=== PATIENT | female | born 1990 | race Caucasian/White ===

== ENCOUNTER → 2018-05-07 15:13 | Outpatient (CLI) | payer MEDICAID, SELFPAY ==
[2018-05-07 16:15] LABS: Thyroid Stimulating Hormone 0.78 uIU/ml (0.358-3.740)
[2018-05-09 07:54] LABS: Prolactin 17.6 ng/mL (4.8-23.3)
== END ==
PROVIDERS: Visit Provider Obstetrics & Gynecology
DX: N64.3 Galactorrhea not associated with childbirth (principal)
CPT/HCPCS: 36415; 84146; 84443

== ENCOUNTER → 2018-05-17 15:03 | Outpatient (CLI) | payer MEDICAID, SELFPAY ==
--- NOTE | 2018-05-17 15:05 | US_ITS ---
US breast LT complete INDICATION: Pain and discharge ORDERING PHYSICIAN: Regulo Morataya MD PATIENT AGE: 27 years COMPARISON: None TECHNIQUE: Left breast ultrasound performed with axilla FINDINGS: No solid or cystic nodules evident. Small nodes present in the axilla IMPRESSION: Negative BI-RADS Category: 1 Negative Recommendations: Correlation with physical exam required. Negative mammogram negative ultrasound does not exclude the possibility of malignancy especially there is a palpable nodule. In the palpable nodule should be managed on clinical basis (A letter has been sent to the patient regarding results of the study.)
--- NOTE | 2018-05-17 15:05 | US_ITS ---
US transvaginal HISTORY: Right lower quadrant pain ITS.REASON: breast pain and discharge ORDERING PHYSICIAN: Regulo Morataya MD PATIENT AGE: 27 years Comparison: None FINDINGS: There has been a prior hysterectomy. The right ovary is 3.8 x 1.7 cm. Blood flow is present. No mass or cyst. The left ovary is 4 x 2.6 cm with blood flow noted. No mass or cyst evident. No cul-de-sac fluid. IMPRESSION: Prior hysterectomy otherwise negative pelvic ultrasound
== END ==
PROVIDERS: PCP Obstetrics & Gynecology; Visit Provider Obstetrics & Gynecology
DX: R10.2 Pelvic and perineal pain (principal); N64.4 Mastodynia
CPT/HCPCS: 76641; 76830

== ENCOUNTER → 2018-06-28 09:01 | Outpatient (CLI) | payer MEDICAID, SELFPAY ==
[2018-06-28 09:05] LABS: Microscopic, Urine URINE MICROSCOPIC (MICROSCOPIC)
[2018-06-28 09:53] LABS: Basophils % 0.8 % (0.1-2.0); Eosinophils # 0.3 K/mm3 (0.0-0.4); Eosinophils % 6.7 % (0.1-12.0); Hemoglobin 13.6 g/dL (12.2-16.2); Lymphocytes # 1.9 K/mm3 (0.7-4.5); Lymphocytes % 37.2 % (10-50); Mean Corpuscular HGB Conc 33.1 g/dL (31.8-35.4); Mean Corpuscular Hemoglobin 28.6 pg (27.0-31.2); Mean Corpuscular Volume 86.5 fl (81-99); Mean Platelet Volume 8.1 fl (7.4-10.4); Monocytes # 0.2 K/mm3 (0.1-1.0); Monocytes % 3.7 % (1.7-9.3); Neutrophils # 2.6 K/mm3 (1.8-7.8); Neutrophils % 51.7 % (37.0-80.0); Platelet Count 292 K/mm3 (142-424); Red Blood Count 4.75 M/mm3 (4.20-5.40); Red Cell Distribution Width 12.3 % (11.5-17.5); White Blood Count 5.1 K/mm3 (4.8-10.8)
[2018-06-28 10:34] LABS: Appearance,Urine CLEAR (Clear); Bilirubin,Urine Negative (Negative); Blood, Urine Negative (Negative); Color,Urine YELLOW (Yellow); Glucose,Urine (UA) Negative (Negative); Ketones,Urine Negative (Negative); Leukocyte Esterase,Urine Negative (Negative); Nitrate,Urine Negative (Negative); Protein,Urine Negative (Negative); Specific Gravity, Urine 1.025 (1.005-1.030); Urobilinogen,Urine 0.2 EU/dl (0.2)
[2018-06-28 10:35] LABS: Urine Pregnancy, HCG Qual. Negative (Negative)
[2018-06-28 10:56] LABS: Bacteria,Urine 4+ /lpf; RBC,Urine Occasional #/hpf (0-3); Trichomonas,Urine 1+ /lpf
[2018-06-28 11:10] LABS: Alanine Aminotransferase 27 U/L (12-78); Albumin Level 3.6 gm/dL (3.4-5.0); Alkaline Phosphatase 80 U/L (46-116); Anion Gap 14.2 mEq/L (5-15); Aspartate Amino Transferase 13 U/L (15-37); Bilirubin,Total 0.3 mg/dL (0.2-1.0); Blood Urea Nitrogen 7 mg/dL (7-18); Calcium 8.6 mg/dL (8.5-10.1); Carbon Dioxide 24 mmol/L (21.0-32.0); Chloride 105 mmol/L (98-107); Creatinine,Serum 0.62 mg/dL (0.55-1.02); Estimated Glomerular Filt Rate 114 ml/min (>60); GFR (African American) 138 ML/MIN (>60); Globulin 3.6 gm/dl (1.3-3.2); Glucose 118 mg/dL (74-106); Potassium 4.2 mmoL/L (3.5-5.1); Sodium 139 mmol/L (136-145); Total Protein,Serum 7.2 gm/dL (6.4-8.2)
== END ==
PROVIDERS: Visit Provider Obstetrics & Gynecology
DX: Z01.818 Encounter for other preprocedural examination (principal); R10.2 Pelvic and perineal pain
CPT/HCPCS: 36415; 80053; 81001; 81025; 85025; 87086; 87088; 87186

== ENCOUNTER → 2018-09-14 09:15 | Outpatient (CLI) | payer MEDICAID, SELFPAY ==
[2018-09-14 09:19] LABS: Microscopic, Urine URINE MICROSCOPIC (MICROSCOPIC)
[2018-09-14 09:50] LABS: Basophils # 0.1 K/mm3 (0-0.2); Eosinophils # 0.3 K/mm3 (0.0-0.4); Eosinophils % 6.4 % (0.1-12.0); Hemoglobin 12.4 g/dL (12.2-16.2); Lymphocytes # 1.7 K/mm3 (0.7-4.5); Lymphocytes % 32.4 % (10-50); Mean Corpuscular HGB Conc 32.7 g/dL (31.8-35.4); Mean Corpuscular Hemoglobin 27.9 pg (27.0-31.2); Mean Corpuscular Volume 85.3 fl (81-99); Mean Platelet Volume 7.9 fl (7.4-10.4); Monocytes # 0.3 K/mm3 (0.1-1.0); Monocytes % 5.1 % (1.7-9.3); Neutrophils # 2.9 K/mm3 (1.8-7.8); Neutrophils % 55.1 % (37.0-80.0); Platelet Count 293 K/mm3 (142-424); Red Blood Count 4.46 M/mm3 (4.20-5.40); Red Cell Distribution Width 13.2 % (11.5-17.5); White Blood Count 5.3 K/mm3 (4.8-10.8)
[2018-09-14 10:04] LABS: Appearance,Urine TURBID (Clear); Bilirubin,Urine Negative (Negative); Blood, Urine Negative (Negative); Color,Urine YELLOW (Yellow); Glucose,Urine (UA) Negative (Negative); Ketones,Urine Negative (Negative); Leukocyte Esterase,Urine Negative (Negative); Nitrate,Urine Negative (Negative); PH,Urine 5.5 (5.0-8.5); Protein,Urine Negative (Negative); Specific Gravity, Urine >= 1.030 (1.005-1.030); Urobilinogen,Urine 0.2 EU/dl (0.2)
[2018-09-14 10:16] LABS: Bacteria,Urine 1+ /lpf; RBC,Urine Occasional #/hpf (0-3)
[2018-09-14 12:08] LABS: Alanine Aminotransferase 53 U/L (12-78); Albumin Level 3.4 gm/dL (3.4-5.0); Alkaline Phosphatase 71 U/L (46-116); Aspartate Amino Transferase 21 U/L (15-37); Bilirubin,Total 0.4 mg/dL (0.2-1.0); Blood Urea Nitrogen 6 mg/dL (7-18); Calcium 8.8 mg/dL (8.5-10.1); Carbon Dioxide 26 mmol/L (21.0-32.0); Chloride 104 mmol/L (98-107); Creatinine,Serum 0.77 mg/dL (0.55-1.02); Estimated Glomerular Filt Rate 89 ml/min (>60); GFR (African American) 107 ML/MIN (>60); Globulin 3.3 gm/dl (1.3-3.2); Glucose 165 mg/dL (74-106); HCG,Quantitative 0 mIU/mL; Sodium 138 mmol/L (136-145); Total Protein,Serum 6.7 gm/dL (6.4-8.2)
== END ==
PROVIDERS: Visit Provider Obstetrics & Gynecology
DX: Z01.818 Encounter for other preprocedural examination (principal); R10.2 Pelvic and perineal pain
CPT/HCPCS: 36415; 80053; 81001; 84702; 85025

== ENCOUNTER → 2018-09-20 10:06 | Outpatient (CLI) | payer MEDICAID, SELFPAY ==
[2018-09-20 11:52] LABS: Basophils % 0.6 % (0.1-2.0); Eosinophils # 0.2 K/mm3 (0.0-0.4); Eosinophils % 3.5 % (0.1-12.0); Hematocrit 38.2 % (37.0-47.0); Hemoglobin 12.5 g/dL (12.2-16.2); Lymphocytes # 3.1 K/mm3 (0.7-4.5); Lymphocytes % 44.7 % (10-50); Mean Corpuscular HGB Conc 32.8 g/dL (31.8-35.4); Mean Corpuscular Hemoglobin 29.3 pg (27.0-31.2); Mean Corpuscular Volume 89.3 fl (81-99); Mean Platelet Volume 8.3 fl (7.4-10.4); Monocytes # 0.3 K/mm3 (0.1-1.0); Neutrophils # 3.3 K/mm3 (1.8-7.8); Neutrophils % 47.3 % (37.0-80.0); Platelet Count 313 K/mm3 (142-424); Red Blood Count 4.28 M/mm3 (4.20-5.40); Red Cell Distribution Width 13.5 % (11.5-17.5)
[2018-09-20 11:57] LABS: Anion Gap 13.6 mEq/L (5-15); Blood Urea Nitrogen 11 mg/dL (7-18); Calcium 8.9 mg/dL (8.5-10.1); Carbon Dioxide 27 mmol/L (21.0-32.0); Chloride 106 mmol/L (98-107); Creatinine,Serum 0.86 mg/dL (0.55-1.02); Estimated Glomerular Filt Rate 78 ml/min (>60); GFR (African American) 94 ML/MIN (>60); Glucose 138 mg/dL (74-106); Potassium 3.6 mmoL/L (3.5-5.1); Sodium 143 mmol/L (136-145)
== END ==
PROVIDERS: Visit Provider Obstetrics & Gynecology
DX: G89.18 Other acute postprocedural pain (principal)
CPT/HCPCS: 36415; 80048; 85025

== ENCOUNTER 2019-07-22 15:38 | Emergency (ER) | payer MEDICAID, SELFPAY ==
[2019-07-22 16:01] VITALS: BP 133/105; PULSE 114; RESP 20; TEMP 36.6; O2SAT 97; BMI 58.6
--- NOTE | 2019-07-22 16:06 | HMH.EDUTC ---
[facility] – [place] Disposition Clinical Impression: Allergic reaction Qualifiers: Encounter type: initial encounter Qualified Code(s): T78.40XA - Allergy, unspecified, initial encounter Disposition: Home, Self-Care Condition on Discharge: Good Instructions: DI for General Allergic Reactions, Azithromycin, Prednisone Additional Instructions: Stop taking Augmentin and make sure to alert your family provider and pharmacy that you had a reaction to this medication *Start azithromycin Start Medrol dose pack tomorrow as you had steriod shot in [facility] today Return if needed Follow up with family doctor if no improvement or any worsening of symptoms Straight to ER if any life threatening symptoms Prescriptions: methylPREDNISolone [Medrol 4mg tab] 4 mg PO DIRECTED #21 tab Transmission Status: Received by [id number] Azithromycin [Z-Maximiliano 250mg Tab] 250 mg PO DIRECTED #6 tab Transmission Status: Received by [id number] Referrals: Radha Chau MD [Primary Care Provider] - As needed Time of Disposition: 16:39 Medical Decision Making - Stepan Inquiry Pt receiving controlled substance: No Stepan was queried for this patient: No Vital Signs: 07/22/19 16:01 Temperature 97.8 F Temperature Source Oral Pulse Rate [Right Brachial] 114 H Respiratory Rate 20 Blood Pressure [Right Arm] 133/105 H Blood Pressure Mean [Right Arm] 114 Blood Pressure Source [Right Arm] Automatic Cuff Blood Pressure Position [Right Arm] Sitting 02 Sat by Pulse Oximetry 97 Oxygen Delivery Method Room Air Orders (Tests/Meds): ED MEDICATIONS Discontinued Medications Generic Name Dose Route Start Last Admin Trade Name Freq PRN Reason Stop Dose Admin Famotidine 20 mg 07/22/19 16:14 07/22/19 16:25 Pepcid 20mg Tablet PO 07/22/19 16:15 20 mg ONCE ONE Administration Loratadine 10 mg 07/22/19 16:14 07/22/19 16:25 Claritin 10mg Tablet PO 07/22/19 16:15 10 mg ONCE ONE Administration Methylprednisolone Sodium Succinate 125 mg 07/22/19 16:13 07/22/19 16:25 Solu-Medrol 125mg/2ml Vial IM 07/22/19 16:14 125 mg ONCE ONE Administration - Physician Consults Physician Consulted: Isac Time: 16:10 Comment/Response: Spoke with Dr Chau patient PCP nurse which was speaking with Dr Chau, advised that patient was having a reaction to Augmentin that she was given on Monday for PN and was changing it to Zpack and given oral steroids for home and she agreed - Reevaluation(s) Time: 16:38 Reevaluation #1: Rash improved after injection Patient educated to stop taking Augmentin and start azithromycin Follow up with family doctor if rash returns [facility] – [place] HPI - General Stated complaint: possible allergic reaction Time Seen by Provider: 07/22/19 16:13 Mode of Arrival: Ambulatory Source of Information: Patient Limitations: No Limitations Description of Symptoms (Recalled from Triage Doc. by RN): PATIENT C/O ITCHY, RED, RAISED RASH TO BILATERAL LEGS, BACK, AND RIGHT BREAST SINCE YESTERDAY. PATIENT RECENTLY STARTED ON AUGMENTIN FOR PNEUMONIA ON MONDAY HEENT Symptoms (Recalled from RN notes): No Resp Symptoms (Recalled from RN notes): No Skin Symptoms (Recalled from RN notes): Yes MS Symptoms (Recalled from RN notes): No Functional Status (Recalled from RN notes): WNL - History of Present Illness Provider Complaint: Patient state that she was started on Augmentin on Monday for Pneumonia and then yesterday she started breaking out in rash and her lips was swollen and she took some benadryl and it helped but today took the medication again and started breaking out again State that she took a benadryl prior to arrival and it has helped some - Related Data Home Medications Medication Instructions Recorded Confirmed Amoxicillin/Potassium Clav 1 tab PO Q12H 07/22/19 07/22/19 [Augmentin 875-125 Tablet] Escitalopram Oxalate [Lexapro] 20 mg PO DAILY 07/22/19 07/22/19 Promethazine HCl [Phenergan 25mg 25 mg PO Q6H
[2019-07-22 16:43] VITALS: BP 150/97; PULSE 114; RESP 20; TEMP 36.6; O2SAT 97
== END 2019-07-22 16:45 | disposition home or self-care (01) ==
PROVIDERS: Emergency Provider Nurse Practitioner; PCP Family Medicine
DX: L27.0 Generalized skin eruption due to drugs and medicaments taken internally (principal); T36.0X5A Adverse effect of penicillins, initial encounter; T36.1X5A Adverse effect of cephalosporins and other beta-lactam antibiotics, initial encounter; J45.909 Unspecified asthma, uncomplicated; E11.9 Type 2 diabetes mellitus without complications; K21.9 Gastro-esophageal reflux disease without esophagitis; E66.01 Morbid (severe) obesity due to excess calories; Z68.43 Body mass index [BMI] 50.0-59.9, adult; F33.1 Major depressive disorder, recurrent, moderate
CPT/HCPCS: 96372; 99201

== ENCOUNTER 2019-12-26 10:47 | Emergency (ER) | payer MEDICAID, SELFPAY ==
[2019-12-26 11:00] VITALS: BP 128/67; PULSE 107; RESP 20; TEMP 37.1; O2SAT 98; BMI 51.2
--- NOTE | 2019-12-26 11:22 | HMH.EDUTC ---
[facility] [place] Clinical Impression: Dizziness Disposition: Home, Self-Care Condition on Discharge: Good Instructions: Vertigo, Meclizine Additional Instructions: Take medication as prescribed Get outpatient tested as was ordered by your Family Physician Follow up with your Family Doctor as scheduled Return if needed Straight to ER If any life threatening symptoms Prescriptions: Meclizine HCl [Antivert 12.5mg tablet] 12.5 mg PO BID PRN #6 tab PRN Reason: Dizziness Transmission Status: Received by [id number] Referrals: Norah Monaco APRN [Primary Care Provider] - As needed Forms: Work/School Release Time of Disposition: 11:54 Medical Decision Making - Stepan Inquiry Pt receiving controlled substance: No Stepan was queried for this patient: No Vital Signs: 12/26/19 11:00 12/26/19 12:01 Temperature 98.7 F 98.7 F Temperature Source Oral Pulse Rate 107 H Pulse Rate [Right Brachial] 107 H Respiratory Rate 20 20 Blood Pressure 128/67 Blood Pressure [Right Arm] 128/67 Blood Pressure Mean [Right Arm] 87 Blood Pressure Source [Right Arm] Automatic Cuff Blood Pressure Position [Right Arm] Sitting 02 Sat by Pulse Oximetry 98 Oxygen Delivery Method Room Air Orders (Tests/Meds): ED MEDICATIONS Discontinued Medications Generic Name Dose Route Start Last Admin Trade Name Freq PRN Reason Stop Dose Admin Meclizine HCl 12.5 mg 12/26/19 11:30 12/26/19 11:42 Meclizine 12.5mg Tablet PO 12/26/19 11:31 12.5 mg ONCE ONE Administration - Physician Consults Physician Consulted: Norah Monaco Time: 11:30 Reason -: Other Comment/Response: Spoke with patients PCP at [facility] and they advised that they had seen patient on Monday and did Strep, Influenza and COVID swab and everything was negative and did not do any lab work, and prescribed her Zofran for N/V States that patient did come back in this morning stating that she wasnt feeling any better and they ordered some xrays and she acted upset and told them she was coming here Medical Decision Narrative: Spoke with patient about ordered tests that her PCP ordered and she advised that she had the order with her and plans on completing the testing after getting something to help with her dizziness States that she is just here to see if she can get something for dizziness Discussed transfer to the ED for further evaluation and patient declined State that she wants medication for her dizziness and she will follow up with her PCP also discussed where patient reported that she had lab work on Monday that said she had Ecoli in blood and patient reports that was an error States that when she was a child they found ecoli in her stool and told her that she may have it again and where she was having diarrhea she thought that may be the cause that her PCP did not do any Blood test on Monday Patient reports dizziness much improved after medication, patient was given outpatient order for diarrhea panel to collect stool for panel testing and requested results be sent to PCP due to history [facility] [place] - General Stated complaint: diagnosed e coli 1103, dizzy Time Seen by Provider: 12/26/19 11:22 Mode of Arrival: Ambulatory Source of Information: Patient Limitations: No Limitations Description of Symptoms (Recalled from Triage Doc. by RN): PATIENT C/O NAUSEA/VOMITING/DIARRHEA, HEADACHE, DIZZINESS, BODY ACHES, AND FEVER. SHE REPORTS SHE SAW PCP ON MONDAY WHO DID BLOOD WORK WHICH SHOWED E-COLI IN BLOOD. SHE ALSO STATES SHE SAW PCP THIS MORNING FOR CONTINUING SYMPTOMS. HEENT Symptoms (Recalled from RN notes): No Resp Symptoms (Recalled from RN notes): Yes Skin Symptoms (Recalled from RN notes): No MS Symptoms (Recalled from RN notes): No Functional Status (Recalled from RN notes): WNL - History of Present Illness Provider Complaint: Patient states that she saw her PCP earlier and patient reports she wasnt satisfied so she came here State that
[2019-12-26 12:01] VITALS: BP 128/67; PULSE 107; RESP 20; TEMP 37.1; O2SAT 98
== END 2019-12-26 12:08 | disposition home or self-care (01) ==
PROVIDERS: Emergency Provider Nurse Practitioner; PCP Nurse Practitioner
DX: R42 Dizziness and giddiness (principal); J45.909 Unspecified asthma, uncomplicated; F33.1 Major depressive disorder, recurrent, moderate; E11.9 Type 2 diabetes mellitus without complications; K21.9 Gastro-esophageal reflux disease without esophagitis; E66.01 Morbid (severe) obesity due to excess calories; Z68.43 Body mass index [BMI] 50.0-59.9, adult; Z79.899 Other long term (current) drug therapy
CPT/HCPCS: 99201

== ENCOUNTER 2020-03-15 15:02 | Emergency (ER) | payer MEDICAID, SELFPAY ==
[2020-03-15 15:07] VITALS: BP 133/90; PULSE 70; RESP 18; TEMP 36.9; O2SAT 97; BMI 43.3
--- NOTE | 2020-03-15 15:37 | HMH.EDANX ---
ED Disposition Clinical Impression: Acute anxiety Disposition: Home, Self-Care Condition on Discharge: Good Instructions: Anxiety and Panic Attacks (Alternative Therapy) Prescriptions: hydrOXYzine HCL [Hydroxyzine HCl] 50 mg PO Q8H PRN #30 tab PRN Reason: Anxiety Transmission Status: Pending to [id number] Referrals: Joyce Shaw [Primary Care Provider] - - Critical Care Critical Care Time: No Attestation: On 03/15/20, the high probability of a clinically significant, sudden or life threatening deterioration of the following system(s) required my full and direct attention, intervention and personal management. The time I documented below is in addition to time spent performing reported procedures but includes the following listed in this critical care notation. Medical Decision Making - Medical Records Medical records reviewed: Yes: I reviewed the patient's medical records. - Stepan Inquiry Pt receiving controlled substance: No Vital Signs: 03/15/20 15:07 Temperature 98.5 F Temperature Source Oral Pulse Rate [Left Radial] 70 Respiratory Rate 18 Blood Pressure [Left Arm] 133/90 Blood Pressure Mean [Left Arm] 104 Blood Pressure Source [Left Arm] Automatic Cuff Blood Pressure Position [Left Arm] Sitting 02 Sat by Pulse Oximetry 97 Oxygen Delivery Method Room Air Anxiety HPI - General Chief Complaint: Anxiety Stated Complaint: panic attack Time Seen by Provider: 03/15/20 15:30 Mode of Arrival: Ambulatory Source of Information: Patient Limitations: No Limitations Description of Symptoms (Recalled from ER Triage Doc. by RN): Pt reports I'm having a panic attack . Pt reports began getting anxious at aprox 1230 pm today, states no certain stressors, states has multiple life stressors at this time. Pt reports is currently taking Lexapro and is waiting on PA for Vraylar. - History of Present Illness HPI narrative: This is a 29-year-old female who presents with anxiety attack ongoing since earlier this afternoon. Patient reported anxiety began when taken by having go to work. 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 Patient feels short of breath chest tightness and is nauseated. Symptoms not palliated or provoked by any measure. No diaphoresis or orthopnea associated with her symptoms. Patient does report being on Lexapro but has also been placed on another anxiolytic but has not been able to get this medication due to lack of prior authorization. - Related Data Home Medications: Home Medications Medication Instructions Recorded Confirmed Budesonide 0.25 mg IH DAILY 12/26/19 12/26/19 Escitalopram Oxalate [Lexapro] 20 mg PO DAILY 12/26/19 12/26/19 Mirtazapine [Remeron 15mg tablet] 15 mg PO DAILY 12/26/19 12/26/19 Valacyclovir HCl [Valtrex] 1,000 mg PO DAILY 12/26/19 12/26/19 Previous Rx's Medication Instructions Recorded Meclizine HCl [Antivert 12.5mg 12.5 mg PO BID PRN #6 tab 12/26/19 tablet] hydrOXYzine HCL [Hydroxyzine HCl] 50 mg PO Q8H PRN #30 tab 03/15/20 Allergies/Adverse Reactions: Allergies Allergy/AdvReac Type Severity Reaction Status Date / Time amoxicillin Allergy Verified 12/26/19 11:14 venom-honey bee Allergy Unknown Verified 05/09/19 16:02 allergy reaction venom-wasp protein Allergy Unknown Verified 05/09/19 16:02 allergy reaction [facility] History - Hepatitis A Screen Drug use history?: No High risk sexual behaviors?: No History of sexually transmitted infection?: No Currently employed?: No Childcare worker?: No Do you have indoor plumbing?: Yes Do you have electricity?: Yes Attestation statement:: This patient has been screened for Hepatitis A risk factors. I have reviewed the patient's past medical history: Yes Medical Histo
[2020-03-15 16:16] VITALS: BP 136/86; PULSE 82; RESP 18; TEMP 36.9; O2SAT 97
== END 2020-03-15 16:16 | disposition home or self-care (01) ==
PROVIDERS: Emergency Provider Emergency Medicine; PCP Nurse Practitioner Family
DX: F41.0 Panic disorder [episodic paroxysmal anxiety] (principal); E11.9 Type 2 diabetes mellitus without complications; K21.9 Gastro-esophageal reflux disease without esophagitis; Z79.899 Other long term (current) drug therapy
CPT/HCPCS: 96372; 99281

== ENCOUNTER 2020-03-30 19:22 | Emergency (ER) | payer MEDICAID, SELFPAY ==
[2020-03-30 19:25] VITALS: BP 148/88; PULSE 106; RESP 16; TEMP 36.4; O2SAT 98; BMI 46.5
--- NOTE | 2020-03-30 19:45 | CT_ITS ---
PROCEDURE: CT ABDOMEN PELVIS W CON CLINICAL INDICATION: Abd pain Abdominal pain with nausea and vomiting COMPARISON: CT CT ABDOMEN PELVIS W CON from 01/23/2019 TECHNIQUE: IV Contrast: 75ML Isovue 370 Oral Contrast None Axial images obtained with sagittal and coronal reformats. All CT scans at the facility use one or more dose reduction, viz: automated exposure control, ma/kV adjustment per patient size (including targeted exams where dose is matched to indication, i.e. head), or iterative reconstruction technique. FINDINGS: LOWER THORAX: No acute finding ABDOMEN & PELVIS: There is a small hiatal hernia. Prior cholecystectomy borderline splenomegaly at 14 cm. The adrenal glands and pancreas have an unremarkable appearance. No renal or ureteral calculi. No hydronephrosis. Prior appendectomy. Prior hysterectomy. There is a small umbilical hernia which contains fat. No evidence of diverticulitis. There are few scattered small nodes in the mesenteries. No acute bony findings. IMPRESSION: No acute abdominal or pelvic findings Dictated by: Braulio Sewell MD 03/31/2020 05:48 Braulio Sewell MD in [place] 03/31/2020 05:48
[2020-03-30 19:53] LABS: Microscopic, Urine URINE MICROSCOPIC (MICROSCOPIC)
--- NOTE | 2020-03-30 20:00 | CT_ITS ---
PROCEDURE: CT SOFT TISSUE NECK W CON CLINICAL HISTORY: vomiting Vomiting, aspirating COMPARISON: No exams were available for comparison TECHNIQUE: Oral Contrast: None IV Contrast: 75 mL Isovue 370 Axial images obtained with sagittal and coronal reformats. All CT scans at the facility use one or more dose reduction, viz: automated exposure control, ma/kV adjustment per patient size (including targeted exams where dose is matched to indication, i.e. head), or iterative reconstruction technique. FINDINGS: There is a 19 mm retention cyst in the floor the left maxillary sinus with mild mucosal thickening of the maxillary sinuses and ethmoid sinuses. There are scattered small lymph nodes throughout the neck. The nasopharynx, oropharynx, and hypopharynx have an unremarkable appearance. The epiglottis and glottic region appear unremarkable. The thyroid gland has an unremarkable appearance. Unremarkable appearing parotid and submandibular glands. A small lymph node is present in along the posterior aspect of the left parotid gland and also along the posterior aspect of the right parotid gland these appear fatty replaced and have a benign appearance. There is moderate distension of the esophagus with gas and fluid with a fluid level in the mid and upper aspect of the thoracic esophagus. No acute bony findings. IMPRESSION: 1. Moderate distention of the esophagus containing air-fluid level in the upper 1/2 of the esophagus. This could be related to distal obstruction or reflux . Barium swallow or upper endoscopy may provide further evaluation. 2. Chronic sinusitis Dictated by: Braulio Sewell MD 03/31/2020 06:42 Braulio Sewell MD in [place] 03/31/2020 06:42
[2020-03-30 20:03] LABS: Appearance,Urine SL CLOUDY (Clear); Bilirubin,Urine Negative (Negative); Blood, Urine Negative (Negative); Color,Urine YELLOW (Yellow); Glucose,Urine (UA) Negative (Negative); Ketones,Urine Negative (Negative); Leukocyte Esterase,Urine Negative (Negative); Nitrate,Urine Negative (Negative); PH,Urine 5.5 (5.0-8.5); Protein,Urine 1+ (Negative); Specific Gravity, Urine >= 1.030 (1.005-1.030); Urobilinogen,Urine 0.2 EU/dl (0.2)
--- NOTE | 2020-03-30 20:05 | HMH.EDNVD ---
ED Disposition Clinical Impression: Esophageal disorder Disposition: Home, Self-Care Condition on Discharge: Good Instructions: DI for Acute Abdominal Pain Additional Instructions: call gi and pcp for follow up Referrals: Joyce Shaw [Primary Care Provider] - James Liu [Referring] - Lester Cornejo MD [Staff Physician] - - Critical Care Critical Care Time: No Attestation: On 03/30/20, the high probability of a clinically significant, sudden or life threatening deterioration of the following system(s) required my full and direct attention, intervention and personal management. The time I documented below is in addition to time spent performing reported procedures but includes the following listed in this critical care notation. Medical Decision Making - Medical Records Medical records reviewed: Yes: I reviewed the patient's medical records. - Stepan Inquiry Pt receiving controlled substance: No Vital Signs: 03/30/20 19:25 Temperature 97.6 F Temperature Source Oral Pulse Rate [Right Radial] 106 H Respiratory Rate 16 Blood Pressure [Right Arm] 148/88 H Blood Pressure Mean [Right Arm] 108 Blood Pressure Source [Right Arm] Automatic Cuff Blood Pressure Position [Right Arm] Supine 02 Sat by Pulse Oximetry 98 Oxygen Delivery Method Room Air - Lab Data Lab results reviewed: Yes: I reviewed the patient's lab results. Lab Results 03/30/20 19:45: Urine Color Yellow, Urine Appearance Sl cloudy, Urine pH 5.5, Ur Specific Lillian >= 1.030, Urine Protein 1+, Urine Glucose (UA) Negative, Urine Ketones Negative, Urine Blood Negative, Urine Nitrate Negative, Urine Bilirubin Negative, Urine Urobilinogen 0.2, Ur Leukocyte Esterase Negative, Urine RBC 3-5, Urine WBC 5-10, Ur Squamous Epith Cells 10-20, Urine Bacteria 1+ 03/30/20 19:45: Urine HCG, Qual Negative 03/30/20 20:24: WBC 8.7, RBC 4.49, Hgb 13.0, Hct 38.1, MCV 84.8, MCH 28.9, MCHC 34.2, RDW 12.8, Plt Count 276, MPV 7.7, Neut % (Auto) 65.3, Lymph % (Auto) 26.2, [place] % (Auto) 4.1, Eos % (Auto) 3.6, Baso % (Auto) 0.8, Neut # (Auto) 5.7, Lymph # (Auto) 2.3, [place] # (Auto) 0.4, Eos # (Auto) 0.3, Baso # (Auto) 0.1, ESR 16 03/30/20 20:24: Sodium 139, Potassium 3.8, Chloride 105, Carbon Dioxide 28, Anion Gap 9.8, BUN 8, Creatinine 0.50 L, Estimated Creat Clear 147, Estimated GFR 144, Est GFR ( Amer) 174, Glucose 136 H, Calcium 9.5, Total Bilirubin 0.4, AST 27, ALT 31, Alkaline Phosphatase 81, C-Reactive Protein 3.7, Total Protein 7.7, Albumin 4.4, Globulin 3.3 H, Albumin/Globulin Ratio 1.3, Amylase 48, Lipase 116, Procalcitonin 0.030 Result diagrams: 03/30/20 20:24 03/30/20 20:24 Orders (Tests/Meds): ED MEDICATIONS Generic Name Dose Route Start Last Admin Trade Name Freq PRN Reason Stop Dose Admin Sodium Chloride 1,000 mls @ 999 mls/hr 03/30/20 19:45 03/30/20 19:55 Sod Chlor 0.9% 1000ml Bag IV 03/30/20 20:45 999 mls/hr .Q1H1M ELISABETH Administration Sodium Chloride 8 ml 03/30/20 20:10 03/30/20 20:14 Sodium Chloride 0.9% 10ml Vial IV 04/29/20 20:09 8 ml NEEDED PRN Administration dilute pepcid Discontinued Medications Generic Name Dose Route Start Last Admin Trade Name Freq PRN Reason Stop Dose Admin Famotidine 20 mg 03/30/20 20:10 03/30/20 20:14 Famotidine 20mg/2ml Vial IV 03/30/20 20:11 20 mg ONCE ONE Administration Iopamidol 75 ml 03/30/20 21:21 03/30/20 21:23 Iopamidol-370 (76%);100ml Bottle IV 03/30/20 21:22 75 ml ONCE ONE Administration Iopamidol 50 ml 03/30/20 21:23 03/30/20 21:24 Iopamidol-370 (76%); 50ml Vial IV 03/30/20 21:24 50 ml ONCE ONE Administration Ketorolac Tromethamine 30 mg 03/30/20 19:45 03/30/20 19:56 Ketorolac 30mg/Ml Vial IV 03/30/20 19:46 30 mg ONCE ONE Administration Metoclopramide HCl 10 mg 03/30/20 20:10 03/30/20 20:14 Metoclopramide Hcl 10mg/2ml Vial IVP 03/30/20 20:11 10 mg ONCE ONE Administration Ondansetron HCl 4 mg 03/30/20 1
[2020-03-30 20:14] LABS: Bacteria,Urine 1+ /lpf; Urine Pregnancy, HCG Qual. Negative (Negative)
[2020-03-30 20:38] LABS: Chloride 105 mmol/L (98-107); Sodium 139 mmol/L (136-145)
[2020-03-30 20:39] LABS: Potassium 3.8 mmoL/L (3.5-5.1)
[2020-03-30 20:41] LABS: Alanine Aminotransferase 31 U/L (12-78); Alkaline Phosphatase 81 U/L (38-126); Amylase 48 U/L (30-110); Anion Gap 9.8 mEq/L (5-15); Aspartate Amino Transferase 27 U/L (14-36); Bilirubin,Total 0.4 mg/dl (0.2-1.3); Blood Urea Nitrogen 8 mg/dl (7-17); Carbon Dioxide 28 mmol/L (22.0-30.0); Creatinine Clearance Estimated 147 mL/min (50-200); Estimated Glomerular Filt Rate 144 ml/min (>60); GFR (African American) 174 ML/MIN (>60); Glucose 136 mg/dl (74-100); Lipase 116 U/L (23-300)
[2020-03-30 20:42] LABS: Albumin Level 4.4 g/dl (3.5-5.0); Albumin/Globulin Ratio 1.3 (1.1-1.8); Calcium 9.5 mg/dl (8.4-10.2); Globulin 3.3 g/dL (1.3-3.2); Total Protein,Serum 7.7 g/dl (6.3-8.2)
[2020-03-30 20:47] LABS: C-Reactive Protein 3.7 mg/L (0-4)
[2020-03-30 20:51] LABS: Basophils # 0.1 K/mm3 (0-0.2); Basophils % 0.8 % (0.1-2.0); Eosinophils # 0.3 K/mm3 (0.0-0.4); Eosinophils % 3.6 % (0.1-12.0); Hematocrit 38.1 % (37.0-47.0); Lymphocytes # 2.3 K/mm3 (0.7-4.5); Lymphocytes % 26.2 % (10-50); Mean Corpuscular HGB Conc 34.2 g/dL (31.8-35.4); Mean Corpuscular Hemoglobin 28.9 pg (27.0-31.2); Mean Corpuscular Volume 84.8 fl (81-99); Mean Platelet Volume 7.7 fl (7.4-10.4); Monocytes # 0.4 K/mm3 (0.1-1.0); Monocytes % 4.1 % (1.7-9.3); Neutrophils # 5.7 K/mm3 (1.8-7.8); Neutrophils % 65.3 % (37.0-80.0); Platelet Count 276 K/mm3 (142-424); Red Blood Count 4.49 M/mm3 (4.20-5.40); Red Cell Distribution Width 12.8 % (11.5-17.5); White Blood Count 8.7 K/mm3 (4.8-10.8)
[2020-03-30 21:00] VITALS: BP 157/91; PULSE 98; RESP 16; O2SAT 99
[2020-03-30 21:18] LABS: Erythrocyte Sedimentation Rate 16 mm/hr (0-20)
[2020-03-30 23:02] VITALS: BP 137/80; PULSE 92; RESP 16; TEMP 36.7; O2SAT 97
== END 2020-03-30 23:06 | disposition home or self-care (01) ==
PROVIDERS: Emergency Medicine; Emergency Provider Emergency Medicine; PCP Nurse Practitioner Family
DX: K22.9 Disease of esophagus, unspecified (principal); E11.9 Type 2 diabetes mellitus without complications; K21.9 Gastro-esophageal reflux disease without esophagitis; F31.9 Bipolar disorder, unspecified; F43.10 Post-traumatic stress disorder, unspecified; F33.1 Major depressive disorder, recurrent, moderate; Z79.899 Other long term (current) drug therapy
CPT/HCPCS: 70491; 74177; 80053; 81001; 81025; 82150; 83690; 84145; 85025; 85651; 86140; 96365; 96375; 99283; J2405; Q9967

== ENCOUNTER 2020-04-26 15:59 | Emergency (ER) | payer MEDICAID, SELFPAY ==
[2020-04-26 16:00] VITALS: BP 127/71; BP 143/83; PULSE 82; PULSE 89; RESP 18; RESP 20; TEMP 36.7; O2SAT 98; O2SAT 99; BMI 48.1
--- NOTE | 2020-04-26 16:01 | HMH.EDGENADL ---
ED Disposition Clinical Impression: Incisional pain Disposition: Home, Self-Care Condition on Discharge: Good Additional Instructions: Use abdominal binder over the next several days. Keep incisional sites clean, dry, and intact. Return immediately if any new or worsening symptoms or change in bowel habits prior to following up with general surgery team. Please call your general surgery team tomorrow morning to schedule a follow-up as soon as possible. Referrals: PCP,No [Primary Care Provider] - - Critical Care Critical Care Time: No Attestation: On , the high probability of a clinically significant, sudden or life threatening deterioration of the following system(s) required my full and direct attention, intervention and personal management. The time I documented below is in addition to time spent performing reported procedures but includes the following listed in this critical care notation. Medical Decision Making - Medical Records Medical records reviewed: Yes: I reviewed the patient's medical records. - Stepan Inquiry Pt receiving controlled substance: Yes Stepan was queried for this patient: No Risks and benefits of using a controlled substance: were discussed with pt by me Vital Signs: 04/26/20 16:00 04/26/20 16:30 Temperature 98.1 F Temperature Source Oral Pulse Rate [Left Radial] 82 91 H Respiratory Rate 18 18 Blood Pressure [Right Arm] 127/71 131/80 Blood Pressure Mean [Right Arm] 89 97 Blood Pressure Source [Right Arm] Automatic Cuff Blood Pressure Position [Right Arm] Sitting 02 Sat by Pulse Oximetry 98 98 Oxygen Delivery Method Room Air Orders (Tests/Meds): ED MEDICATIONS Discontinued Medications Generic Name Dose Route Start Last Admin Trade Name Freq PRN Reason Stop Dose Admin Hydrocodone Bitart/Acetaminophen 1 tab 04/26/20 16:18 04/26/20 16:20 Hydrocodone/Apap 5/325 Mg Tablet PO 04/26/20 16:19 1 tab ONCE ONE Administration Medical Decision Narrative: Patient presents the emergency department after small incision open status post laparoscopic hernia repair. Patient does have some pain on arrival so given p.o. hydrocodone?acetaminophen. At this time, she has normal active bowel sounds without any GI complaints. Other incisional sites are well-appearing without overlying induration or any purulent drainage. This incision site has no protrusion of any abdominal contents or other findings. Reached out to on-call surgeon for Dr. Carvalho, Dr. Monae. After careful discussion, plan for patient to have Dermabond reapplied and call Dr. Carvalho's office tomorrow to schedule a follow-up sooner than initially scheduled made. I believe this is reasonable. Patient also agrees as her pain is subsided after p.o. [place] which she has a prescription at home. Dermabond applied. Patient given return precautions and instructed to use her abdominal binder as instructed by surgery team. She return if any change in bowel habits, nausea/vomiting, increased pain, reopening of incision, or other new concerning symptoms. Assessment: Open abdominal incision Recent hernia repair Disposition: Home after Dermabond repair with surgery follow-up General Adult HPI - General Stated complaint: open incision from hernia repair Time Seen by Provider: 04/26/20 16:25 - History of Present Illness HPI narrative: Patient is a 29-year-old female history of recent laparoscopic hernia repair at [facility] via Dr. Carvalho presenting due to open incision. Patient states she had laparoscopic hernia repair. She had some pain ever since. She was told that she can take the abdominal binder off 3 days status post surgery when she went to the bathroom and for other certain activities. While the binder was off, one of her incisional sites opened. Small amount of blood oozed out and she felt a minor pain at the site. She reached out to on-call nurse for her surgeon. Patient was redirected
[2020-04-26 16:30] VITALS: BP 131/80; PULSE 91; RESP 18; O2SAT 98
--- NOTE | 2020-04-26 16:33 | PC.NURSE ---
Calling [facility] per Dr Montenegro to speak with pt's surgeon, invertebrate paleontologist this weekend is Dr. Monae. He is speaking with Dr Montenegro at this time.
[2020-04-26 17:00] VITALS: PULSE 87; RESP 18; O2SAT 96
[2020-04-26 17:30] VITALS: BP 154/94; PULSE 84; RESP 17; O2SAT 97
[2020-04-26 17:50] VITALS: BP 141/83; PULSE 90; RESP 18; TEMP 36.7; O2SAT 98
== END 2020-04-26 17:52 | disposition home or self-care (01) ==
PROVIDERS: Emergency Provider Emergency Medicine
DX: T81.31XA Disruption of external operation (surgical) wound, not elsewhere classified, initial encounter (principal); E11.9 Type 2 diabetes mellitus without complications; K21.9 Gastro-esophageal reflux disease without esophagitis; E66.01 Morbid (severe) obesity due to excess calories; Z68.42 Body mass index [BMI] 45.0-49.9, adult; F31.9 Bipolar disorder, unspecified; F33.9 Major depressive disorder, recurrent, unspecified; Z79.899 Other long term (current) drug therapy
CPT/HCPCS: 12020; 99283

== ENCOUNTER → 2020-07-03 18:06 | Outpatient (CLI) | payer MEDICAID, SELFPAY ==
[2020-07-03 18:28] LABS: Basophils # 0.1 K/mm3 (0-0.2); Basophils % 1.3 % (0.1-2.0); Eosinophils # 0.5 K/mm3 (0.0-0.4); Eosinophils % 7.2 % (0.1-12.0); Hematocrit 38.6 % (37.0-47.0); Hemoglobin 13.1 g/dL (12.2-16.2); Lymphocytes # 2.2 K/mm3 (0.7-4.5); Lymphocytes % 35.6 % (10-50); Mean Corpuscular HGB Conc 33.9 g/dL (31.8-35.4); Mean Corpuscular Hemoglobin 29.2 pg (27.0-31.2); Mean Corpuscular Volume 86.3 fl (81-99); Mean Platelet Volume 8.6 fl (7.4-10.4); Monocytes # 0.3 K/mm3 (0.1-1.0); Monocytes % 4.9 % (1.7-9.3); Neutrophils # 3.2 K/mm3 (1.8-7.8); Platelet Count 258 K/mm3 (142-424); Red Blood Count 4.47 M/mm3 (4.20-5.40); Red Cell Distribution Width 13.5 % (11.5-17.5); White Blood Count 6.3 K/mm3 (4.8-10.8)
[2020-07-03 18:34] LABS: Alanine Aminotransferase 24 U/L (12-78); Albumin Level 4.5 g/dl (3.5-5.0); Albumin/Globulin Ratio 1.7 (1.1-1.8); Alkaline Phosphatase 71 U/L (38-126); Aspartate Amino Transferase 24 U/L (14-36); Bilirubin,Total 0.4 mg/dl (0.2-1.3); Blood Urea Nitrogen 7 mg/dl (7-17); Calcium 9.4 mg/dl (8.4-10.2); Carbon Dioxide 25 mmol/L (22.0-30.0); Chloride 104 mmol/L (98-107); Chol/HDL Ratio 3.4 (1-3.5); Cholesterol 155 mg/dl (140-200); Estimated Glomerular Filt Rate 117 ml/min (>60); GFR (African American) 141 ML/MIN (>60); Globulin 2.7 g/dL (1.3-3.2); Glucose 99 mg/dl (74-100); HDL Cholesterol 46 mg/dl (40-60); Sodium 138 mmol/L (136-145); Total Protein,Serum 7.2 g/dl (6.3-8.2); Triglycerides 131 mg/dl (30-150); VLDL Cholesterol 26 mg/dL (0-40)
[2020-07-03 19:03] LABS: Thyroid Stimulating Hormone 2.59 uIU/mL (0.465-4.68)
[2020-07-03 19:21] LABS: Vitamin B12 276 pg/mL (239-931)
[2020-07-03 19:40] LABS: 25-OH Vitamin D, Total 20.2 ng/mL (30-100)
[2020-07-03 19:45] LABS: Hemoglobin A1C 6.4 % (4.0-6.0)
== END ==
PROVIDERS: Visit Provider Nurse Practitioner Family
DX: Z00.00 Encounter for general adult medical examination without abnormal findings (principal); R73.03 Prediabetes; R53.83 Other fatigue; K92.1 Melena; E55.9 Vitamin D deficiency, unspecified
CPT/HCPCS: 80053; 80061; 82306; 82607; 83036; 84443; 85025

== ENCOUNTER 2021-12-19 13:23 | Emergency (ER) | payer MEDICAID, SELFPAY ==
[2021-12-19 14:20] VITALS: BP 115/85; PULSE 103; RESP 16; TEMP 36.8; O2SAT 98; BMI 48.6
--- NOTE | 2021-12-19 14:41 | EXP.UTC ---
Discharge Plan Disposition Patient Disposition: Home, Self-Care Condition: Good Prescriptions Prescriptions: New oseltamivir [Tamiflu] 75 mg capsule 75 mg PO BID 5 Days Qty: 10 0RF No Action escitalopram oxalate 20 MG tablet 20 mg PO DAILY metformin 500 MG tablet 500 mg PO BID cariprazine 1.5 MG capsule 1.5 mg PO DAILY Referrals Follow up/Referrals: Hermila Orlando APRN [Primary Care Provider] - See instructions Activity Restrictions/Add. Instructions Additional Instructions/Restrictions: No sign of a bacterial infection. Likely viral. Viruses can take 7-14 days to run their course. Nasal saline and bulb syringe or nose Barbara to remove nasal drainage to help with nasal congestion. Hard to eat, drink, sleep with nasal congestion so important to keep this cleaned out. Monitor temp. Tylenol or Motrin as needed for pain or fever Encourage fluids, water, Gatorade, Powerade, Pedialyte if infant/toddler/child Warm salt water gargles Warm fluids Sore throat lozenges Sleep elevated Humidifier/vaporizer Follow-up immediately for new or worsening symptoms or no noticeable improvement over the next 48-72 hours. Clinical Impressions Clinical Impression: Influenza A Stand Alone Forms Stand Alone Forms: Work/School Release Instructions Patient Instructions: DI for Influenza -- Adult Discharge ED Provider: Arianne ([facility] [place])Mirna [facility] [place] HPI General Stated complaint: hard time swallowing, Rt ear pain, cough Mode of Arrival: Ambulatory Source of Information: Parent(s) Limitations: No Limitations Time Seen by Provider: 12/19/21 14:41 HEENT Symptoms (Recalled from RN notes): Yes Resp Symptoms (Recalled from RN notes): Yes Skin Symptoms (Recalled from RN notes): No GI/ Symptoms (Recalled from RN notes): No MS Symptoms (Recalled from RN notes): No Card Symptoms (Recalled from RN notes): No Other (Recalled from RN notes): No History of Present Illness Provider Complaint: 31 yr old female presents for nasal drainage and sore throat for 1 day Related Data Home Medications Medication Instructions Recorded Confirmed escitalopram oxalate 20 mg tablet 20 mg PO DAILY Depression 12/26/19 03/30/20 cariprazine 1.5 mg capsule 1.5 mg PO DAILY Depression 03/30/20 03/30/20 metformin 500 mg tablet 500 mg PO BID Diabetes 03/30/20 03/30/20 Previous Rx's Medication Instructions Recorded oseltamivir 75 mg capsule (Tamiflu) 75 mg PO BID 5 days #10 caps 12/19/21 Allergies Allergy/AdvReac Type Severity Reaction Status Date / Time amoxicillin Allergy Verified 12/26/19 11:14 venom-honey bee Allergy Unknown Verified 05/09/19 16:02 allergy reaction venom-wasp protein Allergy Unknown Verified 05/09/19 16:02 allergy reaction PFSH PFSH 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 , 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) Smoking Status: Never smoker second hand exposure: No alcohol intake: never substance use type: denies use and crack/cocaine current occupational status: employed Travel in the last 8 weeks: None household members: children housing: house number of children: 2 current occupation: [employer] current occupational exposures/hazards: No caffeine: Yes ROS Obtained: Yes All systems reviewed & no additional complaints except as documented Constitutional Constitutional: Reports system reviewed and no additional complaints, except as documented, Reports fatigue and Denies fever(s) Eyes Eyes: Reports system reviewed and no additional complaints, except as documented and Denies dry eyes ENT Ears, Nose, Mouth, and Throat: Reports system reviewed and no additional complaints, except as documented and Reports as per HPI Cardiovascular Cardiovascular: Reports system reviewed and no additional complaints, except as documented and Reports as per HPI Respiratory Respiratory: Reports system reviewed and no additional complaints, except as documented, Reports as per HP
[2021-12-19 14:52] VITALS: BP 115/85; PULSE 103; RESP 16; TEMP 36.8; O2SAT 98
[2021-12-19 20:30] LABS: UTC Influenza A Antigen Positive (Negative); UTC Influenza B Antigen Negative (Negative)
== END 2021-12-19 15:01 | disposition home or self-care (01) ==
PROVIDERS: Emergency Provider Nurse Practitioner Family; PCP Nurse Practitioner Family
DX: J10.1 Influenza due to other identified influenza virus with other respiratory manifestations (principal)
CPT/HCPCS: 87804; 99212; G0463

== ENCOUNTER → 2022-03-21 14:05 | Outpatient (CLI) | payer MEDICAID, SELFPAY ==
--- NOTE | 2022-03-21 14:26 | MM_ITS ---
PROCEDURE INFORMATION: Exam: US Right Breast, Complete US Left Breast, Complete MG Bilateral Diagnostic Breast Tomosynthesis Exam date and time: 03/21/2022 2:22 PM Age: 31 years old Clinical indication: Concern for bilateral nipple discharge, reported as clear and bloody, for 2 years, as well as right breast pain. Her paternal grandmother had breast cancer. TECHNIQUE: Imaging protocol: Complete ultrasound of all four quadrants of the Right breast and the retroareolar regions, including ultrasound of the axilla when performed. Complete ultrasound of all four quadrants of the Left breast and the retroareolar regions, including ultrasound of the axilla when performed. Bilateral Diagnostic tomosynthesis and 2D mammography including computer-aided detection (CAD) when performed. Unilateral or bilateral exam. COMPARISON: BREASTLT US breast LT complete 05/17/2018 3:24 PM FINDINGS: MAMMOGRAPHY: Breast composition: There are scattered areas of fibroglandular density. Mass: Scattered bilateral sub cm isodense circumscribed masses. No suspicious mass. Architectural distortion: None. Calcifications: No suspicious calcifications. Asymmetric density: None. Skin thickening: None. Axillary adenopathy: None. Other: No retroareolar dilated ducts. ULTRASOUND: Bilateral sonography, all 4 quadrants, retroareolar and axilla. On the right, mild focal ductal ectasia retroareolar and upper inner quadrant with minimal low-level echoes likely reflecting debris. In the upper inner quadrant 7 cm from the nipple, superficial cyst which may be an oil cyst measuring 0.2 cm. In the upper inner quadrant 8 cm from the nipple, complicated cyst with thin septations measuring 0.6 by 0.3 x 0.4 cm. At 11 o'clock 3 cm from the nipple, simple cyst measuring 0.9 x 0.3 x 0.8 cm. Right axillary node which is more hypoechoic centrally, which may be technical related or reactive, for example. On the left, no sonographic findings demonstrated. Sonographically unremarkable left axillary lymph node. IMPRESSION: See comment Focal areas of right ductal ectasia retroareolar and in the upper inner quadrant, with low-level echoes likely reflecting debris, as well as a few sub cm complicated cysts - suggest 6 month follow-up right sonography, unless otherwise clinically indicated. The patient reports bilateral nipple clear and bloody discharge with right mild ductal ectasia with likely internal debris. If the nipple discharge is spontaneous and clear and/or hemorrhagic, this could be further evaluated with breast MRI and/or surgical consultation as clinically warranted. Right axillary node with central low level echoes, correlate clinically, may reflect reactive node for example, with follow right axillary sonography suggested in 4-6 weeks, unless otherwise clinically indicated. ASSESSMENT: BI-RADS Category 3: Probably benign
[2022-03-21 15:21] LABS: Basophils # 0.1 K/mm3 (0-0.2); Basophils % 1.2 % (0.1-2.0); Eosinophils # 0.3 K/mm3 (0.0-0.4); Eosinophils % 3.3 % (0.1-12.0); Hematocrit 41.9 % (37.0-47.0); Hemoglobin 13.7 g/dL (12.2-16.2); Lymphocytes # 2.3 K/mm3 (0.7-4.5); Lymphocytes % 28.4 % (10-50); Mean Corpuscular HGB Conc 32.6 g/dL (31.8-35.4); Mean Corpuscular Hemoglobin 28.3 pg (27.0-31.2); Mean Corpuscular Volume 86.7 fl (81-99); Mean Platelet Volume 8.7 fl (7.4-10.4); Monocytes # 0.3 K/mm3 (0.1-1.0); Monocytes % 4.1 % (1.7-9.3); Neutrophils # 5.1 K/mm3 (1.8-7.8); Platelet Count 340 K/mm3 (142-424); Red Blood Count 4.83 M/mm3 (4.20-5.40); Red Cell Distribution Width 12.8 % (11.5-17.5); White Blood Count 8.1 K/mm3 (4.8-10.8)
[2022-03-21 16:20] LABS: Alanine Aminotransferase 22 U/L (12-78); Albumin Level 4.5 g/dl (3.5-5.0); Alkaline Phosphatase 69 U/L (38-126); Aspartate Amino Transferase 20 U/L (14-36); Bilirubin,Direct 0.2 mg/dl (0.0-0.4); Bilirubin,Indirect 0.1 mg/dL (0.0-0.9); Bilirubin,Total 0.3 mg/dl (0.2-1.3); Bilirubin,Unconjugated 0.1 mg/dL (0.0-1.1); Blood Urea Nitrogen 7 mg/dl (7-17); Calcium 9.2 mg/dl (8.4-10.2); Carbon Dioxide 24 mmol/L (22.0-30.0); Chloride 106 mmol/L (98-107); Chol/HDL Ratio 3.7 (1-3.5); Cholesterol 152 mg/dl (140-200); Estimated Glomerular Filt Rate 142 ml/min (>60); GFR (African American) 172 ML/MIN (>60); Glucose 185 mg/dl (74-100); HDL Cholesterol 41 mg/dl (40-60); Potassium 4.5 mmoL/L (3.5-5.1); Total Protein,Serum 7.2 g/dl (6.3-8.2); Triglycerides 226 mg/dl (30-150); VLDL Cholesterol 45 mg/dL (0-40)
[2022-03-21 16:25] LABS: Free T4 (Free Thyroxine) 1.24 ng/dl (0.78-2.19)
[2022-03-21 16:37] LABS: Direct LDL Cholesterol 86.47 mg/dL (100-129)
[2022-03-21 16:50] LABS: Thyroid Stimulating Hormone 1.03 uIU/mL (0.465-4.68)
[2022-03-21 17:17] LABS: Anion Gap 12.5 mEq/L (5-15); Sodium 138 mmol/L (136-145)
== END ==
PROVIDERS: Nurse Practitioner; PCP Nurse Practitioner Family; Visit Provider Nurse Practitioner Family
DX: R06.00 Dyspnea, unspecified (principal); R07.9 Chest pain, unspecified; R00.0 Tachycardia, unspecified; R42 Dizziness and giddiness; R60.0 Localized edema; R94.31 Abnormal electrocardiogram [ECG] [EKG]; N64.3 Galactorrhea not associated with childbirth
CPT/HCPCS: 36415; 76641; 77062; 77066; 80048; 80061; 80076; 83735; 84439; 84443; 85025; G0279

== ENCOUNTER → 2022-03-28 13:32 | Outpatient (CLI) | payer MEDICAID, SELFPAY ==
--- NOTE | 2022-03-28 13:33 | CA_ITS ---
APPROVED REPORT Exam: Exercise Treadmill Technologist: Dee Ahuja Ht: 5 ft 6 in Wt: 301 lbs BSA: 2.38 m2 HR: 99 bpm BP: 133/93 mmHg Indications: Shortness of Air Medical History Medications: Lisinopril,,,,, Propranolol,,,,, Metformin,,,,, Quetiapine,,,,, Stress Test Details Test: Gerald HR Resting HR: 95 bpm Max Heart Rate (APMHR): 187.336201 bpm Max HR Achieved: 163 bpm Target HR (85% APMHR): 158.910853 bpm % of APMHR: 87.17 Recovery HR: 103 bpm BP Resting BP: 133.0/93.0 mmHg Max BP: 180.0/94.0 mmHg Recovery BP: 143.0/88.0 mmHg ECG Resting ECG: Sinus rhythm Clinical Exercise duration: 06:31 min Highest Stage Achieved: Exercise capacity: 7.0 METs Stress ECG Conclusion Symptoms: Shortness of Air and stabbing chest pain with exercise. Dizziness with exercise. Arrhythmias/Ectopy: PVC noted Test Summary REST . . . . . . . Standing REST 16:15 0.0 0.0 95 . 133/ 93 . . Stage 1 01:00 10.0 1.7 115 . . . . Stage 1 02:00 10.0 1.7 127 . . . . Stage 1 03:00 10.0 1.7 128 . 128/ 78 . . Stage 2 01:00 12.0 2.5 136 . . . . Stage 2 02:00 12.0 2.5 144 . . . . Stage 2 03:00 12.0 2.5 151 . 160/ 90 . . Stage 3 00:31 14.0 3.4 161 . . . Stop exercise at 06:31 RECOVERY 01:00 0.0 0.0 147 . . . . RECOVERY 02:00 0.0 0.0 124 . 180/ 94 . . RECOVERY 03:00 0.0 0.0 109 . 180/ 94 . . RECOVERY 04:00 0.0 0.0 108 . 156/ 93 . . RECOVERY 05:00 0.0 0.0 106 . 156/ 93 . . RECOVERY 06:00 0.0 0.0 103 . 160/ 84 . . RECOVERY 07:00 0.0 0.0 103 . 160/ 84 . . RECOVERY 07:30 0.0 0.0 108 . 143/ 88 . . Electronically signed by : Jim Iraheta MD 03/28/2022 15:54:10
--- NOTE | 2022-03-28 13:33 | CA_ITS ---
APPROVED REPORT EXAM: Comprehensive 2D, Doppler, and color-flow Echocardiogram Flanging Roll Operator: JAYLENE Metcalf, RVS Ht: 5 ft 6 in Wt: 301lbs BSA: 2.38 BP: 143/88 mmHg Indications: SOB, CP, Obesity, HTN, DM, Palpitations, Edema Echo Enhancing Agent Comments: Technically difficult exam due to patient factors. 2D Dimensions Aortic Root 3.16 cm LA Volume 41.10 mL Left Atrium 2.63 cm LA Volume Index 16.80 mL/m2 (M/F) 16-34 LVOT 2.09 cm (M/F) 1.5-2.5 M-Mode Dimensions RVDd 3.24 cm (0.9-2.6) LA Diam 3.75 cm (1.9-4.0) LVDd 4.35 cm (3.5-5.7) Ao Diam 3.37 cm (2.0-3.7) LVDs 2.56 cm (3.5-5.7) IVSd 1.28 cm (0.6-1.1) PWd 1.19 cm (0.6-1.1) EF (Teich) 72.20% EPSs 0.43 cm FS 41.10% EDV (Teich) 85.40 mL TAPSE 2.35 (<1.7) ESV (Teich) 23.70 mL LV Diastology E Decel Time 197.00 (160-240 msec) E/A Ratio 1.32 MED E' 9.80 (< 7 cm/sec) MED A' 11.90 cm/s E'/MED E' Ratio 11.01 (>14) LAT E' 11.60 (<10 cm/sec) LAT A' 12.00 cm/s E/LAT E' Ratio 9.30 (>14) Aortic Valve LVOT Max 115.00 (70-110 cm/s) LVOT VTI 22.22 cm AoV Peak Buck. 147.00 (50-130 cm/s) AO Peak GR. 8.60 mmHg AO Mean GR. 4.40 (<5 mmHg) AO VTI 26.24 (18-25 cm) JAZMINE (VTI) 2.91 (2.5-4.5 cm2) Mitral Valve MV A Velocity 82.00 (40-130 cm/s) E/A Ratio 1.32 MV Decel. Time 197.00 (160-240 ms) MV PHT 57.00 ms Pulmonary Valve PV Peak Velocity 79.00 (50-150 cm/s) Tricuspid Valve TR P. Velocity 110.00 cm/s RAP Estimate 10.00 mmHg RVSP 14.80 mmHg Left Ventricle Left atrium normal size left ventricle is normal size, estimated ejection fraction of 55% with no regional wall motion abnormality, diastolic parameters are within normal range. Right Ventricle Right atrium and right ventricle are mildly enlarged with normal contractility. Aortic Valve Aortic valve is grossly normal there is no aortic stenosis aortic insufficiency. Mitral Valve Mitral valve is grossly normal, there is trace mitral regurgitation. Tricuspid Valve Tricuspid valve is grossly normal, there is trace tricuspid regurgitation, tricuspid regurgitation jet plus is inadequate for calculation of the right ventricular systolic pressure. Pulmonic Valve Pulmonic valve is poorly visualized. Great Vessels Aortic root is normal size. Inferior vena cava is poorly visualized. Pericardium No significant pericardial effusion noted. Conclusion 1. Normal left ventricular size, estimate ejection fraction 55% with no regional wall motion abnormality, diastolic parameters are within normal range. 2. Mildly enlarged right ventricle with normal contractility. 3. Trace mitral and tricuspid regurgitation. 4. No significant pericardial effusion noted. 5. Inferior vena cava is poorly visualized. Electronically signed by : Jim Iraheta MD 03/28/2022 16:21:10
== END ==
PROVIDERS: PCP Nurse Practitioner Family; Visit Provider Nurse Practitioner
DX: R06.00 Dyspnea, unspecified (principal); R07.9 Chest pain, unspecified; R00.0 Tachycardia, unspecified; R42 Dizziness and giddiness; R60.0 Localized edema; R94.31 Abnormal electrocardiogram [ECG] [EKG]
CPT/HCPCS: 93017; 93306

== ENCOUNTER 2022-04-28 07:23 | Day surgery (SDC) | payer MEDICAID, SELFPAY ==
[2022-04-26 10:20] VITALS: BMI 48.6
[2022-04-28] VITALS (9 sets, daily range): BP systolic 124–143; BP diastolic 71–92; PULSE 79–90; RESP 12–18; TEMP 36.3–36.8; O2SAT 94–98
--- NOTE | 2022-04-28 10:12 | P.PN_ITS ---
[facility] Disclaimer: The information contained in this section may have been updated after the patient was seen, as this information can be updated by other users. Medical History (Updated 04/28/22 @ 08:19 by Kerri Jones RN) Abnormal electrocardiogram [ECG] [EKG] Chest pain Dizziness DM2 (diabetes mellitus, type 2) Dyspnea Edema of both lower extremities Esophageal cancer HTN (hypertension) Palpitations Sinus tachycardia Surgical History History of appendectomy History of section History of colonoscopy History of hysterectomy History of laparoscopic cholecystectomy History of tonsillectomy Hx of dilation and curettage Hx of umbilical hernia repair Family History Other Family history of cancer 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 (Updated 04/28/22 @ 08:19 by Kerri Jones RN) Smoking Status: Never smoker second hand exposure: No alcohol intake: never substance use type: denies use, former substance user and crack/cocaine current occupational status: employed Travel in the last 8 weeks: None household members: children housing: house lives independently: Yes marital status: number of children: 2 education level: high school service: No current occupation: [employer] current occupational exposures/hazards: No caffeine: Yes special sofia needs: No agree to transfusion: No do you feel safe at home: Yes victim of physical abuse: No victim of emotional abuse: No victim of sexual abuse: No would you like helpful sources: No [facility] Anesthesia Checklist Patient Identification Patient Identification: Verbal (Name & ) Structural Data Admitted From: Home Planned Operative Procedure/s: excision neoplasm r breast Consent for Planned Operative Procedure(s) Verified: Yes NPO Status Verified Time NPO: 00:00 Additional verifications Anesthesia Reactions: No Hx Blood Transfusions: No Blood Transfusion Reaction: No Airway Assessment C-Spine Mobility Assessed: Yes TMJ Mobility Assessed: Yes Dentition: Good Dentition Neurological Assessment Level of Consciousness: Awake, Alert and Appropriate Anesthesia Plan Anesthesia Risk discussed: Yes Anesthesia Plan: Verified ASA Class: II Anesthesia Type: General
--- NOTE | 2022-04-28 11:10 | EXP.OP.NOTE ---
Date of procedure: 04/28/22 Pre-op Diagnosis:: Right bloody nipple discharge Post-op Diagnosis:: Same Procedure performed:: Right subareolar ductal excision Surgeon:: David Chacko MD AUTOMOBILE CONTRACT CLERK:: Anibal Nam Anesthesia: LMA Estimated blood loss (mL): 15 Operative findings:: Subareolar excision completed proximal to fascial margin Operative note:: After informed consent was obtained the patient was taken to the operating room and placed in the supine position. General anesthesia with laryngeal mask airway was achieved. Her right breast was prepped and draped in a sterile fashion. After infiltration local anesthetic a curvilinear incision was made along the inferior areolar margin. The areola was carefully elevated as a tissue flap was created with electrocautery. Electrocautery was then utilized to transect the entire subareolar tissue to a level just proximal to the fascial margin. The lesion was excised in toto and passed off for pathologic evaluation after being marked for margin. Non-dyed suture was utilized to jasvir the superficial and deep margins (short superficial/long deep). Dyed suture was utilized to jasvir the superior and lateral margins (short superior/long lateral). Electrocautery was utilized to achieve hemostasis. Metallic clips were placed along the wound base and margin. Thinning of tissue along the inferior skin edge created lack of space for deep subcutaneous sutures. Therefore, skin was closed with interrupted 4-0 Monocryl. Dressings were applied and the patient was transferred to recovery in stable condition. Condition: stable Disposition: PACU Specimens:: Right subareolar ductal excision Complications:: No immediate
--- NOTE | 2022-04-28 11:17 | P.PNANES_ITS ---
[facility] Anesthesia Record Part I Anesthesia Record I Intake, IV Amount: 1,500 Estimated blood loss (mL): 25 Urine output (mL): 0 Blood Pressure: 132/92 SaO2: 94 Pulse Rate: 84 Respiratory Rate: 12 Temperature: 98 F Patient is:: Awake and Stable Stable to PACU at:: 11:15
[2022-04-28 18:23] LABS: POC Glucose,Bedside 190 (70-110)
--- NOTE | 2022-04-29 16:05 | P.PNANES_ITS ---
[facility] Anesthesia Record Part II Anesthesia Record Part II Discharge Time: 11:45 Destination: Surgical Day Care (OP Surgery) PACU nurse assessment reviewed?: Yes Patient Condition:: Good Anesthesia Complications:: None Swallowing reflex intact?: Yes Cyanosis?: No Blood Pressure: 133/71 Pulse Rate: 84 Temperature: 98.2 F Mental Status: Alert & Oriented Pain level:: 0 Nausea and/or vomitting:: None Intake, IV Amount: 0
[2022-04-29 16:06] VITALS: BP 133/71; PULSE 84; TEMP 36.8
== END 2022-04-28 12:16 | disposition home or self-care (01) ==
PROVIDERS: PCP Nurse Practitioner Family; Visit Provider Surgery
PROC: (CPT 19120; principal; 2022-04-28 09:30)
DX: N64.52 Nipple discharge (principal); N60.81 Other benign mammary dysplasias of right breast; N60.41 Mammary duct ectasia of right breast; E11.9 Type 2 diabetes mellitus without complications; Z79.899 Other long term (current) drug therapy
CPT/HCPCS: 19120; 82962; 96374; J2405

== ENCOUNTER 2022-05-01 20:29 | Emergency (ER) | payer MEDICAID, SELFPAY ==
[2022-05-01 20:38] VITALS: BP 165/100; PULSE 101; O2SAT 98
[2022-05-01 20:43] VITALS: BP 165/100; PULSE 95; RESP 18; TEMP 36.6; O2SAT 98; BMI 46.6
[2022-05-01 20:45] VITALS: BP 140/84; PULSE 103; O2SAT 96
[2022-05-01 20:49] VITALS: BP 140/84; PULSE 74; RESP 18; O2SAT 100
--- NOTE | 2022-05-01 20:50 | PC.NURSE ---
Rounded on patient, No needs voiced at this time.
[2022-05-01 21:11] LABS: Basophils # 0.1 K/mm3 (0-0.2); Basophils % 1.4 % (0.1-2.0); Eosinophils # 0.5 K/mm3 (0.0-0.4); Eosinophils % 6.1 % (0.1-12.0); Hematocrit 39.4 % (37.0-47.0); Hemoglobin 13.5 g/dL (12.2-16.2); Lymphocytes # 2.7 K/mm3 (0.7-4.5); Lymphocytes % 37.6 % (10-50); Mean Corpuscular HGB Conc 34.3 g/dL (31.8-35.4); Mean Corpuscular Hemoglobin 28.9 pg (27.0-31.2); Mean Corpuscular Volume 84.1 fl (81-99); Mean Platelet Volume 7.8 fl (7.4-10.4); Monocytes # 0.4 K/mm3 (0.1-1.0); Neutrophils # 3.6 K/mm3 (1.8-7.8); Neutrophils % 48.9 % (37.0-80.0); Platelet Count 315 K/mm3 (142-424); Red Blood Count 4.69 M/mm3 (4.20-5.40); Red Cell Distribution Width 12.9 % (11.5-17.5); White Blood Count 7.3 K/mm3 (4.8-10.8)
[2022-05-01 21:14] LABS: Chloride 106 mmol/L (98-107); Potassium 3.8 mmoL/L (3.5-5.1); Sodium 137 mmol/L (136-145)
[2022-05-01 21:16] LABS: Alanine Aminotransferase 32 U/L (12-78); Aspartate Amino Transferase 24 U/L (14-36); Blood Urea Nitrogen 11 mg/dl (7-17); Creatinine Clearance Estimated 125 mL/min (50-200); Estimated Glomerular Filt Rate 115 ml/min (>60); GFR (African American) 139 ML/MIN (>60)
[2022-05-01 21:17] LABS: Albumin Level 4.2 g/dl (3.5-5.0); Albumin/Globulin Ratio 1.6 (1.1-1.8); Alkaline Phosphatase 64 U/L (38-126); Anion Gap 10.8 mEq/L (5-15); Bilirubin,Total 0.2 mg/dl (0.2-1.3); Calcium 8.8 mg/dl (8.4-10.2); Carbon Dioxide 24 mmol/L (22.0-30.0); Globulin 2.7 g/dL (1.3-3.2); Glucose 179 mg/dl (74-100); Total Protein,Serum 6.9 g/dl (6.3-8.2)
--- NOTE | 2022-05-01 22:08 | PC.NURSE ---
and RN in room talking with patient at this time.
[2022-05-01 22:11] VITALS: BP 158/75; PULSE 82; RESP 17; TEMP 36.8; O2SAT 97
--- NOTE | 2022-05-01 22:11 | HMH.EDWNDL ---
Discharge Plan Disposition Patient Disposition: Home, Self-Care Chief Complaint: Wound/Laceration Prescriptions Prescriptions: No Action lamotrigine 25 mg tablet 50 mg PO DAILY metformin 1,000 mg tablet 1,000 mg PO DAILY hydrocodone-acetaminophen 5-325 mg tablet 1 tab PO Q6H PRN (Reason: post-op pain) Qty: 17 0RF Referrals Follow up/Referrals: Joyce Shaw [Primary Care Provider] - See instructions Clinical Impressions Clinical Impression: Encounter for wound re-check, Post surgical complication Instructions Patient Instructions: DI for Post-Surgical Bleeding Discharge ED Provider: Katie (ED)Thang Wound/Laceration HPI General Chief Complaint: Wound/Laceration Stated Complaint: Surg 0309 breast incissio bleeding,pain nausa diz Time Seen by Provider: 05/01/22 22:12 Mode of Arrival: Ambulatory Source of Information: Patient and Medical Record Limitations: No Limitations Description of Symptoms (Recalled from ER Triage Doc. by RN): Patient arrives via private vehicle. States that on she had a Right sided subareolar ductal excision done by . Has a surgical incision around the lower half of her right nipple held together with steristrips. Pt states she was told to shower yesterday, however ,she waited to shower until today. States that when she got in the shower she noticed that her steri strips were loose on part of the incision and the steristrips fell off during her shower. Denies pulling them off. States that whenever she got out of the shower she noticed that the incision had opened and she noticed bleeding. C/O nausea today and dizziness since the Surgery. History of Present Illness HPI narrative: pt with recent rt breat surg and had some bleeding and open incision at home - no fever or other c/o Onset (ago): day(s) Location: other (rt breast ) Place: home Context: other (recent breast surg ) Related Data Home Medications Medication Instructions Recorded Confirmed lamotrigine 25 mg tablet 50 mg PO DAILY mood 04/26/22 04/28/22 metformin 1,000 mg tablet 1,000 mg PO DAILY Diabetes 04/26/22 04/28/22 Previous Rx's Medication Instructions Recorded hydrocodone 5 mg-acetaminophen 325 1 tab PO Q6H PRN post-op pain #17 04/28/22 mg tablet tabs Allergies Allergy/AdvReac Type Severity Reaction Status Date / Time amoxicillin Allergy Verified 04/28/22 08:07 silver Allergy Rash Verified 04/28/22 08:07 [From Tegaderm AG Mesh] venom-honey bee Allergy Unknown Verified 04/28/22 08:07 allergy reaction venom-wasp protein Allergy Unknown Verified 04/28/22 08:07 allergy reaction PFSH PFSH Disclaimer: The information contained in this section may have been updated after the patient was seen, as this information can be updated by other users. Medical History (Updated 05/01/22 @ 22:21 by Thang Wilson (MIGUEL)MD) Abnormal electrocardiogram [ECG] [EKG] Chest pain Dizziness DM2 (diabetes mellitus, type 2) Dyspnea Edema of both lower extremities Esophageal cancer HTN (hypertension) Palpitations Sinus tachycardia Surgical History History of appendectomy History of section History of colonoscopy History of hysterectomy History of laparoscopic cholecystectomy History of tonsillectomy Hx of dilation and curettage Hx of umbilical hernia repair Family History Other Family history of cancer 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 (Updated 04/28/22 @ 08:19 by Kerri Jones, RADHA) Smoking Status: Never smoker second hand exposure: No alcohol intake: never substance use type: denies use, former substance user and crack/cocaine current occupational status: employed Travel in the last 8 weeks: None household members: children housing: house lives independently: Yes marital status: number of children: 2 educa
== END 2022-05-01 22:26 | disposition home or self-care (01) ==
PROVIDERS: Emergency Provider Emergency Medicine; PCP Nurse Practitioner Family
DX: S01.81XA Laceration without foreign body of other part of head, initial encounter (principal); Z48.00 Encounter for change or removal of nonsurgical wound dressing; L76.22 Postprocedural hemorrhage of skin and subcutaneous tissue following other procedure
CPT/HCPCS: 80053; 85025; 96361; 96374; 96375; 99284; 99285; J0131; J2405

== ENCOUNTER 2022-09-01 06:55 | Day surgery (SDC) | payer MEDICAID, SELFPAY ==
[2022-09-01] VITALS (8 sets, daily range): BP systolic 112–149; BP diastolic 71–89; PULSE 92–104; RESP 15–18; TEMP 36.2–43; O2SAT 97–100; BMI 47.7
[2022-09-01 07:46] LABS: POC Glucose,Bedside 190 (70-110)
[2022-09-01 07:51] LABS: Basophils % 0.5 % (0.1-2.0); Eosinophils # 0.5 K/mm3 (0.0-0.4); Eosinophils % 7.5 % (0.1-12.0); Hemoglobin 12.6 g/dL (12.2-16.2); Lymphocytes # 2.3 K/mm3 (0.7-4.5); Lymphocytes % 35.8 % (10-50); Mean Corpuscular HGB Conc 33.1 g/dL (31.8-35.4); Mean Corpuscular Hemoglobin 28.8 pg (27.0-31.2); Mean Platelet Volume 7.6 fl (7.4-10.4); Monocytes # 0.3 K/mm3 (0.1-1.0); Monocytes % 5.1 % (1.7-9.3); Neutrophils # 3.3 K/mm3 (1.8-7.8); Neutrophils % 51.1 % (37.0-80.0); Platelet Count 297 K/mm3 (142-424); Red Blood Count 4.37 M/mm3 (4.20-5.40); Red Cell Distribution Width 13.1 % (11.5-17.5); White Blood Count 6.4 K/mm3 (4.8-10.8)
[2022-09-01 08:03] LABS: Alanine Aminotransferase 33 U/L (12-78); Albumin Level 4.2 g/dl (3.5-5.0); Albumin/Globulin Ratio 1.4 (1.1-1.8); Alkaline Phosphatase 51 U/L (38-126); Anion Gap 12.2 mEq/L (5-15); Aspartate Amino Transferase 31 U/L (14-36); Bilirubin,Total 0.3 mg/dl (0.2-1.3); Blood Urea Nitrogen 10 mg/dl (7-17); Calcium 8.8 mg/dl (8.4-10.2); Carbon Dioxide 19 mmol/L (22.0-30.0); Chloride 111 mmol/L (98-107); Creatinine Clearance Estimated 150 mL/min (50-200); Estimated Glomerular Filt Rate 142 ml/min (>60); GFR (African American) 172 ML/MIN (>60); Globulin 2.9 g/dL (1.3-3.2); Glucose 180 mg/dl (74-100); Potassium 4.2 mmoL/L (3.5-5.1); Sodium 138 mmol/L (136-145); Total Protein,Serum 7.1 g/dl (6.3-8.2)
--- NOTE | 2022-09-01 08:11 | P.PN_ITS ---
[facility] Disclaimer: The information contained in this section may have been updated after the patient was seen, as this information can be updated by other users. Medical History Abnormal electrocardiogram [ECG] [EKG] Chest pain Dizziness DM2 (diabetes mellitus, type 2) Dyspnea Edema of both lower extremities Esophageal cancer HTN (hypertension) Palpitations Sinus tachycardia Surgical History History of appendectomy History of section x 2 History of colonoscopy History of hysterectomy History of laparoscopic cholecystectomy History of tonsillectomy Hx of dilation and curettage x2 Hx of umbilical hernia repair Family History Other Family history of cancer 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 Smoking Status: Never smoker second hand exposure: No alcohol intake: never substance use type: denies use, former substance user and crack/cocaine current occupational status: employed Travel in the last 8 weeks: None household members: children housing: house lives independently: Yes marital status: number of children: 2 education level: high school service: No current occupation: [employer] current occupational exposures/hazards: No caffeine: Yes special sofia needs: No agree to transfusion: No do you feel safe at home: Yes victim of physical abuse: No victim of emotional abuse: No victim of sexual abuse: No would you like helpful sources: No [facility] Anesthesia Checklist Patient Identification Patient Identification: Arm Band Structural Data Admitted From: Home Planned Operative Procedure/s: Left Subareolar Ductal Excision Consent for Planned Operative Procedure(s) Verified: Yes Verified Documents: Surgical Consent and History and Physical NPO Status Verified Time NPO: 00:00 Additional verifications Anesthesia Reactions: No Hx Blood Transfusions: No Blood Transfusion Reaction: No Airway Assessment C-Spine Mobility Assessed: Yes TMJ Mobility Assessed: Yes Dentition: Good Dentition Neurological Assessment Level of Consciousness: Awake and Alert Anesthesia Plan Anesthesia Risk discussed: Yes Anesthesia Plan: Verified ASA Class: III Anesthesia Type: General
--- NOTE | 2022-09-01 10:28 | P.OP_ITS ---
Date of procedure: 09/01/22 Pre-op Diagnosis:: Left bloody nipple discharge Post-op Diagnosis:: Same Procedure performed:: Left subareolar ductal excision Surgeon:: David Chacko MD BUTTERMILK DRIER OPERATOR:: Adrianne Barnes Anesthesia: LMA Estimated blood loss (mL): 25 Operative findings:: Subareolar tissue excised to a level approximately 2 cm proximal to fascial margin Operative note:: After informed consent was obtained the patient was taken to the operating room and placed in the supine position. General anesthesia with laryngeal mask airway was achieved. Her left breast was prepped and draped in a sterile fashion. After infiltration local anesthetic a curvilinear incision was made along the inferior areolar margin. The areola was carefully elevated as a tissue flap was created with electrocautery. Electrocautery was then utilized to transect the entire subareolar tissue to a level approximately 2 cm proximal to the fascial margin The lesion was excised in toto and passed off for pathologic evaluation after being marked for margin. Dyed suture was utilized to jasvir the superficial and deep margins (short superficial/long deep). Non- dyed suture was utilized to jasvir the superior and lateral margins (short super ior/long lateral). An extended superior margin was then excised secondary to tissue thickening. This was completed with electrocautery in a manner as done for the primary lesion. Electrocautery was utilized to achieve hemostasis. Metallic clips were placed along the wound base and margin. Thinning of tissue along the inferior skin edge created lack of space for deep subcutaneous sutures. Therefore, skin was closed with interrupted 4-0 Monocryl. Dressings were applied and the patient was transferred to recovery in stable condition. Condition: stable Disposition: PACU Specimens:: Left subareolar ductal excision Extended superior margin Complications:: No immediate
--- NOTE | 2022-09-01 10:36 | EXP.ANES.I ---
[facility] Anesthesia Record Part I Anesthesia Record I Intake, IV Amount: 600 Estimated blood loss (mL): 25 Urine output (mL): 0 Blood Pressure: 130/74 SaO2: 98 Pulse Rate: 104 Respiratory Rate: 15 Temperature: 97.3 F Patient is:: Awake Stable to PACU at:: 10:37
--- NOTE | 2022-09-02 14:29 | P.PNANES_ITS ---
[facility] Anesthesia Record Part II Anesthesia Record Part II Discharge Time: 10:57 Destination: Surgical Day Care (OP Surgery) PACU nurse assessment reviewed?: Yes Patient Condition:: Good Anesthesia Complications:: None Swallowing reflex intact?: Yes Cyanosis?: No Blood Pressure: 148/72 Pulse Rate: 98 Temperature: 98.2 F Mental Status: Alert & Oriented Pain level:: 3 Nausea and/or vomitting:: None Intake, IV Amount: 0
[2022-09-02 14:30] VITALS: BP 148/72; PULSE 98; TEMP 36.8
== END 2022-09-01 11:25 | disposition home or self-care (01) ==
PROVIDERS: PCP Nurse Practitioner Family; Visit Provider Surgery
PROC: (CPT 19120; principal; 2022-09-01 08:45)
DX: N61.0 Mastitis without abscess (principal); N64.59 Other signs and symptoms in breast; N60.12 Diffuse cystic mastopathy of left breast; N62 Hypertrophy of breast; N60.82 Other benign mammary dysplasias of left breast
CPT/HCPCS: 19120; 80053; 82962; 85025; 96374

== ENCOUNTER 2022-09-03 08:19 | Day surgery (SDC) | payer MEDICAID, SELFPAY ==
[2022-09-03] VITALS (11 sets, daily range): BP systolic 123–149; BP diastolic 68–96; PULSE 82–97; RESP 16–20; TEMP 36.4–36.5; O2SAT 96–99; BMI 46.6
--- NOTE | 2022-09-03 08:32 | PC.NURSE ---
ER MD Blood at
--- NOTE | 2022-09-03 08:41 | HMH.EDGENADL ---
Discharge Plan Disposition Patient Disposition: Home, Self-Care Condition: Fair Prescriptions Prescriptions: New ondansetron 4 mg tablet,disintegrating 4 mg PO Q8H PRN (Reason: nausea and vomiting) 4 Days Qty: 16 0RF Rx Instructions: Do not combine with promethazine or other nausea medications sulfamethoxazole-trimethoprim [Bactrim DS] 800-160 mg tablet 1 tab PO BID 10 Days Qty: 20 0RF No Action lamotrigine 25 mg tablet 200 mg PO DAILY metformin 1,000 mg tablet 1,000 mg PO BID lisinopril 20 mg tablet 20 mg PO DAILY Patient Comments: TAKE 1 TABLET BY MOUTH ONCE DAILY promethazine 25 mg Tablet 25 mg PO Q6H PRN (Reason: Nausea) propranolol 20 mg tablet 20 mg PO BID Patient Comments: TAKE 1 TABLET BY MOUTH TWICE DAILY prazosin 2 mg Capsule 2 mg PO HS Vraylar 1.5 mg Capsule 1.5 mg PO DAILY propranolol 10 mg Tablet 10 mg PO BID topiramate [Topamax] 50 mg Tablet 50 mg PO HS hydrochlorothiazide 12.5 mg Tablet 12.5 mg PO DAILY hydrocodone-acetaminophen 5-325 mg tablet 1 tab PO Q6H PRN (Reason: pain) Qty: 17 0RF Referrals Follow up/Referrals: Joyce Shaw [Primary Care Provider] - See instructions Activity Restrictions/Add. Instructions Additional Instructions/Restrictions: At this time is felt you are safe to be discharged home. If new or worsening symptoms please do not hesitate to return to the emergency department. Please take your medication as prescribed. Please follow-up with your surgeon within 1 week. Clinical Impressions Clinical Impression: Post-op pain, Food impaction of esophagus Discharge ED Provider: Samuel Blood General Adult HPI General Chief complaint: Skin/Abscess/Foreign Body Stated complaint: post op bleeding breast Time Seen by Provider: 09/03/22 08:41 History of Present Illness HPI narrative: Patient is a 31-year-old female with past medical history of kqs-kqyqlwv-iowtyxsvt diabetes, hypertension, recent left bloody nipple discharge status post left breast excision on morning who presents emergency department for evaluation of pain and swelling. History is obtained by patient at bedside and per chart review. Patient has had decreased p.o. intake since procedure, has been unable to tolerate her pain regimen with associated nonbloody vomiting. She has moderate pain on her lateral left breast. She has had worsening pain, discharge from her incision line over the last 24 hours which is clearish pink. Denies other acute complaints at this time. Related Data Home Medications Medication Instructions Recorded Confirmed lamotrigine 25 mg tablet 200 mg PO DAILY mood 04/26/22 09/01/22 metformin 1,000 mg tablet 1,000 mg PO BID Diabetes 04/26/22 09/01/22 cariprazine 1.5 mg capsule 1.5 mg PO DAILY mood 07/19/22 09/01/22 (Vraylar) lisinopril 20 mg tablet 20 mg PO DAILY bp 07/19/22 09/01/22 prazosin 2 mg capsule 2 mg PO HS . 07/19/22 09/01/22 promethazine 25 mg tablet 25 mg PO Q6H PRN Nausea 07/19/22 09/01/22 propranolol 20 mg tablet 20 mg PO BID HR 07/19/22 09/01/22 hydrochlorothiazide 12.5 mg tablet 12.5 mg PO DAILY htn 09/01/22 09/01/22 propranolol 10 mg tablet 10 mg PO BID htn 09/01/22 09/01/22 topiramate 50 mg tablet (Topamax) 50 mg PO HS nightmares 09/01/22 09/01/22 Previous Rx's Medication Instructions Recorded hydrocodone 5 mg-acetaminophen 325 1 tab PO Q6H PRN pain #17 tabs 09/01/22 mg tablet ondansetron 4 mg disintegrating 4 mg PO Q8H PRN nausea and 09/03/22 tablet vomiting 4 days #16 tabs sulfamethoxazole 800 1 tab PO BID 10 days #20 tabs 09/03/22 mg-trimethoprim 160 mg tablet (Bactrim DS) Allergies Allergy/AdvReac Type Severity Reaction Status Date / Time amoxicillin Allergy Verified 09/01/22 07:29 silver Allergy Rash Verified 09/01/22 07:29 [From Tegaderm AG Mesh] venom-honey bee Allergy Unknown Verified 09/01/22 07:29 allergy react
--- NOTE | 2022-09-03 08:42 | PC.NURSE ---
ER MD on phone with general SX
--- NOTE | 2022-09-03 08:45 | CT_ITS ---
PROCEDURE INFORMATION: Exam: CT Chest With Contrast; Diagnostic Exam date and time: 09/03/2022 8:57 AM Age: 31 years old Clinical indication: Pain; Prior surgery; Surgery date: Post-operative (0-2 days); Surgery type: Lt breast surgery; Additional info: Recent L breast surgery/concern for infection TECHNIQUE: Imaging protocol: Diagnostic computed tomography of the chest with contrast. Radiation optimization: All CT scans at this facility use at least one of these dose optimization techniques: automated exposure control; mA and/or kV adjustment per patient size (includes targeted exams where dose is matched to clinical indication); or iterative reconstruction. Contrast material: ISOVUE; Contrast volume: 75 ml; Contrast route: IV; REPORTING DATA: Count of CT and Cardiac NM exams in prior 12 months: This patient has received 0 known CTs and 0 known cardiac nuclear medicine studies in the 12 months prior to the current study. COMPARISON: CT SOFT TISSUE NECK W CON 03/30/2020 9:04 PM FINDINGS: Lungs: Unremarkable. No consolidation. No masses. Pleural spaces: Unremarkable. No pneumothorax. No pleural effusion. Heart: Unremarkable. No cardiomegaly. No pericardial effusion. Mediastinal space: There is retained or impacted food bolus within the midthoracic esophagus which is mildly dilated with an air-fluid level above. Lymph nodes: There is left axillary lymphadenopathy measuring up to 17 mm. Vasculature: Unremarkable. No aortic aneurysm. Bones/joints: Unremarkable. No acute fracture. Soft tissues: Postsurgical change is noted in the left breast with air and surgical clips present. IMPRESSION: Postsurgical change in the left breast. Retained or impacted food bolus within the midthoracic esophagus. Please correlate clinically endoscopically. Left axillary lymphadenopathy.
[2022-09-03 09:07] LABS: Basophils # 0.1 K/mm3 (0-0.2); Basophils % 0.9 % (0.1-2.0); Eosinophils # 0.6 K/mm3 (0.0-0.4); Eosinophils % 7.5 % (0.1-12.0); Hematocrit 38.9 % (37.0-47.0); Hemoglobin 12.8 g/dL (12.2-16.2); Lymphocytes # 2.8 K/mm3 (0.7-4.5); Lymphocytes % 37.8 % (10-50); Mean Corpuscular HGB Conc 32.9 g/dL (31.8-35.4); Mean Corpuscular Hemoglobin 28.4 pg (27.0-31.2); Mean Corpuscular Volume 86.3 fl (81-99); Mean Platelet Volume 7.6 fl (7.4-10.4); Monocytes # 0.4 K/mm3 (0.1-1.0); Monocytes % 5.5 % (1.7-9.3); Neutrophils # 3.6 K/mm3 (1.8-7.8); Neutrophils % 48.3 % (37.0-80.0); Platelet Count 306 K/mm3 (142-424); Red Blood Count 4.51 M/mm3 (4.20-5.40); Red Cell Distribution Width 13.3 % (11.5-17.5); White Blood Count 7.5 K/mm3 (4.8-10.8)
[2022-09-03 09:10] LABS: Chloride 108 mmol/L (98-107); Sodium 141 mmol/L (136-145)
[2022-09-03 09:11] LABS: Potassium 3.6 mmoL/L (3.5-5.1)
[2022-09-03 09:13] LABS: Alanine Aminotransferase 32 U/L (12-78); Alkaline Phosphatase 57 U/L (38-126); Aspartate Amino Transferase 26 U/L (14-36); Bilirubin,Total 0.4 mg/dl (0.2-1.3); Blood Urea Nitrogen 9 mg/dl (7-17); Creatinine Clearance Estimated 125 mL/min (50-200); Estimated Glomerular Filt Rate 115 ml/min (>60); GFR (African American) 139 ML/MIN (>60)
[2022-09-03 09:14] LABS: Albumin Level 4.2 g/dl (3.5-5.0); Albumin/Globulin Ratio 1.4 (1.1-1.8); Anion Gap 13.6 mEq/L (5-15); Calcium 8.7 mg/dl (8.4-10.2); Carbon Dioxide 23 mmol/L (22.0-30.0); Globulin 2.9 g/dL (1.3-3.2); Glucose 162 mg/dl (74-100); Total Protein,Serum 7.1 g/dl (6.3-8.2)
--- NOTE | 2022-09-03 09:17 | PC.NURSE ---
lab called for draw of second set of cultures
[2022-09-03 09:20] LABS: C-Reactive Protein 1.2 mg/L (0-4)
--- NOTE | 2022-09-03 09:54 | PC.NURSE ---
HARJIT UNDERWOOD speaking with Adrienne at this time
--- NOTE | 2022-09-03 09:57 | PC.NURSE ---
at the bedside to speak with pt
--- NOTE | 2022-09-03 10:43 | PC.NURSE ---
lab at the bedside for blood draw
--- NOTE | 2022-09-03 11:34 | PC.NURSE ---
pt failed PO challenge. speaking to surgeon
--- NOTE | 2022-09-03 11:44 | PC.NURSE ---
patient assisted to bathroom, personal belongings placed in a bag. patient aware that she is going for a scope
--- NOTE | 2022-09-03 12:18 | PC.NURSE ---
1136 - notified by Dr Flores that she would be taking the patient for an EGD for foreign body removal at 1pm and to call in the OR team 1141 - charger operator notified to page the surgical team 1145 - Yojana and Nova returned call and notified of Dr Flores's plan 1154 - spoke with Anibal from anesthesia and updated him on Dr Flores's plan
--- NOTE | 2022-09-03 12:27 | PC.NURSE ---
pt moved to a bed that has heart monitor
--- NOTE | 2022-09-03 12:47 | ECG_ITS ---
APPROVED REPORT Exam: Resting ECG HR:89 bpm ECG Measurements Heart Rate 89 AXES WV 151 P 55 QRSd 100 QRS 65 QT 361 T 4 QTc 408 Conclusion SINUS RHYTHM NONSPECIFIC T-WAVE ABNORMALITY BORDERLINE ECG UNCONFIRMED REPORT Electronically signed by : Charli Moe MD 09/05/2022 07:17:48
--- NOTE | 2022-09-03 13:18 | EXP.SURG.CON ---
History of Present Illness *Admission Date: 09/03/22 *Reason for visit:: Food Impaction *History of present illness: Ms. Ivon Dowd is a 31-year-old female with a history of hypertension and diabetes who presents with 4 days of nausea and vomiting and oral intolerance. Initially was called this morning by the ER regarding complaint of drainage and pain from breast incision after 09/01/2022 left subareolar mass resection by Dr. Chacko. Labs in the ER were normal, and because she was very tender and it was the weekend so ultrasound was not readily available, I chose CT as the diagnostic modality to rule out underlying fluid collection or abscess. She had also complained of 72 hours of vomiting and intolerance of oral intake. The CT showed expected post-operative changes of L subareolar resection with some inflammation vs. cellulitis. it also showed an incidental food bolus in the mid-esophagus with proximal esophageal fluid. She reports she had a pork chop 4 days ago, and has been able to tolerate very little oral intake since. The ER attempted IV glucagon to relax smooth muscle but bolus did not pass, and she continued to retch. She reports her gastroenterology, Dr. Mark Mai in [place], has had to do several EGDs for food impaction with eosphgeal dilation in the past. [facility] Disclaimer: The information contained in this section may have been updated after the patient was seen, as this information can be updated by other users. Medical History Abnormal electrocardiogram [ECG] [EKG] Chest pain Dizziness DM2 (diabetes mellitus, type 2) Dyspnea Edema of both lower extremities Esophageal cancer HTN (hypertension) Palpitations Sinus tachycardia Surgical History History of appendectomy History of section History of colonoscopy History of hysterectomy History of laparoscopic cholecystectomy History of tonsillectomy Hx of dilation and curettage Hx of umbilical hernia repair Family History Other Family history of cancer 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 Smoking Status: Never smoker second hand exposure: No alcohol intake: never substance use type: denies use, former substance user and crack/cocaine current occupational status: employed Travel in the last 8 weeks: None household members: children housing: house lives independently: Yes marital status: number of children: 2 education level: high school service: No current occupation: [employer] current occupational exposures/hazards: No caffeine: Yes special sofia needs: No agree to transfusion: No do you feel safe at home: Yes victim of physical abuse: No victim of emotional abuse: No victim of sexual abuse: No would you like helpful sources: No Review of Systems Review of Systems Review of systems:: pertinent systems reviewed and negative unless documented below ENT Ears, Nose, Mouth, and Throat: Reports dysphagia *Gastrointestinal Gastrointestinal: Reports dysphagia and Reports vomiting Integumentary/Breasts Skin/Breast: Reports breast pain Comments: serous drainage from wound Meds Home Medications and Allergies Home Medications Medication Instructions Recorded Confirmed Type lamotrigine 25 mg tablet 200 mg PO DAILY mood 04/26/22 09/01/22 History metformin 1,000 mg tablet 1,000 mg PO BID Diabetes 04/26/22 09/01/22 History cariprazine 1.5 mg capsule 1.5 mg PO DAILY mood 07/19/22 09/01/22 History (Vraylar) lisinopril 20 mg tablet 20 mg PO DAILY bp 07/19/22 09/01/22 History prazosin 2 mg capsule 2 mg PO HS . 07/19/22 09/01/22 History promethazine 25 mg tablet 25 mg PO Q6H PRN Nausea 07/19/22 09/01/22 History propranolol 20 mg tablet 20 mg PO BID HR 07/19/22 09/01/22 History hydrochlorothiazide 12.5 mg
--- NOTE | 2022-09-03 14:00 | EXP.ANES.CKL ---
[facility] Disclaimer: The information contained in this section may have been updated after the patient was seen, as this information can be updated by other users. Medical History Abnormal electrocardiogram [ECG] [EKG] Chest pain Dizziness DM2 (diabetes mellitus, type 2) Dyspnea Edema of both lower extremities Esophageal cancer HTN (hypertension) Palpitations Sinus tachycardia Surgical History History of appendectomy History of section x 2 History of colonoscopy History of hysterectomy History of laparoscopic cholecystectomy History of tonsillectomy Hx of dilation and curettage x2 Hx of umbilical hernia repair Family History Other Family history of cancer 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 Smoking Status: Never smoker second hand exposure: No alcohol intake: never substance use type: denies use, former substance user and crack/cocaine current occupational status: employed Travel in the last 8 weeks: None household members: children housing: house lives independently: Yes marital status: number of children: 2 education level: high school service: No current occupation: [employer] current occupational exposures/hazards: No caffeine: Yes special sofia needs: No agree to transfusion: No do you feel safe at home: Yes victim of physical abuse: No victim of emotional abuse: No victim of sexual abuse: No would you like helpful sources: No [facility] Anesthesia Checklist Patient Identification Patient Identification: Verbal (Name & ) Structural Data Admitted From: Emergency Dept Planned Operative Procedure/s: egd Consent for Planned Operative Procedure(s) Verified: Yes Additional verifications Anesthesia Reactions: No Hx Blood Transfusions: No Blood Transfusion Reaction: No Airway Assessment C-Spine Mobility Assessed: Yes TMJ Mobility Assessed: Yes Dentition: Good Dentition Neurological Assessment Level of Consciousness: Awake, Alert and Appropriate Anesthesia Plan Anesthesia Risk discussed: Yes Anesthesia Plan: Verified ASA Class: III Anesthesia Type: MAC
--- NOTE | 2022-09-03 14:11 | SUR.OPER ---
Pt eating a chicken salad sandwich at this time.
--- NOTE | 2022-09-03 14:12 | P.OP_ITS ---
Date of procedure: 09/03/22 Pre-op Diagnosis:: Impacted esophageal food bolus Post-op Diagnosis:: Impacted esophageal food bolus Procedure performed:: EGD with removal of impacted esophageal food bolus Surgeon:: Gracia Flores MD MATERIALS SPECIALIST:: Anibal Nam Anesthesia: MAC Estimated blood loss (mL): 10 Clinical Note:: Ivon Dowd is a 31-year-old female who presented with 72 hours of oral intolerance and vomiting. She notes that 4 days ago she had a pork chop and after was not able to eat anything. CT scan that was actually done to rule out postoperative breast abscess, showed impacted mid esophageal food bolus. After risk, benefits, and alternatives of the procedure were explained to the patient, she was brought to the endoscopy suite for endoscopic retrieval of food bolus. Operative findings:: 3 to 4 cm piece of unmasticated pork chop impacted at 32 cm with proximal bloody fluid and mucosal friability. Sliding hiatal hernia with GE junction at 39 cm from incisors. No apparent esophageal stricture, ring, or sling. Operative note:: After informed consent was taken, patient was brought to the endoscopy suite and laid in the spine addition. Monitored anesthesia care was given. A timeout was performed, and then the flexible endoscope was passed transorally to about 32 cm past the incisors. I encountered bloody fluid in the esophagus and it was suctioned. There was a large, likely 3 to 4 cm bolus of meat that appeared to be almost completely unmasticated. I could not pass the scope past this bolus, and attempt to move it distally with the scope were not successful. I attempted to retrieve it with both a basket and a 4 pronged grasper and both were unsuccessful. I attempted to remove it within a suction device, I was able to remove a small piece. I passed the scope again with the device, and this time it was actually pushed distally and through the GE junction into the stomach. I passed the scope down to the pylorus which was easily patent. I retroflexed the scope, and could see the large food bolus seen in the cardia of the stomach. The scope was brought back in the distal esophagus. GE junction was at 39 cm, and there was a sliding hiatal hernia. I could not appreciate any esophageal stricture, ring, or sling. The area of esophagus where the food was impacted was friable, but there is no active bleeding and no serious erosions from removal attempt. It seemed that the proximal bloody fluid had been from her many episodes of retching, but there were no obvious Maribell-Johns tears. The scope was withdrawn completely. The patient tolerated the procedure well and was awakened. After the procedure, she was drinking liquids without any issues in the recovery room. Condition: stable Disposition: PACU Complications:: None immediate.
== END 2022-09-03 13:13 | disposition home or self-care (01) ==
LOC: ER 09:47 → SDC 09-05 14:08
PROVIDERS: Surgery; PCP Nurse Practitioner Family; Visit Provider Emergency Medicine
DX: T18.128A Food in esophagus causing other injury, initial encounter (principal); G89.18 Other acute postprocedural pain; R11.10 Vomiting, unspecified; E11.9 Type 2 diabetes mellitus without complications; I10 Essential (primary) hypertension
CPT/HCPCS: 71260; 80053; 85025; 86140; 87040; 93005; 96361; 96374; 96375; 99285; J0131; J1610; J1790; J2704; Q9967

== ENCOUNTER 2022-09-19 22:39 | Inpatient (IN) | payer MEDICAID, SELFPAY ==
[2022-09-19 22:42] VITALS: BP 131/73; PULSE 134; RESP 20; TEMP 37; O2SAT 99; BMI 46.6
--- NOTE | 2022-09-19 22:55 | PC.NURSE ---
Rounded on patient , no concerns voiced at this time.
[2022-09-19 23:00] VITALS: BP 125/68; PULSE 115; RESP 20; O2SAT 98
--- NOTE | 2022-09-19 23:19 | CT_ITS ---
PROCEDURE INFORMATION: Exam: CT Abdomen And Pelvis With Contrast Exam date and time: 09/19/2022 11:44 PM Age: 31 years old Clinical indication: Abdominal pain; Additional info: Abd pain, vomiting, sepsis TECHNIQUE: Imaging protocol: Computed tomography of the abdomen and pelvis with contrast. Radiation optimization: All CT scans at this facility use at least one of these dose optimization techniques: automated exposure control; mA and/or kV adjustment per patient size (includes targeted exams where dose is matched to clinical indication); or iterative reconstruction. Contrast material: ISOVUE; Contrast volume: 75 ml; Contrast route: IV; REPORTING DATA: Count of CT and Cardiac NM exams in prior 12 months: This patient has received [address] and 0 known cardiac nuclear medicine studies in the 12 months prior to the current study. COMPARISON: CT ABDOMEN PELVIS W CON 03/30/2020 8:58 PM FINDINGS: Diaphragm: Sliding hiatal hernia. Liver: Homogeneous low attenuation throughout the liver is compatible with fatty infiltration. Liver measures 20.0 cm in length. Gallbladder and bile ducts: Prior cholecystectomy. No biliary tree dilation or high-density retained stones appreciated. Pancreas: Normal. No ductal dilation. Spleen: Spleen measures 11.4 cm in length. Accessory spleen noted at the hilus. Adrenal glands: Normal configuration. Kidneys and ureters: Kidneys enhance symmetrically and demonstrate no evidence of mass, calculus, obstruction, or inflammation. Stomach and bowel: Unremarkable. No obstruction. No mural thickening. Appendix: Prior appendectomy. Intraperitoneal space: No free air. No significant fluid collection. Vasculature: Normal caliber arterial structures. Lymph nodes: No enlarged lymph nodes. Urinary bladder: Unremarkable as visualized. Reproductive: Prior hysterectomy. No evidence of vaginal cuff or adnexal mass. Physiologic appearance of the ovaries. Bones/joints: Mild degenerative change in the thoracolumbar spine with patent spinal canal. Mild bilateral sacroiliac osteoarthritis. Soft tissues: Small fat containing umbilical hernia. IMPRESSION: 1. No acute abnormality to explain patient's abdomen pain. In particular, there is no evidence of bowel obstruction or urolithiasis, and there has been prior appendectomy. 2. Enlarged fatty liver.
--- NOTE | 2022-09-19 23:19 | CT_ITS ---
PROCEDURE INFORMATION: Exam: CTA Chest With Contrast Exam date and time: 09/19/2022 11:44 PM Age: 31 years old Clinical indication: Shortness of breath; Prior surgery; Surgery date: <1 month; Surgery type: Left breast lumpectomy & cauterized milk glands. September 01; Additional info: JUANCHO, sai, cp, left breast post op infection TECHNIQUE: Imaging protocol: Computed tomographic angiography of the chest with contrast. Exam focused on the arteries. 3D rendering (Not supervised by radiologist): MIP and/or 3D reconstructed images were created by the technologist. Radiation optimization: All CT scans at this facility use at least one of these dose optimization techniques: automated exposure control; mA and/or kV adjustment per patient size (includes targeted exams where dose is matched to clinical indication); or iterative reconstruction. Contrast material: ISOVUE; Contrast volume: 75 ml; Contrast route: INTRAVENOUS (IV); REPORTING DATA: Count of CT and Cardiac NM exams in prior 12 months: This patient has received [address] and 0 known cardiac nuclear medicine studies in the 12 months prior to the current study. COMPARISON: CT CHEST W CON 09/03/2022 8:57 AM FINDINGS: Pulmonary arteries: Large main pulmonary artery trunk measures up to 3.7 cm. Aorta: Unremarkable. No aortic aneurysm. No aortic dissection. Thyroid: Homogeneous thyroid. Lungs: Calcified granulomata, otherwise clear lung parenchyma. Pleural spaces: Unremarkable. No pneumothorax. No pleural effusion. Heart: There is fatty change of the left ventricular apex suggesting prior infarction. Lymph nodes: Non pathologically enlarged left axillary lymph nodes may be reactive. Diaphragm: Small sliding hiatal hernia. Gallbladder and bile ducts: Prior cholecystectomy. No biliary tree dilation or high-density retained stones appreciated. Bones/joints: Mild thoracic spinal degenerative change. Soft tissues: Extensive skin and soft tissue thickening noted in the visualized left breast measuring 10.7 x 6.1 x 7.8 cm. IMPRESSION: 1. No findings of acute pulmonary embolism. Main pulmonary artery trunk is mildly enlarged, unchanged from prior. Chronic PA hypertension is not excluded. 2. Interval development of extensive increased attenuation throughout the left breast with cutaneous thickening, concerning for infection or inflammation. 3. Small sliding hiatal hernia. 4. Fatty change of the left ventricular apex is concerning for prior infarction.
[2022-09-19 23:36] LABS: Basophils # 0.1 K/mm3 (0-0.2); Basophils % 0.3 % (0.1-2.0); Eosinophils # 0.3 K/mm3 (0.0-0.4); Eosinophils % 1.7 % (0.1-12.0); Hematocrit 37.5 % (37.0-47.0); Hemoglobin 12.4 g/dL (12.2-16.2); Lymphocytes # 1.3 K/mm3 (0.7-4.5); Lymphocytes % 8.9 % (10-50); Mean Corpuscular HGB Conc 33.1 g/dL (31.8-35.4); Mean Corpuscular Hemoglobin 28.9 pg (27.0-31.2); Mean Corpuscular Volume 87.2 fl (81-99); Mean Platelet Volume 7.6 fl (7.4-10.4); Monocytes # 0.6 K/mm3 (0.1-1.0); Neutrophils # 12.7 K/mm3 (1.8-7.8); Neutrophils % 85.2 % (37.0-80.0); Platelet Count 269 K/mm3 (142-424); Red Cell Distribution Width 13.1 % (11.5-17.5); White Blood Count 14.9 K/mm3 (4.8-10.8)
[2022-09-19 23:38] LABS: MANUAL DIFFERENTIAL MANUAL DIFFERENTIAL (MANUAL DIFF)
[2022-09-19 23:43] LABS: Alanine Aminotransferase 34 U/L (12-78); Albumin Level 4.2 g/dl (3.5-5.0); Albumin/Globulin Ratio 1.6 (1.1-1.8); Alkaline Phosphatase 61 U/L (38-126); Anion Gap 14.6 mEq/L (5-15); Aspartate Amino Transferase 27 U/L (14-36); Bilirubin,Total 0.5 mg/dl (0.2-1.3); Blood Urea Nitrogen 9 mg/dl (7-17); Calcium 8.9 mg/dl (8.4-10.2); Carbon Dioxide 21 mmol/L (22.0-30.0); Chloride 108 mmol/L (98-107); Creatinine Clearance Estimated 94 mL/min (50-200); Estimated Glomerular Filt Rate 83 ml/min (>60); GFR (African American) 100 ML/MIN (>60); Globulin 2.7 g/dL (1.3-3.2); Glucose 195 mg/dl (74-100); Lipase 59 U/L (23-300); Potassium 3.6 mmoL/L (3.5-5.1); Sodium 140 mmol/L (136-145); Total Protein,Serum 6.9 g/dl (6.3-8.2)
[2022-09-19 23:44] LABS: Lactic Acid 2.8 mmol/L (0.7-2.1)
--- NOTE | 2022-09-19 23:50 | HMH.EDGENADL ---
Discharge Plan Disposition Patient Disposition: Admitted Condition: Fair Clinical Impressions Clinical Impression: Left breast abscess Sepsis Qualifiers: Sepsis type: sepsis due to unspecified organism Sepsis acute organ dysfunction status: with acute organ dysfunction Severe sepsis acute organ dysfunction type: unspecified Severe sepsis shock status: without septic shock Qualified Code(s): A41.9 - Sepsis, unspecified organism; R65.20 - Severe sepsis without septic shock Discharge ED Provider: Prashant Coyle General Adult HPI General Chief complaint: Skin/Abscess/Foreign Body Stated complaint: surg 09/01 breast , fever,vomiting dizzy Time Seen by Provider: 09/19/22 23:00 Mode of Arrival: Wheelchair Source of Information: Patient Limitations: No Limitations Description of Symptoms (Recalled from ER Triage Doc. by RN): Pt here for post op complication of her left breast performed by Dr Brannon on September 01 . She states he removed some lumps and cauterized her milk glands d/t bleeding. States her breast is too painful to touch and pain is radiating into her armpit. Pt states she was running a fever and took tylenol, began vomiting, and became dizzy. States she called the swine extension field specialist office and Dr Gama advised her to come to ER. History of Present Illness HPI narrative: 31-year-old female history of dsp-takmuol-vwknjwwhc diabetes, recent left breast lumpectomy and cauterization who presents with fever, chills, nausea vomiting, chest pain. She reports that her surgery was done with Dr. Brannon on September 01. About a week after she presented to the ER with pain and was prescribed an antibiotic, she does not recall which. She took it as prescribed. Over the last couple weeks she has had worsening left breast pain. Reports no purulent discharge. Reports that over the last day the pain has become severe. She has had associated nausea vomiting chills and fever up to 102.2. This is abnormal for her. Patient also reports chest pain and shortness of breath. No blood thinners. Patient reports abdominal pain, reports that she had an episode of feculent emesis prior to arrival. Reports that she has been having large-volume diarrhea at home. Related Data Home Medications Medication Instructions Recorded Confirmed lamotrigine 25 mg tablet 200 mg PO DAILY mood 04/26/22 09/20/22 metformin 1,000 mg tablet 1,000 mg PO BID Diabetes 04/26/22 09/20/22 cariprazine 1.5 mg capsule 3 mg PO HS mood 07/19/22 09/20/22 (Vraylar) lisinopril 20 mg tablet 20 mg PO DAILY bp 07/19/22 09/20/22 prazosin 2 mg capsule 2 mg PO HS . 07/19/22 09/20/22 propranolol 20 mg tablet 20 mg PO BID HR 07/19/22 09/20/22 hydrochlorothiazide 12.5 mg tablet 12.5 mg PO DAILY htn 09/01/22 09/20/22 topiramate 50 mg tablet (Topamax) 50 mg PO HS nightmares 09/01/22 09/20/22 pantoprazole 40 mg tablet,delayed 40 mg PO DAILY . 09/20/22 09/20/22 release (Protonix) Previous Rx's Medication Instructions Recorded ondansetron 4 mg disintegrating 4 mg PO Q8H PRN nausea and 09/03/22 tablet vomiting 4 days #16 tabs Allergies Allergy/AdvReac Type Severity Reaction Status Date / Time amoxicillin Allergy Verified 09/09/22 09:20 silver Allergy Rash Verified 09/09/22 09:20 [From Tegaderm AG Mesh] venom-honey bee Allergy Unknown Verified 09/09/22 09:20 allergy reaction venom-wasp protein Allergy Unknown Verified 09/09/22 09:20 allergy reaction PFSH PFSH Disclaimer: The information contained in this section may have been updated after the patient was seen, as this information can be updated by other users. Medical History Abnormal electrocardiogram [ECG] [EKG] Chest pain Dizziness DM2 (diabetes mellitus, type 2) Dyspnea Edema of both lower extremities Esophageal cancer HTN (hypertension) Palpitations Sinus tachycardia Surgical History (Reviewed 09/09/22 @ 09:21 by Martha Mccall,
[2022-09-19 23:59] LABS: Eosinophils % 1 % (0-3); Lymphocytes % 8 % (10-50); Monocytes % 1 % (2-9); Neutrophils % 90 % (42-76); Platelet Estimate Normal; RBC Morphology Normal; Total Cells Counted 100
[2022-09-20] VITALS (8 sets, daily range): BP systolic 91–127; BP diastolic 48–82; PULSE 83–135; RESP 16–18; TEMP 36.6–37.4; O2SAT 95–99; BMI 46.0
[2022-09-20 00:04] LABS: Microscopic, Urine URINE MICROSCOPIC (MICROSCOPIC)
--- NOTE | 2022-09-20 00:05 | ECG_ITS ---
APPROVED REPORT Resort Desk Clerk: Conclusion 1. SINUS TACHYCARDIA 2. ST DEVIATION AND MODERATE T-WAVE ABNORMALITY, CONSIDER LATERAL ISCHEMIA 3. ST DEVIATION AND MODERATE T-WAVE ABNORMALITY, CONSIDER INFERIOR ISCHEMIA 4. ABNORMAL ELECTROCARDIOGRAM 5. UNCONFIRMED REPORT Electronically signed by : Cristin Abdi, 09/23/2022 12:21:34
[2022-09-20 00:13] LABS: Appearance,Urine SL CLOUDY (Clear); Bilirubin,Urine Negative (Negative); Blood, Urine Negative (Negative); Color,Urine YELLOW (Yellow); Glucose,Urine (UA) Negative (Negative); Ketones,Urine Negative (Negative); Leukocyte Esterase,Urine Negative (Negative); Nitrate,Urine Negative (Negative); Protein,Urine TRACE (Negative); Specific Gravity, Urine 1.025 (1.005-1.030); Urobilinogen,Urine 0.2 EU/dl (0.2)
[2022-09-20 00:22] LABS: Bacteria,Urine Trace /lpf; WBC,Urine Occasional #/hpf (0-3)
--- NOTE | 2022-09-20 01:01 | EXP.HP ---
History of Present Illness *Admission Date: 09/20/22 *Reason for visit:: left side mastitis *History of present illness: This is a 31-year-old female morbidly obese with past medical history of diabetes cet-bnighcw-[id number], hypertension, bilateral fibrocystic breast changes, with cyst along inferior lateral right breast margin/ridge s/p surgical resection back on 05/12. then recently same procedure on the left side this month. pt here for post op complication of her left breast performed by Dr Brannon on September 01 . She states he removed some lumps and cauterized her milk glands d/t bleeding. States her breast is too painful to touch and pain is radiating into her armpit. Pt states she was running a fever and took tylenol, began vomiting, and became dizzy. States she called the campus receptionist office and Dr Gama advised her to come to ER. Admitted for further treatment and management. [facility] Disclaimer: The information contained in this section may have been updated after the patient was seen, as this information can be updated by other users. Medical History Abnormal electrocardiogram [ECG] [EKG] Chest pain Dizziness DM2 (diabetes mellitus, type 2) Dyspnea Edema of both lower extremities Esophageal cancer HTN (hypertension) Palpitations Sinus tachycardia Surgical History History of appendectomy History of section x 2 History of colonoscopy History of hysterectomy History of laparoscopic cholecystectomy History of tonsillectomy Hx of dilation and curettage x2 Hx of umbilical hernia repair Family History Other Family history of cancer 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 (Updated 09/20/22 @ 01:04 by Tierney Rose RN) Smoking Status: Former smoker second hand exposure: No alcohol intake: never substance use type: denies use, former substance user and crack/cocaine current occupational status: employed Travel in the last 8 weeks: None household members: children housing: house lives independently: Yes marital status: number of children: 2 education level: high school service: No current occupation: [employer] current occupational exposures/hazards: No caffeine: Yes special sofia needs: No agree to transfusion: No do you feel safe at home: Yes victim of physical abuse: No victim of emotional abuse: No victim of sexual abuse: No would you like helpful sources: No Review of Systems Review of Systems Review of systems:: pertinent systems reviewed and negative unless documented below Meds Home Medications and Allergies Home Medications Medication Instructions Recorded Confirmed Type metformin 1,000 mg tablet 1,000 mg PO BID Diabetes 04/26/22 09/20/22 History lisinopril 20 mg tablet 20 mg PO DAILY Blood pressure 07/19/22 09/20/22 History prazosin 2 mg capsule 2 mg PO HS Nightmares 07/19/22 09/20/22 History propranolol 20 mg tablet 20 mg PO BID Blood pressure 07/19/22 09/20/22 History hydrochlorothiazide 12.5 mg tablet 12.5 mg PO DAILY Diuretic 09/01/22 09/20/22 History topiramate 50 mg tablet (Topamax) 50 mg PO HS nightmares 09/01/22 09/20/22 History ondansetron 4 mg disintegrating 4 mg PO Q8H PRN nausea and 09/03/22 09/20/22 Rx tablet vomiting 4 days #16 tabs cariprazine 3 mg capsule (Vraylar) 3 mg PO DAILY mood 09/20/22 09/20/22 History lamotrigine 200 mg tablet 200 mg PO DAILY mood 09/20/22 09/20/22 History pantoprazole 40 mg tablet,delayed 40 mg PO DAILY Acid Reflux 09/20/22 09/20/22 History release (Protonix) quetiapine 25 mg tablet 25 mg PO HS Sleep 09/20/22 09/20/22 History sulfamethoxazole 800 1 tab PO BID Infection 09/20/22 09/20/22 History mg-trimethoprim 160 mg tablet New Prescriptions to Start Prescriptions: Allergies Allergy/AdvReac Type Severity Reaction
[2022-09-20 02:45] LABS: Reflex Lactic Add Lactic Reflex
--- NOTE | 2022-09-20 02:51 | PC.NURSE ---
pt arrived to floor via wheelchair @[id number]
[2022-09-20 03:33] LABS: Lactic Acid Follow Up (RFLX 1) 2.3 mmol/L (0.7-2.1)
--- NOTE | 2022-09-20 03:55 | PC.NURSE ---
spoke with TERESA Maddox regarding pt. nausea, ordered to give a dose of zofran now.
[2022-09-20 05:01] LABS: Reflex Lactic (2 hrs) Add Lactic Reflex
[2022-09-20 05:58] LABS: Basophils % 0.2 % (0.1-2.0); Eosinophils # 0.2 K/mm3 (0.0-0.4); Hemoglobin 11.7 g/dL (12.2-16.2); Lymphocytes # 1.6 K/mm3 (0.7-4.5); Lymphocytes % 9.9 % (10-50); Mean Corpuscular HGB Conc 33.5 g/dL (31.8-35.4); Mean Corpuscular Hemoglobin 28.9 pg (27.0-31.2); Mean Corpuscular Volume 86.4 fl (81-99); Mean Platelet Volume 7.9 fl (7.4-10.4); Monocytes # 0.9 K/mm3 (0.1-1.0); Monocytes % 5.8 % (1.7-9.3); Neutrophils # 13.5 K/mm3 (1.8-7.8); Neutrophils % 83.1 % (37.0-80.0); Platelet Count 261 K/mm3 (142-424); Red Blood Count 4.05 M/mm3 (4.20-5.40); Red Cell Distribution Width 13.2 % (11.5-17.5); White Blood Count 16.2 K/mm3 (4.8-10.8)
[2022-09-20 06:02] LABS: Chloride 109 mmol/L (98-107); Sodium 137 mmol/L (136-145)
[2022-09-20 06:03] LABS: Potassium 3.3 mmoL/L (3.5-5.1)
[2022-09-20 06:04] LABS: Lactic Acid Follow up (RFLX 2) 1.9 mmol/L (0.7-2.1)
[2022-09-20 06:05] LABS: Alanine Aminotransferase 32 U/L (12-78); Albumin Level 3.5 g/dl (3.5-5.0); Albumin/Globulin Ratio 1.3 (1.1-1.8); Alkaline Phosphatase 57 U/L (38-126); Anion Gap 12.3 mEq/L (5-15); Aspartate Amino Transferase 34 U/L (14-36); Blood Urea Nitrogen 12 mg/dl (7-17); Calcium 8.4 mg/dl (8.4-10.2); Carbon Dioxide 19 mmol/L (22.0-30.0); Creatinine Clearance Estimated 83 mL/min (50-200); Estimated Glomerular Filt Rate 72 ml/min (>60); GFR (African American) 87 ML/MIN (>60); Globulin 2.7 g/dL (1.3-3.2); Glucose 193 mg/dl (74-100); INR 1.17 (0.9-1.1); Prothrombin Time 12.5 seconds (10.1-12.5); Total Protein,Serum 6.2 g/dl (6.3-8.2)
[2022-09-20 06:15] LABS: POC Glucose,Bedside 203 (70-110)
--- NOTE | 2022-09-20 07:19 | EXP.SURG.CON ---
History of Present Illness *Admission Date: 09/20/22 *Reason for visit:: Postoperative infection status post subareolar ductal excision *History of present illness: This is a 31-year-old female seen in consultation from the primary service after presenting the emergency department with left breast swelling/pain. Evaluation revealed changes consistent with possible soft tissue infection of the left breast. She is status post subareolar ductal excision on September 01 of this year. Please see HPI forwarded from admission H&P below. Forwarded from admission H&P: This is a 31-year-old female morbidly obese with past medical history of diabetes [id number], hypertension, bilateral fibrocystic breast changes, with cyst along inferior lateral right breast margin/ridge s/p surgical resection back on 05/12. then recently same procedure on the left side this month. pt here for post op complication of her left breast performed by Dr Brannon on September 01 . She states he removed some lumps and cauterized her milk glands d/t bleeding. States her breast is too painful to touch and pain is radiating into her armpit. Pt states she was running a fever and took tylenol, began vomiting, and became dizzy. States she called the accounting manager assistant controller office and Dr Gama advised her to come to ER. Admitted for further treatment and management. [facility] Disclaimer: The information contained in this section may have been updated after the patient was seen, as this information can be updated by other users. Medical History Abnormal electrocardiogram [ECG] [EKG] Chest pain Dizziness DM2 (diabetes mellitus, type 2) Dyspnea Edema of both lower extremities Esophageal cancer HTN (hypertension) Palpitations Sinus tachycardia Surgical History History of appendectomy History of section x 2 History of colonoscopy History of hysterectomy History of laparoscopic cholecystectomy History of tonsillectomy Hx of dilation and curettage x2 Hx of umbilical hernia repair Family History Other Family history of cancer 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 (Updated 09/20/22 @ 01:04 by Tiernye Rose RN) Smoking Status: Former smoker second hand exposure: No alcohol intake: never substance use type: denies use, former substance user and crack/cocaine current occupational status: employed Travel in the last 8 weeks: None household members: children housing: house lives independently: Yes marital status: number of children: 2 education level: high school service: No current occupation: [employer] current occupational exposures/hazards: No caffeine: Yes special sofia needs: No agree to transfusion: No do you feel safe at home: Yes victim of physical abuse: No victim of emotional abuse: No victim of sexual abuse: No would you like helpful sources: No Meds Home Medications and Allergies Home Medications Medication Instructions Recorded Confirmed Type metformin 1,000 mg tablet 1,000 mg PO BID Diabetes 04/26/22 09/20/22 History lisinopril 20 mg tablet 20 mg PO DAILY bp 07/19/22 09/20/22 History prazosin 2 mg capsule 2 mg PO HS . 07/19/22 09/20/22 History propranolol 20 mg tablet 20 mg PO BID HR 07/19/22 09/20/22 History hydrochlorothiazide 12.5 mg tablet 12.5 mg PO DAILY htn 09/01/22 09/20/22 History topiramate 50 mg tablet (Topamax) 50 mg PO HS nightmares 09/01/22 09/20/22 History ondansetron 4 mg disintegrating 4 mg PO Q8H PRN nausea and 09/03/22 09/20/22 Rx tablet vomiting 4 days #16 tabs cariprazine 3 mg capsule (Vraylar) 3 mg PO DAILY mood 09/20/22 09/20/22 History lamotrigine 200 mg tablet 200 mg PO DAILY mood 09/20/22 09/20/22 History pantoprazole 40 mg tablet,delayed 40 mg PO DAILY . 09/20/22 09/20/22 History release (Protonix)
--- NOTE | 2022-09-20 07:43 | HMH.PHAINT1 ---
Pharmacy Intervention Comments: patient's home medications were verified by the patient. -Wilfred Ahuja, PharmD student
--- NOTE | 2022-09-20 07:45 | EXP.PHA.CONS ---
Pharmacy Consult Date: 09/20/22 Time: 07:47 Referring provider: DR GARCIA Reason for Consult:: VANCOMYCIN DOSING CONSULT Allergies Allergy/AdvReac Type Severity Reaction Status Date / Time amoxicillin Allergy Verified 09/09/22 09:20 silver Allergy Rash Verified 09/09/22 09:20 [From Tegaderm AG Mesh] venom-honey bee Allergy Unknown Verified 09/09/22 09:20 allergy reaction venom-wasp protein Allergy Unknown Verified 09/09/22 09:20 allergy reaction Home Medications Medication Instructions Recorded Confirmed Type metformin 1,000 mg tablet 1,000 mg PO BID Diabetes 04/26/22 09/20/22 History lisinopril 20 mg tablet 20 mg PO DAILY bp 07/19/22 09/20/22 History prazosin 2 mg capsule 2 mg PO HS . 07/19/22 09/20/22 History propranolol 20 mg tablet 20 mg PO BID HR 07/19/22 09/20/22 History hydrochlorothiazide 12.5 mg tablet 12.5 mg PO DAILY htn 09/01/22 09/20/22 History topiramate 50 mg tablet (Topamax) 50 mg PO HS nightmares 09/01/22 09/20/22 History ondansetron 4 mg disintegrating 4 mg PO Q8H PRN nausea and 09/03/22 09/20/22 Rx tablet vomiting 4 days #16 tabs cariprazine 3 mg capsule (Vraylar) 3 mg PO DAILY mood 09/20/22 09/20/22 History lamotrigine 200 mg tablet 200 mg PO DAILY mood 09/20/22 09/20/22 History pantoprazole 40 mg tablet,delayed 40 mg PO DAILY . 09/20/22 09/20/22 History release (Protonix) quetiapine 25 mg tablet 25 mg PO HS Sleep 09/20/22 09/20/22 History sulfamethoxazole 800 1 tab PO BID Infection 09/20/22 09/20/22 History mg-trimethoprim 160 mg tablet New Prescriptions to Start Prescriptions: Height: 1.68 m Weight: 129.863 kg Laboratory Results:: Laboratory Results - last 24 hr 09/19/22 23:20: WBC 14.9 H, RBC 4.30, Hgb 12.4, Hct 37.5, MCV 87.2, MCH 28.9, MCHC 33.1, RDW 13.1, Plt Count 269, MPV 7.6, Neut % (Auto) 85.2 H, Lymph % (Auto) 8.9 L, [place] % (Auto) 4.0, Eos % (Auto) 1.7, Baso % (Auto) 0.3, Neut # (Auto) 12.7 H, Lymph # (Auto) 1.3, [place] # (Auto) 0.6, Eos # (Auto) 0.3, Baso # (Auto) 0.1, Total Counted 100, Neutrophils % (Manual) 90 H, Lymphocytes % (Manual) 8 L, Monocytes % (Manual) 1 L, Eosinophils % (Manual) 1, Platelet Estimate Normal, RBC Morphology Normal, Sodium 140, Potassium 3.6, Chloride 108 H, Carbon Dioxide 21 L, Anion Gap 14.6, BUN 9, Creatinine 0.80, Estimated Creat Clear 94, Estimated GFR 83, Est GFR ( Amer) 100, Glucose 195 H, Lactate 2.8 H, Calcium 8.9, Total Bilirubin 0.5, AST 27, ALT 34, Alkaline Phosphatase 61, Total Protein 6.9, Albumin 4.2, Globulin 2.7, Albumin/Globulin Ratio 1.6, Lipase 59 09/19/22 23:59: Urine Color Yellow, Urine Appearance Sl cloudy, Urine pH 6.0, Ur Specific [place] 1.025, Urine Protein Trace, Urine Glucose (UA) Negative, Urine Ketones Negative, Urine Blood Negative, Urine Nitrate Negative, Urine Bilirubin Negative, Urine Urobilinogen 0.2, Ur Leukocyte Esterase Negative, Urine RBC None, Urine WBC Occasional, Ur Squamous Epith Cells 5-10, Urine Bacteria Trace 09/20/22 00:00: Blood Type A Positive, Antibody Screen Negative 09/20/22 03:00: Lactate 2.3 H 09/20/22 05:24: WBC 16.2 H, RBC 4.05 L, Hgb 11.7 L, Hct 35.0 L, MCV 86.4, MCH 28.9, MCHC 33.5, RDW 13.2, Plt Count 261, MPV 7.9, Neut % (Auto) 83.1 H, Lymph % (Auto) 9.9 L, [place] % (Auto) 5.8, Eos % (Auto) 1.0, Baso % (Auto) 0.2, Neut # (Auto) 13.5 H, Lymph # (Auto) 1.6, [place] # (Auto) 0.9, Eos # (Auto) 0.2, Baso # (Auto) 0.0, PT 12.5, INR 1.17 H, Sodium 137, Potassium 3.3 L, Chloride 109 H, Carbon Dioxide 19 L, Anion Gap 12.3, BUN 12 D, Creatinine 0.90, Estimated Creat Clear 83, Estimated GFR 72, Est GFR ( Amer) 87, Glucose 193 H, Lactate 1.9, Calcium 8.4, Total Bilirubin 1.0, AST 34 D, ALT 32, Alkaline Phosphatase 57, Total Protein 6.2 L, Albumin 3.5 D, Globulin 2.7, Albumin/Globulin Ratio 1.3 09/20/22 05:43: POC Glucose 203 H Medical History: Medical History (Updated 09/20/22 @ 02:12 by Tan Flores APRN) Abnormal electrocardiogram [ECG] [EKG] Chest pain Dizziness DM2 (di
[2022-09-20 12:31] LABS: POC Glucose,Bedside 218 (70-110)
[2022-09-20 16:43] LABS: POC Glucose,Bedside 188 (70-110)
--- NOTE | 2022-09-20 17:28 | PC.NURSE ---
pt called out stating she is having increase pain at lt breast. stating her breast feels tighter than this morning, feel like its about to bust . redness, warmth and swelling slightly more than am assessment. notified hospitalist and dr jerez. per mrei, apply ice pack and treat pain per mar. outlined border of redness on lt breast.
[2022-09-20 20:44] LABS: POC Glucose,Bedside 170 (70-110)
[2022-09-21] VITALS (19 sets, daily range): BP systolic 115–152; BP diastolic 49–94; PULSE 78–124; RESP 12–22; TEMP 36.5–37.3; O2SAT 91–100; BMI 50.1
--- NOTE | 2022-09-21 05:09 | PC.NURSE ---
Pt medicated for nausea, fever, and pain PRN per MAR this shift. Pt has had no other complaints. Redness, edema, and warmth noted to left breast.
--- NOTE | 2022-09-21 06:28 | PC.NURSE ---
Redness to left breast spread since previous assessment. OIL DELIVERER notified, and breast remarked @[id number]
[2022-09-21 06:40] LABS: Chloride 108 mmol/L (98-107); Potassium 3.1 mmoL/L (3.5-5.1); Sodium 136 mmol/L (136-145)
[2022-09-21 06:42] LABS: Basophils % 0.3 % (0.1-2.0); Eosinophils # 0.3 K/mm3 (0.0-0.4); Eosinophils % 3.2 % (0.1-12.0); Hematocrit 31.2 % (37.0-47.0); Hemoglobin 10.3 g/dL (12.2-16.2); Lymphocytes # 1.5 K/mm3 (0.7-4.5); Lymphocytes % 15.7 % (10-50); Mean Corpuscular HGB Conc 32.9 g/dL (31.8-35.4); Mean Corpuscular Hemoglobin 28.9 pg (27.0-31.2); Mean Corpuscular Volume 87.8 fl (81-99); Mean Platelet Volume 8.9 fl (7.4-10.4); Monocytes # 0.6 K/mm3 (0.1-1.0); Neutrophils % 74.8 % (37.0-80.0); Platelet Count 208 K/mm3 (142-424); Red Blood Count 3.55 M/mm3 (4.20-5.40); Red Cell Distribution Width 13.3 % (11.5-17.5); White Blood Count 9.4 K/mm3 (4.8-10.8)
[2022-09-21 06:43] LABS: Anion Gap 12.1 mEq/L (5-15); Blood Urea Nitrogen 12 mg/dl (7-17); Calcium 8.2 mg/dl (8.4-10.2); Carbon Dioxide 19 mmol/L (22.0-30.0); Creatinine Clearance Estimated 94 mL/min (50-200); Estimated Glomerular Filt Rate 83 ml/min (>60); GFR (African American) 100 ML/MIN (>60); Glucose 208 mg/dl (74-100); Magnesium 1.7 mg/dl (1.6-2.3)
[2022-09-21 06:48] LABS: POC Glucose,Bedside 218 (70-110)
--- NOTE | 2022-09-21 07:21 | EXP.SURG.PN ---
Subjective Patient reports: no new complaints and still having pain Exam Data for Last 24 hours Vital signs and Labs for Last 24 Hours: Temp Pulse Resp BP Pulse Ox O2 Del Method 99.2 F 124 H 20 118/79 95 Room Air 09/21/22 04:00 09/21/22 04:00 09/21/22 04:00 09/21/22 04:00 09/21/22 04:00 09/21/22 05:00 Laboratory Results - last 24 hr 09/20/22 12:22: POC Glucose 218 H 09/20/22 16:34: POC Glucose 188 H 09/20/22 20:06: POC Glucose 170 H 09/21/22 05:45: WBC 9.4 D, RBC 3.55 L, Hgb 10.3 L, Hct 31.2 L, MCV 87.8, MCH 28.9, MCHC 32.9, RDW 13.3, Plt Count 208, MPV 8.9, Neut % (Auto) 74.8, Lymph % (Auto) 15.7, [place] % (Auto) 6.0, Eos % (Auto) 3.2, Baso % (Auto) 0.3, Neut # (Auto) 7.0, Lymph # (Auto) 1.5, [place] # (Auto) 0.6, Eos # (Auto) 0.3, Baso # (Auto) 0.0, Sodium 136, Potassium 3.1 L, Chloride 108 H, Carbon Dioxide 19 L, Anion Gap 12.1, BUN 12, Creatinine 0.80, Estimated Creat Clear 94, Estimated GFR 83, Est GFR ( Amer) 100, Glucose 208 H, Calcium 8.2 L, Magnesium 1.7 09/21/22 06:23: POC Glucose 218 H I & O for Last 24 hours: Intake & Output 09/18/22 09/19/22 09/20/22 09/21/22 11:59 11:59 11:59 11:59 Intake Total 180 / 180 2079 Output Total 0 / 0 0 / 0 Balance 180 / 180 2079 Weight 286 lb 4.8 oz 312 lb Constitutional Constitutional: no acute distress Routine Chest/Breast/Axilla Exam Breast: Present tenderness, swelling and erythema Comments: Blush persists with some extension superiorly. Slight decrease induration immediately. *Routine Respiratory Exam Respiratory: Absent respiratory distress *Routine Cardiovascular Exam Cardiovascular: Present tachycardia Progress Note: A&P Assessment and plan (1) Left breast abscess: Status: Acute Assessment and plan: Whether this represents a true abscess versus mastitis overlying postoperative hematoma/seroma remains difficult to truly differentiate. She has not shown improvement with regard to inflammatory blush. I have discussed the risks and benefits of at least focused incision and drainage of possible underlying abscess. The patient agrees to proceed. This will be scheduled for later today. (2) Sepsis: Status: Acute (3) DM2 (diabetes mellitus, type 2): Status: Acute (4) HTN (hypertension): Status: Acute (5) Bipolar disorder: Status: Acute (6) Morbid obesity with BMI of 40.0-44.9, adult: Status: Acute
--- NOTE | 2022-09-21 09:35 | EXP.PN ---
Subjective *Date: 09/21/22 *Time: 14:00 Interval history: The patient had incision and drainage of left breast abscess. total of 400mL thin purulent fluid was expressed, and a sample was sent for gram stain/culture. Her pain is in control she has had some nausea post-operatively Exam Data for Last 24 hours Vital signs and Labs for Last 24 Hours: Temp Pulse Resp BP Pulse Ox O2 Del Method 97.9 F 113 H 18 120/67 98 Room Air 09/21/22 07:39 09/21/22 07:39 09/21/22 07:39 09/21/22 07:39 09/21/22 07:39 09/21/22 07:39 Laboratory Results - last 24 hr 09/20/22 12:22: POC Glucose 218 H 09/20/22 16:34: POC Glucose 188 H 09/20/22 20:06: POC Glucose 170 H 09/21/22 05:45: WBC 9.4 D, RBC 3.55 L, Hgb 10.3 L, Hct 31.2 L, MCV 87.8, MCH 28.9, MCHC 32.9, RDW 13.3, Plt Count 208, MPV 8.9, Neut % (Auto) 74.8, Lymph % (Auto) 15.7, [place] % (Auto) 6.0, Eos % (Auto) 3.2, Baso % (Auto) 0.3, Neut # (Auto) 7.0, Lymph # (Auto) 1.5, [place] # (Auto) 0.6, Eos # (Auto) 0.3, Baso # (Auto) 0.0, Sodium 136, Potassium 3.1 L, Chloride 108 H, Carbon Dioxide 19 L, Anion Gap 12.1, BUN 12, Creatinine 0.80, Estimated Creat Clear 94, Estimated GFR 83, Est GFR ( Amer) 100, Glucose 208 H, Calcium 8.2 L, Magnesium 1.7 09/21/22 06:23: POC Glucose 218 H I & O for Last 24 hours: Intake & Output 09/18/22 09/19/22 09/20/22 09/21/22 23:59 23:59 23:59 23:59 Intake Total 780 / 780 1840 / 1840 Output Total 0 / 0 0 / 0 Balance 780 / 780 184 / 1840 Weight 131.088 kg 129.863 kg 141.521 kg Constitutional Constitutional: no acute distress *Routine HEENT Exam Head: Present normocephalic Eye: Present EOMI and PERRL ENT: Present mucous membranes moist *Routine Neck Exam Neck: Present supple; Absent lymphadenopathy Routine Chest/Breast/Axilla Exam Comments: left breast with dressing c/d/i *Routine Respiratory Exam Respiratory: Present CTA bilaterally *Routine Cardiovascular Exam Cardiovascular: Present RRR *Routine Abdominal Exam Abdominal: Present soft and normoactive bowel sounds; Absent tenderness *Routine Extremities Exam Extremities: Absent cyanosis, clubbing or edema *Routine Skin Exam Skin: Present warm; Absent rash *Routine Neurological Exam Neurological: Present alert and oriented X3 Assessment and Plan *Assessment and plan (1) Left breast abscess: Status: Acute Category: Medical Code(s): N61.1 - Abscess of the breast and nipple (2) Sepsis: Status: Acute Qualifiers: Sepsis acute organ dysfunction status: with acute organ dysfunction Sepsis type: sepsis due to unspecified organism Severe sepsis acute organ dysfunction type: unspecified Severe sepsis shock status: without septic shock Qualified Code(s): A41.9 - Sepsis, unspecified organism; R65.20 - Severe sepsis without septic shock Category: Medical Code(s): A41.9 - Sepsis, unspecified organism (3) DM2 (diabetes mellitus, type 2): Status: Acute Qualifiers: Diabetes mellitus wink cutter operator insulin use: without wink cutter operator use Diabetes mellitus complication status: with hyperglycemia Qualified Code(s): E11.65 - Type 2 diabetes mellitus with hyperglycemia Category: Medical Code(s): E11.9 - Type 2 diabetes mellitus without complications (4) HTN (hypertension): Status: Acute Qualifiers: Hypertension type: unspecified Qualified Code(s): I10 - Essential (primary) hypertension Category: Medical Code(s): I10 - Essential (primary) hypertension (5) Bipolar disorder: Status: Acute Qualifiers: Active/Remission status: remission status unspecified Qualified Code(s): F31.9 - Bipolar disorder, unspecified Category: Medical Code(s): F31.9 - Bipolar disorder, unspecified (6) Morbid obesity with BMI of 40.0-44.9, adult: Status: Acute Category: Medical Code(s): E66.01 - Morbid (severe) obesity due to excess calories; Z68.41 - [place]ass[place]
--- NOTE | 2022-09-21 11:45 | EXP.OP.NOTE ---
Date of procedure: 09/21/22 Pre-op Diagnosis:: Left breast abscess Post-op Diagnosis:: Same Procedure performed:: Incision and drainage of left breast abscess Surgeon:: David Chacko MD Anesthesia: LMA Estimated blood loss (mL): 10 Operative findings:: 400 mL of cloudy/thin purulent fluid evacuated Operative note:: After informed consent was obtained the patient was taken to the operating room and placed in the supine position. General anesthesia with laryngeal mask airway was achieved. Her left breast was prepped and draped in a sterile fashion. A 2 cm region along the mid/lateral aspect of her prior incision (status post left subareolar ductal excision) was noted. 4-0 nylon suture was utilized to stabilize the medial and lateral margins. The incision was then opened between these stay sutures to allow evacuation of contents. Thin purulent/cloudy fluid was expressed. The fluid was obtained for Gram stain/culture. A total of 400 mL of fluid was evacuated. The cavity was then packed with Kerlix. The entire region was infiltrated with 1% lidocaine. Dressings were applied and the patient was transferred to recovery in stable condition Condition: stable Disposition: PACU Specimens:: Fluid for Gram stain/culture Complications:: No immediate
--- NOTE | 2022-09-21 11:52 | P.PNANES_ITS ---
[facility] Disclaimer: The information contained in this section may have been updated after the patient was seen, as this information can be updated by other users. Medical History Abnormal electrocardiogram [ECG] [EKG] Chest pain Dizziness DM2 (diabetes mellitus, type 2) Dyspnea Edema of both lower extremities Esophageal cancer HTN (hypertension) Palpitations Sinus tachycardia Surgical History History of appendectomy History of section x 2 History of colonoscopy History of hysterectomy History of laparoscopic cholecystectomy History of tonsillectomy Hx of dilation and curettage x2 Hx of umbilical hernia repair Family History Other Family history of cancer 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 (Updated 09/20/22 @ 01:04 by Tierney Rose RN) Smoking Status: Former smoker second hand exposure: No alcohol intake: never substance use type: denies use, former substance user and crack/cocaine current occupational status: employed Travel in the last 8 weeks: None household members: children housing: house lives independently: Yes marital status: number of children: 2 education level: high school service: No current occupation: [employer] current occupational exposures/hazards: No caffeine: Yes special sofia needs: No agree to transfusion: No do you feel safe at home: Yes victim of physical abuse: No victim of emotional abuse: No victim of sexual abuse: No would you like helpful sources: No [facility] Anesthesia Checklist Patient Identification Patient Identification: Arm Band Structural Data Admitted From: Inpatient Planned Operative Procedure/s: I and D Left infected breast. Consent for Planned Operative Procedure(s) Verified: Yes Verified Documents: Surgical Consent and History and Physical NPO Status Verified Time NPO: 00:00 Additional verifications Patient : No Anesthesia Reactions: No Hx Blood Transfusions: No Blood Transfusion Reaction: No Cephalosporin Allergy: No Previous Colonoscopy: No Airway Assessment Mallampati Score:: Class II C-Spine Mobility Assessed: Yes TMJ Mobility Assessed: Yes Dentition: Good Dentition Neurological Assessment Level of Consciousness: Awake, Alert, Appropriate and Follows Commands Hx Seizures: No Numbness or tingling in extremities: No Anesthesia Plan Anesthesia Risk discussed: Yes ASA Class: III Anesthesia Type: General Preoperative Comments Pre-Operative Comments: NIDDM (161 GLUSOSE), HTN. Obesity 310 pounds,
--- NOTE | 2022-09-21 11:56 | EXP.ANES.I ---
[facility] Anesthesia Record Part I Anesthesia Record I Intake, IV Amount: 400 Estimated blood loss (mL): 10 Urine output (mL): 0 Blood Products used (#): none Blood Pressure: 142/93 SaO2: 93 Pulse Rate: 118 Respiratory Rate: 22 Temperature: 98.3 F Patient is:: Drowsy and Stable Stable to PACU at:: 11:48
[2022-09-21 12:25] LABS: POC Glucose,Bedside 182 (70-110)
--- NOTE | 2022-09-21 12:32 | SUR.PHASEI ---
1217: Detailed report called to Carol Chavarria RN on Med/Surg floor. 1220: Patient left in stable condition in Room 214. Vital signs stable. Dressing clean, dry, & intact. Family at bedside. 1215: 182 Finger stick.
[2022-09-21 14:44] LABS: Vancomycin,Trough 5.4 ug/mL (5.0-10.0)
--- NOTE | 2022-09-21 15:16 | EXP.PHA.CONS ---
Pharmacy Consult Date: 09/21/22 Time: 15:21 Referring provider: DR ALBARRAN Reason for Consult:: VANCOMYCIN TROUGH LEVEL OBTAINED. Allergies Allergy/AdvReac Type Severity Reaction Status Date / Time amoxicillin Allergy Verified 09/09/22 09:20 silver Allergy Rash Verified 09/09/22 09:20 [From Tegaderm AG Mesh] venom-honey bee Allergy Unknown Verified 09/09/22 09:20 allergy reaction venom-wasp protein Allergy Unknown Verified 09/09/22 09:20 allergy reaction Home Medications Medication Instructions Recorded Confirmed Type metformin 1,000 mg tablet 1,000 mg PO BID Diabetes 04/26/22 09/20/22 History lisinopril 20 mg tablet 20 mg PO DAILY Blood pressure 07/19/22 09/20/22 History prazosin 2 mg capsule 2 mg PO HS Nightmares 07/19/22 09/20/22 History propranolol 20 mg tablet 20 mg PO BID Blood pressure 07/19/22 09/20/22 History hydrochlorothiazide 12.5 mg tablet 12.5 mg PO DAILY Diuretic 09/01/22 09/20/22 History topiramate 50 mg tablet (Topamax) 50 mg PO HS nightmares 09/01/22 09/20/22 History ondansetron 4 mg disintegrating 4 mg PO Q8H PRN nausea and 09/03/22 09/20/22 Rx tablet vomiting 4 days #16 tabs cariprazine 3 mg capsule (Vraylar) 3 mg PO DAILY mood 09/20/22 09/20/22 History lamotrigine 200 mg tablet 200 mg PO DAILY mood 09/20/22 09/20/22 History pantoprazole 40 mg tablet,delayed 40 mg PO DAILY Acid Reflux 09/20/22 09/20/22 History release (Protonix) quetiapine 25 mg tablet 25 mg PO HS Sleep 09/20/22 09/20/22 History sulfamethoxazole 800 1 tab PO BID Infection 09/20/22 09/20/22 History mg-trimethoprim 160 mg tablet New Prescriptions to Start Prescriptions: Height: 1.68 m Weight: 141.521 kg Laboratory Results:: Laboratory Results - last 24 hr 09/20/22 16:34: POC Glucose 188 H 09/20/22 20:06: POC Glucose 170 H 09/21/22 05:45: WBC 9.4 D, RBC 3.55 L, Hgb 10.3 L, Hct 31.2 L, MCV 87.8, MCH 28.9, MCHC 32.9, RDW 13.3, Plt Count 208, MPV 8.9, Neut % (Auto) 74.8, Lymph % (Auto) 15.7, [place] % (Auto) 6.0, Eos % (Auto) 3.2, Baso % (Auto) 0.3, Neut # (Auto) 7.0, Lymph # (Auto) 1.5, [place] # (Auto) 0.6, Eos # (Auto) 0.3, Baso # (Auto) 0.0, Sodium 136, Potassium 3.1 L, Chloride 108 H, Carbon Dioxide 19 L, Anion Gap 12.1, BUN 12, Creatinine 0.80, Estimated Creat Clear 94, Estimated GFR 83, Est GFR ( Amer) 100, Glucose 208 H, Calcium 8.2 L, Magnesium 1.7 09/21/22 06:23: POC Glucose 218 H 09/21/22 12:17: POC Glucose 182 H 09/21/22 13:30: Vancomycin Trough 5.4 Medical History: Medical History (Updated 09/20/22 @ 02:12 by Tan Flores APRN) Abnormal electrocardiogram [ECG] [EKG] Chest pain Dizziness DM2 (diabetes mellitus, type 2) Dyspnea Edema of both lower extremities Esophageal cancer HTN (hypertension) Palpitations Sinus tachycardia Assessment and Plan Assessment and plan all Dx Assessment and Plan for all problems:: VANCOMYCIN TROUGH LEVEL OBTAINED: 5.4 MCG/ML (09/21/22 13:30) RECOMMENDED DOSE AND PREDICTED LEVELS Based on a selected AUC 0-24 of 500 mg?h/liter Recommended dose: 2392 mg Recommended Interval: 12 hrs Predicted peak: 35.0 mcg/ml. Predicted trough: 12.50 mcg/ml. AUC 0-24 /VAL (based on an VAL of 1 mg/L): 533.7 ~Target: 400 - 600. RECOMMENDATION: GIVE VANCOMYCIN 2500 MG IV Q12H FOR A PREDICTED PEAK OF 34.4 MCG/ML AND A PREDICTED TROUGH OF 12.16 MCG/ML New dose: 2500 mg New interval: 12 hrs FINAL VALUES - NEW REGIMEN Predicted values: PEAK: 34.4 mcg/ml TROUGH: 12.16 mcg/ml AUC 0-24 /VAL Data: VAL 0.5 mcg/mL: AUC/VAL: 1045.3 VAL 1.0 mcg/mL: AUC/VAL: 522.6 VAL 1.5 mcg/mL: AUC/VAL: 348.4
[2022-09-21 17:26] LABS: POC Glucose,Bedside 272 (70-110)
[2022-09-21 19:39] LABS: Vancomycin,Peak 17.4 ug/ml (11-39)
[2022-09-21 21:18] LABS: POC Glucose,Bedside 312 (70-110)
[2022-09-22] VITALS (7 sets, daily range): BP systolic 98–152; BP diastolic 58–97; PULSE 79–105; RESP 16–20; TEMP 36.3–37; O2SAT 96–100; BMI 51.7
[2022-09-22 06:05] LABS: Basophils % 0.3 % (0.1-2.0); Eosinophils # 0.1 K/mm3 (0.0-0.4); Eosinophils % 1.5 % (0.1-12.0); Hematocrit 30.3 % (37.0-47.0); Hemoglobin 9.9 g/dL (12.2-16.2); Lymphocytes # 1.3 K/mm3 (0.7-4.5); Lymphocytes % 20.3 % (10-50); Mean Corpuscular HGB Conc 32.6 g/dL (31.8-35.4); Mean Corpuscular Hemoglobin 28.8 pg (27.0-31.2); Mean Corpuscular Volume 88.4 fl (81-99); Mean Platelet Volume 8.3 fl (7.4-10.4); Monocytes # 0.3 K/mm3 (0.1-1.0); Monocytes % 4.4 % (1.7-9.3); Neutrophils # 4.9 K/mm3 (1.8-7.8); Neutrophils % 73.5 % (37.0-80.0); Platelet Count 183 K/mm3 (142-424); Red Blood Count 3.43 M/mm3 (4.20-5.40); Red Cell Distribution Width 13.1 % (11.5-17.5); White Blood Count 6.6 K/mm3 (4.8-10.8)
[2022-09-22 06:14] LABS: Chloride 111 mmol/L (98-107); Potassium 4.4 mmoL/L (3.5-5.1); Sodium 138 mmol/L (136-145)
[2022-09-22 06:17] LABS: Anion Gap 9.4 mEq/L (5-15); Blood Urea Nitrogen 10 mg/dl (7-17); Carbon Dioxide 22 mmol/L (22.0-30.0); Creatinine Clearance Estimated 125 mL/min (50-200); Estimated Glomerular Filt Rate 115 ml/min (>60); GFR (African American) 139 ML/MIN (>60)
[2022-09-22 06:18] LABS: Calcium 8.3 mg/dl (8.4-10.2); Glucose 248 mg/dl (74-100); Magnesium 2.1 mg/dl (1.6-2.3)
--- NOTE | 2022-09-22 07:01 | EXP.SURG.PN ---
Subjective Patient reports: no new complaints Exam Data for Last 24 hours Vital signs and Labs for Last 24 Hours: Temp Pulse Resp BP Pulse Ox O2 Del Method O2 Flow Rate 97.5 F L 79 18 101/64 L 96 Room Air 1 09/22/22 04:00 09/22/22 04:00 09/22/22 04:00 09/22/22 04:00 09/22/22 04:00 09/22/22 04:00 09/21/22 11:58 Laboratory Results - last 24 hr 09/21/22 12:17: POC Glucose 182 H 09/21/22 13:30: Vancomycin Trough 5.4 09/21/22 17:14: POC Glucose 272 H 09/21/22 18:40: Vancomycin Peak 17.4 09/21/22 20:26: POC Glucose 312 H* 09/22/22 05:30: WBC 6.6 D, RBC 3.43 L, Hgb 9.9 L, Hct 30.3 L, MCV 88.4, MCH 28.8, MCHC 32.6, RDW 13.1, Plt Count 183, MPV 8.3, Neut % (Auto) 73.5, Lymph % (Auto) 20.3, [place] % (Auto) 4.4, Eos % (Auto) 1.5, Baso % (Auto) 0.3, Neut # (Auto) 4.9, Lymph # (Auto) 1.3, [place] # (Auto) 0.3, Eos # (Auto) 0.1, Baso # (Auto) 0.0, Sodium 138, Potassium 4.4 D, Chloride 111 H, Carbon Dioxide 22, Anion Gap 9.4, BUN 10, Creatinine 0.60 D, Estimated Creat Clear 125, Estimated GFR 115, Est GFR ( Amer) 139 D, Glucose 248 H, Calcium 8.3 L, Magnesium 2.1 D I & O for Last 24 hours: Intake & Output 09/19/22 09/20/22 09/21/22 09/22/22 11:59 11:59 11:59 11:59 Intake Total 180 / 180 2840 / 2840 240 / 240 Output Total 0 / 0 0 / 0 300 / 300 Balance 180 / 180 2840 / 2840 -60 / -60 Weight 286 lb 4.8 oz 312 lb 322 lb 2 oz Microbiology Reports for the Last 24 Hours: Microbiology 09/19/22 23:15 Blood Blood Culture - Preliminary NO GROWTH AFTER 48 HOURS 09/19/22 23:20 Blood Blood Culture - Preliminary NO GROWTH AFTER 48 HOURS 09/21/22 11:33 Breast,Left - Abscess Gram Stain - Final Constitutional Constitutional: no acute distress Routine Chest/Breast/Axilla Exam Comments: Packing in place. Less erythematous blush. *Routine Respiratory Exam Respiratory: Absent respiratory distress *Routine Cardiovascular Exam Cardiovascular: Absent tachycardia Progress Note: A&P Assessment and plan (1) Left breast abscess: Status: Acute Assessment and plan: Overall, doing well status post incision and drainage of postoperative left breast abscess. Continue antibiotics Dressing changes (2) Morbid obesity with BMI of 40.0-44.9, adult: Status: Acute
--- NOTE | 2022-09-22 08:29 | P.PNANES_ITS ---
[facility] Anesthesia Record Part II Anesthesia Record Part II Discharge Time: 12:18 Destination: Medical Surgical Department PACU nurse assessment reviewed?: Yes Patient Condition:: Good Anesthesia Complications:: None Swallowing reflex intact?: Yes Cyanosis?: No Blood Pressure: 149/68 Pulse Rate: 105 Temperature: 98.2 F Mental Status: Alert & Oriented Pain level:: 0 Nausea and/or vomitting:: None Intake, IV Amount: 0
--- NOTE | 2022-09-22 08:48 | EXP.PHA.PN ---
Subjective *Date: 09/22/22 *Time: 08:48 Medical Exam Vital signs and Labs for Last 24 Hours: Vital Signs Temp Pulse Pulse Resp BP BP Pulse Ox 09/22/22 08:40 09/22/22 08:00 97.6 F 90 20 122/59 L 99 09/22/22 08:00 09/22/22 07:00 09/22/22 05:00 09/22/22 03:00 09/22/22 01:00 09/22/22 04:00 97.5 F L 79 18 101/64 L 96 09/22/22 00:00 97.4 F L 80 18 98/58 L 97 09/21/22 23:00 09/21/22 20:00 97.7 F 100 H 20 146/94 H 99 09/21/22 21:00 09/21/22 21:44 09/21/22 18:52 09/21/22 18:50 98.2 F 78 17 120/79 99 09/21/22 17:50 98.2 F 89 18 123/81 99 09/21/22 16:50 98.1 F 100 H 19 128/76 98 09/21/22 15:50 98.3 F 95 H 20 132/81 96 09/21/22 14:50 98.0 F 101 H 19 126/73 99 09/21/22 14:20 97.9 F 93 H 18 142/76 H 98 09/21/22 13:50 98.1 F 100 H 20 138/73 97 09/21/22 13:20 98.0 F 108 H 20 122/74 96 09/21/22 13:05 98.2 F 115 H 19 118/68 100 09/21/22 12:50 98.1 F 102 H 20 118/73 100 09/21/22 12:35 98.3 F 102 H 20 115/76 99 09/21/22 12:20 98.3 F 109 H 20 152/86 H 100 09/21/22 12:18 105 H 12 149/68 H 98 09/21/22 12:08 103 H 14 132/49 L 99 09/21/22 11:58 107 H 18 122/73 96 09/21/22 11:48 98.2 F 112 H 14 142/93 H 91 L 09/21/22 11:58 98.3 F 118 H 22 142/93 H O2 Del Method O2 Flow Rate 09/22/22 08:40 Room Air 09/22/22 08:00 Room Air 09/22/22 08:00 Room Air 09/22/22 07:00 Room Air 09/22/22 05:00 Room Air 09/22/22 03:00 Room Air 09/22/22 01:00 Room Air 09/22/22 04:00 Room Air 09/22/22 00:00 Room Air 09/21/22 23:00 Room Air 09/21/22 20:00 Room Air 09/21/22 21:00 Room Air 09/21/22 21:44 Room Air 09/21/22 18:52 Room Air 09/21/22 18:50 Room Air 09/21/22 17:50 Room Air 09/21/22 16:50 Room Air 09/21/22 15:50 Room Air 09/21/22 14:50 Room Air 09/21/22 14:20 Room Air 09/21/22 13:50 Room Air 09/21/22 13:20 Room Air 09/21/22 13:05 Room Air 09/21/22 12:50 Room Air 09/21/22 12:35 Room Air 09/21/22 12:20 Room Air 09/21/22 12:18 Room Air 09/21/22 12:08 Room Air 09/21/22 11:58 Nasal Cannula 1 09/21/22 11:48 Nasal Cannula 2 09/21/22 11:58 Intake and Output 09/21/22 09/22/22 09/22/22 23:59 07:59 15:59 Intake Total 480 / 480 Output Total 300 / 300 Balance -300 / 2180 480 / 480 Intake: Intake, Oral Amount 480 / 480 Intake, Total IV Amount 0 / 0 Output: Output, Urine Amount 300 / 300 Other: Number of Unmeasured Voids 1 Weight 146.113 kg Patient Weight 09/22/22 23:59 Weight 146.113 kg Laboratory Results - last 24 hr 09/21/22 12:17: POC Glucose 182 H 09/21/22 13:30: Vancomycin Trough 5.4 09/21/22 17:14: POC Glucose 272 H 09/21/22 18:40: Vancomycin Peak 17.4 09/21/22 20:26: POC Glucose 312 H* 09/22/22 05:30: WBC 6.6 D, RBC 3.43 L, Hgb 9.9 L, Hct 30.3 L, MCV 88.4, MCH 28.8, MCHC 32.6, RDW 13.1, Plt Count 183, MPV 8.3, Neut % (Auto) 73.5, Lymph % (Auto) 20.3, [place] % (Auto) 4.4, Eos % (Auto) 1.5, Baso % (Auto) 0.3, Neut # (Auto) 4.9, Lymph # (Auto) 1.3, [place] # (Auto) 0.3, Eos # (Auto) 0.1, Baso # (Auto) 0.0, Sodium 138, Potassium 4.4 D, Chloride 111 H, Carbon Dioxide 22, Anion Gap 9.4, BUN 10, Creatinine 0.60 D, Estimated Creat Clear 125, Estimated GFR 115, Est GFR ( Amer) 139 D, Glucose 248 H, Calcium 8.3 L, Magnesium 2.1 D I & O for Labs for Last 24 Hours: Intake & Output 09/19/22 09/20/22 09/21/22 09/22/22 23:59 23:59 23:59 23:59 Intake Total 780 / 780 2480 / 2480 480 / 480 Output Total 0 / 0 300 / 300 Balance 780 / 780 2180 / 2180 480 / 480 Weight 131.088 kg 129.863 kg 141.521 kg 146.113 kg Microbiology Reports for the Last 24 Hours: Microbiology 09/19/22 23:15 Blood Blood Culture - Preliminary NO GROWTH AFTER 48 HOURS 09/19/22 23:20 Blood Blood C
[2022-09-22 11:11] LABS: POC Glucose,Bedside 277 (70-110)
[2022-09-22 11:15] LABS: Hemoglobin A1C 6.8 % (4.0-6.0)
--- NOTE | 2022-09-22 12:45 | EXP.PN ---
Subjective *Date: 09/22/22 *Time: 12:45 Interval history: She has had intermittent nausea and has had pain at the left breast Exam Data for Last 24 hours Vital signs and Labs for Last 24 Hours: Temp Pulse Resp BP Pulse Ox O2 Del Method O2 Flow Rate 97.6 F 81 16 152/82 H 99 Room Air 1 09/22/22 11:53 09/22/22 11:53 09/22/22 11:53 09/22/22 11:53 09/22/22 11:53 09/22/22 11:53 09/21/22 11:58 Laboratory Results - last 24 hr 09/21/22 13:30: Vancomycin Trough 5.4 09/21/22 17:14: POC Glucose 272 H 09/21/22 18:40: Vancomycin Peak 17.4 09/21/22 20:26: POC Glucose 312 H* 09/22/22 05:30: WBC 6.6 D, RBC 3.43 L, Hgb 9.9 L, Hct 30.3 L, MCV 88.4, MCH 28.8, MCHC 32.6, RDW 13.1, Plt Count 183, MPV 8.3, Neut % (Auto) 73.5, Lymph % (Auto) 20.3, [place] % (Auto) 4.4, Eos % (Auto) 1.5, Baso % (Auto) 0.3, Neut # (Auto) 4.9, Lymph # (Auto) 1.3, [place] # (Auto) 0.3, Eos # (Auto) 0.1, Baso # (Auto) 0.0, Sodium 138, Potassium 4.4 D, Chloride 111 H, Carbon Dioxide 22, Anion Gap 9.4, BUN 10, Creatinine 0.60 D, Estimated Creat Clear 125, Estimated GFR 115, Est GFR ( Amer) 139 D, Glucose 248 H, Hemoglobin A1c 6.8 H, Calcium 8.3 L, Magnesium 2.1 D 09/22/22 10:57: POC Glucose 277 H I & O for Last 24 hours: Intake & Output 09/19/22 09/20/22 09/21/22 09/22/22 23:59 23:59 23:59 23:59 Intake Total 780 / 780 2480 / 2480 960 / 960 Output Total 0 / 0 300 / 300 Balance 780 / 780 2180 / 2180 960 / 960 Weight 131.088 kg 129.863 kg 141.521 kg 146.113 kg Microbiology Reports for the Last 24 Hours: Microbiology 09/19/22 23:15 Blood Blood Culture - Preliminary NO GROWTH AFTER 48 HOURS 09/19/22 23:20 Blood Blood Culture - Preliminary NO GROWTH AFTER 48 HOURS 09/21/22 11:33 Breast,Left - Abscess Gram Stain - Final Constitutional Constitutional: no acute distress *Routine HEENT Exam Head: Present normocephalic Eye: Present EOMI and PERRL ENT: Present mucous membranes moist *Routine Neck Exam Neck: Present supple; Absent lymphadenopathy Routine Chest/Breast/Axilla Exam Comments: left breast with dressing c/d/i *Routine Respiratory Exam Respiratory: Present CTA bilaterally *Routine Cardiovascular Exam Cardiovascular: Present RRR *Routine Abdominal Exam Abdominal: Present soft and normoactive bowel sounds; Absent tenderness *Routine Extremities Exam Extremities: Absent cyanosis, clubbing or edema *Routine Skin Exam Skin: Present warm; Absent rash *Routine Neurological Exam Neurological: Present alert and oriented X3 Assessment and Plan *Assessment and plan (1) Left breast abscess: Status: Acute Category: Medical Code(s): N61.1 - Abscess of the breast and nipple (2) Sepsis: Status: Acute Qualifiers: Sepsis acute organ dysfunction status: with acute organ dysfunction Sepsis type: sepsis due to unspecified organism Severe sepsis acute organ dysfunction type: unspecified Severe sepsis shock status: without septic shock Qualified Code(s): A41.9 - Sepsis, unspecified organism; R65.20 - Severe sepsis without septic shock Category: Medical Code(s): A41.9 - Sepsis, unspecified organism (3) DM2 (diabetes mellitus, type 2): Status: Acute Qualifiers: Diabetes mellitus alf insulin use: without terminal operations supervisor use Diabetes mellitus complication status: with hyperglycemia Qualified Code(s): E11.65 - Type 2 diabetes mellitus with hyperglycemia Category: Medical Code(s): E11.9 - Type 2 diabetes mellitus without complications (4) HTN (hypertension): Status: Acute Qualifiers: Hypertension type: unspecified Qualified Code(s): I10 - Essential (primary) hypertension Category: Medical Code(s): I10 - Essential (primary) hypertension (5) Bipolar disorder: Status: Acute Qualifiers: Active/Remission status: remission status un
[2022-09-22 16:04] LABS: POC Glucose,Bedside 306 (70-110)
[2022-09-22 16:11] LABS: Vancomycin,Trough 9.4 ug/mL (5.0-10.0)
--- NOTE | 2022-09-22 17:34 | PC.NURSE ---
A&OX4. TOLERATING RA WELL. PT HAS C/O INTERMITTENT L BREAST PAIN AND GENERALIZED PAIN. TX PER APR. EFFECTIVENESS NOTED. PT HAS HAD FAMILY VISITING THIS SHIFT. HAS BEEN UP TO BATHROOM, GAVE HERSELF A BATH. TOLERATED DRESSING CHANGE WELL. REMOVED DRESSING DID HAVE SEROSANG AND SLIGHT PURULENT DRAINAGE ON THE END. BREAST STILL HAS REDNESS NOTED. NO OTHER NEEDS OR C/O THIS SHIFT. RECEIVING FLUIDS AND IV ABX PER APR. VSS.
[2022-09-23] VITALS: BP 118/65; PULSE 86; RESP 18; TEMP 36.4; O2SAT 99
[2022-09-23 01:18] LABS: POC Glucose,Bedside 229 (70-110)
[2022-09-23 04:00] VITALS: BP 116/59; PULSE 80; RESP 18; TEMP 36.7; O2SAT 97; BMI 53.7
[2022-09-23 06:25] LABS: Chloride 110 mmol/L (98-107); Potassium 3.9 mmoL/L (3.5-5.1); Sodium 139 mmol/L (136-145)
[2022-09-23 06:28] LABS: Anion Gap 9.9 mEq/L (5-15); Blood Urea Nitrogen 10 mg/dl (7-17); Carbon Dioxide 23 mmol/L (22.0-30.0); Creatinine Clearance Estimated 125 mL/min (50-200); Estimated Glomerular Filt Rate 115 ml/min (>60); GFR (African American) 139 ML/MIN (>60)
[2022-09-23 06:29] LABS: Calcium 8.2 mg/dl (8.4-10.2); Glucose 168 mg/dl (74-100)
[2022-09-23 06:30] LABS: Basophils % 0.6 % (0.1-2.0); Eosinophils # 0.2 K/mm3 (0.0-0.4); Eosinophils % 3.8 % (0.1-12.0); Hematocrit 32.9 % (37.0-47.0); Hemoglobin 10.3 g/dL (12.2-16.2); Lymphocytes # 2.2 K/mm3 (0.7-4.5); Lymphocytes % 41.5 % (10-50); Mean Corpuscular HGB Conc 31.2 g/dL (31.8-35.4); Mean Corpuscular Hemoglobin 28.1 pg (27.0-31.2); Mean Corpuscular Volume 90.2 fl (81-99); Mean Platelet Volume 8.5 fl (7.4-10.4); Monocytes # 0.2 K/mm3 (0.1-1.0); Monocytes % 4.4 % (1.7-9.3); Neutrophils # 2.6 K/mm3 (1.8-7.8); Neutrophils % 49.8 % (37.0-80.0); Platelet Count 278 K/mm3 (142-424); Red Blood Count 3.65 M/mm3 (4.20-5.40); Red Cell Distribution Width 13.2 % (11.5-17.5); White Blood Count 5.2 K/mm3 (4.8-10.8)
[2022-09-23 07:06] LABS: POC Glucose,Bedside 160 (70-110)
[2022-09-23 08:00] VITALS: BP 158/83; PULSE 99; RESP 20; TEMP 36.7; O2SAT 99
--- NOTE | 2022-09-23 08:08 | EXP.SURG.PN ---
Subjective Patient reports: no new complaints Exam Data for Last 24 hours Vital signs and Labs for Last 24 Hours: Temp Pulse Resp BP Pulse Ox O2 Del Method O2 Flow Rate 98.0 F 80 18 116/59 L 97 Room Air 1 09/23/22 04:00 09/23/22 04:00 09/23/22 04:00 09/23/22 04:00 09/23/22 04:00 09/23/22 05:00 09/21/22 11:58 Laboratory Results - last 24 hr 09/22/22 05:30: Hemoglobin A1c 6.8 H 09/22/22 10:57: POC Glucose 277 H 09/22/22 14:50: Vancomycin Trough 9.4 09/22/22 15:50: POC Glucose 306 H* 09/22/22 19:50: POC Glucose 229 H 09/23/22 05:36: WBC 5.2, RBC 3.65 L, Hgb 10.3 L, Hct 32.9 L, MCV 90.2, MCH 28.1, MCHC 31.2 L, RDW 13.2, Plt Count 278 D, MPV 8.5, Neut % (Auto) 49.8, Lymph % (Auto) 41.5, [place] % (Auto) 4.4, Eos % (Auto) 3.8, Baso % (Auto) 0.6, Neut # (Auto) 2.6, Lymph # (Auto) 2.2, [place] # (Auto) 0.2, Eos # (Auto) 0.2, Baso # (Auto) 0.0, Sodium 139, Potassium 3.9, Chloride 110 H, Carbon Dioxide 23, Anion Gap 9.9, BUN 10, Creatinine 0.60, Estimated Creat Clear 125, Estimated GFR 115, Est GFR ( Amer) 139, Glucose 168 H, Calcium 8.2 L 09/23/22 06:09: POC Glucose 160 H I & O for Last 24 hours: Intake & Output 09/20/22 09/21/22 09/22/22 09/23/22 11:59 11:59 11:59 11:59 Intake Total 180 / 180 2840 / 2840 720 / 720 960 / 960 Output Total 0 / 0 0 / 0 300 / 300 0 / 0 Balance 180 / 180 2840 / 2840 420 / 420 960 / 960 Weight 286 lb 4.8 oz 312 lb 322 lb 2 oz 334 lb 7 oz Microbiology Reports for the Last 24 Hours: Microbiology 09/21/22 11:33 Breast,Left - Abscess Gram Stain - Final 09/21/22 11:33 Breast,Left - Abscess Abscess Culture - Preliminary Gram Positive Cocci Constitutional Constitutional: no acute distress Routine Chest/Breast/Axilla Exam Comments: Left breast packing in place. No spreading cellulitis. *Routine Respiratory Exam Respiratory: Absent respiratory distress *Routine Cardiovascular Exam Cardiovascular: Absent tachycardia Progress Note: A&P Assessment and plan (1) Left breast abscess: Status: Acute Assessment and plan: Overall, doing well status post incision and drainage. Continue dry dressing changes Likely discharge home soon once dressing change arrangements completed Okay from surgical standpoint to convert to PO antibiotics with completion of short course at home (2) Morbid obesity with BMI of 40.0-44.9, adult: Status: Acute
--- NOTE | 2022-09-23 08:40 | P.PN_ITS ---
Subjective *Date: 09/23/22 *Time: 08:40 Medical Exam Vital signs and Labs for Last 24 Hours: Vital Signs Temp Pulse Resp BP Pulse Ox O2 Del Method 09/23/22 04:00 98.0 F 80 18 116/59 L 97 Room Air 09/23/22 03:00 Room Air 09/23/22 01:00 Room Air 09/23/22 05:00 Room Air 09/22/22 23:00 Room Air 09/23/22 00:00 97.6 F 86 18 118/65 99 Room Air 09/22/22 20:00 Room Air 09/22/22 21:00 Room Air 09/22/22 20:00 98.6 F 86 18 142/97 H 100 Room Air 09/22/22 18:32 Room Air 09/22/22 16:47 Room Air 09/22/22 16:00 97.5 F L 91 H 18 144/88 H 99 Room Air 09/22/22 14:37 Room Air 09/22/22 13:00 Room Air 09/22/22 11:53 97.6 F 81 16 152/82 H 99 Room Air 09/22/22 10:33 Room Air Intake and Output 09/22/22 09/23/22 09/23/22 23:59 07:59 15:59 Intake Total 480 / 1440 Output Total 0 / 0 0 / 0 Balance 480 / 1440 0 / 0 Intake: Intake, Oral Amount 480 / 1440 Output: Output, Urine Amount 0 / 0 0 / 0 Other: Number of Unmeasured Voids 1 1 Number of Bowel Movements 1 Weight 151.698 kg Patient Weight 09/23/22 23:59 Weight 151.698 kg Laboratory Results - last 24 hr 09/22/22 05:30: Hemoglobin A1c 6.8 H 09/22/22 10:57: POC Glucose 277 H 09/22/22 14:50: Vancomycin Trough 9.4 09/22/22 15:50: POC Glucose 306 H* 09/22/22 19:50: POC Glucose 229 H 09/23/22 05:36: WBC 5.2, RBC 3.65 L, Hgb 10.3 L, Hct 32.9 L, MCV 90.2, MCH 28.1, MCHC 31.2 L, RDW 13.2, Plt Count 278 D, MPV 8.5, Neut % (Auto) 49.8, Lymph % (Auto) 41.5, [place] % (Auto) 4.4, Eos % (Auto) 3.8, Baso % (Auto) 0.6, Neut # (Auto) 2.6, Lymph # (Auto) 2.2, [place] # (Auto) 0.2, Eos # (Auto) 0.2, Baso # (Auto) 0.0, Sodium 139, Potassium 3.9, Chloride 110 H, Carbon Dioxide 23, Anion Gap 9.9, BUN 10, Creatinine 0.60, Estimated Creat Clear 125, Estimated GFR 115, Est GFR ( Amer) 139, Glucose 168 H, Calcium 8.2 L 09/23/22 06:09: POC Glucose 160 H I & O for Labs for Last 24 Hours: Intake & Output 09/20/22 09/21/22 09/22/22 09/23/22 23:59 23:59 23:59 23:59 Intake Total 780 / 780 2480 / 2480 1440 / 1440 Output Total 0 / 0 300 / 300 0 / 0 0 / 0 Balance 780 / 780 2180 / 2180 1440 / 1440 0 / 0 Weight 129.863 kg 141.521 kg 146.113 kg 151.698 kg Microbiology Reports for the Last 24 Hours: Microbiology 09/21/22 11:33 Breast,Left - Abscess Gram Stain - Final 09/21/22 11:33 Breast,Left - Abscess Abscess Culture - Preliminary Gram Positive Cocci The patient's infection will respond to the chosen ABx?: Yes Is the patient receiving the right drug, dose, and route?: Yes Could a more targeted ABx be ordered?: No (GRAM + COCCI, WBC WNL, AFEBRILE NOW.)
--- NOTE | 2022-09-23 08:52 | PC.NURSE ---
TECH NOTE; NOTIFIED NURSE OF HEART RATE AND BLOOD PRESSURE FOR 0800 VITAL SIGNS Foreign VARMA, SRNA
[2022-09-23 11:20] VITALS: BMI 53.7
[2022-09-23 12:00] VITALS: BP 135/81; PULSE 87; RESP 18; TEMP 36.8; O2SAT 96
[2022-09-23 12:15] LABS: POC Glucose,Bedside 157 (70-110)
--- NOTE | 2022-09-23 12:55 | CARE MANAGER ---
Addendum entered by Latanya Zhang 09/26/22 11:45: I called and updated patient that her insurance will not cover home health for dressing changes. Patient stated that she has a family member at home to assist her with dressing changes. Original Note: Per Dr. Rogers, patient is medically ready for discharge. Patient stated to Dr. Rogers that she does not feel comfortable going home, as she does not have any help changing her drsg until Monday. Patient has medicaid and therefore we are unable to set her up with services. Dr. Rogers has told the patient that she can stay today and he will reassess tomorrow. CM will continue to follow.
[2022-09-23 16:00] VITALS: BP 146/85; PULSE 74; RESP 16; TEMP 36.8; O2SAT 98
[2022-09-23 16:59] LABS: POC Glucose,Bedside 157 (70-110)
--- NOTE | 2022-09-23 17:22 | EXP.PN ---
Subjective *Date: 09/23/22 *Time: 17:22 Interval history: She continues to have nausea and dizziness pain in her left breast has decreased Exam Data for Last 24 hours Vital signs and Labs for Last 24 Hours: Temp Pulse Resp BP Pulse Ox O2 Del Method O2 Flow Rate 98.3 F 74 16 146/85 H 98 Room Air 1 09/23/22 16:00 09/23/22 16:00 09/23/22 16:00 09/23/22 16:00 09/23/22 16:00 09/23/22 16:00 09/21/22 11:58 Laboratory Results - last 24 hr 09/22/22 19:50: POC Glucose 229 H 09/23/22 05:36: WBC 5.2, RBC 3.65 L, Hgb 10.3 L, Hct 32.9 L, MCV 90.2, MCH 28.1, MCHC 31.2 L, RDW 13.2, Plt Count 278 D, MPV 8.5, Neut % (Auto) 49.8, Lymph % (Auto) 41.5, [place] % (Auto) 4.4, Eos % (Auto) 3.8, Baso % (Auto) 0.6, Neut # (Auto) 2.6, Lymph # (Auto) 2.2, [place] # (Auto) 0.2, Eos # (Auto) 0.2, Baso # (Auto) 0.0, Sodium 139, Potassium 3.9, Chloride 110 H, Carbon Dioxide 23, Anion Gap 9.9, BUN 10, Creatinine 0.60, Estimated Creat Clear 125, Estimated GFR 115, Est GFR ( Amer) 139, Glucose 168 H, Calcium 8.2 L 09/23/22 06:09: POC Glucose 160 H 09/23/22 11:31: POC Glucose 157 H 09/23/22 16:32: POC Glucose 157 H I & O for Last 24 hours: Intake & Output 09/20/22 09/21/22 09/22/22 09/23/22 23:59 23:59 23:59 23:59 Intake Total 780 / 780 2480 / 2480 1440 / 1440 3068 / 3068 Output Total 0 / 0 300 / 300 0 / 0 0 / 0 Balance 780 / 780 2180 / 2180 1440 / 1440 3068 / 3068 Weight 129.863 kg 141.521 kg 146.113 kg 151.698 kg Microbiology Reports for the Last 24 Hours: Microbiology 09/21/22 11:33 Breast,Left - Abscess Gram Stain - Final 09/21/22 11:33 Breast,Left - Abscess Abscess Culture - Preliminary Gram Positive Cocci Constitutional Constitutional: no acute distress *Routine HEENT Exam Head: Present normocephalic Eye: Present EOMI and PERRL ENT: Present mucous membranes moist *Routine Neck Exam Neck: Present supple; Absent lymphadenopathy Routine Chest/Breast/Axilla Exam Comments: left breast with dressing c/d/i *Routine Respiratory Exam Respiratory: Present CTA bilaterally *Routine Cardiovascular Exam Cardiovascular: Present RRR *Routine Abdominal Exam Abdominal: Present soft and normoactive bowel sounds; Absent tenderness *Routine Extremities Exam Extremities: Absent cyanosis, clubbing or edema *Routine Skin Exam Skin: Present warm; Absent rash *Routine Neurological Exam Neurological: Present alert and oriented X3 Assessment and Plan *Assessment and plan (1) Left breast abscess: Status: Acute Category: Medical Code(s): N61.1 - Abscess of the breast and nipple (2) Sepsis: Status: Acute Qualifiers: Sepsis acute organ dysfunction status: with acute organ dysfunction Sepsis type: sepsis due to unspecified organism Severe sepsis acute organ dysfunction type: unspecified Severe sepsis shock status: without septic shock Qualified Code(s): A41.9 - Sepsis, unspecified organism; R65.20 - Severe sepsis without septic shock Category: Medical Code(s): A41.9 - Sepsis, unspecified organism (3) DM2 (diabetes mellitus, type 2): Status: Acute Qualifiers: Diabetes mellitus intermediate manager insulin use: without intermediate manager use Diabetes mellitus complication status: with hyperglycemia Qualified Code(s): E11.65 - Type 2 diabetes mellitus with hyperglycemia Category: Medical Code(s): E11.9 - Type 2 diabetes mellitus without complications (4) HTN (hypertension): Status: Acute Qualifiers: Hypertension type: unspecified Qualified Code(s): I10 - Essential (primary) hypertension Category: Medical Code(s): I10 - Essential (primary) hypertension (5) Bipolar disorder: Status: Acute Qualifiers: Active/Remission status: remission status unspecified Qualified Code(s): F31.9 - Bipolar disorder, unspecified Category: Medical Code(s): F31.9 - Bipolar disorder,
[2022-09-23 19:57] VITALS: BP 134/79; PULSE 108; RESP 20; TEMP 37.1; O2SAT 97
[2022-09-23 20:41] LABS: POC Glucose,Bedside 179 (70-110)
[2022-09-24] VITALS (7 sets, daily range): BP systolic 100–155; BP diastolic 54–90; PULSE 65–92; RESP 18–22; TEMP 36.7–37.1; O2SAT 97–98; BMI 50.5
[2022-09-24 05:58] LABS: POC Glucose,Bedside 140 (70-110)
--- NOTE | 2022-09-24 06:01 | PC.NURSE ---
Pt medicated PRN per APR for N/V and pain this shift. Pt had 3 episodes of vomiting this shift. Dressing change to left breast changed and packed 09/23 @2200. Serosanguineous drainage and purulent drainage noted. Pt tolerated dressing change fair. Pt ambulated to independently and tolerated well.
--- NOTE | 2022-09-24 08:29 | EXP.SURG.PN ---
Subjective Patient reports: no new complaints Exam Data for Last 24 hours Vital signs and Labs for Last 24 Hours: Temp Pulse Resp BP Pulse Ox O2 Del Method O2 Flow Rate 98.7 F 90 20 155/88 H 98 Room Air 1 09/24/22 07:33 09/24/22 07:33 09/24/22 07:33 09/24/22 07:33 09/24/22 07:33 09/24/22 07:33 09/21/22 11:58 Laboratory Results - last 24 hr 09/23/22 11:31: POC Glucose 157 H 09/23/22 16:32: POC Glucose 157 H 09/23/22 20:03: POC Glucose 179 H 09/24/22 05:38: POC Glucose 140 H I & O for Last 24 hours: Intake & Output 09/21/22 09/22/22 09/23/22 09/24/22 11:59 11:59 11:59 11:59 Intake Total 2840 / 2840 720 / 720 1080 / 1080 3538 / 3538 Output Total 0 / 0 300 / 300 0 / 0 0 / 0 Balance 2840 / 2840 420 / 420 1080 / 1080 3538 / 3538 Weight 312 lb 322 lb 2 oz 334 lb 6.989 oz 314 lb 6.4 oz Microbiology Reports for the Last 24 Hours: Microbiology 09/21/22 11:33 Breast,Left - Abscess Gram Stain - Final 09/21/22 11:33 Breast,Left - Abscess Abscess Culture - Final Staphylococcus aureus Note: Oxacillin sensitive Constitutional Constitutional: no acute distress Routine Chest/Breast/Axilla Exam Comments: Left breast wound margin clean. No spreading cellulitis *Routine Respiratory Exam Respiratory: Absent respiratory distress *Routine Cardiovascular Exam Cardiovascular: Absent tachycardia Progress Note: A&P Assessment and plan (1) Left breast abscess: Status: Acute Assessment and plan: MSSA per culture Continue dressing changes Antibiotics to be tailored by primary service Okay from surgical standpoint for discharge home with close outpatient follow-up once dressing change arrangements completed (2) Morbid obesity with BMI of 40.0-44.9, adult: Status: Acute
--- NOTE | 2022-09-24 11:43 | EXP.PHA.CONS ---
Pharmacy Consult Date: 09/24/22 Time: 11:43 Referring provider: DR ALBARRAN Reason for Consult:: VANCOMYCIN TROUGH LEVEL OBTAINED Allergies Allergy/AdvReac Type Severity Reaction Status Date / Time amoxicillin Allergy Verified 09/09/22 09:20 silver Allergy Rash Verified 09/09/22 09:20 [From Tegaderm AG Mesh] venom-honey bee Allergy Unknown Verified 09/09/22 09:20 allergy reaction venom-wasp protein Allergy Unknown Verified 09/09/22 09:20 allergy reaction Home Medications Medication Instructions Recorded Confirmed Type metformin 1,000 mg tablet 1,000 mg PO BID Diabetes 04/26/22 09/20/22 History lisinopril 20 mg tablet 20 mg PO DAILY Blood pressure 07/19/22 09/20/22 History prazosin 2 mg capsule 2 mg PO HS Nightmares 07/19/22 09/20/22 History propranolol 20 mg tablet 20 mg PO BID Blood pressure 07/19/22 09/20/22 History hydrochlorothiazide 12.5 mg tablet 12.5 mg PO DAILY Diuretic 09/01/22 09/20/22 History topiramate 50 mg tablet (Topamax) 50 mg PO HS nightmares 09/01/22 09/20/22 History ondansetron 4 mg disintegrating 4 mg PO Q8H PRN nausea and 09/03/22 09/20/22 Rx tablet vomiting 4 days #16 tabs cariprazine 3 mg capsule (Vraylar) 3 mg PO DAILY mood 09/20/22 09/20/22 History lamotrigine 200 mg tablet 200 mg PO DAILY mood 09/20/22 09/20/22 History pantoprazole 40 mg tablet,delayed 40 mg PO DAILY Acid Reflux 09/20/22 09/20/22 History release (Protonix) quetiapine 25 mg tablet 25 mg PO HS Sleep 09/20/22 09/20/22 History sulfamethoxazole 800 1 tab PO BID Infection 09/20/22 09/20/22 History mg-trimethoprim 160 mg tablet New Prescriptions to Start Prescriptions: Height: 1.68 m Weight: 142.609 kg Laboratory Results:: Laboratory Results - last 24 hr 09/23/22 11:31: POC Glucose 157 H 09/23/22 16:32: POC Glucose 157 H 09/23/22 20:03: POC Glucose 179 H 09/24/22 05:38: POC Glucose 140 H 09/24/22 10:40: Vancomycin Trough 10.0 Medical History: Medical History (Updated 09/20/22 @ 02:12 by Tan Flores APRN) Abnormal electrocardiogram [ECG] [EKG] Chest pain Dizziness DM2 (diabetes mellitus, type 2) Dyspnea Edema of both lower extremities Esophageal cancer HTN (hypertension) Palpitations Sinus tachycardia Assessment and Plan Assessment and plan all Dx Assessment and Plan for all problems:: VANCOMYCIN TROUGH LEVEL OBTAINED OF 10.0 MCG/ML (09/24/22 10:40). RECOMMEND CONTINUING CURRENT REGIMEN OF VANCOMYCIN 2500 MG Q12H.
[2022-09-24 12:13] LABS: POC Glucose,Bedside 170 (70-110)
--- NOTE | 2022-09-24 12:58 | EXP.PN ---
Subjective *Date: 09/24/22 *Time: 12:58 Interval history: No acute events overnight continues to have pain and nausea but overall feels better Exam Data for Last 24 hours Vital signs and Labs for Last 24 Hours: Temp Pulse Resp BP Pulse Ox O2 Del Method O2 Flow Rate 98.2 F 89 19 133/80 97 Room Air 1 09/24/22 11:23 09/24/22 11:23 09/24/22 11:23 09/24/22 11:23 09/24/22 11:23 09/24/22 11:23 09/21/22 11:58 Laboratory Results - last 24 hr 09/23/22 16:32: POC Glucose 157 H 09/23/22 20:03: POC Glucose 179 H 09/24/22 05:38: POC Glucose 140 H 09/24/22 10:40: Vancomycin Trough 10.0 09/24/22 11:02: POC Glucose 170 H I & O for Last 24 hours: Intake & Output 09/21/22 09/22/22 09/23/22 09/24/22 23:59 23:59 23:59 23:59 Intake Total 2480 / 2480 1440 / 1440 3308 / 3308 950 / 950 Output Total 300 / 300 0 / 0 0 / 0 0 / 0 Balance 2180 / 2180 1440 / 1440 3308 / 3308 950 / 950 Weight 141.521 kg 146.113 kg 151.698 kg 142.609 kg Microbiology Reports for the Last 24 Hours: Microbiology 09/21/22 11:33 Breast,Left - Abscess Gram Stain - Final 09/21/22 11:33 Breast,Left - Abscess Abscess Culture - Final Staphylococcus aureus Constitutional Constitutional: no acute distress *Routine HEENT Exam Head: Present normocephalic Eye: Present EOMI and PERRL ENT: Present mucous membranes moist *Routine Neck Exam Neck: Present supple; Absent lymphadenopathy Routine Chest/Breast/Axilla Exam Comments: left breast with dressing c/d/i *Routine Respiratory Exam Respiratory: Present CTA bilaterally *Routine Cardiovascular Exam Cardiovascular: Present RRR *Routine Abdominal Exam Abdominal: Present soft and normoactive bowel sounds; Absent tenderness *Routine Extremities Exam Extremities: Absent cyanosis, clubbing or edema *Routine Skin Exam Skin: Present warm; Absent rash *Routine Neurological Exam Neurological: Present alert and oriented X3 Assessment and Plan *Assessment and plan (1) Left breast abscess: Status: Acute Category: Medical Code(s): N61.1 - Abscess of the breast and nipple (2) Sepsis: Status: Acute Qualifiers: Sepsis acute organ dysfunction status: with acute organ dysfunction Sepsis type: sepsis due to unspecified organism Severe sepsis acute organ dysfunction type: unspecified Severe sepsis shock status: without septic shock Qualified Code(s): A41.9 - Sepsis, unspecified organism; R65.20 - Severe sepsis without septic shock Category: Medical Code(s): A41.9 - Sepsis, unspecified organism (3) DM2 (diabetes mellitus, type 2): Status: Acute Qualifiers: Diabetes mellitus snf insulin use: without technician terminal and repeater use Diabetes mellitus complication status: with hyperglycemia Qualified Code(s): E11.65 - Type 2 diabetes mellitus with hyperglycemia Category: Medical Code(s): E11.9 - Type 2 diabetes mellitus without complications (4) HTN (hypertension): Status: Acute Qualifiers: Hypertension type: unspecified Qualified Code(s): I10 - Essential (primary) hypertension Category: Medical Code(s): I10 - Essential (primary) hypertension (5) Bipolar disorder: Status: Acute Qualifiers: Active/Remission status: remission status unspecified Qualified Code(s): F31.9 - Bipolar disorder, unspecified Category: Medical Code(s): F31.9 - Bipolar disorder, unspecified (6) Morbid obesity with BMI of 40.0-44.9, adult: Status: Acute Category: Medical Code(s): E66.01 - Morbid (severe) obesity due to excess calories; Z68.41 - Body mass index [BMI] 40.0-44.9, adult Plan #sepsis #left breast abscess #morbid obesity #diabetes mellitus #hypertension abscess culture is growing mssa. start cephalexain. stop iv vanc, cefepime and flagyl continue treating nausea and pain as needed plan to d/c home tomorrow when parent
[2022-09-24 16:34] LABS: POC Glucose,Bedside 171 (70-110)
[2022-09-24 21:11] LABS: POC Glucose,Bedside 198 (70-110)
[2022-09-25 04:00] VITALS: BP 122/69; PULSE 76; RESP 20; TEMP 36.6; O2SAT 98; BMI 50.8
--- NOTE | 2022-09-25 06:34 | PC.NURSE ---
Pt medicated PRN per APR for pain this shift. Pt has had no other complaints. States overall feeling better. Left breast wound noted to have large amount of drainage @ 0600 this morning. Wound re-packed, and dressing changed.
[2022-09-25 07:06] LABS: POC Glucose,Bedside 216 (70-110)
[2022-09-25 08:00] VITALS: BP 143/93; PULSE 96; RESP 19; TEMP 36.4; O2SAT 97
[2022-09-25 08:01] LABS: Basophils % 0.4 % (0.1-2.0); Eosinophils # 0.3 K/mm3 (0.0-0.4); Eosinophils % 5.1 % (0.1-12.0); Hematocrit 32.9 % (37.0-47.0); Hemoglobin 10.6 g/dL (12.2-16.2); Lymphocytes # 1.5 K/mm3 (0.7-4.5); Lymphocytes % 26.8 % (10-50); Mean Corpuscular HGB Conc 32.1 g/dL (31.8-35.4); Mean Corpuscular Hemoglobin 28.9 pg (27.0-31.2); Mean Platelet Volume 8.7 fl (7.4-10.4); Monocytes # 0.3 K/mm3 (0.1-1.0); Monocytes % 5.5 % (1.7-9.3); Neutrophils # 3.5 K/mm3 (1.8-7.8); Neutrophils % 62.2 % (37.0-80.0); Platelet Count 315 K/mm3 (142-424); Red Blood Count 3.66 M/mm3 (4.20-5.40); Red Cell Distribution Width 13.1 % (11.5-17.5); White Blood Count 5.7 K/mm3 (4.8-10.8)
[2022-09-25 08:09] LABS: Anion Gap 12.6 mEq/L (5-15); Blood Urea Nitrogen 6 mg/dl (7-17); Calcium 8.2 mg/dl (8.4-10.2); Carbon Dioxide 20 mmol/L (22.0-30.0); Chloride 109 mmol/L (98-107); Creatinine Clearance Estimated 125 mL/min (50-200); Estimated Glomerular Filt Rate 115 ml/min (>60); GFR (African American) 139 ML/MIN (>60); Glucose 209 mg/dl (74-100); Potassium 3.6 mmoL/L (3.5-5.1); Sodium 138 mmol/L (136-145)
--- NOTE | 2022-09-25 09:04 | EXP.DC.SUM ---
General Admission date:: 09/20/22 Discharge date: 09/25/22 HPI HPI HPI: Forwarded from admission H&P: This is a 31-year-old female morbidly obese with past medical history of diabetes [id number], hypertension, bilateral fibrocystic breast changes, with cyst along inferior lateral right breast margin/ridge s/p surgical resection back on 05/12. then recently same procedure on the left side this month. pt here for post op complication of her left breast performed by Dr Brannon on September 01 . She states he removed some lumps and cauterized her milk glands d/t bleeding. States her breast is too painful to touch and pain is radiating into her armpit. Pt states she was running a fever and took tylenol, began vomiting, and became dizzy. States she called the telephone answerer office and Dr Gama advised her to come to ER. Admitted for further treatment and management. Hospital Course Hospital Course Hospital Course: #sepsis #left breast abscess #morbid obesity #diabetes mellitus #hypertension Chest CTA 09/20/22: IMPRESSION: 1. No findings of acute pulmonary embolism. Main pulmonary artery trunk is mildly enlarged, unchanged from prior. Chronic PA hypertension is not excluded. 2. Interval development of extensive increased attenuation throughout the left breast with cutaneous thickening, concerning for infection or inflammation. 3. Small sliding hiatal hernia. 4. Fatty change of the left ventricular apex is concerning for prior infarction. The patient had an inicision and drainage of her left breast abscess. 400mL of cloudy/thin purulent fluid was evacuated. The patient received vancomycin/cefepime/flagyl throughout most of the hospital course until abscess cultures grew MSSA; at which point antibiotics were changed to cephalexin. She is to take 7 more days of cephalexin to complete 13 days of antibiotics. Blood cultures had no growth after 5 days. She will need to pack her wound daily with kerlix moistened with sterile saline, and covered daily with an abd pad and perforated tape. One week of supplies were provided. She will discharge home and will need home health services for wound care, pt and ot. Her blood pressure medications were held throughout the hospital course and yet she intermittently had borderline low blood pressures so her propranolol, lisinopril and hctz was held when she was discharged; to be re-addressed when she sees her PCP in 1 week. She will need to f/u with General Surgery in 1 week. She was provided a work release form and is to return to work on 10/03/22. Exam Data for Last 24 hours Vital signs and Labs for Last 24 Hours: Temp Pulse Resp BP Pulse Ox O2 Del Method O2 Flow Rate 97.6 F 96 H 19 143/93 H 97 Room Air 1 09/25/22 08:00 09/25/22 08:00 09/25/22 08:00 09/25/22 08:00 09/25/22 08:00 09/25/22 08:00 09/21/22 11:58 Laboratory Results - last 24 hr 09/24/22 10:40: Vancomycin Trough 10.0 09/24/22 11:02: POC Glucose 170 H 09/24/22 16:09: POC Glucose 171 H 09/24/22 20:58: POC Glucose 198 H 09/25/22 05:23: POC Glucose 216 H 09/25/22 07:31: WBC 5.7, RBC 3.66 L, Hgb 10.6 L, Hct 32.9 L, MCV 90.0, MCH 28.9, MCHC 32.1, RDW 13.1, Plt Count 315, MPV 8.7, Neut % (Auto) 62.2, Lymph % (Auto) 26.8, [place] % (Auto) 5.5, Eos % (Auto) 5.1, Baso % (Auto) 0.4, Neut # (Auto) 3.5, Lymph # (Auto) 1.5, [place] # (Auto) 0.3, Eos # (Auto) 0.3, Baso # (Auto) 0.0, Sodium 138, Potassium 3.6, Chloride 109 H, Carbon Dioxide 20 L, Anion Gap 12.6, BUN 6 L D, Creatinine 0.60, Estimated Creat Clear 125, Estimated GFR 115, Est GFR ( Amer) 139, Glucose 209 H, Calcium 8.2 L I & O for Last 24 hours: Intake & Output 09/22/22 09/23/22 09/24/22 09/25/22 23:59 23:59 23:59 23:59 Intake Total 1440 / 1440 3308 / 3308 1680 / 1680 240 / 240 Output Total 0 / 0 0 / 0 0 / 0 0 / 0 Balance 1440 / 1440 3308 / 3308 1680 / 1680 240 / 240 Weight 146.113 kg 151.698 kg 142.609 kg 143.335 kg Microbiology Reports for the L
--- NOTE | 2022-09-25 09:51 | EXP.SURG.PN ---
Subjective Patient reports: no new complaints Exam Data for Last 24 hours Vital signs and Labs for Last 24 Hours: Temp Pulse Resp BP Pulse Ox O2 Del Method O2 Flow Rate 97.6 F 96 H 19 143/93 H 97 Room Air 1 09/25/22 08:00 09/25/22 08:00 09/25/22 08:00 09/25/22 08:00 09/25/22 08:00 09/25/22 09:00 09/21/22 11:58 Laboratory Results - last 24 hr 09/24/22 10:40: Vancomycin Trough 10.0 09/24/22 11:02: POC Glucose 170 H 09/24/22 16:09: POC Glucose 171 H 09/24/22 20:58: POC Glucose 198 H 09/25/22 05:23: POC Glucose 216 H 09/25/22 07:31: WBC 5.7, RBC 3.66 L, Hgb 10.6 L, Hct 32.9 L, MCV 90.0, MCH 28.9, MCHC 32.1, RDW 13.1, Plt Count 315, MPV 8.7, Neut % (Auto) 62.2, Lymph % (Auto) 26.8, [place] % (Auto) 5.5, Eos % (Auto) 5.1, Baso % (Auto) 0.4, Neut # (Auto) 3.5, Lymph # (Auto) 1.5, [place] # (Auto) 0.3, Eos # (Auto) 0.3, Baso # (Auto) 0.0, Sodium 138, Potassium 3.6, Chloride 109 H, Carbon Dioxide 20 L, Anion Gap 12.6, BUN 6 L D, Creatinine 0.60, Estimated Creat Clear 125, Estimated GFR 115, Est GFR ( Amer) 139, Glucose 209 H, Calcium 8.2 L I & O for Last 24 hours: Intake & Output 09/22/22 09/23/22 09/24/22 09/25/22 11:59 11:59 11:59 11:59 Intake Total 720 / 720 2272 / 9863 3538 / 3538 1570 / 1570 Output Total 300 / 300 0 / 0 0 / 0 0 / 0 Balance 420 / 420 1080 / 1079 3538 / 3538 1570 / 1570 Weight 322 lb 2 oz 334 lb 6.989 oz 314 lb 6.4 oz 316 lb Microbiology Reports for the Last 24 Hours: Microbiology 09/19/22 23:20 Blood Blood Culture - Final NO GROWTH AFTER 5 DAYS 09/19/22 23:15 Blood Blood Culture - Final NO GROWTH AFTER 5 DAYS 09/21/22 11:33 Breast,Left - Abscess Gram Stain - Final 09/21/22 11:33 Breast,Left - Abscess Abscess Culture - Final Staphylococcus aureus Constitutional Constitutional: no acute distress *Routine HEENT Exam Head: Present normocephalic Eye: Present EOMI and PERRL ENT: Present mucous membranes moist *Routine Neck Exam Neck: Present supple; Absent lymphadenopathy Routine Chest/Breast/Axilla Exam Comments: left breast with dressing c/d/i *Routine Respiratory Exam Respiratory: Present CTA bilaterally *Routine Cardiovascular Exam Cardiovascular: Present RRR *Routine Abdominal Exam Abdominal: Present soft and normoactive bowel sounds; Absent tenderness *Routine Extremities Exam Extremities: Absent cyanosis, clubbing or edema *Routine Skin Exam Skin: Present warm; Absent rash *Routine Neurological Exam Neurological: Present alert and oriented X3 Progress Note: A&P Assessment and plan (1) Left breast abscess: Status: Acute Assessment and plan: MSSA per culture Continue dressing changes Antibiotics to be tailored by primary service D/C home today as per primary service Outpatient follow-up (2) Morbid obesity with BMI of 40.0-44.9, adult: Status: Acute
[2022-09-25 11:43] VITALS: BP 150/84; PULSE 65; RESP 20; TEMP 36.4; O2SAT 98
[2022-09-25 12:14] LABS: POC Glucose,Bedside 168 (70-110)
== END 2022-09-25 14:19 | disposition home or self-care (01) | DRG 856 ==
LOC: ER 23:08 → 2ND 09-20 00:25
PROVIDERS: Emergency Medicine; Internal Medicine; Nurse Practitioner Family; Surgery; Admitting Provider Internal Medicine Adolescent Medicine; Emergency Provider Student in an Organized Health Care Education/Training Program; PCP Nurse Practitioner Family; Visit Provider Internal Medicine Adolescent Medicine
PROC: 0H9U0ZZ Drainage of Left Breast, Open Approach (ICD-10-PCS; principal; 2022-09-21 11:05)
DX: T81.40XA Infection following a procedure, unspecified, initial encounter (principal); R65.20 Severe sepsis without septic shock; C15.9 Malignant neoplasm of esophagus, unspecified; Z68.43 Body mass index [BMI] 50.0-59.9, adult; T81.44XA Sepsis following a procedure, initial encounter; N61.1 Abscess of the breast and nipple; Z79.84 Long term (current) use of oral hypoglycemic drugs; I10 Essential (primary) hypertension; E66.01 Morbid (severe) obesity due to excess calories; Z87.891 Personal history of nicotine dependence; F31.9 Bipolar disorder, unspecified; E11.65 Type 2 diabetes mellitus with hyperglycemia; B95.61 Methicillin susceptible Staphylococcus aureus infection as the cause of diseases classified elsewhere
CPT/HCPCS: 10060; 36415; 71275; 74177; 80048; 80053; 80202; 81001; 82962; 83036; 83605; 83690; 83735; 85007; 85025; 85610; 86850; 87040; 87070; 87077; 87186; 87205; 93005; 99291; J2405; J3370; Q9967

== ENCOUNTER 2022-11-07 11:22 | Emergency (ER) | payer MEDICAID, SELFPAY ==
[2022-11-07 12:00] VITALS: BP 131/83; PULSE 107; RESP 18; TEMP 36.8; O2SAT 97; BMI 48.6
--- NOTE | 2022-11-07 12:02 | EXP.UTC ---
Discharge Plan Disposition Patient Disposition: Home, Self-Care Condition: Good Prescriptions Prescriptions: New sulfamethoxazole-trimethoprim [Bactrim DS] 800-160 mg Tablet 1 tab PO BID Qty: 20 0RF cephalexin 500 mg capsule 500 mg PO QID Qty: 40 0RF mupirocin 2 % ointment 1 applic topical TID 7 Days Qty: 15 0RF No Action metformin 1,000 mg tablet 1,000 mg PO BID lisinopril 20 mg tablet 20 mg PO DAILY Hold Instructions: Resume on 10/03/22. Patient Comments: TAKE 1 TABLET BY MOUTH ONCE DAILY propranolol 20 mg tablet 20 mg PO BID Hold Instructions: Resume on 10/03/22. Patient Comments: TAKE 1 TABLET BY MOUTH TWICE DAILY prazosin 2 mg Capsule 2 mg PO HS topiramate [Topamax] 50 mg Tablet 50 mg PO HS hydrochlorothiazide 12.5 mg Tablet 12.5 mg PO DAILY Hold Instructions: Resume on 10/03/22. pantoprazole [Protonix] 40 mg tablet,delayed release (DR/EC) 40 mg PO DAILY quetiapine 25 mg tablet 25 mg PO HS Patient Comments: take 1 tablet by mouth twice a day lamotrigine 200 mg tablet 200 mg PO DAILY Patient Comments: TAKE ONE TABLET BY MOUTH EVERY DAY Vraylar 3 mg capsule 3 mg PO DAILY Patient Comments: TAKE ONE CAPSULE BY MOUTH EVERY DAY Referrals Follow up/Referrals: Joyce Shaw [Primary Care Provider] - See instructions David Chacko MD [Staff Physician] - See instructions Activity Restrictions/Add. Instructions Additional Instructions/Restrictions: Drink plenty of fluids. Take tylenol or ibuprofen for pain or fever. Take the medications as directed. Follow up with your regular doctor. GO TO THE ER FOR ANY WORSENING SYMPTOMS Follow up with Dr. Chacko and let them recheck you within the next 48 hours. Please call his office and let them know that you've been to urgent care for your symptoms. Clinical Impressions Clinical Impression: Sinusitis, Acute viral syndrome Stand Alone Forms Stand Alone Forms: Work/School Release Instructions Patient Instructions: DI for Skin Abscess Discharge ED Provider: rAistides Hutton [facility] HPI General Stated complaint: nausea, vomiting, diarrhea, Lt breast redness Time Seen by Provider: 11/07/22 12:02 History of Present Illness Provider Complaint: She states that for the past 2 days she has had sore throat, chills, body aches and low grade fever. Related Data Home Medications Medication Instructions Recorded Confirmed metformin 1,000 mg tablet 1,000 mg PO BID Diabetes 04/26/22 10/12/22 lisinopril 20 mg tablet 20 mg PO DAILY Blood pressure 07/19/22 10/12/22 prazosin 2 mg capsule 2 mg PO HS Nightmares 07/19/22 10/12/22 propranolol 20 mg tablet 20 mg PO BID Blood pressure 07/19/22 10/12/22 hydrochlorothiazide 12.5 mg tablet 12.5 mg PO DAILY Diuretic 09/01/22 10/12/22 topiramate 50 mg tablet (Topamax) 50 mg PO HS nightmares 09/01/22 10/12/22 cariprazine 3 mg capsule (Vraylar) 3 mg PO DAILY mood 09/20/22 10/12/22 lamotrigine 200 mg tablet 200 mg PO DAILY mood 09/20/22 10/12/22 pantoprazole 40 mg tablet,delayed 40 mg PO DAILY Acid Reflux 09/20/22 10/12/22 release (Protonix) quetiapine 25 mg tablet 25 mg PO HS Sleep 09/20/22 10/12/22 Previous Rx's Medication Instructions Recorded cephalexin 500 mg capsule 500 mg PO QID #40 caps 11/07/22 mupirocin 2 % topical ointment 1 applic topical TID 7 days #15 11/07/22 grams sulfamethoxazole 800 1 tab PO BID #20 tabs 11/07/22 mg-trimethoprim 160 mg tablet (Bactrim DS) Allergies Allergy/AdvReac Type Severity Reaction Status Date / Time amoxicillin Allergy Verified 11/07/22 12:20 silver Allergy Rash Verified 11/07/22 12:20 [From Tegaderm AG Mesh] venom-honey bee Allergy Unknown Verified 11/07/22 12:20 allergy reaction venom-wasp protein Allergy Unknown Verified 11/07/22 12:20 allergy reaction PFSH PFS Disclaimer: The information contained
[2022-11-07 12:47] VITALS: BP 131/83; PULSE 107; RESP 18; TEMP 36.8; O2SAT 97
== END 2022-11-07 12:47 | disposition home or self-care (01) ==
PROVIDERS: Emergency Provider Nurse Practitioner Family; PCP Nurse Practitioner Family
DX: J01.90 Acute sinusitis, unspecified (principal); E11.9 Type 2 diabetes mellitus without complications; I10 Essential (primary) hypertension; Z87.891 Personal history of nicotine dependence; Z79.84 Long term (current) use of oral hypoglycemic drugs; N61.0 Mastitis without abscess
CPT/HCPCS: 99212; 99214; G0463

== ENCOUNTER 2022-11-11 07:55 | Outpatient (CLI) | payer MEDICAID, SELFPAY ==
--- NOTE | 2022-11-11 07:55 | FL_ITS ---
FINAL REPORT CLINICAL HISTORY: dysphagia DAP 1373.17 1.34 fluoro time FINDINGS: ESOPHAGRAM HISTORY: Dysphagia. PROCEDURE: The patient ingested barium. Effervescent crystals were also administered. Fluoro time: 1 minute 34 seconds. 13 radiographs were obtained DAP: 1373.17 uGym2. FINDINGS: The esophagus is normal. There is a small sliding-type hiatal hernia. There is no gastroesophageal reflux. Peristalsis is normal. IMPRESSION: Small sliding-type hiatal hernia. Films reviewed , interpreted and dictated by Dr. Fletcher. Transcribed by Angelo Hollingsworth PA-C. Reviewed, Interpreted and Dictated by Jair Fletcher MD Transcribed by NAM Stacy Authenticated and [facility]
[2022-11-11 11:44] VITALS: BP 134/75; PULSE 85; RESP 18; TEMP 36.9; O2SAT 99
== END 2022-11-11 12:15 | disposition home or self-care (01) ==
LOC: RAD 07:55 → INF 11:27
PROVIDERS: PCP Nurse Practitioner Family; Visit Provider Surgery
DX: N61.1 Abscess of the breast and nipple (principal); R13.10 Dysphagia, unspecified
CPT/HCPCS: 74220; 96372

== ENCOUNTER → 2022-11-18 08:12 | Outpatient (CLI) | payer MEDICAID, SELFPAY ==
--- NOTE | 2022-11-18 08:12 | US_ITS ---
PROCEDURE INFORMATION: Exam: US Left Breast, Complete Exam date and time: 11/18/2022 8:29 AM Age: 32 years old Clinical indication: Breast pain; Ductal surg due to bleeding discharge --- got infected 1 month after and had a clean out procedure done 09/2022 TECHNIQUE: Imaging protocol: Complete ultrasound of all four quadrants of the left breast and the retroareolar regions, including ultrasound of the axilla when performed. COMPARISON: US BREAST LT COMPLETE 03/21/2022 3:34 PM FINDINGS: Breast: Sonographic images of the left breast including the retroareolar region, all 4 quadrants and the axilla do not demonstrate any solid masses. Incidental 0.6 cm cyst in the 2 o'clock axis 6 cm from the nipple. No architectural distortion or acoustical shadowing. Subcutaneous breast edema is noted in the retroareolar region with overlying skin thickening. No abscess is seen. No axillary adenopathy. IMPRESSION: Periareolar breast edema possibly reflecting cellulitis/mastitis. No focal abscess is seen. If antibiotic therapy is instituted, a 2 week follow-up left breast ultrasound is recommended to assess for potential resolution of the findings in the periareolar region. ASSESSMENT: BI-RADS Category 3: Probably benign
== END ==
PROVIDERS: PCP Nurse Practitioner Family; Visit Provider Surgery
DX: N61.1 Abscess of the breast and nipple (principal)
CPT/HCPCS: 76641

== ENCOUNTER → 2022-11-29 09:19 | Outpatient (CLI) | payer MEDICAID, SELFPAY ==
--- NOTE | 2022-11-29 09:19 | US_ITS ---
PROCEDURE INFORMATION: Exam: US Left Breast, Complete Exam date and time: 11/29/2022 9:25 AM Age: 32 years old Clinical indication: Ductal surg due to bloody discharge-- abcess surg also 09/11-- 10/12; Additional info: Abscess follow up TECHNIQUE: Imaging protocol: Complete ultrasound of all four quadrants of the left breast and the retroareolar regions, including ultrasound of the axilla when performed. COMPARISON: US BREAST LT COMPLETE 11/18/2022 8:29 AM FINDINGS: Breast: Sonographic images of the left breast including the retroareolar region, all 4 quadrants and the axilla do not demonstrate any solid masses. 0.5 cm 2 o'clock axis cyst 6 cm from the nipple. Other findings: Retroareolar edema and overlying focal skin thickening appears grossly unchanged compared to prior sonogram dated 11/18/2022. No focal abscess is seen. No suspicious architectural distortion or acoustical shadowing. No skin thickening or axillary adenopathy. IMPRESSION: No significant interval change in periareolar breast edema. Further evaluation with follow-up sonograms as clinically warranted. ASSESSMENT: BI-RADS Category 2: Benign
== END ==
PROVIDERS: PCP Nurse Practitioner Family; Visit Provider Surgery
DX: N61.1 Abscess of the breast and nipple (principal)
CPT/HCPCS: 76641

== ENCOUNTER → 2022-11-30 14:24 | Outpatient (CLI) | payer MEDICAID, SELFPAY ==
[2022-11-30 14:51] LABS: Basophils # 0.1 K/mm3 (0-0.2); Basophils % 0.9 % (0.1-2.0); Eosinophils # 0.3 K/mm3 (0.0-0.4); Eosinophils % 4.9 % (0.1-12.0); Hematocrit 38.4 % (37.0-47.0); Hemoglobin 13.6 g/dL (12.2-16.2); Lymphocytes # 1.7 K/mm3 (0.7-4.5); Lymphocytes % 31.7 % (10-50); Mean Corpuscular HGB Conc 35.5 g/dL (31.8-35.4); Mean Corpuscular Hemoglobin 30.7 pg (27.0-31.2); Mean Corpuscular Volume 86.5 fl (81-99); Mean Platelet Volume 8.1 fl (7.4-10.4); Monocytes # 0.3 K/mm3 (0.1-1.0); Monocytes % 4.7 % (1.7-9.3); Neutrophils # 3.1 K/mm3 (1.8-7.8); Neutrophils % 57.8 % (37.0-80.0); Platelet Count 280 K/mm3 (142-424); Red Blood Count 4.44 M/mm3 (4.20-5.40); White Blood Count 5.4 K/mm3 (4.8-10.8)
[2022-11-30 15:58] LABS: Blood Urea Nitrogen 12 mg/dl (7-17); Calcium 9.3 mg/dl (8.4-10.2); Carbon Dioxide 21 mmol/L (22.0-30.0); Chloride 105 mmol/L (98-107); Estimated Glomerular Filt Rate 114 ml/min (>60); GFR (African American) 138 ML/MIN (>60); Glucose 221 mg/dl (74-100); Sodium 139 mmol/L (136-145)
== END ==
PROVIDERS: PCP Nurse Practitioner Family; Visit Provider Surgery
DX: N61.1 Abscess of the breast and nipple (principal)
CPT/HCPCS: 36415; 80048; 85025

== ENCOUNTER 2022-12-15 06:56 | Day surgery (SDC) | payer MEDICAID, SELFPAY ==
[2022-12-15] VITALS (9 sets, daily range): BP systolic 123–149; BP diastolic 75–90; PULSE 92–98; RESP 14–19; TEMP 36.3–36.6; O2SAT 95–97; BMI 46.7
--- NOTE | 2022-12-15 07:25 | P.PNANES_ITS ---
[facility] Disclaimer: The information contained in this section may have been updated after the patient was seen, as this information can be updated by other users. Medical History Abnormal electrocardiogram [ECG] [EKG] Chest pain Dizziness DM2 (diabetes mellitus, type 2) Dyspnea Edema of both lower extremities Esophageal cancer Food impaction of esophagus HTN (hypertension) Palpitations Sepsis Sinus tachycardia Suicide attempt by drug ingestion Surgical History History of appendectomy History of breast surgery History of section History of colonoscopy History of hysterectomy History of laparoscopic cholecystectomy History of tonsillectomy Hx of dilation and curettage Hx of umbilical hernia repair Family History Other Family history of cancer Family history of hypertension 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 Smoking Status: Former smoker tobacco type: cigarettes second hand exposure: No alcohol intake: former substance use type: denies use, former substance user and crack/cocaine current occupational status: employed Travel in the last 8 weeks: None household members: children housing: house lives independently: Yes marital status: number of children: 2 education level: high school service: No current occupation: [employer] current occupational exposures/hazards: No caffeine: Yes special sofia needs: No agree to transfusion: No do you feel safe at home: Yes victim of physical abuse: No victim of emotional abuse: No victim of sexual abuse: No would you like helpful sources: No [facility] Anesthesia Checklist Patient Identification Patient Identification: Arm Band and Verbal (Name & ) Structural Data Admitted From: Home Planned Operative Procedure/s: excision left breast nodule Consent for Planned Operative Procedure(s) Verified: Yes NPO Status Verified Time NPO: 00:00 Additional verifications Anesthesia Reactions: No Hx Blood Transfusions: No Blood Transfusion Reaction: No Airway Assessment Mallampati Score:: Class II C-Spine Mobility Assessed: Yes TMJ Mobility Assessed: Yes Dentition: Good Dentition Neurological Assessment Level of Consciousness: Awake Hx Seizures: No Numbness or tingling in extremities: No Anesthesia Plan Anesthesia Risk discussed: Yes Anesthesia Plan: Verified ASA Class: III Anesthesia Type: General
[2022-12-15 07:29] LABS: POC Glucose,Bedside 221 (70-110)
--- NOTE | 2022-12-15 09:07 | EXP.OP.NOTE ---
Date of procedure: 12/15/22 Pre-op Diagnosis:: Left breast nodule status post history of complex abscess Post-op Diagnosis:: Same Procedure performed:: Excision of left breast nodule Surgeon:: David Chacko MD Anesthesia: RENATO Estimated blood loss (mL): 10 Operative findings:: Nodularity along inferior areolar margin (prior incision and drainage site) excised sharply Wound left open secondary to history of recent complex abscess Operative note:: After informed consent was obtained the patient was taken to the operating room and placed in the supine position. General anesthesia was induced and her left breast was prepped and draped in a sterile fashion. After infiltration with local anesthetic an elliptical incision was made around the nodularity along the lateral/inferior margin of the areola. The underlying firm tissue was excised and passed off for pathologic evaluation. An extended deep margin was excised with electrocautery and also passed off for pathologic evaluation. Electrocautery was then used to achieve hemostasis. The wound was packed open and dressings were applied. She was then transferred to recovery in stable condition. Condition: stable Disposition: PACU Specimens:: Left breast nodule (prior incision and drainage site status post complex abscess) Extended deep margin Complications:: No immediate
--- NOTE | 2022-12-15 09:23 | EXP.ANES.I ---
[facility] Anesthesia Record Part I Anesthesia Record I Intake, IV Amount: 800 Hydration: Adequate Estimated blood loss (mL): 25 Urine output (mL): 1 Blood Products used (#): none Blood Pressure: 136/90 SaO2: 95 Pulse Rate: 94 Airway Patency: Patent Respiratory Rate: 18 Temperature: 97.3 F Patient is:: Awake, Nasal O2 and Stable Stable to PACU at:: 09:20
--- NOTE | 2022-12-15 13:00 | EXP.ANES.II ---
[facility] Anesthesia Record Part II Anesthesia Record Part II Discharge Time: 09:45 Destination: Surgical Day Care (OP Surgery) PACU nurse assessment reviewed?: Yes Patient Condition:: Good Anesthesia Complications:: None Swallowing reflex intact?: Yes Airway Patency: Patent Cyanosis?: No Blood Pressure: 127/86 SaO2: 96 Respiratory Rate: 17 Pulse Rate: 93 Temperature: 97.8 F Mental Status: Alert & Oriented Pain level:: 0 Nausea and/or vomitting:: None Intake, IV Amount: 0 Hydration: Adequate
== END 2022-12-15 10:20 | disposition home or self-care (01) ==
PROVIDERS: PCP Nurse Practitioner Family; Visit Provider Surgery
PROC: (CPT 19120; principal; 2022-12-15 08:30)
DX: N63.20 Unspecified lump in the left breast, unspecified quadrant (principal); E11.9 Type 2 diabetes mellitus without complications
CPT/HCPCS: 19120; 82962; 96374; J2405

== ENCOUNTER 2023-07-17 22:18 | Emergency (ER) | payer MEDICAID, SELFPAY ==
--- NOTE | 2023-07-17 22:16 | ECG_ITS ---
APPROVED REPORT Exam: Resting ECG HR:95 bpm ECG Measurements Heart Rate 95 AXES RI 148 P 53 QRSd 101 QRS 56 QT 338 T -1 QTc 391 Conclusion SINUS RHYTHM POSSIBLE LEFT ATRIAL ENLARGEMENT [-0.1mV P-WAVE IN V1/V2] NONSPECIFIC T-WAVE ABNORMALITY BORDERLINE ECG UNCONFIRMED REPORT Electronically signed by : JESUS BELCHER, 07/18/2023 02:52:10
[2023-07-17 22:19] VITALS: BP 178/103; PULSE 108; RESP 20; TEMP 36.9; O2SAT 98; BMI 46.6
--- NOTE | 2023-07-17 22:20 | ED_ITS ---
<Statement entered by Prashant Coyle MD - 07/17/23 23:01> I was consulted by the JAIDA, and we discussed the complexity of the problems being addressed. I approved the treatment and management plan for this patient's care in the emergency department, thus performing a substantive portion of the medical decision making. Prashant Coyle MD, MELISSA, FACEP Discharge Plan Disposition Patient Disposition: Home, Self-Care Prescriptions Prescriptions: New ondansetron HCl 4 mg tablet 4 mg PO Q8H PRN (Reason: nausea and vomiting) 5 Days Qty: 30 0RF No Action cephalexin 500 mg capsule 500 mg PO ketorolac 10 mg tablet 10 mg PO Q6H PRN (Reason: pain) Qty: 14 0RF metformin 1,000 mg tablet 1,000 mg PO BID lisinopril 20 mg tablet 20 mg PO DAILY Hold Instructions: Resume on 10/03/22. Patient Comments: TAKE 1 TABLET BY MOUTH ONCE DAILY propranolol 20 mg tablet 20 mg PO BID Hold Instructions: Resume on 10/03/22. Patient Comments: TAKE 1 TABLET BY MOUTH TWICE DAILY prazosin 2 mg Capsule 2 mg PO HS hydrochlorothiazide 12.5 mg Tablet 12.5 mg PO DAILY Hold Instructions: Resume on 10/03/22. topiramate [Topamax] 50 mg tablet 100 mg PO HS pantoprazole [Protonix] 40 mg tablet,delayed release (DR/EC) 40 mg PO DAILY quetiapine 25 mg tablet 25 mg PO HS Patient Comments: take 1 tablet by mouth twice a day lamotrigine 200 mg tablet 200 mg PO DAILY Patient Comments: TAKE ONE TABLET BY MOUTH EVERY DAY Vraylar 3 mg capsule 3 mg PO DAILY Patient Comments: TAKE ONE CAPSULE BY MOUTH EVERY DAY mupirocin 2 % ointment 1 applic topical TID 7 Days Qty: 15 0RF Referrals Follow up/Referrals: Joyce Shaw [Primary Care Provider] - See instructions Activity Restrictions/Add. Instructions Additional Instructions/Restrictions: Please follow-up with your primary care provider. Please return to the emergency department if you develop any new or worsening symptoms or become concerned for your health. Please take Zofran as needed for nausea and vomiting. Clinical Impressions Clinical Impression: Chest pain, Nausea Discharge ED Provider: Joseph Alcazar General Adult HPI <NAM Lozano - Last Filed: 07/17/23 22:33> General Chief complaint: Chest Pain Stated complaint: CP Time Seen by Provider: 07/17/23 22:20 History of Present Illness HPI narrative: Patient presents for evaluation of chest pain. Patient states that she was in the shower approximately 8:00 and felt left-sided chest pain. Patient states it hurts to take a deep breath. Patient does have a history of panic attacks however this is different than what she normally experiences. She does not feel anxious at all. Patient also states that she is normally on metformin and lisinopril however she has not taken them in a month for unknown reasons. Patient denies fever chills hemoptysis hematochezia melena nausea vomiting diarrhea diaphoresis dysuria. Related Data Home Medications Medication Instructions Recorded Confirmed metformin 1,000 mg tablet 1,000 mg PO BID Diabetes 04/26/22 07/12/23 lisinopril 20 mg tablet 20 mg PO DAILY Blood pressure 07/19/22 07/12/23 prazosin 2 mg capsule 2 mg PO HS Nightmares 07/19/22 07/12/23 propranolol 20 mg tablet 20 mg PO BID Blood pressure 07/19/22 07/12/23 hydrochlorothiazide 12.5 mg tablet 12.5 mg PO DAILY Diuretic 09/01/22 07/12/23 cariprazine 3 mg capsule (Vraylar) 3 mg PO DAILY mood 09/20/22 07/12/23 lamotrigine 200 mg tablet 200 mg PO DAILY mood 09/20/22 07/12/23 pantoprazole 40 mg tablet,delayed 40 mg PO DAILY Acid Reflux 09/20/22 07/12/23 release (Protonix) quetiapine 25 mg tablet 25 mg PO HS Sleep 09/20/22 07/12/23 topiramate 50 mg tablet (Topamax) 100 mg PO HS nightmares 11/23/22 07/12/23 cephalexin 500 mg capsule 500 mg PO 12/21/22 07/12/23 Previous Rx's Medication Instructions Recorded mupirocin 2 % topical ointment 1 applic topical TID 7 days #15 11/07/22 grams ketorolac 10 mg tablet 10 mg PO Q6H PRN pain #14 tabs 11/16/22 ondansetron HCl 4 mg tablet 4 mg PO Q8H PRN nausea and 07/18/23 vomiting 5 days #30 tabs Allergies Allergy/AdvReac Type Severity Reaction Status Date / Time hydrocodone Allergy Mild Rash Verified 07/12/23 14:47 amoxicillin Allergy Verified 07/12/23 14:47 silver Allergy Rash Verified 07/12/23 14:47 [From Tegaderm AG Mesh] venom-honey bee Allergy Unknown Verified 07/12/23 14:47 allergy reaction venom-wasp protein Allergy Unknown Verified 07/12/23 14:47 allergy reaction PFSH <NAM Lozano - Last Filed: 07/17/23 22:33> [facility] Disclaimer: The information contained in this section may have been updated after the patient was seen, as this information can be updated by other users. Medical History Sepsis Food impaction of esophagus Esophageal cancer Bilateral nipple discharge Palpitations DM2 (diabetes mellitus, type 2) HTN (hypertension) Sinus tachycardia Abnormal electrocardiogram [ECG] [EKG] Dizziness Edema of both lower extremities Dyspnea Chest pain Suicide attempt by drug ingestion Surgical History History of breast surgery Hx of dilation and curettage x2 Hx of umbilical hernia repair History of hysterectomy History of tonsillectomy History of appendectomy History of laparoscopic cholecystectomy History of colonoscopy History of section x 2 Family History Other Family history of cancer Family history of hypertension 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 Smoking Status: Never smoker second hand exposure: No alcohol intake: former substance use type: denies use, former substance user and crack/cocaine current occupational status: employed Travel in the last 8 weeks: None household members: children housing: house lives independently: Yes marital status: number of children: 2 education level: high school service: No current occupation: [employer] current occupational exposures/hazards: No caffeine: Yes special sofia needs: No agree to transfusion: No do you feel safe at home: Yes victim of physical abuse: No victim of emotional abuse: No victim of sexual abuse: No would you like helpful sources: No <NAM Lozano - Last Filed: 07/17/23 22:33> ROS Obtained: Yes Systems reviewed as appropriate & no additional complaints except as documented Physical Exam <NAM Lozano - Last Filed: 07/17/23 22:33> General General appearance: alert and in no apparent distress Head Head exam: atraumatic and normal inspection Eye Eye exam: Present normal appearance, PERRL and EOMI ENT ENT exam: Present normal exam, normal oropharynx and mucous membranes moist Neck Neck exam: Present normal inspection and full ROM Chest Chest inspection: Present normal inspection and symmetric chest wall rise; Absent tenderness Respiratory Respiratory exam: Present normal lung sounds bilaterally; Absent respiratory distress or accessory muscle use Cardiovascular Cardiovascular exam: Present regular rate, normal rhythm, normal heart sounds, +S1 and +S2 Abdominal Exam Abdominal exam: Present soft (Obese) and normal bowel sounds; Absent tenderness, guarding or rebound Extremities Exam Extremities exam: Present normal inspection and full ROM Back Exam Back exam: Present normal inspection and full ROM; Absent tenderness Neurological Exam Neurological exam: Present alert, oriented X3 and CN II-XII intact Psychiatric Psychiatric exam: Present normal affect and normal mood Skin Skin exam: Present warm, dry and normal color Medical Decision Making <NAM Lozano - Last Filed: 07/17/23 22:33> Medical Records Medical records reviewed: Yes I reviewed the patient's medical records. Stepan Godfrey Pt receiving controlled substance: No Vital Signs: 07/17/23 22:19 07/17/23 22:24 Temperature 98.5 F Temperature Source Oral Pulse Rate 108 H Pulse Rate [Right Radial] 108 H Respiratory Rate 20 Blood Pressure [Right Arm] 178/103 H Blood Pressure Mean [Right Arm] 128 02 Sat by Pulse Oximetry 98 Oxygen Delivery Method Room Air Lab Data Lab results reviewed: Yes I reviewed the patient's lab results. Lab Results 07/17/23 22:40: WBC 7.4, RBC 4.49, Hgb 13.6, Hct 39.5, MCV 87.9, MCH 30.2, MCHC 34.3, RDW 13.0, Plt Count 301, MPV 8.1, Neut % (Auto) 53.4, Lymph % (Auto) 35.7, [place] % (Auto) 4.3, Eos % (Auto) 5.1, Baso % (Auto) 1.5, Neut # (Auto) 4.0, Lymph # (Auto) 2.7, [place] # (Auto) 0.3, Eos # (Auto) 0.4, Baso # (Auto) 0.1, PT 10.7, INR 0.99, D-Dimer < 0.25, Sodium 136, Potassium 3.9, Chloride 105, Carbon Dioxide 24, Anion Gap 10.9, BUN 9, Creatinine 0.50 L, Estimated Creat Clear 148, Estimated GFR 141, Est GFR ( Amer) 171, Glucose 178 H, Hemoglobin A1c 6.5 H, Calcium 9.1, Magnesium 1.6, Total Bilirubin 0.2, AST 25, ALT 29, Alkaline Phosphatase 65, Troponin I < 0.01, Total Protein 7.1, Albumin 4.1, Globulin 3.0, Albumin/Globulin Ratio 1.4, TSH 2.83 07/17/23 23:20: Urine Color Yellow, Urine Appearance Sl cloudy, Urine pH 5.5, Ur Specific [place] >= 1.030, Urine Protein Negative, Urine Glucose (UA) Negative, Urine Ketones Negative, Urine Blood Negative, Urine Nitrate Negative, Urine Bilirubin Negative, Urine Urobilinogen 0.2, Ur Leukocyte Esterase Negative, Urine WBC 3-5, Ur Squamous Epith Cells Occasional, Urine Bacteria 1+ 07/18/23 00:21: Troponin I < 0.01 07/17/23 22:40 07/17/23 22:40 Orders (Tests/Meds): ED MEDICATIONS Discontinued Medications Generic Name Dose Route Start Last Admin Trade Name Andradeq PRN Reason Stop Dose Admin Acetaminophen 1,000 mg 07/17/23 22:27 07/17/23 22:38 Acetaminophen 1,000mg/100ml Vial IV 07/17/23 22:28 1,000 mg ONCE ONE Administration Belladonna Alkaloids 60 ml 07/17/23 22:27 07/17/23 22:39 Belladonna Alkaloids 60 Ml Ml PO 07/17/23 22:28 60 ml ONCE ONE Administration Hydroxyzine Pamoate 50 mg 07/17/23 22:27 07/17/23 22:39 Hydroxyzine Pamoate 25mg Capsule PO 07/17/23 22:28 50 mg ONCE ONE Administration Lactated Ringer's 1,000 mls @ 999 mls/hr 07/17/23 22:27 07/17/23 22:38 Lactated Ringer's 1000 Ml Bag IV 07/17/23 23:27 999 mls/hr .Q1H1M ONE Administration Ketorolac Tromethamine 15 mg 07/17/23 22:27 07/17/23 22:41 Ketorolac 30mg/Ml Vial IV 07/17/23 22:28 15 mg ONCE ONE Administration Ketorolac Tromethamine 15 mg 07/18/23 00:10 07/18/23 00:28 Ketorolac 30mg/Ml Vial IV 07/18/23 00:11 15 mg ONCE ONE Administration Methocarbamol 750 mg 07/18/23 00:10 07/18/23 00:26 Methocarbamol 500mg Tablet PO 07/18/23 00:11 750 mg ONCE ONE Administration Ondansetron HCl 4 mg 07/17/23 22:48 07/17/23 22:50 Ondansetron 4mg/2ml Vial IV 07/17/23 22:49 4 mg ONCE ONE Administration Promethazine HCl 25 mg 07/18/23 00:22 07/18/23 00:27 Promethazine Hcl 25mg/Ml 1ml Vial IV 07/18/23 00:23 25 mg ONCE ONE Administration Sodium Chloride 25 ml 07/18/23 00:22 07/18/23 00:27 Sodium Chloride 0.9% 25ml Bag IV 07/18/23 00:23 25 ml ONCE ONE Administration ORDERS Category Date Time Status Chest XR -- portable [XR chest portable] Stat Exams 07/17/23 22:27 Completed CBC w/Auto Diff [Complete Blood Count Auto Diff] Stat Lab 07/17/23 22:40 Completed CMP [Comprehensive Metabolic Panel] Stat Lab 07/17/23 22:40 Completed D-Dimer Stat Lab 07/17/23 22:40 Completed Hemoglobin A1C Stat Lab 07/17/23 22:40 Completed INR [Prothrombin Time INR] Stat Lab 07/17/23 22:40 Completed Magnesium Stat Lab 07/17/23 22:40 Completed TSH [Thyroid Stimulating Hormone] Stat Lab 07/17/23 22:40 Completed Trop I [Troponin I] Stat Lab 07/17/23 22:40 Completed Troponin I Q3H Lab 07/18/23 00:21 Completed Troponin I Q3H Lab 07/18/23 04:30 Ordered UA [Urinalysis and Microscopic] Stat Lab 07/17/23 23:20 Completed Medical Decision Narrative: In summary patient is a 32-year-old female who presents to the emergency department for evaluation of chest pain. Patient is hypertensive with a blood pressure of 178/103 tachycardic with a rate of 108 but satting at 98% on room air breathing 20 times a minute upon arrival, and afebrile. Physical exam is remarkable for pain with deep breath but no pain on palpation with normal breath sounds heard to bases. Patient has normal heart sounds no murmurs gallops rubs or thrills.. Differential diagnosis includes ACS versus pneumonia versus anxiety etc. Initial workup will be conducted with hematologic labs EKG plain film chest x-ray. Initial interventions include LR bolus, Toradol Tylenol Vistaril. Initial workup started and pending at the time of my handoff at 2300 hrs. to the overnight provider <Prashant Coyle MD - Last Filed: 07/17/23 22:52> Vital Signs: 07/17/23 22:19 07/17/23 22:24 Temperature 98.5 F Temperature Source Oral Pulse Rate 108 H Pulse Rate [Right Radial] 108 H Respiratory Rate 20 Blood Pressure [Right Arm] 178/103 H Blood Pressure Mean [Right Arm] 128 02 Sat by Pulse Oximetry 98 Oxygen Delivery Method Room Air Lab Data Lab Results 07/17/23 22:40: WBC 7.4, RBC 4.49, Hgb 13.6, Hct 39.5, MCV 87.9, MCH 30.2, MCHC 34.3, RDW 13.0, Plt Count 301, MPV 8.1, Neut % (Auto) 53.4, Lymph % (Auto) 35.7, [place] % (Auto) 4.3, Eos % (Auto) 5.1, Baso % (Auto) 1.5, Neut # (Auto) 4.0, Lymph # (Auto) 2.7, [place] # (Auto) 0.3, Eos # (Auto) 0.4, Baso # (Auto) 0.1, PT 10.7, INR 0.99, D-Dimer < 0.25, Sodium 136, Potassium 3.9, Chloride 105, Carbon Dioxide 24, Anion Gap 10.9, BUN 9, Creatinine 0.50 L, Estimated Creat Clear 148, Estimated GFR 141, Est GFR ( Amer) 171, Glucose 178 H, Hemoglobin A1c 6.5 H, Calcium 9.1, Magnesium 1.6, Total Bilirubin 0.2, AST 25, ALT 29, Alkaline Phosphatase 65, Troponin I < 0.01, Total Protein 7.1, Albumin 4.1, Globulin 3.0, Albumin/Globulin Ratio 1.4, TSH 2.83 07/17/23 23:20: Urine Color Yellow, Urine Appearance Sl cloudy, Urine pH 5.5, Ur Specific [place] >= 1.030, Urine Protein Negative, Urine Glucose (UA) Negative, Urine Ketones Negative, Urine Blood Negative, Urine Nitrate Negative, Urine Bilirubin Negative, Urine Urobilinogen 0.2, Ur Leukocyte Esterase Negative, Urine WBC 3-5, Ur Squamous Epith Cells Occasional, Urine Bacteria 1+ 07/18/23 00:21: Troponin I < 0.01 Orders (Tests/Meds): ED MEDICATIONS Discontinued Medications Generic Name Dose Route Start Last Admin Trade Name Freq PRN Reason Stop Dose Admin Acetaminophen 1,000 mg 07/17/23 22:27 07/17/23 22:38 Acetaminophen 1,000mg/100ml Vial IV 07/17/23 22:28 1,000 mg ONCE ONE Administration Belladonna Alkaloids 60 ml 07/17/23 22:27 07/17/23 22:39 Belladonna Alkaloids 60 Ml Ml PO 07/17/23 22:28 60 ml ONCE ONE Administration Hydroxyzine Pamoate 50 mg 07/17/23 22:27 07/17/23 22:39 Hydroxyzine Pamoate 25mg Capsule PO 07/17/23 22:28 50 mg ONCE ONE Administration Lactated Ringer's 1,000 mls @ 999 mls/hr 07/17/23 22:27 07/17/23 22:38 Lactated Ringer's 1000 Ml Bag IV 07/17/23 23:27 999 mls/hr .Q1H1M ONE Administration Ketorolac Tromethamine 15 mg 07/17/23 22:27 07/17/23 22:41 Ketorolac 30mg/Ml Vial IV 07/17/23 22:28 15 mg ONCE ONE Administration Ketorolac Tromethamine 15 mg 07/18/23 00:10 07/18/23 00:28 Ketorolac 30mg/Ml Vial IV 07/18/23 00:11 15 mg ONCE ONE Administration Methocarbamol 750 mg 07/18/23 00:10 07/18/23 00:26 Methocarbamol 500mg Tablet PO 07/18/23 00:11 750 mg ONCE ONE Administration Ondansetron HCl 4 mg 07/17/23 22:48 07/17/23 22:50 Ondansetron 4mg/2ml Vial IV 07/17/23 22:49 4 mg ONCE ONE Administration Promethazine HCl 25 mg 07/18/23 00:22 07/18/23 00:27 Promethazine Hcl 25mg/Ml 1ml Vial IV 07/18/23 00:23 25 mg ONCE ONE Administration Sodium Chloride 25 ml 07/18/23 00:22 07/18/23 00:27 Sodium Chloride 0.9% 25ml Bag IV 07/18/23 00:23 25 ml ONCE ONE Administration ORDERS Category Date Time Status Chest XR -- portable [XR chest portable] Stat Exams 07/17/23 22:27 Completed CBC w/Auto Diff [Complete Blood Count Auto Diff] Stat Lab 07/17/23 22:40 Completed CMP [Comprehensive Metabolic Panel] Stat Lab 07/17/23 22:40 Completed D-Dimer Stat Lab 07/17/23 22:40 Completed Hemoglobin A1C Stat Lab 07/17/23 22:40 Completed INR [Prothrombin Time INR] Stat Lab 07/17/23 22:40 Completed Magnesium Stat Lab 07/17/23 22:40 Completed TSH [Thyroid Stimulating Hormone] Stat Lab 07/17/23 22:40 Completed Trop I [Troponin I] Stat Lab 07/17/23 22:40 Completed Troponin I Q3H Lab 07/18/23 00:21 Completed Troponin I Q3H Lab 07/18/23 04:30 Ordered UA [Urinalysis and Microscopic] Stat Lab 07/17/23 23:20 Completed ECG Data Tracing #1: I reviewed this ECG and interpreted as documented below: Ventricular rate of 95 normal sinus rhythm there there is some T wave inversions in inferior leads and some Q waves but these are nonspecific no significant conduction abnormality questionable left atrial enlargement <Joseph Alcazar MD - Last Filed: 07/18/23 01:02> Vital Signs: 07/17/23 22:19 07/17/23 22:24 Temperature 98.5 F Temperature Source Oral Pulse Rate 108 H Pulse Rate [Right Radial] 108 H Respiratory Rate 20 Blood Pressure [Right Arm] 178/103 H Blood Pressure Mean [Right Arm] 128 02 Sat by Pulse Oximetry 98 Oxygen Delivery Method Room Air Lab Data Lab Results 07/17/23 22:40: WBC 7.4, RBC 4.49, Hgb 13.6, Hct 39.5, MCV 87.9, MCH 30.2, MCHC 34.3, RDW 13.0, Plt Count 301, MPV 8.1, Neut % (Auto) 53.4, Lymph % (Auto) 35.7, [place] % (Auto) 4.3, Eos % (Auto) 5.1, Baso % (Auto) 1.5, Neut # (Auto) 4.0, Lymph # (Auto) 2.7, [place] # (Auto) 0.3, Eos # (Auto) 0.4, Baso # (Auto) 0.1, PT 10.7, INR 0.99, D-Dimer < 0.25, Sodium 136, Potassium 3.9, Chloride 105, Carbon Dioxide 24, Anion Gap 10.9, BUN 9, Creatinine 0.50 L, Estimated Creat Clear 148, Estimated GFR 141, Est GFR ( Amer) 171, Glucose 178 H, Hemoglobin A1c 6.5 H, Calcium 9.1, Magnesium 1.6, Total Bilirubin 0.2, AST 25, ALT 29, Alkaline Phosphatase 65, Troponin I < 0.01, Total Protein 7.1, Albumin 4.1, Globulin 3.0, Albumin/Globulin Ratio 1.4, TSH 2.83 07/17/23 23:20: Urine Color Yellow, Urine Appearance Sl cloudy, Urine pH 5.5, Ur Specific [place] >= 1.030, Urine Protein Negative, Urine Glucose (UA) Negative, Urine Ketones Negative, Urine Blood Negative, Urine Nitrate Negative, Urine Bilirubin Negative, Urine Urobilinogen 0.2, Ur Leukocyte Esterase Negative, Urine WBC 3-5, Ur Squamous Epith Cells Occasional, Urine Bacteria 1+ 07/18/23 00:21: Troponin I < 0.01 Orders (Tests/Meds): ED MEDICATIONS Discontinued Medications Generic Name Dose Route Start Last Admin Trade Name Freq PRN Reason Stop Dose Admin Acetaminophen 1,000 mg 07/17/23 22:27 07/17/23 22:38 Acetaminophen 1,000mg/100ml Vial IV 07/17/23 22:28 1,000 mg ONCE ONE Administration Belladonna Alkaloids 60 ml 07/17/23 22:27 07/17/23 22:39 Belladonna Alkaloids 60 Ml Ml PO 07/17/23 22:28 60 ml ONCE ONE Administration Hydroxyzine Pamoate 50 mg 07/17/23 22:27 07/17/23 22:39 Hydroxyzine Pamoate 25mg Capsule PO 07/17/23 22:28 50 mg ONCE ONE Administration Lactated Ringer's 1,000 mls @ 999 mls/hr 07/17/23 22:27 07/17/23 22:38 Lactated Ringer's 1000 Ml Bag IV 07/17/23 23:27 999 mls/hr .Q1H1M ONE Administration Ketorolac Tromethamine 15 mg 07/17/23 22:27 07/17/23 22:41 Ketorolac 30mg/Ml Vial IV 07/17/23 22:28 15 mg ONCE ONE Administration Ketorolac Tromethamine 15 mg 07/18/23 00:10 07/18/23 00:28 Ketorolac 30mg/Ml Vial IV 07/18/23 00:11 15 mg ONCE ONE Administration Methocarbamol 750 mg 07/18/23 00:10 07/18/23 00:26 Methocarbamol 500mg Tablet PO 07/18/23 00:11 750 mg ONCE ONE Administration Ondansetron HCl 4 mg 07/17/23 22:48 07/17/23 22:50 Ondansetron 4mg/2ml Vial IV 07/17/23 22:49 4 mg ONCE ONE Administration Promethazine HCl 25 mg 07/18/23 00:22 07/18/23 00:27 Promethazine Hcl 25mg/Ml 1ml Vial IV 07/18/23 00:23 25 mg ONCE ONE Administration Sodium Chloride 25 ml 07/18/23 00:22 07/18/23 00:27 Sodium Chloride 0.9% 25ml Bag IV 07/18/23 00:23 25 ml ONCE ONE Administration ORDERS Category Date Time Status Chest XR -- portable [XR chest portable] Stat Exams 07/17/23 22:27 Completed CBC w/Auto Diff [Complete Blood Count Auto Diff] Stat Lab 07/17/23 22:40 Completed CMP [Comprehensive Metabolic Panel] Stat Lab 07/17/23 22:40 Completed D-Dimer Stat Lab 07/17/23 22:40 Completed Hemoglobin A1C Stat Lab 05/27/24 22:40 Completed INR [Prothrombin Time INR] Stat Lab 07/17/23 22:40 Completed Magnesium Stat Lab 07/17/23 22:40 Completed TSH [Thyroid Stimulating Hormone] Stat Lab 07/17/23 22:40 Completed Trop I [Troponin I] Stat Lab 07/17/23 22:40 Completed Troponin I Q3H Lab 07/18/23 00:21 Completed Troponin I Q3H Lab 07/18/23 04:30 Ordered UA [Urinalysis and Microscopic] Stat Lab 07/17/23 23:20 Completed HEART Score History (anamnesis): Slightly suspicious ECG: Normal Age: <45 years Risk factors: 1-2 risk factors Troponin: </= normal limit HEART Score: 1 Medical Decision Narrative: In summary patient is a 32-year-old female who presents to the emergency department for evaluation of chest pain. Patient is hypertensive with a blood pressure of 178/103 tachycardic with a rate of 108 but satting at 98% on room air breathing 20 times a minute upon arrival, and afebrile. Physical exam is remarkable for pain with deep breath but no pain on palpation with normal breath sounds heard to bases. Patient has normal heart sounds no murmurs gallops rubs or thrills.. Differential diagnosis includes ACS versus pneumonia versus anxiety etc. Initial workup will be conducted with hematologic labs EKG plain film chest x-ray. Initial interventions include LR bolus, Toradol Tylenol Vistaril. Initial workup started and pending at the time of my handoff at 2300 hrs. to the overnight provider Ottoniel UNDERWOOD: I assumed care of the patient at the time of handoff from the prior provider. On reassessment patient continues to have mild intermittent chest pain though reports it is improved, also had some nausea. She was given additional medication including Toradol Robaxin and Phenergan. On my independent interpretation of labs, patient has negative D-dimer, negative troponin x 2, no significant electrolyte derangement, no evidence of acute urinary tract infection. Chest x-ray shows no evidence of pneumonia or opacity. The underlying etiology of patient's symptoms is not completely clear, though we have ruled out emergent pathology at this time. I had an interactive discussion with patient regarding her presentation. She was discharged in stable condition with prescription for Zofran. Critical Care <NAM Lozano - Last Filed: 05/27/24 22:33> Critical Care Time Critical Care Time: No
[2023-07-17 22:24] VITALS: PULSE 108
--- NOTE | 2023-07-17 22:27 | XR_ITS ---
PROCEDURE INFORMATION: Exam: XR Chest Exam date and time: 07/17/2023 10:35 PM Age: 32 years old Clinical indication: Pain; Chest pressure; Additional info: Chest pain TECHNIQUE: Imaging protocol: Radiologic exam of the chest. Views: 1 view. Total images: 1 COMPARISON: CT ANGIO CHEST PE PROTOCOL 09/19/2022 11:44 PM FINDINGS: Tubes, catheters and devices: EKG leads are present. Lungs: Unremarkable. No consolidation. No pulmonary vascular congestion or edema. Pleural spaces: Unremarkable. No pleural effusion. No pneumothorax. Heart/Mediastinum: Unremarkable. No cardiomegaly. No mediastinal widening or hilar enlargement. Bones/joints: Unremarkable. Soft tissues: Breast attenuation artifact. IMPRESSION: No radiographically acute cardiopulmonary process.
[2023-07-17] MEDS: ACETAMINOPHEN 1,000MG/100ML VIAL 1000 MG IV (22:38)
[2023-07-17] MEDS: LACTATED RINGERS 1000ML 1,000 ML 999 ML IV (22:38)
[2023-07-17] MEDS: hydrOXYzine pamoate 25MG CAPSULE 50 MG PO (22:39)
[2023-07-17] MEDS: BELLADONNA ALKALOIDS 60 ML ML PO (22:39)
[2023-07-17] MEDS: KETOROLAC 30MG/ML VIAL 15 MG IV (22:41)
[2023-07-17] MEDS: ONDANSETRON 4MG/2ML VIAL 4 MG IV (22:50)
[2023-07-17 22:54] LABS: Basophils # 0.1 K/mm3 (0-0.2); Basophils % 1.5 % (0.1-2.0); Eosinophils # 0.4 K/mm3 (0.0-0.4); Eosinophils % 5.1 % (0.1-12.0); Hematocrit 39.5 % (37.0-47.0); Hemoglobin 13.6 g/dL (12.2-16.2); Lymphocytes # 2.7 K/mm3 (0.7-4.5); Lymphocytes % 35.7 % (10-50); Mean Corpuscular HGB Conc 34.3 g/dL (31.8-35.4); Mean Corpuscular Hemoglobin 30.2 pg (27.0-31.2); Mean Corpuscular Volume 87.9 fl (81-99); Mean Platelet Volume 8.1 fl (7.4-10.4); Monocytes # 0.3 K/mm3 (0.1-1.0); Monocytes % 4.3 % (1.7-9.3); Neutrophils % 53.4 % (37.0-80.0); Platelet Count 301 K/mm3 (142-424); Red Blood Count 4.49 M/mm3 (4.20-5.40); White Blood Count 7.4 K/mm3 (4.8-10.8)
[2023-07-17 23:00] LABS: Chloride 105 mmol/L (98-107); Potassium 3.9 mmoL/L (3.5-5.1); Sodium 136 mmol/L (136-145)
[2023-07-17 23:03] LABS: Alanine Aminotransferase 29 U/L (12-78); Albumin Level 4.1 g/dl (3.5-5.0); Albumin/Globulin Ratio 1.4 (1.1-1.8); Alkaline Phosphatase 65 U/L (38-126); Anion Gap 10.9 mEq/L (5-15); Aspartate Amino Transferase 25 U/L (14-36); Bilirubin,Total 0.2 mg/dl (0.2-1.3); Blood Urea Nitrogen 9 mg/dl (7-17); Carbon Dioxide 24 mmol/L (22.0-30.0); Creatinine Clearance Estimated 148 mL/min (50-200); Estimated Glomerular Filt Rate 141 ml/min (>60); GFR (African American) 171 ML/MIN (>60); Magnesium 1.6 mg/dl (1.6-2.3); Total Protein,Serum 7.1 g/dl (6.3-8.2)
[2023-07-17 23:04] LABS: Calcium 9.1 mg/dl (8.4-10.2); Glucose 178 mg/dl (74-100); INR 0.99 (0.9-1.1); Prothrombin Time 10.7 seconds (10.1-12.5)
[2023-07-17 23:08] LABS: Hemoglobin A1C 6.5 % (4.0-6.0)
[2023-07-17 23:27] LABS: Microscopic, Urine URINE MICROSCOPIC (MICROSCOPIC)
[2023-07-17 23:29] LABS: D-Dimer < 0.25 ug/mL (0.0-0.5)
[2023-07-17 23:30] LABS: Troponin I < 0.01 ng/ml (0.00-0.034)
[2023-07-17 23:34] LABS: Appearance,Urine SL CLOUDY (Clear); Bilirubin,Urine Negative (Negative); Blood, Urine Negative (Negative); Color,Urine YELLOW (Yellow); Glucose,Urine (UA) Negative (Negative); Ketones,Urine Negative (Negative); Leukocyte Esterase,Urine Negative (Negative); Nitrate,Urine Negative (Negative); PH,Urine 5.5 (5.0-8.5); Protein,Urine Negative (Negative); Specific Gravity, Urine >= 1.030 (1.005-1.030); Urobilinogen,Urine 0.2 EU/dl (0.2)
[2023-07-17 23:34] LABS: Thyroid Stimulating Hormone 2.83 uIU/mL (0.465-4.68)
[2023-07-17 23:54] LABS: Bacteria,Urine 1+ /lpf; Squamous Epithelial Cell,Urine Occasional #/hpf (0-5)
[2023-07-18] MEDS: METHOCARBAMOL 500MG TABLET 750 MG PO (00:26)
[2023-07-18] MEDS: PROMETHAZINE HCL 25MG/ML 1ML VIAL 25 MG IV (00:27)
[2023-07-18] MEDS: SODIUM CHLORIDE 0.9% 25ML BAG 25 ML IV (00:27)
[2023-07-18] MEDS: KETOROLAC 30MG/ML VIAL 15 MG IV (00:28)
[2023-07-18 00:53] LABS: Troponin I < 0.01 ng/ml (0.00-0.034)
[2023-07-18 01:02] VITALS: BP 130/70; PULSE 95; RESP 16; TEMP 36.8; O2SAT 95
== END 2023-07-18 01:03 | disposition home or self-care (01) ==
PROVIDERS: Physician Assistant; Emergency Provider Emergency Medicine; PCP Nurse Practitioner Family
DX: R07.1 Chest pain on breathing (principal); R11.0 Nausea; E11.65 Type 2 diabetes mellitus with hyperglycemia; I10 Essential (primary) hypertension; Z79.84 Long term (current) use of oral hypoglycemic drugs
CPT/HCPCS: 71045; 80053; 81001; 83036; 83735; 84443; 84484; 85025; 85378; 85610; 93005; 96361; 96374; 96375; 96376; 99285; J0131; J2405; J7120

== ENCOUNTER 2023-07-21 14:32 | Outpatient (CLI) | payer MEDICAID, SELFPAY ==
--- NOTE | 2023-07-21 14:32 | MM_ITS ---
PROCEDURE INFORMATION: Exam: US Right Breast, Complete MG Bilateral Diagnostic Breast Tomosynthesis Exam date and time: 07/21/2023 3:06 PM Age: 32 years old Clinical indication: Right breast discharge; Nipple discharge; Prior surgery; Subaereolar ductal excision TECHNIQUE: Imaging protocol: Complete ultrasound of all four quadrants of the right breast and the retroareolar regions, including ultrasound of the axilla when performed. Bilateral Diagnostic tomosynthesis and 2D mammography including computer-aided detection (CAD) when performed. Unilateral or bilateral exam. COMPARISON: US BREAST RT COMPLETE 03/21/2022 3:22 PM FINDINGS: MAMMOGRAPHY: Breast composition: There are scattered areas of fibroglandular density. Breast mammogram findings: There is no stellate mass, suspicious architectural distortion or suspicious microcalcifications in either breast to suggest malignancy. No skin thickening or axillary adenopathy. ULTRASOUND: Breast ultrasound findings: Sonographic images of the right breast including the retroareolar region, all 4 quadrants and the axilla do not demonstrate any solid masses. She is scattered subcentimeter cysts are present. No architectural distortion or acoustical shadowing. No skin thickening or axillary adenopathy. IMPRESSION: No mammographic or sonographic evidence of malignancy. Further evaluation of nipple discharge if spontaneous and clear and/or hemorrhagic may be obtained with breast MRI if clinically desired.Annual bilateral mammographic screening is recommended to commence at the age of 40 unless otherwise clinically indicated. ASSESSMENT: BI-RADS Category 2: Benign.
== END 2023-07-21 23:59 | disposition home or self-care (01) ==
LOC: RAD 14:32
PROVIDERS: PCP Nurse Practitioner Family; Visit Provider Surgery
DX: N63.15 Unspecified lump in the right breast, overlapping quadrants (principal); N64.52 Nipple discharge
CPT/HCPCS: 76641; 77062; 77066; G0279

== ENCOUNTER 2023-08-10 09:22 | Day surgery (SDC) | payer MEDICAID, SELFPAY ==
[2023-08-08 11:14] VITALS: BMI 46.1
[2023-08-10] VITALS (11 sets, daily range): BP systolic 101–157; BP diastolic 63–97; PULSE 86–100; RESP 16–18; TEMP 36.2–37.2; O2SAT 92–98
[2023-08-10] MEDS: LACTATED RINGERS 1000ML 1,000 ML 25 ML IV (10:16)
--- NOTE | 2023-08-10 11:52 | P.PNANES_ITS ---
[facility] Disclaimer: The information contained in this section may have been updated after the patient was seen, as this information can be updated by other users. Medical History Sepsis Food impaction of esophagus Esophageal cancer Bilateral nipple discharge Palpitations DM2 (diabetes mellitus, type 2) HTN (hypertension) Sinus tachycardia Abnormal electrocardiogram [ECG] [EKG] Dizziness Edema of both lower extremities Dyspnea Chest pain Suicide attempt by drug ingestion Surgical History History of breast surgery Hx of dilation and curettage x2 Hx of umbilical hernia repair History of hysterectomy History of tonsillectomy History of appendectomy History of laparoscopic cholecystectomy History of colonoscopy History of section x 2 Family History Other Family history of cancer Family history of hypertension 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 Smoking Status: Never smoker second hand exposure: No alcohol intake: never substance use type: denies use, former substance user and crack/cocaine current occupational status: employed Travel in the last 8 weeks: None household members: children housing: house lives independently: Yes marital status: number of children: 2 education level: high school service: No current occupation: [employer] current occupational exposures/hazards: No caffeine: Yes special sofia needs: No agree to transfusion: No do you feel safe at home: Yes victim of physical abuse: No victim of emotional abuse: No victim of sexual abuse: No would you like helpful sources: No [facility] Anesthesia Checklist Patient Identification Patient Identification: Arm Band, Family and Verbal (Name & ) Structural Data Admitted From: Home Planned Operative Procedure/s: RIGHT areolar ductal excision Consent for Planned Operative Procedure(s) Verified: Yes Verified Documents: Surgical Consent and History and Physical NPO Status Verified Time NPO: 22:30 Chart Verification Results Verified: CBC, BMP, PT, PTT, INR, ECG and Chest Xray Additional verifications Fingerstick Blood Glucose: 126 Patient : No (s/p Hysterectomy) Anesthesia Reactions: No Hx Blood Transfusions: No Blood Transfusion Reaction: No Cardiovascular Assessment Heart Sounds: S1 & S2 Pulse Rhythm: Irregular Peripheral Edema: No Airway Assessment Mallampati Score:: Class II C-Spine Mobility Assessed: Yes TMJ Mobility Assessed: Yes Dentition: Good Dentition (Nothing loose per pt.) Neurological Assessment Level of Consciousness: Awake, Alert, Appropriate and Follows Commands Hx Seizures: No Numbness or tingling in extremities: No Anesthesia Plan Anesthesia Risk discussed: Yes Anesthesia Plan: Verified ASA Class: III Anesthesia Type: General
[2023-08-10] MEDS: CLINDAMYCIN PHOSPHATE/D5W 900 MG/50 ML PIGGYBACK 106 MG IV (12:15)
[2023-08-10] MEDS: LIDOCAINE 1% 20ML MDV 20 ML (12:53)
--- NOTE | 2023-08-10 13:24 | EXP.OP.NOTE ---
Date of procedure: 08/10/23 Pre-op Diagnosis:: Bloody right nipple discharge Post-op Diagnosis:: Same Procedure performed:: Excision of right subareolar breast tissue (note prior history of right subareolar ductal excision) Surgeon:: David Chacko MD VIRTUAL OFFICE ASSISTANT:: Deepti Valenzuelanatacha Anesthesia: LMA Estimated blood loss (mL): 15 Operative findings:: Underlying scar tissue secondary to prior surgical intervention Operative note:: After informed consent was obtained the patient was taken to the operating room and placed in the supine position. General anesthesia with laryngeal mask airway was achieved. Her right breast was prepped and draped in a sterile fashion. After infiltration with local anesthetic an incision was made along her prior subareolar margin incision. A combination of sharp dissection and electrocautery was utilized to transect through the deeper subcutaneous tissue. Significant scar tissue encountered. The dissection was initially taken as a elevated tissue flap under the areolar margin . The underlying subcutaneous/breast tissue and scar was excised with electrocautery and passed off for pathologic evaluation after being marked for margin. The superficial and deep margins were marked with dyed suture (short superficial/long deep). The superior and lateral margins were marked with non-dyed suture (short superior/long lateral). Electrocautery was utilized to achieve hemostasis. Skin was reapproximated with interrupted 6-0 nylon in a mattress fashion. Dressings were applied and the patient was transferred to recovery in stable condition. Condition: stable Disposition: PACU Specimens:: Right breast subareolar tissue Complications:: No immediate
--- NOTE | 2023-08-10 13:29 | EXP.ANES.I ---
[facility] Anesthesia Record Part I Anesthesia Record I Intake, IV Amount: 800 Hydration: Adequate Estimated blood loss (mL): 10 Urine output (mL): 0 Blood Products used (#): none Blood Pressure: 112/63 SaO2: 92 Pulse Rate: 95 Airway Patency: Patent Respiratory Rate: 16 Temperature: 99.0 F Patient is:: Awake (Talking) and Stable Stable to PACU at:: 13:25
[2023-08-10 13:32] LABS: POC Glucose,Bedside 125 (70-110)
[2023-08-10] MEDS: MORPHINE 2MG/ML SYRINGE 2 MG IV ×4 (13:46→14:10)
[2023-08-10] MEDS: ONDANSETRON 4MG/2ML VIAL 4 MG IV (13:58)
[2023-08-10 18:48] LABS: POC Glucose,Bedside 126 (70-110)
--- NOTE | 2023-08-11 11:20 | EXP.ANES.II ---
[facility] Anesthesia Record Part II Anesthesia Record Part II Discharge Time: 14:10 Destination: Surgical Day Care (OP Surgery) PACU nurse assessment reviewed?: Yes Patient Condition:: Good Anesthesia Complications:: None Swallowing reflex intact?: Yes Airway Patency: Patent Cyanosis?: No Blood Pressure: 119/64 SaO2: 98 Respiratory Rate: 16 Pulse Rate: 95 Temperature: 97.8 F Mental Status: Alert & Oriented Pain level:: 5 Nausea and/or vomitting:: None Intake, IV Amount: 800 Hydration: Adequate
[2023-08-11 11:22] VITALS: BP 119/64; PULSE 95; RESP 16; TEMP 36.6; O2SAT 98
== END 2023-08-10 14:47 | disposition home or self-care (01) ==
PROVIDERS: PCP Nurse Practitioner Family; Visit Provider Surgery
PROC: (CPT 19120; principal; 2023-08-10 11:15)
DX: N64.52 Nipple discharge (principal); L90.5 Scar conditions and fibrosis of skin; D24.1 Benign neoplasm of right breast; N60.11 Diffuse cystic mastopathy of right breast; N61.1 Abscess of the breast and nipple; E11.9 Type 2 diabetes mellitus without complications
CPT/HCPCS: 19120; 82962; 96374; J1100; J1885; J2250; J2270; J2405; J3010; J7120

== ENCOUNTER 2023-09-05 17:00 | Emergency (ER) | payer MEDICAID, SELFPAY ==
--- NOTE | 2023-09-05 17:03 | HMH.EDGENADL ---
Discharge Plan Disposition Patient Disposition: Home, Self-Care Condition: Good Prescriptions Prescriptions: No Action ketorolac 10 mg tablet 10 mg PO Q6H PRN (Reason: pain) Qty: 14 0RF metformin 1,000 mg tablet 1,000 mg PO BID lisinopril 20 mg tablet 20 mg PO DAILY Hold Instructions: Resume on 10/03/22. Patient Comments: TAKE 1 TABLET BY MOUTH ONCE DAILY propranolol 20 mg tablet 20 mg PO BID Hold Instructions: Resume on 10/03/22. Patient Comments: TAKE 1 TABLET BY MOUTH TWICE DAILY prazosin 2 mg Capsule 2 mg PO HS hydrochlorothiazide 12.5 mg Tablet 12.5 mg PO DAILY Hold Instructions: Resume on 10/03/22. ondansetron HCl 4 mg tablet 4 mg PO Q8H PRN (Reason: nausea and vomiting) 5 Days Qty: 30 0RF pantoprazole [Protonix] 40 mg tablet,delayed release (DR/EC) 40 mg PO DAILY lamotrigine [Lamictal] 200 mg tablet 200 mg PO DAILY Patient Comments: TAKE ONE TABLET BY MOUTH EVERY DAY Vraylar 3 mg capsule 3 mg PO DAILY Patient Comments: TAKE ONE CAPSULE BY MOUTH EVERY DAY mupirocin [Centany] 2 % ointment 1 applic topical TID oxycodone-acetaminophen [Percocet] 5-325 mg tablet 1 tab PO Q6H PRN (Reason: post-op pain) Qty: 17 0RF Rx Instructions: Noted allergy of hydrocodone; however, patient has taken hydrocodone on multiple occasions without adverse event. Altered to Percocet for current prescription. Patient/family aware and understands she will require close monitoring. Referrals Follow up/Referrals: Joyce Shaw [Primary Care Provider] - See instructions Activity Restrictions/Add. Instructions Additional Instructions/Restrictions: Please call first thing in the morning and make an appointment with general surgery office as discussed. Return to ER for any worsening signs or symptoms as needed. Clinical Impressions Clinical Impression: Infected postoperative breast seroma Discharge ED Provider: Edu Chavarria General Adult HPI <NAM Lozano - Last Filed: 09/05/23 19:42> General Chief complaint: PAIN Stated complaint: RT breast, red, painful, MILLS vomiting Time Seen by Provider: 09/05/23 17:03 History of Present Illness HPI narrative: She presents for evaluation of a painful right breast and headache with vomiting. Patient has a past medical history of bilateral cystic breast disease and bloody discharge from the nipple with multiple abscesses, most recently operated on 08/11/[address] Chacko on her right breast. Patient reports that this has been ongoing approximately 3 to 4 days however she is started having headache and vomiting associated with the pain. She denies subjective fever chills hemoptysis hematochezia melena diarrhea. Previous operation was in the right lateral lower quadrant of the breast and today's area of concern is the medial upper quadrant of the right breast Related Data Home Medications Medication Instructions Recorded Confirmed metformin 1,000 mg tablet 1,000 mg PO BID Diabetes 04/26/22 08/16/23 lisinopril 20 mg tablet 20 mg PO DAILY Blood pressure 07/19/22 08/16/23 prazosin 2 mg capsule 2 mg PO HS Nightmares 07/19/22 08/16/23 propranolol 20 mg tablet 20 mg PO BID Blood pressure 07/19/22 08/16/23 hydrochlorothiazide 12.5 mg tablet 12.5 mg PO DAILY Diuretic 09/01/22 08/16/23 cariprazine 3 mg capsule (Vraylar) 3 mg PO DAILY mood 09/20/22 08/16/23 lamotrigine 200 mg tablet 200 mg PO DAILY mood 09/20/22 08/16/23 (Lamictal) pantoprazole 40 mg tablet,delayed 40 mg PO DAILY Acid Reflux 09/20/22 08/16/23 release (Protonix) mupirocin 2 % topical ointment 1 applic topical TID 08/08/23 08/16/23 (Centany) Previous Rx's Medication Instructions Recorded ketorolac 10 mg tablet 10 mg PO Q6H PRN pain #14 tabs 11/16/22 ondansetron HCl 4 mg tablet 4 mg PO Q8H PRN nausea and 07/18/23 vomiting 5 days #30 tabs oxycodone-acetaminophen 5 mg-325 1 tab PO Q6H PRN post-op pain #17 08/10/23 mg tablet (Percocet) tabs Allergies Allergy/AdvReac Type Severity Reaction Status Date / Time hydrocodone Allergy Mild Rash Verified 08/16/23 14:18 amoxicillin Allergy Verified 08/16/23 14:18 silver Allergy Rash Verified 08/16/23 14:18 [From [employer] [employer]] venom-honey bee Allergy Unknown Verified 08/16/23 14:18 allergy reaction venom-wasp protein Allergy Unknown Verified 08/16/23 14:18 allergy reaction PFSH <NAM Lozano - Last Filed: 09/05/23 19:42> [facility] Disclaimer: The information contained in this section may have been updated after the patient was seen, as this information can be updated by other users. Medical History Sepsis Food impaction of esophagus Esophageal cancer Bilateral nipple discharge Palpitations DM2 (diabetes mellitus, type 2) HTN (hypertension) Sinus tachycardia Abnormal electrocardiogram [ECG] [EKG] Dizziness Edema of both lower extremities Dyspnea Chest pain Suicide attempt by drug ingestion Surgical History History of breast surgery Hx of dilation and curettage x2 Hx of umbilical hernia repair History of hysterectomy History of tonsillectomy History of appendectomy History of laparoscopic cholecystectomy History of colonoscopy History of section x 2 Family History Other Family history of cancer Family history of hypertension 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 Smoking Status: Current some day smoker tobacco type: cigarettes second hand exposure: No alcohol intake: never substance use type: denies use, former substance user and crack/cocaine current occupational status: employed Travel in the last 8 weeks: None household members: children housing: house lives independently: Yes marital status: number of children: 2 education level: high school service: No current occupation: [employer] current occupational exposures/hazards: No caffeine: Yes special sofia needs: No agree to transfusion: No do you feel safe at home: Yes victim of physical abuse: No victim of emotional abuse: No victim of sexual abuse: No would you like helpful sources: No <NAM Lozano - Last Filed: 09/05/23 19:42> ROS Obtained: Yes Systems reviewed as appropriate & no additional complaints except as documented Physical Exam <NAM Lozano - Last Filed: 09/05/23 19:42> General General appearance: alert and in no apparent distress Eye Eye exam: Present normal appearance, PERRL and EOMI Expanded Chest Exam Female Torso: 1. Area of erythema and induration with focal area of fluctuance closest to the areola without pointing Respiratory Respiratory exam: Present normal lung sounds bilaterally Cardiovascular Cardiovascular exam: Present regular rate and normal rhythm Neurological Exam Neurological exam: Present alert and oriented X3 Medical Decision Making <NAM Lozano - Last Filed: 09/05/23 19:42> Medical Records Medical records reviewed: Yes I reviewed the patient's medical records. Stepan Inquiry Pt receiving controlled substance: No Vital Signs: 09/05/23 17:19 09/05/23 17:40 09/05/23 19:55 Temperature 98.0 F 98.0 F Temperature Source Oral Pulse Rate 106 H 69 Pulse Rate [Right Radial] 109 H Respiratory Rate 16 18 Blood Pressure 151/85 H 135/78 Blood Pressure [Right Arm] 131/85 Blood Pressure Mean [Right Arm] 100 Blood Pressure Source [Right Arm] Automatic Cuff Blood Pressure Position [Right Arm] Sitting 02 Sat by Pulse Oximetry 97 96 Oxygen Delivery Method Room Air Room Air Room Air Lab Data Lab results reviewed: Yes I reviewed the patient's lab results. Lab Results 09/05/23 17:20: WBC 8.0, RBC 4.39, Hgb 13.1, Hct 38.5, MCV 87.7, MCH 30.0, MCHC 34.2, RDW 13.3, Plt Count 281, MPV 8.3, Neut % (Auto) 56.2, Lymph % (Auto) 32.8, [place] % (Auto) 4.8, Eos % (Auto) 4.8, Baso % (Auto) 1.3, Neut # (Auto) 4.5, Lymph # (Auto) 2.6, [place] # (Auto) 0.4, Eos # (Auto) 0.4, Baso # (Auto) 0.1, Sodium 139, Potassium 3.5, Chloride 110 H, Carbon Dioxide 21 L, Anion Gap 11.5, BUN 9, Creatinine 0.50 L, Estimated Creat Clear 148, Estimated GFR 141, Est GFR ( Amer) 171, Glucose 161 H, Lactate 2.0, Calcium 8.9, Total Bilirubin 0.5, AST 29, ALT 31, Alkaline Phosphatase 66, Total Protein 7.6, Albumin 4.2, Globulin 3.4 H, Albumin/Globulin Ratio 1.2, Procalcitonin < 0.030, Serum HCG, Qual Negative 09/05/23 17:20 09/05/23 17:20 Orders (Tests/Meds): ED MEDICATIONS Discontinued Medications Generic Name Dose Route Start Last Admin Trade Name Miriam PRN Reason Stop Dose Admin Acetaminophen 1,000 mg 09/05/23 17:22 09/05/23 17:35 Acetaminophen 1,000mg/100ml Vial IV 09/05/23 17:23 1,000 mg ONCE ONE Administration Diphenhydramine HCl 50 mg 09/05/23 18:47 09/05/23 19:28 Diphenhydramine 50mg/Ml Vial IV 09/05/23 18:48 50 mg ONCE ONE Administration Lactated Ringer's 1,000 mls @ 999 mls/hr 09/05/23 17:22 09/05/23 17:35 Lactated Ringer's 1000 Ml Bag IV 09/05/23 18:22 999 mls/hr .Q1H1M ONE Administration Dalbavancin 1,500 mg/ Dextrose 250 mls @ 500 mls/hr 09/05/23 18:45 09/05/23 18:59 IV 09/05/23 18:46 500 mls/hr ONCE ONE Administration Ketorolac Tromethamine 15 mg 09/05/23 17:22 09/05/23 17:35 Ketorolac 30mg/Ml Vial IV 09/05/23 17:23 15 mg ONCE ONE Administration Lidocaine/Epinephrine 20 ml 09/05/23 18:47 09/05/23 19:27 Lidocaine 1% W/Epi 1:100,000 20ml Vial SQ 09/05/23 18:48 20 ml ONCE ONE Administration Ondansetron HCl 4 mg 09/05/23 17:22 09/05/23 17:35 Ondansetron 4mg/2ml Vial IV 09/05/23 17:23 4 mg ONCE ONE Administration Oxycodone HCl 5 mg 09/05/23 18:47 09/05/23 19:28 Oxycodone 5mg Immediate Release Tablet PO 09/05/23 18:48 5 mg ONCE ONE Administration ORDERS Category Date Time Status POCUS Point of Care (ER Only) Stat Exams 09/05/23 17:23 Taken Body Fluid: Cell Count w/ Diff Stat Lab 09/05/23 19:30 Received CBC w/Auto Diff [Complete Blood Count Auto Diff] Stat Lab 09/05/23 17:20 Completed CMP [Comprehensive Metabolic Panel] Stat Lab 09/05/23 17:20 Completed HCG Qualitative, Serum Stat Lab 09/05/23 17:20 Completed Lactic Acid Stat Lab 09/05/23 17:20 Completed Procalcitonin Stat Lab 09/05/23 17:20 Completed Blood Culture Stat Micro 09/05/23 17:20 Received Body Fluid Cult & Gram Stain Stat Micro 09/05/23 19:30 Results Medical Decision Narrative: In summary patient is a 32-year-old female who presents to the emergency department for evaluation of right breast pain headache and vomiting. Patient is normotensive tachycardic upon arrival, but afebrile. Physical exam is remarkable for exquisite tenderness of the right breast in the medial upper quadrant. There is an area of erythema induration adjacent to the areola in that quadrant that is exquisitely tender to touch. Patient has some fluctuance in the aspect closest to the areola. Differential diagnosis includes abscess versus cellulitis. Initial workup will be conducted with hematologic labs blood cultures POCUS. Initial interventions include crystalloid bolus Toradol Tylenol. Initial workup reviewed by me that her hematologic labs are nonactionable however her POCUS shows a complex fluid collection in the breast. Given that I had an interactive discussion with Dr. Chacko of general surgery about patient management he felt this likely represented an infected seroma possibly hematoma. He asked if I would consider doing an incision and drainage or reopening her surgical incision. Upon reevaluation I feel like her medial portion of her surgical incision is well-healed and there was a more attractive option in the medial upper quadrant above the areola which I incised and immediately got a dunn of 30 to 40 cc of serosanguineous fluid. Patient felt immediate relief upon release of the seroma. Patient had Dalvance infused prior to incision and drainage and Dr. Brannon will see the patient in his office tomorrow morning and patient has been instructed to call at 830 to make arrangements. <Edu Chavarria MD - Last Filed: 09/05/23 23:03> Vital Signs: 09/05/23 17:19 09/05/23 17:40 09/05/23 19:55 Temperature 98.0 F 98.0 F Temperature Source Oral Pulse Rate 106 H 69 Pulse Rate [Right Radial] 109 H Respiratory Rate 16 18 Blood Pressure 151/85 H 135/78 Blood Pressure [Right Arm] 131/85 Blood Pressure Mean [Right Arm] 100 Blood Pressure Source [Right Arm] Automatic Cuff Blood Pressure Position [Right Arm] Sitting 02 Sat by Pulse Oximetry 97 96 Oxygen Delivery Method Room Air Room Air Room Air Lab Data Lab Results 09/05/23 17:20: WBC 8.0, RBC 4.39, Hgb 13.1, Hct 38.5, MCV 87.7, MCH 30.0, MCHC 34.2, RDW 13.3, Plt Count 281, MPV 8.3, Neut % (Auto) 56.2, Lymph % (Auto) 32.8, [place] % (Auto) 4.8, Eos % (Auto) 4.8, Baso % (Auto) 1.3, Neut # (Auto) 4.5, Lymph # (Auto) 2.6, [place] # (Auto) 0.4, Eos # (Auto) 0.4, Baso # (Auto) 0.1, Sodium 139, Potassium 3.5, Chloride 110 H, Carbon Dioxide 21 L, Anion Gap 11.5, BUN 9, Creatinine 0.50 L, Estimated Creat Clear 148, Estimated GFR 141, Est GFR ( Amer) 171, Glucose 161 H, Lactate 2.0, Calcium 8.9, Total Bilirubin 0.5, AST 29, ALT 31, Alkaline Phosphatase 66, Total Protein 7.6, Albumin 4.2, Globulin 3.4 H, Albumin/Globulin Ratio 1.2, Procalcitonin < 0.030, Serum HCG, Qual Negative Orders (Tests/Meds): ED MEDICATIONS Discontinued Medications Generic Name Dose Route Start Last Admin Trade Name Freq PRN Reason Stop Dose Admin Acetaminophen 1,000 mg 09/05/23 17:22 09/05/23 17:35 Acetaminophen 1,000mg/100ml Vial IV 09/05/23 17:23 1,000 mg ONCE ONE Administration Diphenhydramine HCl 50 mg 09/05/23 18:47 09/05/23 19:28 Diphenhydramine 50mg/Ml Vial IV 09/05/23 18:48 50 mg ONCE ONE Administration Lactated Ringer's 1,000 mls @ 999 mls/hr 09/05/23 17:22 09/05/23 17:35 Lactated Ringer's 1000 Ml Bag IV 09/05/23 18:22 999 mls/hr .Q1H1M ONE Administration Dalbavancin 1,500 mg/ Dextrose 250 mls @ 500 mls/hr 09/05/23 18:45 09/05/23 18:59 IV 09/05/23 18:46 500 mls/hr ONCE ONE Administration Ketorolac Tromethamine 15 mg 09/05/23 17:22 09/05/23 17:35 Ketorolac 30mg/Ml Vial IV 09/05/23 17:23 15 mg ONCE ONE Administration Lidocaine/Epinephrine 20 ml 09/05/23 18:47 09/05/23 19:27 Lidocaine 1% W/Epi 1:100,000 20ml Vial SQ 09/05/23 18:48 20 ml ONCE ONE Administration Ondansetron HCl 4 mg 09/05/23 17:22 09/05/23 17:35 Ondansetron 4mg/2ml Vial IV 09/05/23 17:23 4 mg ONCE ONE Administration Oxycodone HCl 5 mg 09/05/23 18:47 09/05/23 19:28 Oxycodone 5mg Immediate Release Tablet PO 09/05/23 18:48 5 mg ONCE ONE Administration ORDERS Category Date Time Status POCUS Point of Care (ER Only) Stat Exams 09/05/23 17:23 Taken Body Fluid: Cell Count w/ Diff Stat Lab 09/05/23 19:30 Received CBC w/Auto Diff [Complete Blood Count Auto Diff] Stat Lab 09/05/23 17:20 Completed CMP [Comprehensive Metabolic Panel] Stat Lab 09/05/23 17:20 Completed HCG Qualitative, Serum Stat Lab 09/05/23 17:20 Completed Lactic Acid Stat Lab 09/05/23 17:20 Completed Procalcitonin Stat Lab 09/05/23 17:20 Completed Blood Culture Stat Micro 09/05/23 17:20 Received Body Fluid Cult & Gram Stain Stat Micro 09/05/23 19:30 Results Medical Decision Narrative: In summary patient is a 32-year-old female who presents to the emergency department for evaluation of right breast pain headache and vomiting. Patient is normotensive tachycardic upon arrival, but afebrile. Physical exam is remarkable for exquisite tenderness of the right breast in the medial upper quadrant. There is an area of erythema induration adjacent to the areola in that quadrant that is exquisitely tender to touch. Patient has some fluctuance in the aspect closest to the areola. Differential diagnosis includes abscess versus cellulitis. Initial workup will be conducted with hematologic labs blood cultures POCUS. Initial interventions include crystalloid bolus Toradol Tylenol. Initial workup reviewed by me that her hematologic labs are nonactionable however her POCUS shows a complex fluid collection in the breast. Given that I had an interactive discussion with Dr. Chacko of general surgery about patient management he felt this likely represented an infected seroma possibly hematoma. He asked if I would consider doing an incision and drainage or reopening her surgical incision. Upon reevaluation I feel like her medial portion of her surgical incision is well-healed and there was a more attractive option in the medial upper quadrant above the areola which I incised and immediately got a dunn of 30 to 40 cc of serosanguineous fluid. Patient felt immediate relief upon release of the seroma. Patient had Dalvance infused prior to incision and drainage and Dr. Brannon will see the patient in his office tomorrow morning and patient has been instructed to call at 830 to make arrangements. I was consulted by the JAIDA, and we discussed the complexity of the problems being addressed. I approved the treatment and management plan for this patient?s care in the Emergency Department, thus performing a substantive portion of the medical decision making. Edu Chavarria MD Procedures <NAM Lozano - Last Filed: 09/05/23 19:42> Abscess I/D Site: other (Breast) Side (if applicable): right Local Anesthetic: lidocaine 1% and with epi Amount of anesthesia used (mL): 10 Technique: incised with #11 blade Amount of fluid expressed (mL): 40 Irrigation: No Packing used?: plain Critical Care <NAM Lozano - Last Filed: 09/05/23 19:42> Critical Care Time Critical Care Time: No
[2023-09-05 17:19] VITALS: BP 131/85; PULSE 109; RESP 16; TEMP 36.7; O2SAT 97; BMI 47.0
[2023-09-05 17:34] LABS: Basophils # 0.1 K/mm3 (0-0.2); Basophils % 1.3 % (0.1-2.0); Eosinophils # 0.4 K/mm3 (0.0-0.4); Eosinophils % 4.8 % (0.1-12.0); Hematocrit 38.5 % (37.0-47.0); Hemoglobin 13.1 g/dL (12.2-16.2); Lymphocytes # 2.6 K/mm3 (0.7-4.5); Lymphocytes % 32.8 % (10-50); Mean Corpuscular HGB Conc 34.2 g/dL (31.8-35.4); Mean Corpuscular Volume 87.7 fl (81-99); Mean Platelet Volume 8.3 fl (7.4-10.4); Monocytes # 0.4 K/mm3 (0.1-1.0); Monocytes % 4.8 % (1.7-9.3); Neutrophils # 4.5 K/mm3 (1.8-7.8); Neutrophils % 56.2 % (37.0-80.0); Platelet Count 281 K/mm3 (142-424); Red Blood Count 4.39 M/mm3 (4.20-5.40); Red Cell Distribution Width 13.3 % (11.5-17.5)
[2023-09-05] MEDS: ACETAMINOPHEN 1,000MG/100ML VIAL 1000 MG IV (17:35)
[2023-09-05] MEDS: LACTATED RINGERS 1000ML 1,000 ML 999 ML IV (17:35)
[2023-09-05] MEDS: KETOROLAC 30MG/ML VIAL 15 MG IV (17:35)
[2023-09-05] MEDS: ONDANSETRON 4MG/2ML VIAL 4 MG IV (17:35)
[2023-09-05 17:40] VITALS: BP 151/85; PULSE 106; O2SAT 96
[2023-09-05 17:43] LABS: Chloride 110 mmol/L (98-107); Potassium 3.5 mmoL/L (3.5-5.1); Sodium 139 mmol/L (136-145)
[2023-09-05 17:46] LABS: Alanine Aminotransferase 31 U/L (12-78); Albumin Level 4.2 g/dl (3.5-5.0); Albumin/Globulin Ratio 1.2 (1.1-1.8); Alkaline Phosphatase 66 U/L (38-126); Anion Gap 11.5 mEq/L (5-15); Aspartate Amino Transferase 29 U/L (14-36); Bilirubin,Total 0.5 mg/dl (0.2-1.3); Blood Urea Nitrogen 9 mg/dl (7-17); Calcium 8.9 mg/dl (8.4-10.2); Carbon Dioxide 21 mmol/L (22.0-30.0); Creatinine Clearance Estimated 148 mL/min (50-200); Estimated Glomerular Filt Rate 141 ml/min (>60); GFR (African American) 171 ML/MIN (>60); Globulin 3.4 g/dL (1.3-3.2); Glucose 161 mg/dl (74-100); Total Protein,Serum 7.6 g/dl (6.3-8.2)
[2023-09-05 17:53] LABS: HCG Qualitative, Serum Negative (Negative)
[2023-09-05 18:15] LABS: Procalcitonin < 0.030 ng/mL (0.0-2.0)
--- NOTE | 2023-09-05 18:49 | PC.NURSE ---
pt ambulated to restroom and back to room was given a warm blanket, mom at bs no other needs at this time
[2023-09-05] MEDS: DALBAVANCIN HCL 1,500 MG in DEXTROSE 5 % IN WATER 250 ML 500 MG IV (18:59)
[2023-09-05] MEDS: LIDOCAINE 1% W/EPI 1:100,000 20ML VIAL 20 ML SQ (19:27)
[2023-09-05] MEDS: diphenhydrAMINE 50MG/ML VIAL 50 MG IV (19:28)
[2023-09-05] MEDS: OXYCODONE 5MG IMMEDIATE RELEASE TABLET 5 MG PO (19:28)
[2023-09-05 19:55] VITALS: BP 135/78; PULSE 69; RESP 18; TEMP 36.7; O2SAT 99
[2023-09-07 14:47] LABS: Source, Body Fld. BREAST SEROMA FLUID
[2023-09-07 14:48] LABS: Appearance,Body Fld. TURBID; TNC,Body Fluid 9150 cells/uL (< 1000)
== END 2023-09-05 19:56 | disposition home or self-care (01) ==
PROVIDERS: Physician Assistant; Emergency Provider Emergency Medicine; PCP Nurse Practitioner Family
DX: L76.34 Postprocedural seroma of skin and subcutaneous tissue following other procedure (principal); T81.49XA Infection following a procedure, other surgical site, initial encounter; R51.9 Headache, unspecified; R11.2 Nausea with vomiting, unspecified; Z98.890 Other specified postprocedural states
CPT/HCPCS: 80053; 83605; 84145; 84703; 85025; 87040; 87070; 87205; 89051; 96361; 96374; 96375; 99285; J0131; J0875; J1200; J1885; J2405; J7060; J7120

== ENCOUNTER 2024-01-11 18:50 | Emergency (ER) | payer MEDICAID, SELFPAY ==
[2024-01-11 18:52] VITALS: BP 132/69; PULSE 125; RESP 18; TEMP 36.6; O2SAT 93; BMI 47.7
--- OUTSIDE RECORDS SUMMARY | 2024-01-11 19:00 | XMS_ITS | Encounter Summary ---
Author Organization [facility] Address [address] [place] [address] Care Team Providers Care Business Education Teacher Name Role Phone Hermila Orlando ABSTRACTOR Primary Care Provider [phone] Reason for Visit * Reason Onset Date Comments WRONG FACILITY FOR PROCEDURE 08/18/2021 Encounter Details Date Type Department Care Team (Late st Contact Info) Description 08/18/2021 Telephone [facility] GASTROENTEROLOGY [address] [facility] [address] [place] [address] Aristides Morrison MD [address] [facility] [address] [place] [address] WRONG FACILITY FOR PROCEDURE 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 Tobacco Use Types Packs/Day Years Used Date Smoking Tobacco: Never Smokeless Tobacco: Never Alcohol Use Standard Drinks/Week Comments No 0 (1 standard drink = 0.6 oz pur e alcohol) Comments No Sex and Gender Information Value Date Recorded Sex Assigned at Not on file Legal Sex Female 1:22 PM EDT Gender Identity Not on file Sexual Orientation Not on file documented as of this encounter Miscellaneous Notes * Telephone Encounter - Tammy Pastor RegSched Rep - 08/18/2021 9:07 AM EDT CALLED PATIENT AND LEFT HER A VOICEMAIL TO CONFIRM THAT SHE IS SUPPOSED TO ARRIVE TOMORROW FOR HER PROCEDURE WITH DR. MORRISON AT [facility], NOT [facility]. HER LETTER WAS SENT SAYING [facility]. I HAVE CHANGED THE LETTER TO SHOW ACCURATE INFORMATION NOW IN HER MYCHART. I WILL TRY TO CALL HER AGAIN LATER ON IF I HAVE NOT HEARD BACK FROM HER. documented in this encounter Plan of Treatment Not on file documented as of this encounter Visit Diagnoses Not on filedocumented in this encounter Care Teams Business Education Teacher Relationship Specialty Start Date End Date Hermila Orlando APRN [address] [place] [address] PCP - General Nurse Practitioner 12/07/20 documented as of this encounter
--- OUTSIDE RECORDS SUMMARY | 2024-01-11 19:00 | XMS_ITS | Encounter Summary ---
Author Organization [facility] Address [address] [place] [address] Care Team Providers Care Operational Risk Manager Name Role Phone OrlandoHermila kessler TERESA Primary Care Provider [phone] Encounter Details Date Type Department Care Team (Late st Contact Info) Description 05/04/2021 Telephone [facility] GASTROENTEROLOGY [address] [facility] [address] [place] [address] Jacky Damon, PROTECTIVE CLOTHING ISSUER [address] [place] [address] 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 Tobacco Use Types Packs/Day Years [...] encounter Miscellaneous Notes * Telephone Encounter - Chata Judge LPN - 05/04/2021 1:58 PM EDT I tried returning patients call today on the number listed with us as her contact number and it is out of service. documented in this encounter Plan of Treatment Not on file documented as of this encounter Visit Diagnoses Not on filedocumented in this encounter Additional Health Concerns Infection Onset Date Last Indicated Resolved Time COVID Screen (preop/placement) 04/29/2021 08/16/2021 08/16/2021 10:45 PM EDT documented as of this encounter Care Teams Operational Risk Manager Relationship Specialty Start Date End Date Hermila Orlando APRN [address] [place] [address] PCP - General Nurse Practitioner 12/07/20 documented as of this encounter
--- OUTSIDE RECORDS SUMMARY | 2024-01-11 19:00 | XMS_ITS | Encounter Summary ---
[facility] Organization [facility] Address [address] [place] [address] Care Team Providers Care Records Tech Name Role Phone Hermila Orlando APRN Primary Care Provider [phone] Encounter Details Date Type Department Care Team (Latest Contact Info) Description 08/16/2021 3:30 PM EDT Clinical Support No Requirements [facility] COVID19 [facility] PREADMISSION TESTING [address] [address] Encounter for preprocedure screening laboratory testing for COVID-19 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 Tobacco Use Types Packs/Day Years [...] on file documented as of this encounter Plan of Treatment Not on file documented as of this encounter Procedures Procedure Name Priority Date/Time Associated Diagnosis Comments COVID-19, APTIMA PANTHER ASHLEY IN-HOUSE ROUTE SALESMAN/OP SWAB IN UTM/VTM/SALINE TRANSPORT MEDIA 24-48 HR TAT Routine 08/16/2021 3:37 PM EDT Encounter for preprocedure screening laboratory testing for COVID-19 COVID PRE-OP / PRE-PROCEDURE SCREENING ORDER (NO ISOLATION) Routine 08/16/2021 3:37 PM EDT Encounter for preprocedure screening laboratory testing for COVID-19 documented in this encounter Results * COVID-19, APTIMA PANTHER ASHLEY IN-HOUSE ROUTE SALESMAN/OP SWAB IN UTM/VTM/SALINE TRANSPORT MEDIA 24HR TAT - Swab,Nasopharynx (08/16/2021 3:37 PM EDT) COVID19 Not Detected Not Detected - Ref. Range HOLOGIC PANTHER 08/16/2021 10:45 PM EDT [facility] Swab Nasopharyngeal structure / Unknown Collection / Unknown 08/16/2021 3:37 PM EDT 08/16/2021 3:37 PM EDT Narrative [facility] - 08/16/2021 10:45 PM EDT Fact sheet for providers: https://www.fda.gov/media/054320/download Fact sheet for patients: https://www.fda.gov/media/505075/download Test performed by RT PCR. Aristides Mai MD MICROBIOLOGY - GENERAL OR DERABLES Final Result [facility]
[address] [place] [address], documented in this encounter Visit Diagnoses Diagnosis Encounter for preprocedure screening laboratory testing for COVID-19 documented in this encounter Additional Health Concerns Infection Onset Date Last Indicated Resolved Time COVID Screen (preop/placement) 04/29/2021 08/16/2021 08/16/2021 10:45 PM EDT documented as of this encounter Care Teams Records Tech Relationship Specialty Start Date End Date Hermila Orlando APRN [address] [place] [address] PCP - General Nurse Practitioner 12/07/20 documented as of this encounter
--- OUTSIDE RECORDS SUMMARY | 2024-01-11 19:00 | XMS_ITS | Encounter Summary ---
Author Organization [facility] Address [address] [place] [address] Care Team Providers Care Child And Family Services Worker Name Role Phone Hermila Orlando SLASHER Primary Care Provider [phone] Reason for Visit * Reason Comments Wound Check Encounter Details Date Type Department Care Team (Late st Contact Info) Description 12/16/2022 2:47 PM EDT - 12/16/2022 5:19 PM EDT Emergency [facility] [address] [place] [address] Ismael Lainez MD [address] [place] [address] History of breast lump/mass excision (Primary Dx); Change or removal of surgical wound dressing Discharge Disposition: Home or Self Care 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 Tobacco Use Types Packs/Day Years Used Date Smoking Tobacco: Never Smokeless Tobacco: Never Alcohol Use Standard Drinks/Week Comments No 0 (1 standard drink = 0.6 oz pur e alcohol) Abuse Screen Answer Date Recorded Feels Unsafe at Home or Work/School no 12/16/2022 Feels Threatened by Someone no 11/21 Does Anyone Try to Keep You From Having Contact with Others or Doing Things Outside Your Home? no 12/16/2022 Physical Signs of Abuse Present no 12/16/2022 Housing Stability Answer Date Recorded Current Living Arrangements Not on file 10/2022 Potentially Unsafe Housing Conditions Not on lauryn e 11/28/2022 Family and Community Support Answer Jaya e Recorded Help with Day-to-Day Activities Not on file 11/28/2022 Lonely or Isolated Not on file 11/28/2022 Employment Answer Date Recorded Do you want help finding or keeping work or a mattie b? Not on file 11/28/2022 Disabilities Answer Date Recorded Concentrating, Remembering, or Making Decisions Difficulty Not on file 11/28/2022 Doing Errands Independently Difficulty Not on fi le 11/28/2022 Education Answer Date Recorded Help with school or training? Not on file Preferred Language Not on file 11/28/2022 Comments No Sex and Gender Information Value Date Recorded Sex Assigned at Not on file Legal Sex Female 1:22 PM EDT Gender Identity Not on file Sexual Orientation Not on file documented as of this encounter Last Filed Vital Signs Vital Sign Reading Time Taken Comments Blood Pressure 142/94 12/16/2022 2:44 PM EDT Pulse 90 12/16/2022 2:44 PM EDT Temperature 36.9 ??C (98.4 ??F) 12/16/2022 2:44 PM ED T Respiratory Rate 18 12/16/2022 2:44 PM EDT Oxygen Saturation 96% 12/16/2022 2:44 PM EDT Inhaled Oxygen Concentration - - Weight 143 kg (315 lb) 12/16/2022 2:44 PM EDT Height 167.6 cm (5' 6 ) 12/16/2022 2:44 PM EDT Body Mass Index 50.84 12/16/2022 2:44 PM EDT documented in this encounter Discharge Instructions * Discharge Instructions* Catracho White APRN - 12/16/2022 4:59 PM EDT Follow-up with a comprehensive breast center for wound check on your left breast, or the general surgery service here at [facility] [place] * Attachments The following attachments cannot be sent through Care Everywhere. * Incision Care Adult [id number] (Sudanese) * How to Change Your Wound Dressing Uban-al-Vaiv (Sudanese) documented in this encounter Medications at Time of Discharge Cariprazine HCl (Vraylar) 3 MG capsule capsule Take by mouth Daily. cephalexin (KEFLEX) 500 MG capsule Take 1 capsule by mouth 4 (Four) Times a Day. 20 capsule 12/16/2022 hydroCHLOROthiazide (HYDRODIURIL) 12.5 MG tablet Take 1 tablet by mouth Daily. lamoTRIgine (LaMICtal) 100 MG tablet Take 2 tablets by mouth Daily. metFORMIN (GLUCOPHAGE) 1000 MG tablet Take 1 tablet by mouth 2 (Two) Times a Day With Meals. ondansetron ODT (ZOFRAN-ODT) 4 MG disintegrating tabletIndications:Ex posure to COVID-[address] 1 tablet on the tongue Every 6 (Six) Hours As Needed for Nausea or Vomiting. 10 tablet 03/22/2021 pantoprazole (PROTONIX) 40 MG EC tablet Take 1 tablet by mouth two times daily 180 tablet 3 04/14/2021 propranolol (INDERAL) 40 MG tablet Take 1 tablet by mouth 3 (Three) Times a Day. topiramate (TOPAMAX) 100 MG tablet Take 1 tablet by mouth 2 (Two) Times a Day. documented as of this encounter ED Notes * Cindy Catracho Salinas, SLASHER - 12/16/2022 5:00 PM EDT Subjective History of Present Illness is a 2-year-old female accompanied by her boyfriend, who reports she hada left breast excision of an abscess yesterday at [facility] by general surgeon Dr. Brannon. Patient reports she was not given any wound care instructions, and she wants to know what to do for her dressing change. Review of Systems Constitutional: Negative. HENT: Negative. Respiratory: Negative. Cardiovascular: Negative. Gastrointestinal: Negative. Genitourinary: Negative. Musculoskeletal: Negative. Skin: Positive for wound. Neurological: Negative. Hematological: Negative. Psychiatric/Behavioral: Negative. Past Medical History: Diagnosis Date Anxiety Depression Diabetes mellitus diagnosed , checks fsbg daily Endometriosis Eosinophilic esophagitis Fibroid tumor GERD (gastroesophageal reflux disease) Hiatal hernia History of appendectomy 07/12/2019 [facility] Hypertension borderline, no meds prescribed Migraine Ovarian cyst Pneumonia PONV (postoperative nausea and vomiting) Wears glasses Allergies Allergen Reactions Augmentin [Amoxicillin-Pot Clavulanate] Anaphylaxis Hives, swollen lips. Bee Venom Anaphylaxis Lortab [Hydrocodone-Acetaminophen] Swelling Past Surgical History: Procedure Laterality Date SECTION CHOLECYSTECTOMY COLONOSCOPY N/A 06/13/2019 Procedure: COLONOSCOPY; Surgeon: Virgil Wallace MD; Location: [facility]; Service: Gastroenterology; Laterality: N/A; COLONOSCOPY N/A 02/05/2020 Procedure: COLONOSCOPY; Surgeon: Aristides Mai MD; Location: [facility]; Service: Gastroenterology; Laterality: N/A; DILATATION AND CURETTAGE ENDOSCOPY N/A 06/13/2019 Procedure: ESOPHAGOGASTRODUODENOSCOPY; Surgeon: Virgil Wallace MD; Location: [facility]; Service: Gastroenterology; Laterality: N/A; ENDOSCOPY several most recent ENDOSCOPY 02/05/2020 Procedure: ESOPHAGOGASTRODUODENOSCOPY; Surgeon: Aristides Mai MD; Location: [facility]; Service: Gastroenterology;; ENDOSCOPY N/A 09/04/2020 Procedure: ESOPHAGOGASTRODUODENOSCOPY; Surgeon: Aristides Mai MD; Location: [facility]; Service: Gastroenterology; Laterality: N/A; ENDOSCOPY N/A 12/09/2020 Procedure: ESOPHAGOGASTRODUODENOSCOPY; Surgeon: Aristides Mai MD; Location: [facility]; Service: Gastroenterology; Laterality: N/A; HYSTERECTOMY Partial TONSILLECTOMY TUBAL ABDOMINAL LIGATION Family History Problem Relation Age of Onset Colon cancer Father Colon polyps Father Esophageal cancer Father Colon cancer Paternal Grandmother Colon polyps Paternal Grandmother Esophageal cancer Paternal Grandmother Colon cancer Paternal Grandfather Colon polyps Paternal Grandfather 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 Socioeconomic History Marital status: Single Tobacco Use Smoking status: Never Smokeless tobacco: Never Vaping Use Vaping Use: Never used Substance and Sexual Activity Alcohol use: No Drug use: No Sexual activity: Defer Objective Physical Exam Constitutional: General: She is not in acute distress. Appearance: Normal appearance. She is not ill-appearing. HENT: Head: Normocephalic and atraumatic. Eyes: Extraocular Movements: Extraocular movements intact. Pupils: Pupils are equal, round, and reactive to light. Cardiovascular: Rate and Rhythm: Normal rate. Pulmonary: Effort: Pulmonary effort is normal. Abdominal: General: Abdomen is flat. Palpations: Abdomen is soft. Musculoskeletal: General: Normal range of motion. Skin: Capillary Refill: Capillary refill takes less than 2 seconds. Findings: Lesion and wound present. Comments: Patient has gaping wound on the lateral aspect of the left areola and breast, containing a large amount of gauze packing, which was removed. Patient has what appears to be cauterization scarring in the breast tissue, no gross hemorrhage, however oozing sanguinous drainage is present. Neurological: General: No focal deficit present. Mental Status: She is alert. Psychiatric: Mood and Affect: Mood normal. Behavior: Behavior normal. Procedures ED Course Patient previously evaluated both arms 24, and at 5 PM, wound dressing completed with wet-to-dry gauze packing 1 inch, followed by Vaseline gauze, Mepilex, and stretching tape overlying. Instructed patient to change dressing once daily. Instructed patient to return for any concerns over increasing infection, drainage, symptomatic malaise. Medical Decision Making The patient's presenting symptoms and report of recent procedure, differential diagnosis includes cellulitis, post surgical wound, need for follow-up with breast specialty. Patient will have wound repacked, with instructions on home care, and follow-up with a breast center and general surgery recommendations. Problems Addressed: Change or removal of surgical wound dressing: complicated acute illness or injury History of breast lump/mass excision: complicated acute illness or injury Risk Prescription drug management. Final diagnoses: History of breast lump/mass excision Change or removal of surgical wound dressing ED Disposition ED Disposition ED Disposition Discharge Condition Stable Comment -- Tree Ramirez MD [address] [facility] [address] [place] [address] [facility] [address] [facility] [address] [place] [address] Medication List New Prescriptions cephalexin 500 MG capsule Commonly known as: KEFLEX Take 1 capsule by mouth 4 (Four) Times a Day. Where to Get Your Medications These medications were sent to [facility] [address] [place] [address] [facility] - [phone] - [phone] FX [address] [facility] [address] cephalexin 500 MG capsule Catracho White, TERESA 12/16/22 0260 Cosigned by Ismael Lainez MD at 12/19/2022 5:59 AM EDT Associated attestation - Ismael Lainez MD - 12/19/2022 5:59 AM EDT SUPERVISE: For this patient encounter, I reviewed the APC's documentation, treatment plan, and medical decision making. Ismael Lainez MD 12/19/2022 05:59 EDT documented in this encounter Plan of Treatment Not on file documented as of this encounter Visit Diagnoses Diagnosis History of breast lump/mass excision- Primary Other postprocedural status Change or removal of surgical wound dressing Encounter for change or removal of surgical wound dressing documented in this encounter Administered Medications Inactive Administered Medications - up to 3 most recent administrations Medication Order MAR Action Action Date Dose Rate Site ketorolac (TORADOL) injection 15 mg 15 mg, Intramuscular, Once, On Mon12/16/22 at 1531, For 1 dose, {BKC} If given for pain, use the following pain scale: Mild Pain = Pain Score of 1-3, CPOT 1-2 Moderate Pain = Pain Score of 4-6, CPOT 3-4 Severe Pain = Pain Score of 7-10, CPOT 5-8 Given 12/16/2022 3:24 PM EDT 15 mg Right Deltoid prochlorperazine (COMPAZINE) injection 10 mg 10 mg, Intramuscular, Once, On Mon12/16/22 at 1550, For 1 dose, If multiple N/V medications ordered, use in the following order: Ondansetron, Prochlorperazine, Promethazine. Use PO unless patient refuses or patient unable to swallow. Given 12/16/2022 3:45 PM EDT 10 mg Left Deltoid documented in this encounter Active and Recently Administered Medications Times are shown in EDT. Scheduled Medication Order 12/14/2022 12/15/2022 12/16/2022 ketorolac (TORADOL) injection 15 mg (COMPLETED) 15 mg, Intramuscular, Once, On Mon12/16/22 at 1531, For 1 dose, {BKC} If given for pain, use the following pain scale: Mild Pain = Pain Score of 1-3, CPOT 1-2 Moderate Pain = Pain Score of 4-6, CPOT 3-4 Severe Pain = Pain Score of 7-10, CPOT 5-8 1524 (Given - Provid er: Ivon Mejia RN) prochlorperazine (COMPAZINE) injection 10 mg (COMPLETED) 10 mg, Intramuscular, Once, On Mon12/16/22 at 1550, For 1 dose, If multiple N/V medications ordered, use in the following order: Ondansetron, Prochlorperazine, Promethazine. Use PO unless patient refuses or patient unable to swallow. 1545 (Given - Provid er: Ivon Mejia RN) documented in this encounter Care Teams Child And Family Services Worker Relationship Specialty Start Date End Date Hermila Orlando APRN [address] [place] [address] PCP - General Nurse Practitioner 12/07/20 documented as of this encounter
--- OUTSIDE RECORDS SUMMARY | 2024-01-11 19:00 | XMS_ITS | Encounter Summary ---
Author Organization [facility] Address [address] [place] [address] Care Team Providers Care Loss Control Manager Name Role Phone Hermila Orlando APRN Primary Care Provider [phone] Reason for Visit * Reason Onset Date Comments Med Refill 03/14/2022 Encounter Details Date Type Department Care Team (Late st Contact Info) Description 03/14/[address] [facility] GASTRO[facility]OLOGY [address] [facility] [address] [place] [address] Sofia Sullivan MA 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 Tobacco Use Types Packs/Day Years [...] on filedocumented in this encounter Care Teams Loss Control Manager Relationship Specialty Start Date End Date Hermila Orlando APRN [address] [place] [address] [address] [place] [address] PCP - General Nurse Practitioner 12/07/20 documented as of this encounter
--- OUTSIDE RECORDS SUMMARY | 2024-01-11 19:00 | XMS_ITS | Encounter Summary ---
Author Organization [facility] Address [address] [place] [id number] Care Team Providers Care Computer Forwarding System Markup Clerk Name Role Phone Hermila Orlando APRN Primary Care Provider [phone] Encounter Details Date Type Department Care Team (Late st Contact Info) Description 08/19/2021 9:30 AM EDT Outside Facility Service [facility] GASTROENTEROLOGY [address] [facility] [address] [place] [address] Aristides Mai MD [address] [facility] [address] [place] [address] 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 Tobacco Use Types Packs/Day Years [...] Procedure Name Priority Date/Time Associated Diagnosis Comments ENDOSCOPY, INT 08/19/2021 SCANNED PATHOLOGY 08/19/2021 documented in this encounter Results * ENDOSCOPY, INT (08/19/2021) us Aristides Mai MD INTERFACE NEEDS Final Res ult * SCANNED PATHOLOGY (08/19/2021) us Aristides Mai MD PATHOLOGY/CYTOLOGY ORDERA BLES Final Result documented in this encounter Visit Diagnoses Not on filedocumented in this encounter Care Teams Computer Forwarding System Markup Clerk Relationship Specialty Start Date End Date Hermila Orlando APRN [address] [place] [address] PCP - General Nurse Practitioner 12/07/20 documented as of this encounter
--- OUTSIDE RECORDS SUMMARY | 2024-01-11 19:00 | XMS_ITS | Clinical Summary ---
Author Organization [facility] Address [address] [place] [address] Care Team Providers Care Sales Merchandising Specialist Name Role Phone Hermila Orlando TERESA Primary Care Provider [phone] Allergies Active Allergy Reactions Criticality Noted Date Comments Amoxicillin-Pot Clavulanate Anaphylaxis High 020 Hives, swollen lips. Bee Venom Anaphylaxis High 02/03/2020 Hydrocodone-Acetaminophen Swelling 12/16/2022 Medications ondansetron ODT (ZOFRAN-ODT) 4 MG disintegrating tabletIndications:E xposure to COVID-[address] 1 tablet on the tongue Every 6 (Six) Hours As Needed for Nausea or Vomiting. 10 tablet 2 Active pantoprazole (PROTONIX) 40 MG EC tablet Take 1 tablet by mouth two times daily 180 tablet 3 2 Active lamoTRIgine (LaMICtal) 100 MG tablet Take 2 tablets by mouth Daily. Active topiramate (TOPAMAX) 100 MG tablet Take 1 tablet by mouth 2 (Two) Times a Day. Active Cariprazine HCl (Vraylar) 3 MG capsule capsule Take by mouth Daily. Active metFORMIN (GLUCOPHAGE) 1000 MG tablet Take 1 tablet by mouth 2 (Two) Times a Day With Meals. Active hydroCHLOROthiazide (HYDRODIURIL) 12.5 MG tablet Take 1 tablet by mouth Daily. Active propranolol (INDERAL) 40 MG tablet Take 1 tablet by mouth 3 (Three) Times a Day. Active cephalexin (KEFLEX) 500 MG capsule Take 1 capsule by mouth 4 (Four) Times a Day. 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 019 Endometriosis 07/30/2018 History of gestational diabetes 07/30/2018 History of ovarian cyst 07/30/2018 Borderline personality disorder 07/30/2018 Bipolar 1 disorder 07/30/2018 Elevated hemoglobin A1c 07/30/2018 Anxiety and depression 07/30/2018 Immunizations Name Administration Dates Next Due COVID-19 (PFIZER) Purple Cap Monovalent 03/04/19 21,02/17/2020 Family History Medical History Relation Name Comments Colon cancer Father Colon polyps Father Esophageal cancer Father Colon cancer Paternal Grandfather Colon polyps Paternal Grandfather Colon cancer Paternal Grandmother Colon polyps Paternal Grandmother Esophageal cancer Paternal Grandmother Relation Name Status Comments Father Paternal Grandfather Paternal Grandmother 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 Tobacco Use Types Packs/Day Years Used Date Smoking Tobacco: Never Smokeless Tobacco: Never Alcohol Use Standard Drinks/Week Comments No 0 (1 standard drink = 0.6 oz pur e alcohol) Abuse Screen Answer Date Recorded Unsafe at Home or Work/School Not on file Feels Threatened by Someone? Not on file Does Anyone Keep You from Co ntacting Others or Doint Things Outside the Home? Not on file 12/21/2023 Physical Sign of Abuse Present Not on file 1 Housing Stability Answer Date Recorded Current Living [...] on file Sexual Orientation Not on file Last Filed Vital Signs Vital Sign Reading [...] Mass Index 50.84 12/16/2022 2:44 PM EDT Plan of Treatment Health Maintenance Due Date Last Done Comments Annual Gynecologic Pelvic an d Breast Exam 1988 URINE MICROALBUMIN 1988 Pneumococcal Vaccine 0-64 (1 of 2 - PCV) 1994 DIABETIC EYE EXAM 1998 Hepatitis B (1 of 3 - 19+ 3- dose series) 10/23/2007 TDAP/TD VACCINES (1 - Tdap) 10/23/2007 ANNUAL PHYSICAL 07/18/2016 DIABETIC FOOT EXAM 07/18/2016 PAP SMEAR 05/21/2021 05/21/2018 (Misa ent-Reported (Performed Externally)) INFLUENZA VACCINE 09/21/2023 01/31/2018 COVID-19 Vaccine (5 - 2023-2 5 season) 2023 11/13/2021, 07/08/2020, 03/04/2020, Additional history exists HEMOGLOBIN A1C 03/19/2024 09/17/2023, 08/20, 09/03/2020, Additional history exists HEPATITIS C SCREENING Completed 09/15/2023 , 09/03/2020, 08/30/2018 Procedures Procedure Name Priority Date/Time Associated Diagnosis Comments HEMOGLOBIN A1C Routine 07/19/2019 10:20 AM EDT Hyperglycemia HEPATITIS PANEL, ACUTE Routine 08/30/2018 3:31 PM EDT Screen for sexually transmitted diseases from Last 3 Months or Most Recently Relevant to Health Maintenance Results * (ABNORMAL) Hemoglobin A1c (07/19/2019 10:20 AM EDT) Hemoglobin A1C 6.50(H) 4.80 - 5.60 % [facility] Comment: Hemoglobin A1C Ranges: Increased Risk for Diabetes ??5.7% to 6.4% Diabetes ? >= 6.5% Diabetic Goal ?< 7.0% Blood 07/19/2019 10:2 0 AM EDT 07/19/2019 Narrative [facility] ([facility]) - 07/20/2019 3:06 AM EDT Performed at: ??01 - [address] ??[id number] Slip Cover Maker: Calixto Renner MD, Phone: ??[phone] Patient Fasting: ??Y Radha Chau DO LAB BLOOD ORDERABLES Final Result [facility] ([facility]BULATORY) [address] [place] [address], [facility] [address] [place] [address], * Hepatitis Panel, Acute (08/30/2018 3:31 PM EDT) Hep A IgM Negative Negative [facility] Hepatitis B Surface Ag Negative Negative [facility] Hep B Core IgM Negative Negative [facility] Hep C Virus Ab <0.1 0.0 - 0.9 s/co ratio [facility] Comment: ?Negative: ? < 0.8 ? Indeterminate: 0.8 - 0.9 ?Positive: ? > 0.9 The CDC recommends that a positive HCV antibody result be followed up with a HCV Nucleic Acid Amplification test (022281). Blood 08/30/2018 3:31 PM EDT 08/30/2018 Narrative [facility] (AMBULATORY) - 08/31/2018 4:08 PM EDT Performed at: ??01 - [facility] [address] [place] [address] ??[id number] Slip Cover Maker: Navjot Sanhces PhD, Phone: ??[phone] Radha Chau DO LAB BLOOD ORDERABLES Final Result Performing Organization Address City/State/[facility] Co de Phone Number [facility] (AMBULATORY) [address] [place] [id number], [place] [phone] [facility] [address] [place] [address], from Last 3 Months or Most Recently Relevant to Health Maintenance Insurance [facility] MEDICAID Advance Directives * CPR (Attempt to Resuscitate) (Latest Code Status on File) Date Activated Date Inactivated Comments 06/12/2019 2:27 PM 06/14/2019 2:40 PM Question Answer Comments Code Status (Patient has no pulse and is not breathing): CPR (Attempt to Resuscitate) Medical Interventions (Patie nt has pulse or is breathing): Full Care Teams Sales Merchandising Specialist Relationship Specialty Start Date End Date Hermila Orlando APRN [address] [place] [address] PCP - General Nurse Practitioner 12/07/20
--- OUTSIDE RECORDS SUMMARY | 2024-01-11 19:00 | XMS_ITS | Encounter Summary ---
Author Organization [facility] Address [address] [place] [address] Care Team Providers Care Mortgage Assistant Name Role Phone Hermila Orlando TERESA Primary Care Provider [phone] Encounter Details Date Type Department Care Team (Late st Contact Info) Description 05/17/2022 Telephone [facility] GASTROENTEROLOGY [address] [facility] [address] [place] [address] Jacky Damon, TRANSIT PLANNING MANAGER [address] [place] [address] 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 Tobacco Use Types Packs/Day Years [...] encounter Miscellaneous Notes * Telephone Encounter - Aziza Blood RegSched Rep - 05/17/2022 8:40 AM EDT X1-LVM FOR PT TO CALL OFFICE TO SCHEDULE APPOINTMENT. documented in this encounter Plan of Treatment Not on file documented as of this encounter Visit Diagnoses Not on filedocumented in this encounter Care Teams Mortgage Assistant Relationship Specialty Start Date End Date Hermila Orlando APRN [address] [place] [address] PCP - General Nurse Practitioner 12/07/20 documented as of this encounter
--- OUTSIDE RECORDS SUMMARY | 2024-01-11 19:00 | XMS_ITS | Encounter Summary ---
Author Organization [facility] Address [address] [place] [address] Care Team Providers Care Rate Clerk Passenger Name Role Phone Hermila Orlando APRN Primary Care Provider [phone] Encounter Details Date Type Department Care Team (Late st Contact Info) Description 02/03/2022 8:30 AM EST Outside Facility Service [facility] GASTROENTEROLOGY [address] [facility] [address] [place] [address] Aristides Mai MD [address] [facility] [address] [place] [address] 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 Tobacco Use Types Packs/Day Years [...] Priority Date/Time Associated Diagnosis Comments ENDOSCOPY, INT 02/03/2022 SCANNED PATHOLOGY 02/03/2022 documented in this encounter Results * ENDOSCOPY, INT (02/03/2022) us Aristides Mai MD INTERFACE NEEDS Final Res ult * SCANNED PATHOLOGY (02/03/2022) us Aristides Mai MD PATHOLOGY/CYTOLOGY ORDERA BLES Final Result documented in this encounter Visit Diagnoses Not on filedocumented in this encounter Care Teams Rate Clerk Passenger Relationship Specialty Start Date End Date OrlandoHermila APRN [address] [place] [address] PCP - General Nurse Practitioner 12/07/20 documented as of this encounter
--- OUTSIDE RECORDS SUMMARY | 2024-01-11 19:00 | XMS_ITS | Encounter Summary ---
Author Organization [facility] Address [address] [place] [id number] Care Team Providers Care Senior Talent Management Consultant Name Role Phone Hermila Orlando TERESA Primary Care Provider [phone] Reason for Visit * Reason Onset Date Comments CANCELLING PROCEDURE 06/21/2021 Encounter Details Date Type Department Care Team (Late st Contact Info) Description 06/21/2021 Telephone [facility] [address] [facility] [address] [place] [address] Aristides Mai MD [address] [facility] [address] [place], [place] [id number] CANCELLING PROCEDURE 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 Tobacco Use Types Packs/Day [...] Miscellaneous Notes * Telephone Encounter - Tammy PastorAlexandra Rep - 06/21/2021 9:48 AM EDT CALLED PATIENT'S NUMBER AND I CAN'T REACH HER. PHONE MUST BE DISCONNECTED- CALLED EMERGENCY CONTACT, HER MOTHER TO TRY TO TELL HER WE'RE TRYING TO REACH HER DAUGHTER REGARDING HER PROCEDURE. TAWNY SAID SHE WOULD LET IVON KNOW, SHE WILL MESSAGE HER ON [employer], BECAUSE HER PHONE DOESN'T HAVE ANY MINUTES AND SHE WILL TELL HER TO CALL US BACK ON HER BOYFRIEND'S NUMBER TO RE-SCHEDULE BECAUSE SHE DID NOT KEEP (TWO) COVID TEST THAT WE HAVE SET UP FOR HER SO SHE CANNOT HAVE HER PROCEDURE TOMORROW. documented in this encounter Plan of Treatment Not on file documented as of this encounter Visit Diagnoses Not on filedocumented in this encounter Additional Health Concerns Infection Onset Date Last Indicated Resolved Time COVID Screen (preop/placement) 04/29/2021 08/16/2021 08/16/2021 10:45 PM EDT documented as of this encounter Care Teams Senior Talent Management Consultant Relationship Specialty Start Date End Date Hermila Orlando APRN [address] [place] [address] PCP - General Nurse Practitioner 12/07/20 documented as of this encounter
--- OUTSIDE RECORDS SUMMARY | 2024-01-11 19:00 | XMS_ITS | Encounter Summary ---
Author Organization [facility] Address [address] [place] [id number] Care Team Providers Care Cytopathology Technologist Name Role Phone Hermila Orlando APRN Primary Care Provider [phone] Encounter Details Date Type Department Care Team (Late st Contact Info) Description 03/29/2022 7:30 AM EST Outside Facility Service [facility] GASTROENTEROLOGY [address] [facility] [address] [place] [address] Aristides Mai MD [address] [facility] [address] [place] [address] 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 Tobacco Use Types Packs/Day Years [...] Procedure Name Priority Date/Time Associated Diagnosis Comments SCANNED - COLONOSCOPY 03/29/2022 documented in this encounter Results * SCANNED - COLONOSCOPY (03/29/2022) Aristides Mai MD CHART REVIEW TABS Magdalena l Result documented in this encounter Visit Diagnoses Not on filedocumented in this encounter Care Teams Cytopathology Technologist Relationship Specialty Start Date End Date Hermila Orlando APRN [address] [place] [address] PCP - General Nurse Practitioner 12/07/20 documented as of this encounter
--- OUTSIDE RECORDS SUMMARY | 2024-01-11 19:00 | XMS_ITS | Encounter Summary ---
Author Organization [facility] Address [address] [place] [address] Care Team Providers Care Finish Repair Worker Name Role Phone Hermila Orlando APRN Primary Care Provider [phone] Reason for Visit * Reason Onset Date Comments Med Refill 08/31/2021 Encounter Details Date Type Department Care Team (Late st Contact Info) Description 08/31/[address] [facility] GASTROENTEROLOGY [address] [facility] [address] [place] [address] Sofia Sullivan MA 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 [...] encounter Miscellaneous Notes * Telephone Encounter - Sofia Sullivan MA - 08/31/2021 2:55 PM EDT Patient needs a refill on her budesonide documented in this encounter Plan of Treatment Not on file documented as of this encounter Visit Diagnoses Not on filedocumented in this encounter Care Teams Finish Repair Worker Relationship Specialty Start Date End Date Hermila Orlando APRN [address] [place] [address] PCP - General Nurse Practitioner 12/07/20 documented as of this encounter
--- OUTSIDE RECORDS SUMMARY | 2024-01-11 19:00 | XMS_ITS | Encounter Summary ---
Author Organization [facility] Address [address] [place] [address] Care Team Providers Care Store Receiving Clerk Name Role Phone Hermila Orlando TERESA Primary Care Provider [phone] Reason for Visit * Reason Onset Date Comments Med Refill 08/30/2021 Encounter Details Date Type Department Care Team (Late st Contact Info) Description 08/30/2021 Refill [facility] GASTROENTEROLOGY [address] [facility] [address] [place] [address] Jacky Damon APRN [address] [place] [address] 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 Tobacco Use Types Packs/Day Years [...] encounter Miscellaneous Notes * Telephone Encounter - Jacky Damon APRN - 08/31/2021 7:19 AM EDT . * Telephone Encounter - Chata Judge LPN - 08/30/2021 2:35 PM EDT Rx Refill Note Requested Prescriptions Pending Prescriptions Disp Refills ??? budesonide (PULMICORT) 1 MG/2ML nebulizer solution 60 each 2 Sig: Mix one vial in 5 packets of Splenda and swallow twice daily. Do not eat or drink for 30 minutes then rinse mouth with water in 30 minutes. Last office visit with prescribing clinician: 04/29/2021 Next office visit with prescribing clinician: 09/20/2021 Chata Judge LPN 08/30/21, 14:35 EDT documented in this encounter Plan of Treatment Not on file documented as of this encounter Visit Diagnoses Not on filedocumented in this encounter Care Teams Store Receiving Clerk Relationship Specialty Start Date End Date Hermila Orlando APRN [address] [place] [address] PCP - General Nurse Practitioner 12/07/20 documented as of this encounter
--- NOTE | 2024-01-11 19:01 | ED_ITS ---
<Statement entered by Yojana Morales DO - 01/11/24 21:28> I was consulted by the JADIA, and we discussed the complexity of the problems being addressed. I approved the treatment and management plan for this patient's care in the emergency department, thus performing a substantive portion of the medical decision making. I did give the patient 3 doses of pain medication to take at home as needed for severe breakthrough pain, as she does have a flareup of postoperative pain in the setting of cough related to viral upper respiratory infection. Stepan was reviewed by myself. Risk was explained to the patient. Yojana Morales DO Discharge Plan Prescriptions Prescriptions: New hydrocodone-acetaminophen 5-325 mg tablet 1 tab PO Q8H PRN (Reason: pain) Qty: 3 0RF ondansetron 4 mg tablet,disintegrating 4 mg PO Q8H PRN (Reason: nausea and vomiting) 4 Days Qty: 12 0RF jksicntzwhnupad-[id number] [Bromfed DM] 2-30-10 mg/5 mL syrup 5 ml PO Q4H PRN (Reason: sinus symptoms) Qty: 118 0RF No Action ketorolac 10 mg tablet 10 mg PO Q8H Qty: 90 0RF Rx Instructions: maximum total duration of 5 days from all oral, intranasal, or parenteral formulations ketorolac 10 mg tablet 10 mg PO Q6H PRN (Reason: pain) Qty: 14 0RF metformin 1,000 mg tablet 1,000 mg PO BID lisinopril 20 mg tablet 20 mg PO DAILY Patient Comments: TAKE 1 TABLET BY MOUTH ONCE DAILY propranolol 20 mg tablet 20 mg PO BID Patient Comments: TAKE 1 TABLET BY MOUTH TWICE DAILY prazosin 2 mg Capsule 2 mg PO HS hydrochlorothiazide 12.5 mg Tablet 12.5 mg PO DAILY ondansetron HCl 4 mg tablet 4 mg PO Q8H PRN (Reason: nausea and vomiting) 5 Days Qty: 30 0RF pantoprazole [Protonix] 40 mg tablet,delayed release (DR/EC) 40 mg PO DAILY lamotrigine [Lamictal] 200 mg tablet 200 mg PO DAILY Patient Comments: TAKE ONE TABLET BY MOUTH EVERY DAY Vraylar 3 mg capsule 3 mg PO DAILY Patient Comments: TAKE ONE CAPSULE BY MOUTH EVERY DAY mupirocin [Centany] 2 % ointment 1 applic topical TID oxycodone-acetaminophen [Percocet] 5-325 mg tablet 1 tab PO Q6H PRN (Reason: post-op pain) Qty: 17 0RF Rx Instructions: Noted allergy of hydrocodone; however, patient has taken hydrocodone on multiple occasions without adverse event. Altered to Percocet for current prescription. Patient/family aware and understands she will require close monitoring. Referrals Follow up/Referrals: Joyce Shaw [Primary Care Provider] - See instructions Activity Restrictions/Add. Instructions Additional Instructions/Restrictions: As we discussed please use the incentive spirometry to help mobilize her lungs. I have sent Bromfed into your pharmacy which you can take every 4 hours. Follow-up with your PCP for any worsening signs or symptoms or return to the ER as needed. Clinical Impressions Clinical Impression: Viral URI, Acute chest wall pain Print Language Print Language: Pashto Discharge ED Provider: Yojana Morales General Adult HPI <NAM Lozano - Last Filed: 01/11/24 21:13> General Chief complaint: Upper Respiratory Infection Stated complaint: cough, tala, MILLS Time Seen by Provider: 01/11/24 18:57 Related Data Home Medications ?Medication ?Instructions ?Recorded ?Confirmed metformin 1,000 mg tablet 1,000 mg PO BID Diabetes 04/26/22 09/06/23 lisinopril 20 mg tablet 20 mg PO DAILY Blood pressure 07/19/22 09/06/23 prazosin 2 mg capsule 2 mg PO HS Nightmares 07/19/22 09/06/23 propranolol 20 mg tablet 20 mg PO BID Blood pressure 07/19/22 09/06/23 hydrochlorothiazide 12.5 mg tablet 12.5 mg PO DAILY Diuretic 09/01/22 09/06/23 cariprazine 3 mg capsule (Vraylar) 3 mg PO DAILY mood 09/20/22 09/06/23 lamotrigine 200 mg tablet 200 mg PO DAILY mood 09/20/22 09/06/23 (Lamictal) pantoprazole 40 mg tablet,delayed 40 mg PO DAILY Acid Reflux 09/20/22 09/06/23 release (Protonix) mupirocin 2 % topical ointment 1 applic topical TID 08/08/23 09/06/23 (Centany) Previous Rx's ?Medication ?Instructions ?Recorded ketorolac 10 mg tablet 10 mg PO Q6H PRN pain #14 tabs 11/16/22 ondansetron HCl 4 mg tablet 4 mg PO Q8H PRN nausea and 07/18/23 vomiting 5 days #30 tabs oxycodone-acetaminophen 5 mg-325 1 tab PO Q6H PRN post-op pain #17 08/10/23 mg tablet (Percocet) tabs ketorolac 10 mg tablet 10 mg PO Q8H #90 tabs 09/06/23 gkfiivqtyteyusl-hvhlnujcffaqfcc-TB 5 ml PO Q4H PRN sinus symptoms 01/11/24 2 mg-30 mg-10 mg/5 mL oral syrup #118 mL (Bromfed DM) hydrocodone 5 mg-acetaminophen 325 1 tab PO Q8H PRN pain #3 tabs 01/11/24 mg tablet ondansetron 4 mg disintegrating 4 mg PO Q8H PRN nausea and 01/11/24 tablet vomiting 4 days #12 tabs Allergies Allergy/AdvReac Type Severity Reaction Status Date / Time hydrocodone Allergy Mild Rash Verified 09/06/23 10:19 amoxicillin Allergy Verified 09/06/23 10:19 silver (From Tegaderm AG Allergy Rash Verified 09/06/23 10:19 Mesh) venom-honey bee Allergy Unknown Verified 09/06/23 10:19 allergy reaction venom-wasp protein Allergy Unknown Verified 09/06/23 10:19 allergy reaction <Yojana Morales DO - Last Filed: 01/11/24 19:07> History of Present Illness HPI narrative: This patient is a 33-year-old female with a history of cystic breast with recurrent breast infections presenting to the emergency department for evaluation with concern for cough, congestion, nausea, vomiting, and diarrhea for several days. Initially started out as frequent sneezing. She notes that she is having significant chest wall pain with the episodes of coughing. She had a right unilateral mastectomy 12/25/23. She still has good drainage from her PARK drains from her surgery. Drainage is serosanguineous no purulence. She denies any changes to her incision such as redness, warmth, or pus draining from the wounds. She became concerned that she could have a postoperative infection given all of her symptoms. [facility] <NAM Lozano - Last Filed: 01/11/24 21:13> [facility] Disclaimer: The information contained in this section may have been updated after the patient was seen, as this information can be updated by other users. Medical History Sepsis Food impaction of esophagus Esophageal cancer Bilateral nipple discharge Palpitations DM2 (diabetes mellitus, type 2) HTN (hypertension) Sinus tachycardia Abnormal electrocardiogram [ECG] [EKG] Dizziness Edema of both lower extremities Dyspnea Chest pain Suicide attempt by drug ingestion Surgical History History of breast surgery Hx of dilation and curettage x2 Hx of umbilical hernia repair History of hysterectomy History of tonsillectomy History of appendectomy History of laparoscopic cholecystectomy History of colonoscopy History of section x 2 Family History Other Family history of cancer Family history of hypertension 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 (Updated 01/11/24 @ 21:13 by NAM Lozano) Smoking Status: Never smoker second hand exposure: No alcohol intake: never substance use type: denies use, former substance user and crack/cocaine current occupational status: employed household members: children housing: house lives independently: Yes marital status: number of children: 2 education level: high school service: No current occupation: [employer] current occupational exposures/hazards: No caffeine: Yes special sofia needs: No agree to transfusion: No do you feel safe at home: Yes victim of physical abuse: No victim of emotional abuse: No victim of sexual abuse: No would you like helpful sources: No Other Medical History Have you received the Flu Vaccine for this season: No Have you received the Pneumonia Vaccine: No <NAM Lozano - Last Filed: 01/11/24 21:13> ROS Obtained: Yes Systems reviewed as appropriate & no additional complaints except as documented Physical Exam <NAM Lozano - Last Filed: 01/11/24 21:13> General General appearance: alert and in no apparent distress Respiratory Respiratory exam: Present wheezes (Late bibasilar end expiratory wheezes); Absent normal lung sounds bilaterally Cardiovascular Cardiovascular exam: Present tachycardia Neurological Exam Neurological exam: Present alert and oriented X3 Medical Decision Making <NAM Lozano - Last Filed: 01/11/24 21:13> Medical Records Medical records reviewed: Yes I reviewed the patient's medical records. Screening: Per USPSTF and CDC recommendations, given the prevalence of disease in our region, it is our hospital?s policy to screen for HIV and viral Hepatitis for all patients aged 18 and over and those with ongoing risk factors. Stepan Inquiry Pt receiving controlled substance: No Vital Signs: 01/11/24 18:52 01/11/24 19:30 01/11/24 20:30 Temperature 97.8 F Temperature Source Oral Pulse Rate 131 H 120 H Pulse Rate [Right] 125 H Respiratory Rate 18 Blood Pressure 151/98 H Blood Pressure [Right Arm] 132/69 Blood Pressure Mean [Right Arm] 90 02 Sat by Pulse Oximetry 93 L 93 L 93 L Lab Data Lab results reviewed: Yes I reviewed the patient's lab results. Lab Results 01/11/24 20:10: WBC 12.4 H, RBC 4.69, Hgb 14.3, Hct 39.7, MCV 84.7, MCH 30.4, M CHC 35.9 H, RDW 13.7, Plt Count 303, MPV 7.9, Neut % (Auto) 62.1, Lymph % (Auto) 22.1, [place] % (Auto) 5.4, Eos % (Auto) 9.1, Baso % (Auto) 1.3, Neut # (Auto) 7.7, Lymph # (Auto) 2.8, [place] # (Auto) 0.7, Eos # (Auto) 1.1 H, Baso # (Auto) 0.2, Sodium 136, Potassium 3.7, Chloride 102, Carbon Dioxide 23, Anion Gap 14.7, BUN 9, Creatinine 0.50 L, Estimated Creat Clear 141, Estimated GFR 140, Est GFR ( Amer) 170, Glucose 176 H, Calcium 9.5, Total Bilirubin 0.5, AST 28, ALT 36, Alkaline Phosphatase 61, Total Protein 8.1, Albumin 4.7, Globulin 3.4 H, Albumin/Globulin Ratio 1.4 01/11/24 20:10 01/11/24 20:10 Orders (Tests/Meds): ED MEDICATIONS Discontinued Medications Generic Name Dose Route Start Last Admin Trade Name Freq PRN Reason Stop Dose Admin Albuterol/Ipratropium 3 ml 01/11/24 19:46 01/11/24 19:55 Ipratropium/Albuterol 3 Ml Neb IH 01/11/24 19:47 3 ml ONCE ONE Administration Ondansetron HCl 4 mg 01/11/24 19:58 01/11/24 20:03 Ondansetron 4mg Odt SL 01/11/24 19:59 4 mg ONCE ONE Administration ORDERS Category Date Time Status CXR 2 view (NOT portable) [XR chest 2V] Stat Exams 01/11/24 19:03 Completed CBC w/Auto Diff [Complete Blood Count Auto Diff] Stat Lab 01/11/24 20:10 Completed CMP [Comprehensive Metabolic Panel] Stat Lab 01/11/24 20:10 Completed Full Resp Panel w/COVID ([facility]) Routine Lab 01/11/24 19:27 Received HIV (1&2) Antibody Rapid Stat Lab 01/11/24 20:10 Received Hep C Ab with Reflex to RNA Stat Lab 01/11/24 20:10 Received Medical Decision Narrative: In summary patient is a 33-year-old female who presents to the emergency department for evaluation of cough congestion and increasing right-sided chest pain. Patient is initially normotensive at 132/69 however tachycardic at 125 upon arrival, but afebrile. Physical exam is remarkable for a clean surgical incision that appears to be healing well without evidence of infection edema or fluctuance or dehiscence and clear serous fluid out of her PARK drains. Auscultation of breath sounds reveals late end expiratory bibasilar wheezes but no increased work of breathing. Patient has boggy nasal mucosa however she does not have purulent drainage.. Differential diagnosis includes viral upper respiratory tract infection versus bacterial upper respiratory tract infection versus mobilization pain etc. Initial workup will be conducted with hematologic labs plain film chest x-ray.. Initial interventions include Tylenol Motrin oxycodone. Initial workup reviewed by me shows a white count of 12,000 however she has no neutrophilic shift, my informal interpretation of her plain film chest x-ray shows no acute processes and appears to have no evidence of fluid collection in the chest wall. Upon repeat evaluation patient reported feeling some better after initial intervention. Given this via shared decision making patient is appropriate for discharge home with checking the portal for her respiratory panel and strict return precautions. I will send a prescription for Bromfed into her pharmacy. <Yojana Morales, DO - Last Filed: 01/11/24 19:07> Vital Signs: 01/11/24 18:52 01/11/24 19:30 01/11/24 20:30 Temperature 97.8 F Temperature Source Oral Pulse Rate 131 H 120 H Pulse Rate [Right] 125 H Respiratory Rate 18 Blood Pressure 151/98 H Blood Pressure [Right Arm] 132/69 Blood Pressure Mean [Right Arm] 90 02 Sat by Pulse Oximetry 93 L 93 L 93 L Lab Data Lab Results 01/11/24 20:10: WBC 12.4 H, RBC 4.69, Hgb 14.3, Hct 39.7, MCV 84.7, MCH 30.4, M CHC 35.9 H, RDW 13.7, Plt Count 303, MPV 7.9, Neut % (Auto) 62.1, Lymph % (Auto) 22.1, [place] % (Auto) 5.4, Eos % (Auto) 9.1, Baso % (Auto) 1.3, Neut # (Auto) 7.7, Lymph # (Auto) 2.8, [place] # (Auto) 0.7, Eos # (Auto) 1.1 H, Baso # (Auto) 0.2, Sodium 136, Potassium 3.7, Chloride 102, Carbon Dioxide 23, Anion Gap 14.7, BUN 9, Creatinine 0.50 L, Estimated Creat Clear 141, Estimated GFR 140, Est GFR ( Amer) 170, Glucose 176 H, Calcium 9.5, Total Bilirubin 0.5, AST 28, ALT 36, Alkaline Phosphatase 61, Total Protein 8.1, Albumin 4.7, Globulin 3.4 H, Albumin/Globulin Ratio 1.4 Orders (Tests/Meds): ED MEDICATIONS Discontinued Medications Generic Name Dose Route Start Last Admin Trade Name Freq PRN Reason Stop Dose Admin Albuterol/Ipratropium 3 ml 01/11/24 19:46 01/11/24 19:55 Ipratropium/Albuterol 3 Ml Neb IH 01/11/24 19:47 3 ml ONCE ONE Administration Ondansetron HCl 4 mg 01/11/24 19:58 01/11/24 20:03 Ondansetron 4mg Odt SL 01/11/24 19:59 4 mg ONCE ONE Administration ORDERS Category Date Time Status CXR 2 view (NOT portable) [XR chest 2V] Stat Exams 01/11/24 19:03 Completed CBC w/Auto Diff [Complete Blood Count Auto Diff] Stat Lab 01/11/24 20:10 Completed CMP [Comprehensive Metabolic Panel] Stat Lab 01/11/24 20:10 Completed Full Resp Panel w/COVID ([facility]) Routine Lab 01/11/24 19:27 Received HIV (1&2) Antibody Rapid Stat Lab 01/11/24 20:10 Received Hep C Ab with Reflex to RNA Stat Lab 01/11/24 20:10 Received Critical Care <NAM Lozano - Last Filed: 01/11/24 21:13> Critical Care Time Critical Care Time: No
--- OUTSIDE RECORDS SUMMARY | 2024-01-11 19:01 | XMS_ITS | Encounter Summary ---
Author Organization [facility] Address [address] [place] [address] Care Team Providers Care Watch Parts Inspector Name Role Phone Hermila Orlando APRN Primary Care Provider [phone] Reason for Visit * Auth/Cert Specialty Diagnoses / Procedures Referred By Mikayla t Referred To Contact Diagnoses Dysphagia, unspecified type Dysphagia, unspecified type [R13.10] Procedures SD ESOPHAGOGASTRODUODENOSCOPY TRANSORAL DIAGNOSTIC ESOPHAGOGASTRODUODENOSCOPY Referral ID Status Reason Start Date Expiration Date Visits Re quested Visits Authorized [id number] 1 1 Encounter Details Date Type Department Care Team (Late st Contact Info) Description 12/09/2020 1:20 PM EDT Anesthesia Event [facility] [address] [place] [phone] Jair Johnson MD [address] [place] [id number] Anesthesia Record Procedure Summary Procedure Name Responsible Anesthesiologist Anesthesia Start Time Anesthesia Stop Time ESOPHAGOGASTRODUODENOSCOPY Jair Johnson MD 1320 12/09/20 1344 Events Date Time Event Comment 12/09/2020 1014 1319 AN Equip Check 1320 An Start The patient was reevaluated immediately before moderate or deep sedation use and before anesthesia induction. 1320 An Start Data 1325 An Induction 1340 an stop data 1342 Handoff to RN The following has been completed: 1. Identification of Patient, bell family member(s) or patient surrogate 2. Identification of the responsible Practitioner (primary service) 3. Discussion of the pertinent/attainable medical history 4. Discussion of the surgical/procedure course (procedure, reason for surgery, procedure performed) 5. Intraoperative anesthetic management and issue/concerns to include things such as airway, hemodynamics, narcotic, sedation level and paralytic management and intravenous fluids/blood products and urine output during the procedure 6. Expectations/Plans for the early post-procedure period to include things such as anticipated course (anticipatory guidance), complications, need for laboratory or ECG and medication administration 7. Opportunity for questions and acknowledgment of understanding of report from the receiving PACU/ICU team 1344 An Stop Meds Name Total lidocaine 1% 100 mg propofol (DIPRIVAN) injection 400 mg lactated ringers solution Cannot be calc ulated * Agents Name Sevoflurane * Blood No blood administrations on file. Lines, Drains, and Airways Type Details Placement Removal Peripheral IV Placement Date: 11/21 ; Placement Time: 1036; Catheter Size: 20 G; Orientation: Anterior, Right; Location: Forearm; Site Prep: Chlorhexidine; Inserted by: Mabel Slaughter RN; Insertion Attempts: 4; Patient Tolerance: Tolerated well; Removal Date: 12/09/20; Removal Time: 1420 12/09/20 1036 by Norah Gallardo, RADHA 12/09/20 1420 by Vidya Bedoya, RADHA documented in this encounter 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 Tobacco Use Types Packs/Day Years [...] on file documented as of this encounter OR Notes * Anesthesia Postprocedure Evaluation - Kerri Mcnair CRNA - 12/09/2020 1:50 PM EDT Patient: Ivon Erwin Procedure Summary Date: 12/09/20 Room / Location: [facility] Anesthesia Start: 1320 Anesthesia Stop: 134 Procedure: ESOPHAGOGASTRODUODENOSCOPY (N/A ) Diagnosis: Dysphagia, unspecified type (Dysphagia, unspecified type [R13.10]) Surgeons: Aristides Mai MD Provider: Jair Johnson MD Anesthesia Type: general ASA Status: 3 Anesthesia Type: general Vitals Vitals Value Taken Time BP 154/96 12/09/20 1345 Temp 98.3 ??F (36.8 ??C) 12/09/20 1342 Pulse 99 12/09/20 1347 Resp 20 12/09/20 1342 SpO2 95 % 12/09/20 1347 Vitals shown include unvalidated device data. Post Anesthesia Care and Evaluation Patient location during evaluation: PACU Patient participation: complete - patient participated Level of consciousness: awake and alert Pain score: 1 Pain management: adequate Airway patency: patent Anesthetic complications: No anesthetic complications PONV Status: none Cardiovascular status: hemodynamically stable and acceptable Respiratory status: nonlabored ventilation, acceptable, spontaneous ventilation and room air Hydration status: acceptable * Anesthesia Preprocedure Evaluation - Jair Johnson MD - 12/09/2020 10:01 AM EDT Anesthesia Evaluation Patient summary reviewed and Nursing notes reviewed history of anesthetic complications: PONV NPO Solid Status: > 8 hours NPO Liquid Status: > 2 hours Airway Mallampati: III TM distance: >3 FB Neck ROM: full Possible difficult intubation Dental - normal exam Pulmonary (+) pneumonia resolved , decreased breath sounds, Cardiovascular Exercise tolerance: good (4-7 METS) Rhythm: regular Rate: normal (+) hypertension well controlled less than 2 medications, Neuro/Psych (+) headaches, psychiatric history Bipolar, GI/Hepatic/Renal/Endo (+) morbid obesity, hiatal hernia, GERD well controlled, diabetes mellitus type 2 poorly controlled, Musculoskeletal Abdominal (+) obese, Abdomen: soft. Substance History SR. DIRECTOR PRODUCT MANAGEMENT Other arthritis, Anesthesia Plan ASA 3 general intravenous induction Anesthetic plan, all risks, benefits, and alternatives have been provided, discussed and informed consent has been obtained with: patient. Plan discussed with WASTEWATER T[employer]ATMENT PLANT SUPERVISOR. documented in this encounter Plan of Treatment Not on file documented as of this encounter Visit Diagnoses Not on filedocumented in this encounter Administered Medications Inactive Administered Medications - up to 3 most recent administrations Medication Order MAR Action Action Date Dose Rate Site lidocaine (XYLOCAINE) 1 % injection Epidural, As Needed, Starting on Mon12/09/20 at 1326 Given 12/09/2020 1:26 PM EDT 100 mg Propofol (DIPRIVAN) injection Intravenous, As Needed, Starting on Mon12/09/20 at 1325 Given 12/09/2020 1:30 PM EDT 50 mg Given 12/09/2020 1:29 PM EDT 100 mg Given 12/09/2020 1:27 PM EDT 100 mg documented in this encounter Care Teams Watch Parts Inspector Relationship Specialty Start Date End Date Hermila Orlando APRN [address] [place] [address] PCP - General Nurse Practitioner 12/07/20 documented as of this encounter
--- OUTSIDE RECORDS SUMMARY | 2024-01-11 19:01 | XMS_ITS | Encounter Summary ---
Author Organization [facility] Address [address] [place] [address] Care Team Providers Care Social Media Job Titles Name Role Phone Shaw, Joyce TERESA Primary Care Provider [phone] Reason for Visit * Auth/Cert Specialty Diagnoses / Procedures Referred By Mikayla t Referred To Contact Diagnoses Screen for colon cancer Screen for colon cancer [Z12.11] Procedures ND ESOPHAGOGASTRODUODENOSCOPY TRANSORAL DIAGNOSTIC ND COLONOSCOPY FLX DX W/COLLJ SPEC WHEN PFRMD ESOPHAGOGASTRODUODENOSCOPY FOR EOE, COLONOSCOPY FOR FAMILY HX POLYPS Referral ID Status Reason Start Date Expiration Date Visits Re quested Visits Authorized [id number] 1 1 Encounter Details Date Type Department Care Team (Late st Contact Info) Description 02/05/2020 1:56 PM EST Anesthesia Event [facility] [address] [place] [phone] Ivon Foley DO [address] [place] [address] Anesthesia Record Procedure Summary Procedure Name Responsible Anesthesiologist Anesthesia Start Time Anesthesia Stop Time ESOPHAGOGASTRODUODENOSCOPY Ivon Foley DO 0 1356 02/05/20 1439 Events Date Time Event Comment 02/05/2020 1351 1356 AN Equip Check 1356 An Start Data 1356 An Start The patient was reevaluated immediately before moderate or deep sedation use and before anesthesia induction. 1404 An Induction POM Mask 8L O2 1433 an stop data 1438 Handoff to RN The following has been [...] of report from the receiving PACU/ICU team 1439 An Stop Meds Name Total lidocaine PF (XYLOCAINE) local injection 1% 100 mg propofol (DIPRIVAN) 10 mg/ml 150 mg propofol (DIPRIVAN) infusion 10 mg/mL 10 0 mL 595.73 mg ondansetron 2 mg/mL 4 mg lactated ringers infusion 700 mL * Agents Name O2 * Blood No blood administrations on file. Lines, Drains, and Airways Type Details Placement Removal Peripheral IV Placement Date: 01/20 08/09; Placement Time: 1348; Catheter Size: 22 G; Orientation: Right; Location: Antecubital; Site Prep: Alcohol; Inserted by: Jameson GARCIA; Insertion Attempts: 5+; Patient Tolerance: Tolerated well; Removal Date: 02/05/20; Removal Time: 1530 02/05/20 1348 by Juan Thurston RN 02/05/20 1530 by Randal Jarrett RN documented in this encounter 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 Tobacco [...] OR Notes * Anesthesia Postprocedure Evaluation - Kaela Lundy CRNA - 02/05/2020 2:39 PM EST Patient: Ivon Erwin Procedure Summary Date: 02/05/20 [facility] Anesthesia Start: 1356 Anesthesia Stop: 1439 Procedures: ESOPHAGOGASTRODUODENOSCOPY COLONOSCOPY (N/A ) Diagnosis: Screen for colon cancer (Screen for colon cancer [Z12.11]) Surgeon: Aristides Mai MD Provider: Ivon Foley DO Anesthesia Type: general, MAC ASA Status: 3 Anesthesia Type: general, MAC Vitals Vitals Value Taken Time BP 125/76 02/05/20 1438 Temp 98 ??F (36.7 ??C) 02/05/20 1438 Pulse 86 02/05/20 1438 Resp 18 02/05/20 1438 SpO2 99 % 02/05/20 1438 Post Anesthesia Care and Evaluation Patient location during evaluation: PACU Patient participation: complete - patient participated Level of consciousness: awake and alert Pain management: adequate Airway patency: patent Anesthetic complications: No anesthetic complications PONV Status: none Cardiovascular status: hemodynamically stable and acceptable Respiratory status: nonlabored ventilation and acceptable (pom mask) Hydration status: acceptable * Anesthesia Preprocedure Evaluation - Ivon Foley DO - 02/05/2020 1:14 PM EST Anesthesia Evaluation Patient summary reviewed history of anesthetic complications: PONV NPO Solid Status: > 8 hours NPO Liquid Status: > 2 hours Airway Mallampati: II TM distance: >3 FB Neck ROM: full No difficulty expected Dental - normal exam Pulmonary - normal exam breath sounds clear to auscultation (+) pneumonia , (-) no home oxygen Cardiovascular - normal exam ECG reviewed Rhythm: regular Rate: normal (+) hypertension, (-) dysrhythmias, angina, CHF, DVT ROS comment: 02/03/20- nsr Neuro/Psych (+) headaches, psychiatric history Bipolar, (-) seizures, TIA, CVA GI/Hepatic/Renal/Endo (+) morbid obesity, GERD poorly controlled, diabetes mellitus, (-) hepatitis, liver disease, no renal disease Musculoskeletal (-) negative ROS Abdominal 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 Plan discussed with [employer] RO[employer] MAN. documented in this encounter Plan of Treatment Not on file documented as of this encounter Visit Diagnoses Not on filedocumented in this encounter Administered Medications Inactive Administered Medications - up to 3 most recent administrations Medication Order MAR Action Action Date Dose Rate Site lactated ringers infusion 20 mL/hr, Intravenous, Continuous, Starting on Mon02/05/20 at 1335 Currently Infusing 02/05/2020 1:56 PM EST New Bag 02/05/2020 1:52 PM EST 20 mL/hr 20 mL/hr lidocaine PF 1% (XYLOCAINE) injection As Needed, Starting on Mon02/05/20 at 1404 Given 02/05/2020 2:04 PM EST 100 mg ondansetron (ZOFRAN) injection Intravenous, As Needed, Starting on Mon02/05/20 at 1359 Given 02/05/2020 1:59 PM EST 4 mg propofol (DIPRIVAN) infusion 10 mg/mL 100 mL Intravenous, Continuous PRN, Starting on Mon02/05/20 at 1404 New Bag 02/05/2020 2:04 PM EST 180 mcg/kg/min 148.9 mL/hr Propofol (DIPRIVAN) injection Intravenous, As Needed, Starting on Mon02/05/20 at 1404 Given 02/05/2020 2:04 PM EST 150 mg documented in this encounter Care Teams Social Media Job Titles Relationship Specialty Start Date End Date Joyce Shaw APRN [address] [place] [address] PCP - General Nurse Practitioner 02/03/20 09/03/20 documented as of this encounter
--- OUTSIDE RECORDS SUMMARY | 2024-01-11 19:01 | XMS_ITS | Encounter Summary ---
Author Organization [facility] Address [address] [place] [address] Care Team Providers Care Agency Manager Name Role Phone Hermila Orlando APRN Primary Care Provider [phone] Encounter Details Date Type Department Care Team (Late st Contact Info) Description 12/07/2020 3:00 PM EDT Pre-Admission Testing [facility] T [address] [place] [address] 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 Tobacco Use Types Packs/Day Years [...] Sign Reading Time Taken Comments Blood Pressure - - Pulse - - Temperature - - Respiratory Rate - - Oxygen Saturation - - Inhaled Oxygen Concentration - - Weight 149 kg (329 lb 2.4 oz) 12/07/2020 3:13 PM EDT Height 165.1 cm (5' 5 ) 12/07/2020 3:13 PM EDT Body Mass Index 54.77 12/07/2020 3:13 PM EDT documented in this encounter OR Notes * Chio De RN - 12/07/2020 3:00 PM EDT EKG CLEARED PER DR VICTORIA documented in this encounter Plan of Treatment Not on file documented as of this encounter Procedures Procedure Name Priority Date/Time Associated Diagnosis Comments POCT GLUCOSE FINGERSTICK Routine 12/09/2020 10:32 AM EDT COVID-19,CEPHEID/CLARICE T,[facility] IN-HOUSE,SUPERVISOR INVENTORY MERCHANDISING SWAB IN TRANSPORT MEDIA 1 HR TAT Routine 12/07/2020 3:19 PM EDT COVID PRE-OP / PRE-PROCEDURE SCREENING ORDER (NO ISOLATION) Routine 12/07/2020 3:19 PM EDT CBC (NO DIFF) Routine 12/07/2020 3:19 PM EDT POTASSIUM Routine 12/07/2020 3:19 PM EDT documented in this encounter Results * (ABNORMAL) POC Glucose (12/09/2020 10:32 AM EDT) Pathologist [facility] Glucose 164(H) 70 - 130 mg/dL 12/09/2020 10:40 AM EDT [facility] Comment:Meter: [id number] Op erator: [id number] Rony Llamas Blood 12/09/2020 10:3 2 AM EDT 12/09/2020 10:40 AM EDT us Hermila Darion HEAD 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
[address] [place] [address], * COVID-19,CEPHEID/LOLA,[facility] IN-HOUSE(OR EMERGENT/ADD-ON),SUPERVISOR INVENTORY MERCHANDISING SWAB IN TRANSPORT MEDIA 3-4 HR TAT - Swab, Nasopharynx (12/07/2020 3:19 PM EDT) COVID19 Not Detected Not Detected - Ref. Range CEPHEID GENEXPERT 12/07/2020 4:31 PM EDT [facility] Swab Nasopharyngeal structure / Unknown Collection / Unknown 12/07/2020 3:19 PM EDT 12/07/2020 3:37 PM EDT Narrative [facility] - 12/07/2020 4:31 PM EDT Fact sheet for providers: https://www.fda.gov/media/679351/download Fact sheet for patients: https://www.fda.gov/media/475427/download Fact sheet for providers: https://www.fda.gov/media/450385/download Fact sheet for patients: https://www.fda.gov/media/414353/download Aristides Mai MD MICROBIOLOGY - GENERAL OR DERABLES Final Result Performing Organization Address City/[facility]/ZIP Co de Phone Number [facility]
[address] [place] [address], * Potassium (12/07/2020 3:19 PM EDT) Potassium 4.4 3.5 - 5.2 mmol/L 12/07/2020 4:11 PM EDT [facility] Comment:Slight hemolysis det ected by analyzer. Results may be affected. Blood Venipuncture / Unknown 12/07/2020 3:19 PM EDT 12/07/2020 3:44 PM EDT Aristides Mai MD LAB BLOOD ORDERABLES Magdalena l Result [facility]
[address] [place] [address], * (ABNORMAL) CBC (No Diff) (12/07/2020 3:19 PM EDT) WBC 7.73 3.40 - 10.80 10*3/mm3 12/07/2020 3:55 PM EDT [facility] RBC 4.46 3.77 - 5.28 10*6/mm3 12/07/2020 3:55 PM EDT [facility] Hemoglobin 13.2 12.0 - 15.9 g/dL 12/07/2020 3:55 PM EDT [facility] Hematocrit 37.7 34.0 - 46.6 % 12/07/2020 3:55 PM EDT [facility] MCV 84.5 79.0 - 97.0 fL 12/07/2020 3:55 PM EDT [facility] MCH 29.6 26.6 - 33.0 pg 12/07/2020 3:55 PM EDT [facility] MCHC 35.0 31.5 - 35.7 g/dL 12/07/2020 3:55 PM EDT [facility] RDW 11.8(L) 12.3 - 15.4 % 12/07/2020 3:55 PM EDT [facility] RDW-SD 35.7(L) 37.0 - 54.0 fl 12/07/2020 3:55 PM EDT [facility] MPV 10.3 6.0 - 12.0 fL 12/07/2020 3:55 PM EDT [facility] Platelets 266 140 - 450 10*3/mm3 12/07/2020 3:55 PM EDT [facility] Blood Venipuncture / Unknown 12/07/2020 3:19 PM EDT 12/07/2020 3:44 PM EDT Aristides Mai MD LAB BLOOD ORDERABLES Magdalena l Result [facility]
[address] [place] [address], documented in this encounter Visit Diagnoses Not on filedocumented in this encounter Care Teams Agency Manager Relationship Specialty Start Date End Date Hermila Orlando APRN [address] [place] [address] PCP - General Nurse Practitioner 12/07/20 documented as of this encounter
--- OUTSIDE RECORDS SUMMARY | 2024-01-11 19:01 | XMS_ITS | Encounter Summary ---
Author Organization [facility] Address [address] [place] [address] Care Team Providers Care Report Manager Name Role Phone Hermila Orlando APRN Primary Care Provider [phone] Reason for Visit * Auth/Cert Specialty Diagnoses / Procedures Referred By Mikayla t Referred To Contact Diagnoses Dysphagia, unspecified type Dysphagia, unspecified type [R13.10] Procedures SC ESOPHAGOGASTRODUODENOSCOPY TRANSORAL DIAGNOSTIC ESOPHAGOGASTRODUODENOSCOPY Referral ID Status Reason Start Date Expiration Date Visits Re quested Visits Authorized [id number] 1 1 Encounter Details Date Type Department Care Team (Late st Contact Info) Description 12/09/2020 9:50 AM EDT - 12/09/2020 2:30 PM EDT Hospital Encounter [facility] ENDO SUITES [address] [place] [id number] Aristides Mai MD [address] [facility] [address] [place] [address] Dysphagia, unspecified type (Primary Dx); Esophageal stenosis; Nausea and vomiting, intractability of vomiting not specified, unspecified vomiting type Discharge Disposition: Home or Self Care Social [...] Sign Reading Time Taken Comments Blood Pressure 169/104 12/09/2020 2:15 PM EDT Pulse 95 12/09/2020 2:15 PM EDT Temperature 36.8 ??C (98.3 ??F) 12/09/2020 1:42 PM ED T Respiratory Rate 20 12/09/2020 1:42 PM EDT Oxygen Saturation 95% 12/09/2020 2:15 PM EDT Inhaled Oxygen Concentration - - Weight - - Height - - Body Mass Index - - documented in this encounter Discharge Instructions * Attachments The following attachments cannot be sent through Care Everywhere. * Monitored Anesthesia Care Care After (Barbadian) * Upper Endoscopy Adult Care After (Barbadian) documented in this encounter Medications at Time of Discharge amLODIPine (NORVASC) 5 MG tablet Take 5 mg by mouth Daily. 03/22/2021 budesonide (Pulmicort) 0.25 MG/2ML nebulizer solution Mix 2 vials in 5 pkts Splenda and swallow twice daily 60 each 1 01/08/2020 04/29/2021 Cariprazine HCl (Vraylar) 4.5 MG capsule Take 4.5 mg by mouth Daily. 03/19/2020 03/22/2021 metFORMIN (GLUCOPHAGE) 500 MG tabletIndications :Type 2 diabetes mellitus without complication, without long-term current use of insulin TAKE 1 TABLET BY MOUTH TWICE DAILY WITH MEALS 60 tablet 03/28/2020 03/22/2021 PROPRANOLOL HCL PO Take 1 capsule by mouth 2 (Two) Times a Day As Needed (ANXIETY). 03/22/2021 sucralfate (CARAFATE) 1 g tablet Take 1 g by mouth 4 (Four) Times a Day. 12/16/2022 valACYclovir (VALTREX) 1000 MG tabletIndications :HSV (herpes simplex virus) infection Take 1 tablet by mouth once daily 90 tablet 03/23/2020 12/16/2022 documented as of this encounter H&P Notes * Aristides Mai MD - 12/09/2020 1:19 PM EDT Gastroenterology Consult Note Reason for Consultation: Dysphagia Patient Care Team: Hermila Orlando APRN as PCP - General (Nurse Practitioner) Chief complaint: Swallowing troubles History of present illness: The patient is a 30-year-old female with a history of reflux and known eosinophilic esophagitis. She has been dilated in the past. It seems to help for a few weeks and then she has troubles again. She is taking budesonide twice daily. She is taking omeprazole. She is again having troubles. It almost sounds like she has spasm. She then begins to get nausea and vomiting. The episodes can last a few hours. She does not smoke marijuana. She is here for reevaluation. She has heme in the emesis at times. This is not a large amount. Allergies Allergen Reactions ??? Augmentin [Amoxicillin-Pot Clavulanate] Anaphylaxis Hives, swollen lips. ??? Bee Venom Anaphylaxis Prior to Admission medications Medication Sig Start Date End Date Taking? Authorizing Provider amLODIPine (NORVASC) 5 MG tablet Take 5 mg by mouth Daily. Yes Preston Hinds MD budesonide (Pulmicort) 0.25 MG/2ML nebulizer solution Mix 2 vials in 5 pkts Splenda and swallow twice daily Patient taking differently: 0.25 mg Daily. Mix 2 vials in 5 pkts Splenda and swallow twice daily 01/08/20 Yes Jacky Damon APRN Cariprazine HCl (Vraylar) 4.5 MG capsule Take 4.5 mg by mouth Daily. 03/19/20 Yes Preston Hinds MD metFORMIN (GLUCOPHAGE) 500 MG tablet TAKE 1 TABLET BY MOUTH TWICE DAILY WITH MEALS Patient taking differently: Take 500 mg by mouth 2 (Two) Times a Day With Meals. 03/28/20 Yes Tamy Hughes APRN PROPRANOLOL HCL PO Take 1 capsule by mouth 2 (Two) Times a Day As Needed (ANXIETY). Yes Preston Hinds MD sucralfate (CARAFATE) 1 g tablet Take 1 g by mouth 4 (Four) Times a Day. Yes Preston Hinds MD valACYclovir (VALTREX) 1000 MG tablet Take 1 tablet by mouth once daily Patient taking differently: Take 1,000 mg by mouth Daily. 03/23/20 Yes Radha Chau, DO Current Facility-Administered Medications Medication Dose Route Frequency Provider Last Rate Last Admin ??? famotidine (PEPCID) injection 20 mg 20 mg Intravenous Q12H Jair Johnson MD 20 mg at 12/09/20 1037 ??? lactated ringers solution 9 mL/hr Intravenous Continuous SterlingJair yang MD 9 mL/hr at 12/09/20 1037 9 mL/hr at 12/09/20 1037 Past Medical History: Diagnosis Date ??? Anxiety ??? Depression ??? Diabetes mellitus (HCC) diagnosed , checks fsbg daily ??? Endometriosis ??? Eosinophilic esophagitis ??? Fibroid tumor ??? GERD (gastroesophageal reflux disease) ??? Hiatal hernia ??? History of appendectomy 07/12/2019 [facility] ??? Hypertension borderline, no meds prescribed ??? Migraine ??? Ovarian cyst ??? Pneumonia ??? PONV (postoperative nausea and vomiting) ??? Wears glasses Past Surgical History: Procedure Laterality Date ??? SECTION ??? CHOLECYSTECTOMY ??? COLONOSCOPY N/A 06/13/2019 Procedure: COLONOSCOPY; Surgeon: Virgil Wallace MD; Location: [facility] ENDOSCOPY; Service: Gastroenterology; Laterality: N/A; ??? COLONOSCOPY N/A 02/05/2020 Procedure: COLONOSCOPY; Surgeon: Aristides Mai MD; Location: [facility] ENDOSCOPY; Service: Gastroenterology; Laterality: N/A; ??? DILATATION AND CURETTAGE ??? ENDOSCOPY N/A 06/13/2019 Procedure: ESOPHAGOGASTRODUODENOSCOPY; Surgeon: Virgil Wallace MD; Location: [facility] ENDOSCOPY; Service: Gastroenterology; Laterality: N/A; ??? ENDOSCOPY several most recent ??? ENDOSCOPY 02/05/2020 Procedure: ESOPHAGOGASTRODUODENOSCOPY; Surgeon: Aristides Mai MD; Location: [facility] END[facility]COPY; Service: Gastroenterology;; ??? ENDOSCOPY N/A 09/04/2020 Procedure: ESOPHAGOGASTRODUODENOSCOPY; Surgeon: Aristides Mai MD; Location: [facility] ENDOSCOPY; Service: Gastroenterology; Laterality: N/A; ??? HYSTERECTOMY Partial ??? TONSILLECTOMY ??? TUBAL ABDOMINAL LIGATION Family History Problem Relation Age of Onset ??? Colon cancer Father ??? Colon polyps Father ??? Esophageal cancer Father ??? Colon cancer Paternal Grandmother ??? Colon polyps Paternal Grandmother ??? Esophageal cancer Paternal Grandmother ??? Colon cancer Paternal Grandfather ??? Colon polyps Paternal Grandfather GI Family History Colon Cancer 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 Tobacco Use Smoking Status Never Smoker Smokeless Tobacco Never Used 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 Substance and Sexual Activity Alcohol Use No 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 Substance and Sexual Activity Drug Use No ------ Review of Systems Vital Signs Temp: [97.9 ??F (36.6 ??C)] 97.9 ??F (36.6 ??C) Heart Rate: [112] 112 Resp: [22] 22 BP: (166)/(98) 166/98 Physical Exam: General Appearance: Alert, in no acute distress Head: Normocephalic, without obvious abnormality, atraumatic Eyes: Lids and lashes normal, conjunctivae and sclerae normal, no icterus, no pallor, corneas clear, PERRLA Ears: Ears appear intact with no abnormalities noted Throat: No oral lesions, no thrush, oral mucosa moist Neck: No adenopathy, supple, trachea midline, no thyromegaly, no JVD Lungs: Clear to auscultation,respirations regular, even and unlabored Heart: Regular rhythm and normal rate, normal S1 and S2, no murmur, no gallop, no rub, no click Chest Wall: Symmetrical respiratory expansion Abdomen: Normal bowel sounds, no masses, no organomegaly, soft nontender, nondistended, no guarding, no rebound tenderness Extremities: Moves all extremities well, no edema, no cyanosis, no redness Skin: No bleeding, bruising or rash Neurologic: Cranial nerves 2 - 12 grossly intact, no focal deficits LABS: Lab Results (last 48 hours) No results found for the last 48 hours. RADIOLOGY: Imaging Results (Last 24 Hours) No results found for the last 24 hours. Assessment/Plan Dysphagia Impressions and plan #1 eosinophilic esophagitis and dysphagia: We are going to plan an upper endoscopy. Will rebiopsy. We will dilate as needed. She is already seen a dietitian. She is already on budesonide as well as omeprazole. I will likely check an upper GI series with a barium tablet to be sure there isn't any strictures that are not perceiving. Her dysphagia is to both solids and liquids. I discussed the patient's findings and my recommendations with patient Aristides Mai MD 12/09/20 13:19 EDT documented in this encounter OR Notes * Op Note - Aristides Mai MD - 12/09/2020 1:00 PM EDT EGD with biopsy Instrument: Olympus video gastroscope Preop diagnosis: Dysphagia Postop diagnosis: Ulcerative esophagitis Indications: The patient is a 30-year-old with a history of eosinophilic esophagitis and reflux. She has dysphagia. She is here for an upper endoscopy. Procedure: After the patient was informed of the risks, benefits, and alternatives to the procedure, informed consent was obtained. The endoscope was inserted into the oropharynx, down the esophagus,into the stomach and duodenum. The esophageal mucosa was markedly abnormal with ulcerations. There was some furrows consistent with a EOE. Biopsies were taken. The distal esophagus had some circumferential ulceration near the GE junction. The stomach is remarkable for gastritis. There was no ulcer seen. Retroflexion was performed. Photos were taken. The duodenal bulb and descending duodenum were unremarkable. The patient tolerated the procedure well and there were no immediate complications. Impressions and plan #1 ulcerative esophagitis: Not sure why she has ulcerative esophagitis. She tells me she is on omeprazole but I do not see it on her medication list. I will confirm that she is taking the prescription dose of a proton pump inhibitor twice daily. I will check a gastrin level. Wewill follow- up biopsies. Certainly here dysphagia could be related to her ulcerations. CC Hermila Orlando documented in this encounter Plan of Treatment Not on file documented as of this encounter Procedures Procedure Name Priority Date/Time Associated Diagnosis Comments GASTRIN Routine 12/09/2020 1:50 PM EDT Esophageal stenosis Nausea and vomiting, intractability of vomiting not specified, unspecified vomiting type TISSUE PATHOLOGY EXAM Routine 12/09/2020 1:34 PM EDT Dysphagia, unspecified type SC ESOPHAGOGASTRODUODENOSCOP Y TRANSORAL DIAGNOSTIC 12/09/2020 1:20 PM EDT Dysphagia, unspecified type ENDOSCOPY, INT 12/09/2020 documented in this encounter Results * Gastrin (12/09/2020 1:50 PM EDT) Gastrin 68 0 - 115 pg/mL 12/11/2020 4:11 PM EDT [facility] Comment: Siemens Immulite 2000 Immunochemiluminometric assay (ICMA) Values obtained with different assay methods or kits cannot be used interchangeably. Results cannot be interpreted as absolute evidence of the presence or absence of malignant disease. Blood Venipuncture / Unknown 12/09/2020 1:50 PM EDT 12/09/2020 2:15 PM EDT Narrative [facility] - 12/11/2020 4:11 PM EDT Performed at: ??[address] - [address] ??[id number] Evening Sitter: Yaritza Garcia MD, Phone: ??[phone] us Aristides Mai MD LAB BLOOD ORDERABLES Magdalena l Result [facility] [address] [place] [address], * Tissue Pathology Exam (12/09/2020 1:34 PM EDT) Pathologist [facility] Case Report Surgical Pathology Report ? Case: [id number] ? Authorizing Provider: ??Aristides Mai MD ?? Collected: ? 12/09/2020 01:34 PM ? Ordering Location: ? [facility] ?? Received: ?12/09/2020 02:32 PM ? ENDO SUITES ? Pathologist: ? Cade Prajapati DO ? Specimen: ?Esophagus, esophageal bx for pathology ? 12/11/2020 3:55 PM [facility] Clinical Information Dysphagia, esophageal stenosis, nausea and vomiting 12/11/2020 3:55 PM [facility] Final Diagnosis ESOPHAGUS, BIOPSY: Squamous mucosa with acute esophagitis, focal erosion, and reactive mucosal changes Increased intraepithelial eosinophils (23 eosinophils per single high-power field) See comment 12/11/2020 3:55 PM [facility] Comment Sections from the esophageal biopsy show squamous mucosa with numerous intraepithelial eosinophils (23 per single high-power field) and scattered neutrophils. The squamous mucosa also shows marked reactive changes suggestive of previous erosion. A GMS stain with appropriate controls was negative for fungal elements and an HSV 1/2 immunohistochemical stain with appropriate controls was also negative. The differential diagnosis also includes eosinophilic esophagitis or reflux esophagitis. Clinical and endoscopic correlation is required. 12/11/2020 3:55 PM [facility] Gross Description The specimen is received in formalin labeled esophageal biopsy and consists of 2 amaya soft tissue fragments aggregating 0.4 x 0.4 x 0.2 cm submitted entirely in a single cassette. HM 12/11/2020 3:55 PM EDT [facility] Microscopic Description The slides are reviewed and demonstrate histopathologic features supporting the above rendered diagnosis. 12/11/2020 3:55 PM EDT [facility] Tissue Specimen from esophagus / Unknown 12/09/2020 1:34 PM EDT 12/09/2020 2:32 PM EDT Aristides Mai MD PATHOLOGY/CYTOLOGY ORDERA BLES Final Result [facility]
[address] [place] [address], * ENDOSCOPY, INT (12/09/2020) Aristides Mai MD INTERFACE NEEDS Final Res ult documented in this encounter Visit Diagnoses Diagnosis Dysphagia- Primary Dysphagia, unspecified type Esophageal stenosis Stricture and stenosis of esophagus Nausea and vomiting, intractability of vomiting not specified, unspecified vomiting type documented in this encounter Admitting Diagnoses Diagnosis Dysphagia documented in this encounter Administered Medications Inactive Administered Medications - up to 3 most recent administrations Medication Order MAR Action Action Date Dose Rate Site famotidine (PEPCID) injection 20 mg 20 mg, Intravenous, Every 12 Hours Scheduled, First dose on Mon12/09/20 at 1020, Dilute to 10 mL total volume and give IV push over 2 minutes. Given 12/09/2020 10:37 AM EDT 20 mg ipratropium-albuterol (DUO-NEB) nebulizer solution 3 mL 3 mL, Nebulization, Once As Needed, Wheezing, Shortness of Air, bronchospasm, Starting on Mon12/09/20 at 1335, For 1 dose lactated ringers solution 9 mL/hr, Intravenous, Continuous, Starting on Mon12/09/20 at 1020 New Bag 12/09/2020 10:37 AM EDT 9 mL/hr 9 mL/hr ondansetron (ZOFRAN) injection 4 mg 4 mg, Intravenous, Once As Needed, Nausea, Vomiting, Starting on Mon12/09/20 at 1335, For 1 dose, If BOTH ondansetron (ZOFRAN) and promethazine (PHENERGAN) are ordered use ondansetron first and THEN promethazine IF ondansetron is ineffective. documented in this encounter Active and Recently Administered Medications Times are shown in EDT. Scheduled Medication Order 12/07/2020 12/08/2020 12/09/2020 famotidine (PEPCID) injection 20 mg 20 mg, Intravenous, Every 12 Hours Scheduled, First dose on Mon12/09/20 at 1020, Dilute to 10 mL total volume and give IV push over 2 minutes. 1037 (Given - Provid er: Norah Gallardo RN) Continuous Medication Order 12/07/2020 12/08/2020 12/09/2020 lactated ringers solution 9 mL/hr, Intravenous, Continuous, Starting on Mon12/09/20 at 1020 1037 (New Bag - Prov ider: Norah Gallardo RN)1320 (Stopped - Provider: Kerri Mcnair CRNA) PRN Medication Order 12/07/2020 12/08/2020 12/09/2020 ipratropium-albuterol (DUO-NEB) nebulizer solution 3 mL 3 mL, Nebulization, Once As Needed, Wheezing, Shortness of Air, bronchospasm, Starting on Mon12/09/20 at 1335, For 1 dose ondansetron (ZOFRAN) injection 4 mg 4 mg, Intravenous, Once As Needed, Nausea, Vomiting, Starting on Mon12/09/20 at 1335, For 1 dose, If BOTH ondansetron (ZOFRAN) and promethazine (PHENERGAN) are ordered use ondansetron first and THEN promethazine IF ondansetron is ineffective. documented in this encounter Care Teams Report Manager Relationship Specialty Start Date End Date Hermila Orlando APRN [address] [place] [address] PCP - General Nurse Practitioner 12/07/20 documented as of this encounter
--- OUTSIDE RECORDS SUMMARY | 2024-01-11 19:01 | XMS_ITS | Encounter Summary ---
Author Organization [facility] Address [address] [place] [address] Care Team Providers Care Plant Engineering Manager Name Role Phone Hermila Orlando APRN Primary Care Provider Reason for Visit * Reason Onset Date Comments Med Refill 04/14/2021 Encounter Details Date Type Department Care Team (Late st Contact Info) Description 04/14/2021 Refill [facility] GASTROENTEROLOGY [address] [facility] [address] [place] [address] Sofia Sullivan MA 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 [...] Telephone Encounter - Sofia Sullivan MA - 04/14/2021 3:17 PM EST Patient had EGD today and has not been on a ppi. Dr Mai would like to send this medication in. Itjayoks like her previous ppi was protonix 40mg BID. documented in this encounter Plan of Treatment Not on file documented as of this encounter Visit Diagnoses Not on filedocumented in this encounter Care Teams Plant Engineering Manager Relationship Specialty Start Date End Date Hermila Orlando APRN [address] [place] [address], [place] [address] PCP - General Nurse Practitioner 12/07/20 documented as of this encounter
--- OUTSIDE RECORDS SUMMARY | 2024-01-11 19:01 | XMS_ITS | Encounter Summary ---
Author Organization [facility] Address [address] [place] [id number] Care Team Providers Care Lamp Shade Maker Name Role Phone Hermila Orlando APRN Primary Care Provider [phone] Reason for Referral * Surgical (Routine) - Closed Specialty Diagnoses / Procedures Referred By Contac t Referred To Contact Gastroenterology Diagnoses Dysphagia, unspecified type Procedures Case Request Aristides Mai MD [address] [place] [address] Phone: tel: fax: Aristides Mai MD [address] [facility] [address] [place] [address] Phone: tel: fax: Referral ID Status Reason Start Date Expiration Date Visits Re quested Visits Authorized [id number] Closed 10/19/2020 10/19/2021 1 1 Encounter Details Date Type Department Care Team (Late st Contact Info) Description 10/16/2020 Prep for Surgery [facility]DERS ONLY [address] [place] [address] Aristides Mai MD [address] [facility] [address] [place] [address] Dysphagia, unspecified type (Primary Dx) 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 Tobacco Use Types Packs/Day Years [...] as of this encounter Visit Diagnoses Diagnosis Dysphagia, unspecified type- Primary documented in this encounter Care Teams Lamp Shade Maker Relationship Specialty Start Date End Date Hermila Orlando APRN [address] [place] [address] PCP - General Nurse Practitioner 09/04/20 12/06/20 documented as of this encounter
--- OUTSIDE RECORDS SUMMARY | 2024-01-11 19:01 | XMS_ITS | Encounter Summary ---
[facility] Address [address] [place] [address] Care Team Providers Care Good Humor Vendor Name Role Phone Joyce Shaw APRN Primary Care Provider [phone] Reason for Referral * Diagnostic Medical (Routine) - Closed Specialty Diagnoses / Procedures Referred By Contac t Referred To Contact Gastroenterology Diagnoses Esophagitis, eosinophilic Esophageal dysphagia Jacky Damon APRN Phone: tel: fax: Aristides Mai MD [address] [place] [address] Phone: tel: fax: Referral ID Status Reason Start Date Expiration Date V isits Requested Visits Authorized [id number] Closed Specialty Services Required 04/02/2020 04/02/2021 1 1 Reason for Visit * Reason Comments Abdominal Pain Difficulty Swallowing * Diagnostic Medical (Routine) - Closed Specialty Diagnoses / Procedures Referred By Contac t Referred To Contact Gastroenterology Diagnoses Eosinophilic esophagitis Joyce Shaw APRN [address] [place] [address] Phone: tel: fax: Aristides Mai MD [address] [facility] [address] Phone: tel: fax: Referral ID Status Reason Start Date Expiration Date Visits Re quested Visits Authorized [id number] Closed 04/01/2020 04/01/2021 1 1 Encounter Details Date Type Department Care Team (Late st Contact Info) Description 04/02/2020 12:30 PM EST Telemedicine [facility] GASTROENTEROLOGY [address] [place] [address] Jacky Damon APRN [address] [place] [address] Esophagitis, eosinophilic (Primary Dx); Esophageal dysphagia; Periumbilical abdominal pain; Gastroparesis 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 Tobacco Use Types Packs/Day Years [...] on file documented as of this encounter Progress Notes * Jacky Damon APRN - 04/02/2020 12:30 PM EST GASTROENTEROLOGY OFFICE NOTE Ivon Erwin [id number] 1990 CARE TEAM Patient Care Team: Joyce Shaw APRN as PCP - General (Nurse Practitioner) Referring Provider: Joyce Shaw APRN You have chosen to receive care through a telehealth visit. Do you consent to use a video/audio connection for your medical care today? Yes Chief Complaint Patient presents with ??? Abdominal Pain ??? Difficulty Swallowing HISTORY OF PRESENT ILLNESS: Patient returns in follow-up with a history of eosinophilic esophagitis with associated difficulty swallowing. She has been taking budesonide rest feels for the past 8 weeks and has had little to no improvement in her swallowing. She reports that she was in the emergency department last week at [facility] with a food bolus. No intervention was required, the food apparently passed on its own. She reports that she is having problems with nausea all the time and frequently vomiting. She is feels bloated and full all the time. She has a known history of gastroparesis. She has new complaints today of abdominal pain just above her umbilicus and off to the left. She says she has had this pain constantly for the past 3 months but has not reported it previously. The pain is described as a constant sore/ache feeling that gets worse at times and is more severe. The intensity of pain does not seem to be associated with meals or bowel habits. PAST MEDICAL HISTORY Past Medical History: Diagnosis Date ??? Anxiety ??? Depression ??? Diabetes mellitus (CMS/HCC) diagnosed , checks fsbg daily ??? Endometriosis ??? Eosinophilic esophagitis ??? Fibroid tumor ??? History of appendectomy 07/12/2019 [facility] ??? Hypertension borderline, no meds prescribed ??? Migraine ??? Ovarian cyst ??? Pneumonia ??? PONV (postoperative nausea and vomiting) ??? Wears glasses PAST SURGICAL HISTORY Past Surgical History: Procedure Laterality Date ??? SECTION ??? CHOLECYSTECTOMY ??? COLONOSCOPY N/A 06/13/2019 Procedure: COLONOSCOPY; Surgeon: Virgil Wallace MD; Location: [facility] ENDOSCOPY; Service: Gastroenterology; Laterality: N/A; ??? COLONOSCOPY N/A 02/05/2020 Procedure: COLONOSCOPY; Surgeon: Aristides Mai MD; Location: [facility] ENDOSCOPY; Service: Gastroenterology; Laterality: N/A; ??? DILATATION AND CURETTAGE ??? ENDOSCOPY N/A 06/13/2019 Procedure: ESOPHAGOGASTRODUODENOSCOPY; Surgeon: Virgil Wallace MD; Location: [facility] ENDOSCOPY; Service: Gastroenterology; Laterality: N/A; ??? ENDOSCOPY several most recent ??? ENDOSCOPY 02/05/2020 Procedure: ESOPHAGOGASTRODUODENOSCOPY; Surgeon: Aristides Mai MD; Location: [facility] ENDOSCOPY; Service: Gastroenterology;; ??? HYSTERECTOMY Partial ??? TONSILLECTOMY ??? TUBAL ABDOMINAL LIGATION MEDICATIONS: Current Outpatient Medications: ??? albuterol sulfate HFA 108 (90 Base) MCG/ACT inhaler, Inhale 2 puffs Every 4 (Four) Hours As Needed for Shortness of Air. (Patient taking differently: Inhale 2 puffs Every 4 (Four) Hours As Neededfor Wheezing or Shortness of Air.), Disp: 8 g, Rfl: 0 ??? amitriptyline (ELAVIL) 25 MG tablet, Take one tab at night for one week then increase to 2 tabsat night thereafter if tolerated, Disp: 60 tablet, Rfl: 2 ??? budesonide (Pulmicort) 0.25 MG/2ML nebulizer solution, Mix 2 vials in 5 pkts Splenda and swallow twice daily (Patient taking differently: 0.25 mg 2 (two) times a day. Mix 2 vials in 5 pkts Splenda and swallow twice daily), Disp: 60 each, Rfl: 1 ??? escitalopram (LEXAPRO) 20 MG tablet, Take 20 mg by mouth Daily., Disp: , Rfl: ??? metFORMIN (GLUCOPHAGE) 500 MG tablet, TAKE 1 TABLET BY MOUTH TWICE DAILY WITH MEALS, Disp: 60 tablet, Rfl: 0 ??? metoclopramide (REGLAN) 10 MG tablet, Take 1 tablet by mouth 4 (Four) Times a Day., Disp: 336 tablet, Rfl: 0 ??? mirtazapine (REMERON) 30 MG tablet, Take 30 mg by mouth Every Night., Disp: , Rfl: ??? ondansetron (ZOFRAN) 4 MG tablet, Take 4 mg by mouth Every 8 (Eight) Hours As Needed for Nauseaor Vomiting., Disp: , Rfl: ??? polyethylene glycol (GoLYTELY) 236 g solution, Use as directed by provider for colonoscopy prep., Disp: 4000 mL, Rfl: 0 ??? valACYclovir (VALTREX) 1000 MG tablet, Take 1 tablet by mouth once daily, Disp: 90 tablet, Rfl:0 ALLERGIES Allergies Allergen Reactions ??? Augmentin [Amoxicillin-Pot Clavulanate] Anaphylaxis Hives, swollen lips. ??? Bee Venom Anaphylaxis FAMILY HISTORY: Family History Problem Relation Age of Onset ??? Colon cancer Father ??? Colon polyps Father ??? Esophageal cancer Father ??? Colon cancer Paternal Grandmother ??? Colon polyps Paternal Grandmother ??? Esophageal cancer Paternal Grandmother ??? Colon cancer Paternal Grandfather ??? Colon polyps Paternal Grandfather SOCIAL HISTORY 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 Socioeconomic History ??? Marital status: Single Spouse name: Not on file ??? Number of children: Not on file ??? Years of education: Not on file ??? Highest education level: Not on file Tobacco Use ??? Smoking status: Never Smoker ??? Smokeless tobacco: Never Used Substance and Sexual Activity ??? Alcohol use: No ??? Drug use: No ??? Sexual activity: Defer REVIEW OF SYSTEMS Review of Systems Constitutional: Negative for activity change, appetite change, chills, diaphoresis, fatigue, fever,unexpected weight gain and unexpected weight loss. HENT: Negative for trouble swallowing and voice change. Gastrointestinal: Positive for abdominal distention, abdominal pain, diarrhea, nausea, vomiting andindigestion. Negative for anal bleeding, blood in stool, constipation, rectal pain and GERD. PHYSICAL EXAM There were no vitals taken for this visit. Physical Exam Constitutional: General: She is not in acute distress. Appearance: She is well-developed. She is obese. HENT: Head: Normocephalic and atraumatic. Nose: Nose normal. Eyes: Conjunctiva/sclera: Conjunctivae normal. Pupils: Pupils are equal, round, and reactive to light. Pulmonary: Effort: Pulmonary effort is normal. Neurological: Mental Status: She is alert and oriented to person, place, and time. Psychiatric: Behavior: Behavior normal. Judgment: Judgment normal. Results Review: Availabe records reviewed and discussed with patient. ASSESSMENT / PLAN 1. Eosinophilic esophagitis 2. Esophageal dysphagia -EGD 3. Periumbilical abdominal pain Likely myofascial pain given its constant nature -Amitriptyline 25 to 50 mg at bedtime 4. Gastroparesis -Dietary modifications for gastroparesis Return in about 8 weeks (around 05/28/2020). I discussed the patients findings and my recommendations with patient Jacky Hagen. TERESA Damon documented in this encounter Plan of Treatment Scheduled Referrals Name Type Priority Associated Diagnoses Order Schedule Ambulatory referral for Screening EGD Outpatient Referral Routine Esophagitis, eosinophilic Esophageal dysphagia Ordered: 04/02/2020 documented as of this encounter Visit Diagnoses Diagnosis Esophagitis, eosinophilic- Primary Eosinophilic esophagitis Esophageal dysphagia Dysphagia, pharyngoesophageal phase Periumbilical abdominal pain Abdominal pain, periumbilic Gastroparesis documented in this encounter Care Teams Good Humor Vendor Relationship Specialty Start Date End Date Joyce Shaw APRN [address] [place] [address] PCP - General Nurse Practitioner 02/03/20 09/03/20 documented as of this encounter
--- OUTSIDE RECORDS SUMMARY | 2024-01-11 19:01 | XMS_ITS | Encounter Summary ---
[facility] [address] [place] [address] Care Team Providers Care Bed Spring Maker Name Role Phone Hermila Orlando TERESA Primary Care Provider [phone] Encounter Details Date Type Department Care Team (Late st Contact Info) Description 03/31/2020 Telephone [facility] GASTROENTEROLOGY [address] [facility] [address] [place] [phone] Aristides Mai MD [address] [address] [place] [address] 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 Tobacco Use Types Packs/Day Years [...] encounter Miscellaneous Notes * Telephone Encounter - Marya Subramanian MA - 04/01/2020 7:49 AM EST Left voicemail in regards to trying to fill the 12:30-1:00 slot for for patient due to cancellation. * Telephone Encounter - Alysa Corbin RegSched Rep - 03/31/2020 9:33 AM EST Pt Called stating she is choking on both solids and liquids. Went to [facility] ED on 03/30, was advised to follow up with GI MICHAEL. Pt says she had a CT with contrast while there. Pt scheduled with Jacky on 04/22 (first available) please contact patient to advise, pt wishes to be seen sooner andis concerned about choking and lack of hydration. Pt thinks she may need an EGD with dilation, please advise. documented in this encounter Plan of Treatment Not on file documented as of this encounter Visit Diagnoses Not on filedocumented in this encounter Additional Health Concerns Infection Onset Date Last Indicated Resolved Time COVID Screen (preop/placement) 04/05/2020 04/05/2020 04/06/2020 5:25 PM EST COVID Screen (preop/placement) 09/02/2020 09/02/2020 09/02/2020 7:52 PM EDT COVID Screen (preop/placement) 12/07/2020 12/07/2020 12/07/2020 4:31 PM EDT COVID (rule out) 03/22/2021 03/22/2021 03/29/2021 9:08 PM EST COVID Screen (preop/placement) 04/05/2021 04/11/2021 04/11/2021 9:03 PM EST COVID Screen (preop/placement) 04/29/2021 08/16/2021 08/16/2021 10:45 PM EDT documented as of this encounter Care Teams Bed Spring Maker Relationship Specialty Start Date End Date Hermila Orlando APRN [address] [place] [address] PCP - General Nurse Practitioner 12/07/20 documented as of this encounter
--- OUTSIDE RECORDS SUMMARY | 2024-01-11 19:01 | XMS_ITS | Encounter Summary ---
[facility] Address [address] [place] [address] Care Team Providers Care Location Director Name Role Phone ShawJoyce barry TERESA Primary Care Provider [phone] Reason for Visit * Auth/Cert Specialty Diagnoses / Procedures Referred By Mikayla t Referred To Contact Diagnoses Screen for colon cancer Screen for colon cancer [Z12.11] Procedures SC ESOPHAGOGASTRODUODENOSCOPY TRANSORAL DIAGNOSTIC SC COLONOSCOPY FLX DX W/COLLJ SPEC WHEN PFRMD ESOPHAGOGASTRODUODENOSCOPY FOR EOE, COLONOSCOPY FOR FAMILY HX POLYPS Referral ID Status Reason Start Date Expiration Date Visits Re quested Visits Authorized [id number] 1 1 Encounter Details Date Type Department Care Team (Late st Contact Info) Description 02/05/2020 2:32 PM EST - 02/05/2020 3:38 PM EST Surgery [facility] [address] [place] [id number] Aristides Mai MD [address] [facility] [address] [place] [address] ESOPHAGOGASTRODUODENOSCOPY [95748 (CPT??)] 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 Tobacco Use Types Packs/Day Years [...] Sign Reading Time Taken Comments Blood Pressure 128/82 02/05/2020 3:20 PM EST Pulse 79 02/05/2020 3:20 PM EST Temperature 36.7 ??C (98 ??F) 02/05/2020 2:38 PM EST Respiratory Rate 16 02/05/2020 2:45 PM EST Oxygen Saturation 98% 02/05/2020 3:20 PM EST Inhaled Oxygen Concentration - - Weight 138 kg (304 lb) 02/05/2020 1:12 PM EST Height 166.4 cm (5' 5.51 ) 02/05/2020 1:12 PM ES T Body Mass Index 49.8 02/05/2020 1:12 PM EST documented in this encounter Discharge Instructions * Attachments The following attachments cannot be sent through Care Everywhere. * General Anesthesia Adult Care After (Japanese) * Duodenal Biopsy (Japanese) * Upper Endoscopy Adult Care After (Japanese) * Colonoscopy Adult Care After [id number] (Japanese) * Form - Excuse from Work School or Physical Activity (Japanese) documented in this encounter Medications at Time of Discharge albuterol sulfate HFA 108 (90 Base) MCG/ACT inhalerIndication s:Pneumonia due to infectious organism, unspecified laterality, unspecified part of lung Inhale 2 puffs Every 4 (Four) Hours As Needed for Shortness of Air. 8 g 07/19/2019 1 budesonide (Pulmicort) 0.25 MG/2ML nebulizer solution Mix 2 vials in 5 pkts Splenda and swallow twice daily 60 each 1 01/08/2020 2 escitalopram (LEXAPRO) 20 MG tablet Take 20 mg by mouth Daily. 05/29/2019 1 metFORMIN (Glucophage) 500 MG tabletIndications :Type 2 diabetes mellitus without complication, without long-term current use of insulin Take 1 tablet by mouth 2 (Two) Times a Day With Meals. 60 tablet 1 08/16/2019 1 metoclopramide (REGLAN) 10 MG tablet Take 1 tablet by mouth 4 (Four) Times a Day. 336 tablet 01/08/2020 1 mirtazapine (REMERON) 30 MG tablet Take 30 mg by mouth Every Night. 12/30/2019 1 ondansetron (ZOFRAN) 4 MG tablet Take 4 mg by mouth Every 8 (Eight) Hours As Needed for Nausea or Vomiting. 12/24/2019 1 polyethylene glycol (GoLYTELY) 236 g solution Use as directed by provider for colonoscopy prep. 4000 mL 02/03/2020 1 valACYclovir (VALTREX) 1000 MG tabletIndications :HSV (herpes simplex virus) infection Take 1 tablet by mouth Daily. 90 tablet 1 03/08/2019 1 documented as of this encounter H&P Notes * Aristides Mai MD - 02/05/2020 1:49 PM EST Gastroenterology Consult Note Reason for Consultation: Dysphagia, eosinophilic esophagitis, gastroparesis, rectal bleeding Patient Care Team: Joyce Shaw APRN as PCP - General (Nurse Practitioner) Chief complaint: Swallowing troubles, rectal bleeding History of present illness: Patient is a 29-year-old female with known eosinophilic esophagitis callum distal esophageal ring. She has been dilated in the past. She also has had evidence of gastroparesis. Biopsies in the past did confirm eosinophilic esophagitis. She is on budesonide as well as Protonix. She has increasing difficulties with swallowing. The dilation she had previously helped with her swallowing for a few weeks. She is nauseated continuously. She also has had some diarrhea and some blood in mucus in the stools. She has some pain intermittently in the lower abdomen. There is a family history of colon cancer in her father and more recently her mother was diagnosed with colon canc er. She had a colonoscopy not too long ago with no etiology was found. She is referred to evaluate for any colitis that may have developed. Allergies Allergen Reactions ??? Augmentin [Amoxicillin-Pot Clavulanate] Anaphylaxis Hives, swollen lips. ??? Bee Venom Anaphylaxis Prior to Admission medications Medication Sig Start Date End Date Taking? Authorizing Provider budesonide (Pulmicort) 0.25 MG/2ML nebulizer solution Mix 2 vials in 5 pkts Splenda and swallow twice daily Patient taking differently: 0.25 mg 2 (two) times a day. Mix 2 vials in 5 pkts Splenda and swallow twice daily 01/08/20 Yes Jacky Damon APRN escitalopram (LEXAPRO) 20 MG tablet Take 20 mg by mouth Daily. 05/29/19 Yes Preston Hinds MD metFORMIN (Glucophage) 500 MG tablet Take 1 tablet by mouth 2 (Two) Times a Day With Meals. 08/16/19Yes Tamy Hughes APRN mirtazapine (REMERON) 30 MG tablet Take 30 mg by mouth Every Night. 12/30/19 Yes Preston Hinds MD ondansetron (ZOFRAN) 4 MG tablet Take 4 mg by mouth Every 8 (Eight) Hours As Needed for Nausea or Vomiting. 12/24/19 Yes Preston Hinds MD polyethylene glycol (GoLYTELY) 236 g solution Use as directed by provider for colonoscopy prep. 02/03/20 Yes Aristides Mai MD valACYclovir (VALTREX) 1000 MG tablet Take 1 tablet by mouth Daily. 03/08/19 Yes Radha Chau,DO albuterol sulfate HFA 108 (90 Base) MCG/ACT inhaler Inhale 2 puffs Every 4 (Four) Hours As Needed for Shortness of Air. Patient taking differently: Inhale 2 puffs Every 4 (Four) Hours As Needed for Wheezing or Shortnessof Air. 07/19/19 Radha Chau, DO metoclopramide (REGLAN) 10 MG tablet Take 1 tablet by mouth 4 (Four) Times a Day. 01/08/20 Jacky Damon APRN Current Facility-Administered Medications Medication Dose Route Frequency Provider Last Rate Last Admin ??? famotidine (PEPCID) injection 20 mg 20 mg Intravenous Q12H Bernabe Segal MD ??? lactated ringers infusion 20 mL/hr Intravenous Continuous Bernabe Segal MD Past Medical History: Diagnosis Date ??? Anxiety ??? Depression ??? Diabetes mellitus (CMS/HCC) diagnosed , checks fsbg daily ??? Endometriosis ??? Eosinophilic esophagitis ??? Fibroid tumor ??? History of appendectomy 07/12/2019 [facility] ??? Hypertension borderline, no meds prescribed ??? Migraine ??? Ovarian cyst ??? Pneumonia ??? PONV (postoperative nausea and vomiting) ??? Wears glasses Past Surgical History: Procedure Laterality Date ??? SECTION ??? CHOLECYSTECTOMY ??? COLONOSCOPY N/A 06/13/2019 Procedure: COLONOSCOPY; Surgeon: Virgil Wallace MD; Location: [facility]; Service: Gastroenterology; Laterality: N/A; ??? DILATATION AND CURETTAGE ??? ENDOSCOPY N/A 06/13/2019 Procedure: ESOPHAGOGASTRODUODENOSCOPY; Surgeon: Virgil Wallace MD; Location: [facility]; Service: Gastroenterology; Laterality: N/A; ??? ENDOSCOPY several most recent ??? HYSTERECTOMY Partial ??? TONSILLECTOMY ??? TUBAL [...] ------ Review of Systems Vital Signs Temp: [98.2 ??F (36.8 ??C)] 98.2 ??F (36.8 ??C) Heart Rate: [98] 98 Resp: [16] 16 BP: (150)/(89) 150/89 Physical Exam: General Appearance: Alert, in no acute distress Head: Normocephalic, without obvious abnormality, atraumatic Eyes: Lids and lashes normal, conjunctivae and sclerae normal, no icterus, no pallor, corneas clear, PERRLA Ears: Ears appear intact with no abnormalities noted Neck: No adenopathy, supple, trachea midline, no thyromegaly, no JVD Lungs: respirations regular, even and unlabored Heart: Regular rhythm Chest Wall: Symmetrical respiratory expansion Abdomen: No masses, no organomegaly, soft nontender, nondistended, no guarding, no rebound tenderness Extremities: Moves all extremities well, no edema, no cyanosis, no redness Skin: No bleeding, bruising or rash Neurologic: Cranial nerves 2 - 12 grossly intact, no focal deficits LABS: Lab Results (last 48 hours) Procedure Component Value Units Date/Time POC Glucose Once [[id number]] (Normal) Collected: 02/05/20 1336 Specimen: Blood Updated: 02/05/20 1337 Glucose 125 mg/dL RADIOLOGY: Imaging Results (Last 24 Hours) No results found for the last 24 hours. Assessment/Plan Screen for colon cancer Impressions and plan #1 eosinophilic esophagitis and dysphagia: Hopefully she will continue her budesonide Protonix. We will dilate as needed. If she has not seen a dietitian I will get her into see 1 see if they can help us. #2 gastroparesis: Certainly this worsens her reflux symptoms. She should eat more frequent smaller meals, more liquids, and less roughage. #3 diarrhea and blood in the stool with a family history of colon cancer: We will plan colonoscopy to evaluate. We will look for any signs of ulcerative colitis or Crohn's disease. I discussed the patient's findings and my recommendations with patient Aristides Mai MD 02/05/20 13:49 EST documented in this encounter OR Notes * Op Note - Aristides Mai MD - 02/05/2020 2:05 PM EST EGD with biopsy and dilation Instrument: Olympus videogastroscope Medications: As per anesthesia Preop diagnosis: Dysphagia, EOE, epigastric pain Postop diagnosis: Eosinophilic esophagitis, distal esophageal ring, mild gastritis Indications: The patient is a 29-year-old female with known eosinophilic esophagitis. She is havingmore troubles with dysphagia. She has had dilation in the past which helped for several weeks but her dysphagia has returned. She is on budesonide and Protonix. She also has some epigastric pain and diarrhea. Procedure: After the patient was informed of the risks, benefits and alternatives to the procedure,informed consent was obtained. The endoscope was inserted in the oropharynx down the esophagus intothe stomach and duodenum. Esophageal mucosa was normal although there were some furrows and some subtle rings suggestive of EOE. There was a distal esophageal ring and biopsies were taken of that ring. There was also dilated to 15-16.5 to 18 mm with a balloon. The stomach had some mild gastritis but otherwise was unremarkable. The duodenal bulb and descending duodenum were unremarkable. Biopsies were taken to rule out celiac disease. Retroflexion was performed. The patient tolerated the procedure well and there were no immediate complications. Impressions and plan #1 eosinophilic esophagitis #2 poorly formed distal esophageal ring biopsied and dilated to 54 Italian. #3 biopsies taken to rule out celiac disease given her history of diarrhea and pain #4 mild gastritis Plan: Continue PPI and budesonide. I am going to refer her to a dietitian to help us from the standpoint of her gastroparesis and eosinophilic esophagitis. We will follow-up biopsies. * Op Note - Aristides Mai MD - 02/05/2020 2:05 PM EST Colonoscopy with polypectomy and biopsy Instrument: Adult video colonoscope (We Cluster). Medications: As per anesthesia Preop diagnosis: Family history of colon cancer and diarrhea with lower abdominal pain and rectal bleeding. Postop diagnosis: Colon polyps Indications: The patient is a 29-year-old female who has had some previous colonoscopies which werefairly unrevealing. She now has diarrhea 5-6 times a day, rectal bleeding, and she has a known family history of colon cancer. She is here for evaluation to rule out inflammatory bowel disease or other etiology for her symptoms. Procedure: After the patient was informed of the risks, benefits, and alternatives to the procedure, informed consent was obtained. The endoscope was inserted into the rectum and advanced to the terminal ileum. The terminal ileum looked grossly normal. There was no ulceration or significant inflammation. Biopsies were taken to rule out microscopic inflammation. The cecum and right colon were unremarkable. In the transverse colon at 70 cm was a sessile 7 mm polyp that was snared and removed witha cold snare. Post polypectomy site looked good. Random biopsies were taken from the sigmoid colon and left colon. At 50 cm was another polyp that was about 6 mm in size and cold snared and removed. P ost polypectomy site looked good. Retroflexion was performed. There was no rectal inflammation worksignificant colitis. The patient tolerated the procedure well and there were no immediate complications. She does have hemorrhoidal tags. Impressions and plan #1 transverse colon polyp #2 descending colon polyp #3 random biopsies taken to rule out microscopic colitis Plan: Follow-up biopsies, I suspect the bleeding is hemorrhoidal in origin. documented in this encounter Plan of Treatment Not on file documented as of this encounter Procedures Procedure Name Priority Date/Time Associated Diagnosis Comments POCT GLUCOSE FINGERSTICK Routine 020 2:39 PM EST TISSUE PATHOLOGY EXAM Routine 02/05/2020 2:09 PM EST Screen for colon cancer SC COLONOSCOPY FLX DX W/KADEEM J SPEC WHEN PFRMD 02/05/2020 1:42 PM EST Screen for colon cancer SC ESOPHAGOGASTRODUODENOSCOP Y TRANSORAL DIAGNOSTIC 02/05/2020 1:42 PM EST Screen for colon cancer POCT GLUCOSE FINGERSTICK Routine 020 1:36 PM EST ENDOSCOPY, INT 02/05/2020 SCANNED - COLONOSCOPY 02/05/2020 documented in this encounter Results * POC Glucose Once (02/05/2020 2:39 PM EST) Glucose 114 70 - 130 mg/dL 02/05/2020 2:41 PM EST [facility] Blood 02/05/2020 2:39 PM EST 02/05/2020 2:41 PM EST Aristides Mai MD POINT OF CARE TEST ORDERA BLES Final Result [facility]
[address] [place] [address], * Tissue Pathology Exam (02/05/2020 2:09 PM EST) Case Report Surgical Pathology Report ? Case: [id number] ? Authorizing Provider: ??Aristides Mai MD ?? Collected: ? 02/05/2020 02:09 PM ? Ordering Location: ? [facility] ?? Received: ?02/05/2020 03:04 PM ? ENDO SUITES ? Pathologist: ? Kishor Colvin, ? Specimens: ?? 1) - Small Intestine, Duodenum bx for pathology ? 2) - Esophagus, Esophagus bx for pathology ? 3) - Small Intestine, Small intestine bx for pathology ? 4) - Large Intestine, Transverse Colon, Transverse colon polyp at 70 for pathology ? 5) - Large Intestine, Transverse Colon, Random colon bx for pathology ? 6) - Large Intestine, Left / Descending Colon, Descending colon polyp at 50 for ? pathology ? 02/06/2020 5:29 PM [facility] Clinical Information The working history is screening for colon cancer. 02/06/2020 5:29 PM [facility] Final Diagnosis 1. DUODENAL BIOPSY: Focal nonspecific duodenitis. 2. ESOPHAGUS BIOPSY: Changes compatible with eosinophilic esophagitis. 3. SMALL INTESTINAL BIOPSY: No histopathologic abnormality, small bowel mucosa. 4. TRANSVERSE COLON POLYP AT 70 CM: Sessile serrated adenoma, no dysplasia identified. 5. RANDOM COLON BIOPSIES: No histopathologic abnormality, colonic mucosa. 6. DESCENDING COLON POLYP AT 60 CM: Fragments of tubular adenoma, no high grade dysplasia identified. DGD/dlb 02/06/2020 5:29 PM [facility] Gross Description Specimen 1 received in formalin labeled as duodenal biopsy consists of a few rollins/pink soft tissue fragments aggregating 0.6 x 0.6 x 0.2 cm submitted in toto in cassette 1. Specimen 2 received in formalin labeled as esophagus biopsy consists of a few amaya soft tissue fragments aggregating 0.6 x 0.6 x x 0.2 cm submitted in toto in cassette 2. Specimen 3 received in formalin labeled as small intestine biopsy consists of two amaya soft tissue fragments aggregating 0.4 x 0.4 x 0.2 cm submitted in toto in cassette 3. Specimen 4 received in formalin labeled as transverse colon polyp at 70 cm consists of a 0.6 x 0.4 x 0.4 cm amaya polyp submitted in toto in cassette 4. Specimen 5 received in formalin labeled as random colon biopsy transverse colon consists of two amaya soft tissue fragments aggregating 0.4 x 0.4 x 0.2 cm submitted in toto in cassette 5. Specimen 6 received in formalin labeled as descending colon polyp at 50 consists of a 0.6 x 0.4 x 0.4 cm amaya polyp submitted in toto in cassette 6. HBM/dlb 02/06/2020 5:29 PM EST [facility] Microscopic Description Sections of the duodenal biopsy for the most part show the villi of normal length and breadth with no inflammation and the superficial epithelium covering the villi. However, focally there is a small area where there is infiltration of lymphocytes between the enterocytes. No neutrophilic infiltrates are seen. Charlie's glands appear unremarkable. No adenomatous changes are noted in the epithelium. Sections of the esophageal tissue display acanthotic squamous epithelium show a rich infiltrate of eosinophils in the intraepithelial spaces. Reactive atypia is noted in the squamous epithelium; however dysplastic features are absent. Sections of the small bowel mucosal biopsies show normal villous architecture without blunting, broadening or expansions of the lamina propria by lymphoplasmacytic infiltrates. No inflammation is seen between the enterocytes. Adenomatous changes in the epithelium are absent. No neoplastic infiltrates are identified. Sections of the sessile serrated adenoma show a villiform appearance of the superficial epithelium on the mucosa with the crypts dilated and the epithelium lining the crypts showing a serrated epithelial architecture from the surface to the bottom of the dilated crypt. No adenomatous changes, dysplasia or neoplasia are identified. Sections of the random biopsy fragments of tissue from the colon with no inflammation, erosion or ulceration of the surface epithelium. No hyperplasia of the collagen layer is seen in the superficial propria and no increased inflammation is noted in the propria. Cryptitis, crypt abscesses and granulomas are absent. No adenomatous or serrated epithelial changes are seen. Sections of the descending colonic fragments display tightly packed tubular crypt profiles in which the epithelium shows adenomatous change consisting of nuclear basophilic hyperchromasia and pseudostratificatio n with mild dysplasia; high-grade epithelial dysplasia is absent. 02/06/2020 5:29 PM EST [facility] Tissue Structure of small intestine / Unknown 02/05/2020 2:09 PM EST 02/05/2020 3:04 PM EST Tissue specimen (specimen) Esophageal structure / Unknown 02/05/2020 2:10 PM EST 02/05/2020 3:04 PM EST Tissue specimen (specimen) Structure of small intestine / Unknown 02/05/2020 2:21 PM EST 02/05/2020 3:04 PM EST Tissue specimen (specimen) Transverse colon structure / Unknown 02/05/2020 2:23 PM EST 02/05/2020 3:04 PM EST Comment:History of diarrhea and family history of colon cancer Tissue specimen (specimen) Transverse colon structure / Unknown 02/05/2020 2:28 PM EST 02/05/2020 3:04 PM EST Tissue specimen (specimen) Descending colon structure / Unknown 02/05/2020 2:29 PM EST 02/05/2020 3:04 PM EST us Aristides Mai MD PATHOLOGY/CYTOLOGY ORDERA BLES Final Result [facility]
[address] [place] [address], * POC Glucose Once (02/05/2020 1:36 PM EST) Glucose 125 70 - 130 mg/dL 02/05/2020 1:37 PM EST [facility] Blood 02/05/2020 1:36 PM EST 02/05/2020 1:37 PM EST us Aristides Mai MD POINT OF CARE TEST ORDERA BLES Final Result Performing Organization Address City/[facility] Co de Phone Number [facility]
[address] [place] [address], * SCANNED - COLONOSCOPY (02/05/2020) us Aristides Mai MD CHART REVIEW TABS Magdalena l Result * ENDOSCOPY, INT (02/05/2020) us Aristides Mai MD INTERFACE NEEDS Final Res ult documented in this encounter Visit Diagnoses Diagnosis Screen for colon cancer- Primary Special screening for malignant neoplasms, colon Screen for colon cancer Special screening for malignant neoplasms, colon documented in this encounter Admitting Diagnoses Diagnosis Screen for colon cancer Special screening for malignant neoplasms, colon documented in this encounter Administered Medications Inactive Administered Medications - up to 3 most recent administrations Medication Order MAR Action Action Date Dose Rate Site famotidine (PEPCID) injection 20 mg 20 mg, Intravenous, Every 12 Hours Scheduled, First dose on Mon02/05/20 at 1335, Dilute to 10 mL total volume and give IV push over 2 minutes. Given 02/05/2020 1:51 PM EST 20 mg lactated ringers bolus 500 mL 500 mL, Intravenous, at 2,000 mL/hr, Administer over 0.25 Hours, Once As Needed, for hypovolemia, call anesthesiologist before initiating, Starting on Mon02/05/20 at 1418, For 1 dose, Indications: HypovolemiaIndications:Hypovol emia lactated ringers infusion 20 mL/hr, Intravenous, Continuous, Starting on Mon02/05/20 at 1335 Currently Infusing 02/05/2020 1:56 PM EST New Bag 02/05/2020 1:52 PM EST 20 mL/hr 20 mL/hr ondansetron (ZOFRAN) injection 4 mg 4 mg, Intravenous, Once As Needed, Nausea, Vomiting, Starting on Mon02/05/20 at 1418, For 1 dose, If BOTH ondansetron (ZOFRAN) and promethazine (PHENERGAN) are ordered use ondansetron first and THEN promethazine IF ondansetron is ineffective. promethazine (PHENERGAN) suppository 25 mg 25 mg, Rectal, Once As Needed, Nausea, Vomiting, Starting on Mon02/05/20 at 1418, For 1 dose, If BOTH ondansetron (ZOFRAN) and promethazine (PHENERGAN) are ordered use ondansetron first and THEN promethazine IF ondansetron is ineffective. promethazine (PHENERGAN) tablet 25 mg 25 mg, Oral, Once As Needed, Nausea, Vomiting, Starting on Mon02/05/20 at 1418, For 1 dose, If BOTH ondansetron (ZOFRAN) and promethazine (PHENERGAN) are ordered use ondansetron first and THEN promethazine IF ondansetron is ineffective. {BKC} documented in this encounter Active and Recently Administered Medications Times are shown in EST. Scheduled Medication Order 02/03/2020 02/04/2020 02/05/2020 famotidine (PEPCID) injection 20 mg 20 mg, Intravenous, Every 12 Hours Scheduled, First dose on Mon02/05/20 at 1335, Dilute to 10 mL total volume and give IV push over 2 minutes. 1351 (Given - Provid er: Juan Thurston RN) Continuous Medication Order 02/03/2020 02/04/2020 02/05/2020 lactated ringers infusion 20 mL/hr, Intravenous, Continuous, Starting on Mon02/05/20 at 1335 1352 (New Bag - Prov ider: Juan Thurston RN)1356 (Currently Infusing - Provider: Kaela Lundy CRNA)1438 (Anesthesia Volume Adjustment - Provider: Kaela Lundy CRNA) PRN Medication Order 02/03/2020 02/04/2020 02/05/2020 lactated ringers bolus 500 mL 500 mL, Intravenous, at 2,000 mL/hr, Administer over 0.25 Hours, Once As Needed, for hypovolemia, call anesthesiologist before initiating, Starting on Mon02/05/20 at 1418, For 1 dose, Indications: Hypovolemia ondansetron (ZOFRAN) injection 4 mg 4 mg, Intravenous, Once As Needed, Nausea, Vomiting, Starting on Mon02/05/20 at 1418, For 1 dose, If BOTH ondansetron (ZOFRAN) and promethazine (PHENERGAN) are ordered use ondansetron first and THEN promethazine IF ondansetron is ineffective. promethazine (PHENERGAN) suppository 25 mg(Linked Group 1) 25 mg, Rectal, Once As Needed, Nausea, Vomiting, Starting on Mon02/05/20 at 1418, For 1 dose, If BOTH ondansetron (ZOFRAN) and promethazine (PHENERGAN) are ordered use ondansetron first and THEN promethazine IF ondansetron is ineffective. promethazine (PHENERGAN) tablet 25 mg(Linked Group 1) 25 mg, Oral, Once As Needed, Nausea, Vomiting, Starting on Mon02/05/20 at 1418, For 1 dose, If BOTH ondansetron (ZOFRAN) and promethazine (PHENERGAN) are ordered use ondansetron first and THEN promethazine IF ondansetron is ineffective. {BKC} Linked Groups Order Group 1: promethazine (PHENERGAN) suppository 25 mgJump to med 25 mg, Rectal, Once As Needed, Nausea, Vomiting, Starting on Mon02/05/20 at 1418, For 1 dose, If BOTH ondansetron (ZOFRAN) and promethazine (PHENERGAN) are ordered use ondansetron first and THEN promethazine IF ondansetron is ineffective. Or promethazine (PHENERGAN) tablet 25 mgJump to med 25 mg, Oral, Once As Needed, Nausea, Vomiting, Starting on Mon02/05/20 at 1418, For 1 dose, If BOTH ondansetron (ZOFRAN) and promethazine (PHENERGAN) are ordered use ondansetron first and THEN promethazine IF ondansetron is ineffective. {BKC} documented in this encounter Care Teams Location Director Relationship Specialty Start Date End Date Joyce Shaw APRN [address] [place] [address] PCP - General Nurse Practitioner 02/03/20 09/03/20 documented as of this encounter
--- OUTSIDE RECORDS SUMMARY | 2024-01-11 19:01 | XMS_ITS | Encounter Summary ---
Author Organization [facility] Address [address] [place] [address] Care Team Providers Care Emergency Department Aide Name Role Phone Joyce Shaw APRN Primary Care Provider [phone] Reason for Visit * Diagnostic Medical (Routine) - Closed Specialty Diagnoses / Procedures Referred By Contac t Referred To Contact Gastroenterology Diagnoses Esophagitis, eosinophilic Esophageal dysphagia Jacky Damon APRN Phone: tel: fax: Aristides Mai MD [address] [facility] [place] [address] Phone: tel: fax: Referral ID Status Reason Start Date Expiration Date V isits Requested Visits Authorized [id number] Closed Specialty Services Required 04/02/2020 04/02/2021 1 1 Encounter Details Date Type Department Care Team (Late st Contact Info) Description 04/07/2020 9:30 AM EST Outside Facility Service [facility] GASTROENTEROLOGY [address] [facility] [place] [address] Aristides Mai MD [address] [facility] [address] [place] [address] 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 Tobacco Use Types Packs/Day Years [...] Priority Date/Time Associated Diagnosis Comments ENDOSCOPY, INT 04/07/2020 documented in this encounter Results * ENDOSCOPY, INT (04/07/2020) Aristides Mai MD INTERFACE NEEDS Final Res ult documented in this encounter Visit Diagnoses Not on filedocumented in this encounter Care Teams Emergency Department Aide Relationship Specialty Start Date End Date Joyce Shaw APRN [address] [place] [address] PCP - General Nurse Practitioner 02/03/20 09/03/20 documented as of this encounter
--- OUTSIDE RECORDS SUMMARY | 2024-01-11 19:01 | XMS_ITS | Encounter Summary ---
Author Organization [facility] Address [address] [place] [address] Care Team Providers Care Family Law Legal Assistant Name Role Phone Hermila Orlando APRN Primary Care Provider [phone] Reason for Visit * Auth/Cert Specialty Diagnoses / Procedures Referred By Mikayla t Referred To Contact Diagnoses Dysphagia, unspecified Procedures [place] ESOPHAGOGASTRODUODENOSCOPY TRANSORAL DIAGNOSTIC ESOPHAGOGASTRODUODENOSCOPY Referral ID Status Reason Start Date Expiration Date Visits Re quested Visits Authorized [id number] 1 1 Encounter Details Date Type Department Care Team (Late st Contact Info) Description 09/04/2020 2:38 PM EDT Anesthesia Event [facility] ENDO [facility]ES [address] [place] [address] Raul Silva Jr., MD [address] [place] [id number] Anesthesia Record Procedure Summary Procedure Name Responsible Anesthesiologist Anesthesia Start Time Anesthesia Stop Time ESOPHAGOGASTRODUODENOSCOPY Idalia Silva Jr., MD 09/04/20 1438 09/04/20 1458 Events Date Time Event Comment 09/04/2020 1410 1434 AN Equip Check 1438 An Start Data 1438 An Start The patient was reevaluated immediately before moderate or deep sedation use and before anesthesia induction. 1442 An Induction RSI with cricoi d pressure until tube confirmation 1443 An Intubation 1452 An Extubation 1454 an stop data 1458 Handoff to RN The following has been [...] of report from the receiving PACU/ICU team 1458 An Stop Meds Name Total lidocaine PF (XYLOCAINE) local injection 1% 50 mg propofol (DIPRIVAN) injection 300 mg Rocuronium 50 mg/5mL 5 mg dexamethasone (DECADRON) 4 mg/mL 8 mg ondansetron 2 mg/mL 4 mg succinylcholine (ANECTINE) 20 mg/mL inje ction 200 mg esmolol (BREVIBLOC) injection 100 mg/mL 50 mg lactated ringers infusion 400 mL * Agents Name O2 Desflurane * Blood No blood administrations on file. Lines, Drains, and Airways Type Details Placement Removal Peripheral IV Placement Date: 08/20 08/10; Placement Time: 1404; Catheter Size: 20 G; Orientation: Anterior, Right; Location: Forearm; Site Prep: Chlorhexidine; Local Anes: None; Technique: Anatomical landmarks; Inserted by: Norah GARCIA; Insertion Attempts: 1; Patient Tolerance: Tolerated well; Removal Date: 09/04/20; Removal Time: 1534 09/04/20 1404 by Yue Wilder RN 09/04/20 1534 by Norah Gallardo RN ETT Placement Date: 08/20 08/10; Placement Time: 1443 (created via procedure documentation); Tube Size: 7 mm; Blade Size: 3; Location: Oral; Removal Date: 09/04/20; Removal Time: 1452 09/04/20 1443 by William Price CRNA 09/04/20 1452 by William Price CRNA documented in this encounter 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 Tobacco [...] OR Notes * Anesthesia Postprocedure Evaluation - William Price CRNA - 09/04/2020 2:58 PM EDT Patient: Ivon Erwin Procedure Summary Date: 09/04/20 Room / Location: [facility] END[facility] 2 / [facility] END[facility] Anesthesia Start: 1438 Anesthesia Stop: Procedure: ESOPHAGOGASTRODUODENOSCOPY (N/A ) Diagnosis: Surgeons: Aristides Mai MD Provider: Raul Silva Jr., MD Anesthesia Type: general ASA Status: 3 Anesthesia Type: general Vitals No vitals data found for the desired time range. Post Anesthesia Care and Evaluation Patient location during evaluation: PACU Patient participation: complete - patient participated Level of consciousness: awake and alert Pain management: adequate Airway patency: patent Anesthetic complications: No anesthetic complications PONV Status: none Cardiovascular status: hemodynamically stable and acceptable Respiratory status: nonlabored ventilation, acceptable and nasal cannula Hydration status: acceptable * Anesthesia Procedure Notes - William Price CRNA - 09/04/2020 2:47 PM EDT Associated Order(s): Airway Airway Urgency: elective Date/Time: 09/04/2020 2:43 PM Airway not difficult General Information and Staff Patient location during procedure: OR AEROTRIANGULATION SPECIALIST: William Price CRNA Indications and Patient Condition Indications for airway management: airway protection Preoxygenated: yes MILS not maintained throughout Mask difficulty assessment: 0 - not attempted Final Airway Details Final airway type: endotracheal airway Successful airway: ETT Cuffed: yes Successful intubation technique: RSI and video laryngoscopy Facilitating devices/methods: intubating stylet and cricoid pressure Endotracheal tube insertion site: oral Blade: Sosa Blade size: 3 ETT size (mm): 7.0 Cormack-Lehane Classification: grade I - full view of glottis Placement verified by: chest auscultation and capnometry Cuff volume (mL): 6 Measured from: lips ETT/EBT to lips (cm): 20 Number of attempts at approach: 1 Assessment: lips, teeth, and gum same as pre-op and atraumatic intubation Additional Comments Negative epigastric sounds, Breath sound equal bilaterally with symmetric chest rise and fall. RSI with cricoid pressure until tube confirmation * Anesthesia Preprocedure Evaluation - Raul Silva Jr., MD - 09/04/2020 2:08 PM EDT Anesthesia Evaluation Patient summary reviewed and Nursing notes reviewed history of anesthetic complications: PONV NPO Solid Status: > 8 hours NPO Liquid Status: > 2 hours Airway Mallampati: I TM distance: >3 FB Neck ROM: full No difficulty expected Dental - normal exam Pulmonary - normal exam Cardiovascular - normal exam (+) hypertension, Neuro/Psych (-) seizures, CVA GI/Hepatic/Renal/Endo (+) morbid obesity, diabetes mellitus, (-) liver disease, no renal disease Musculoskeletal Abdominal Substance History [employer] Other Anesthesia Plan ASA 3 general Rapid sequence(ETT) intravenous induction Anesthetic plan, all risks, benefits, and alternatives have been provided, discussed and informed consent has been obtained with: patient. Plan discussed with AEROTRIANGULATION SPECIALIST. documented in this encounter Plan of Treatment Not on file documented as of this encounter Procedures Procedure Name Priority Date/Time Associated Diagnosis Comments ANESTHESIA INTUBATION Routine 09/04/2020 2:43 PM EDT documented in this encounter Results * BH AN ETT AIRWAY (09/04/2020 2:43 PM EDT) Narrative William Price CRNA - 09/04/2020 2:43 PM EDT William Price CRNA ? 09/04/2020 ??2:48 PM Airway Urgency: elective Date/Time: 09/04/2020 2:43 PM Airway not difficult General Information and Staff Patient location during procedure: OR AEROTRIANGULATION SPECIALIST: William Price CRNA Indications and Patient Condition Indications for airway management: airway protection Preoxygenated: yes MILS not maintained throughout Mask difficulty assessment: 0 - not attempted Final Airway Details Final airway type: endotracheal airway Successful airway: ETT Cuffed: yes Successful intubation technique: RSI and video laryngoscopy Facilitating devices/methods: intubating stylet and cricoid pressure Endotracheal tube insertion site: oral Blade: Sosa Blade size: 3 ETT size (mm): 7.0 Cormack-Lehane Classification: grade I - full view of glottis Placement verified by: chest auscultation and capnometry Cuff volume (mL): 6 Measured from: lips ETT/EBT ??to lips (cm): 20 Number of attempts at approach: 1 Assessment: lips, teeth, and gum same as pre-op and atraumatic intubation Additional Comments Negative epigastric sounds, Breath sound equal bilaterally with symmetric chest rise and fall. RSI with cricoid pressure until tube confirmation us Raul Silva Jr., MD ANESTHESIA ORDERABLES F inal Result documented in this encounter Visit Diagnoses Not on filedocumented in this encounter Administered Medications Inactive Administered Medications - up to 3 most recent administrations Medication Order MAR Action Action Date Dose Rate Site dexamethasone (DECADRON) injection Intravenous, As Needed, Starting on Mon09/04/20 at 1445 Given 09/04/2020 2:45 PM EDT 8 mg esmolol (BREVIBLOC) injection Intravenous, As Needed, Starting on Mon09/04/20 at 1447 Given 09/04/2020 2:47 PM EDT 50 mg lactated ringers infusion 9 mL/hr, Intravenous, Continuous, Starting on Mon09/04/20 at 1408 New Bag 09/04/2020 2:38 PM EDT New Bag 09/04/2020 2:08 PM EDT 9 mL/hr 9 mL/hr lidocaine PF 1% (XYLOCAINE) injection Intravenous, As Needed, Starting on Mon09/04/20 at 1442 Given 09/04/2020 2:42 PM EDT 50 mg ondansetron (ZOFRAN) injection Intravenous, As Needed, Starting on Mon09/04/20 at 1445 Given 09/04/2020 2:45 PM EDT 4 mg Propofol (DIPRIVAN) injection Intravenous, As Needed, Starting on Mon09/04/20 at 1442 Given 09/04/2020 2:42 PM EDT 300 mg rocuronium (ZEMURON) injection Intravenous, As Needed, Starting on Mon09/04/20 at 1442 Given 09/04/2020 2:42 PM EDT 5 mg succinylcholine (ANECTINE) injection Intravenous, As Needed, Starting on Mon09/04/20 at 1442 Given 09/04/2020 2:42 PM EDT 200 mg documented in this encounter Care Teams Family Law Legal Assistant Relationship Specialty Start Date End Date Hermila Orlando APRN [address] [place] [address] PCP - General Nurse Practitioner 09/04/20 12/06/20 documented as of this encounter
--- OUTSIDE RECORDS SUMMARY | 2024-01-11 19:01 | XMS_ITS | Encounter Summary ---
Author Organization [facility] Address [address] [place] [address] Care Team Providers Care [employer] Lead Name Role Phone OrlandoHermila kessler TERESA Primary Care Provider [phone] Encounter Details Date Type Department Care Team (Late st Contact Info) Description 04/01/2021 Telephone [facility] GASTRO[facility]OLOG[facility] [address] [facility] [address] [place] [address] Jacky Damon APRN [address] [place] [address] 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 Tobacco Use Types Packs/Day Years [...] Telephone Encounter - Chata Judge LPN - 04/02/2021 3:47 PM EST I called and talked to patient. Jacky Damon APRN is out of office. I sent Remy message to schedule an EGD with Dr Mai for dysphagia. * Telephone Encounter - Chata Judge LPN - 04/02/2021 8:17 AM EST I called patient and left voice message for her to return my call. * Telephone Encounter - Alysa Corbin RegSched Rep - 04/01/2021 4:00 PM EST Pt called to reschedule her appointment with Jacky, pt wants to see if she could go ahead and schedule an egd even though it has not been an entire year yet since her last one. Advised patient she will likely need an office visit first but told her I would send a message back to double check. documented in this encounter Plan of Treatment Not on file documented as of this encounter Visit Diagnoses Not on filedocumented in this encounter Care Teams Cit[employer] Lead Relationship Specialty Start Date End Date Hermila Orlando APRN [address] [place] [address] PCP - General Nurse Practitioner 12/07/20 documented as of this encounter
--- OUTSIDE RECORDS SUMMARY | 2024-01-11 19:01 | XMS_ITS | Encounter Summary ---
Author Organization [facility] Address [address] [place] [address] Care Team Providers Care Contracting Analyst Name Role Phone Hermila Orlando APRN Primary Care Provider [phone] Reason for Visit * Reason Onset Date Comments Med Refill 09/04/2020 Encounter Details Date Type Department Care Team (Late st Contact Info) Description 09/04/2020 Refill [facility] GASTROENTEROLOGY [address] [facility] [address] [place] [address] Aristides Mai MD [address] [facility] [address] [place] [address] 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 Tobacco Use Types Packs/Day Years [...] on filedocumented in this encounter Care Teams Contracting Analyst Relationship Specialty Start Date End Date Hermila Orlando APRN [address] [place] [address] PCP - General Nurse Practitioner 09/04/20 12/06/20 documented as of this encounter
--- OUTSIDE RECORDS SUMMARY | 2024-01-11 19:01 | XMS_ITS | Encounter Summary ---
Author Organization [facility] Address [address] [place] [address] Care Team Providers Care Chips Screen Tender Name Role Phone Hermila Orlando APRN Primary Care Provider [phone] Reason for Visit * Auth/Cert Specialty Diagnoses / Procedures Referred By Mikayla t Referred To Contact Diagnoses Dysphagia, unspecified type Dysphagia, unspecified type [R13.10] Procedures [place] ESOPHAGOGASTRODUODENOSCOPY TRANSORAL DIAGNOSTIC ESOPHAGOGASTRODUODENOSCOPY Referral ID Status Reason Start Date Expiration Date Visits Re quested Visits Authorized [id number] 1 1 Encounter Details Date Type Department Care Team (Late st Contact Info) Description 12/09/2020 1:00 PM EDT - 12/09/2020 1:29 PM EDT Surgery [facility] ENDO SU[facility]ES [address] [place] [address] Aristides Mai MD [address] [facility] [address] [place] [address] ESOPHAGOGASTRODUODENOSCOPY [33940 (CPT??)] 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 Tobacco Use Types Packs/Day [...] Sign Reading Time Taken Comments Blood Pressure 166/98 12/09/2020 10:10 AM EDT Pulse 112 12/09/2020 10:10 AM EDT Temperature 36.6 ??C (97.9 ??F) 12/09/2020 10:10 AM E DT Respiratory Rate 22 12/09/2020 10:10 AM EDT Oxygen Saturation 96% 12/09/2020 10:10 AM EDT Inhaled Oxygen Concentration - - Weight - - Height - - Body Mass Index - - documented in this encounter Discharge Instructions * Attachments The following attachments cannot be sent through Care Everywhere. * Monitored Anesthesia Care Care After (German) * Upper Endoscopy Adult Care After (German) documented in this encounter Medications at Time [...] lactated ringers solution 9 mL/hr Intravenous Continuous Jair Johnson MD 9 mL/hr at 12/09/20 1037 9 [...] Procedure: COLONOSCOPY; Surgeon: Virgil Wallace MD; Location: [facility]; Service: Gastroenterology; Laterality: N/A; ??? COLONOSCOPY N/A 02/05/2020 Procedure: COLONOSCOPY; Surgeon: Aristides Mai MD; Location: [facility]; Service: Gastroenterology; Laterality: N/A; ??? DILATATION AND CURETTAGE ??? ENDOSCOPY N/A 06/13/2019 Procedure: ESOPHAGOGASTRODUODENOSCOPY; Surgeon: Virgil Wallace MD; Location: [facility]; Service: Gastroenterology; Laterality: N/A; ??? ENDOSCOPY several most recent ??? ENDOSCOPY 02/05/2020 Procedure: ESOPHAGOGASTRODUODENOSCOPY; Surgeon: Aristides Mai MD; Location: [facility]; Service: Gastroenterology;; ??? ENDOSCOPY N/A 09/04/2020 Procedure: ESOPHAGOGASTRODUODENOSCOPY; Surgeon: Aristides Mai MD; Location: [facility]; Service: Gastroenterology; Laterality: N/A; ??? HYSTERECTOMY [...] dysphagia could be related to her ulcerations. NATY Orlando documented in this encounter Plan of Treatment Not on file documented as of this encounter Procedures Procedure Name Priority Date/Time Associated Diagnosis Comments GASTRIN Routine 12/09/2020 1:50 PM EDT Esophageal stenosis Nausea and vomiting, intractability of vomiting not specified, unspecified vomiting type TISSUE PATHOLOGY EXAM Routine 12/09/2020 1:34 PM EDT Dysphagia, unspecified type MO ESOPHAGOGASTRODUODENOSCOP Y TRANSORAL DIAGNOSTIC 12/09/2020 1:20 PM [...] 4:11 PM EDT Performed at: ??01 - [address] ??[id number] Editor Magazine: Yaritza Garcia MD, Phone: ??[phone] us Aristides Mai MD LAB BLOOD ORDERABLES Magdalena breaux Result Performing Organization Address City/State/[facility] Co de Phone Number [facility] [address] [place] [address], * Tissue Pathology Exam (12/09/2020 1:34 PM EDT) Case Report Surgical Pathology Report ? Case: [id number] ? Authorizing Provider: ??Aristides Mai MD ?? Collected: ? 12/09/2020 01:34 PM ? Ordering Location: ? [facility] ?? Received: ?12/09/2020 02:32 PM ? ENDO SUITES ? Pathologist: ? Cade Prajapati DO ? Specimen: ?Esophagus, esophageal bx for pathology ? 12/11/2020 3:55 PM [facility] Clinical Information Dysphagia, esophageal stenosis, nausea and vomiting 12/11/2020 3:55 PM [facility] Final Diagnosis ESOPHAGUS, BIOPSY: Squamous mucosa with acute esophagitis, focal erosion, and reactive mucosal changes Increased intraepithelial eosinophils (23 eosinophils per single high-power field) See comment 12/11/2020 3:55 PM [facility] Comment Sections from the esophageal biopsy show [...] endoscopic correlation is required. 12/11/2020 3:55 PM [facility] Gross Description The specimen is received in formalin labeled esophageal biopsy and consists of 2 amaya soft tissue fragments aggregating 0.4 x 0.4 x 0.2 cm submitted entirely in a single cassette. HM 12/11/2020 3:55 PM [facility] Microscopic Description The slides are reviewed and demonstrate histopathologic features supporting the above rendered diagnosis. 12/11/2020 3:55 PM EDT [facility] Tissue Specimen from esophagus / Unknown 12/09/2020 1:34 PM EDT 12/09/2020 2:32 PM EDT Aristides Mai MD PATHOLOGY/CYTOLOGY ORDERA BLES Final Result [facility]
[address] [place] [address], * ENDOSCOPY, INT (12/09/2020) Aristides Mai MD INTERFACE NEEDS Final Res ult documented in this encounter Visit Diagnoses Diagnosis Dysphagia- Primary Dysphagia, unspecified type Esophageal stenosis Stricture and stenosis of esophagus Nausea and vomiting, intractability of vomiting not specified, unspecified vomiting type Dysphagia, unspecified type documented in this encounter Admitting Diagnoses [...] ineffective. documented in this encounter Care Teams Chips Screen Tender Relationship Specialty Start Date End Date Hermila Orlando APRN [address] [place] [address] PCP - General Nurse Practitioner 12/07/20 documented as of this encounter
--- OUTSIDE RECORDS SUMMARY | 2024-01-11 19:01 | XMS_ITS | Encounter Summary ---
[facility] Organization [facility] Address [address] [place] [address] Care Team Providers Care Bale Breaker Operator Name Role Phone Hermila Orlando TERESA Primary Care Provider [phone] Reason for Visit * Auth/Cert Specialty Diagnoses / Procedures Referred By Mikayla t Referred To Contact Diagnoses Dysphagia, unspecified Procedures MI ESOPHAGOGASTRODUODENOSCOPY TRANSORAL DIAGNOSTIC ESOPHAGOGASTRODUODENOSCOPY Referral ID Status Reason Start Date Expiration Date Visits Re quested Visits Authorized [id number] 1 1 Encounter Details Date Type Department Care Team (Late st Contact Info) Description 09/04/2020 1:36 PM EDT - 09/04/2020 3:50 PM EDT Hospital Encounter [facility] [address] [place] [address] Aristides Mai MD [address] [facility] [address] [place] [address] Eosinophilic esophagitis Discharge Disposition: Home or Self Care Social [...] Sign Reading Time Taken Comments Blood Pressure 99/79 09/04/2020 3:20 PM EDT Pulse 90 09/04/2020 3:20 PM EDT Temperature 36.7 ??C (98 ??F) 09/04/2020 2:57 PM EDT Respiratory Rate 16 09/04/2020 2:57 PM EDT Oxygen Saturation 94% 09/04/2020 3:20 PM EDT Inhaled Oxygen Concentration - - Weight 147 kg (324 lb 3.2 oz) 09/04/2020 1:58 PM EDT Height 167.6 cm (5' 6 ) 09/04/2020 1:58 PM EDT Body Mass Index 52.33 09/04/2020 1:58 PM EDT documented in this encounter Discharge Instructions * Attachments The following attachments cannot be sent through Care Everywhere. * Upper Endoscopy Adult Care After (Swiss) * General Anesthesia Adult Care After (Swiss) * Sucralfate oral suspension (Swiss) documented in this encounter Medications at Time of Discharge amitriptyline (ELAVIL) 25 MG tablet Take one tab at night for one week then increase to 2 tabs at night thereafter if tolerated 60 tablet 2 04/02/2020 1 amLODIPine (NORVASC) 5 MG tablet Take 5 mg by mouth Daily. 2 budesonide (Pulmicort) 0.25 MG/2ML nebulizer solution Mix 2 vials in 5 pkts Splenda and swallow twice daily 60 each 1 01/08/2020 2 budesonide (PULMICORT) 0.5 MG/2ML nebulizer solution Take 1 ampule by nebulization 2 (two) times a day. 03/31/2020 1 Cariprazine HCl (Vraylar) 4.5 MG capsule Take 4.5 mg by mouth Daily. 03/19/2020 2 escitalopram (LEXAPRO) 20 MG tablet Take 20 mg by mouth Daily. 05/29/2019 1 losartan (COZAAR) 50 MG tablet Take 50 mg by mouth Daily. 1 metFORMIN (GLUCOPHAGE) 500 MG tabletIndication s:Type 2 diabetes mellitus without complication, without long-term current use of insulin TAKE 1 TABLET BY MOUTH TWICE DAILY WITH MEALS 60 tablet 03/28/2020 2 valACYclovir (VALTREX) 1000 MG tabletIndication s:HSV (herpes simplex virus) infection Take 1 tablet by mouth once daily 90 tablet 03/23/2020 3 documented as of this encounter H&P Notes * Aristides Mai MD - 09/04/2020 2:16 PM EDT Images from the original note were not included. Gastroenterology Consult Note Reason for Consultation: Dysphagia Patient Care Team: Hermila Orlando APRN as PCP - General (Nurse Practitioner) Chief complaint: Dysphagia History of present illness: The patient is a 29-year-old female with a history of eosinophilic esophagitis. She had an upper endoscopy on 04/07/2020. She was dilated to 54 Chinese. She says she does better for about 10 weeks and then she begins having troubles again. She continues on her Protonix twice daily as well as her budesonide. She has seen a dietitian to help her with dietary measures. She was seen on 05/12/2020 and at that time her swallowing was much better. She is here for reevaluation.She exceeded the BMI limit and she was transferred to the hospital unit for endoscopy. Allergies Allergen Reactions ??? Augmentin [Amoxicillin-Pot Clavulanate] Anaphylaxis Hives, swollen lips. ??? Bee Venom Anaphylaxis Prior to Admission medications Medication Sig Start Date End Date Taking? Authorizing Provider amitriptyline (ELAVIL) 25 MG tablet Take one tab at night for one week then increase to 2 tabs at night thereafter if tolerated 04/02/20 Yes Jacky Damon APRN amLODIPine (NORVASC) 5 MG tablet Take 5 mg by mouth Daily. Yes Preston Hinds MD budesonide (Pulmicort) 0.25 MG/2ML nebulizer solution Mix 2 vials in 5 pkts Splenda and swallow twice daily Patient taking differently: 0.25 mg 2 (two) times a day. Mix 2 vials in 5 pkts Splenda and swallow twice daily 01/08/20 Yes Jacky Damon APRN budesonide (PULMICORT) 0.5 MG/2ML nebulizer solution Take 1 ampule by nebulization 2 (two) times a day. 03/31/20 Yes Preston Hinds MD Cariprazine HCl (Vraylar) 3 MG capsule capsule Take 1 capsule by mouth Daily. 1/28/21 Yes Provider,MD Preston escitalopram (LEXAPRO) 20 MG tablet Take 20 mg by mouth Daily. 05/29/19 Yes ProviderPreston MD metFORMIN (GLUCOPHAGE) 500 MG tablet TAKE 1 TABLET BY MOUTH TWICE DAILY WITH MEALS 03/28/20 Yes Tamy Hughes APRN valACYclovir (VALTREX) 1000 MG tablet Take 1 tablet by mouth once daily 03/23/20 Yes Radha Chau, DO Current Facility-Administered Medications Medication Dose Route Frequency Provider Last Rate Last Admin ??? lactated ringers bolus 500 mL 500 mL Intravenous Once PRN Raul Silva Jr., MD ??? lactated ringers infusion 9 mL/hr Intravenous Continuous Raul Silva Jr., MD 9 mL/hr at 09/04/20 1408 9 mL/hr at 09/04/20 1408 ??? ondansetron (ZOFRAN) injection 4 mg 4 mg Intravenous Q6H PRN Raul Silva Jr., MD 4 mg at 09/04/20 1410 Past Medical History: Diagnosis Date ??? Anxiety ??? Depression ??? Diabetes mellitus (CMS/HCC) diagnosed , checks fsbg daily ??? Endometriosis ??? Eosinophilic esophagitis ??? Fibroid tumor ??? History of appendectomy 07/12/2019 [place] ??? Hypertension borderline, no meds prescribed [...] Laterality: N/A; ??? ENDOSCOPY several most recent -2019 ??? ENDOSCOPY 02/05/2020 Procedure: ESOPHAGOGASTRODUODENOSCOPY; Surgeon: Aristides Mai MD; Location: [facility] END[facility]; Service: Gastroenterology;; ??? HYSTERECTOMY Partial ??? TONSILLECTOMY ??? TUBAL ABDOMINAL LIGATION Umbilical hernia repair June 2020 Family History Problem Relation Age of Onset [...] ------ Review of Systems Vital Signs Temp: [97.3 ??F (36.3 ??C)] 97.3 ??F (36.3 ??C) Heart Rate: [103] 103 Resp: [22] 22 BP: (151)/(102) 151/102 Physical Exam: General Appearance: Alert, in no acute distress Head: Normocephalic, without obvious abnormality, atraumatic Eyes: Lids and lashes normal, conjunctivae and sclerae normal, no icterus, no pallor, corneas clear, PERRLA Neck: No adenopathy, supple, trachea midline, no thyromegaly, no JVD Lungs: respirations regular, even and unlabored Heart: Regular rhythm and normal rate Chest Wall: Symmetrical respiratory expansion Abdomen: No masses, no organomegaly, soft nontender Extremities: Moves all extremities well, no edema, no cyanosis, no redness Skin: No bleeding, bruising or rash Neurologic: Cranial nerves 2 - 12 grossly intact, no focal deficits LABS: Lab Results (last 48 hours) Procedure Component Value Units Date/Time POC Glucose Once [[id number]] (Abnormal) Collected: 09/04/20 1403 Specimen: Blood Updated: 09/04/20 1404 Glucose 131 mg/dL Comment: Meter: [id number] Master Naval Parachutist: [id number] Paulina Almazan RADIOLOGY: Imaging Results (Last 24 Hours) No results found for the last 24 hours. Assessment/Plan * No active hospital problems. * Impressions and plan #1 history of dysphagia and eosinophilic esophagitis: We talked about the options. We will plan a repeat upper endoscopy and dilate. She may have to wait a few hours as they haveto make room for us on the schedule there. She is okay with that. Her last biopsies she had only 5 eosinophils per high-power field and seem to be responding to therapy. I discussed the patient's findings and my recommendations with patient Aristides Mai MD 09/04/20 14:16 EDT documented in this encounter OR Notes * Op Note - Aristides Mai MD - 09/04/2020 2:54 PM EDT EGD with biopsy and dilated Instrument: Olympus video gastroscope Medications: As per anesthesia Indications: The patient is an 29-year-old with a history of eosinophilic esophagitis and dysphagia. She has been dilated in March to 54 Chinese. Procedure: After the patient was informed of the risks, benefits, alternatives to the procedure, informed consent was obtained. The endoscope was inserted into the oropharynx, down the esophagus, into the stomach and duodenum. The distal esophagus had some ulceration. This was biopsied. This was area was dilated to 15, 16.5 mm with a balloon. There was some mild gastritis. There were longitudinalfurrows and some rings in the esophagus. There was no tight stricture. There was a copious amount of bile in the stomach. Retroflexion was performed. It was difficult to see the cardia. There was debris in that area. The duodenal bulb and descending duodenum were unremarkable. The patient toleratedprocedure well and there were no immediate complications. Impressions and plan #1 eosinophilic esophagitis with longitudinal furrows and rings. #2 ulceration at the GE junction: I am going to put her on some Carafate liquid for the next few weeks to heal that up and be sure she is taking her Protonix twice daily. #3 gastritis Plan: Follow-up in the office documented in this encounter Plan of Treatment Not on file documented as of this encounter Procedures Procedure Name Priority Date/Time Associated Diagnosis Comments POCT GLUCOSE FINGERSTICK Routine 021 3:49 PM EDT TISSUE PATHOLOGY EXAM Routine 09/04/2020 2:51 PM EDT Eosinophilic esophagitis MI ESOPHAGOGASTRODUODENOSCOP Y TRANSORAL DIAGNOSTIC 09/04/2020 2:38 PM EDT ECG 12-LEAD Routine 09/04/2020 2:09 PM EDT POCT GLUCOSE FINGERSTICK Routine 021 2:03 PM EDT ENDOSCOPY, INT 09/04/2020 documented in this encounter Results * (ABNORMAL) POC Glucose Once (09/04/2020 3:49 PM EDT) Glucose 143(H) 70 - 130 mg/dL 09/04/2020 3:59 PM EDT [facility] Comment:Meter: [id number] Op erator: [id number] Paulina Almazan Blood 09/04/2020 3:49 PM EDT 09/04/2020 3:59 PM EDT Aristides Mai MD POINT OF CARE TEST ORDERA BLES Final Result [facility]
[address] [place] [address], * Tissue Pathology Exam (09/04/2020 2:51 PM EDT) Case Report Surgical Pathology Report ? Case: [id number] ? Authorizing Provider: ??Aristides Mai MD ?? Collected: ? 09/04/2020 02:51 PM ? Ordering Location: ? [facility] ?? Received: ?09/07/2020 07:37 AM ? ENDO SUITES ? Pathologist: ? Jey Bowman MD ? Specimen: ?Esophagus, Esophagus bx for path ? 09/08/2020 1:53 PM T [facility] Clinical Information Eosinophilic esophagitis. 09/08/2020 1:53 PM T [facility] Final Diagnosis ESOPHAGUS, BIOPSY: Squamocolumnar mucosa with active esophagitis and increased intraepithelial eosinophils (up to 7 per high-power field), see Comment Negative for intestinal metaplasia, dysplasia, or carcinoma COMMENT: The specimen displays a portion squamocolumnar with mild active esophagitis and scattered intraepithelial eosinophils. It should be noted, though, that the specimen consists almost entirely of glandular mucosa, and the amount of squamous epithelium is extremely minute, and may not be product support representative of the esophagus as a whole. 09/08/2020 1:53 PM [facility] Gross Description Specimen 1 is received in formalin labeled esophagus biopsy and consists of a 0.3 x 0.2 x 0.1 cm fragment of amaya soft tissue submitted entirely in 1A. CLB 09/08/2020 1:53 PM EDT [facility] Microscopic Description The slides are reviewed and demonstrate histopathologic features supporting the above rendered diagnosis. 09/08/2020 1:53 PM EDT [facility] Tissue Specimen from esophagus / Unknown 09/04/2020 2:51 PM EDT 09/07/2020 7:37 AM EDT Aristides Mai MD PATHOLOGY/CYTOLOGY ORDERA BLES Final Result [facility]
[address] [place] [address], * ECG 12 Lead (09/04/2020 2:09 PM EDT) QT Interval 362 ms ECG QTC Interval 447 ms ECG 09/04/2020 2:09 PM EDT 09/04/2020 4:14 PM EDT Narrative ECG - 09/04/2020 4:14 PM EDT Test Reason : pre procedure Blood Pressure : ?? */* ?? mmHG Vent. Rate : ??92 BPM ? Atrial Rate : ??92 BPM ?? P-R Int : 142 ms ?QRS Dur : ??86 ms ?QT Int : 362 ms ? P-R-T Axes : ??32 ??29 ??-3 degrees ?? QTc Int : 447 ms Poor data quality, interpretation may be adversely affected Normal sinus rhythm Inferior infarct , age undetermined Abnormal ECG When compared with ECG of 03-FEB-2020 17:07, No significant change was found Confirmed by MD Connelly Robert ([id number]) on 09/04/2020 4:14:22 PM Referred By: CLAUDIO ? Confirmed By: Calixto Connelly MD Procedure Note Calixto Connelly MD - 07/16/2021 Test Reason : pre procedure Blood Pressure : */* mmHG Vent. Rate : 92 BPM Atrial Rate : 92 BPM P-R Int : 142 ms QRS Dur : 86 ms QT Int : 362 ms P-R-T Axes : 32 29 -3 degrees QTc Int : 447 ms Poor data quality, interpretation may be adversely affected Normal sinus rhythm Inferior infarct , age undetermined Abnormal ECG When compared with ECG of 03-FEB-2020 17:07, No significant change was found Confirmed by MD Godwin, Calixto ([id number]) on 09/04/2020 4:14:22 PM Referred By: CLAUDIO Confirmed By: Calixto Connelly MD Raul Silva Jr., MD ECG ORDERABLES Final R esult ECG * (ABNORMAL) POC Glucose Once (09/04/2020 2:03 PM EDT) Glucose 131(H) 70 - 130 mg/dL 09/04/2020 2:04 PM EDT [facility] Comment:Meter: [id number] Op erator: [id number] Paulina Almazan Blood 09/04/2020 2:03 PM EDT 09/04/2020 2:04 PM EDT Aristides Mai MD POINT OF CARE TEST ORDERA BLES Final Result Performing Organization Address City/[facility]/ZIP Co de Phone Number [facility]
[address] [place] [address], * ENDOSCOPY, INT (09/04/2020) Aristides Mai MD INTERFACE NEEDS Final Res ult documented in this encounter Visit Diagnoses Diagnosis Eosinophilic esophagitis documented in this encounter Administered Medications Inactive Administered Medications - up to 3 most recent administrations Medication Order MAR Action Action Date Dose Rate Site lactated ringers bolus 500 mL 500 mL, Intravenous, at 2,000 mL/hr, Administer over 0.25 Hours, Once As Needed, for hypovolemia, call anesthesiologist before initiating, Starting on Mon09/04/20 at 1410, For 1 dose, Indications: HypovolemiaIndications:Hypovolemia lactated ringers bolus 500 mL 500 mL, Intravenous, at 2,000 mL/hr, Administer over 0.25 Hours, Once As Needed, for hypovolemia, call anesthesiologist before initiating, Starting on Mon09/04/20 at 1448, For 1 dose, Indications: HypovolemiaIndications:Hypovolemia lactated ringers infusion 9 mL/hr, Intravenous, Continuous, Starting on Mon09/04/20 at 1408 New Bag 09/04/2020 2:38 PM EDT New Bag 09/04/2020 2:08 PM EDT 9 mL/hr 9 mL/hr ondansetron (ZOFRAN) injection 4 mg 4 mg, Intravenous, Every 6 Hours PRN, Nausea, Vomiting, Starting on Mon09/04/20 at 1410 Given 09/04/2020 2:10 PM EDT 4 mg ondansetron (ZOFRAN) injection 4 mg 4 mg, Intravenous, Once As Needed, Nausea, Vomiting, Starting on Mon09/04/20 at 1449, For 1 dose, If BOTH ondansetron (ZOFRAN) and promethazine (PHENERGAN) are ordered use ondansetron first and THEN promethazine IF ondansetron is ineffective. sodium chloride 0.9 % injection 10 mL 10 mL, Intravenous, Once, On Mon09/04/20 at 1408, For 1 dose Given 09/04/2020 2:09 PM EDT 10 mL documented in this encounter Active and Recently Administered Medications Times are shown in EDT. Scheduled Medication Order 09/02/2020 09/03/2020 09/04/2020 sodium chloride 0.9 % injection 10 mL (COMPLETED) 10 mL, Intravenous, Once, On Mon09/04/20 at 1408, For 1 dose 1409 (Given - Provid er: Yue Wilder RN) Continuous Medication Order 09/02/2020 09/03/2020 09/04/2020 lactated ringers infusion 9 mL/hr, Intravenous, Continuous, Starting on Mon09/04/20 at 1408 1408 (New Bag - Prov ider: Yue Wilder RN)1437 (Paused - Provider: William Price CRNA - Comment: Switch to gravity)1438 (New Bag - Provider: William Price CRNA)1451 (Stopped - Provider: William Price CRNA) PRN Medication Order 09/02/2020 09/03/2020 09/04/2020 lactated ringers bolus 500 mL 500 mL, Intravenous, at 2,000 mL/hr, Administer over 0.25 Hours, Once As Needed, for hypovolemia, call anesthesiologist before initiating, Starting on Mon09/04/20 at 1410, For 1 dose, Indications: Hypovolemia lactated ringers bolus 500 mL 500 mL, Intravenous, at 2,000 mL/hr, Administer over 0.25 Hours, Once As Needed, for hypovolemia, call anesthesiologist before initiating, Starting on Mon09/04/20 at 1448, For 1 dose, Indications: Hypovolemia ondansetron (ZOFRAN) injection 4 mg 4 mg, Intravenous, Every 6 Hours PRN, Nausea, Vomiting, Starting on Mon09/04/20 at 1410 1410 (Given - Provid er: Yue Wilder RN) ondansetron (ZOFRAN) injection 4 mg 4 mg, Intravenous, Once As Needed, Nausea, Vomiting, Starting on Mon09/04/20 at 1449, For 1 dose, If BOTH ondansetron (ZOFRAN) and promethazine (PHENERGAN) are ordered use ondansetron first and THEN promethazine IF ondansetron is ineffective. documented in this encounter Care Teams Bale Breaker Operator Relationship Specialty Start Date End Date Hermila Orlando APRN [address] [place] [address] PCP - General Nurse Practitioner 09/04/20 12/06/20 documented as of this encounter
--- OUTSIDE RECORDS SUMMARY | 2024-01-11 19:01 | XMS_ITS | Encounter Summary ---
Author Organization [facility] Address [address] [place] [id number] Care Team Providers Care Car Checker Name Role Phone Joyce Shaw APRN Primary Care Provider [phone] Reason for Visit * Reason Comments Med Refill Encounter Details Date Type Department Care Team (Late st Contact Info) Description 03/27/2020 Refill [facility] [address] [place] [address] Tamy Hughes, FINANCIAL REPORTING MANAGER [address] [place] [address] Type 2 diabetes mellitus without complication, without long-term current use of insulin 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 Tobacco Use Types Packs/Day Years [...] as of this encounter Visit Diagnoses Diagnosis Type 2 diabetes mellitus without complication, without long-term current use of insulin documented in this encounter Care Teams Car Checker Relationship Specialty Start Date End Date Joyce Shaw APRN [address] [place] [id number] PCP - General Nurse Practitioner 02/03/20 09/03/20 documented as of this encounter
--- OUTSIDE RECORDS SUMMARY | 2024-01-11 19:01 | XMS_ITS | Encounter Summary ---
Author Organization [facility] Address [address] [place] [address] Care Team Providers Care Ecommerce Merchandising Manager Name Role Phone Hermila Orlando APRN Primary Care Provider [phone] Encounter Details Date Type Department Care Team (Late st Contact Info) Description 05/03/2021 Telephone [facility] GASTROENTEROLOGY [address] [facility] [address] [place] [phone] Brunilda Mcghee PA-C [address] [facility] [address] [place] [address] 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 Tobacco Use Types Packs/Day Years [...] Telephone Encounter - Chata Judge LPN - 05/03/2021 3:55 PM EDT I tried calling patient to let her know her know I am working with the insurance to get her budesonide approved and will call and let her know the status once the insurance contacts me but her phone was out of order. I will try again tomorrow. * Telephone Encounter - Mi Mayo - 05/03/2021 11:48 AM EDT Patient states that her insurance company is needing a PA on her budesonide 0.25 mg/2ml and she states that her pharmacy had sent a message in regards to the prior auth and she states that she reallyneeds to get this medication filled as soon as possible. Please advise and call the pt back at [phone]. documented in this encounter Plan of Treatment Not on file documented as of this encounter Visit Diagnoses Not on filedocumented in this encounter Additional Health Concerns Infection Onset Date Last Indicated Resolved Time COVID Screen (preop/placement) 04/29/2021 08/16/2021 08/16/2021 10:45 PM EDT documented as of this encounter Care Teams Ecommerce Merchandising Manager Relationship Specialty Start Date End Date Hermila Orlando APRN [address] [place] [address] PCP - General Nurse Practitioner 12/07/20 documented as of this encounter
--- OUTSIDE RECORDS SUMMARY | 2024-01-11 19:01 | XMS_ITS | Encounter Summary ---
Author Organization [facility] Address [address] [place] [address] Care Team Providers Care Administrative Services Director Name Role Phone Hermila Orlando TERESA Primary Care Provider [phone] Reason for Visit * Reason Comments Nausea Abdominal Pain GI Bleeding Encounter Details Date Type Department Care Team (Late st Contact Info) Description 04/29/2021 7:30 AM EST Office Visit [facility] GASTROENTEROLOGY [address] [facility] [address] [place] [address] Jacky Damon, [employer] [address] [place] [address] Esophagitis, eosinophilic (Primary Dx); Gastroesophageal reflux disease with esophagitis without hemorrhage; Gastroparesis 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 Tobacco Use Types Packs/Day [...] Sign Reading Time Taken Comments Blood Pressure 172/97 04/29/2021 7:28 AM EST Pulse 94 04/29/2021 7:28 AM EST Temperature 36.5 ??C (97.7 ??F) 04/29/2021 7:28 AM ES T Respiratory Rate - - Oxygen Saturation - - Inhaled Oxygen Concentration - - Weight 138 kg (303 lb 12.8 oz) 04/29/2021 7:28 A M EST Height 167.6 cm (5' 6 ) 04/29/2021 7:28 AM EST Body Mass Index 49.03 04/29/2021 7:28 AM EST documented in this encounter Progress Notes * Jacky Damon APRN - 04/29/2021 7:30 AM EST GASTROENTEROLOGY OFFICE NOTE Ivon Erwin [id number] 1990 CARE TEAM Patient Care Team: Hermila Orlando APRN as PCP - General (Nurse Practitioner) Referring Provider: Hermila Orlando APRN Chief Complaint Patient presents with ??? Nausea ??? Abdominal Pain ??? GI Bleeding HISTORY OF PRESENT ILLNESS: Ivon presents in follow-up status post EGD for complaints of severe acid reflux and difficulty swallowing. She has a history of eosinophilic esophagitis. She had been off of her PPI for about a month prior to EGD. EGD showed esophagitis in the lower third of the esophagus, mucosal changes including longitudinal furrows in the esophagus, mild inflammation in the gastric antrum and a small hiatal hernia was present. The esophagus was dilated. Esophageal biopsies were significant for 6-30 eosinophils per high-powered field. Pantoprazole 40 mg twice daily was represcribed to patient on 04/14. She reports that she has yet tostart this as the pharmacy tells her prior authorization needs to be done. We will check on the prior authorization. She has further complaints today of frequent nausea and having dark stool, maroon type color and sometimes tarry for the past 3 months. She has known gastroparesis. PAST MEDICAL HISTORY Past Medical History: Diagnosis [...] Mai MD; Location: [facility]; Service: Gastroenterology;; ??? ENDOSCOPY N/A 09/04/2020 Procedure: ESOPHAGOGASTRODUODENOSCOPY; Surgeon: Aristides Mai MD; Location: [facility]; Service: Gastroenterology; Laterality: N/A; ??? ENDOSCOPY N/A 12/09/2020 Procedure: ESOPHAGOGASTRODUODENOSCOPY; Surgeon: Aristides Mai MD; Location: [facility]; Service: Gastroenterology; Laterality: N/A; ??? HYSTERECTOMY Partial ??? TONSILLECTOMY ??? TUBAL ABDOMINAL LIGATION MEDICATIONS: Current Outpatient Medications: ??? budesonide (Pulmicort) 0.25 MG/2ML nebulizer solution, Mix 2 vials in 5 pkts Splenda and swallow twice daily, Disp: 60 each, Rfl: 1 ??? metoclopramide (REGLAN) 10 MG tablet, 30 minutes before meals as needed, Disp: 90 tablet, Rfl: 1 ??? ondansetron ODT (ZOFRAN-ODT) 4 MG disintegrating tablet, Place 1 tablet on the tongue Every 6 (Six) Hours As Needed for Nausea or Vomiting., Disp: 10 tablet, Rfl: 0 ??? pantoprazole (PROTONIX) 40 MG EC tablet, Take 1 tablet by mouth two times daily, Disp: 180 tablet, Rfl: 3 ??? sucralfate (CARAFATE) 1 g tablet, Take 1 g by mouth 4 (Four) Times a Day., Disp: , Rfl: ??? valACYclovir (VALTREX) 1000 MG tablet, Take 1 tablet by mouth once daily (Patient taking differently: Take 1,000 mg by mouth Daily.), Disp: 90 tablet, Rfl: 0 ALLERGIES Allergies Allergen Reactions ??? Augmentin [Amoxicillin-Pot [...] History Socioeconomic History ??? Marital status: Single Tobacco Use ??? Smoking status: Never Smoker ??? Smokeless tobacco: Never Used Vaping Use ??? Vaping Use: Never used Substance and Sexual Activity ??? Alcohol use: No ??? Drug use: No ??? Sexual activity: Defer PHYSICAL EXAM BP 172/97 (BP Location: Left arm, Patient Position: Sitting, Cuff Size: Adult) Pulse 94 Temp 97.7 ??F (36.5 ??C) (Temporal) Ht 167.6 cm (66 ) Wt (!) 138 kg (303 lb 12.8 oz) BMI 49.03 kg/m?? Physical Exam Vitals and nursing note reviewed. Constitutional: Appearance: Normal appearance. She is well-developed. HENT: Head: Normocephalic and atraumatic. Nose: Nose normal. Mouth/Throat: Mouth: Mucous membranes are moist. Pharynx: Oropharynx is clear. Eyes: Pupils: Pupils are equal, round, and reactive to light. Cardiovascular: Rate and Rhythm: Normal rate and regular rhythm. Pulmonary: Effort: Pulmonary effort is normal. Breath sounds: Normal breath sounds. No wheezing or rales. Abdominal: General: Bowel sounds are normal. Palpations: Abdomen is soft. There is no mass. Tenderness: There is abdominal tenderness in the right lower quadrant and epigastric area. There isno guarding or rebound. Hernia: No hernia is present. Musculoskeletal: General: Normal range of motion. Cervical back: Normal range of motion and neck supple. Skin: General: Skin is warm and dry. Neurological: Mental Status: She is alert and oriented to person, place, and time. Cranial Nerves: No cranial nerve deficit. Psychiatric: Behavior: Behavior normal. Judgment: Judgment normal. Results Review: Clinical Information Dysphagia, gastritis, diaphragmatic hernia, GERD with esophagitis Final Diagnosis ESOPHAGUS, BIOPSIES: Fragments of squamous mucosa with increased eosinophils (6-30 eosinophils/hpf) Negative for intestinal metaplasia, dysplasia, and neoplasia. See comment at 1132 Comment Esophagus biopsies show reactive epithelial changes with an increase in eosinophils. While such numbers could be seen in severe reflux, one must also consider the possibility of eosinophilic esophagitis. Correlation with clinical history and endoscopic findings is recommended. ASSESSMENT / PLAN 1. GERD 2. Eosinophilic esophagitis -Pantoprazole 40 mg twice daily -Budesonide 0.25 mg respules, mixed two respules in 5 packets of Splenda and swallow twice daily. Do not eat or drink for 30 minutes then rinse mouth. -EGD in 8 weeks to assess for eradication of EOE 3. Gastroparesis -Dietary modifications for gastroparesis -Reglan 10 mg 30 minutes for meals as needed. Patient advised of potential side effects of tardive dyskinesia and this medication is to be used short-term. Return in about 8 weeks (around 06/24/2021) for EGD. I discussed the patients findings and my recommendations with patient Jacky Damon APRN documented in this encounter Plan of Treatment Not on file documented as of this encounter Visit Diagnoses Diagnosis Esophagitis, eosinophilic- Primary Eosinophilic esophagitis Gastroesophageal reflux disease with esophagitis without hemorrhage Gastroparesis documented in this encounter Additional Health Concerns Infection Onset Date Last Indicated Resolved Time COVID Screen (preop/placement) 04/29/2021 08/16/2021 08/16/2021 10:45 PM EDT documented as of this encounter Care Teams Administrative Services Director Relationship Specialty Start Date End Date Hermila Orlando APRN [address] [address] PCP - General Nurse Practitioner 12/07/20 documented as of this encounter
--- OUTSIDE RECORDS SUMMARY | 2024-01-11 19:01 | XMS_ITS | Encounter Summary ---
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 Range HOLOGIC PANTHER 04/11/2021 9:03 PM EST [facility] Swab Nasopharyngeal structure / Unknown Collection / Unknown 04/11/2021 12:35 PM EST 04/11/2021 12:35 PM EST Narrative [facility] - 04/11/2021 9:03 PM EST Fact sheet for providers: https://www.fda.gov/media/049139/download Fact sheet for patients: https://www.fda.gov/media/314483/download Test performed by RT PCR. Aristides Mai MD MICROBIOLOGY - GENERAL OR DERABLES Final Result [facility]
[address] [phone] documented in this encounter Visit Diagnoses Diagnosis Pre-procedure lab exam Pre-procedural laboratory examination documented in this encounter Additional Health Concerns Infection Onset Date Last Indicated Resolved Time COVID Screen (preop/placement) 04/05/2021 04/11/2021 04/11/2021 9:03 PM EST documented as of this encounter Care Teams Bicycle Rental Clerk Relationship Specialty Start Date End Date Hermila Orlando APRN [address] [place] [address] PCP - General Nurse Practitioner 12/07/20 documented as of this encounter
--- OUTSIDE RECORDS SUMMARY | 2024-01-11 19:01 | XMS_ITS | Encounter Summary ---
[facility] [address] [place] [address] Care Team Providers Care Applications Manager Name Role Phone Declan Shawy TERESA Primary Care Provider [phone] Encounter Details Date Type Department Care Team (Late st Contact Info) Description 04/09/2020 10:00 AM EST - 04/09/2020 11:59 PM EST Hospital Encounter [facility] [address] [facility] [address] [place] [id number] Lin Agarwal, RD [address] [place] [address] Discharge Disposition: Home or Self Care Social [...] Concentration - - Weight 138 kg (304 lb 3.8 oz) 04/09/2020 10:21 A M EST Height 166.4 cm (5' 5.51 ) 04/09/2020 10:[address] Body Mass Index 49.84 04/09/2020 10:21 AM EST documented in this encounter Medications at Time of Discharge albuterol sulfate HFA 108 (90 Base) MCG/ACT inhalerIndication s:Pneumonia due to infectious organism, unspecified laterality, unspecified part of lung Inhale 2 puffs Every 4 (Four) Hours As Needed for Shortness of Air. 8 g 07/19/2019 1 amitriptyline (ELAVIL) 25 MG tablet Take one tab at night for one week then increase to 2 tabs at night thereafter if tolerated 60 tablet 2 04/02/2020 1 budesonide (Pulmicort) 0.25 MG/2ML nebulizer solution [...] mg by mouth Daily. 05/29/2019 1 metFORMIN (GLUCOPHAGE) 500 MG tabletIndications :Type 2 diabetes mellitus without complication, without long-term current use of insulin TAKE 1 TABLET BY MOUTH TWICE DAILY WITH MEALS 60 tablet 03/28/2020 2 metoclopramide (REGLAN) 10 MG tablet Take 1 [...] 03/23/2020 3 documented as of this encounter Consult Notes * StefanoSalinasin, BRISA - 04/09/2020 10:00 AM EST Adult Outpatient Nutrition Assessment/PES Patient Name: Ivon Erwin Date of : 1990 Assessment Date: 04/09/2020 Comments: Telephone nutrition consult, 60 minutes. This medical referred consult was provided as a telephone call,as patient is unable to attend an in-office appointment due to the COVID-19 crisis. Consent for treatment was given verbally. Patient describes problems with n/v, dysphagia and heartburn. Per GI note she has several esophageal strictures which require stretching. She has also been diagnosed with EOE. She was on Protonix forabout 6 mo and was advised to discontinue therapy. She was restarted yesterday but has not yet picked up prescription. She states that over the last several years she has had worsening dysphagia, with food feeling as though it gets stuck in her esophagus. She frequently will then vomit. Several times she has been unable to resolve on her own and has had to go to the emergency room. During the session we discussed the etiology of EOE and the 6 food elimination diet as treatment. Advised patient to avoid 6 most common food allergens: wheat, nuts/treenuts, milk, soy, eggs and fish/shellfish for 2 weeks. If symptoms resolve in 2 weeks we will begin challenge of reintroduction of each food group. Patient is agreeable. Provided patient with a copy of EOE elimination diet handout. Goals: - EOE elimination - Weight loss vs maintenance Total of 60 minutes spent with patient on nutrition counseling. Education based on Academy of Dietetics and Nutrition guidelines. Patient was provided with RD's contact information. Follow up visit is scheduled for 04/20/20 at 2:30 pm. Thank you for this referral. General Info Row Name 04/09/20 1021 Today's Session Person(s) attending today's session Patient Medical Surgery Nurse Services Used Today? No General Information How Well Do You Speak [place]? very well Do You Speak a Language Other Than [place] at Home? no Are you able to read and write [place]? No Lives With child(sergio), dependent Anthropometrics Row Name 04/09/20 1021 Anthropometrics Height 166.4 cm (65.51 ) Weight (!) 138 kg (304 lb 3.8 oz) [place] Body Weight (IBW) [place] Body Weight (IBW) (kg) 58.46 % [place] Body Weight 236.06 Body Mass Index (BMI) BMI (kg/m2) 49.94 Nutritional Info/Activity Row Name 04/09/20 1022 Nutritional Information Have you had weight changes? No What is your desired body weight? 90.9 kg (200 lb 6.4 oz) What is your motivation to lose weight? feel better, improve health History of eating disorder? No What cultural diet influences are important for you to follow? none Do you have difficulty chewing food? No Functional Status able to prepare meals;able to purchase food;ambulatory List any food aversions none How often during the day do you find yourself snacking? 0-1 times What is the biggest challenge you have with your diet? Food causing negative symptoms;Weight maintenance What type of support do you currently use to help you with your health issues? none Enter everything you can remember eating in the last 24 hours (1 day) Breakfast: Honey grahams and whole milk, Lunch: salad with italian dressing, Dinner: sloppy eron and mac and cheese Snack: ice cream Eating Environment Eating environment Family;Work Physical Activity Are you currently involved in an activity/exercise program? No Estimated/Assessed Needs Row Name 04/09/20 1021 Calculation Measurements Weight Used For Calculations 138 kg (304 lb 3.8 oz) Height 166.4 cm (65.51 ) Estimated/Assessed Needs Additional Documentation [place]-St. Jeor Equation (Group) [place]-St. Jeor Equation RMR ([place]-St. Jeor Equation) 5074.003 [place]. Jeor Activity Factors 1.2 Activity Factors ([place]-St. Jeor) 1474.8088 Problem/Interventions: Problem 1 Row Name 04/09/20 1032 Nutrition Diagnoses Problem 1 Problem 1 Altered GI Function Etiology (related to) Medical Diagnosis Gastrointestinal Esophagitis;Other (comment) Signs/Symptoms (evidenced by) Report/Observation Reported/Observed By Problem 2 Row Name 04/09/20 1047 Nutrition Diagnoses Problem 2 Problem 2 Overweight/Obesity Etiology (related to) Other (comment) lifestyle Signs/Symptoms (evidenced by) BMI BMI Greater than 40 Intervention Goal Row Name 04/09/20 1051 Intervention Goal General Provide information regarding MNT for treatment/condition;Reduce/improve symptoms PO Meet estimated needs Weight Appropriate weight loss Nutrition Prescription Row Name 04/09/20 1054 Nutrition Prescription PO PO Prescription Begin/change diet Begin/Change Diet to Regular Fluid Consistency Thin Common Modifiers Other (comment) 6 food elimination New PO Prescription Ordered? No, recommended 04/20/20 Education/Evaluation Row Name 04/09/20 1102 Education Education Provided education regarding;Education topics;Advised regarding habits/behavior Provided education regarding Avoidance/improvement of symptoms;Diet rationale;Medical diagnosis;Keyfood habit change Education Topics GI disease Monitor/Evaluation Monitor Per protocol Education Follow-up Other (comment) 04/20/20 Electronically signed by: Lin Agarwal RD 04/09/20 11:03 EST documented in this encounter Plan of Treatment Not on file documented as of this encounter Visit Diagnoses Not on filedocumented in this encounter Care Teams Applications Manager Relationship Specialty Start Date End Date Joyce Shaw APRN [address] [place] [address] PCP - General Nurse Practitioner 02/03/20 09/03/20 documented as of this encounter
--- OUTSIDE RECORDS SUMMARY | 2024-01-11 19:01 | XMS_ITS | Encounter Summary ---
[facility] Address [address] [place] [address] Care Team Providers Care Pharmacy Benefits Coordinator Name Role Phone Joyce Shaw COLLEGE FOOTBALL COACH Primary Care Provider [phone] Reason for Visit * Reason Comments Eoe f/u Encounter Details Date Type Department Care Team (Late st Contact Info) Description 05/12/2020 12:30 PM EDT Office Visit [facility] [address] [facility] [address] [place] [address] Jacky Damon, COLLEGE FOOTBALL COACH [address] [place] [address] Esophagitis, eosinophilic (Primary Dx); Gastroparesis; Class 3 severe obesity due to excess calories without serious comorbidity with body mass index (BMI) of 50.0 to 59.9 in adult 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 Tobacco Use Types Packs/Day Years [...] Sign Reading Time Taken Comments Blood Pressure 163/93 05/12/2020 12:24 PM EDT Pulse 93 05/12/2020 12:24 PM EDT Temperature 36.7 ??C (98.1 ??F) 05/12/2020 12:24 PM E DT Respiratory Rate - - Oxygen Saturation - - Inhaled Oxygen Concentration - - Weight 145 kg (320 lb 6.4 oz) 05/12/2020 12:24 P M EDT Height 166.4 cm (5' 5.51 ) 05/12/2020 12:24 PM E DT Body Mass Index 52.49 05/12/2020 12:24 PM EDT documented in this encounter Progress Notes * Jacky Damon APRN - 05/12/2020 12:30 PM EDT GASTROENTEROLOGY OFFICE NOTE Ivon Erwin [id number] 1990 CARE TEAM Patient Care Team: Joyce Shaw APRN as PCP - General (Nurse Practitioner) Referring Provider: Joyce Shaw APRN Chief Complaint Patient presents with ??? Eoe f/u HISTORY OF PRESENT ILLNESS: Patient returns in follow-up status post EGD to assess for resolution of eosinophilic esophagitis. Longitudinal furrows and circumferential rings were noted in the esophagus however, less than 5 eosinophils were noted per high- powered field on biopsy. She has been taking budesonide for several months now but has not maintained twice daily PPI therapy. She had a complaint of dysphagia and the esophagus was dilated with a [id number] balloon to 54 Filipino at the time of EGD. She reports thatshe is swallowing much better, having no current problems. Bile and a small amount of retained foodwas noted in the body of her stomach suggestive of poor emptying. She reports that she has been feeling very bad lately. Her stomach hurts all of the time. She admits that she has been eating anything and everything that I want she was down to 297 pounds that shesays she has not seen that number in a very long time but she today is back up to 320. PAST MEDICAL HISTORY Past Medical History: Diagnosis Date ??? Anxiety ??? Depression ??? Diabetes mellitus (CMS/HCC) diagnosed -2019, checks fsbg daily ??? Endometriosis ??? Eosinophilic [...] MD; Location: [facility]; Service: Gastroenterology;; ??? HYSTERECTOMY Partial ??? TONSILLECTOMY ??? TUBAL ABDOMINAL LIGATION MEDICATIONS: Current Outpatient Medications: ??? Cariprazine HCl (Vraylar) 3 MG capsule capsule, Take 1 capsule by mouth Daily., Disp: , Rfl: ??? amitriptyline (ELAVIL) 25 MG tablet, Take [...] daily), Disp: 60 each, Rfl: 1 ??? budesonide (PULMICORT) 0.5 MG/2ML nebulizer solution, Take 1 ampule by nebulization 2 (two) times a day., Disp: , Rfl: ??? escitalopram (LEXAPRO) 20 MG tablet, Take 20 mg by mouth Daily., Disp: , Rfl: ??? metFORMIN (GLUCOPHAGE) 500 MG tablet, TAKE 1 TABLET BY MOUTH TWICE DAILY WITH MEALS, Disp: 60 tablet, Rfl: 0 ??? valACYclovir (VALTREX) 1000 MG [...] and voice change. Gastrointestinal: Positive for abdominal pain. Negative for abdominal distention, anal bleeding, blood in stool, constipation, diarrhea, nausea, rectal pain, vomiting, GERD and indigestion. PHYSICAL EXAM BP 163/93 (BP Location: Right arm, Patient Position: Sitting, Cuff Size: Adult) Pulse 93 Temp 98.1 ??F (36.7 ??C) (Temporal) Ht 166.4 cm (65.51 ) Wt (!) 145 kg (320 lb 6.4 oz) BMI 52.49 kg/m?? Physical Exam Vitals and nursing note [...] There is no mass. Tenderness: There is generalized abdominal tenderness. There is no guarding or rebound. Hernia: No hernia is present. Musculoskeletal: General: Normal range of motion. Cervical back: Normal range of motion and neck supple. Skin: General: Skin is warm and dry. Neurological: Mental Status: She is alert and oriented to person, place, and time. Cranial Nerves: No cranial nerve deficit. Psychiatric: Behavior: Behavior normal. Judgment: Judgment normal. Results Review: I have reviewed the patient's new clinical results. EGD findings (04/07/2020): -Longitudinal referrals and circumferential rings in the esophagus. -EG junction dilated with a TTS balloon of size 45-54 Filipino. 15 mm -Small sliding hiatal hernia -Bile and small amount of food retained in body of stomach -Mild gastritis Tissue Pathology Exam: [id number] Order: [id number] Status: Final result Visible to patient: Yes (Bebet) Next appt: 11/10/2020 at 01:00 PM in Gastroenterology (Jacky Damon, TERESA) Dx: Dysphagia, unspecified Specimen Information: Esophagus; Tissue ?? Component Case Report Surgical Pathology Report ? Case: [id number] ? Authorizing Provider: ??Aristides Mai MD ?? Collected: ? 04/07/2020 10:14 AM ? Ordering Location: ? [facility] ?? Received: ?04/08/2020 08:37 AM? LABORATORY ? Pathologist: ? Trae Blackmon MD ? Specimen: ?Esophagus ? Clinical Information Esophageal dysphagia, nausea with vomiting, eosinophilic esophagitis, gastritis, hiatal hernia, some retained debris suggesting poor emptying. Final Diagnosis ESOPHAGUS BIOPSY: Squamous mucosa with basal layer hyperplasia, hyperkeratosis, and occasional intraepithelial eosinophils (<5/HPF) (see Comment). Negative for intestinal metaplasia, dysplasia, and glandular mucosa. [facility] at 1004 ASSESSMENT / PLAN 1. Eosinophilic esophagitis Pathology indicates resolved, grossly though longitudinal furrows and circumferential rings are still noted in the esophagus -Discontinue budesonide -Continue omeprazole 40 mg twice daily 2. Gastroparesis -Gastroparesis nutrition therapy discussed with patient: -Eat small, frequent meals. -Avoid foods that are high in fat. -Do not eat foods high in fiber or take fiber supplements or fiber bulking agents. -Do not eat foods that increase acid reflux such as acidic, spicy, fried or greasy foods. -Do not drink alcohol or smoke. -Do not drink carbonated beverages, as they increase bloating. -If symptoms are severe, semisolid foods or liquids may need to be your main food sources. Choose liquid nutritional supplements that have less than or equal to 2 g of fiber per serving. -Sit upright while eating and sit upright or walk after meals. -Do not lie down for 3 to 4 hours after eating to avoid reflux or regurgitation. -Food list of foods recommended and not recommended provided to patient 3. Obesity Patient's (Body mass index is 52.49 kg/m??.) indicates that they are morbidly obese (BMI > 40 or> 35 with obesity - related health condition) with obesity- related health conditions that include diabetes mellitus, GERD and Gastroparesis . Obesity is worsening. BMI is is above average; BMI management plan is completed. We discussed low calorie, low carb based diet program, portion control and increasing exercise. Return in about 6 months (around 11/12/2020). I discussed the patients findings and my recommendations with patient Jacky Damon APRN documented in this encounter Plan of Treatment Not on file documented as of this encounter Visit Diagnoses Diagnosis Esophagitis, eosinophilic- Primary Eosinophilic esophagitis Gastroparesis Class 3 severe obesity due to excess calories without serious comorbidity with body mass index (BMI) of 50.0 to 59.9 in adult documented in this encounter Care Teams Pharmacy Benefits Coordinator Relationship Specialty Start Date End Date Joyce Shaw APRN [address] [place] [address] PCP - General Nurse Practitioner 02/03/20 09/03/20 documented as of this encounter
--- OUTSIDE RECORDS SUMMARY | 2024-01-11 19:01 | XMS_ITS | Encounter Summary ---
Author Organization [facility] Address [address] [place] [id number] Care Team Providers Care Marine Firer Name Role Phone Joyce Shaw APRN Primary Care Provider [phone] Reason for Visit * Reason Comments Med Refill Encounter Details Date Type Department Care Team (Late st Contact Info) Description 03/23/2020 Refill [facility] [address] [place] [id number] Radha Chau DO [address] [place] [address] HSV (herpes simplex virus) infection 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 Tobacco Use Types Packs/Day Years [...] as of this encounter Visit Diagnoses Diagnosis HSV (herpes simplex virus) infection Herpes simplex without mention of complication documented in this encounter Care Teams Marine Firer Relationship Specialty Start Date End Date Joyce Shaw APRN [address] [place] [address] PCP - General Nurse Practitioner 02/03/20 09/03/20 documented as of this encounter
--- OUTSIDE RECORDS SUMMARY | 2024-01-11 19:01 | XMS_ITS | Encounter Summary ---
Author Organization [facility] Address [address] [place] [address] Care Team Providers Care Sr. Manager Marketing Name Role Phone Hermila Orlando APRN Primary Care Provider [phone] Reason for Visit * Reason Comments Cough MILLS, has had exposure to Covid-19 Encounter Details Date Type Department Care Team (Latest Contact Info) Description 03/22/2021 5:40 PM EST - 03/22/2021 5:58 PM EST Hospital Encounter [facility] [address] [facility] [address] [place] [address] Kerri Sage PA-C Exposure to COVID-19 virus (Primary Dx) Discharge Disposition: Home or Self Care Social [...] Sign Reading Time Taken Comments Blood Pressure 145/84 03/22/2021 5:43 PM EST Pulse 98 03/22/2021 5:43 PM EST Temperature 36.7 ??C (98.1 ??F) 03/22/2021 5:43 PM ES T Respiratory Rate 16 03/22/2021 5:43 PM EST Oxygen Saturation 94% 03/22/2021 5:43 PM EST Inhaled Oxygen Concentration - - Weight - - Height - - Body Mass Index - - documented in this encounter Discharge Instructions * Discharge Instructions* Kerri Sage PA-C - 03/22/2021 5:52 PM EST Images from the original note were not included. 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 Test results typically take 1-2 days to return.The easiest way to get your test results isto sign up for My Chart . (Instructions for signing up are included on your after visit summary.) Patient will also need to follow CDC guidelines and work in conjunction with their human resources department, employee health department or school system. * Attachments The following attachments cannot be sent through Care Everywhere. * Airborne Precautions Wujx-tm-Iutr (Namibian) documented in this encounter Medications at Time of Discharge ondansetron ODT (ZOFRAN-ODT) 4 MG disintegrating tabletIndications:Ex posure to COVID-[address] 1 tablet on the tongue Every 6 (Six) Hours As Needed for Nausea or Vomiting. 10 tablet 03/22/2021 budesonide (Pulmicort) 0.25 MG/2ML nebulizer solution Mix 2 vials in 5 pkts Splenda and swallow twice daily 60 each 1 01/08/2020 2 sucralfate (CARAFATE) 1 g tablet Take 1 g by mouth 4 (Four) Times a Day. 3 valACYclovir (VALTREX) 1000 MG tabletIndications:HS V (herpes simplex virus) infection Take 1 tablet by mouth once daily 90 tablet 03/23/2020 3 documented as of this encounter ED Notes * Kerri Sage PA-C - 03/22/2021 5:44 PM EST Ivon Erwin is a 30 y.o. female with Chief Complaint Patient presents with ??? Cough MILLS, has had exposure to Covid-19 BP 145/84 (BP Location: Left arm, Patient Position: Sitting) Pulse 98 Temp 98.1 ??F (36.7 ??C) (Temporal) Resp 16 SpO2 94% History provided by: Patient Illness Severity: Mild Onset quality: Sudden Duration: 2 days Timing: Constant Progression: Worsening Chronicity: New Context: Covid exposure - headache, cough - and will cough so hard she vomits Relieved by: Nothing Worsened by: Nothing Ineffective treatments: None tried Associated symptoms: congestion, cough and headaches Allergies Allergen Reactions ??? Augmentin [Amoxicillin-Pot Clavulanate] Anaphylaxis Hives, swollen lips. ??? Bee Venom Anaphylaxis Past Medical History: Diagnosis Date ??? Anxiety ??? Depression ??? Diabetes mellitus (HCC) diagnosed , checks fsbg daily ??? Endometriosis ??? Eosinophilic esophagitis ??? Fibroid tumor ??? GERD (gastroesophageal reflux disease) ??? Hiatal hernia ??? History of appendectomy 07/12/2019 [facility] ??? Hypertension borderline, no meds prescribed ??? Migraine ??? Ovarian cyst ??? Pneumonia ??? PONV (postoperative nausea and vomiting) ??? Wears glasses No LMP recorded. Patient has had a hysterectomy. Past Surgical History: Procedure Laterality Date ??? SECTION ??? CHOLECYSTECTOMY ??? COLONOSCOPY N/A 06/13/2019 Procedure: COLONOSCOPY; Surgeon: Virgil Wallace MD; Location: [facility]; Service: Gastroenterology; Laterality: N/A; ??? COLONOSCOPY [...] Partial ??? TONSILLECTOMY ??? TUBAL ABDOMINAL LIGATION 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 Socioeconomic History ??? Marital status: Single Tobacco Use ??? Smoking status: Never Smoker ??? Smokeless tobacco: Never Used Vaping Use ??? Vaping Use: Never used Substance and Sexual Activity ??? Alcohol use: No ??? Drug use: No ??? Sexual activity: Defer Ivon Erwin reports that she has never smoked. She has never used smokeless tobacco. Current tobacco users are offered counseling on tobacco cessation and encouraged to discuss optionswith their primary care provider Review of Systems HENT: Positive for congestion. Respiratory: Positive for cough. Skin: Negative. Neurological: Positive for headaches. Physical Exam Vitals and nursing note reviewed. Constitutional: Appearance: Normal appearance. HENT: Head: Normocephalic and atraumatic. Eyes: Extraocular Movements: Extraocular movements intact. Pupils: Pupils are equal, round, and reactive to light. Pulmonary: Effort: Pulmonary effort is normal. Musculoskeletal: General: Normal range of motion. Skin: General: Skin is warm and dry. Neurological: General: No focal deficit present. Mental Status: She is alert and oriented to person, place, and time. Psychiatric: Mood and Affect: Mood normal. Behavior: Behavior normal. Thought Content: Thought content normal. Judgment: Judgment normal. No orders to display Labs Reviewed COVID-19 PCR, [facility], IMPROVEMENT COORDINATOR SWAB IN [facility] VIRAL TRANSPORT MEDIA/ORAL SWISH 24- 30 HR TAT Problems Addressed this Visit None Visit Diagnoses Exposure to COVID-19 virus - Primary Relevant Medications ondansetron ODT (ZOFRAN-ODT) 4 MG disintegrating tablet Other Relevant Orders COVID-19 PCR, [facility], IMPROVEMENT COORDINATOR SWAB IN [facility] VIRAL TRANSPORT MEDIA/ORAL SWISH 24- 30 HR TAT - Swab, Nasopharynx Diagnoses Codes Comments Exposure to COVID-19 virus - Primary ICD-10-CM: Z20.822 ICD-9-CM: V01.79 Procedures Medications - No data to display Medication List START taking these medications ondansetron ODT 4 MG disintegrating tablet Commonly known as: ZOFRAN-ODT Place 1 tablet on the tongue Every 6 (Six) Hours As Needed for Nausea or Vomiting. CHANGE how you take these medications budesonide 0.25 MG/2ML nebulizer solution Commonly known as: Pulmicort Mix 2 vials in 5 pkts Splenda and swallow twice daily What changed: ?? how much to take ?? when to take this CONTINUE taking these medications sucralfate 1 g tablet Commonly known as: CARAFATE valACYclovir 1000 MG tablet Commonly known as: VALTREX Take 1 tablet by mouth once daily STOP taking these medications amLODIPine 5 MG tablet Commonly known as: NORVASC metFORMIN 500 MG tablet Commonly known as: GLUCOPHAGE PROPRANOLOL HCL PO Vraylar 4.5 MG capsule Generic drug: Cariprazine HCl Where to Get Your Medications These medications were sent to [facility] [address] [place] [address] - [address] [place] [address] - [phone] - [phone] [place] [address] ?? ondansetron ODT 4 MG disintegrating tablet Please follow up with your PMD in 2-3 days as needed or return to urgent care if needed sooner. If you feel you need immediate care - go to your closest emergency room. It will take 24-72 hours to get results. We ask that you go home and stay home until you get your results. You will be contacted with results. You can access results through iContact. Patient was informed that they needed to quarantine until covid testing results were back and they are notified. If test is negative and you are asymptomatic, you can go back to normal activities with no known exposure. If positive you need to quarantine for 10 days and the health department shouldcontact you. If you are having symptoms, you need to quarantine for 10 days from first day of symptoms.. If you have direct positive exposure - you should quaranting 14 days if you have not been vaccinated. If you are not fully vaccinated/had booster and have been in close contact with someone diagnosed with Covid - you should quarantine 10 days from last exposure. Quarantine may be shortened to 5 days if you have no symptoms and tst negative on day 5; wear a well fitting face mask for the 10 days from your last exposure. If you have tested positive for Covid and have never had symptoms - you can quarantine for 5 days. You should wear a will fitting mask for an additional 5 days; isolation should be extended to 10 days if a mask cannot be worn properly and consistently. If you have had your Covid immunizations and you have a positive exposure and are asymptomatic you do not have to quarantine. Wear a well fitting mask for 10 days from your last exposure. Get tested for Covid on day 5. Stay home and get a test if symptoms develop. Also, abide by what your health department and you place of employment terms for quarantine may be as it may be different. Please note that portions of this note were dictated utilizing [employer] dictation. Kerri Sage PA-C 03/22/21 1754 documented in this encounter Plan of Treatment Not on file documented as of this encounter Procedures Procedure Name Priority Date/Time Associated Diagnosis Comments ZZZCOVID-19 PCR, [facility], IMPROVEMENT COORDINATOR SWAB IN [facility] VIRAL TRANSPORT MEDIA/ORAL SWISH 24-30 HR TAT STAT 03/22/2021 5:53 PM EST Exposure to COVID-19 virus documented in this encounter Results * COVID-19 PCR, [facility], IMPROVEMENT COORDINATOR SWAB IN [facility] VIRAL TRANSPORT MEDIA/ORAL SWISH 24-30 HR TAT - Swab, Nasopharynx (03/22/2021 5:53 PM EST) SARS-CoV-2 SALOMÓN Not Detected Not Detected 03/23/2021 11:45 AM EST [facility] Swab Nasopharyngeal structure / Unknown Collection / Unknown 03/22/2021 5:53 PM EST 03/22/2021 5:53 PM EST us Kerri Sage PA-C MICROBIOLOGY - GENERA L ORDERABLES Final Result [facility] [address] [place] [address], documented in this encounter Visit Diagnoses Diagnosis Exposure to COVID-19 virus- Primary documented in this encounter Additional Health Concerns Infection Onset Date Last Indicated Resolved Time COVID (rule out) 03/22/2021 03/22/2021 03/29/2021 9:08 PM EST documented as of this encounter Care Teams Sr. Manager Marketing Relationship Specialty Start Date End Date Hermila Orlando APRN [address] [place] [address] PCP - General Nurse Practitioner 12/07/20 documented as of this encounter
--- OUTSIDE RECORDS SUMMARY | 2024-01-11 19:01 | XMS_ITS | Encounter Summary ---
Author Organization [facility] Address [address] [place] [id number] Care Team Providers Care Hostel Manager Name Role Phone Hermila Orlando APRN Primary Care Provider [phone] Encounter Details Date Type Department Care Team (Late st Contact Info) Description 04/14/2021 1:00 PM EST Outside Facility Service [facility] [address] [facility] [address] [place] [address] Aristides Mai MD [address] [facility] [address] [place] [address] 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 Tobacco Use Types Packs/Day Years [...] Priority Date/Time Associated Diagnosis Comments ENDOSCOPY, INT 04/14/2021 documented in this encounter Results * ENDOSCOPY, INT (04/14/2021) us Aristides Mai MD INTERFACE NEEDS Final Res ult documented in this encounter Visit Diagnoses Not on filedocumented in this encounter Care Teams Hostel Manager Relationship Specialty Start Date End Date Hermila Orlando APRN [address] [address] PCP - General Nurse Practitioner 12/07/20 documented as of this encounter
--- OUTSIDE RECORDS SUMMARY | 2024-01-11 19:01 | XMS_ITS | Encounter Summary ---
Author Organization [facility] Address [address] [place] [address] Care Team Providers Care Winch Truck Operator Name Role Phone Shaw, Joyce TERESA Primary Care Provider [phone] Reason for Visit * Reason Onset Date Comments PA INFO FOR EGD, DOS 1216.02/17/2020 Encounter Details Date Type Department Care Team (Late st Contact Info) Description 02/17/2020 Prior Authorization [facility] [address] [facility] [address] [place] [id number] Aristides Mai MD [address] [facility] [address] [place], [place] [id number] PA INFO FOR EGD, DOS 02.05.20 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 Tobacco Use Types Packs/Day Years [...] encounter Miscellaneous Notes * Telephone Encounter - Opal Hernandez - 02/17/2020 4:19 PM EST PER [facility] FAX AUTH # [id number] [place] FROM 02/05/20-04/05/20 [place] [id number] [place] [id number]. documented in this encounter Plan of Treatment Not on file documented as of this encounter Visit Diagnoses Not on filedocumented in this encounter Care Teams Winch Truck Operator Relationship Specialty Start Date End Date Joyce Shaw APRN [address] [place] [address] PCP - General Nurse Practitioner 02/03/20 09/03/20 documented as of this encounter
--- OUTSIDE RECORDS SUMMARY | 2024-01-11 19:01 | XMS_ITS | Encounter Summary ---
Author Organization [facility] Address [address] [place] [address] Care Team Providers Care Ultrasound Applications Specialist Name Role Phone Hermila Orlando TERESA Primary Care Provider Reason for Visit * Auth/Cert Specialty Diagnoses / Procedures Referred By Mikayla t Referred To Contact Diagnoses Dysphagia, unspecified Procedures AR ESOPHAGOGASTRODUODENOSCOPY TRANSORAL DIAGNOSTIC ESOPHAGOGASTRODUODENOSCOPY Referral ID Status Reason Start Date Expiration Date Visits Re quested Visits Authorized [id number] 1 1 Encounter Details Date Type Department Care Team (Late st Contact Info) Description 09/04/2020 2:23 PM EDT - 09/04/2020 2:53 PM EDT Surgery [facility] [address] [place] [address] Aristides Mai MD [address] [address] ESOPHAGOGASTRODUODENOSCOPY [67270 (CPT??)] 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 Tobacco Use Types Packs/Day [...] Sign Reading Time Taken Comments Blood Pressure 146/99 09/04/2020 2:24 PM EDT Pulse 88 09/04/2020 2:24 PM EDT Temperature 36.3 ??C (97.3 ??F) 09/04/2020 1:58 PM ED T Respiratory Rate 18 09/04/2020 2:24 PM EDT Oxygen Saturation 98% 09/04/2020 1:58 PM EDT Inhaled Oxygen Concentration - - Weight 147 kg (324 lb 3.2 oz) 09/04/2020 1:58 PM EDT Height 167.6 cm (5' 6 ) 09/04/2020 1:58 PM EDT Body Mass Index 52.33 09/04/2020 1:58 PM EDT documented in this encounter Discharge Instructions * Attachments The following attachments cannot be sent through Care Everywhere. * Upper Endoscopy Adult Care After (Citizen Of [place]) * General Anesthesia Adult Care After (Citizen Of [place]) * Sucralfate oral suspension ([place]izen [place]) documented in this encounter Medications at Time [...] on 04/07/2020. She was dilated to 54 Urdu. She says she does better for about [...] Take 5 mg by mouth Daily. Yes ProviderPreston MD budesonide (Pulmicort) 0.25 MG/2ML nebulizer solution Mix 2 vials in 5 pkts Splenda and swallow twice daily Patient taking differently: 0.25 mg 2 (two) times a day. Mix 2 vials in 5 pkts Splenda and swallow twice daily 01/08/20 Yes Jacky Damon APRN budesonide (PULMICORT) 0.5 MG/2ML nebulizer solution Take 1 ampule by nebulization 2 (two) times a day. 03/31/20 Yes ProviderPreston MD Cariprazine HCl (Vraylar) 3 MG capsule capsule Take 1 capsule by mouth Daily. 03/19/20 Yes Provider,MD Preston escitalopram (LEXAPRO) 20 MG [...] Fibroid tumor ??? [facility] ??? Hypertension borderline, no meds prescribed ??? [...] Procedure: ESOPHAGOGASTRODUODENOSCOPY; Surgeon: Aristides Mai MD; Location: [facility]; Service: Gastroenterology;; ??? HYSTERECTOMY Partial ??? [...] Component Value Units Date/Time POC Glucose Once [[id number]] (Abnormal) Collected: 09/04/20 1403 Specimen: Blood Updated: 09/04/20 1404 Glucose 131 mg/dL Comment: Meter: [id number] Housing Management Officer: [id number] Paulina Almazan RADIOLOGY: Imaging Results (Last 24 [...] has been dilated in March to 54 Urdu. Procedure: After the patient was informed of [...] Routine 09/04/2020 2:51 PM EDT Eosinophilic esophagitis AR ESOPHAGOGASTRODUODENOSCOP Y TRANSORAL DIAGNOSTIC 09/04/2020 2:38 PM EDT ECG 12-LEAD Routine 09/04/2020 2:09 PM EDT POCT GLUCOSE FINGERSTICK Routine 021 2:03 PM EDT ENDOSCOPY, INT 09/04/2020 documented in this encounter Results * (ABNORMAL) POC Glucose Once (09/04/2020 3:49 PM EDT) Glucose 143(H) 70 - 130 mg/dL 09/04/2020 3:59 PM EDT [facility] Comment:Meter: [id number] Op erator: [id number] Rafatstefano Almazan Blood 09/04/2020 3:49 PM EDT 09/04/2020 3:59 PM EDT Aristides Mai MD POINT OF CARE TEST ORDERA BLES Final Result [facility]
[address] [place] [address], * Tissue Pathology Exam (09/04/2020 2:51 PM EDT) Case Report Surgical Pathology Report ? Case: [id number] ? Authorizing Provider: ??Aristides Mai MD ?? Collected: ? 09/04/2020 02:51 PM ? Ordering Location: ? [facility] ?? Received: ?09/07/2020 07:37 AM ? ENDO SUITES ? Pathologist: ? Jey Bowman MD ? Specimen: ?Esophagus, Esophagus bx for path ? 09/08/2020 1:53 PM T [facility] Clinical Information Eosinophilic esophagitis. 09/08/2020 1:53 PM [facility] Final Diagnosis ESOPHAGUS, BIOPSY: Squamocolumnar mucosa [...] is extremely minute, and may not be insurance claim representative of the esophagus as a whole. 09/08/2020 1:53 PM [facility] Gross Description Specimen 1 is received in formalin labeled esophagus biopsy and consists of a 0.3 x 0.2 x 0.1 cm fragment of amaya soft tissue submitted entirely in 1A. CLB 09/08/2020 1:53 PM EDT [facility] Microscopic Description The slides are reviewed and demonstrate histopathologic features supporting the above rendered diagnosis. 09/08/2020 1:53 PM EDT [facility] Tissue Specimen from esophagus / Unknown 09/04/2020 2:51 PM EDT 09/07/2020 7:37 AM EDT us Aristides Mai MD PATHOLOGY/CYTOLOGY ORDERA BLES Final Result [facility]
[address] [place] [address], * ECG 12 Lead (09/04/2020 2:09 PM [...] MD Procedure Note Calixto Connelly MD - 09/04/2020 Test Reason : pre procedure Blood Pressure [...] Jr., MD ECG ORDERABLES Final R esult Performing Organization Address City/[facility] Co de Phone Number ECG * (ABNORMAL) POC Glucose Once (09/04/2020 2:03 PM EDT) Glucose 131(H) 70 - 130 mg/dL 09/04/2020 2:04 PM EDT [facility] Comment:Meter: [id number] Op erator: [id number] Paulina Almazan Blood 09/04/2020 2:03 PM EDT 09/04/2020 2:04 PM EDT Aristides Mai MD POINT OF CARE TEST ORDERA BLES Final Result Performing Organization Address [facility] Co de Phone Number [facility]
[address] [place] [address], * ENDOSCOPY, INT (09/04/2020) us Aristides Mai MD INTERFACE NEEDS Final [...] ineffective. documented in this encounter Care Teams Ultrasound Applications Specialist Relationship Specialty Start Date End Date Hermila Orlando APRN [address] [place] [address] PCP - General Nurse Practitioner 09/04/20 12/06/20 documented as of this encounter
--- OUTSIDE RECORDS SUMMARY | 2024-01-11 19:01 | XMS_ITS | Encounter Summary ---
Author Organization [facility] Address [address] [place] [address] Care Team Providers Care Putty Tinter Maker Name Role Phone Hermila Orlando TERESA Primary Care Provider [phone] Reason for Visit * Reason Comments Exposure To Known Illness vomiting, fati marla, headache, dizziness, cough, low grade fever, pain with breathing started a week ago. Exposed to Covid Encounter Details Date Type Department Care Team (Latest Contact Info) Description 03/24/2021 4:06 PM EST - 03/24/2021 4:56 PM EST Hospital Encounter [facility] [address] [facility] [address] [place] [address] Payal Valladares APRN [address] [place] [address] Viral URI with cough (Primary Dx); Non-intractable vomiting with nausea, unspecified vomiting type; Acute diarrhea Discharge Disposition: Home or Self Care Social [...] Sign Reading Time Taken Comments Blood Pressure 130/86 03/24/2021 4:15 PM EST Pulse 94 03/24/2021 4:15 PM EST Temperature 36.2 ??C (97.1 ??F) 03/24/2021 4:15 PM ES T Respiratory Rate 18 03/24/2021 4:15 PM EST Oxygen Saturation 97% 03/24/2021 4:15 PM EST Inhaled Oxygen Concentration - - Weight 132 kg (290 lb) 03/24/2021 4:15 PM EST Height 165.1 cm (5' 5 ) 03/24/2021 4:15 PM EST Body Mass Index 48.26 03/24/2021 4:15 PM EST documented in this encounter Discharge Instructions * Discharge Instructions* Payal Valladares APRN - 03/24/2021 4:51 PM EST Take all medications as directed. Increase fluid intake. Practice hand hygiene. F/U with PCP if symptoms fail to improve * Attachments The following attachments cannot be sent through Care Everywhere. * Upper Respiratory Infection Adult Vwiu-tq-Bqhq ([place] Citizen) documented in this encounter Medications at Time of Discharge ondansetron ODT (ZOFRAN-ODT) 4 MG disintegrating tabletIndications:Ex posure to COVID-[address] 1 tablet on the tongue Every 6 (Six) Hours As Needed for Nausea or Vomiting. 10 tablet 03/22/2021 promethazine-dextrom ethorphan (PROMETHAZINE-DM) 6.25-15 MG/5ML syrupIndications:Vir al URI with cough Take 5 mL by mouth 4 (Four) Times a Day As Needed for Cough for up to 7 days. 118 mL 03/24/2021 2 budesonide (Pulmicort) 0.25 MG/2ML nebulizer solution [...] as of this encounter ED Notes * Payal Valladares CIRCULAR GANG SAW OPERATOR - 03/24/2021 4:32 PM EST Subjective History provided by: Patient URI Presenting symptoms: congestion, cough, fatigue, rhinorrhea and sore throat Presenting symptoms: no fever Congestion: Location: Nasal Interferes with sleep: no Interferes with eating/drinking: no Cough: Cough characteristics: Dry and non-productive Severity: Mild Onset quality: Sudden Timing: Constant Progression: Worsening Chronicity: New Severity: Mild Onset quality: Sudden Associated symptoms: headaches Associated symptoms: no wheezing Review of Systems Constitutional: Positive for appetite change and fatigue. Negative for chills, diaphoresis and fever. HENT: Positive for congestion, postnasal drip, rhinorrhea and sore throat. Respiratory: Positive for cough. Negative for chest tightness, shortness of breath and wheezing. Gastrointestinal: Positive for diarrhea, nausea and vomiting. Negative for abdominal pain. Neurological: Positive for headaches. Hematological: Positive for adenopathy. All other systems reviewed and are negative. Past Medical History: Diagnosis Date ??? Anxiety ??? Depression ??? Diabetes mellitus (HCC) diagnosed , checks fsbg daily ??? Endometriosis ??? Eosinophilic esophagitis ??? Fibroid tumor ??? GERD (gastroesophageal reflux disease) ??? Hiatal hernia ??? [facility] of [facility] ??? Hypertension borderline, no meds prescribed ??? Migraine ??? Ovarian cyst ??? Pneumonia ??? PONV (postoperative nausea and vomiting) ??? Wears glasses Allergies Allergen Reactions ??? Augmentin [Amoxicillin-Pot Clavulanate] Anaphylaxis Hives, swollen lips. ??? Bee Venom Anaphylaxis Past Surgical History: Procedure Laterality Date ??? [...] Paternal Grandfather ??? Colon polyps Paternal Grandfather 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 Socioeconomic History ??? Marital status: Single Tobacco Use ??? Smoking status: Never Smoker ??? Smokeless tobacco: Never Used Vaping Use ??? Vaping Use: Never used Substance and Sexual Activity ??? Alcohol use: No ??? Drug use: No ??? Sexual activity: Defer Objective BP 130/86 (BP Location: Right arm, Patient Position: Sitting) Pulse 94 Temp 97.1 ??F (36.2 ??C)(Tympanic) Resp 18 Ht 165.1 cm (65 ) Wt 132 kg (290 lb) SpO2 97% BMI 48.26 kg/m?? Physical Exam Vitals and nursing note reviewed. Constitutional: Appearance: She is well-developed. HENT: Head: Normocephalic. Right Ear: Tympanic membrane and ear canal normal. Left Ear: Tympanic membrane and ear canal normal. Nose: Mucosal edema and rhinorrhea present. Right Sinus: Maxillary sinus tenderness and frontal sinus tenderness present. Left Sinus: Maxillary sinus tenderness and frontal sinus tenderness present. Mouth/Throat: Pharynx: Uvula midline. Posterior oropharyngeal erythema present. Tonsils: No tonsillar exudate. Cardiovascular: Rate and Rhythm: Normal rate and regular rhythm. Pulmonary: Effort: Pulmonary effort is normal. Breath sounds: Normal breath sounds. Lymphadenopathy: Cervical: Cervical adenopathy present. Skin: Findings: No rash. Procedures ED Course Results for orders placed or performed during the hospital encounter of 03/24/21 POCT Influenza A/B Specimen: Swab Result Value Ref Range Rapid Influenza A Ag Negative Negative Rapid Influenza B Ag Negative Negative Internal Control Passed Passed Lot Number [id number] Expiration Date 07/01/2022 MDM Final diagnoses: Viral URI with cough Non-intractable vomiting with nausea, unspecified vomiting type Acute diarrhea Payal Valladares APRN 03/24/21 1715 documented in this encounter Plan of Treatment Not on file documented as of this encounter Procedures Procedure Name Priority Date/Time Associated Diagnosis Comments POCT INFLUENZA A/B STAT 03/24/2021 4: 52 PM EST documented in this encounter Results * POCT Influenza A/B (03/24/2021 4:52 PM EST) Rapid Influenza A Ag Negative Negative [facility] Rapid Influenza B Ag Negative Negative [facility] Internal Control Passed Passed [facility] Lot Number [id number] [facility] Expiration Date 07/01/2022 [facility] Swab 03/24/2021 4:52 PM EST Payal Valladares APRN POINT OF CARE TEST ORDERA BLES Final Result [facility]
[address] [place] [address], documented in this encounter Visit Diagnoses Diagnosis Viral URI with cough- Primary Non-intractable vomiting with nausea, unspecified vomiting type Acute diarrhea Diarrhea documented in this encounter Additional Health Concerns Infection Onset Date Last Indicated Resolved Time COVID (rule out) 03/22/2021 03/22/202103/2903/29/2021 9:08 PM EST documented as of this encounter Care Teams Putty Tinter Maker Relationship Specialty Start Date End Date Hermila Orlando APRN [address] [place] [address] PCP - General Nurse Practitioner 12/07/20 documented as of this encounter
--- OUTSIDE RECORDS SUMMARY | 2024-01-11 19:02 | XMS_ITS | Encounter Summary ---
Author Organization [facility] Address [address] [place] [address] Care Team Providers Care Superintendent Storage Area Name Role Phone Radha Chau Primary Care Provider [phone] Reason for Visit * Reason Onset Date Comments Abdominal Pain 06/25/2019 Encounter Details Date Type Department Care Team (Late st Contact Info) Description 06/25/2019 Telephone [facility] [address] [facility] [address] [place] [address] Sofia Sullivan MA Abdominal Pain 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 Tobacco Use Types Packs/Day Years [...] Telephone Encounter - Sofia Sullivan MA - 06/26/2019 2:55 PM EDT Referral faxed to Dr. Sahil Carvalho. They will call the patient and get her scheduled. * Telephone Encounter - Sofia Sullivan MA - 06/25/2019 11:52 AM EDT Patient is still having abdominal pain, and has seen gynecology with no answers. Per Jacky, will send for a surgical evaluation. Patient would prefer to see someone besides Dr. Rosa. documented in this encounter Plan of Treatment Not on file documented as of this encounter Visit Diagnoses Not on filedocumented in this encounter Care Teams Superintendent Storage Area Relationship Specialty Start Date End Date Radha Chau DO [address] [place] [address] PCP - General Family Medicine 07/30/18 02/02/20 documented as of this encounter
--- OUTSIDE RECORDS SUMMARY | 2024-01-11 19:02 | XMS_ITS | Encounter Summary ---
Author Organization [facility] Address [address] [place] [address] Care Team Providers Care Drafter Landscape Name Role Phone ShawJoyce barry TERESA Primary Care Provider [phone] Reason for Visit * Auth/Cert Specialty Diagnoses / Procedures Referred By Mikayla t Referred To Contact Diagnoses Screen for colon cancer Screen for colon cancer [Z12.11] Procedures [place] ESOPHAGOGASTRODUODENOSCOPY TRANSORAL DIAGNOSTIC [place] COLONOSCOPY FLX DX W/COLLJ SPEC WHEN PFRMD ESOPHAGOGASTRODUODENOSCOPY FOR EOE, COLONOSCOPY FOR FAMILY HX POLYPS Referral ID Status Reason Start Date Expiration Date Visits Re quested Visits Authorized [id number] 1 1 Encounter Details Date Type Department Care Team (Late st Contact Info) Description 02/05/2020 12:41 PM EST - 02/05/2020 3:35 PM [facility] Hospital Encounter [facility] [address] [place] [address] Aristides Mai MD [address] [facility] [address] [place] [address] Screen for colon cancer Discharge Disposition: Home or Self Care Social [...] Everywhere. * General Anesthesia Adult Care After (Bhutanese) * Duodenal Biopsy (Bhutanese) * Upper Endoscopy Adult Care After (Bhutanese) * Colonoscopy Adult Care After Vslk-wn-[id number] (Bhutanese) * Form - Excuse from Work School or Physical Activity (Bhutanese) documented in this encounter Medications at Time [...] Component Value Units Date/Time POC Glucose Once [[id number]] (Normal) Collected: 02/05/20 1336 Specimen: Blood Updated: [...] esophageal ring biopsied and dilated to 54 Yemeni. #3 biopsies taken to rule out celiac [...] polypectomy and biopsy Instrument: Adult video colonoscope (Cognuse). Medications: As per anesthesia Preop diagnosis: Family [...] 2:09 PM EST Screen for colon cancer AZ COLONOSCOPY FLX DX W/KADEEM J SPEC WHEN PFRMD 02/05/2020 1:42 PM EST Screen for colon cancer AZ ESOPHAGOGASTRODUODENOSCOP Y TRANSORAL DIAGNOSTIC 02/05/2020 1:42 PM EST Screen for colon cancer POCT GLUCOSE FINGERSTICK Routine 020 1:36 PM EST ENDOSCOPY, INT 02/05/2020 SCANNED - COLONOSCOPY 02/05/2020 documented in this encounter Results * POC Glucose Once (02/05/2020 2:39 PM EST) Glucose 114 70 - 130 mg/dL 02/05/2020 2:41 PM EST [facility] Blood 02/05/2020 2:39 PM EST 02/05/2020 2:41 PM EST Aristides Mai MD POINT OF CARE TEST ORDERA BLES Final Result [facility]
[address] [place] [address], * Tissue Pathology Exam (02/05/2020 2:09 PM EST) Case Report Surgical Pathology Report ? Case: [id number] ? Authorizing Provider: ??Aristides Mai MD ?? Collected: ? 02/05/2020 02:09 PM ? [facility] ? [facility] ?? Received: ?02/05/2020 03:04 PM ? ENDO [...] for ? pathology ? 02/06/2020 5:29 PM [facility] Clinical Information The working history is screening for colon cancer. 02/06/2020 5:29 PM [facility] Final Diagnosis 1. DUODENAL BIOPSY: [...] grade dysplasia identified. DGD/dlb 02/06/2020 5:29 PM [facility] Gross Description Specimen 1 received [...] cassette 6. HBM/dlb 02/06/2020 5:29 PM EST [facility] Microscopic Description Sections of the [...] dysplasia is absent. 02/06/2020 5:29 PM EST [facility] Tissue Structure of small intestine [...] Mai MD PATHOLOGY/CYTOLOGY ORDERA BLES Final Result [facility]
[address] [place] [address], * POC Glucose Once (02/05/2020 1:36 PM EST) Glucose 125 70 - 130 mg/dL 02/05/2020 1:37 PM EST [facility] Blood 02/05/2020 1:36 PM EST 02/05/2020 1:37 PM EST us Aristides Mai MD POINT OF CARE TEST ORDERA BLES Final Result Performing Organization Address City/[facility] Co de Phone Number [facility] [place] [address], * SCANNED - COLONOSCOPY (02/05/2020) us Aristides Mai MD CHART REVIEW TABS Magdalena l Result * ENDOSCOPY, INT (02/05/2020) us Aristides Mai MD INTERFACE NEEDS Final Res ult documented in this encounter Visit Diagnoses Diagnosis Screen for colon cancer- Primary Special screening for malignant neoplasms, colon documented [...] {BKC} documented in this encounter Care Teams Drafter Landscape Relationship Specialty Start Date End Date Joyce Shaw APRN [address] [place] [address] PCP - General Nurse Practitioner 02/03/20 09/03/20 documented as of this encounter
--- OUTSIDE RECORDS SUMMARY | 2024-01-11 19:02 | XMS_ITS | Encounter Summary ---
Author Organization [facility] Address [address] [place] [address] Care Team Providers Care Senior Web Applications Developer Name Role Phone Radha Chau Primary Care Provider [phone] Reason for Visit * Reason Comments Difficulty Swallowing Abdominal Pain Black or Bloody Stool Encounter Details Date Type Department Care Team (Late st Contact Info) Description 01/08/2020 10:00 AM EST Office Visit [facility] [address] [facility] [address] [place] [address] Jacky Damno, [employer] [address] [place] [address] Esophagitis, eosinophilic (Primary Dx); Gastroparesis; Diarrhea, unspecified type; Blood in stool 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 Tobacco Use Types Packs/Day Years [...] Sign Reading Time Taken Comments Blood Pressure 157/87 01/08/2020 10:15 AM EST Pulse 96 01/08/2020 10:15 AM EST Temperature 36.2 ??C (97.1 ??F) 01/08/2020 10:[address] Respiratory Rate - - Oxygen Saturation - - Inhaled Oxygen Concentration - - Weight 142 kg (313 lb 6.4 oz) 01/08/2020 10:15 A M EST Height 167.6 cm (5' 5.98 ) 01/08/2020 10:[address] Body Mass Index 50.61 01/08/2020 10:15 AM EST documented in this encounter Progress Notes * Jacky Damon, TERESA - 01/08/2020 10:00 AM EST GASTROENTEROLOGY OFFICE NOTE Ivon Erwin [id number] 1990 CARE TEAM Patient Care Team: Radha Chau, DO as PCP - General (Family Medicine) Referring Provider: Radha Chau, DO Chief Complaint Patient presents with ??? Difficulty Swallowing ??? Abdominal Pain ??? Black or Bloody Stool HISTORY OF PRESENT ILLNESS: Patient returns in follow-up with a history of eosinophilic esophagitis and gastroparesis. She was first noted to have EOE in May 2019 and treated with high-dose PPI. Follow-up EGD in July continued to show longitudinal furrows suggestive of EOE. Schatzki's ring was noted and dilated to 54 French[place] a TTS balloon. She had a large amount of retained food in the body of the stomach suggesting poor emptying. Esophageal biopsies confirmed EOE with moderate to severe eosinophilia numbering as many as 40 eosinophils in a single HPF. In follow-up, she was treated with budesonide orally twice daily but discontinued her PPI and follow-up EGD in October post treatment again showed longitudinal furrows and circumferential rings consistent with EOE. Schatzki's ring again noted and biopsied as well as dilated and again a large amount of retained food suggesting poor emptying was noted in her stomach. Esophageal biopsies were consistent with EOE with 82 eosinophils PHF. Today she reports having increased troubles with swallowing. After dilation she did very well for about 3 weeks. She complains of being sick, nauseated all the time. She feels a heaviness in her stomach and fullness. Additionally, she complains of diarrhea that began about a month and a half ago and is having bloody and mucus stools. She has pain intermittently across her lower abdomen. She has had a colonoscopy in May 2019 that was unremarkable and also in July 2018. She is very concerned about the blood and mucus in her stool as she has a significant family history of colon cancer in her father and more recently her mother was diagnosed with colon cancer. PAST MEDICAL HISTORY Past Medical History: Diagnosis Date ??? Anxiety ??? Depression ??? Endometriosis ??? Eosinophilic esophagitis ??? Fibroid tumor ??? History of appendectomy 07/12/2019 [facility] ??? Ovarian cyst PAST SURGICAL HISTORY Past Surgical History: Procedure [...] (Four) Hours As Needed for Shortness of Air., Disp: 8 g, Rfl: 0 ??? budesonide (Pulmicort) 0.25 MG/2ML nebulizer solution, Mix 2 vials in 5 pkts Splenda and swallow twice daily, Disp: 60 each, Rfl: 1 ??? escitalopram (LEXAPRO) 20 MG tablet, , Disp: , Rfl: ??? glucose blood test strip, Check glucose daily and prn, Disp: 100 each, Rfl: 5 ??? glucose monitor monitoring kit, Check glucose daily and prn, Disp: 1 each, Rfl: 0 ??? ibuprofen (ADVIL,MOTRIN) 800 MG tablet, Take 1 tablet by mouth Daily., Disp: , Rfl: ??? Lancets misc, Check glucose daily and prn, Disp: 100 each, Rfl: 5 ??? meclizine (ANTIVERT) 12.5 MG tablet, Take 12.5 mg by mouth Every 8 (Eight) Hours As Needed., Disp: , Rfl: ??? metFORMIN (Glucophage) 500 MG tablet, Take 1 tablet by mouth 2 (Two) Times a Day With Meals., Disp: 60 tablet, Rfl: 1 ??? metoclopramide (REGLAN) 10 MG tablet, Take 1 tablet by mouth 4 (Four) Times a Day., Disp: 336 tablet, Rfl: 0 ??? mirtazapine (REMERON) 30 MG tablet, Take 1 tablet by mouth Daily., Disp: , Rfl: ??? ondansetron (ZOFRAN) 4 MG tablet, Take 1 tablet by mouth As Needed., Disp: , Rfl: ??? pantoprazole (Protonix) 40 MG EC tablet, Take 1 tablet by mouth 2 (Two) Times a Day., Disp: 60 tablet, Rfl: 5 ??? valACYclovir (VALTREX) 1000 MG tablet, Take 1 tablet by mouth Daily., Disp: 90 tablet, Rfl: 1 ALLERGIES Allergies Allergen Reactions ??? Augmentin [Amoxicillin-Pot Clavulanate] Anaphylaxis Hives, swollen lips. FAMILY HISTORY: Family History Problem Relation Age [...] weight gain and unexpected weight loss. HENT: Positive for trouble swallowing. Negative for voice change. Gastrointestinal: Positive for abdominal pain, blood in stool, diarrhea, nausea and indigestion. Negative for abdominal distention, anal bleeding, constipation, rectal pain, vomiting and GERD. PHYSICAL EXAM BP 157/87 (BP Location: Right arm, Patient Position: Sitting, Cuff Size: Adult) Pulse 96 Temp 97.1 ??F (36.2 ??C) (Temporal) Ht 167.6 cm (65.98 ) Wt (!) 142 kg (313 lb 6.4 oz) BMI 50.61 kg/m?? Physical Exam Vitals signs and nursing note reviewed. Constitutional: Appearance: Normal appearance. She is well-developed. HENT: Head: Normocephalic and atraumatic. Nose: Nose normal. Mouth/Throat: Mouth: Mucous membranes are moist. Pharynx: Oropharynx is clear. Eyes: Pupils: Pupils are equal, round, and reactive to light. Neck: Musculoskeletal: Normal range of motion and neck supple. Cardiovascular: Rate and Rhythm: Normal rate and regular rhythm. Pulmonary: Effort: Pulmonary effort is normal. Breath sounds: Normal breath sounds. No wheezing or rales. Abdominal: General: Bowel sounds are normal. Palpations: Abdomen is soft. There is no mass. Tenderness: There is generalized abdominal tenderness. There is no guarding or rebound. Hernia: No hernia is present. Musculoskeletal: Normal range of motion. Skin: General: Skin is warm and dry. Neurological: Mental Status: She is alert and oriented to person, place, and time. Cranial Nerves: No cranial nerve deficit. Psychiatric: Behavior: Behavior normal. Judgment: Judgment normal. Results Review: I have reviewed the patient's new clinical results. Discussion: She has had therapeutic failure for treatment of EOE with both high-dose PPI as well as budesonide.She has not been quite compliant with treatment previously and on this occasion discontinued her PPI while on budesonide. This could attribute to failure to resolve EOE. However, given her significant gastroparesis one would wonder if this may be contributing to failure to resolve EOE. ASSESSMENT / PLAN 1. Eosinophilic esophagitis -Budesonide 0.25 rest feels-mix 2 vials with 5 packets of Splenda and swallow, use twice daily. No eating or drinking for 30 minutes after taking and rinse mouth with water 30 minutes after taking X 8 weeks -Pantoprazole 40 mg twice daily -EGD in 8 weeks 2. Gastroparesis -Reglan 10 mg 3 times daily, patient was advised of potential side effects of this medication and that this is another medication to be used long-term -Strict adherence to dietary modifications for gastroparesis Gastroparesis nutrition therapy discussed with patient: -Eat small, frequent meals. (List of foods recommended and not recommended for gastroparesis provided to patient) -Avoid foods that are high in fat. [...] after eating to avoid reflux or regurgitation. 3. Diarrhea 4. Blood in stool -Colonoscopy Return for Follow up after procedures. I discussed the patients findings and my recommendations with patient Jacky Hagen. TERESA Damon documented in this encounter Plan of Treatment Not on file documented as of this encounter Visit Diagnoses Diagnosis Esophagitis, eosinophilic- Primary Eosinophilic esophagitis Gastroparesis Diarrhea, unspecified type Blood in stool documented in this encounter Care Teams Senior Web Applications Developer Relationship Specialty Start Date End Date Radha Chau DO [address] [place] [address] PCP - General Family Medicine 07/30/18 02/02/20 documented as of this encounter
--- OUTSIDE RECORDS SUMMARY | 2024-01-11 19:02 | XMS_ITS | Encounter Summary ---
Author Organization [facility] Address [address] [place] [address] Care Team Providers Care Case Management Manager Name Role Phone Radha Chau Primary Care Provider [phone] Reason for Visit * Reason Comments Abdominal Pain Encounter Details Date Type Department Care Team (Late st Contact Info) Description 07/08/2019 5:08 PM EDT - 07/08/2019 9:32 PM EDT Emergency [facility] EMERGENCY DEPARTMENT [address] [place] [address] Mark Barnes MD [address] [facility] [place] [address] Recurrent right lower quadrant abdominal pain (Primary Dx); Appendicolith; Mesenteric lymphadenopathy; Nausea vomiting and diarrhea; History of endometriosis; History of ovarian cyst Discharge Disposition: Left Against Medical Advice 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 Tobacco Use Types Packs/Day Years [...] Sign Reading Time Taken Comments Blood Pressure 157/94 07/08/2019 5:16 PM EDT Pulse 108 07/08/2019 5:16 PM EDT Temperature 36.9 ??C (98.4 ??F) 07/08/2019 5:05 PM ED T Respiratory Rate 16 07/08/2019 5:16 PM EDT Oxygen Saturation 97% 07/08/2019 5:16 PM EDT Inhaled Oxygen Concentration - - Weight 141 kg (310 lb 13.6 oz) 07/08/2019 5:11 P M EDT Height 167.6 cm (5' 5.98 ) 07/08/2019 5:11 PM ED T Body Mass Index 50.2 07/08/2019 5:11 PM EDT documented in this encounter Discharge Instructions * Discharge Instructions* Marilia Cruz PA-C - 07/08/2019 9:40 PM EDT ER work-up revealed normal CBC, chemistries, and normal urinalysis. CT scan time was prolonged, so patient left prior to CT scan being performed. She needs to follow-up closely with Dr. Carvalho, general surgeon, as scheduled. Increase fluid intake. Return to the ER if worsening symptoms. * Attachments The following attachments cannot be sent through Care Everywhere. * Abdominal Pain Adult [id number] ([place]) documented in this encounter Medications at Time of Discharge escitalopram (LEXAPRO) 20 MG tablet Take 20 mg by mouth Daily. 05/29/2019 1 HYDROcodone-aceta minophen (NORCO) 5-325 MG per tabletIndications :Epigastric pain Take 1 tablet by mouth Every 6 (Six) Hours As Needed for Moderate Pain or Severe Pain . 15 tablet 06/14/2019 0 pantoprazole (Protonix) 40 MG EC tabletIndications :Odynophagia,Esop hageal dysphagia,Gastroe sophageal reflux disease, esophagitis presence not specified Take 1 tablet by mouth 2 (Two) Times a Day. 60 tablet 5 06/21/2019 0 promethazine (PHENERGAN) 25 MG tabletIndications :Non-intractable vomiting with nausea, unspecified vomiting type Take 1 tablet by mouth Every 6 (Six) Hours As Needed for Nausea or Vomiting. 20 tablet 1 06/11/2019 0 valACYclovir (VALTREX) 1000 MG tabletIndications :HSV (herpes simplex virus) infection Take 1 tablet by mouth Daily. 90 tablet 1 03/08/2019 1 documented as of this encounter ED Notes * Sahil Glover PA - 07/08/2019 8:02 PM EDT Subjective Ms. Dowd is a 28-year-old female that comes to the emergency room today having chronic right lower abdominal pain. She is actually admitted to the hospital June 11 here at [facility] and wasseen by the surgeon on-call. They kept her overnight he reevaluated the patient and the CT scan didnot find any evidence of appendicitis although she did have an appendicolith. She had a colonoscopyand an EGD which showed some gastritis but otherwise unremarkable. She is continued to have abdominal pain. She was actually seen by general surgeon Dr. Deven espinal at [facility]. He feels that she may need an exploratory surgery. She did a visit today with [facility] she states that they did not scan her but did repeat labs because she is continued to have pain. She is already had a partial hysterectomy and right oophorectomy. She denies any dysuria frequency urgency or hematuria. She is had no fevers no chills no Reiger's. Movement seems to exacerbate her pain nothing seems to alleviate the pain. It was noted that she had mesenteric adenitis on the first 2 scans that were done here during her admission. She denies any bloody stools black tarry stools. She has no other complaints. History provided by: Patient director of business services used: No Abdominal Pain Pain location: RLQ Pain quality: cramping, shooting and stabbing Pain radiates to: Does not radiate Pain severity: Severe Onset quality: Gradual Timing: Intermittent Progression: Worsening Chronicity: Chronic Context: not alcohol use, not diet changes, not eating, not previous surgeries, not recent illness,not recent sexual activity, not recent travel, not sick contacts, not suspicious food intake and not trauma Relieved by: Nothing Worsened by: Movement Ineffective treatments: None tried Associated symptoms: no anorexia, no chest pain, no chills, no constipation, no diarrhea, no fever,no hematemesis, no hematochezia, no hematuria, no shortness of breath, no vaginal bleeding and no vaginal discharge Risk factors: no aspirin use, has not had multiple surgeries, no NSAID use and not Review of Systems Constitutional: Negative for chills and fever. Respiratory: Negative for chest tightness, shortness of breath and wheezing. Cardiovascular: Negative for chest pain and palpitations. Gastrointestinal: Positive for abdominal pain. Negative for anorexia, constipation, diarrhea, hematemesis and hematochezia. Genitourinary: Negative for hematuria, vaginal bleeding and vaginal discharge. Musculoskeletal: Negative for back pain and neck pain. Skin: Negative for pallor and rash. Psychiatric/Behavioral: Negative. All other systems reviewed and are negative. Past Medical History: Diagnosis Date ??? Anxiety ??? Depression ??? Endometriosis ??? Fibroid tumor ??? Ovarian cyst No Known Allergies Past Surgical History: Procedure Laterality Date ??? SECTION ??? CHOLECYSTECTOMY ??? COLONOSCOPY N/A 06/13/2019 Procedure: COLONOSCOPY; Surgeon: Virgil Wallace MD; Location: [facility]; Service: Gastroenterology; Laterality: N/A; ??? DILATATION AND CURETTAGE ??? ENDOSCOPY N/A 06/13/2019 Procedure: ESOPHAGOGASTRODUODENOSCOPY; Surgeon: Virgil Wallace MD; Location: [facility]; Service: Gastroenterology; Laterality: N/A; ??? HYSTERECTOMY Partial ??? TONSILLECTOMY ??? TUBAL ABDOMINAL LIGATION No family history on file. 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 Socioeconomic History ??? Marital status: Single Spouse name: Not on file ??? Number of children: Not on file ??? Years of education: Not on file ??? Highest education level: Not on file Tobacco Use ??? Smoking status: Never Smoker ??? Smokeless tobacco: Never Used Substance and Sexual Activity ??? Alcohol use: No ??? Drug use: No Objective Physical Exam Constitutional: She is oriented to person, place, and time. She appears well- developed and well-nourished. No distress. HENT: Head: Normocephalic and atraumatic. Nose: Nose normal. Eyes: Conjunctivae are normal. No scleral icterus. Neck: Normal range of motion. Neck supple. Cardiovascular: Normal rate, regular rhythm, normal heart sounds and intact distal pulses. No murmur heard. Pulmonary/Chest: Effort normal and breath sounds normal. No respiratory distress. Abdominal: Soft. Bowel sounds are normal. There is no hepatosplenomegaly, splenomegaly or hepatomegaly. There is tenderness in the right lower quadrant. There is no rigidity, no rebound, no guarding,no CVA tenderness, no tenderness at McBurney's point and negative Corcoran's sign. No hernia. Hernia confirmed negative in the ventral area, confirmed negative in the right inguinal area and confirmed negative in the left inguinal area. Musculoskeletal: Normal range of motion. Neurological: She is alert and oriented to person, place, and time. Skin: Skin is warm and dry. She is not diaphoretic. Psychiatric: She has a normal mood and affect. Her behavior is normal. Nursing note and vitals reviewed. Procedures ED Course ED Course as of Jul 08 1840MonJuly 08, [id number] CT has been notified that patient has been ready for quite some time for CAT scan. They said that they will come and get her now. This has been 3-1/2 hours after order was put in. CBC and chemistries were completely normal. Urinalysis shows no acute infectious process and urine hCG is negative. [FC] 2135 Due to the prolonged wait time for CT scan, patient said that she was going to leave. She saidthat her kids have been out of the car and she has to get home. She said that she will follow-up with her general surgeon, Dr. Carvalho, as scheduled at [facility]. [FC] ED Course User Index [FC] Marilia Cruz PA-C Recent Results (from the past 24 hour(s)) Urinalysis With Microscopic If Indicated (No Culture) - Urine, Clean Catch Collection Time: 07/08/19 6:56 PM Result Value Ref Range Color, UA Yellow Yellow, Straw Appearance, UA Clear Clear pH, UA <=5.0 5.0 - 8.0 Specific [place], UA 1.067 (H) 1.001 - 1.030 Glucose, UA Negative Negative Ketones, UA Negative Negative Bilirubin, UA Negative Negative Blood, UA Negative Negative Protein, UA Negative Negative Leuk Esterase, UA Negative Negative Nitrite, UA Negative Negative Urobilinogen, UA 0.2 E.U./dL 0.2 - 1.0 E.U./dL POC , Urine Collection Time: 07/08/19 7:06 PM Result Value Ref Range HCG, Urine, QL Negative (NEGATIVE) Negative Lot Number [id number] Internal Positive Control Positive Internal Negative Control Negative Note: In addition to lab results from this visit, the labs listed above may include labs taken at another facility or during a different encounter within the last 24 hours. Please correlate lab timeswith ED admission and discharge times for further clarification of the services performed during this visit. No orders to display Vitals: 07/08/19 1705 07/08/19 1711 07/08/19 1716 BP: 157/94 Pulse: 108 Resp: 16 Temp: 98.4 ??F (36.9 ??C) TempSrc: Oral SpO2: 97% Weight: (!) 141 kg (310 lb 13.6 oz) Height: 167.6 cm (65.98 ) Medications ketorolac (TORADOL) injection 30 mg (30 mg Intravenous Given 07/08/191837) ECG/EMG Results (last 24 hours) No results found for the last 24 hours. No orders to display MDM Number of Diagnoses or Management Options Appendicolith: new and requires workup History of endometriosis: new and requires workup History of ovarian cyst: new and requires workup Mesenteric lymphadenopathy: new and requires workup Nausea vomiting and diarrhea: new and requires workup Recurrent right lower quadrant abdominal pain: new and requires workup Amount and/or Complexity of Data Reviewed Clinical lab tests: reviewed and ordered Tests in the radiology section of CPT??: reviewed and ordered Tests in the medicine section of CPT??: ordered and reviewed Final diagnoses: Recurrent right lower quadrant abdominal pain Appendicolith Mesenteric lymphadenopathy Nausea vomiting and diarrhea History of endometriosis History of ovarian cyst Sahil Glover PA 07/09/19 1841 Cosigned by Mark Barnes MD at 07/09/2019 7:51 PM EDT Associated attestation - Mark Barnes MD - 07/09/2019 7:51 PM EDT For this patient encounter, I reviewed the VICE PRESIDENT PROCESS or PA documentation, treatment plan, and medical decision making. Mark Branes MD 07/09/2019 19:51 documented in this encounter Plan of Treatment Not on file documented as of this encounter Procedures Procedure Name Priority Date/Time Associated Diagnosis Comments POCT PEFORM URINE STAT 07/08/2019 7:06 PM EDT URINALYSIS W/ MICROSCOPIC IF INDICATED (NO CULTURE) STAT 07/08/2019 6:56 PM EDT CBC WITH AUTO DIFFERENTIAL STAT 07/08/2019 6:39 PM EDT CBC AND DIFFERENTIAL STAT 07/08/2019 6:39 PM EDT COMPREHENSIVE METABOLIC PANEL STAT 07/08/2019 6:39 PM EDT documented in this encounter Results * (ABNORMAL) POC , Urine (07/08/2019 7:06 PM EDT) HCG, Urine, QL Negative(NEG ATIVE) Negative [facility] Lot Number [id number] [facility] Internal Positive Control Positive [facility] Internal Negative Control Negative [facility] Urine 07/08/2019 7:06 PM EDT Sahil BROWNING POINT OF CARE TEST ORDERA BLES Final Result [facility]
[address] [place] [address], [place] [phone] * (ABNORMAL) Urinalysis With Microscopic If Indicated (No Culture) - Urine, Clean Catch (07/08/2019 6:56 PM EDT) Color, UA Yellow Yellow, Straw 07/08/2019 7:09 PM EDT [facility] Appearance, UA Clear Clear 07/08/2019 7:09 PM EDT [facility] pH, UA <=5.0 5.0 - 8.0 07/08/2019 7:09 PM EDT [facility] Specific [place], UA 1.067(H) 1.001 - 1.030 07/08/2019 7:09 PM EDT [facility] Glucose, UA Negative Negative 07/08/2019 7:09 PM EDT [facility] Ketones, UA Negative Negative 07/08/2019 7:09 PM EDT [facility] Bilirubin, UA Negative Negative 07/08/2019 7:09 PM EDT [facility] Blood, UA Negative Negative 07/08/2019 7:09 PM EDT [facility] Protein, UA Negative Negative 07/08/2019 7:09 PM EDT [facility] Leuk Esterase, UA Negative Negative 07/08/2019 7:09 PM EDT [facility] Nitrite, UA Negative Negative 07/08/2019 7:09 PM EDT [facility] Urobilinogen, UA 0.2 E.U./dL 0.2 - 1.0 E.U./dL 07/08/2019 7:09 PM EDT [facility] Urine Urine specimen collection, clean catch / Unknown Collection / Unknown 07/08/2019 6:56 PM EDT 07/08/2019 7:04 PM EDT Narrative [facility] - 07/08/2019 7:09 PM EDT Urine microscopic not indicated. us Sahil BROWNING URINE ORDERABLES Final Re sult [facility]
[address] [place] [address], * (ABNORMAL) CBC Auto Differential (07/08/2019 6:39 PM EDT) WBC 8.65 3.40 - 10.80 10*3/mm3 07/08/2019 6:50 PM EDT [facility] RBC 3.99 3.77 - 5.28 10*6/mm3 07/08/2019 6:50 PM EDT [facility] Hemoglobin 12.0 12.0 - 15.9 g/dL 07/08/2019 6:50 PM EDT [facility] Hematocrit 35.0 34.0 - 46.6 % 07/08/2019 6:50 PM EDT [facility] MCV 87.7 79.0 - 97.0 fL 07/08/2019 6:50 PM EDT [facility] MCH 30.1 26.6 - 33.0 pg 07/08/2019 6:50 PM EDT [facility] MCHC 34.3 31.5 - 35.7 g/dL 07/08/2019 6:50 PM EDT [facility] RDW 11.9(L) 12.3 - 15.4 % 07/08/2019 6:50 PM EDT [facility] RDW-SD 38.2 37.0 - 54.0 fl 07/08/2019 6:50 PM EDT [facility] MPV 10.0 6.0 - 12.0 fL 07/08/2019 6:50 PM EDT [facility] Platelets 244 140 - 450 10*3/mm3 07/08/2019 6:50 PM EDT [facility] Neutrophil % 61.0 42.7 - 76.0 % 07/08/2019 6:50 PM EDT [facility] Lymphocyte % 27.2 19.6 - 45.3 % 07/08/2019 6:50 PM EDT [facility] Monocyte % 7.1 5.0 - 12.0 % 07/08/2019 6:50 PM EDT [facility] Eosinophil % 3.8 0.3 - 6.2 % 07/08/2019 6:50 PM EDT [facility] Basophil % 0.6 0.0 - 1.5 % 07/08/2019 6:50 PM EDT [facility] Immature Grans % 0.3 0.0 - 0.5 % 07/08/2019 6:50 PM EDT [facility] Neutrophils, Absolute 5.28 1.70 - 7.00 10*3/mm3 07/08/2019 6:50 PM EDT [facility] Lymphocytes, Absolute 2.35 0.70 - 3.10 10*3/mm3 07/08/2019 6:50 PM EDT [facility] Monocytes, Absolute 0.61 0.10 - 0.90 10*3/mm3 07/08/2019 6:50 PM EDT [facility] Eosinophils, Absolute 0.33 0.00 - 0.40 10*3/mm3 07/08/2019 6:50 PM EDT [facility] Basophils, Absolute 0.05 0.00 - 0.20 10*3/mm3 07/08/2019 6:50 PM EDT [facility] Immature Grans, Absolute 0.03 0.00 - 0.05 10*3/mm3 07/08/2019 6:50 PM EDT [facility] nRBC 0.0 0.0 - 0.2 /100 WBC 07/08/2019 6:50 PM EDT [facility] Blood Venipuncture / Unknown 07/08/2019 6:39 PM EDT 07/08/2019 6:47 PM EDT us Sahil BROWNING LAB BLOOD ORDERABLES Magdalena l Result [facility]
[address] [place] [address], * (ABNORMAL) Comprehensive Metabolic Panel (07/08/2019 6:39 PM EDT) Glucose 109(H) 65 - 99 mg/dL 07/08/2019 7:10 PM EDT [facility] BUN 6 6 - 20 mg/dL 07/08/2019 7:10 PM EDT [facility] Creatinine 0.59 0.57 - 1.00 mg/dL 07/08/2019 7:10 PM EDT [facility] Sodium 138 136 - 145 mmol/L 07/08/2019 7:10 PM EDT [facility] Potassium 3.8 3.5 - 5.2 mmol/L 07/08/2019 7:10 PM EDT [facility] Chloride 102 98 - 107 mmol/L 07/08/2019 7:10 PM EDT [facility] CO2 24.0 22.0 - 29.0 mmol/L 07/08/2019 7:10 PM EDT [facility] Calcium 8.8 8.6 - 10.5 mg/dL 07/08/2019 7:10 PM EDT [facility] Total Protein 6.7 6.0 - 8.5 g/dL 07/08/2019 7:10 PM EDT [facility] Albumin 4.10 3.50 - 5.20 g/dL 07/08/2019 7:10 PM EDT [facility] ALT (SGPT) 24 1 - 33 U/L 07/08/2019 7:10 PM EDT [facility] AST (SGOT) 21 1 - 32 U/L 07/08/2019 7:10 PM EDT [facility] Alkaline Phosphatase 65 39 - 117 U/L 07/08/2019 7:10 PM EDT [facility] Total Bilirubin 0.2 0.2 - 1.2 mg/dL 07/08/2019 7:10 PM EDT [facility] eGFR Non Amer 120 >60 mL/min/1.7 3 07/08/2019 7:10 PM EDT [facility] Globulin 2.6 gm/dL 07/08/2019 7:10 PM EDT [facility] A/G Ratio 1.6 g/dL 07/08/2019 7:10 PM EDT [facility] BUN/Creatinine Ratio 10.2 7.0 - 25.0 07/08/2019 7:10 PM EDT [facility] Anion Gap 12.0 5.0 - 15.0 mmol/L 07/08/2019 7:10 PM EDT [facility] Blood Venipuncture / Unknown 07/08/2019 6:39 PM EDT 07/08/2019 6:47 PM EDT [facility] - 07/08/2019 7:10 PM EDT GFR Normal >60 Chronic Kidney Disease <60 Kidney Failure <15 us Sahil BROWNING LAB BLOOD ORDERABLES Magdalena l Result [facility]
[address] [place] [id number], [place] [phone] documented in this encounter Visit Diagnoses Diagnosis Recurrent right lower quadrant abdominal pain- Primary Appendicolith Mesenteric lymphadenopathy Nausea vomiting and diarrhea History of endometriosis Personal history of other genital system and obstetric disorders History of ovarian cyst Personal history of other genital system and obstetric disorders documented in this encounter Administered Medications Inactive Administered Medications - up to 3 most recent administrations Medication Order MAR Action Action Date Dose Rate Site ketorolac (TORADOL) injection 30 mg 30 mg, Intravenous, Once, On Mon07/08/19 at 1811, For 1 dose, {BKC} If given for pain, use the following pain scale: Mild Pain = Pain Score of 1-3, CPOT 1-2 Moderate Pain = Pain Score of 4-6, CPOT 3-4 Severe Pain = Pain Score of 7-10, CPOT 5-8 Given 07/08/2019 6:38 PM EDT 30 mg documented in this encounter Active and Recently Administered Medications Times are shown in EDT. Scheduled Medication Order 07/06/2019 07/07/2019 07/08/2019 ketorolac (TORADOL) injection 30 mg (COMPLETED) 30 mg, Intravenous, Once, On 07/08/19 at 1811, For 1 dose, {BKC} If given for pain, use the following pain scale: Mild Pain = Pain Score of 1-3, CPOT 1-2 Moderate Pain = Pain Score of 4-6, CPOT 3-4 Severe Pain = Pain Score of 7-10, CPOT 5-8 1838 (Given - Provid er: Timmy Rodriguez RN) documented in this encounter Care Teams Case Management Manager Relationship Specialty Start Date End Date [place] [address] PCP - General Family Medicine 07/30/18 02/02/20 documented as of this encounter
--- OUTSIDE RECORDS SUMMARY | 2024-01-11 19:02 | XMS_ITS | Encounter Summary ---
[facility] Organization [facility] Address [address] [place] [address] Care Team Providers Care [place] Attorney Name Role Phone Radha Chau Primary Care Provider [phone] Encounter Details Date Type Department Care Team (Late st Contact Info) Description 07/08/2019 Telephone [facility] [address] [place] [address] Sofia Sullivan MA 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 [...] Telephone Encounter - Jacky Damon APRN - 07/08/2019 1:58 PM EDT No, EGD does not need to be repeated until EOE has been treated. She only started treatment with BID PPI two weeks ago. Since her dysphagia is worsening will add Flovent inhaler 220 mcg sprayed on back of tongue twice daily for additional treatment of EOE. * Telephone Encounter - Sofia Sullivan MA - 07/08/2019 1:30 PM EDT Patient is having increased dysphagia and vomiting and is wondering if she can have her repeat EGD done sooner? documented in this encounter Plan of Treatment Not on file documented as of this encounter Visit Diagnoses Not on filedocumented in this encounter Care Teams [place] Attorney Relationship Specialty Start Date End Date Radha Chau DO [address] [place] [address] PCP - General Family Medicine 07/30/18 02/02/20 documented as of this encounter
--- OUTSIDE RECORDS SUMMARY | 2024-01-11 19:02 | XMS_ITS | Encounter Summary ---
[facility] Address [address] [place] [id number] Care Team Providers Care Personnel Administrator Name Role Phone Radha Chau DO Primary Care Provider [phone] Encounter Details Date Type Department Care Team (Late st Contact Info) Description 10/25/2019 8:30 AM EDT Outside Facility Service [facility] [address] [facility] [address] [place] [id number] Aristides Mai MD [address] [address] [place] [address] 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 Tobacco Use Types Packs/Day Years [...] Priority Date/Time Associated Diagnosis Comments ENDOSCOPY, INT 10/25/2019 documented in this encounter Results * ENDOSCOPY, INT (10/25/2019) us Aristides Mai MD INTERFACE NEEDS Final Res ult documented in this encounter Visit Diagnoses Not on filedocumented in this encounter Care Teams Personnel Administrator Relationship Specialty Start Date End Date Radha Chau DO [address] [place] [address] [place] [address] PCP - General Family Medicine 07/30/18 02/02/20 documented as of this encounter
--- OUTSIDE RECORDS SUMMARY | 2024-01-11 19:02 | XMS_ITS | Encounter Summary ---
Author Organization [facility] Address [address] [place] [address] Care Team Providers Care Carding Utility Tender Name Role Phone Radha Chau Primary Care Provider [phone] [phone] Reason for Visit * Reason Comments Follow-up Post EGD Difficulty Swallowing Abdominal Pain Encounter Details Date Type Department Care Team (Late st Contact Info) Description 09/09/2019 10:30 AM EDT Office Visit [facility] GASTR[facility]OLOGY [address] [facility] [address] [place] [address] Jacky Damon, OIL FIELD LABORER [address] [place] [address] Esophagitis, eosinophilic (Primary Dx); Gastroparesis 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 Tobacco Use Types Packs/Day [...] Sign Reading Time Taken Comments Blood Pressure 143/75 09/09/2019 10:18 AM EDT Pulse 87 09/09/2019 10:18 AM EDT Temperature 36.9 ??C (98.4 ??F) 09/09/2019 10:18 AM E DT Respiratory Rate - - Oxygen Saturation - - Inhaled Oxygen Concentration - - Weight 143 kg (315 lb 6.4 oz) 09/09/2019 10:18 A M EDT Height - - Body Mass Index 50.94 08/30/2019 3:33 PM EDT documented in this encounter Progress Notes * Jacky Damon, OIL FIELD LABORER - 09/09/2019 10:30 AM EDT GASTROENTEROLOGY OFFICE NOTE Ivon Erwin [id number] 1990 CARE TEAM Patient Care Team: Radha Chau, as PCP - General (Family Medicine) Referring Provider: Radha Chau, DO Chief Complaint Patient presents with ??? Follow-up Post EGD ??? Difficulty Swallowing ??? Abdominal Pain HISTORY OF PRESENT ILLNESS: Ivon returns in follow-up status post EGD for complaints of dysphasia and history of eosinophilicesophagitis. She was noted first to have EOE in May 2019. She has been taking high-dose PPI. Follow-up EGD in July continued to show longitudinal furrows suggestive of EOE. A Schatzki's ring was noted and dilated to size 54F with a TTS balloon. She had a large amount of retained food in the body of the stomach suggesting poor emptying. Esophageal biopsies confirmed EOE with moderate to severe eosinophilia numbering as many as 40 eosinophils in a single HPF. She continues to have significant problems swallowing. She is having daily nausea and frequent vomiting with early satiety. PAST MEDICAL HISTORY Past Medical History: Diagnosis [...] Procedure: ESOPHAGOGASTRODUODENOSCOPY; Surgeon: Virgil Wallace MD; Location: [facility]; Service: Gastroenterology; Laterality: N/A; ??? HYSTERECTOMY [...] prn, Disp: 1 each, Rfl: 0 ??? Lancets misc, Check glucose daily and prn, Disp: 100 each, Rfl: 5 ??? metFORMIN (Glucophage) 500 MG tablet, Take 1 tablet by mouth 2 (Two) Times a Day With Meals., Disp: 60 tablet, Rfl: 1 ??? pantoprazole (Protonix) 40 MG EC tablet, Take 1 tablet by mouth 2 (Two) Times a Day., Disp: 60 tablet, Rfl: 5 ??? promethazine (PHENERGAN) 25 MG tablet, Take 0.5-1 tablets by mouth Every 6 (Six) Hours As Needed for Nausea or Vomiting., Disp: 20 tablet, Rfl: 1 ??? valACYclovir (VALTREX) 1000 MG tablet, Take [...] Negative for voice change. Gastrointestinal: Positive for nausea, vomiting and indigestion. Negative for abdominal distention,abdominal pain, anal bleeding, blood in stool, constipation, diarrhea, rectal pain and GERD. PHYSICAL EXAM BP 143/75 (BP Location: Left arm, Patient Position: Sitting, Cuff Size: Adult) Pulse 87 Temp 98.4 ??F (36.9 ??C) (Temporal) Wt (!) 143 kg (315 lb 6.4 oz) BMI 50.94 kg/m?? Physical Exam Constitutional: She is oriented to person, place, and time. She appears well- developed and well-nourished. HENT: Head: Normocephalic. Mouth/Throat: Oropharynx is clear and moist. Eyes: Pupils are equal, round, and reactive to light. EOM are normal. Neck: Normal range of motion. Neck supple. Cardiovascular: Normal rate and regular rhythm. Pulmonary/Chest: Effort normal and breath sounds normal. She has no wheezes. She has no rales. Abdominal: Soft. Bowel sounds are normal. She exhibits no mass. There is no tenderness. There is norebound and no guarding. No hernia. Musculoskeletal: Normal range of motion. Neurological: She is alert and oriented to person, place, and time. No cranial nerve deficit. Skin: Skin is warm and dry. Psychiatric: She has a normal mood and affect. Her behavior is normal. Judgment normal. Nursing note and vitals reviewed. Results Review: I have reviewed the patient's new clinical results. ASSESSMENT / PLAN 1. Eosinophilic esophagitis - Continue pantoprazole 40 mg twice daily - Began Flovent respules 0.25%, mix 2 respules in 5 packets of Splenda making a slurry and swallow twice daily. 2. Gastroparesis Gastroparesis nutrition therapy discussed with patient: Eat small, frequent meals. Avoid foods thatare high in fat. Do not eat foods high in fiber or take fiber supplements or fiber bulking agents. Do not eat foods that increase acid reflux such as acidic, spicy, fried or greasy foods. Do not drink alcohol or smoke. Do not drink carbonated beverages, as they increase bloating. If symptoms are severe, semisolid foods or liquids may need to be your main food sources. Choose liquid nutritional supplements that have less than or equal to 2 g of fiber per serving. Sit upright while eating and situpright or walk after meals. Do not lie down for 3 to 4 hours after eating to avoid reflux or regurgitation. Return in about 8 weeks (around 11/04/2019). I discussed the patients findings and my recommendations with patient Jacky Damon APRN documented in this encounter Plan of Treatment Not on file documented as of this encounter Visit Diagnoses Diagnosis Esophagitis, eosinophilic- Primary Eosinophilic esophagitis Gastroparesis documented in this encounter Care Teams Carding Utility Tender Relationship Specialty Start Date End Date Radha Chau DO [address] [place] [address] PCP - General Family Medicine 07/30/18 02/02/20 documented as of this encounter
--- OUTSIDE RECORDS SUMMARY | 2024-01-11 19:02 | XMS_ITS | Encounter Summary ---
Author Organization [facility] Address [address] [place] [address] Care Team Providers Care Supervisor Asbestos Removal Name Role Phone Radha Chau DO Primary Care Provider [phone] Reason for Visit * Reason Onset Date Comments Letter for School/Work 09/09/2019 Encounter Details Date Type Department Care Team (Late st Contact Info) Description 09/09/2019 Telephone [facility] FAMILY MEDICINE [address] [facility] [place] [address] Radha Chau DO [address] [facility] [place] [address] Letter for School/Work 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 Tobacco Use Types Packs/Day Years [...] encounter Miscellaneous Notes * Telephone Encounter - Odalis Newell MA - 09/09/2019 5:01 PM EDT Pt did not remember the name of the medication but we did not prescribe it, psychiatry did Rx it. Iinformed her what Dr. Chau stated and she voiced understanding. * Telephone Encounter - Radha Chau DO - 09/09/2019 4:31 PM EDT Who wrote the medication that she is having side effects to? If it's related to psychiatry, her psychiatrist needs to manage her time off from work. I already extended her time off until 09/16/19, letter in chart and provided to patient during her last office visit. * Telephone Encounter - Margot Zelaya RegSched Rep - 09/09/2019 2:32 PM EDT PT IS REQUESTING A LETTER FOR WORK STATING THAT SHE CAN'T RETURN TO WORK UNTIL 09/17. PT STATES SHE [place] PRESCRIBED A NEW MEDICATION THAT MAKES HER NAUSEOUS. FAX ATTN:ALEXANDRO LANG [phone] PLEASE ADVISE [phone] documented in this encounter Plan of Treatment Not on file documented as of this encounter Visit Diagnoses Not on filedocumented in this encounter Care Teams Supervisor Asbestos Removal Relationship Specialty Start Date End Date Radha Chau DO [place] [address] PCP - General Family Medicine 07/30/18 02/02/20 documented as of this encounter
--- OUTSIDE RECORDS SUMMARY | 2024-01-11 19:02 | XMS_ITS | Encounter Summary ---
Author Organization [facility] Address [address] [place] [address] Care Team Providers Care Inspecting Supervisor Name Role Phone Radha Chau Primary Care Provider [phone] Encounter Details Date Type Department Care Team (Late st Contact Info) Description 08/16/2019 10:00 AM EDT Telemedicine [facility] FAMILY MEDICINE [address] [place] [address] Tamy Hughes, MANAGER REVIEW [address] [place], [place] [id number] Type 2 diabetes mellitus without complication, without long-term current use of insulin (Primary Dx); Shortness of breath; Dizziness 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 Tobacco Use Types Packs/Day Years [...] as of this encounter Progress Notes * Tamy Hughes, MANAGER REVIEW - 08/16/2019 10:00 AM EDT Subjective Ivon Erwin is a 28 y.o. female. History of Present Illness You have chosen to receive care through a telehealth visit. Do you consent to use a video/audio connection for your medical care today? Yes Lightheaded, SOB breaks out in sweats at night and diarrhea going on for the past 3 weeks. Had surgery laproscopic appendectomy July 11 . Went to ER 07/15 was supposed to CTA but did not wait for the test was treated with abx. Was seen by Dr Chau 07/18 treated for pneumonia and had labs, dx with type 2 DM but did not start medication. She was feeling dizzy or lightheaded spell yesterday lasted 20 minutes (at times last up to 2 hours), checked sugar and it was elevated. Says the spell ended in a bad headache yesterday Feeling super tired. Diagnosed with pneumonia after having surgery. Treated with abx. COVID tested negative Works in [employer] in [place] going in to homes The following portions of the patient's history were reviewed and updated as appropriate: allergies, current medications, past family history, past medical history, past social history, past surgicalhistory and problem list. Review of Systems Constitutional: Positive for activity change, diaphoresis (night sweats ) and fatigue. HENT: Negative. Eyes: Negative. Respiratory: Positive for shortness of breath. Cardiovascular: Negative. Negative for chest pain and palpitations. Gastrointestinal: Negative for abdominal distention, constipation, diarrhea, nausea and vomiting. Endocrine: Negative. Genitourinary: Negative. Musculoskeletal: Negative. Skin: Negative. Neurological: Positive for dizziness, weakness, light-headedness and headache. Hematological: Negative. Psychiatric/Behavioral: Negative. Objective Physical Exam Constitutional: She is oriented to person, place, and time. She appears well- nourished. No distress. HENT: Head: Normocephalic. Pulmonary/Chest: Effort normal. Neurological: She is alert and oriented to person, place, and time. Skin: Skin is dry. She is not diaphoretic. Psychiatric: She has a normal mood and affect. Her behavior is normal. Judgment and thought contentnormal. Video visit, ambulating without difficulty, no SOA or audible wheezing noted. Assessment/Plan Diagnoses and all orders for this visit: Type 2 diabetes mellitus without complication, without long-term current use of insulin ([facility]) - metFORMIN (Glucophage) 500 MG tablet; Take 1 tablet by mouth 2 (Two) Times a Day With Meals. - Blood Glucose Monitoring Suppl (ONE TOUCH ULTRA 2) w/Device kit; 1 Device Daily. - glucose blood test strip; Use as instructed Shortness of breath Dizziness Will start pt on Metformin and send in glucometer to pharmacy. Pt was advised that she needs to go to ER for evaluation of possible PE due to SOA and dizziness and recent surgery 3 weeks ago. It may be that she is still recovering from pneumonia which can take several weeks but needs to be checked to make sure. Pt agrees. Needs to have follow up for recheck labs in September with PCP. documented in this encounter Plan of Treatment Not on file documented as of this encounter Visit Diagnoses Diagnosis Type 2 diabetes mellitus without complication, without long-term current use of insulin- Primary Shortness of breath Dizziness Dizziness and giddiness documented in this encounter Care Teams Inspecting Supervisor Relationship Specialty Start Date End Date Radha Chau DO [address] [place] [address] PCP - General Family Medicine 07/30/18 02/02/20 documented as of this encounter
--- OUTSIDE RECORDS SUMMARY | 2024-01-11 19:02 | XMS_ITS | Encounter Summary ---
Author Organization [facility] Address [address] [place] [address] Care Team Providers Care Vice President Global Digital Marketing Name Role Phone Radha Chau Primary Care Provider [phone] Encounter Details Date Type Department Care Team (Late st Contact Info) Description 06/17/2019 Transitional Care Management Telephone Encounter [facility] [address] [place] [address] Oziel Pizano LPN 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 Tobacco Use Types Packs/Day Years [...] as of this encounter Miscellaneous Notes * Outreach Note - Oziel Pizano LPN - 06/17/2019 12:48 PM EDT Call Center TCM Note Responses [facility] patient discharged from? [facility] COVID-19 Test Status Not tested Does the patient have one of the following disease processes/diagnoses(primary or secondary)? Other TCM attempt successful? Yes Call start time 1250 Call end time 1306 Discharge diagnosis RLQ abdominal pain, esophageal stenosis, dysphagia Meds reviewed with patient/caregiver? Yes Is the patient having any side effects they believe may be caused by any medication additions or changes? No Does the patient have all medications ordered at discharge? Yes Is the patient taking all medications as directed (includes completed medication regime)? Yes Does the patient have a primary care provider? Yes Does the patient have an appointment with their PCP within 7 days of discharge? Greater than 7 days What is preventing the patient from scheduling follow up appointments within 7 days of discharge? Earlier appointment not available Nursing Interventions Verified appointment date/time/provider Has the patient kept scheduled appointments due by today? N/A Has home health visited the patient within 72 hours of discharge? N/A Psychosocial issues? No Did the patient receive a copy of their discharge instructions? Yes Nursing interventions Reviewed instructions with patient What is the patient's perception of their health status since discharge? Improving Is the patient/caregiver able to teach back signs and symptoms related to disease process for when to call PCP? Yes Is the patient/caregiver able to teach back signs and symptoms related to disease process for when to call 911? Yes Is the patient/caregiver able to teach back the hierarchy of who to call/visit for symptoms/problems? PCP, Specialist, Home health nurse, Urgent Care, ED, 911 Yes Additional teach back comments Patient reports that she has had pink blood on toilet tissue when wiping after urination. She states that she no longer has periods. She denies pain with urination. Sherates abdominal pain as 7/10 norco helps but her pain is always around a 7. She states that ct scanshowed that she has a small right ovary but she reports that her right ovary was removed could thisbe causing her pain? She would like to know what is showing up on the CT. Patient is still having liquid bm x4 daily. TCM call completed? Yes Wrap up additional comments I will notify PCP of multiple patient issues via [employer] epic message. Patient reports that she has had pink blood on toilet tissue when wiping after urination. She states that she no longer has periods. She denies pain with urination and fever. She rates right sided abdominal pain as 7/10. norco helps but her pain is always around a 7. She states that ct scan showed that she has a small right ovary but she reports that her right ovary was removed could this be causing her pain? She would like to know what is showing up on the CT. Patient is still having liquid bmx4 daily. One episode of bowel incontinence since d/c from hospital. She states that she needs a doctors note for missing work. She has tried to contact the hospital for this without success. She would like to pick this up from the office instead. Please advise. Thank you. Oziel Pizano LPN 06/17/2019, 13:06 * Outreach Note - Radha Chau DO - 06/17/2019 12:48 PM EDT Please recommend that she follow up with reheater regarding pelvic pain and ovary seen on CT scan. If urinary symptoms persist, will need to be seen to have urine checked. Does she have a follow up with gastroenterology? Ok for work excuse. * Outreach Note - Aziza Robins - 06/17/2019 12:48 PM EDT LVM for patient to call back. * Outreach Note - Aziza Robins - 06/17/2019 12:48 PM EDT Patient returned call but was unable to take call. Called back and left VM informing patient of message and asked her to call back and let us know if she has a f/u with GI. * Outreach Note - Aziza Robins - 06/17/2019 12:48 PM EDT See chart notes. Patient has appt with Dr. Sergei GOMES. documented in this encounter Plan of Treatment Not on file documented as of this encounter Visit Diagnoses Not on filedocumented in this encounter Care Teams Vice President Global Digital Marketing Relationship Specialty Start Date End Date Radha Chau DO [address] [place] [place] [address] PCP - General Family Medicine 07/30/18 02/02/20 documented as of this encounter
--- OUTSIDE RECORDS SUMMARY | 2024-01-11 19:02 | XMS_ITS | Encounter Summary ---
Author Organization [facility] Address [address] [place] [id number] Care Team Providers Care Nut Blanker Operator Name Role Phone Radha Chau DO Primary Care Provider [phone] Reason for Visit * Reason Onset Date Comments Letter for School/Work 06/24/2019 Encounter Details Date Type Department Care Team (Late st Contact Info) Description 06/24/[address] [facility] FAMILY MEDICINE [address] [facility] [place] [address] Radha Chau DO [address] [facility] [place] [address] Letter for School/Work 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 [...] Telephone Encounter - Odalis Newell MA - 06/24/2019 11:29 AM EDT Informed Umm Long, she will complete message. * Telephone Encounter - Radha Chau DO - 06/24/2019 11:08 AM EDT Ok to provide letter for requested dates. * Telephone Encounter - Margot Zelaya RegSched Rep - 06/24/2019 10:50 AM EDT PT IS REQUESTING A EXCUSE FOR LAST WEEK TO COVER THE DAY S SHE WAS OFF 06/16-06/20 FAXED. FAX# [phone] PLEASE ADVISE PT @ [phone] documented in this encounter Plan of Treatment Not on file documented as of this encounter Visit Diagnoses Not on filedocumented in this encounter Care Teams Nut Blanker Operator Relationship Specialty Start Date End Date Radha Chau DO [address] [place] [address] PCP - General Family Medicine 07/30/18 02/02/20 documented as of this encounter
--- OUTSIDE RECORDS SUMMARY | 2024-01-11 19:02 | XMS_ITS | Encounter Summary ---
Author Organization [facility] Address [address] [place] [address] Care Team Providers Care Line Repairer Tower Name Role Phone Radha Chau DO Primary Care Provider [phone] Reason for Visit * Reason Comments Vomiting, diarrhea x yesterday (fever l ast night 102.4) Covid test neg 3wks ago Depression, more stress-aski ng to stay off work (Psych-Joyce Stephens had her out of work fo r 3d bc of panic attacks, today is last day Next f/u is in 2wks) Encounter Details Date Type Department Care Team (Latest Contact Info) Description 08/30/2019 3:30 PM EDT Office Visit [facility] [address] [place] [address] Radha Chau DO [address] [place] [place] [address] Viral gastroenteritis (Primary Dx); Anxiety; Moderate episode of recurrent major depressive disorder 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 Tobacco Use Types Packs/Day Years [...] Sign Reading Time Taken Comments Blood Pressure 106/84 08/30/2019 3:33 PM EDT Pulse 102 08/30/2019 3:33 PM EDT Temperature 36.4 ??C (97.5 ??F) 08/30/2019 3:33 PM ED T Respiratory Rate 18 08/30/2019 3:33 PM EDT Oxygen Saturation 98% 08/30/2019 3:33 PM EDT Inhaled Oxygen Concentration - - Weight 143 kg (315 lb) 08/30/2019 3:33 PM EDT Height 167.6 cm (5' 5.98 ) 08/30/2019 3:33 PM ED T Body Mass Index 50.87 08/30/2019 3:33 PM EDT documented in this encounter Patient Instructions * Patient Instructions* Radha Chau DO - 08/30/2019 3:30 PM EDT Images from the original note were not included. Go to the nearest ER or return to clinic if symptoms worsen, fever/chill develop Viral Gastroenteritis, Adult Viral gastroenteritis is also known as the stomach flu. This condition may affect your stomach, small intestine, and large intestine. It can cause sudden watery diarrhea, fever, and vomiting. This condition is caused by many different viruses. These viruses can be passed from person to person very easily (are contagious). Diarrhea and vomiting can make you feel weak and cause you to become dehydrated. You may not be able to keep fluids down. Dehydration can make you tired and thirsty, cause you to have a dry mouth, and decrease how often you urinate. It is important to replace the fluids that you lose from diarrhea and vomiting. What are the causes? Gastroenteritis is caused by many viruses, including rotavirus and norovirus. Norovirus is the mostcommon cause in adults. You can get sick after being exposed to the viruses from other people. You can also get sick by: ?? Eating food, drinking water, or touching a surface contaminated with one of these viruses. ?? Sharing utensils or other personal items with an infected person. What increases the risk? You are more likely to develop this condition if you: ?? Have a weak body defense system (immune system). ?? Live with one or more children who are younger than 2 years old. ?? Live in a long term. ?? Travel on cruise ships. What are the signs or symptoms? Symptoms of this condition start suddenly 1-3 days after exposure to a virus. Symptoms may last fora few days or for as long as a week. Common symptoms include watery diarrhea and vomiting. Other symptoms include: ?? Fever. ?? Headache. ?? Fatigue. ?? Pain in the abdomen. ?? Chills. ?? Weakness. ?? Nausea. ?? Muscle aches. ?? Loss of appetite. How is this diagnosed? This condition is diagnosed with a medical history and physical exam. You may also have a stool test to check for viruses or other infections. How is this treated? This condition typically goes away on its own. The focus of treatment is to prevent dehydration andrestore lost fluids (rehydration). This condition may be treated with: ?? An oral rehydration solution (ORS) to replace important salts and minerals (electrolytes) in your body. Take this if told by your health care provider. This is a drink that is sold at pharmacies and retail stores. ?? Medicines to help with your symptoms. ?? Probiotic supplements to reduce symptoms of diarrhea. ?? Fluids given through an IV, if dehydration is severe. Older adults and people with other diseases or a weak immune system are at higher risk for dehydration. Follow these instructions at home: Eating and drinking ?? Take an ORS as told by your health care provider. ?? Drink clear fluids in small amounts as you are able. Clear fluids include: ? Water. ? Ice chips. ? Diluted fruit juice. ? Low-calorie sports drinks. ?? Drink enough fluid to keep your urine pale yellow. ?? Eat small amounts of healthy foods every 3-4 hours as you are able. This may include whole grains, fruits, vegetables, lean meats, and yogurt. ?? Avoid fluids that contain a lot of sugar or caffeine, such as energy drinks, sports drinks, and soda. ?? Avoid spicy or fatty foods. ?? Avoid alcohol. General instructions ?? Wash your hands often, especially after having diarrhea or vomiting. If soap and water are not available, use hand record clerk salesperson. ?? Make sure that all people in your household wash their hands well and often. ?? Take jbke-spw-mltwuvm and prescription medicines only as told by your health care provider. ?? Rest at home while you recover. ?? Watch your condition for any changes. ?? Take a warm bath to relieve any burning or pain from frequent diarrhea episodes. ?? Keep all follow-up visits as told by your health care provider. This is important. Contact a health care provider if you: ?? Cannot keep fluids down. ?? Have symptoms that get worse. ?? Have new symptoms. ?? Feel light-headed or dizzy. ?? Have muscle cramps. Get help right away if you: ?? Have chest pain. ?? Feel extremely weak or you faint. ?? See blood in your vomit. ?? Have vomit that looks like coffee grounds. ?? Have bloody or black stools or stools that look like tar. ?? Have a severe headache, a stiff neck, or both. ?? Have a rash. ?? Have severe pain, cramping, or bloating in your abdomen. ?? Have trouble breathing or you are breathing very quickly. ?? Have a fast heartbeat. ?? Have skin that feels cold and clammy. ?? Feel confused. ?? Have pain when you urinate. ?? Have signs of dehydration, such as: ? Dark urine, very little urine, or no urine. ? Cracked lips. ? Dry mouth. ? Sunken eyes. ? Sleepiness. ? Weakness. Summary ?? Viral gastroenteritis is also known as the stomach flu. It can cause sudden watery diarrhea, fever, and vomiting. ?? This condition can be passed from person to person very easily (is contagious). ?? Take an ORS if told by your health care provider. This is a drink that is sold at [employer]. ?? Wash your hands often, especially after having diarrhea or vomiting. If soap and water are not available, use hand record clerk salesperson. This information is not intended to replace advice given to you by your health care provider. Make sure you discuss any questions you have with your health care provider. Document Released: 02/06/2006 Document Revised: 12/12/2018 Document Reviewed: 12/12/2018 [employer] Patient Education ?? 2020 [employer]. documented in this encounter Progress Notes * Radha Chau DO - 08/30/2019 3:30 PM EDT Lola Erwin is a 28 y.o. female. Chief Complaint Patient presents with ??? Vomiting, diarrhea x yesterday (fever last night 102.4) Covid test neg 3wks ago ??? Depression, more stress-asking to stay off work (Psych-Joyce Stephens had her out of work for 3d bc of panic attacks, today is last day Next f/u is in 2wks) History of Present Illness She developed nausea, vomiting, and diarrhea yesterday, with a fever of 102.4 last night. Fever hasresolved as of today. Still experiencing nausea, vomiting, and diarrhea today. Has been treating with phenergan, which works but makes her sleepy. She has had 5-10 episodes of watery diarrhea today. No blood present in stool. Her son has similar symptoms. No cough, loss of taste or smell. Recently diagnosed with eosinophilic esophagitis. Scheduled to follow-up with gastroenterology in the near future. She is seeing psychiatry, Joyce Stephens. Recently put her on Rexulti, although Ms. Pastor states thatmaria del carmen hasn't tolerated this well in the past. Since being on this treatment, anxiety and stress have been worse. She has been having panic attacks and feeling overwhelmed. Not sleeping well, however has no drive to get up. Her boss recommended that she take a couple of weeks off from work. Her psychiatrist did give her some time off from work, only 3 days. She is asking that I extend this time for her. The following portions of the patient's history were reviewed and updated as appropriate: allergies, current medications, past family history, past medical history, past social history, past surgicalhistory and problem list. Review of Systems Constitutional: Positive for fever. Negative for chills and fatigue. HENT: Negative. Eyes: Negative. Respiratory: Negative for cough, chest tightness and shortness of breath. Cardiovascular: Negative for chest pain and palpitations. Gastrointestinal: Positive for nausea and vomiting. Skin: Negative for rash. Neurological: Negative for light-headedness, headache and confusion. Hematological: Negative for adenopathy. Does not bruise/bleed easily. Psychiatric/Behavioral: Positive for stress. The patient is nervous/anxious. Objective Physical Exam Constitutional: She is oriented to person, place, and time. She appears well- developed and well-nourished. No distress. HENT: Head: Normocephalic and atraumatic. Right Ear: External ear normal. Left Ear: External ear normal. Nose: Nose normal. Eyes: Conjunctivae are normal. Neck: Neck supple. Cardiovascular: Normal rate, regular rhythm and normal heart sounds. Pulmonary/Chest: Effort normal and breath sounds normal. No respiratory distress. She has no wheezes. She has no rhonchi. Abdominal: Soft. Bowel sounds are normal. There is no tenderness. There is no guarding. Musculoskeletal: She exhibits no deformity. Neurological: She is alert and oriented to person, place, and time. Skin: Skin is warm and dry. She is not diaphoretic. Psychiatric: Her behavior is normal. She exhibits a depressed mood. Nursing note and vitals reviewed. Assessment/Plan Ivon was seen today for vomiting, diarrhea and depression, more stress-asking to stay off work. Diagnoses and all orders for this visit: Viral gastroenteritis Anxiety Moderate episode of recurrent major depressive disorder (CMS/HCC) Continue phenergan, has rx at home. Increase oral fluid intake as tolerated to prevent dehydration. Will provide temporary leave from work x 2 weeks. She must follow up with psychiatry regarding depression, anxiety, and sleep disturbance. Go to ER if symptoms worsen. documented in this encounter Plan of Treatment Not on file documented as of this encounter Visit Diagnoses Diagnosis Viral gastroenteritis- Primary Intestinal infection due to other organism, NEC Anxiety Anxiety state, unspecified Moderate episode of recurrent major depressive disorder documented in this encounter Care Teams Line Repairer Tower Relationship Specialty Start Date End Date Radha Chau DO [address] [place] [address] PCP - General Family Medicine 07/30/18 02/02/20 documented as of this encounter
--- OUTSIDE RECORDS SUMMARY | 2024-01-11 19:02 | XMS_ITS | Encounter Summary ---
Author Organization [facility] Address [address] [place] [address] Care Team Providers Care Real Estate Coordinator Name Role Phone Radha Chau DO Primary Care Provider [phone] Reason for Visit * Reason Onset Date Comments Appointment 07/17/2019 Encounter Details Date Type Department Care Team (Late st Contact Info) Description 07/17/2019 Telephone [facility] [address] [address] Radha Chau DO [address] [address] Appointment 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 Tobacco Use Types Packs/Day Years [...] Telephone Encounter - Odalis Newell MA - 07/17/2019 11:22 AM EDT Informed Sofia and she will call pt and sched the fu as well as request records. * Telephone Encounter - Alysa Mays - 07/17/2019 11:15 AM EDT PT CALLED AND IS NEEDING TO SCHEDULE AN ER FOLLOW UP PLEASE ADVISE AT: [phone] documented in this encounter Plan of Treatment Not on file documented as of this encounter Visit Diagnoses Not on filedocumented in this encounter Care Teams Real Estate Coordinator Relationship Specialty Start Date End Date Radha Chau DO [address] [place] [address] PCP - General Family Medicine 07/30/18 02/02/20 documented as of this encounter
--- OUTSIDE RECORDS SUMMARY | 2024-01-11 19:02 | XMS_ITS | Encounter Summary ---
Author Organization [facility] Address [address] [place] [address] Care Team Providers Care International Manager Name Role Phone Hermila Orlando APRN Primary Care Provider [phone] Reason for Visit * Reason Onset Date Comments COVID/SAME DAY APPT REQUEST 08/16/2019 Encounter Details Date Type Department Care Team (Late st Contact Info) Description 08/16/2019 Telephone [facility] [address] [place] [address] Radha Chau, [address] [place] [address] COVID/SAME DAY APPT REQUEST 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 Tobacco Use Types Packs/Day Years [...] encounter Miscellaneous Notes * Telephone Encounter - Kirsten Pink RegSched Rep - 08/16/2019 8:31 AM EDT ERROR documented in this encounter Plan of Treatment Not on file documented as of this encounter Visit Diagnoses Not on filedocumented in this encounter Additional Health Concerns Infection Onset Date Last Indicated Resolved Time COVID Screen (preop/placement) 08/16/2019 08/16/2019 08/17/2019 8:35 PM EDT COVID Screen (preop/placement) 2019 2019 10/23/2019 7:55 PM EDT COVID Screen (preop/placement) 02/03/2020 02/03/2020 02/04/2020 11:36 AM EST COVID Screen (preop/placement) 04/05/2020 04/05/2020 04/06/2020 5:25 PM EST COVID Screen (preop/placement) 09/02/2020 09/02/2020 09/02/2020 7:52 PM EDT COVID Screen (preop/placement) 12/07/2020 12/07/2020 12/07/2020 4:31 PM EDT COVID (rule out) 03/22/2021 03/22/2021 03/29/2021 9:08 PM EST COVID Screen (preop/placement) 04/05/2021 04/11/2021 04/11/2021 9:03 PM EST COVID Screen (preop/placement) 04/29/2021 08/16/2021 08/16/2021 10:45 PM EDT documented as of this encounter Care Teams International Manager Relationship Specialty Start Date End Date Hermila Orlando APRN [address] [place] [address] PCP - General Nurse Practitioner 12/07/20 documented as of this encounter
--- OUTSIDE RECORDS SUMMARY | 2024-01-11 19:02 | XMS_ITS | Encounter Summary ---
Author Organization [facility] Address [address] [place] [id number] Care Team Providers Care Box Toe Flanger Stitchdowns Name Role Phone Radha Chau DO Primary Care Provider [phone] Reason for Visit * Reason Onset Date Comments NEW PRESCRIPTION 08/21/2019 Encounter Details Date Type Department Care Team (Late st Contact Info) Description 08/21/2019 Telephone [facility] [address] [place] [address] Radha Chau DO [address] [place] [address] NEW PRESCRIPTION 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 Tobacco Use Types Packs/Day Years [...] encounter Miscellaneous Notes * Telephone Encounter - Zulma Peter MA - 08/22/2019 9:10 AM EDT Patient aware * Telephone Encounter - Radha Chau DO - 08/21/2019 5:51 PM EDT Resent to pharmacy. * Telephone Encounter - Odalis Newell MA - 08/21/2019 10:04 AM EDT Just send in generic order for glucometer and in comments put, choose glucometer of insurance choice. * Telephone Encounter - Sandro Ahuja RegSched Rep - 08/21/2019 8:34 AM EDT Provider: RADHA CHAU Caller:ARIADNE MARTINEZ Relationship to Patient:PT/SELF Pharmacy: [facility] Reason for Call: PT GLUCOMETER IS NOT COVERED UNDER HER INSURANCE([employer]) AND SHE NEEDS A DIFFERENT RX FOR A GLUCOMETER THAT IS COVERED PLEASE ADVISE When was the patient last seen: When did it start: Where is it located: Characteristics of symptom/severity: Timing- Is it constant or intermittent: What makes it worse: What makes it better: What therapies/medications have you tried: documented in this encounter Plan of Treatment Not on file documented as of this encounter Visit Diagnoses Diagnosis Elevated hemoglobin A1c- Primary Other abnormal blood chemistry Type 2 diabetes mellitus without complication, without long-term current use of insulin documented in this encounter Care Teams Box Toe Flanger Stitchdowns Relationship Specialty Start Date End Date Radha Chau DO [place] [address] PCP - General Family Medicine 07/30/18 02/02/20 documented as of this encounter
--- OUTSIDE RECORDS SUMMARY | 2024-01-11 19:02 | XMS_ITS | Encounter Summary ---
Author Organization [facility] Address [address] [place] [id number] Care Team Providers Care Dry Transfer Man Name Role Phone sIac Radhaimani Baptiste DO Primary Care Provider [phone] Reason for Referral * Consultation (Routine) - Closed Specialty Diagnoses / Procedures Referred By Mikayla t Referred To Contact Gastroenterology Diagnoses RLQ abdominal pain Mary Metcalf PA [address] [place] [address] Phone: tel: fax: Jacky Damon, FACE HARDENER Phone: tel: fax:[phone] Referral ID Status Reason Start Date Expiration Date V isits Requested Visits Authorized [id number] Closed Specialty Services Required 06/14/2019 06/13/2020 1 1 Scheduling Instructions 4 weeks * Surgical (Routine) - Closed Specialty Diagnoses / Procedures Referred By Contac t Referred To Contact Diagnoses RLQ abdominal pain Esophageal dysphagia Procedures Case Request Virgil Wallace MD [address] [address] Phone: tel: fax: Referral ID Status Reason Start Date Expiration Date Visits Re quested Visits Authorized [id number] Closed 06/12/2019 06/11/2020 1 1 Reason for Visit * Reason Comments Abdominal Pain * Auth/Cert Specialty Diagnoses / Procedures Referred By Mikayla t Referred To Contact Diagnoses RLQ abdominal pain Procedures na Referral ID Status Reason Start Date Expiration Date Visits Re quested Visits Authorized [id number] 1 1 Encounter Details Date Type Department Care Team (Late st Contact Info) Description 06/12/2019 10:59 AM EDT - 06/14/2019 12:35 PM EDT Emergency [address] [place] [id number] Magnus Wilburn MD [address] [facility] [place] [address] Zoe Kelly, DO [address] [place], [place] [id number] Kathia Augustin MD [address] [facility] [address] [place], [place] [id number] Virgil Wallace MD [address] [facility] [address] [place] [address] RLQ abdominal pain (Primary Dx); Nausea vomiting and diarrhea; Esophageal dysphagia; Epigastric pain Discharge Disposition: Home or Self Care Social [...] Sign Reading Time Taken Comments Blood Pressure 141/85 06/14/2019 11:00 AM EDT Pulse 85 06/14/2019 11:00 AM EDT Temperature 37 ??C (98.6 ??F) 06/14/2019 11:00 AM EDT Respiratory Rate 17 06/14/2019 11:00 AM EDT Oxygen Saturation 93% 06/14/2019 3:00 AM EDT Inhaled Oxygen Concentration - - Weight 140 kg (308 lb) 06/13/2019 2:29 PM EDT Height 167.6 cm (5' 6 ) 06/13/2019 2:29 PM EDT Body Mass Index 49.71 06/13/2019 2:29 PM EDT documented in this encounter Discharge Summaries * Kathia Augustin MD - 06/14/2019 12:35 PM EDT Images from the original note were not included. [facility] Medicine Services Clinical Decision Unit DISCHARGE SUMMARY Patient Name: Ivon Erwin : 1990 Admission Date and Time: 06/12/2019 10:59 AM Discharge Date and Time: 06/14/19 Primary Care Physician: Radha Chau, DO Hospital Course Active Hospital Problems Diagnosis POA ??? RLQ abdominal pain [R10.31] Yes ??? Esophageal stenosis [K22.2] Yes ??? Appendicolith [K38.9] Yes ??? Dysphagia [R13.10] Unknown ??? Diarrhea [R19.7] Unknown ??? Vomiting [R11.10] Unknown ??? Esophageal dysphagia [R13.10] Unknown ??? HSV-1 (herpes simplex virus 1) infection [B00.9] Yes ??? Bipolar 1 disorder (CMS/HCC) [F31.9] Yes ??? Borderline personality disorder (CMS/HCC) [F60.3] Yes Resolved Hospital Problems No resolved problems to display. Brief CDU Course: Ivon Erwin is a 28 y.o. female who presented to the emergency department with recurrent persistent symptoms of abdominal pain with nausea and vomiting. She has a known appendicolith without evidence of surrounding stranding or inflammation. She was seen by general surgery Dr. Frias as well as GI. She underwent colonoscopy and EGD on 06/13/2019. 06/12 - I asked the patient what she thought was causing her symptoms and she stated she thought it was the appendicolith. I inquired about last menstrual cycle and ovulation. The patient states she does not have her rightovary as it was surgically removed previously. She does not believe the pain is related to her menstrual cycle in any way. 06/13 -patient had esophageal dilation secondary to mild stenosis during her EGD on 06/13/2019. She also had a colonoscopy with biopsy. There were no gross abnormalities to explain her symptoms. She istolerating regular diet has not had any emesis. She continues to complain of mild nausea that is relieved with antiemetics. She continues to complain of pain although the Toradol has significantly improved her pain. She requested prescription for [place] for home use. I discussed her care with GI andgeneral surgery. Dr. Dougherty has cleared her for discharge home. She is agreeable to the plan. ?? [place] Discharge Recommendations: Follow-up with PCP for recurrent abdominal pain and biopsy results from colonoscopy Follow-up with general surgery as needed if pain persists Discharge Evaluation Vital Signs: Temp: [97.1 ??F (36.2 ??C)-98.7 ??F (37.1 ??C)] 98.6 ??F (37 ??C) Heart Rate: [76-85] 85 Resp: [14-20] 17 BP: (108-142)/(65-100) 141/85 Physical Exam: Constitutional: No acute distress, awake, alert, nontoxic, obese body habitus Eyes: Pupils equal, sclerae anicteric, no conjunctival injection HENT: NCAT, mucous membranes moist Neck: Supple, no thyromegaly, no lymphadenopathy Respiratory: Clear to auscultation bilaterally, good effort, nonlabored respirations Cardiovascular: RRR Gastrointestinal: Positive bowel sounds, soft, mildly tender especially in the right lower quadrant, mildly distended, however obese Musculoskeletal: No peripheral edema, normal muscle tone for age Psychiatric: Appropriate affect, good insight and judgement, cooperative Neurologic: Oriented x 3, movements symmetric BUE and BLE, Cranial Nerves grossly intact, speech clear and fluent Skin: No rashes, no jaundice, no petechiae, no mottling Pertinent and/or Most Recent Results Results from last 7 days Lab Units 06/13/19 0842 06/13/19 0454 06/12/19 1802 06/12/19 1149 06/12/19 1123 06/10/19 1401 WBC 10*3/mm3 5.13 -- -- -- 6.28 6.04 HEMOGLOBIN g/dL 12.7 -- -- -- 13.3 13.6 HEMATOCRIT % 37.1 -- -- -- 39.2 39.7 PLATELETS 10*3/mm3 233 -- -- -- 273 274 SODIUM mmol/L -- 138 -- 138 -- 137 POTASSIUM mmol/L -- 4.1 3.8 4.2 -- 4.2 CHLORIDE mmol/L -- 106 -- 105 -- 103 CO2 mmol/L -- 19.0* -- 22.0 -- 22.0 BUN mg/dL -- 3* -- 6 -- 7 CREATININE mg/dL -- 0.60 -- 0.57 -- 0.68 GLUCOSE mg/dL -- 105* -- 129* -- 179* CALCIUM mg/dL -- 8.8 -- 9.2 -- 9.2 Results from last 7 days Lab Units 06/12/19 1149 06/10/19 1401 BILIRUBIN mg/dL 0.3 0.3 ALK PHOS U/L 65 72 ALT (SGPT) U/L 23 28 AST (SGOT) U/L 17 29 Invalid input(s): TG, LDLCALC, LDLREALC Results from last 7 days Lab Units 06/10/19 1401 TROPONIN T ng/mL <0.010 Brief Urine Lab Results (Last result in the past 365 days) Color Clarity Blood Leuk Est Nitrite Protein CREAT Urine HCG 06/12/19 2211 Negative Microbiology Results Abnormal None Imaging Results (All) Procedure Component Value Units Date/Time CT Abdomen Pelvis With Contrast [[id number]] Collected: 06/12/19 1334 Updated: 06/13/19 0959 Narrative: EXAMINATION: CT ABDOMEN AND PELVIS WITH CONTRAST-06/12/2019: INDICATION: Worsening RLQ pain. TECHNIQUE: 5 mm post-IV contrast portal venous phase and delayed venous phase images through the abdomen and pelvis. The radiation dose reduction device was turned on for each scan per the ALARA (As Low as Reasonably Achievable) protocol. COMPARISON: 06/10/[address] scan. FINDINGS: The included lower lungs appear grossly clear. There is expected degree of fatty liver change for body habitus. The gallbladder is surgically absent. The spleen is not enlarged. No significant abnormalities are noted of the pancreas, adrenal glands, or kidneys. No upper abdominal ascites, adenopathy, or acute inflammatory focus is seen. Large and small bowel loops are normal in caliber. Regarding the lower abdomen and pelvis, there are a few scattered right lower quadrant lymph nodes a little more numerous than typically seen, the largest of which is approximately 13 mm, the remaining nodes well under 1 cm in diameter, which may reflect mild reactive lymphadenopathy. The appendix is clearly visible and appears normal except for a small calcification proximally. There is no evidence of any associated inflammation. The terminal ileum and cecum appear normal. The uterus appears to be surgically absent. The right ovary appears small. The left ovary contains a water-density 3.2 cm cyst. No intrapelvic free fluid or acute inflammatory change is identified. Impression: 1. Shotty right lower quadrant lymph nodes, somewhat more numerous than typically seen, but only one of which is enlarged. No evidence of associated inflammatory focus. 2. Small appendicolith, but appendix is normal in size and otherwise normal in appearance. No visible inflammation. 3. Approximately 3 cm left ovarian cyst noted. E: 06/12/2019 This report was finalized on 06/13/2019 9:[address] Jadon Hinton MD. Plan for Follow-up of Pending Labs/Results: Biopsy results are pending at the time of discharge from colonoscopy. Order Current Status Tissue Pathology Exam In process Discharge Medications and Follow-Up Discharge Medications Changes to Medications Instructions Start Date HYDROcodone-acetaminophen 5-325 MG per tablet Commonly known as: NORCO What changed: ?? when to take this ?? reasons to take this 1 tablet, Oral, Every 6 Hours PRN Continue These Medications Instructions Start Date escitalopram 20 MG tablet Commonly known as: LEXAPRO No dose, route, or frequency recorded. famotidine 20 MG tablet Commonly known as: PEPCID 20 mg, Oral, 2 Times Daily pantoprazole 40 MG EC tablet Commonly known as: Protonix 40 mg, Oral, Daily promethazine 25 MG tablet Commonly known as: PHENERGAN 25 mg, Oral, Every 6 Hours PRN sucralfate 1 g tablet Commonly known as: CARAFATE 1 g, Oral, 4 Times Daily valACYclovir 1000 MG tablet Commonly known as: Valtrex 1,000 mg, Oral, Daily Future Appointments Date Time Provider Department Center 06/28/2019 8:00 AM Radha Chau DO [facility] None Additional Instructions for the Follow-ups that You Need to Schedule Discharge Follow-up with PCP As directed Currently Documented PCP: Radha Chau DO PCP Follow Up Details: abd pain 2 weeks Time Spent on Discharge: 35 minutes Electronically signed by Kathia Augustin MD, 06/14/19, 12:35 PM. documented in this encounter Discharge Instructions * Attachments The following attachments cannot be sent through Care Everywhere. * Acetaminophen; Hydrocodone tablets or capsules ([place]oz[place]) documented in this encounter Medications at Time of Discharge sucralfate (CARAFATE) 1 g tabletIndications :Non-intractable vomiting with nausea, unspecified vomiting type Take 1 tablet by mouth 4 (Four) Times a Day for 5 days. 60 tablet 06/11/2019 0 escitalopram (LEXAPRO) 20 MG tablet Take 20 mg by mouth Daily. 05/29/2019 1 famotidine (PEPCID) 20 MG tablet Take 20 mg by mouth 2 (Two) Times a Day. 0 HYDROcodone-aceta minophen (NORCO) 5-325 MG per tabletIndications :Epigastric pain Take 1 tablet by mouth Every 6 (Six) Hours As Needed for Moderate Pain or Severe Pain . 15 tablet 06/14/2019 0 pantoprazole (Protonix) 40 MG EC tabletIndications :Odynophagia,Esop hageal dysphagia,Gastroe sophageal reflux disease, esophagitis presence not specified Take 1 tablet by mouth Daily. 30 tablet 1 06/05/2019 0 promethazine (PHENERGAN) 25 MG tabletIndications :Non-intractable vomiting with nausea, unspecified vomiting type Take 1 tablet by mouth Every 6 (Six) Hours As Needed for Nausea or Vomiting. 20 tablet 1 06/11/2019 0 valACYclovir (VALTREX) 1000 MG tabletIndications :HSV (herpes simplex virus) infection Take 1 tablet by mouth Daily. 90 tablet 1 03/08/2019 1 documented as of this encounter Progress Notes * Mary Metcalf PA - 06/14/2019 12:35 PM EDT GI Daily Progress Note Subjective: Chief Complaint: Follow up right lower quadrant pain Feels improved today. Ate majority of lunch tray. Dysphagia is improved. Objective: BP 141/85 (BP Location: Right arm, Patient Position: Lying) Pulse 85 Temp 98.6 ??F (37 ??C) (Oral) Resp 17 Ht 167.6 cm (66 ) Wt (!) 140 kg (308 lb) SpO2 93% BMI 49.71 kg/m?? Physical Exam Constitutional: She is oriented to person, place, and time. Cardiovascular: Normal rate and regular rhythm. Pulmonary/Chest: Effort normal and breath sounds normal. No respiratory distress. Abdominal: Soft. Bowel sounds are normal. She exhibits no distension. There is no tenderness. Neurological: She is alert and oriented to person, place, and time. Skin: Skin is warm and dry. Psychiatric: Her behavior is normal. Nursing note and vitals reviewed. Lab Lab Results Component Value Date WBC 5.13 06/13/2019 HGB 12.7 06/13/2019 HGB 13.3 06/12/2019 HGB 13.6 06/10/2019 MCV 88.3 06/13/2019 PLT 233 06/13/2019 Lab Results Component Value Date GLUCOSE 105 (H) 06/13/2019 BUN 3 (L) 06/13/2019 CREATININE 0.60 06/13/2019 EGFRIFNONA 117 06/13/2019 EGFRIFAFRI 137 03/12/2019 BCR 5.0 (L) 06/13/2019 NA 138 06/13/2019 K 4.1 06/13/2019 CO2 19.0 (L) 06/13/2019 CALCIUM 8.8 06/13/2019 PROTENTOTREF 7.0 03/12/2019 ALBUMIN 3.90 06/12/2019 ALKPHOS 65 06/12/2019 BILITOT 0.3 06/12/2019 ALT 23 06/12/2019 AST 17 06/12/2019 Assessment: Esophageal dysphagia s/p empiric dilation Esophagitis, biopsied. GERD Right lower quadrant pain, improved. Plan: >>> Discontinue Carafate >>> Continue daily PPI >>> Follow up esophageal biopsies >>> [place] with Jacky Damon APRN [place] [facility] [place]. Patient was previously prescribed Amitriptyline for right lower quadrant myofascial pain. Patient is unsure if she took this. Can reassess and consider resuming at follow up . NAM Coppola 06/14/19 12:36 Cosigned by Virgil Guerra MD at 06/14/2019 5:35 PM EDT Associated attestation - Virgil Guerra MD - 06/14/2019 5:35 PM EDT I have reviewed this documentation and agree. * Frantz Rosa MD - 06/14/2019 11:20 AM EDT General Surgery Daily Progress Note Subjective: Tolerating PO. Objective: BP 141/85 (BP Location: Right arm, Patient Position: Lying) Pulse 85 Temp 98.6 ??F (37 ??C) (Oral) Resp 17 Ht 167.6 cm (66 ) Wt (!) 140 kg (308 lb) SpO2 93% BMI 49.71 kg/m?? General Appearance: NAD Eyes: Anicteric Neck: Trachea midline Cardiovascular: RRR without murmur nor rub Lungs: Bilateral respirations unlabored Abdomen: Soft, minimal tenderness, no HSM Extremities: No cyanosis or edema Skin: No obvious rashes Neurologic: awake and conversant Imaging Results (Last 24 Hours) No results found for the last 24 hours. CBC: Results from last 7 days Lab Units 06/13/19 0842 WBC 10*3/mm3 5.13 HEMOGLOBIN g/dL 12.7 HEMATOCRIT % 37.1 PLATELETS 10*3/mm3 233 CMP: Results from last 7 days Lab Units 06/13/19 0454 06/12/19 1149 SODIUM mmol/L 138 -- 138 POTASSIUM mmol/L 4.1 < > 4.2 CHLORIDE mmol/L 106 -- 105 CO2 mmol/L 19.0* -- 22.0 BUN mg/dL 3* -- 6 CREATININE mg/dL 0.60 -- 0.57 CALCIUM mg/dL 8.8 -- 9.2 BILIRUBIN mg/dL -- -- 0.3 ALK PHOS U/L -- -- 65 ALT (SGPT) U/L -- -- 23 AST (SGOT) U/L -- -- 17 GLUCOSE mg/dL 105* -- 129* < > = values in this interval not displayed. Assessment: Abdominal pain Appendicolith Plan: Her symptoms are improved but still with a bit of pain and nausea though tolerating PO. Normal ESR and WBC remains normal. I do not think that she has acute appendicitis. Okay with discharge home. Frantz Rosa MD - 06/14/2019, 11:20 * Kathia Augustin MD - 06/13/2019 2:01 PM EDT Images from the original note were not included. [facility] Medicine Services Clinical Decision Unit PROGRESS NOTE Patient Name: Ivon Erwin : 1990 Admission Date and Time: 06/12/2019 10:59 AM Primary Care Physician: Radha Chau, DO Subjective Subjective CC: Abdominal pain with nausea and vomiting HPI: Patient is a 28-year-old who presented to the emergency department with recurrent persistent symptoms of abdominal pain with nausea and vomiting. She has a known appendicolith without evidence of surrounding stranding or inflammation. She was seen by general surgery Dr. Frias as well as GI. She un derwent colonoscopy and EGD on 06/13/2019. I asked the patient what she thought was causing her symptoms and she stated she thought it was theappendicolith. I inquired about last menstrual cycle and ovulation. The patient states she does not have her rightovary as it was surgically removed previously. She does not believe the pain is related to her menstrual cycle in any way. Review of Systems General: No fever, chills, positive fatigue ENT: No sore throat, trouble swallowing or changes in vision Respiratory: No shortness of breath, cough, wheezing or fast breathing Cardiovascular: No chest pain, palpitations, dyspnea with exertion Gastrointestinal: Positive chronic nausea vomiting abdominal pain with acute exacerbation Musculoskeletal: No difficulty walking, no weakness Vascular: No cyanosis or clubbing Lymphatic: No peripheral edema, no lymphadenopathy Neurologic: No headache, confusion, dizziness Psychiatric: No changes in mood. No depression or anxiety. Objective Objective Vital Signs: Temp: [97.9 ??F (36.6 ??C)-98.5 ??F (36.9 ??C)] 98.5 ??F (36.9 ??C) Heart Rate: [78-96] 88 Resp: [14-20] 20 BP: (139-155)/(64-96) 148/96 Physical Exam: Constitutional: No acute distress, awake, alert, nontoxic, obese body habitus Eyes: Pupils equal, sclerae anicteric, no conjunctival injection HENT: NCAT, mucous membranes moist Neck: Supple, no thyromegaly, no lymphadenopathy Respiratory: Clear to auscultation bilaterally, good effort, nonlabored respirations Cardiovascular: RRR Gastrointestinal: Positive bowel sounds, soft, mildly tender especially in the right lower quadrant, mildly distended, however obese Musculoskeletal: No peripheral edema, normal muscle tone for age Psychiatric: Appropriate affect, good insight and judgement, cooperative Neurologic: Oriented x 3, movements symmetric BUE and BLE, Cranial Nerves grossly intact, speech clear and fluent Skin: No rashes, no jaundice, no petechiae, no mottling Results Reviewed: Results from last 7 days Lab Units 06/13/19 0454 SODIUM mmol/L 138 POTASSIUM mmol/L 4.1 CHLORIDE mmol/L 106 CO2 mmol/L 19.0* BUN mg/dL 3* CREATININE mg/dL 0.60 GLUCOSE mg/dL 105* CALCIUM mg/dL 8.8 Assessment/Plan Assessment / Plan Active Hospital Problems Diagnosis POA ??? RLQ abdominal pain [R10.31] Yes ??? Appendicolith [K38.9] Yes ??? Dysphagia [R13.10] Unknown ??? Diarrhea [R19.7] Unknown ??? Vomiting [R11.10] Unknown ??? Esophageal dysphagia [R13.10] Unknown ??? HSV-1 (herpes simplex virus 1) infection [B00.9] Yes ??? Bipolar 1 disorder (CMS/HCC) [F31.9] Yes ??? Borderline personality disorder (CMS/HCC) [F60.3] Yes Resolved Hospital Problems No resolved problems to display. Brief course to date: Ivon Erwin is a 28 y.o. female who presented with recurrent persistent right lower quadrant pain associated with nausea and vomiting. Plan: Recurrent persistent right lower quadrant abdominal pain with nausea and vomiting -Continue supportive care and work-up continue -General surgery consulted and following -GI consulted and did EGD and colonoscopy on 06/13/2019 Known appendicolith Esophageal dysphasia Borderline personality disorder Discharge Blueprint: 1. Pending GI recommendations after colonoscopy and EGD on 06/13/2019 2. Pending further surgery recommendations Electronically signed by Kathia Augustin MD, 06/13/19, 14:13. * Arlen Horne RN - 06/13/2019 12:05 PM EDT Discharge Planning Assessment [facility] Patient Name: Ivon Erwin Today's Date: 06/13/2019 Admit Date: 06/12/2019 Discharge Needs Assessment Row Name 06/13/19 1204 Living Environment Current Living Arrangements home/apartment/condo Discharge Needs Assessment Equipment Currently Used at Home none Equipment Needed After Discharge none Discharge Plan Row Name 06/13/19 1205 Plan Plan Home at DC Patient/Family in Agreement with Plan unable to assess Plan Comments I did not wake the pt. No DC needs identified at this time. Destination Coordination has not been started for this encounter. Durable Medical Equipment Coordination has not been started for this encounter. Dialysis/Infusion Coordination has not been started for this encounter. Home Medical Care Coordination has not been started for this encounter. Therapy Coordination has not been started for this encounter. Community Resources Coordination has not been started for this encounter. Expected Discharge Date and Time Expected Discharge Date Expected Discharge Time Jun 14, 2019 Demographic Summary No documentation. Functional Status Row Name 06/13/19 1203 Functional Status Usual Activity Tolerance good Functional Status, IADL Medications independent Meal Preparation independent Housekeeping independent Laundry independent Shopping independent Psychosocial No documentation. Abuse/Neglect No documentation. Legal No documentation. Substance Abuse No documentation. Patient Forms No documentation. Arlen Horne, RADHA documented in this encounter H&P Notes * Zoe Kelly DO - 06/12/2019 3:19 PM EDT [facility] Medicine Services HISTORY AND PHYSICAL Patient Name: Ivon Erwin : 1990 Primary Care Physician: Radha Chau DO Date of admission: 06/12/2019 Subjective Subjective Chief Complaint: RLQ pain HPI: Ivon Erwin is a 28 y.o. female with history of anxiety depression, bipolar 1, borderline disorder who presents with right lower quadrant pain that is been persistent for the last week. She is also had issues with vomiting, reflux, dysphagia over the last few months. Patient states she has beenon a liquid diet and still has issues with vomiting. I did speak to patient's mother who stated that patient has been having difficulty keeping food down for quite some time. Swallow study as well asEGD had been ordered but are currently pending as an outpatient. Patient states diarrhea also started yesterday. Looking back in chart patient does have a history of chronic diarrhea per 1 PCP note. States she is having 4 episodes of diarrhea since yesterday. She denies fevers, cough, shortness of breath. Denies history of tobacco, alcohol use or drug use. Family history of colon cancer in her father atage 61. Review of Systems Gen- No fevers, chills CV- No chest pain, palpitations Resp- No cough, dyspnea GI- + N/V/D, + abd pain All other systems reviewed and are negative. Personal History Past Medical History: Diagnosis Date ??? Anxiety ??? Depression ??? Endometriosis ??? Fibroid tumor ??? Ovarian cyst Past Surgical History: Procedure Laterality Date ??? SECTION ??? CHOLECYSTECTOMY ??? DILATATION AND CURETTAGE ??? HYSTERECTOMY Partial ??? TONSILLECTOMY ??? TUBAL ABDOMINAL LIGATION Family History: family history is not on file. Otherwise pertinent FHx was reviewed and unremarkable. Family history of colon cancer in father age 61 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: reports that she has never smoked. She has never used smokeless tobacco. She reports that she does not drink alcohol or use drugs. 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 Narrative ??? Not on file Medications: Available home medication information reviewed. (Not in a hospital admission) No Known Allergies Objective Objective Vital Signs: Temp: [97.8 ??F (36.6 ??C)-98 ??F (36.7 ??C)] 98 ??F (36.7 ??C) Heart Rate: [82-85] 85 Resp: [16-20] 16 BP: (148-188)/(88-117) 148/88 Physical Exam Constitutional: Awake, alert Eyes: PERRLA, sclerae anicteric, no conjunctival injection HENT: NCAT, mucous membranes moist Neck: Supple, no thyromegaly, no lymphadenopathy, trachea midline Respiratory: Clear to auscultation bilaterally, nonlabored respirations Cardiovascular: RRR, no murmurs, rubs, or gallops, palpable pedal pulses bilaterally Gastrointestinal: Positive bowel sounds, soft, tenderness in right lower quadrant , no guarding/rebound Musculoskeletal: No bilateral ankle edema, no clubbing or cyanosis to extremities Psychiatric: Appropriate affect, cooperative Neurologic: Oriented x 3, strength symmetric in all extremities, Cranial Nerves grossly intact to confrontation, speech clear Skin: No rashes Results Reviewed: I have personally reviewed current lab and radiology data. Results from last 7 days Lab Units 06/12/19 1123 WBC 10*3/mm3 6.28 HEMOGLOBIN g/dL 13.3 HEMATOCRIT % 39.2 PLATELETS 10*3/mm3 273 Results from last 7 days Lab Units 06/12/19 1149 06/10/19 1401 SODIUM mmol/L 138 137 POTASSIUM mmol/L 4.2 4.2 CHLORIDE mmol/L 105 103 CO2 mmol/L 22.0 22.0 BUN mg/dL 6 7 CREATININE mg/dL 0.57 0.68 GLUCOSE mg/dL 129* 179* CALCIUM mg/dL 9.2 9.2 ALT (SGPT) U/L 23 28 AST (SGOT) U/L 17 29 TROPONIN T ng/mL -- <0.010 Estimated Creatinine Clearance: 212.3 mL/min (by C-G formula based on SCr of 0.57 mg/dL). Brief Urine Lab Results (Last result in the past 365 days) Color Clarity Blood Leuk Est Nitrite Protein CREAT Urine HCG 06/12/19 1239 Yellow Clear Negative Negative Negative Negative Imaging Results (Last 24 Hours) Procedure Component Value Units Date/Time CT Abdomen Pelvis With Contrast [[id number]] Collected: 06/12/19 1334 Updated: 06/12/19 1426 Narrative: EXAMINATION: CT ABDOMEN AND PELVIS WITH CONTRAST-06/12/2019: INDICATION: Worsening RLQ pain. TECHNIQUE: 5 mm post-IV contrast portal venous phase and delayed venous phase images through the abdomen and pelvis. The radiation dose reduction device was turned on for each scan per the ALARA (As Low as Reasonably Achievable) protocol. COMPARISON: 06/10/[address] scan. FINDINGS: The included lower lungs appear grossly clear. There is expected degree of fatty liver change for body habitus. The gallbladder is surgically absent. The spleen is not enlarged. No significant abnormalities are noted of the pancreas, adrenal glands, or kidneys. No upper abdominal ascites, adenopathy, or acute inflammatory focus is seen. Large and small bowel loops are normal in caliber. Regarding the lower abdomen and pelvis, there are a few scattered right lower quadrant lymph nodes a little more numerous than typically seen, the largest of which is approximately 13 mm, the remaining nodes well under 1 cm in diameter, which may reflect mild reactive lymphadenopathy. The appendix is clearly visible and appears normal except for a small calcification proximally. There is no evidence of any associated inflammation. The terminal ileum and cecum appear normal. The uterus appears to be surgically absent. The right ovary appears small. The left ovary contains a water-density 3.2 cm cyst. No intrapelvic free fluid or acute inflammatory change is identified. Impression: 1. Shotty right lower quadrant lymph nodes, somewhat more numerous than typically seen, but only one of which is enlarged. No evidence of associated inflammatory focus. 2. Small appendicolith, but appendix is normal in size and otherwise normal in appearance. No visible inflammation. 3. Approximately 3 cm left ovarian cyst noted. E: 06/12/2019 Assessment/Plan Assessment & Plan Active Hospital Problems Diagnosis POA ??? RLQ abdominal pain [R10.31] Yes ??? Dysphagia [R13.10] Unknown ??? Diarrhea [R19.7] Unknown ??? Vomiting [R11.10] Unknown ??? HSV-1 (herpes simplex virus 1) infection [B00.9] Yes ??? Bipolar 1 disorder (CMS/HCC) [F31.9] Yes ??? Borderline personality disorder (CMS/HCC) [F60.3] Yes Ivon Erwin is a 28 y.o. female with history of anxiety depression, bipolar 1, borderline disorder who presents with right lower quadrant pain that is been persistent for the last week. RLQ pain Diarrhea x 1 day - uncertain etiology; CT with appendicolith however no surrounding inflammation; mildly enlarged lymph nodes in RLQ - General surgery consult - PRN pain medication - Keep NPO until surgery eval - GI PCR GERD Vomiting Dysphagia - ongoing for months; worsening per patient and mother; has been on a liquid diet -- weight has been stable - c-scope 08/08 -- no acute findings, however, poor prep - EGD 09/07 with eosinophilic esophagitis - continue pepcid, PPI, carafate - GI consult Depression Bipolar Borderline personality disorder - continue lexapro DVT prophylaxis: SCDs Daily Care Communication Due to current limited visitation policies, an attempt will be made daily to update patient's identified best [id number]) Contact: Tawny Bernstein Relation: Mother Type of communication (phone or televideo): phone Time of communication: 1530 Notes (if applicable): CODE STATUS: Code Status and Medical Interventions: Ordered at: 06/12/19 1427 Code Status: CPR Medical Interventions (Level of Support Prior to Arrest): Full Admission Status: I believe this patient meets OBSERVATION status, however if further evaluation ortreatment plans warrant, status may change. Based upon current information, I predict patient's care encounter to be less than or equal to 2 midnights. Electronically signed by Zoe Kelly DO, 06/12/19, 3:20 PM. documented in this encounter Procedure Notes * Virgil Wallace MD - 06/13/2019 3:31 PM EDT Images from the original note were not included. EGD Small erosion at GEJ. Dilated to 54 Fr . No mucosal tear or resistance Colon -exam to TI Normal mucosa. No lesions seen. Nothing to explain sx on exam REC FU path. Assess response to today's therapy documented in this encounter Consult Notes * Frantz Rosa MD - 06/12/2019 7:55 PM EDTAssociated Order(s): IP CONSULT TO GENERAL SURGERY General Surgery Consultation Note Date of Service: 06/12/2019 Ivon Llamas Erwin [id number] Referring Provider: Zoe Kelly DO Location of Consult: Hospital floor Reason for Consultation: Abdominal pain History of Present Illness: I am seeing, Ivon Erwin, in consultation for Zoe Kelly DO regarding abdominal pain. 28-year-old young lady presents with abdominal pain starting this past weekend which crescendoed on Monday. Her pain has been associated with chills, nausea, and vomiting. The pain was initially in the right lower quadrant radiating through to her back and towards her pelvis. Her CT scan done on 06/10/2019 demonstrated a normal-appearing appendix with an associated appendicolith. She was discharged from the emergency room and told to follow-up with her primary care physician. She had worsening symptoms which were present prior though now has watery non-mucousy non-bloody diarrhea. Her pain is uncha nged in the right lower quadrant. There are no other associated symptoms or modifying factors. She has undergone prior laparoscopy in [place] for low abdominal/pelvic pain. Problem List Items Addressed This Visit Digestive Dysphagia Relevant Orders Case Request (Completed) Nervous and Auditory RLQ abdominal pain - Primary Relevant Orders Case Request (Completed) Other Visit Diagnoses Nausea vomiting and diarrhea Past Medical History: Diagnosis Date ??? Anxiety ??? Depression ??? Endometriosis ??? Fibroid tumor ??? Ovarian cyst Past Surgical History: ??? SECTION ??? CHOLECYSTECTOMY ??? DILATATION AND CURETTAGE ??? HYSTERECTOMY Partial ??? TONSILLECTOMY ??? TUBAL ABDOMINAL LIGATION No Known Allergies No current facility-administered medications on file prior to encounter. Current Outpatient Medications on File Prior to Encounter Medication Sig Dispense Refill ??? escitalopram (LEXAPRO) 20 MG tablet ??? famotidine (PEPCID) 20 MG tablet Take 20 mg by mouth 2 (Two) Times a Day. ??? pantoprazole (Protonix) 40 MG EC tablet Take 1 tablet by mouth Daily. 30 tablet 1 ??? promethazine (PHENERGAN) 25 MG tablet Take 1 tablet by mouth Every 6 (Six) Hours As Needed for Nausea or Vomiting. 20 tablet 1 ??? sucralfate (CARAFATE) 1 g tablet Take 1 tablet by mouth 4 (Four) Times a Day for 5 days. 60 tablet 0 ??? valACYclovir (VALTREX) 1000 MG tablet Take 1 tablet by mouth Daily. 90 tablet 1 ??? HYDROcodone-acetaminophen (NORCO) 5-325 MG per tablet Take 1 tablet by mouth Every 8 (Eight) Hours As Needed for Severe Pain . 15 tablet 0 ??? [DISCONTINUED] cyclobenzaprine (FLEXERIL) 10 MG tablet Take 0.5-1 tablets by mouth 3 (Three) Times a Day As Needed for Muscle Spasms. 60 tablet 0 Current Facility-Administered Medications: ??? acetaminophen (TYLENOL) tablet 650 mg, 650 mg, Oral, Q4H PRN OR acetaminophen (TYLENOL) 160MG/5ML solution 650 mg, 650 mg, Oral, Q4H PRN OR acetaminophen (TYLENOL) suppository 650 mg, 650 mg, Rectal, Q4H PRN, Robin, Zoe, DO ??? calcium carbonate EX (TUMS EX) chewable tablet 750 mg, 750 mg, Oral, BID PRN, Robin, Zoe, DO ??? docusate sodium (COLACE) capsule 100 mg, 100 mg, Oral, BID PRN, Robin, Zoe, DO ??? escitalopram (LEXAPRO) tablet 20 mg, 20 mg, Oral, Daily, Robin, Zoe, DO, 20 mg at 06/12/201535 ??? [START ON 06/13/2019] famotidine (PEPCID) tablet 20 mg, 20 mg, Oral, Daily, Robin, Zoe, DO ??? HYDROcodone-acetaminophen (NORCO) 5-325 MG per tablet 1 tablet, 1 tablet, Oral, Q4H PRN, Robin, Zoe, DO ??? lactated ringers infusion, 9 mL/hr, Intravenous, Continuous, Luis Eduardo Espino MD ??? lidocaine PF 1% (XYLOCAINE) injection 0.5 mL, 0.5 mL, Injection, Once PRN, Luis Eduardo Espino MD ??? morphine injection 1 mg, 1 mg, Intravenous, Q4H PRN, 1 mg at 06/12/19 1637 AND naloxone (NARCAN) injection 0.4 mg, 0.4 mg, Intravenous, Q5 Min PRN, Zoe Kelly DO ??? ondansetron (ZOFRAN) injection 4 mg, 4 mg, Intravenous, Q6H PRN, Zoe Kelly DO ??? pantoprazole (PROTONIX) EC tablet 40 mg, 40 mg, Oral, Daily, Zoe Kelly DO, 40 mg at 06/12/19 1635 ??? [COMPLETED] YDV-QMn-QcWj-NaSulf-Na Asc-C (MOVIPREP) powder 1,000 mL, 1,000 mL, Oral, Once When Specified, 1,000 mL at 06/12/19 1819 FOLLOWED BY [START ON 06/13/2019] TNC-PUa-IkTc-NaSulf-Na Asc-C (MOVIPREP) powder 1,000 mL, 1,000 mL, Oral, Once When Specified, Virgil Wallace MD ??? sodium chloride 0.9 % flush 10 mL, 10 mL, Intravenous, PRN, Zoe Kelly DO ??? sodium chloride 0.9 % flush 10 mL, 10 mL, Intravenous, Q12H, Zoe Kelly DO ??? sodium chloride 0.9 % flush 10 mL, 10 mL, Intravenous, PRN, Zoe Kelly DO ??? sodium chloride 0.9 % flush 10 mL, 10 mL, Intravenous, Q12H, Luis Eduardo Espino MD ??? sodium chloride 0.9 % flush 10 mL, 10 mL, Intravenous, PRN, Luis Eduardo Espino MD ??? sodium chloride 0.9 % infusion, 100 mL/hr, Intravenous, Continuous, Zoe Kelly DO, Last Rate: 100 mL/hr at 06/12/19 1636, 100 mL/hr at 06/12/19 1636 ? ? sucralfate (CARAFATE) tablet 1 g, 1 g, Oral, 4x Daily AC & at Bedtime, Zoe Kelly DO,1 g at 06/12/19 1636 ??? valACYclovir (VALTREX) tablet 1,000 mg, 1,000 mg, Oral, Daily, Zoe Kelly DO, 1,000 mg at06/12/19 1636 History reviewed. No pertinent family history. 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 Socioeconomic History ??? Marital status: Single Spouse name: Not on file ??? Number of children: Not on file ??? Years of education: Not on file ??? Highest education level: Not on file Tobacco Use ??? Smoking status: Never Smoker ??? Smokeless tobacco: Never Used Substance and Sexual Activity ??? Alcohol use: No ??? Drug use: No Review of Systems: Review of Systems Constitutional: Positive for appetite change. Negative for fever. HENT: Negative for drooling, facial swelling and rhinorrhea. Eyes: Negative for photophobia and visual disturbance. Respiratory: Positive for choking. Negative for chest tightness and shortness of breath. Cardiovascular: Negative for chest pain and leg swelling. Gastrointestinal: Positive for abdominal pain, diarrhea, nausea and vomiting. Endocrine: Negative for polyphagia and polyuria. Genitourinary: Negative for difficulty urinating, dysuria, flank pain and hematuria. Musculoskeletal: Positive for back pain. Negative for arthralgias and myalgias. Skin: Negative for pallor and rash. Allergic/Immunologic: Negative for immunocompromised state. Neurological: Negative for syncope, facial asymmetry and numbness. Hematological: Negative for adenopathy. Psychiatric/Behavioral: Negative for behavioral problems, hallucinations and self-injury. Otherwise the 12 point review of systems is negative. BP 145/92 (BP Location: Left arm, Patient Position: Lying) Pulse 94 Temp 97.9 ??F (36.6 ??C) (Oral) Resp 20 Ht 167.6 cm (66 ) Wt (!) 141 kg (310 lb) SpO2 94% BMI 50.04 kg/m?? Body mass index is 50.04 kg/m??. General: She is laying in bed in no apparent distress pleasantly conversant HEENT: PER, no icterus, normal sclerae Cardiac: regular rhythm, no audible rubs Pulmonary: bilateral breath sounds, non labored Abdominal: Obese, no generalized peritonitis, tender in the right lower quadrant to deep palpation,no palpable hepatosplenomegaly Neurologic: awake, alert, no obvious focal deficits Extremities: warm, no edema Skin: no obvious rashes nor worrisome lesions seen CBC Results from last 7 days Lab Units 06/12/19 1123 WBC 10*3/mm3 6.28 HEMOGLOBIN g/dL 13.3 HEMATOCRIT % 39.2 PLATELETS 10*3/mm3 273 CMP Results from last 7 days Lab Units 06/12/19 1802 06/12/19 1149 SODIUM mmol/L -- 138 POTASSIUM mmol/L 3.8 4.2 CHLORIDE mmol/L -- 105 CO2 mmol/L -- 22.0 BUN mg/dL -- 6 CREATININE mg/dL -- 0.57 CALCIUM mg/dL -- 9.2 BILIRUBIN mg/dL -- 0.3 ALK PHOS U/L -- 65 ALT (SGPT) U/L -- 23 AST (SGOT) U/L -- 17 GLUCOSE mg/dL -- 129* Radiology Imaging Results (Last 72 Hours) Procedure Component Value Units Date/Time CT Abdomen Pelvis With Contrast [[id number]] Collected: 06/12/19 1334 Updated: 06/12/19 1426 Narrative: EXAMINATION: CT ABDOMEN AND PELVIS WITH CONTRAST-06/12/2019: INDICATION: Worsening RLQ pain. TECHNIQUE: 5 mm post-IV contrast portal venous phase and delayed venous phase images through the abdomen and pelvis. The radiation dose reduction device was turned on for each scan per the ALARA (As Low as Reasonably Achievable) protocol. COMPARISON: 06/10/[address] scan. FINDINGS: The included lower lungs appear grossly clear. There is expected degree of fatty liver change for body habitus. The gallbladder is surgically absent. The spleen is not enlarged. No significant abnormalities are noted of the pancreas, adrenal glands, or kidneys. No upper abdominal ascites, adenopathy, or acute inflammatory focus is seen. Large and small bowel loops are normal in caliber. Regarding the lower abdomen and pelvis, there are a few scattered right lower quadrant lymph nodes a little more numerous than typically seen, the largest of which is approximately 13 mm, the remaining nodes well under 1 cm in diameter, which may reflect mild reactive lymphadenopathy. The appendix is clearly visible and appears normal except for a small calcification proximally. There is no evidence of any associated inflammation. The terminal ileum and cecum appear normal. The uterus appears to be surgically absent. The right ovary appears small. The left ovary contains a water-density 3.2 cm cyst. No intrapelvic free fluid or acute inflammatory change is identified. Impression: 1. Shotty right lower quadrant lymph nodes, somewhat more numerous than typically seen, but only one of which is enlarged. No evidence of associated inflammatory focus. 2. Small appendicolith, but appendix is normal in size and otherwise normal in appearance. No visible inflammation. 3. Approximately 3 cm left ovarian cyst noted. E: 06/12/2019 Assessment: Abdominal pain Morbid obesity, BMI greater than 50 Bipolar disorder Plan: At this point her clinical presentation is not consistent with an acute appendicitis. Her symptoms began over this past weekend crescendoing on Monday. Currently she is not tachycardic and hemodynamically stable. Her abdomen demonstrates no evidence of a generalized peritonitis. Her white blood cell count over the past 48 hours has been normal without a left shift. Her urine is clear. She has had2 CT scans by greater than 24 hours, both demonstrat a normal-appearing appendix, though an appendicolith is present. There is no evidence of inflammatory stranding or dilatation of the appendix in the right lower quadrant which is well seen on both CT scans. I personally reviewed these images. Gastroenterology has seen her. Diet as tolerated. All her questions were answered and she understands. Please call with questions. Frantz Rosa MD 06/12/19 19:55 * Virgil Wallace MD - 06/12/2019 4:28 PM EDTAssociated Order(s): IP CONSULT [place] [facility] [place] Referring Provider: No ref. provider found Primary Care Provider: Radha Chau DO Reason for Consultation: Dyspepsia and dysphasia Chief complaint : right lower quadrant pain, dyspepsia, dysphasia History of present illness: Ivon Erwin is a 28 y.o. female who is admitted with right lower quadrant pain. This began Monday. It starts in her back. Goes in the right lower quadrant. Better when she is up. No fever but has chills. Patient started having diarrhea yesterday. Of note last year she had similar symptoms.: At that time was poor prep but unable get into the cecum or terminal ileum. She also has dyspepsia has been on Protonix without improvement. Has solid food dysphagia. Has had some hematemesis. She had EGD last year which was unremarkable. No hiatal hernia was mentioned. Biopsies were taken for celiacas well as eosinophilic esophagitis but are not available. This was done as an outpatient by Dr. Mai. She denies any significant weight loss. Her father was diagnosed with colon cancer at age 62. Her paternal grandmother had colon cancer as well Recent barium swallow showed a small hiatal hernia with reflux Allergies: Patient has no known allergies. Scheduled Meds: escitalopram 20 mg Oral Daily famotidine 20 mg Oral Daily pantoprazole 40 mg Oral Daily SBH-JWv-LzJq-NaSulf-Na Asc-C 1,000 mL Oral Once When Specified Followed by [START ON 06/13/2019] NGZ-UEd-EaRt-NaSulf-Na Asc-C 1,000 mL Oral Once When Specified sodium chloride 10 mL Intravenous Q12H sucralfate 1 g Oral 4x Daily AC & at Bedtime valACYclovir 1,000 mg Oral Daily Infusions: sodium chloride 100 mL/hr PRN Meds: ??? acetaminophen OR acetaminophen OR acetaminophen ??? calcium carbonate EX ??? docusate sodium ??? HYDROcodone-acetaminophen ??? Morphine AND naloxone ??? ondansetron ??? sodium chloride ??? sodium chloride Home Meds: Medications Prior to Admission Medication Sig Dispense Refill Last Dose ??? escitalopram (LEXAPRO) 20 MG tablet Past Week at Unknown time ??? famotidine (PEPCID) 20 MG tablet Take 20 mg by mouth 2 (Two) Times a Day. Past Week at Unknown time ??? pantoprazole (Protonix) 40 MG EC tablet Take 1 tablet by mouth Daily. 30 tablet 1 Past Week at Unknown time ??? promethazine (PHENERGAN) 25 MG tablet Take 1 tablet by mouth Every 6 (Six) Hours As Needed for Nausea or Vomiting. 20 tablet 1 06/12/2019 at Unknown time ??? sucralfate (CARAFATE) 1 g tablet Take 1 tablet by mouth 4 (Four) Times a Day for 5 days. 60 tablet 0 Past Week at Unknown time ??? valACYclovir (VALTREX) 1000 MG tablet Take 1 tablet by mouth Daily. 90 tablet 1 Past Week at Unknown time ??? HYDROcodone-acetaminophen (NORCO) 5-325 MG per tablet Take 1 tablet by mouth Every 8 (Eight) Hours As Needed for Severe Pain . 15 tablet 0 Unknown at Unknown time ROS: Review of Systems Constitutional: Positive for chills. Negative for appetite change, fever and unexpected weight change. HENT: Positive for trouble swallowing. Respiratory: Negative for shortness of breath. Cardiovascular: Negative for chest pain. Gastrointestinal: Positive for abdominal pain and diarrhea. All other systems reviewed and are negative. PAST MED HX: Pt has a past medical history of Anxiety, Depression, Endometriosis, Fibroid tumor, and Ovarian cyst. PAST SURG HX: Pt has a past surgical history that includes Tubal ligation; section; Dilation and curettage of uterus; Cholecystectomy; Tonsillectomy; and Hysterectomy. FAM HX: family history is not on file. SOC HX: Pt reports that she has never smoked. She has never used smokeless tobacco. She reports that she does not drink alcohol or use drugs. BP 142/82 (BP Location: Left arm, Patient Position: Lying) Pulse 78 Temp 98.3 ??F (36.8 ??C) (Oral) Resp 14 Ht 167.6 cm (66 ) Wt (!) 141 kg (310 lb) SpO2 97% BMI 50.04 kg/m?? Physical Exam Wt Readings from Last 3 Encounters: 06/12/19 (!) 141 kg (310 lb) 06/11/19 (!) 144 kg (318 lb) 06/10/19 (!) 142 kg (314 lb) ,body mass index is 50.04 kg/m??. General Well developed; morbidly obese; no acute distress. ENT Good dentition. Oral mucosa pink & moist without thrush or lesions. Neck Neck supple; trachea midline. No thyromegaly Resp CTA; no rhonchi, rales, or wheezes. Respiration effort normal CV RRR; ; no M/R/G. No lower extremity edema GI Abd soft, tender right lower quadrant no guarding rebound obese, ND, normal active bowel sounds.No HSM. No abd hernia Skin No rash; no lesions; no bruises. Skin turgor normal Musc No clubbing; no cyanosis. Psych Oriented to time, place, and person. Appropriate affect Results Review: I reviewed the patient's new clinical results. I reviewed the patient's new imaging results and agree with the interpretation. Lab Results Component Value Date WBC 6.28 06/12/2019 HGB 13.3 06/12/2019 HCT 39.2 06/12/2019 MCV 87.3 06/12/2019 PLT 273 06/12/2019 Lab Results Component Value Date GLUCOSE 129 (H) 06/12/2019 BUN 6 06/12/2019 CREATININE 0.57 06/12/2019 EGFRIFNONA 125 06/12/2019 EGFRIFAFRI 137 03/12/2019 BCR 10.5 06/12/2019 CO2 22.0 06/12/2019 CALCIUM 9.2 06/12/2019 PROTENTOTREF 7.0 03/12/2019 ALBUMIN 3.90 06/12/2019 LABIL2 1.7 03/12/2019 AST 17 06/12/2019 ALT 23 06/12/2019 CT scan per radiology report: IMPRESSION: 1. Shotty right lower quadrant lymph nodes, somewhat more numerous than typically seen, but only one of which is enlarged. No evidence of associated inflammatory focus. 2. Small appendicolith, but appendix is normal in size and otherwise normal in appearance. No visible inflammation. 3. Approximately 3 cm left ovarian cyst noted. E: 06/12/2019 ASSESSMENTS/PLANS 1. Dyspepsia 2. Dysphasia 3. Right lower quadrant pain 4. Abnormal CAT scan. 5. Family of colon cancer in father and paternal grandmother She has refractory upper GI symptoms with dysphagia. Will plan EGD dilation tomorrow. Try to obtainher path report In the right lower quadrant pain as well as adenopathy will plan for colonoscopy tomorrow with intent of her entering the terminal ileum with biopsies. She has GI panel PCR pending. Will check sed rate C-reactive protein. I discussed the patients findings and my recommendations with patient and family Unable to reach mother on Cell phone Virgil Wallace MD 06/12/19 16:29 documented in this encounter Nursing Notes * Vandana Gould, RN - 06/14/2019 2:16 AM EDT Problem: Patient Care Overview Goal: Plan of Care Review Outcome: Ongoing (interventions implemented as appropriate) Flowsheets Taken 06/14/2019 0215 Progress: no change Outcome Summary: Pt has been resting well this shift. Toradol given for pain and it really helped. VSS. Will continue to monitor. 0215 06/14/2019 Taken 06/13/20191999 Plan of Care Reviewed With: patient * Varun Subramanian RN - 06/13/2019 3:32 PM EDT Patient VSS, NPO pending EGD/Colonoscopy, JILLIAN following, IV hydration maintained, patient UAL with PRN pain medications, IV site rotated. * Fanny June RN - 06/13/2019 3:03 AM EDT VS stable. Patient continues to complain of pain in RLQ, relieved with IV pain medication. Plan forEGD and colonoscopy in the morning. Patient NPO except bowel prep. Patient has had multiple clear toned bowel movements tonight. Will continue to monitor. Problem: Patient Care Overview Goal: Plan of Care Review Outcome: Ongoing (interventions implemented as appropriate) Flowsheets Taken 06/13/2019 0303 Progress: no change Taken 06/12/20191999 Plan of Care Reviewed With: patient * Varun Subramanian RN - 06/12/2019 5:42 PM EDT Patient VSS, plan for clear liquid with bowel prep tonight, npo after midnight with colonoscopy/EGD, patient pain treated per mar. documented in this encounter ED Notes * Meño Hernandez PA - 06/12/2019 11:39 AM EDT Subjective 28-year-old female presents to the emergency department with complaints of worsening right lower quadrant and epigastric pain. The patient states that her pain began mostly as epigastric pain about 3days ago. She has had associated nausea and vomiting and is now having some diarrhea as well. She noted a small amount of blood in the vomit. The patient was seen here 3 days ago with the same complaints and had a CT scan showing an appendicolith but no inflammatory signs to suggest appendicitis. She was discharged home to return if worse. Past surgeries include partial hysterectomy, cholecystectomy, C-sections x2, D&C x2 laparoscopies x3 and tonsillectomy. Review of Systems Constitutional: Negative for fever. HENT: Negative for sore throat. Respiratory: Negative for cough and shortness of breath. Cardiovascular: Negative for chest pain. Gastrointestinal: Positive for abdominal pain and nausea. Genitourinary: Negative for dysuria. Musculoskeletal: Negative for back pain. Skin: Negative for rash. Allergic/Immunologic: Negative for immunocompromised state. Neurological: Negative for headaches. Hematological: Negative. Psychiatric/Behavioral: Negative. Past Medical History: Diagnosis Date ??? Anxiety ??? Depression ??? Endometriosis ??? Fibroid tumor ??? Ovarian cyst No Known Allergies Past Surgical History: Procedure Laterality Date ??? SECTION ??? CHOLECYSTECTOMY ??? COLONOSCOPY N/A 06/13/2019 Procedure: COLONOSCOPY; Surgeon: Virgil Wallace MD; Location: [facility]; Service: Gastroenterology; Laterality: N/A; ??? DILATATION AND CURETTAGE ??? ENDOSCOPY N/A 06/13/2019 Procedure: ESOPHAGOGASTRODUODENOSCOPY; Surgeon: Virgil Wallace MD; Location: [facility]; Service: Gastroenterology; Laterality: N/A; ??? HYSTERECTOMY Partial ??? TONSILLECTOMY ??? TUBAL ABDOMINAL LIGATION History reviewed. No pertinent family history. 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 Socioeconomic History ??? Marital status: Single Spouse name: Not on file ??? Number of children: Not on file ??? Years of education: Not on file ??? Highest education level: Not on file Tobacco Use ??? Smoking status: Never Smoker ??? Smokeless tobacco: Never Used Substance and Sexual Activity ??? Alcohol use: No ??? Drug use: No Objective Physical Exam Constitutional: She appears well-developed and well-nourished. She does not appear ill. HENT: Mouth/Throat: Oropharynx is clear and moist. Eyes: Pupils are equal, round, and reactive to light. No scleral icterus. Cardiovascular: Normal rate. Pulmonary/Chest: Effort normal. Abdominal: Normal appearance and bowel sounds are normal. She exhibits no distension. There is tenderness in the right lower quadrant. There is no rebound and no guarding. Neurological: She is alert. Skin: Skin is warm and dry. Psychiatric: She has a normal mood and affect. Procedures ED Course The pt continues with RLQ pain and is quite tender in the RLQ. She is morbidly obese. White count is normal at 6.2. Repeat CT with IV contrast redemonstrates a small appendicolith but no surrounding inflammation. There are numerous shotty lymph nodes in the RLQ. On repeat exam, she is still quite tender in the RLQ. She states she has vomited at least a dozen times in the past 24 hrs and has had diarrhea about 4 times. I think this is likely a mesenteric adenitis, but given her worsening pain the appendicolith, I think admission and surgical consult is warranted. I spoke with Dr. Rosa who advised to admit to hospitalist and keep her NPO and he will see the pt. MDM Final diagnoses: RLQ abdominal pain Nausea vomiting and diarrhea Meño Hernandez PA 06/12/19 1411 Meño Hernandez PA 06/12/19 1419 Meño Hernandez PA 06/22/19 2141 Cosigned by Magnus Wilburn MD at 06/25/2019 1:35 PM EDT Associated attestation - Magnus Wilburn MD - 06/25/2019 1:35 PM EDT For this patient encounter, I reviewed the BRUSH SANDER or PA documentation, treatment plan, and medical decision making. Magnus Wilburn MD 06/25/2019 13:35 documented in this encounter Plan of Treatment Scheduled Orders Name Type Priority Associated Diagnoses Order Schedule Gastrointestinal Panel, PCR - Stool, Per Rectum Microbiology Routine Once for 1 Occurrences starting 06/12/2019 until 06/12/2019 Scheduled Referrals Name Type Priority Associated Diagnoses Order Schedule Ambulatory Referral to Gastroenterology Outpatient Referral Routine RLQ abdominal pain Ordered: 06/14/2019 documented as of this encounter Procedures Procedure Name Priority Date/Time Associated Diagnosis Comments COLONOSCOPY 06/13/2019 3:03 PM EDT TISSUE PATHOLOGY EXAM Routine 06/13/2019 2:59 PM EDT RLQ abdominal pain Esophageal dysphagia UPPER GI ENDOSCOPY 06/13/2019 2:47 PM EDT ESOPHAGOGASTRODUODENOSCOPY 06/12 2:34 PM EDT RLQ abdominal pain Esophageal dysphagia COLONOSCOPY 06/13/2019 2:34 PM EDT RLQ abdominal pain Esophageal dysphagia SEDIMENTATION RATE Routine 06/13/2019 8:42 AM EDT CBC (NO DIFF) Routine 06/13/2019 8:42 AM EDT MAGNESIUM Routine 06/13/2019 4:54 AM EDT BASIC METABOLIC PANEL Routine 06/13/2019 4:54 AM EDT , URINE Routine 06/12/2019 10:11 PM EDT C-REACTIVE PROTEIN Routine 06/12/2019 6:02 PM EDT POTASSIUM Routine 06/12/2019 6:[address] ABDOMEN PELVIS W CONTRAST STAT 12:54 PM EDT URINALYSIS W/ MICROSCOPIC IF INDICATED (NO CULTURE) STAT 06/12/2019 12:39 PM EDT URINE DRUG SCREEN Add-On 06/12/2019 12:39 PM EDT DK GREEN TOP STAT 06/12/2019 11:49 AM EDT LIPASE STAT 06/12/2019 11:49 AM EDT COMPREHENSIVE METABOLIC PANEL STAT 11:49 AM EDT CBC WITH AUTO DIFFERENTIAL STAT 06/11 11:23 AM EDT LAVENDER TOP STAT 06/12/2019 11:23 AM EDT LIGHT BLUE TOP STAT 06/12/2019 11:23 AM EDT RAINBOW DRAW STAT 06/12/2019 11:23 AM EDT CBC AND DIFFERENTIAL STAT 06/12/2019 11:23 AM EDT documented in this encounter Results * COLONOSCOPY (06/13/2019 3:03 PM EDT) us Virgil Wallace MD INTERFACE NEEDS Final Result * Tissue Pathology Exam (06/13/2019 2:59 PM EDT) Case Report Surgical Pathology Report ? Case: [id number] ? Authorizing Provider: ??Virgil Wallace MD ?Collected: ? 06/13/2019 02:59 PM ? Ordering Location: ? [facility] ?? Received: ?06/13/2019 04:05 PM ? ENDO SUITES ? Pathologist: ? Sahil Tripp MD ? Specimens: ?? 1) - Esophagus, esophagus @ 40cm ? 2) - Esophagus, esophagus @ 30cm ? 06/14/2019 1:52 PM [facility] Clinical Information The working history is right lower quadrant abdominal pain, esophageal dysphagia. 06/14/2019 1:52 PM [facility] Final Diagnosis 1. ESOPHAGEAL BIOPSIES AT 40 CM: Chronic active gastroesophagitis with moderate eosinophilia. Negative for Davis's metaplasia, dysplasia, and neoplasia. 2. ESOPHAGUS BIOPSIES AT 30 CM: Reactive epithelial changes with marked eosinophilia compatible with eosinophilic esophagitis. See Comment. JFJ/mbc 06/14/2019 1:52 PM [facility] [employer] [facility] Comment The findings are compatible with eosinophilic esophagitis, however, that is a clinicopathologic diagnosis. Correlation with clinical history and endoscopic findings is recommended. 06/14/2019 1:52 PM EDT [facility] Gross Description Specimen 1 received in formalin labeled as esophagus biopsy at 40.0 cm and consists of a 0.5 x 0.2 x 0.1 cm fragment of amaya/pink soft tissue which is filtered and submitted entirely in block 1A. Specimen 2 received in formalin labeled as esophagus biopsy at 30.0 cm and consists of a 0.6 x 0.3 x 0.1 cm fragment of amaya/pink soft tissue which is filtered and submitted entirely in block 2A. CLB/dlb 06/14/2019 1:52 PM EDT [facility] Microscopic Description Sections from specimen 1 show gastroesophageal mucosa with chronic active inflammation. In the squamous mucosa, focally eosinophils number as many as 20 in a single HPF although this is not diffusely present. There is no evidence of intestinal metaplasia, dysplasia, or neoplasia. Sections from specimen 2 show multiple fragments of squamous epithelium with papillomatosis with basal layer hyperplasia and reactive changes including intercellular edema. Nearly all cespedes show greater than 10 eosinophils per HPF with many areas showing as many as 50 in a single HPF. The appearance would be compatible with eosinophilic esophagitis. There is no evidence of Davis's metaplasia, dysplasia, or neoplasia. 06/14/2019 1:52 PM EDT [facility] Tissue Specimen from esophagus / Unknown 06/13/2019 2:59 PM EDT 06/13/2019 4:05 PM EDT Comment:esophagus @ 40cm Tissue specimen (specimen) Esophageal structure / Unknown 06/13/2019 3:00 PM EDT 06/13/2019 4:05 PM EDT Comment:esophagus @ 30cm us Virgil Wallace MD PATHOLOGY/CYTOLOGY ORDERABLES Final Result [facility]
[address] [place] [address], * UPPER GI ENDOSCOPY (06/13/2019 2:47 PM EDT) us Virgil Wallace MD INTERFACE NEEDS Final Result * Sedimentation Rate (06/13/2019 8:42 AM EDT) Sed Rate <1 0 - 20 mm/hr 06/13/2019 9:05 AM EDT [facility] Blood Line / Unknown 06/13/2019 8: 42 AM EDT 06/13/2019 8:47 AM EDT us Virgil Wallace MD LAB BLOOD ORDERABLES Final Res ult [facility]
[address] [place] [address], * CBC (No Diff) (06/13/2019 8:42 AM EDT) Pathologist [facility] WBC 5.13 3.40 - 10.80 10*3/mm3 06/13/2019 8:52 AM EDT [facility] RBC 4.20 3.77 - 5.28 10*6/mm3 06/13/2019 8:52 AM EDT [facility] Hemoglobin 12.7 12.0 - 15.9 g/dL 06/13/2019 8:52 AM EDT [facility] Hematocrit 37.1 34.0 - 46.6 % 06/13/2019 8:52 AM EDT [facility] MCV 88.3 79.0 - 97.0 fL 06/13/2019 8:52 AM EDT [facility] MCH 30.2 26.6 - 33.0 pg 06/13/2019 8:52 AM EDT [facility] MCHC 34.2 31.5 - 35.7 g/dL 06/13/2019 8:52 AM EDT [facility] RDW 12.3 12.3 - 15.4 % 06/13/2019 8:52 AM EDT [facility] RDW-SD 39.4 37.0 - 54.0 fl 06/13/2019 8:52 AM EDT [facility] MPV 9.9 6.0 - 12.0 fL 06/13/2019 8:52 AM EDT [facility] Platelets 233 140 - 450 10*3/mm3 06/13/2019 8:52 AM EDT [facility] Blood Line / Unknown 06/13/2019 8: 42 AM EDT 06/13/2019 8:47 AM EDT [facility] BLOOD ORDERABLES Final Res ult Performing Organization Address City/[facility]/ZIP Co de Phone Number [facility]
[address] [place] [address], * Magnesium (06/13/2019 4:54 AM EDT) Magnesium 1.8 1.6 - 2.6 mg/dL 06/13/2019 6:10 AM EDT [facility] Blood Line / Unknown 06/13/2019 4: 54 AM EDT 06/13/2019 5:29 AM EDT [facility] B[facility] ORDERABLES Final Res ult Performing Organization Address City/[facility] de Phone Number [facility]
[address] [place] [address], * (ABNORMAL) Basic Metabolic Panel (06/13/2019 4:54 AM EDT) Glucose 105(H) 65 - 99 mg/dL 06/13/2019 6:26 AM EDT [facility] BUN 3(L) 6 - 20 mg/dL 06/13/2019 6:26 AM EDT [facility] Creatinine 0.60 0.57 - 1.00 mg/dL 06/13/2019 6:26 AM EDT [facility] Sodium 138 136 - 145 mmol/L 06/13/2019 6:26 AM EDT [facility] Potassium 4.1 3.5 - 5.2 mmol/L 06/13/2019 6:26 AM EDT [facility] Chloride 106 98 - 107 mmol/L 06/13/2019 6:26 AM EDT [facility] CO2 19.0(L) 22.0 - 29.0 mmol/L 06/13/2019 6:26 AM EDT [facility] Calcium 8.8 8.6 - 10.5 mg/dL 06/13/2019 6:26 AM EDT [facility] eGFR Non Amer 117 >60 mL/min/1.7 3 06/13/2019 6:26 AM EDT [facility] BUN/Creatinine Ratio 5.0(L) 7.0 - 25.0 06/13/2019 6:26 AM EDT [facility] Anion Gap 13.0 5.0 - 15.0 mmol/L 06/13/2019 6:26 AM EDT [facility] Blood Line / Unknown 06/13/2019 4: 54 AM EDT 06/13/2019 5:29 AM EDT Narrative [facility] - 06/13/2019 6:26 AM EDT GFR Normal >60 Chronic Kidney Disease <60 Kidney Failure <15 Zoe Kelly DO LAB BLOOD ORDERABLES Final Res ult [facility]
[address] [place] [address], * , Urine - Urine, Clean Catch (06/12/2019 10:11 PM EDT) HCG, Urine QL Negative Negative DISK DIFFUSION 06/12/2019 10:18 PM EDT [facility] Urine Urine specimen collection, clean catch / Unknown Collection / Unknown 06/12/2019 10:11 PM EDT 06/12/2019 10:11 PM EDT [employer] URINE ORDERABLES Final Result [facility]
[address] [place] [address], * Potassium (06/12/2019 6:02 PM EDT) Potassium 3.8 3.5 - 5.2 mmol/L 06/12/2019 6:23 PM EDT [facility] Blood Line / Unknown 06/12/2019 6: 02 PM EDT 06/12/2019 6:08 PM EDT Luis Eduardo Espino MD LAB BLOOD ORDERABLES Final Resu lt Performing Organization Address City/[facility]/ZIP Co de Phone Number [facility]
[address] [place] [address], * C-reactive Protein (06/12/2019 6:02 PM EDT) C-Reactive Protein 0.14 0.00 - 0.50 mg/dL 06/12/2019 6:31 PM EDT [facility] Blood Line / Unknown 06/12/2019 6: 02 PM EDT 06/12/2019 6:08 PM EDT Virgil Wallace MD LAB BLOOD ORDERABLES Final Res ult Performing Organization Address [facility] de Phone Number [facility]
[address] [place] [address], * CT Abdomen Pelvis With Contrast (06/12/2019 12:54 PM EDT) Anatomical Region Laterality Modality Abdomen, Pelvis N/A Computed Tomogra phy 06/12/2019 1:34 PM EDT Impressions 06/13/2019 9:56 AM EDT 1. Shotty right lower quadrant lymph nodes, somewhat more numerous than typically seen, but only one of which is enlarged. No evidence of associated inflammatory focus. 2. Small appendicolith, but appendix is normal in size and otherwise normal in appearance. No visible inflammation. 3. Approximately 3 cm left ovarian cyst noted. D: ??06/12/2019 E: ??06/12/2019 This report was finalized on 06/13/2019 9:[address] Jadon Hinton MD. Narrative 06/13/2019 9:56 AM EDT EXAMINATION: CT ABDOMEN AND PELVIS WITH CONTRAST-06/12/2019: INDICATION: Worsening RLQ pain. TECHNIQUE: 5 mm post-IV contrast portal venous phase and delayed venous phase images through the abdomen and pelvis. The radiation dose reduction device was turned on for each scan per the ALARA (As Low as Reasonably Achievable) protocol. COMPARISON: 06/10/[address] scan. FINDINGS: The included lower lungs appear grossly clear. There is expected degree of fatty liver change for body habitus. The gallbladder is surgically absent. The spleen is not enlarged. No significant abnormalities are noted of the pancreas, adrenal glands, or kidneys. No upper abdominal ascites, adenopathy, or acute inflammatory focus is seen. Large and small bowel loops are normal in caliber. Regarding the lower abdomen and pelvis, there are a few scattered right lower quadrant lymph nodes a little more numerous than typically seen, the largest of which is approximately 13 mm, the remaining nodes well under 1 cm in diameter, which may reflect mild reactive lymphadenopathy. The appendix is clearly visible and appears normal except for a small calcification proximally. There is no evidence of any associated inflammation. The terminal ileum and cecum appear normal. The uterus appears to be surgically absent. The right ovary appears small. The left ovary contains a water-density 3.2 cm cyst. No intrapelvic free fluid or acute inflammatory change is identified. Procedure Note Jadon Hinton MD - 06/13/2019 EXAMINATION: CT ABDOMEN AND PELVIS WITH CONTRAST-06/12/2019: INDICATION: Worsening RLQ pain. TECHNIQUE: 5 mm post-IV contrast portal venous phase and delayed venous phase images through the abdomen and pelvis. The radiation dose reduction device was turned on for each scan per the ALARA (As Low as Reasonably Achievable) protocol. COMPARISON: 06/10/[address] scan. FINDINGS: The included lower lungs appear grossly clear. There is expected degree of fatty liver change for body habitus. The gallbladder is surgically absent. The spleen is not enlarged. No significant abnormalities are noted of the pancreas, adrenal glands, or kidneys. No upper abdominal ascites, adenopathy, or acute inflammatory focus is seen. Large and small bowel loops are normal in caliber. Regarding the lower abdomen and pelvis, there are a few scattered right lower quadrant lymph nodes a little more numerous than typically seen, the largest of which is approximately 13 mm, the remaining nodes well under 1 cm in diameter, which may reflect mild reactive lymphadenopathy. The appendix is clearly visible and appears normal except for a small calcification proximally. There is no evidence of any associated inflammation. The terminal ileum and cecum appear normal. The uterus appears to be surgically absent. The right ovary appears small. The left ovary contains a water-density 3.2 cm cyst. No intrapelvic free fluid or acute inflammatory change is identified. IMPRESSION: 1. Shotty right lower quadrant lymph nodes, somewhat more numerous than typically seen, but only one of which is enlarged. No evidence of associated inflammatory focus. 2. Small appendicolith, but appendix is normal in size and otherwise normal in appearance. No visible inflammation. 3. Approximately 3 cm left ovarian cyst noted. E: 06/12/2019 This report was finalized on 06/13/2019 9:[address] Jadon Hinton MD. us Meño BROWNING IMG CT ORDERABLES Final Resu lt * Urine Drug Screen - Urine, Clean Catch (06/12/2019 12:39 PM EDT) THC, Screen, Urine Negative Negative 2019 4:12 PM EDT [facility] Phencyclidine (PCP), Urine Negative Negative 06/12/2019 4:12 PM EDT [facility] Cocaine Screen, Urine Negative Negative 06/12/2019 4:12 PM EDT [facility] Methamphetamine, Ur Negative Negative 06/11 4:12 PM EDT [facility] Opiate Screen Negative Negative 06/12/2019 4:12 PM EDT [facility] Amphetamine Screen, Urine Negative Negative 06/12/2019 4:12 PM EDT [facility] Benzodiazepine Screen, Urine Negative Negative 06/12/2019 4:12 PM EDT [facility] Tricyclic Antidepressants Screen Negative Negative 06/12/2019 4:12 PM EDT [facility] Methadone Screen, Urine Negative Negative 06/12/2019 4:12 PM EDT [facility] Barbiturates Screen, Urine Negative Negative 06/12/2019 4:12 PM EDT [facility] Oxycodone Screen, Urine Negative Negative 06/12/2019 4:12 PM EDT [facility] Propoxyphene Screen Negative Negative 06/11 4:12 PM EDT [facility] Buprenorphine, Screen, Urine Negative Negative 06/12/2019 4:12 PM EDT [facility] Urine Urine specimen collection, clean catch / Unknown Collection / Unknown 06/12/2019 12:39 PM EDT 06/12/2019 12:49 PM EDT [facility] - 06/12/2019 4:12 PM EDT Cutoff For Drugs Screened: Amphetamines ? 500 ng/ml Barbiturates ? 200 ng/ml Benzodiazepines ?150 ng/ml Cocaine ?150 ng/ml Methadone ?200 ng/ml Opiates ?100 ng/ml Phencyclidine ? 25 ng/ml THC ? 50 ng/ml Methamphetamine ?500 ng/ml Tricyclic Antidepressants ??300 ng/ml Oxycodone ?100 ng/ml Propoxyphene ? 300 ng/ml Buprenorphine ? 10 ng/ml The normal value for all drugs tested is negative. This report includes unconfirmed screening results, with the cutoff values listed, to be used for medical treatment purposes only. ??Unconfirmed results must not be used for non-medical purposes such as employment or legal testing. ??Clinical consideration should be applied to any drug of abuse test, particularly when unconfirmed results are used. ?? Zoe Kelly DO URINE ORDERABLES Final Result [facility]
[address] [place] [address], * (ABNORMAL) Urinalysis With Microscopic If Indicated (No Culture) - Urine, Clean Catch (06/12/2019 12:39 PM EDT) Color, UA Yellow Yellow, Straw 06/12/2019 12:53 PM EDT [facility] Appearance, UA Clear Clear 06/12/2019 12:53 PM EDT [facility] pH, UA 8.5(H) 5.0 - 8.0 06/12/2019 12:53 PM EDT [facility] Specific [place], UA 1.022 1.001 - 1.030 06/12/2019 12:53 PM EDT [facility] Glucose, UA Negative Negative 06/12/2019 12:53 PM EDT [facility] Ketones, UA Negative Negative 06/12/2019 12:53 PM EDT [facility] Bilirubin, UA Negative Negative 06/12/2019 12:53 PM EDT [facility] Blood, UA Negative Negative 06/12/2019 12:53 PM EDT [facility] Protein, UA Negative Negative 06/12/2019 12:53 PM EDT [facility] Leuk Esterase, UA Negative Negative 06/12/2019 12:53 PM EDT [facility] Nitrite, UA Negative Negative 06/12/2019 12:53 PM EDT [facility] Urobilinogen, UA 0.2 E.U./dL 0.2 - 1.0 E.U./dL 06/12/2019 12:53 PM EDT [facility] Urine Urine specimen collection, clean catch / Unknown Collection / Unknown 06/12/2019 12:39 PM EDT 06/12/2019 12:49 PM EDT Narrative [facility] - 06/12/2019 12:53 PM EDT Urine microscopic not indicated. us Magnus Wilburn MD URINE ORDERABLES Final Result Performing Organization Address [facility]/ZIP Co de Phone Number [facility]
[address] [place] [address], [place] [phone] * Green Top (Gel) (06/12/2019 11:49 AM EDT) Extra Tube Hold for add-ons. 06/12/2019 1:00 PM EDT [facility] Comment:Auto resulted. Blood Line / Unknown 06/12/2019 11 :49 AM EDT 06/12/2019 11:54 AM EDT us Magnus Wilburn MD LAB BLOOD ORDER ONLY Final Re sult Performing Organization Address [facility]/ZIP Co de Phone Number [facility]
[address] [place] [address], [place] [phone] * Lipase (06/12/2019 11:49 AM EDT) Lipase 23 13 - 60 U/L 06/12/2019 12:23 PM EDT [facility] Blood Line / Unknown 06/12/2019 11 :49 AM EDT 06/12/2019 11:54 AM EDT us Magnus Wilburn MD LAB BLOOD ORDERABLES Final Re sult Performing Organization Address City/[facility]/ZIP Co de Phone Number [facility]
[address] [place] [address], [place] [phone] * (ABNORMAL) Comprehensive Metabolic Panel (06/12/2019 11:49 AM EDT) Glucose 129(H) 65 - 99 mg/dL 06/12/2019 12:23 PM EDT [facility] BUN 6 6 - 20 mg/dL 06/12/2019 12:23 PM EDT [facility] Creatinine 0.57 0.57 - 1.00 mg/dL 06/12/2019 12:23 PM EDT [facility] Sodium 138 136 - 145 mmol/L 06/12/2019 12:23 PM EDT [facility] Potassium 4.2 3.5 - 5.2 mmol/L 06/12/2019 12:23 PM EDT [facility] Chloride 105 98 - 107 mmol/L 06/12/2019 12:23 PM EDT [facility] CO2 22.0 22.0 - 29.0 mmol/L 06/12/2019 12:23 PM EDT [facility] Calcium 9.2 8.6 - 10.5 mg/dL 06/12/2019 12:23 PM EDT [facility] Total Protein 6.9 6.0 - 8.5 g/dL 06/12/2019 12:23 PM EDT [facility] Albumin 3.90 3.50 - 5.20 g/dL 06/12/2019 12:23 PM EDT [facility] ALT (SGPT) 23 1 - 33 U/L 06/12/2019 12:23 PM EDT [facility] AST (SGOT) 17 1 - 32 U/L 06/12/2019 12:23 PM T [facility] Alkaline Phosphatase 65 39 - 117 U/L 06/12/2019 12:23 PM EDT [facility] Total Bilirubin 0.3 0.2 - 1.2 mg/dL 06/12/2019 12:23 PM EDT [facility] eGFR Non Amer 125 >60 mL/min/1.7 3 06/12/2019 12:23 PM EDT [facility] Globulin 3.0 gm/dL 06/12/2019 12:23 PM EDT [facility] A/G Ratio 1.3 g/dL 06/12/2019 12:23 PM EDT [facility] BUN/Creatinine Ratio 10.5 7.0 - 25.0 06/12/2019 12:23 PM EDT [facility] Anion Gap 11.0 5.0 - 15.0 mmol/L 06/12/2019 12:23 PM EDT [facility] Blood Line / Unknown 06/12/2019 11 :49 AM EDT 06/12/2019 11:54 AM EDT Narrative [facility] - 06/12/2019 12:23 PM EDT GFR Normal >60 Chronic Kidney Disease <60 Kidney Failure <15 Magnus Wilburn MD LAB BLOOD ORDERABLES Final Re sult [facility]
[address] [place] [address], * (ABNORMAL) CBC Auto Differential (06/12/2019 11:23 AM EDT) WBC 6.28 3.40 - 10.80 10*3/mm3 06/12/2019 11:49 AM EDT [facility] RBC 4.49 3.77 - 5.28 10*6/mm3 06/12/2019 11:49 AM EDT [facility] Hemoglobin 13.3 12.0 - 15.9 g/dL 06/12/2019 11:49 AM EDT [facility] Hematocrit 39.2 34.0 - 46.6 % 06/12/2019 11:49 AM EDT [facility] MCV 87.3 79.0 - 97.0 fL 06/12/2019 11:49 AM EDT [facility] MCH 29.6 26.6 - 33.0 pg 06/12/2019 11:49 AM EDT [facility] MCHC 33.9 31.5 - 35.7 g/dL 06/12/2019 11:49 AM EDT [facility] RDW 12.1(L) 12.3 - 15.4 % 06/12/2019 11:49 AM EDT [facility] RDW-SD 38.5 37.0 - 54.0 fl 06/12/2019 11:49 AM [facility] MPV 10.3 6.0 - 12.0 fL 06/12/2019 11:49 AM [facility] Platelets 273 140 - 450 10*3/mm3 06/12/2019 11:49 AM [facility] Neutrophil % 58.9 42.7 - 76.0 % 06/12/2019 11:49 AM [facility] Lymphocyte % 30.9 19.6 - 45.3 % 06/12/2019 11:49 AM [facility] Monocyte % 5.4 5.0 - 12.0 % 06/12/2019 11:49 AM [facility] Eosinophil % 3.8 0.3 - 6.2 % 06/12/2019 11:49 AM [facility] Basophil % 0.8 0.0 - 1.5 % 06/12/2019 11:49 AM [facility] Immature Grans % 0.2 0.0 - 0.5 % 06/12/2019 11:49 AM [facility] Neutrophils, Absolute 3.70 1.70 - 7.00 10*3/mm3 06/12/2019 11:49 AM [facility] Lymphocytes, Absolute 1.94 0.70 - 3.10 10*3/mm3 06/12/2019 11:49 AM [facility] Monocytes, Absolute 0.34 0.10 - 0.90 10*3/mm3 06/12/2019 11:49 AM [facility] Eosinophils, Absolute 0.24 0.00 - 0.40 10*3/mm3 06/12/2019 11:49 AM [facility] Basophils, Absolute 0.05 0.00 - 0.20 10*3/mm3 06/12/2019 11:49 AM [facility] Immature Grans, Absolute 0.01 0.00 - 0.05 10*3/mm3 06/12/2019 11:49 AM [facility] nRBC 0.0 0.0 - 0.2 /100 WBC 06/12/2019 11:49 AM EDT [facility] Blood Venipuncture / Unknown 06/12/2019 11:23 AM EDT 06/12/2019 11:26 AM EDT us Magnus Wilburn MD LAB BLOOD ORDERABLES Final Re sult Performing Organization Address [facility] Co de Phone Number [facility]
[address] [place] [address], [place] [phone] * Lavender Top (06/12/2019 11:23 AM EDT) Extra Tube hold for add-on 06/12/2019 12:30 PM EDT [facility] Comment:Auto resulted Blood Venipuncture / Unknown 06/12/2019 11:23 AM EDT 06/12/2019 11:26 AM EDT us Magnus Wilburn MD LAB BLOOD ORDER ONLY Final Re sult Performing Organization Address [facility] Co de Phone Number [facility]
[address] [place] [address], [place] [phone] * Light Blue Top (06/12/2019 11:23 AM EDT) Extra Tube hold for add-on 06/12/2019 12:30 PM EDT [facility] Comment:Auto resulted Blood Venipuncture / Unknown 06/12/2019 11:23 AM EDT 06/12/2019 11:26 AM EDT us Magnus Wilburn MD LAB BLOOD ORDER ONLY Final Re sult Performing Organization Address [facility] Co de Phone Number [facility]
[address] [place] [address], [place] [phone] documented in this encounter Visit Diagnoses Diagnosis RLQ abdominal pain- Primary Abdominal pain, right lower quadrant RLQ abdominal pain Abdominal pain, right lower quadrant Nausea vomiting and diarrhea Esophageal dysphagia Dysphagia, pharyngoesophageal phase Epigastric pain Abdominal pain, epigastric Bipolar 1 disorder Borderline personality disorder HSV-1 (herpes simplex virus 1) infection Herpes simplex without mention of complication Dysphagia Diarrhea Vomiting Vomiting alone Esophageal dysphagia Dysphagia, pharyngoesophageal phase Appendicolith Esophageal stenosis Stricture and stenosis of esophagus documented in this encounter Admitting Diagnoses Diagnosis RLQ abdominal pain Abdominal pain, right lower quadrant Esophageal dysphagia Dysphagia, pharyngoesophageal phase documented in this encounter Administered Medications Inactive Administered Medications - up to 3 most recent administrations Medication Order MAR Action Action Date Dose Rate Site acetaminophen (TYLENOL) 160 MG/5ML solution 650 mg 650 mg, Oral, Every 4 Hours PRN, Mild Pain, Starting on Mon06/12/19 at 1532, Do not exceed 4 grams of acetaminophen in a 24 hr period. If given for pain, use the following pain scale: Mild Pain = Pain Score of 1-3, CPOT 1-2 Moderate Pain = Pain Score of 4-6, CPOT 3-4 Severe Pain = Pain Score of 7-10, CPOT 5-8 acetaminophen (TYLENOL) suppository 650 mg 650 mg, Rectal, Every 4 Hours PRN, Mild Pain, Starting on Mon06/12/19 at 1532, Do not exceed 4 grams of acetaminophen in a 24 hr period. If given for pain, use the following pain scale: Mild Pain = Pain Score of 1-3, CPOT 1-2 Moderate Pain = Pain Score of 4-6, CPOT 3-4 Severe Pain = Pain Score of 7-10, CPOT 5-8 acetaminophen (TYLENOL) tablet 650 mg 650 mg, Oral, Every 4 Hours PRN, Mild Pain, Starting on Mon06/12/19 at 1532, Do not exceed 4 grams of acetaminophen in a 24 hr period. If given for pain, use the following pain scale: Mild Pain = Pain Score of 1-3, CPOT 1-2 Moderate Pain = Pain Score of 4-6, CPOT 3-4 Severe Pain = Pain Score of 7-10, CPOT 5-8 escitalopram (LEXAPRO) tablet 20 mg 20 mg, Oral, Daily, First dose on Mon06/12/19 at 1630, Caution: Look alike/sound alike drug alert. Given 06/14/2019 8:34 AM EDT 20 mg Given 06/13/2019 9:23 AM EDT 20 mg Given 06/12/2019 4:35 PM EDT 20 mg famotidine (PEPCID) injection 20 mg 20 mg, Intravenous, Once, On Mon06/12/19 at 1137, For 1 dose, Dilute to 10 mL total volume and give IV push over 2 minutes. Given 06/12/2019 1:02 PM EDT 20 m g famotidine (PEPCID) tablet 20 mg 20 mg, Oral, Daily, First dose on Mon06/12/19 at 1630 Given 06/12/2019 4:35 PM EDT 20 mg famotidine (PEPCID) tablet 20 mg 20 mg, Oral, Daily, First dose (after last modification) on Coty 06/13/19 at 0900 Given 06/13/2019 9:23 AM EDT 20 mg HYDROcodone-acetaminophen (NORCO) 5-325 MG per tablet 1 tablet 1 tablet, Oral, Every 4 Hours PRN, Moderate Pain, Starting on Mon06/12/19 at 1532, For 10 days, [ALEX] Do not exceed 4 grams of acetaminophen in a 24 hr period. If given for pain, use the following pain scale: Mild Pain = Pain Score of 1-3, CPOT 1-2 Moderate Pain = Pain Score of 4-6, CPOT 3-4 Severe Pain = Pain Score of 7-10, CPOT 5-8 Given 06/14/2019 12:07 PM EDT 1 tablet Given 06/13/2019 5:15 PM EDT 1 tablet Given 06/13/2019 9:23 AM EDT 1 tablet HYDROmorphone (DILAUDID) injection 0.5 mg 0.5 mg, Intravenous, Once, On Mon06/12/19 at 1411, For 1 dose, If given for pain, use the following pain scale: Mild Pain = Pain Score of 1-3, CPOT 1-2 Moderate Pain = Pain Score of 4-6, CPOT 3-4 Severe Pain = Pain Score of 7-10, CPOT 5-8 Given 06/12/2019 2:19 PM EDT 0.5 mg iopamidol (ISOVUE-300) 61 % injection 100 mL 100 mL, Intravenous, Once in Imaging, On Mon06/12/19 at 1250, For 1 dose Given 06/12/2019 12:46 PM EDT 94 mL ketorolac (TORADOL) injection 30 mg 30 mg, Intravenous, Every 6 Hours PRN, Severe Pain, Starting on Coty 06/13/19 at 2103, For 5 days, {BKC} If given for pain, use the following pain scale: Mild Pain = Pain Score of 1-3, CPOT 1-2 Moderate Pain = Pain Score of 4-6, CPOT 3-4 Severe Pain = Pain Score of 7-10, CPOT 5-8 Given 06/14/2019 6:38 AM EDT 30 mg Given 06/13/2019 9:11 PM EDT 30 mg lactated ringers infusion 9 mL/hr, Intravenous, Continuous, Starting on Mon06/12/19 at 1815, May switch to NS IV at KVO if renal / if indicated New Bag 06/13/2019 2:47 PM EDT 9 mL/hr 9 mL/hr lactated ringers infusion 20 mL/hr, Intravenous, Continuous, Starting on Coty 06/13/19 at 1448 morphine injection 1 mg 1 mg, Intravenous, Every 4 Hours PRN, Moderate Pain, Starting on Mon06/12/19 at 1532, For 10 days, If given for pain, use the following pain scale: Mild Pain = Pain Score of 1-3, CPOT 1-2 Moderate Pain = Pain Score of 4-6, CPOT 3-4 Severe Pain = Pain Score of 7-10, CPOT 5-8 Given 06/14/2019 10:32 AM EDT 1 mg Given 06/13/2019 6:01 PM EDT 1 mg Given 06/13/2019 11:12 AM EDT 1 mg naloxone (NARCAN) injection 0.4 mg 0.4 mg, Intravenous, Every 5 Minutes PRN, Respiratory Depression, Starting on Mon06/12/19 at 1532, If respiratory rate is less than 8 breaths/minute or patient is difficult to arouse stop any narcotics and contact physician. Administer slow IV push. Repeat as ordered until patient's respiratory rate is greater than 12 breaths/minute. ondansetron (ZOFRAN) injection 4 mg 4 mg, Intravenous, Once, On Mon06/12/19 at 1137, For 1 dose Given 06/12/2019 1:02 PM EDT 4 mg ondansetron (ZOFRAN) injection 4 mg 4 mg, Intravenous, Once, On Mon06/12/19 at 1411, For 1 dose Given 06/12/2019 2:19 PM EDT 4 mg ondansetron (ZOFRAN) injection 4 mg 4 mg, Intravenous, Every 6 Hours PRN, Nausea, Vomiting, Starting on Mon06/12/19 at 1532, If BOTH ondansetron (ZOFRAN) and promethazine (PHENERGAN) are ordered use ondansetron first and THEN promethazine IF ondansetron is ineffective. Given 06/14/2019 8:34 AM EDT 4 mg Given 06/13/2019 9:12 PM EDT 4 mg Given 06/13/2019 5:14 AM EDT 4 mg pantoprazole (PROTONIX) EC tablet 40 mg 40 mg, Oral, Daily, First dose on Mon06/12/19 at 1545, Swallow whole; do not crush, split, or chew. Given 06/14/2019 6:34 AM EDT 40 mg Given 06/13/2019 5:14 AM EDT 40 mg Given 06/12/2019 4:35 PM EDT 40 mg VVI-DJf-VqWj-NaSulf-Na Asc-C (MOVIPREP) powder 1,000 mL 1,000 mL, Oral, Once When Specified, On Mon06/12/19 at 1800, For 1 dose, Give first dose of MoviPrep kit at 1800 followed by second dose at 0400 Given 06/12/2019 6:19 PM EDT 1,000 mL UTX-YIs-OjKb-NaSulf-Na Asc-C (MOVIPREP) powder 1,000 mL 1,000 mL, Oral, Once When Specified, On Mon06/13/19 at 0400, For 1 dose, Second dose of MoviPrep kit give at 0400 Given 06/13/2019 4:45 AM EDT 1,000 mL sodium chloride 0.9 % bolus 1,000 mL 1,000 mL, Intravenous, at 2,000 mL/hr, Administer over 0.5 Hours, Once, On Mon06/12/19 at 1137, For 1 dose New Bag 06/12/2019 1:01 PM EDT 1,000 mL 2000 mL/hr sodium chloride 0.9 % bolus 1,000 mL 1,000 mL, Intravenous, at 1,000 mL/hr, Administer over 1 Hours, Once, On Mon06/12/19 at 1412, For 1 dose New Bag 06/12/2019 2:19 PM EDT 1,000 mL 1000 mL/hr sodium chloride 0.9 % flush 10 mL 10 mL, Intravenous, As Needed, Line Care, Starting on Mon06/12/19 at 1103 sodium chloride 0.9 % flush 10 mL 10 mL, Intravenous, Every 12 Hours Scheduled, First dose on Mon06/12/19 at 2100 Given 06/14/2019 8:35 AM EDT 10 mL Given 06/13/2019 8:40 PM EDT 10 mL Given 06/12/2019 8:25 PM EDT 10 mL sodium chloride 0.9 % flush 10 mL 10 mL, Intravenous, Every 12 Hours Scheduled, First dose on Mon06/12/19 at 2100 Given 06/13/2019 9:25 AM EDT 10 mL Given 06/12/2019 8:22 PM EDT 10 mL sodium chloride 0.9 % flush 10 mL 10 mL, Intravenous, As Needed, Line Care, Starting on Mon06/12/19 at 1722 Given 06/13/2019 11:12 AM EDT 10 mL sodium chloride 0.9 % infusion 100 mL/hr, Intravenous, Continuous, Starting on Mon06/12/19 at 1630 Currently Infusing 06/14/2019 5:51 AM EDT 100 mL/hr 100 mL/hr Currently Infusing 06/14/2019 2:55 AM EDT 100 mL/hr 100 m L/hr Currently Infusing 06/14/2019 12:49 AM EDT 100 mL/hr 100 mL/hr sucralfate (CARAFATE) tablet 1 g 1 g, Oral, 4 Times Daily Before Meals & Nightly, First dose on Mon06/12/19 at 1730, Take on an empty stomach. For nasogastric administration: 1. Remove the cap and plunger from a [address] the sucralfate tablet inside the syringe 3. Replace the plunger so that minimal airspace exists around the tablet 4. Draw up approximately 20 mL water into the syringe 5. Replace the syringe cap 6. Allow the syringe to stand for ~5 minutes, shaking occasionally 7. Shake the suspension and administer directly from the syringe into the tube Flush tube before and after administration Given 06/14/2019 11:15 AM EDT 1 g Given 06/14/2019 6:34 AM EDT 1 g Given 06/13/2019 8:40 PM EDT 1 g valACYclovir (VALTREX) tablet 1,000 mg 1,000 mg, Oral, Daily, First dose on Mon06/12/19 at 1630, For 5 doses, Caution: Look alike/sound alike drug alert, Indications: ProphylaxisIndications:Prophylaxis Given 06/14/2019 8:34 AM EDT 1,000 mg Given 06/13/2019 9:23 AM EDT 1,000 mg Given 06/12/2019 4:36 PM EDT 1,000 mg documented in this encounter Active and Recently Administered Medications Times are shown in EDT. Scheduled Medication Order 06/12/2019 06/13/2019 06/14/2019 escitalopram (LEXAPRO) tablet 20 mg 20 mg, Oral, Daily, First dose on Mon06/12/19 at 1630, Caution: Look alike/sound alike drug alert. 1635 (Given - Provider: Varun Subramanian RN) 0923 (Given - Provider: Varun Subramanian RN) 0834 (Given - Provider: Anna Suero RN) famotidine (PEPCID) injection 20 mg (COMPLETED) 20 mg, Intravenous, Once, On Mon06/12/19 at 1137, For 1 dose, Dilute to 10 mL total volume and give IV push over 2 minutes. 1302 (Given - Provider: Anika Bruno, Corporate Logistics Manager) famotidine (PEPCID) tablet 20 mg (CANCELED) 20 mg, Oral, Daily, First dose on Mon06/12/19 at 1630 1635 (Given - Provider: Varun Subramanian RN) famotidine (PEPCID) tablet 20 mg (CANCELED) 20 mg, Oral, Daily, First dose (after last modification) on Coty 06/13/19 at 0900 0923 (Given - Provider: Varun Subramanian RN) HYDROmorphone (DILAUDID) injection 0.5 mg (COMPLETED) 0.5 mg, Intravenous, Once, On Mon06/12/19 at 1411, For 1 dose, If given for pain, use the following pain scale: Mild Pain = Pain Score of 1-3, CPOT 1-2 Moderate Pain = Pain Score of 4-6, CPOT 3-4 Severe Pain = Pain Score of 7-10, CPOT 5-8 1419 (Given - Provider: Anika Bruno, Corporate Logistics Manager) iopamidol (ISOVUE-300) 61 % injection 100 mL (COMPLETED) 100 mL, Intravenous, Once in Imaging, On Mon06/12/19 at 1250, For 1 dose 1246 (Given - Provider: Beverly Bustillos) ondansetron (ZOFRAN) injection 4 mg (COMPLETED) 4 mg, Intravenous, Once, On Mon06/12/19 at 1137, For 1 dose 1302 (Given - Provider: Anika Bruno, Corporate Logistics Manager) ondansetron (ZOFRAN) injection 4 mg (COMPLETED) 4 mg, Intravenous, Once, On Mon06/12/19 at 1411, For 1 dose 1419 (Given - Provider: Anika Bruno, Corporate Logistics Manager) pantoprazole (PROTONIX) EC tablet 40 mg 40 mg, Oral, Daily, First dose on Mon06/12/19 at 1545, Swallow whole; do not crush, split, or chew. 1635 (Given - Provider: Varun Subramanian RN) 0514 (Given - Provider: Fanny June, RADHA) 0634 (Given - Provider: Vandana Gould RN) LFZ-ANx-XjUl-NaSulf-Na Asc-C (MOVIPREP) powder 1,000 mL (COMPLETED)(Linked Group 1) 1,000 mL, Oral, Once When Specified, On Mon06/12/19 at 1800, For 1 dose, Give first dose of MoviPrep kit at 1800 followed by second dose at 0400 1819 (Given - Provider: Varun Subramanian RN) IPK-RYi-OfJw-NaSulf-Na Asc-C (MOVIPREP) powder 1,000 mL (COMPLETED)(Linked Group 1) 1,000 mL, Oral, Once When Specified, On Coty 06/13/19 at 0400, For 1 dose, Second dose of MoviPrep kit give at 0400 0445 (Given - Provider: Fanny June RN) sodium chloride 0.9 % bolus 1,000 mL (COMPLETED) 1,000 mL, Intravenous, at 2,000 mL/hr, Administer over 0.5 Hours, Once, On Mon06/12/19 at 1137, For 1 dose 1301 (New Bag - Provider: Anika Bruno, Corporate Logistics Manager)1345 (Stopped - Provider: Farzaneh Pro RN) sodium chloride 0.9 % bolus 1,000 mL (COMPLETED) 1,000 mL, Intravenous, at 1,000 mL/hr, Administer over 1 Hours, Once, On Mon06/12/19 at 1412, For 1 dose 1419 (New Bag - Provider: Anika Bruno, Corporate Logistics Manager) sodium chloride 0.9 % flush 10 mL 10 mL, Intravenous, Every 12 Hours Scheduled, First dose on Mon06/12/19 at 2100 2024 (Given - Provider: Fanny June RN) 0925 (Not Given - Provider: Varun Subramanian RN - Reason: Other - Comment: task duplication)2039 (Given - Provider: Vandana Gould RN) 0835 (Given - Provider: Anna Suero RN) sodium chloride 0.9 % flush 10 mL (CANCELED) 10 mL, Intravenous, Every 12 Hours Scheduled, First dose on Mon06/12/19 at 2099 2021 (Given - Provider: Fanny June RN) 0925 (Given - Provider: Varun Subramanian RN) sucralfate (CARAFATE) tablet 1 g 1 g, Oral, 4 Times Daily Before Meals & Nightly, First dose on Mon06/12/19 at 1730, Take on an empty stomach. For nasogastric administration: 1. Remove the cap and plunger from a [address] the sucralfate tablet inside the syringe 3. Replace the plunger so that minimal airspace exists around the tablet 4. Draw up approximately 20 mL water into the syringe 5. Replace the syringe cap 6. Allow the syringe to stand for ~5 minutes, shaking occasionally 7. Shake the suspension and administer directly from the syringe into the tube Flush tube before and after administration 1636 (Given - Provider: Varun Subramanian RN)2021 (Given - Provider: Fanny June RN) 0814 (Given - Provider: Varun Subramanian RN)1106 (Not Given - Provider: Varun Subramanian RN - Reason: NPO)1715 (Given - Provider: Varun Subramanian RN)2039 (Given - Provider: Vandana Gould RN) 0634 (Given - Provider: Vandana Gould, RN)1115 (Given - Provider: Anna Suero, RN) valACYclovir (VALTREX) tablet 1,000 mg 1,000 mg, Oral, Daily, First dose on Mon06/12/19 at 1630, For 5 doses, Caution: Look alike/sound alike drug alert, Indications: Prophylaxis 1636 (Given - Provider: Varun Subramanian RN) 0923 (Given - Provider: Varun Subramanian RN) 0834 (Given - Provider: Anna Suero, RN) Continuous Medication Order 06/12/2019 06/13/2019 06/14/2019 lactated ringers infusion 9 mL/hr, Intravenous, Continuous, Starting on Mon06/12/19 at 1815, May switch to NS IV at KVO if renal / if indicated 1815 (Due) 1447 (New Bag - Provider: Kiesha Benites RN)1626 (Stopped - Provider: Varun Subramanian RN) lactated ringers infusion 20 mL/hr, Intravenous, Continuous, Starting on Coty 06/13/19 at 1448 1623 (Stopped - Provider: Varun Subramanian RN) sodium chloride 0.9 % infusion 100 mL/hr, Intravenous, Continuous, Starting on Mon06/12/19 at 1630 1636 (New Bag - Provider: Varun Subramanian RN) 0232 (New Bag - Provider: Fanny June RN)1335 (New Bag - Provider: Varun Subramanian RN)1710 (Currently Infusing - Provider: Varun Subramanian RN)1949 (Currently Infusing - Provider: Vandana Gould RN) 0049 (Currently Infusing - Provider: Vandana Gould, RADHA)0255 (Currently Infusing - Provider: Vandana Gould, RADHA)0551 (Currently Infusing - Provider: Vandana Gould, RADHA) PRN Medication Order 06/12/2019 06/13/2019 06/14/2019 acetaminophen (TYLENOL) 160 MG/5ML solution 650 mg(Linked Group 2) 650 mg, Oral, Every 4 Hours PRN, Mild Pain, Starting on Mon06/12/19 at 1532, Do not exceed 4 grams of acetaminophen in a 24 hr period. If given for pain, use the following pain scale: Mild Pain = Pain Score of 1-3, CPOT 1-2 Moderate Pain = Pain Score of 4-6, CPOT 3-4 Severe Pain = Pain Score of 7-10, CPOT 5-8 acetaminophen (TYLENOL) suppository 650 mg(Linked Group 2) 650 mg, Rectal, Every 4 Hours PRN, Mild Pain, Starting on Mon06/12/19 at 1532, Do not exceed 4 grams of acetaminophen in a 24 hr period. If given for pain, use the following pain scale: Mild Pain = Pain Score of 1-3, CPOT 1-2 Moderate Pain = Pain Score of 4-6, CPOT 3-4 Severe Pain = Pain Score of 7-10, CPOT 5-8 acetaminophen (TYLENOL) tablet 650 mg(Linked Group 2) 650 mg, Oral, Every 4 Hours PRN, Mild Pain, Starting on Mon06/12/19 at 1532, Do not exceed 4 grams of acetaminophen in a 24 hr period. If given for pain, use the following pain scale: Mild Pain = Pain Score of 1-3, CPOT 1-2 Moderate Pain = Pain Score of 4-6, CPOT 3-4 Severe Pain = Pain Score of 7-10, CPOT 5-8 calcium carbonate EX (TUMS EX) chewable tablet 750 mg 750 mg, Oral, 2 Times Daily PRN, Heartburn, Starting on Mon06/12/19 at 1532, Take with food docusate sodium (COLACE) capsule 100 mg 100 mg, Oral, 2 Times Daily PRN, Constipation, Starting on Mon06/12/19 at 1532, Swallow whole. Do not open, crush, or chew capsule. HYDROcodone-acetaminophe n (NORCO) 5-325 MG per tablet 1 tablet 1 tablet, Oral, Every 4 Hours PRN, Moderate Pain, Starting on Mon06/12/19 at 1532, For 10 days, [ALEX] Do not exceed 4 grams of acetaminophen in a 24 hr period. If given for pain, use the following pain scale: Mild Pain = Pain Score of 1-3, CPOT 1-2 Moderate Pain = Pain Score of 4-6, CPOT 3-4 Severe Pain = Pain Score of 7-10, CPOT 5-8 2021 (Given - Provider: Fanny June RN) 0514 (Given - Provider: Fanny June RN)0923 (Given - Provider: Varun Subramanian RN)1715 (Given - Provider: Varun Subramanian RN) 1207 (Given - Provider: Anna Suero, RADHA) ketorolac (TORADOL) injection 30 mg 30 mg, Intravenous, Every 6 Hours PRN, Severe Pain, Starting on Coty 06/13/19 at 2103, For 5 days, {BKC} If given for pain, use the following pain scale: Mild Pain = Pain Score of 1-3, CPOT 1-2 Moderate Pain = Pain Score of 4-6, CPOT 3-4 Severe Pain = Pain Score of 7-10, CPOT 5-8 2111 (Given - Provider: Vandana Gould RN) 0638 (Given - Provider: Vandana Gould RN) morphine injection 1 mg(Linked Group 3) 1 mg, Intravenous, Every 4 Hours PRN, Moderate Pain, Starting on 06/12/19 at 1532, For 10 days, If given for pain, use the following pain scale: Mild Pain = Pain Score of 1-3, CPOT 1-2 Moderate Pain = Pain Score of 4-6, CPOT 3-4 Severe Pain = Pain Score of 7-10, CPOT 5-8 1637 (Given - Provider: Varun Subramanian RN - Comment: ABD)2213 (Given - Provider: Fanny June RN) 0232 (Given - Provider: Fanny June RN)0702 (Given - Provider: Fanny June RN)1112 (Given - Provider: Varun Subramanian RN)1801 (Given - Provider: Varun Subramanian RN) 1032 (Given - Provider: Anna Suero, RADHA) naloxone (NARCAN) injection 0.4 mg(Linked Group 3) 0.4 mg, Intravenous, Every 5 Minutes PRN, Respiratory Depression, Starting on 06/12/19 at 1532, If respiratory rate is less than 8 breaths/minute or patient is difficult to arouse stop any narcotics and contact physician. Administer slow IV push. Repeat as ordered until patient's respiratory rate is greater than 12 breaths/minute. ondansetron (ZOFRAN) injection 4 mg 4 mg, Intravenous, Every 6 Hours PRN, Nausea, Vomiting, Starting on 06/12/19 at 1532, If BOTH ondansetron (ZOFRAN) and promethazine (PHENERGAN) are ordered use ondansetron first and THEN promethazine IF ondansetron is ineffective. 0514 (Given - Provider: Fanny June, RN)2112 (Given - Provider: Vandana Gould, RADHA) 0834 (Given - Provider: Anna Suero RN) sodium chloride 0.9 % flush 10 mL 10 mL, Intravenous, As Needed, Line Care, Starting on Mon06/12/19 at 1103 sodium chloride 0.9 % flush 10 mL 10 mL, Intravenous, As Needed, Line Care, Starting on Mon06/12/19 at 1532 sodium chloride 0.9 % flush 10 mL (CANCELED) 10 mL, Intravenous, As Needed, Line Care, Starting on Mon06/12/19 at 1722 1112 (Given - Provider: Varun Subramanian RN) Linked Groups Order Group 1: PFC-QNg-TrCl-NaSulf-Na Asc-C (MOVIPREP) powder 1,000 mL (COMPLETED)Jump to med 1,000 mL, Oral, Once When Specified, On Mon06/12/19 at 1800, For 1 dose, Give first dose of MoviPrep kit at 1800 followed by second dose at 0400 Followed by HKY-CSn-AgTo-NaSulf-Na Asc-C (MOVIPREP) powder 1,000 mL (COMPLETED)Jump to med 1,000 mL, Oral, Once When Specified, On Mon06/13/19 at 0400, For 1 dose, Second dose of MoviPrep kit give at 0400 Group 2: acetaminophen (TYLENOL) tablet 650 mgJump to med 650 mg, Oral, Every 4 Hours PRN, Mild Pain, Starting on Mon06/12/19 at 1532, Do not exceed 4 grams of acetaminophen in a 24 hr period. If given for pain, use the following pain scale: Mild Pain = Pain Score of 1-3, CPOT 1-2 Moderate Pain = Pain Score of 4-6, CPOT 3-4 Severe Pain = Pain Score of 7-10, CPOT 5-8 Or acetaminophen (TYLENOL) 160 MG/5ML solution 650 mgJump to med 650 mg, Oral, Every 4 Hours PRN, Mild Pain, Starting on Mon06/12/19 at 1532, Do not exceed 4 grams of acetaminophen in a 24 hr period. If given for pain, use the following pain scale: Mild Pain = Pain Score of 1-3, CPOT 1-2 Moderate Pain = Pain Score of 4-6, CPOT 3-4 Severe Pain = Pain Score of 7-10, CPOT 5-8 Or acetaminophen (TYLENOL) suppository 650 mgJump to med 650 mg, Rectal, Every 4 Hours PRN, Mild Pain, Starting on Mon06/12/19 at 1532, Do not exceed 4 grams of acetaminophen in a 24 hr period. If given for pain, use the following pain scale: Mild Pain = Pain Score of 1-3, CPOT 1-2 Moderate Pain = Pain Score of 4-6, CPOT 3-4 Severe Pain = Pain Score of 7-10, CPOT 5-8 Group 3: morphine injection 1 mgJump to med 1 mg, Intravenous, Every 4 Hours PRN, Moderate Pain, Starting on Mon06/12/19 at 1532, For 10 days, If given for pain, use the following pain scale: Mild Pain = Pain Score of 1-3, CPOT 1-2 Moderate Pain = Pain Score of 4-6, CPOT 3-4 Severe Pain = Pain Score of 7-10, CPOT 5-8 And naloxone (NARCAN) injection 0.4 mgJump to med 0.4 mg, Intravenous, Every 5 Minutes PRN, Respiratory Depression, Starting on Mon06/12/19 at 1532, If respiratory rate is less than 8 breaths/minute or patient is difficult to arouse stop any narcotics and contact physician. Administer slow IV push. Repeat as ordered until patient's respiratory rate is greater than 12 breaths/minute. documented in this encounter Care Teams Dry Transfer Man Relationship Specialty Start Date End Date [place] [address] PCP - General Family Medicine 07/30/18 02/02/20 documented as of this encounter
--- OUTSIDE RECORDS SUMMARY | 2024-01-11 19:02 | XMS_ITS | Encounter Summary ---
Author Organization [facility] Address [address] [place] [address] Care Team Providers Care Gis Geographer Name Role Phone Radha Chau DO Primary Care Provider [phone] Reason for Visit * Reason Comments [facility] Er f/u-pneumoina chest hurts, cough but can't get anything up Vaginal Itching w/ white d/c (had IV antibiotics in hosp) Encounter Details Date Type Department Care Team (Late st Contact Info) Description 07/19/2019 9:15 AM EDT Office Visit [facility] [address] [facility] [place] [address] Radha Chau DO [address] [facility] [place] [address] Pneumonia due to infectious organism, unspecified laterality, unspecified part of lung (Primary Dx); Vaginal yeast infection; Hyperglycemia; History of motion sickness 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 Tobacco Use Types Packs/Day Years [...] Sign Reading Time Taken Comments Blood Pressure 104/76 07/19/2019 9:31 AM EDT Pulse 96 07/19/2019 9:31 AM EDT Temperature 36.4 ??C (97.5 ??F) 07/19/2019 9:31 AM ED T Respiratory Rate - - Oxygen Saturation 99% 07/19/2019 9:31 AM EDT Inhaled Oxygen Concentration - - Weight 141 kg (311 lb) 07/19/2019 9:31 AM EDT Height 167.6 cm (5' 5.98 ) 07/19/2019 9:31 AM ED T Body Mass Index 50.23 07/19/2019 9:31 AM EDT documented in this encounter Patient Instructions * Patient Instructions* Radha Chau DO - 07/19/2019 9:15 AM EDT Images from the original note were not included. Go to the nearest ER or return to clinic if symptoms worsen, fever/chill develop Community-Acquired Pneumonia, Adult Pneumonia is an infection of the lungs. It causes swelling in the airways of the lungs. Mucus and fluid may also build up inside the airways. One type of pneumonia can happen while a person is in a hospital. A different type can happen when a person is not in a hospital (community-acquired pneumonia). What are the causes? This condition is caused by germs (viruses, bacteria, or fungi). Some types of germs can be passed from one person to another. This can happen when you breathe in droplets from the cough or sneeze ofan infected person. What increases the risk? You are more likely to develop this condition if you: ?? Have a long-term (chronic) disease, such as: ? Chronic obstructive pulmonary disease (COPD). ? Asthma. ? Cystic fibrosis. ? Congestive heart failure. ? Diabetes. ? Kidney disease. ?? Have HIV. ?? Have sickle cell disease. ?? Have had your spleen removed. ?? Do not take good care of your teeth and mouth (poor dental hygiene). ?? Have a medical condition that increases the risk of breathing in droplets from your own mouth and nose. ?? Have a weakened body defense system (immune system). ?? Are a smoker. ?? Travel to areas where the germs that cause this illness are common. ?? Are around certain animals or the places they live. What are the signs or symptoms? ?? A dry cough. ?? A wet (productive) cough. ?? Fever. ?? Sweating. ?? Chest pain. This often happens when breathing deeply or coughing. ?? Fast breathing or trouble breathing. ?? Shortness of breath. ?? Shaking chills. ?? Feeling tired (fatigue). ?? Muscle aches. How is this treated? Treatment for this condition depends on many things. Most adults can be treated at home. In some cases, treatment must happen in a hospital. Treatment may include: ?? Medicines given by mouth or through an IV tube. ?? Being given extra oxygen. ?? Respiratory therapy. In rare cases, treatment for very bad pneumonia may include: ?? Using a machine to help you breathe. ?? Having a procedure to remove fluid from around your lungs. Follow these instructions at home: Medicines ?? Take oopa-ptj-migkpfp and prescription medicines only as told by your doctor. ? Only take cough medicine if you are losing sleep. ?? If you were prescribed an antibiotic medicine, take it as told by your doctor. Do not stop taking the antibiotic even if you start to feel better. General instructions ?? Sleep with your head and neck raised (elevated). You can do this by sleeping in a recliner or byputting a few pillows under your head. ?? Rest as needed. Get at least 8 hours of sleep each night. ?? Drink enough water to keep your pee (urine) pale yellow. ?? Eat a healthy diet that includes plenty of vegetables, fruits, whole grains, low-fat dairy products, and lean protein. ?? Do not use any products that contain nicotine or tobacco. These include cigarettes, e-cigarettes, and chewing tobacco. If you need help quitting, ask your doctor. ?? Keep all follow-up visits as told by your doctor. This is important. How is this prevented? A shot (vaccine) can help prevent pneumonia. Shots are often suggested for: ?? People older than 65 years of age. ?? People older than 19 years of age who: ? Are having cancer treatment. ? Have long-term (chronic) lung disease. ? Have problems with their body's defense system. You may also prevent pneumonia if you take these actions: ?? Get the flu (influenza) shot every year. ?? Go to the dentist as often as told. ?? Wash your hands often. If you cannot use soap and water, use hand family day carer. Contact a doctor if: ?? You have a fever. ?? You lose sleep because your cough medicine does not help. Get help right away if: ?? You are short of breath and it gets worse. ?? You have more chest pain. ?? Your sickness gets worse. This is very serious if: ? You are an older adult. ? Your body's defense system is weak. ?? You cough up blood. Summary ?? Pneumonia is an infection of the lungs. ?? Most adults can be treated at home. Some will need treatment in a hospital. ?? Drink enough water to keep your pee pale yellow. ?? Get at least 8 hours of sleep each night. This information is not intended to replace advice given to you by your health care provider. Make sure you discuss any questions you have with your health care provider. Document Released: 07/25/2008 Document Revised: 05/29/2019 Document Reviewed: 10/04/2018 [employer] Patient Education ?? 2020 [employer]. documented in this encounter Progress Notes * Radha Chau DO - 07/19/2019 9:15 AM EDT Subjective Ivon Erwin is a 28 y.o. female. Chief Complaint Patient presents with ??? [facility] Er f/u-pneumoina chest hurts, cough but can't get anything up ??? Vaginal Itching w/ white d/c (had IV antibiotics in hosp) History of Present Illness She recently had laparoscopic exploratory surgery of abdomen due to RLQ pain, resulting in appendectomy at [place]. Dr. Carvalho was her surgeon. She developed a cough within the last 7 days. Cough is nonproductive. Terry sided chest wall pain. She was evaluated at [facility] ER on 07/16/19, diagnosed with pneumonia. Treated with Toradol and Rocephin at ER, discharged home and advised to follow up with PCP within 2-3 days.Since being treatedwith Rocephin in ER, she has developed vaginal discharge and itching. Discharge is thick, white without foul odor. Follow up with Dr. Carvalho next Monday. Surgical incisions are healing well. Glucose elevated at ER, advised to recheck at follow up. No history of diabetes. Getting nauseous while riding in cars. This started within the last 2 weeks. Worse if she rides in the back seat. Zofran doesn't resolve symptoms. Promethazine works better. The following portions of the patient's history were reviewed and updated as appropriate: allergies, current medications, past family history, past medical history, past social history, past surgicalhistory and problem list. Review of Systems Constitutional: Negative for chills, fatigue and fever. HENT: Negative. Eyes: Negative. Respiratory: Positive for cough. Negative for chest tightness and shortness of breath. Cardiovascular: Negative for chest pain (chest wall pain) and palpitations. Gastrointestinal: Positive for nausea. Negative for abdominal pain and vomiting. Genitourinary: Positive for vaginal discharge. Skin: Negative for rash. Neurological: Negative for light-headedness, headache and confusion. Hematological: Does not bruise/bleed easily. Psychiatric/Behavioral: Negative. Objective Physical Exam Constitutional: She appears well-developed and well-nourished. HENT: Head: Normocephalic and atraumatic. Right Ear: External ear normal. Left Ear: External ear normal. Nose: Nose normal. Eyes: Conjunctivae are normal. Neck: Neck supple. Cardiovascular: Normal rate, regular rhythm and normal heart sounds. Pulmonary/Chest: Effort normal and breath sounds normal. No respiratory distress. She has no wheezes. She has no rhonchi. Abdominal: Soft. Surgical incisions healing well. No erythema or discharge. Musculoskeletal: She exhibits no deformity. Neurological: She is alert. Skin: Skin is warm and dry. Psychiatric: Her behavior is normal. Nursing note and vitals reviewed. Assessment/Plan Ivon was seen today for [facility] er f/u-pneumoina and vaginal itching. Diagnoses and all orders for this visit: Pneumonia due to infectious organism, unspecified laterality, unspecified part of lung Comments: Will extend treatment with Augmentin. Albuterol inhaler to improve dyspnea. Continue use with incentive spirometer. Orders: - albuterol sulfate HFA 108 (90 Base) MCG/ACT inhaler; Inhale 2 puffs Every 4 (Four) Hours As Needed for Shortness of Air. - guaiFENesin (Mucinex) 600 MG 12 hr tablet; Take 1 tablet by mouth 2 (Two) Times a Day. - amoxicillin-clavulanate (Augmentin) 875-125 MG per tablet; Take 1 tablet by mouth 2 (Two) Times aDay for 7 days. Vaginal yeast infection Comments: Diflucan and Monistat to improve Orders: - fluconazole (Diflucan) 150 MG tablet; Take 1 tablet by mouth Every 72 (Seventy-Two) Hours for 2 doses. - Miconazole Nitrate (Monistat 3) 4 % cream; Insert 1 application into the vagina Every Night for 3days. Hyperglycemia Comments: lab completed today to evaluate for diabetes Orders: - CBC & Differential - Comprehensive Metabolic Panel - Hemoglobin A1c History of motion sickness Comments: prn phenergan Orders: - promethazine (PHENERGAN) 25 MG tablet; Take 0.5-1 tablets by mouth Every 6 (Six) Hours As Needed for Nausea or Vomiting. documented in this encounter Plan of Treatment Not on file documented as of this encounter Procedures Procedure Name Priority Date/Time Associated Diagnosis Comments CBC AND DIFFERENTIAL Routine 07/19/2019 10:20 AM EDT Hyperglycemia HEMOGLOBIN A1C Routine 07/19/2019 10:20 AM EDT Hyperglycemia COMPREHENSIVE METABOLIC PANEL Routine 07/19/2019 10:20 AM EDT Hyperglycemia documented in this encounter Results * (ABNORMAL) Hemoglobin A1c (07/19/2019 10:20 AM EDT) Hemoglobin A1C 6.50(H) 4.80 - 5.60 % [facility] Comment: Hemoglobin A1C Ranges: Increased Risk for Diabetes ??5.7% to 6.4% Diabetes ? >= 6.5% Diabetic Goal ?< 7.0% Blood 07/19/2019 10:2 0 AM EDT 07/19/2019 Narrative [facility] ([facility]) - 07/20/2019 3:06 AM EDT Performed at: ??[address] ??[id number] Weather Stripper: Calixto Renner MD, Phone: ??[phone] Patient Fasting: ??Y us Radha Ann Isac LAB BLOOD ORDERABLES Final Result [facility] ([facility]) [address] [place] [address], [place] [phone] [facility] [address] [place] [address], [place] [phone] * (ABNORMAL) Comprehensive Metabolic Panel (07/19/2019 10:20 AM EDT) Pathologist [facility] Glucose 175(H) 65 - 99 mg/dL [facility] BUN 12 6 - 20 mg/dL [facility] Creatinine 0.66 0.57 - 1.00 mg/dL [facility] eGFR Non Am 105 >60 mL/min/1.7 3 [facility] eGFR Am 127 >60 mL/min/1.7 3 [facility] BUN/Creatinine Ratio 18.2 7.0 - 25.0 [facility] Sodium 136 136 - 145 mmol/L [facility] Potassium 4.6 3.5 - 5.2 mmol/L [facility] Chloride 102 98 - 107 mmol/L [facility] Total CO2 21.5(L) 22.0 - 29.0 mmol/L [facility] Calcium 9.5 8.6 - 10.5 mg/dL [facility] Total Protein 7.5 6.0 - 8.5 g/dL [facility] Albumin 4.50 3.50 - 5.20 g/dL [facility] Globulin 3.0 gm/dL [facility] A/G Ratio 1.5 g/dL [facility] Total Bilirubin 0.2 0.2 - 1.2 mg/dL [facility] Alkaline Phosphatase 69 39 - 117 U/L [facility] AST (SGOT) 11 1 - 32 U/L [facility] ALT (SGPT) 19 1 - 33 U/L [facility] Blood 07/19/2019 10:2 0 AM EDT 07/19/2019 Narrative [facility] ([facility]) - 07/20/2019 3:06 AM EDT Performed at: ??01 - [place] [address] [place], [place] ??[id number] Weather Stripper: Calixto Renner MD, Phone: ??[phone] Patient Fasting: ??Y Radha Chau DO LAB BLOOD ORDERABLES Final Result [facility] ([facility]) [address] [place] [address], [facility] [address] [place] [address], * (ABNORMAL) CBC & Differential (07/19/2019 10:20 AM EDT) WBC 7.44 3.40 - 10.80 10*3/mm3 [facility] RBC 4.43 3.77 - 5.28 10*6/mm3 [facility] Hemoglobin 13.3 12.0 - 15.9 g/dL [facility] Hematocrit 40.1 34.0 - 46.6 % [facility] MCV 90.5 79.0 - 97.0 fL [facility] MCH 30.0 26.6 - 33.0 pg [facility] MCHC 33.2 31.5 - 35.7 g/dL [facility] RDW 12.9 12.3 - 15.4 % [facility] Platelets 272 140 - 450 10*3/mm3 [facility] Neutrophil Rel % 59.5 42.7 - 76.0 % [facility] Lymphocyte Rel % 28.0 19.6 - 45.3 % [facility] Monocyte Rel % 5.6 5.0 - 12.0 % [facility] Eosinophil Rel % 5.9 0.3 - 6.2 % [facility] Basophil Rel % 0.7 0.0 - 1.5 % [facility] Neutrophils Absolute 4.43 1.70 - 7.00 10*3/mm3 [facility] Lymphocytes Absolute 2.08 0.70 - 3.10 10*3/mm3 [facility] Monocytes Absolute 0.42 0.10 - 0.90 10*3/mm3 [facility] Eosinophils Absolute 0.44(H) 0.00 - 0.40 10*3/mm3 [facility] Basophils Absolute 0.05 0.00 - 0.20 10*3/mm3 [facility] Immature Granulocyte Rel % 0.3 0.0 - 0.5 % [facility] Immature Grans Absolute 0.02 0.00 - 0.05 10*3/mm3 [facility] nRBC 0.0 0.0 - 0.2 /100 WBC [facility] Blood 07/19/2019 10:2 0 AM EDT 07/19/2019 Narrative [facility] ([facility]) - 07/20/2019 3:06 AM EDT Performed at: ?? - [address] ??[id number] Weather Stripper: Calixto Renner MD, Phone: ??[phone] Patient Fasting: ??Y us Radha Chau DO LAB BLOOD ORDERABLES Final Result [facility] ([facility]) [address] [place] [address], [facility] [address] [place] [address], [place] [phone] documented in this encounter Visit Diagnoses Diagnosis Pneumonia due to infectious organism, unspecified laterality, unspecified part of lung- Primary Vaginal yeast infection Candidiasis of vulva and vagina Hyperglycemia Other abnormal glucose History of motion sickness documented in this encounter Care Teams Gis Geographer Relationship Specialty Start Date End Date Radha Chau DO [address] [place] [address] PCP - General Family Medicine 07/30/18 02/02/20 documented as of this encounter
--- OUTSIDE RECORDS SUMMARY | 2024-01-11 19:02 | XMS_ITS | Encounter Summary ---
[facility] Organization [facility] Address [address] [place] [id number] Care Team Providers Care Modern And Contemporary Art Curator Name Role Phone Radha Chau DO Primary Care Provider [phone] Encounter Details Date Type Department Care Team (Late st Contact Info) Description 08/20/2019 8:30 AM EDT Outside Facility Service [facility] [address] [facility] [address] [place] [id number] Aristides Mai MD [address] [facility] [address] [place] [address] 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 Tobacco Use Types Packs/Day Years [...] Priority Date/Time Associated Diagnosis Comments ENDOSCOPY, INT 08/20/2019 documented in this encounter Results * ENDOSCOPY, INT (08/20/2019) us Aristides Mai MD INTERFACE NEEDS Final Res ult documented in this encounter Visit Diagnoses Not on filedocumented in this encounter Care Teams Modern And Contemporary Art Curator Relationship Specialty Start Date End Date Radha Chau DO [address] [place] [address] [place] [address] PCP - General Family Medicine 07/30/18 02/02/20 documented as of this encounter
--- OUTSIDE RECORDS SUMMARY | 2024-01-11 19:02 | XMS_ITS | Encounter Summary ---
Author Organization [facility] Address [address] [place] [id number] Care Team Providers Care Physical Chemistry Teacher Name Role Phone Isac Radha Oliva REAL Primary Care Provider [phone] Reason for Referral * Surgical (Routine) - Closed Specialty Diagnoses / Procedures Referred By Contact Referred To Contact Gastroenterology Diagnoses Screen for colon cancer Procedures Case Request Aristides Mai MD [address] [place] [address] Phone: tel: fax: Aristides Mai MD [address] [place] [address] Phone: tel: fax: Referral ID Status Reason Start Date Expiration Date Visits Re quested Visits Authorized [id number] Closed 01/21/2020 01/20/2021 1 1 Encounter Details Date Type Department Care Team (Late st Contact Info) Description 01/20/2020 Prep for Surgery [facility] ORDERS ONLY [address] [place] [address] Aristides Mai MD [address] [place] [address] Screen for colon cancer (Primary Dx) 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 Tobacco Use Types [...] as of this encounter Visit Diagnoses Diagnosis Screen for colon cancer- Primary Special screening for malignant neoplasms, colon documented in this encounter Care Teams Physical Chemistry Teacher Relationship Specialty Start Date End Date Radha Chau DO [address] [place] [address] PCP - General Family Medicine 07/30/18 02/02/20 documented as of this encounter
--- OUTSIDE RECORDS SUMMARY | 2024-01-11 19:02 | XMS_ITS | Encounter Summary ---
Author Organization [facility] Address [address] [place] [address] Care Team Providers Care Insecticide Maker Name Role Phone Radha Chau Primary Care Provider [phone] Encounter Details Date Type Department Care Team (Late st Contact Info) Description 06/14/2019 Readmission Management [facility] [address] [place] [address] Claribel Abad RN 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 Tobacco Use Types Packs/Day Years [...] encounter Miscellaneous Notes * Outreach Note - Claribel Abad RN - 06/14/2019 5:40 PM EDT Prep Survey [facility] 7 ? Yes Eligibility [facility] Date of Admission 06/12/19 Date of Discharge 06/14/19 Discharge Disposition Home or Self Care Discharge diagnosis RLQ abdominal pain, esophageal stenosis, dysphagia COVID-19 Test Status Not tested Does the patient have one of the following disease processes/diagnoses(primary or secondary)? Other Does the patient have Home health ordered? No Is there a DME ordered? No Prep survey completed? Yes Claribel Abad RN documented in this encounter Plan of Treatment Not on file documented as of this encounter Visit Diagnoses Not on filedocumented in this encounter Care Teams Insecticide Maker Relationship Specialty Start Date End Date Radha Chau DO [address] [place] [address] PCP - General Family Medicine 07/30/18 02/02/20 documented as of this encounter
--- OUTSIDE RECORDS SUMMARY | 2024-01-11 19:02 | XMS_ITS | Encounter Summary ---
Author Organization [facility] Address [address] [place] [address] Care Team Providers Care Maintenance Worker Name Role Phone Radha Chau Primary Care Provider [phone] [phone] Reason for Visit * Reason Comments Follow-up hospital follow up Encounter Details Date Type Department Care Team (Late st Contact Info) Description 06/20/2019 11:00 AM EDT Office Visit [facility] GASTROENTEROLOGY [address] [facility] [address] [place] [address] Jacky Damon, ACCELERATOR OPERATOR [address] [place] [address] Right lower quadrant abdominal pain (Primary Dx); Appendicolith; Esophagitis, eosinophilic; Epigastric pain; Esophageal dysphagia; Odynophagia; Gastroesophageal reflux disease, esophagitis presence not specified 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 Tobacco Use Types Packs/Day Years [...] Sign Reading Time Taken Comments Blood Pressure 153/89 06/20/2019 11:08 AM EDT Pulse 100 06/20/2019 11:08 AM EDT Temperature - - Respiratory Rate - - Oxygen Saturation - - Inhaled Oxygen Concentration - - Weight 141 kg (311 lb) 06/20/2019 11:08 AM EDT Height - - Body Mass Index 50.2 06/13/2019 2:29 PM EDT documented in this encounter Progress Notes * Jacky Damon Xiao, ACCELERATOR OPERATOR - 06/20/2019 11:00 AM EDT GASTROENTEROLOGY OFFICE NOTE Ivon Erwin [id number] 1990 CARE TEAM Patient Care Team: Radha Chau, DO as PCP - General (Family Medicine) Referring Provider: Radha Chau, DO Chief Complaint Patient presents with ??? Follow-up hospital follow up HISTORY OF PRESENT ILLNESS: Ivon returns in follow-up with persistent complaints of right lower quadrant abdominal pain, recently hospitalized at [facility] from 06/11- with the same complaints.She has a known appendicolith without evidence of surrounding stranding or inflammation and was evaluated by generalsurgery during her hospitalization. She also underwent a colonoscopy and EGD. Colonoscopy was normal and specifically appendiceal orifice appeared normal. The examined portion of the terminal ileum was normal as well. Previous testing has included a gynecologic work-up with laparoscopic exam that was apparently unremarkable for her persistent complaints of RLQ abdominal pain. She has an upcoming a ppointment with [employer] TR[employer]IVER for further evaluation. ?? She had further complaints of dyspeptic symptoms not relieved by Protonix 40 mg daily and solid food dysphagia. EGD showed esophagitis. The esophagus was dilated and biopsied. Pathology confirms chronic, active gastroesophagitis with moderate eosinophilia (as many as 20 eosinophils in a single high-power field) at 40 cm and more abundant eosinophils showing as many as 50 eosinophils in a single high-power field from the biopsy at 30 cm. She continues to complain of intermittent dysphagia and epigastric pain. PAST MEDICAL HISTORY Past Medical History: Diagnosis Date ??? Anxiety ??? Depression ??? Endometriosis ??? Fibroid tumor ??? Ovarian cyst PAST SURGICAL HISTORY Past Surgical History: Procedure Laterality Date ??? SECTION ??? CHOLECYSTECTOMY ??? COLONOSCOPY N/A 06/13/2019 Procedure: COLONOSCOPY; Surgeon: Virgil Wallace MD; Location: [facility] ENDOSCOPY; Service: Gastroenterology; Laterality: N/A; ??? DILATATION AND CURETTAGE ??? ENDOSCOPY N/A 06/13/2019 Procedure: ESOPHAGOGASTRODUODENOSCOPY; Surgeon: Virgil Wallace MD; Location: [facility] ENDOSCOPY; Service: Gastroenterology; Laterality: N/A; ??? HYSTERECTOMY Partial ??? TONSILLECTOMY ??? TUBAL ABDOMINAL LIGATION MEDICATIONS: Current Outpatient Medications: ??? escitalopram (LEXAPRO) 20 MG tablet, , Disp: , Rfl: ??? HYDROcodone-acetaminophen (NORCO) 5-325 MG per tablet, Take 1 tablet by mouth Every 6 (Six) Hours As Needed for Moderate Pain or Severe Pain ., Disp: 15 tablet, Rfl: 0 ??? pantoprazole (Protonix) 40 MG EC tablet, Take 1 tablet by mouth 2 (Two) Times a Day., Disp: 60 tablet, Rfl: 5 ??? promethazine (PHENERGAN) 25 MG tablet, Take 1 tablet by mouth Every 6 (Six) Hours As Needed forNausea or Vomiting., Disp: 20 tablet, Rfl: 1 ??? valACYclovir (VALTREX) 1000 MG tablet, Take 1 tablet by mouth Daily., Disp: 90 tablet, Rfl: 1 ALLERGIES No Known Allergies FAMILY HISTORY: History reviewed. No pertinent family history. SOCIAL HISTORY 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 Socioeconomic History ??? Marital status: Single Spouse name: Not on file ??? Number of children: Not on file ??? Years of education: Not on file ??? Highest education level: Not on file Tobacco Use ??? Smoking status: Never Smoker ??? Smokeless tobacco: Never Used Substance and Sexual Activity ??? Alcohol use: No ??? Drug use: No REVIEW OF SYSTEMS Review of Systems Constitutional: Negative for activity change, appetite change, chills, diaphoresis, fatigue, fever,unexpected weight gain and unexpected weight loss. HENT: Positive for trouble swallowing. Negative for voice change. Gastrointestinal: Positive for abdominal pain. Negative for abdominal distention, anal bleeding, blood in stool, constipation, diarrhea, nausea, rectal pain, vomiting, GERD and indigestion. PHYSICAL EXAM BP 153/89 Pulse 100 Wt (!) 141 kg (311 lb) BMI 50.20 kg/m?? Physical Exam Constitutional: She is oriented [...] normal. She exhibits no mass. There is tenderness in the right lower quadrant. There is no rebound and no guarding. No hernia. Musculoskeletal: Normal [...] new clinical results. ASSESSMENT / PLAN 1. Right lower quadrant abdominal pain, persistent 2. Appendicolith -Etiology of presenting complaint of RLQ abdominal pain remains unclear. GI workup unremarkable. Although it is rare, appendicolith may cause chronic abdominal pain. Will plan to refer to general surgery if upcoming [employer] evaluation is unremarkable. 3. Eosinophilic esophagitis 4. Epigastric pain 5. Dysphasia - Increase pantoprazole to 40 mg twice daily, instructed to take on empty stomach 30 minutes later - EGD in 8 weeks to assess treatment response for EOE Return in about 8 weeks (around 08/15/2019) for EGD. I discussed the patients findings and my recommendations with patient Jacky Damon APRN documented in this encounter Plan of Treatment Not on file documented as of this encounter Visit Diagnoses Diagnosis Right lower quadrant abdominal pain- Primary Appendicolith Esophagitis, eosinophilic Eosinophilic esophagitis Epigastric pain Abdominal pain, epigastric Esophageal dysphagia Dysphagia, pharyngoesophageal phase Odynophagia Dysphagia, unspecified Gastroesophageal reflux disease, esophagitis presence not specified documented in this encounter Care Teams Maintenance Worker Relationship Specialty Start Date End Date Rad[place] [address] PCP - General Family Medicine 07/30/18 02/02/20 documented as of this encounter
--- OUTSIDE RECORDS SUMMARY | 2024-01-11 19:02 | XMS_ITS | Encounter Summary ---
Author Organization [facility] Address [address] [place] [id number] Care Team Providers Care Poker Dealer Name Role Phone Radha Chau Primary Care Provider [phone] Encounter Details Date Type Department Care Team (Late st Contact Info) Description 07/22/2019 Telephone [facility] FAMILY MEDICINE [address] [place] [address] Melanie Gooden PA [address] [place] [address] 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 Tobacco Use Types Packs/Day Years [...] encounter Miscellaneous Notes * Telephone Encounter - Valeria Giron MA - 07/22/2019 4:08 PM EDT Migdalia w/ [facility] in [place] ([phone]) said pt has hives w/ swollen lips. Pt received shot of steroids. Being sent home w/ oral steroids and Zpack. Updated allergy list. * Telephone Encounter - Odalis Newell MA - 07/22/2019 3:12 PM EDT LM for pt to call us back. Melanie is going to change antibiotic. Can pt tolerate a Zpak? We will also send in a steroid for pt too. Pt will repeat chest xray a week after finishing new antibiotic. * Telephone Encounter - Melanie Daigle PA - 07/22/2019 2:05 PM EDT Okay, thanks! * Telephone Encounter - Odalis Newell MA - 07/22/2019 1:36 PM EDT Called pt at your request and she say's, this first came up yesterday morning after she took her meds and went and sat on the porch. It started on her face and they spread to trunk. Face is getting some better because she has taken Benadryl. She is not sure if it's from antibiotic only or antibiotic mixed with sun exposure. documented in this encounter Plan of Treatment Not on file documented as of this encounter Visit Diagnoses Not on filedocumented in this encounter Care Teams Poker Dealer Relationship Specialty Start Date End Date Radha Chau DO [address] [place] [address] PCP - General Family Medicine 07/30/18 02/02/20 documented as of this encounter
--- OUTSIDE RECORDS SUMMARY | 2024-01-11 19:02 | XMS_ITS | Encounter Summary ---
Author Organization [facility] Address [address] [place] [address] Care Team Providers Care Cattle Dealer Name Role Phone Radha Chau Primary Care Provider [phone] Encounter Details Date Type Department Care Team (Late st Contact Info) Description 2019 10:15 AM EDT Lab [facility] COVID19 [facility] PREADMISSION TESTING [address] [place] [id number] 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 Tobacco Use Types Packs/Day Years [...] Procedure Name Priority Date/Time Associated Diagnosis Comments COVID PRE-OP / PRE-PROCEDURE SCREENING ORDER (NO ISOLATION) Routine 2019 2:11 PM EDT ZZZCOVID-19 PCR, [facility], NETWORK MANAGER SWAB IN [facility] [employer]SP[employer] MEDIA/ORAL SWISH 24-30 HR TAT Routine 2019 2:11 PM EDT documented in this encounter Results * COVID-19,[facility], NETWORK MANAGER SWAB IN [facility] [employer] [facility] 24-30 HR TAT - Swab, Nasopharynx (2019 2:11 PM EDT) Reference Lab Report 10/23/2019 7:55 PM EDT [facility] Comment:See scanned report COVID19 Not Detected Not Detected - Ref. Range 10/23/2019 7:55 PM EDT [facility] Swab Nasopharyngeal structure / Unknown Collection / Unknown 2019 2:11 PM EDT 2019 8:09 PM EDT Aristides Nickerson MD MICROBIOLOGY - GENERAL ORDERA BLES Final Result [facility] documented in this encounter Visit Diagnoses Not on filedocumented in this encounter Additional Health Concerns Infection Onset Date Last Indicated Resolved Time COVID Screen (preop/placement) 2019 2019 10/23/2019 7:55 PM EDT documented as of this encounter Care Teams Cattle Dealer Relationship Specialty Start Date End Date [place] [address] PCP - General Family Medicine 07/30/18 02/02/20 documented as of this encounter
--- OUTSIDE RECORDS SUMMARY | 2024-01-11 19:02 | XMS_ITS | Encounter Summary ---
Author Organization [facility] Address [address] [place] [id number] Care Team Providers Care Insight Director Name Role Phone Joyce Shaw APRN Primary Care Provider [phone] Reason for Visit * Reason Onset Date Comments Med Refill 02/03/2020 Encounter Details Date Type Department Care Team (Late st Contact Info) Description 02/03/2020 Refill [facility] GASTROENTEROLOGY [address] [facility] [address] [place] [address] Aristides Mai MD [address] [facility] [address] [place] [address] 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 Tobacco Use Types Packs/Day Years [...] on filedocumented in this encounter Care Teams Insight Director Relationship Specialty Start Date End Date Joyce Shaw APRN [address] [place], [place] [id number] PCP - General Nurse Practitioner 02/03/20 09/03/20 documented as of this encounter
--- NOTE | 2024-01-11 19:03 | XR_ITS ---
PROCEDURE INFORMATION: Exam: XR Chest Exam date and time: 01/11/2024 7:26 PM Age: 33 years old Clinical indication: Cough; Additional info: Cough, postop from mastectomy TECHNIQUE: Imaging protocol: Radiologic exam of the chest. Views: 2 views. PA and Lateral COMPARISON: CR XR CHEST PORTABLE 07/17/2023 10:35 PM FINDINGS: Tubes, catheters and devices: Drainage catheter within the soft tissues of the anterior right chest. Lungs: The lungs appear clear without pulmonary venous congestion. Pleural spaces: No pleural effusion. No pneumothorax. Heart/Mediastinum: Mediastinum and ector appear unremarkable. Bones/joints: Mild generalized bony degenerative changes. Bony structures appear otherwise unremarkable. Soft tissues: Right mastectomy postsurgical changes are demonstrated. The soft tissues appear otherwise unremarkable. IMPRESSION: 1. Postsurgical changes compatible with recent right mastectomy. 2. No evidence for an acute cardiopulmonary process.
--- OUTSIDE RECORDS SUMMARY | 2024-01-11 19:03 | XMS_ITS | Encounter Summary ---
Author Organization [facility] Address [address] [place] [id number] Care Team Providers Care Roll Up Guider Operator Name Role Phone Radha Chau DO Primary Care Provider [phone] Encounter Details Date Type Department Care Team (Late st Contact Info) Description 08/20/2018 8:30 AM EDT Outside Facility Service [facility] GASTROENTEROLOGY [address] [facility] [address] [place] [address] Aristides Mai MD [address] [facility] [address] [place], [place] [id number] 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 Tobacco Use Types Packs/Day Years Used Date Smoking Tobacco: Never Smokeless Tobacco: Never Alcohol Use Standard Drinks/Week Comments No 0 (1 standard drink = 0.6 oz pur e alcohol) Comments Unknown Sex and Gender Information Value Date Recorded Sex Assigned at Not on file Legal Sex Female 1:22 PM EDT Gender Identity Not on file Sexual Orientation Not on file documented as of this encounter Plan of Treatment Not on file documented as of this encounter Procedures Procedure Name Priority Date/Time Associated Diagnosis Comments ENDOSCOPY, INT 08/20/2018 documented in this encounter Results * ENDOSCOPY, INT (08/20/2018) Aristides Mai MD INTERFACE NEEDS Final Res ult documented in this encounter Visit Diagnoses Not on filedocumented in this encounter Care Teams Roll Up Guider Operator Relationship Specialty Start Date End Date Radha Chau DO [address] [place] [address] PCP - General Family Medicine 07/30/18 02/02/20 documented as of this encounter
--- OUTSIDE RECORDS SUMMARY | 2024-01-11 19:03 | XMS_ITS | Encounter Summary ---
Author Organization [facility] Address [address] [place] [phone] Care Team Providers Care Judicial Law Clerk Name Role Phone Radha Chau Primary Care Provider [phone] Encounter Details Date Type Department Care Team (Late st Contact Info) Description 08/15/2018 8:30 AM EDT Outside Facility Service [facility] GA[facility]Y [address] [facility] [address] [place] [address] Aristides Mai MD [address] [facility] [address] [place] [address] 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 Tobacco Use Types Packs/Day Years [...] Date/Time Associated Diagnosis Comments SCANNED - COLONOSCOPY 08/15/2018 SCANNED - COLONOSCOPY 08/15/2018 documented in this encounter Results * SCANNED - COLONOSCOPY (08/15/2018) Aristides Mai MD CHART REVIEW TABS [place] l Result * SCANNED - COLONOSCOPY (08/15/2018) Aristides Mai MD CHART REVIEW TABS [place] l Result documented in this encounter Visit Diagnoses Not on filedocumented in this encounter Care Teams Judicial Law Clerk Relationship Specialty Start Date End Date Radha Chau DO [address] [place] [address] PCP - General Family Medicine 07/30/18 02/02/20 documented as of this encounter
--- OUTSIDE RECORDS SUMMARY | 2024-01-11 19:03 | XMS_ITS | Encounter Summary ---
[facility] Address [address] [place] [address] Care Team Providers Care Tester Vibrator Equipment Name Role Phone Radha Chau Primary Care Provider [phone] Reason for Visit * Reason Comments Abdominal Pain * Auth/Cert Specialty Diagnoses / Procedures Referred By Contac t Referred To Contact Diagnoses RLQ abdominal pain Procedures na Referral ID Status Reason Start Date Expiration Date Visits Re quested Visits Authorized [id number] 1 1 Encounter Details Date Type Department Care Team (Late st Contact Info) Description 06/13/2019 3:39 PM EDT - 06/13/2019 4:38 PM EDT Surgery [facility] [address] [place] [address] Virgil Wallace MD [address] [place] [address] COLONOSCOPY 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 Tobacco Use Types Packs/Day Years [...] Sign Reading Time Taken Comments Blood Pressure 133/78 06/13/2019 4:00 PM EDT Pulse 77 06/13/2019 4:00 PM EDT Temperature 36.6 ??C (97.8 ??F) 06/13/2019 3:55 PM ED T Respiratory Rate 18 06/13/2019 4:00 PM EDT Oxygen Saturation 97% 06/13/2019 4:00 PM EDT Inhaled Oxygen Concentration - - Weight 140 kg (308 lb) 06/13/2019 2:29 PM EDT Height 167.6 cm (5' 6 ) 06/13/2019 2:29 PM EDT Body Mass Index 49.71 06/13/2019 2:29 PM EDT documented in this encounter Discharge Summaries * Kathia Augustin MD - 06/14/2019 12:35 PM EDT Images from the original note were not included. [facility] Medicine Services Clinical Decision Unit DISCHARGE [...] improved her pain. She requested prescription for [place] for home use. I discussed her care [...] Units Date/Time CT Abdomen Pelvis With Contrast [[id number]] Collected: 06/12/19 1334 Updated: 06/13/19 0959 Narrative: [...] Everywhere. * Acetaminophen; Hydrocodone tablets or capsules (Guyanese) documented in this encounter Medications at Time [...] follow up with Jacky Damon APRN at [facility] in 4 weeks. Patient was previously [...] from the original note were not included. [facility] Medicine Services Clinical Decision Unit PROGRESS NOTE Patient Name: Ivon Erwin : 1990 Admission Date and Time: 06/12/2019 10:59 AM Primary Care Physician: Radha Chau DO Subjective Subjective CC: Abdominal pain with [...] 06/13/2019 12:05 PM EDT Discharge Planning Assessment [facility] Patient Name: Ivon Erwin Today's Date: 06/13/2019 [...] No documentation. Patient Forms No documentation. Arlen Horne RN documented in this encounter H&P Notes * Zoe Kelly - 06/12/2019 3:19 PM EDT [facility] Medicine Services HISTORY AND PHYSICAL Patient Name: Ivon Erwin : 1990 Primary Care Physician: Radha Chua DO Date of admission: 06/12/2019 Subjective Subjective [...] Units Date/Time CT Abdomen Pelvis With Contrast [[id number]] Collected: 06/12/19 1334 Updated: 06/12/19 1426 Narrative: [...] made daily to update patient's identified best [id number]) Contact: Tawny Bernstein Relation: Mother Type of [...] Note Date of Service: 06/12/2019 Ivon Llamas Rip [id number] 1990 Referring Provider: Zoe Kelly DO Location [...] factors. She has undergone prior laparoscopy in [place] for low abdominal/pelvic pain. Problem List Items [...] 0.4 mg, Intravenous, Q5 Min PRN, Zoe Kelly, DO ??? ondansetron (ZOFRAN) injection 4 mg, 4 mg, Intravenous, Q6H PRN, Zoe Kelly, DO ??? pantoprazole (PROTONIX) EC tablet 40 mg, 40 mg, Oral, Daily, Zoe Kelly, DO, 40 mg at 06/12/19 1635 ??? [COMPLETED] JIR-HJk-XpAc-NaSulf-Na Asc-C (MOVIPREP) powder 1,000 mL, 1,000 mL, Oral, Once When Specified, 1,000 mL at 06/12/19 1819 FOLLOWED BY [START ON 06/13/2019] ZAX-LAe-HtIc-NaSulf-Na Asc-C (MOVIPREP) powder 1,000 mL, 1,000 mL, Oral, Once When Specified, Virgil Wallace MD ??? sodium chloride 0.9 % flush 10 mL, 10 mL, Intravenous, PRN, Zoe Kelly, DO ??? sodium chloride 0.9 % flush 10 mL, 10 mL, Intravenous, Q12H, Zoe Kelly, DO ??? sodium chloride 0.9 % flush 10 mL, 10 mL, Intravenous, PRN, Zoe Kelly, DO ??? sodium chloride 0.9 % flush 10 mL, 10 mL, Intravenous, Q12H, Luis Eduardo Espino MD ??? sodium chloride 0.9 % flush 10 mL, 10 mL, Intravenous, PRN, Luis Eduardo Espino MD ??? sodium chloride 0.9 % infusion, 100 mL/hr, Intravenous, Continuous, Zoe Kelly, DO, Last Rate: 100 mL/hr at 06/12/19 [...] Units Date/Time CT Abdomen Pelvis With Contrast [[id number]] Collected: 06/12/19 1334 Updated: 06/12/19 1426 Narrative: [...] PM EDTAssociated Order(s): IP CONSULT TO GASTROENTEROLOGY [facility] Referring Provider: No ref. provider found [...] Oral Daily pantoprazole 40 mg Oral Daily RJQ-PQf-LyMx-NaSulf-Na Asc-C 1,000 mL Oral Once When Specified Followed by [START ON 06/13/2019] SDO-JEz-UmRp-NaSulf-Na Asc-C 1,000 mL Oral Once When Specified [...] Procedure: COLONOSCOPY; Surgeon: Virgil Wallace MD; Location: [facility]; Service: Gastroenterology; Laterality: N/A; ??? DILATATION AND CURETTAGE ??? ENDOSCOPY N/A 06/13/2019 Procedure: ESOPHAGOGASTRODUODENOSCOPY; Surgeon: Virgil Wallace MD; Location: [facility]; Service: Gastroenterology; Laterality: N/A; ??? HYSTERECTOMY [...] For this patient encounter, I reviewed the QC SCIENTIST or PA documentation, treatment plan, and medical [...] Case Report Surgical Pathology Report ? Case: [id number] ? Authorizing Provider: ??Virgil Wallace MD ?Collected: ? 06/13/2019 02:59 PM ? Ordering Location: ? [facility] ?? Received: ?06/13/2019 04:05 PM ? ENDO SUITES ? Pathologist: ? Sahil Tripp MD ? Specimens: ?? 1) - Esophagus, esophagus @ 40cm ? 2) - Esophagus, esophagus @ 30cm ? 06/14/2019 1:52 PM EDT [facility] Clinical Information The working history is right lower quadrant abdominal pain, esophageal dysphagia. 06/14/2019 1:52 PM EDT [facility] Final Diagnosis 1. ESOPHAGEAL BIOPSIES AT 40 CM: Chronic active gastroesophagitis with moderate eosinophilia. Negative for Davis's metaplasia, dysplasia, and neoplasia. 2. ESOPHAGUS BIOPSIES AT 30 CM: Reactive epithelial changes with marked eosinophilia compatible with eosinophilic esophagitis. See Comment. JFJ/mbc 06/14/2019 1:52 PM EDT [facility] Comment The findings are compatible with eosinophilic esophagitis, however, that is a clinicopathologic diagnosis. Correlation with clinical history and endoscopic findings is recommended. 06/14/2019 1:52 PM EDT [facility] Gross Description Specimen 1 received [...] block 2A. CLB/dlb 06/14/2019 1:52 PM EDT [facility] Microscopic Description Sections from specimen 1 [...] dysplasia, or neoplasia. 06/14/2019 1:52 PM EDT [facility] Tissue Specimen from esophagus / Unknown 06/13/2019 2:59 PM EDT 06/13/2019 4:05 PM EDT Comment:esophagus @ 40cm Tissue specimen (specimen) Esophageal structure / Unknown 06/13/2019 3:00 PM EDT 06/13/2019 4:05 PM EDT Comment:esophagus @ 30cm us Virgil Wallace MD PATHOLOGY/CYTOLOGY ORDERABLES Final Result [facility]
[address] [place] [address], * UPPER GI ENDOSCOPY (06/13/2019 2:47 PM EDT) us Virgil Wallace MD INTERFACE NEEDS Final Result * Sedimentation Rate (06/13/2019 8:42 AM EDT) Sed Rate <1 0 - 20 mm/hr 06/13/2019 9:05 AM EDT [facility] Blood Line / Unknown 06/13/2019 8: 42 AM EDT 06/13/2019 8:47 AM EDT us Virgil Wallace MD LAB BLOOD ORDERABLES Final Res ult [facility]
[address] [place] [address], * CBC (No Diff) (06/13/2019 8:42 AM EDT) WBC 5.13 3.40 - 10.80 10*3/mm3 06/13/2019 8:52 AM EDT [facility] RBC 4.20 3.77 - 5.28 10*6/mm3 06/13/2019 8:52 AM EDT [facility] Hemoglobin 12.7 12.0 - 15.9 g/dL 06/13/2019 8:52 AM EDT [facility] Hematocrit 37.1 34.0 - 46.6 % 06/13/2019 8:52 AM EDT [facility] MCV 88.3 79.0 - 97.0 fL 06/13/2019 8:52 AM EDT [facility] MCH 30.2 26.6 - 33.0 pg 06/13/2019 8:52 AM EDT [facility] MCHC 34.2 31.5 - 35.7 g/dL 06/13/2019 8:52 AM EDT [facility] RDW 12.3 12.3 - 15.4 % 06/13/2019 8:52 AM EDT [facility] RDW-SD 39.4 37.0 - 54.0 fl 06/13/2019 8:52 AM EDT [facility] MPV 9.9 6.0 - 12.0 fL 06/13/2019 8:52 AM EDT [facility] Platelets 233 140 - 450 10*3/mm3 06/13/2019 8:52 AM EDT [facility] Blood Line / Unknown 06/13/2019 8: 42 AM EDT 06/13/2019 8:47 AM EDT Zoe [facility] LAB BLOOD ORDERABLES Final Res ult Performing Organization Address City/[facility]/ZIP Co de Phone Number [facility]
[address] [place] [address], [place] [phone] * Magnesium (06/13/2019 4:54 AM EDT) Pathologist [facility] Magnesium 1.8 1.6 - 2.6 mg/dL 06/13/2019 6:10 AM EDT [facility] Blood Line / Unknown 06/13/2019 4: 54 AM EDT 06/13/2019 5:29 AM EDT Zoe Robin DO LAB BLOOD ORDERABLES Final Res ult Performing Organization Address City/[facility] Co de Phone Number [facility]
[address] [place] [address], [place] [phone] * (ABNORMAL) Basic Metabolic Panel (06/13/2019 4:54 AM EDT) Glucose 105(H) 65 - 99 mg/dL 06/13/2019 6:26 AM EDT [facility] BUN 3(L) 6 - 20 mg/dL 06/13/2019 6:26 AM EDT [facility] Creatinine 0.60 0.57 - 1.00 mg/dL 06/13/2019 6:26 AM EDT [facility] Sodium 138 136 - 145 mmol/L 06/13/2019 6:26 AM EDT [facility] Potassium 4.1 3.5 - 5.2 mmol/L 06/13/2019 6:26 AM EDT [facility] Chloride 106 98 - 107 mmol/L 06/13/2019 6:26 AM EDT [facility] CO2 19.0(L) 22.0 - 29.0 mmol/L 06/13/2019 6:26 AM EDT [facility] Calcium 8.8 8.6 - 10.5 mg/dL 06/13/2019 6:26 AM EDT [facility] eGFR Non Amer 117 >60 mL/min/1.7 3 06/13/2019 6:26 AM EDT [facility] BUN/Creatinine Ratio 5.0(L) 7.0 - 25.0 06/13/2019 6:26 AM EDT [facility] Anion Gap 13.0 5.0 - 15.0 mmol/L 06/13/2019 6:26 AM EDT [facility] Blood Line / Unknown 06/13/2019 4: 54 AM EDT 06/13/2019 5:29 AM EDT Narrative [facility] - 06/13/2019 6:26 AM EDT GFR Normal >60 Chronic Kidney Disease <60 Kidney Failure <15 Zoe Kelly DO LAB BLOOD ORDERABLES Final Res ult [facility]
[address] [place] [address], * , Urine - Urine, Clean Catch (06/12/2019 10:11 PM EDT) HCG, Urine QL Negative Negative DISK DIFFUSION 06/12/2019 10:18 PM EDT [facility] Urine Urine specimen collection, clean catch / Unknown Collection / Unknown 06/12/2019 10:11 PM EDT 06/12/2019 10:11 PM EDT Zoe Kelly DO URINE ORDERABLES Final Result [facility]
[address] [place] [address], * Potassium (06/12/2019 6:02 PM EDT) Potassium 3.8 3.5 - 5.2 mmol/L 06/12/2019 6:23 PM EDT [facility] Blood Line / Unknown 06/12/2019 6: 02 PM EDT 06/12/2019 6:08 PM EDT Luis Eduardo Espino MD LAB BLOOD ORDERABLES Final Resu lt Performing Organization Address City/[facility]/ZIP Co de Phone Number [facility]
[address] [place] [address], * C-reactive Protein (06/12/2019 6:02 PM EDT) Pathologist [facility] C-Reactive Protein 0.14 0.00 - 0.50 mg/dL 06/12/2019 6:31 PM EDT [facility] Blood Line / Unknown 06/12/2019 6: 02 PM EDT 06/12/2019 6:08 PM EDT Virgil Wallace MD LAB BLOOD ORDERABLES Final Res ult Performing Organization Address City/[facility]/ZIP Co de Phone Number [facility]
[address] [place] [address], * CT Abdomen Pelvis With Contrast (06/12/2019 [...] Urine Negative Negative 2019 4:12 PM EDT [facility] Phencyclidine (PCP), Urine Negative Negative 06/12/2019 4:12 PM EDT [facility] Cocaine Screen, Urine Negative Negative 06/12/2019 4:12 PM EDT [facility] Methamphetamine, Ur Negative Negative 06/11 4:12 PM EDT [facility] Opiate Screen Negative Negative 06/12/2019 4:12 PM EDT [facility] Amphetamine Screen, Urine Negative Negative 06/12/2019 4:12 PM EDT [facility] Benzodiazepine Screen, Urine Negative Negative 06/12/2019 4:12 PM EDT [facility] Tricyclic Antidepressants Screen Negative Negative 06/12/2019 4:12 PM EDT [facility] Methadone Screen, Urine Negative Negative 06/12/2019 4:12 PM EDT [facility] Barbiturates Screen, Urine Negative Negative 06/12/2019 4:12 PM EDT [facility] Oxycodone Screen, Urine Negative Negative 06/12/2019 4:12 PM EDT [facility] Propoxyphene Screen Negative Negative 06/11 4:12 PM EDT [facility] Buprenorphine, Screen, Urine Negative Negative 06/12/2019 4:12 PM EDT [facility] Urine Urine specimen collection, clean catch / Unknown Collection / Unknown 06/12/2019 12:39 PM EDT 06/12/2019 12:49 PM EDT [facility] - 06/12/2019 4:12 PM EDT Cutoff [...] Zoe Kelly DO URINE ORDERABLES Final Result [facility]
[address] [place] [address], * (ABNORMAL) Urinalysis With Microscopic If Indicated (No Culture) - Urine, Clean Catch (06/12/2019 12:39 PM EDT) Color, UA Yellow Yellow, Straw 06/12/2019 12:53 PM EDT [facility] Appearance, UA Clear Clear 06/12/2019 12:53 PM EDT [facility] pH, UA 8.5(H) 5.0 - 8.0 06/12/2019 12:53 PM EDT [facility] Specific [place], UA 1.022 1.001 - 1.030 06/12/2019 12:53 PM EDT [facility] Glucose, UA Negative Negative 06/12/2019 12:53 PM EDT [facility] Ketones, UA Negative Negative 06/12/2019 12:53 PM EDT [facility] Bilirubin, UA Negative Negative 06/12/2019 12:53 PM EDT [facility] Blood, UA Negative Negative 06/12/2019 12:53 PM EDT [facility] Protein, UA Negative Negative 06/12/2019 12:53 PM EDT [facility] Leuk Esterase, UA Negative Negative 06/12/2019 12:53 PM EDT [facility] Nitrite, UA Negative Negative 06/12/2019 12:53 PM EDT [facility] Urobilinogen, UA 0.2 E.U./dL 0.2 - 1.0 E.U./dL 06/12/2019 12:53 PM EDT [facility] Urine Urine specimen collection, clean catch / Unknown Collection / Unknown 06/12/2019 12:39 PM EDT 06/12/2019 12:49 PM EDT Narrative [facility] - 06/12/2019 12:53 PM EDT Urine microscopic not indicated. us Magnus Wilburn MD URINE ORDERABLES Final Result Performing Organization Address City/[facility]/ZIP Co de Phone Number [facility]
[address] [place] [address], * Green Top (Gel) (06/12/2019 11:49 AM EDT) Extra Tube Hold for add-ons. 06/12/2019 1:00 PM EDT [facility] Comment:Auto resulted. Blood Line / Unknown 06/12/2019 11 :49 AM EDT 06/12/2019 11:54 AM EDT us Magnus Wilburn MD LAB BLOOD ORDER ONLY Final Re sult Performing Organization Address [facility]/ZIP Co de Phone Number [facility]
[address] [place] [address], * Lipase (06/12/2019 11:49 AM EDT) Lipase 23 13 - 60 U/L 06/12/2019 12:23 PM EDT [facility] Blood Line / Unknown 06/12/2019 11 :49 AM EDT 06/12/2019 11:54 AM EDT us Magnus Wilburn MD LAB BLOOD ORDERABLES Final Re sult Performing Organization Address City/[facility]/ZIP Co de Phone Number [facility]
[address] [place] [address], [place] [phone] * (ABNORMAL) Comprehensive Metabolic Panel (06/12/2019 11:49 AM EDT) Glucose 129(H) 65 - 99 mg/dL 06/12/2019 12:23 PM EDT [facility] BUN 6 6 - 20 mg/dL 06/12/2019 12:23 PM EDT [facility] Creatinine 0.57 0.57 - 1.00 mg/dL 06/12/2019 12:23 PM EDT [facility] Sodium 138 136 - 145 mmol/L 06/12/2019 12:23 PM EDT [facility] Potassium 4.2 3.5 - 5.2 mmol/L 06/12/2019 12:23 PM EDT [facility] Chloride 105 98 - 107 mmol/L 06/12/2019 12:23 PM EDT [facility] CO2 22.0 22.0 - 29.0 mmol/L 06/12/2019 12:23 PM EDT [facility] Calcium 9.2 8.6 - 10.5 mg/dL 06/12/2019 12:23 PM EDT [facility] Total Protein 6.9 6.0 - 8.5 g/dL 06/12/2019 12:23 PM EDT [facility] Albumin 3.90 3.50 - 5.20 g/dL 06/12/2019 12:23 PM EDT [facility] ALT (SGPT) 23 1 - 33 U/L 06/12/2019 12:23 PM T [facility] AST (SGOT) 17 1 - 32 U/L 06/12/2019 12:23 PM EDT [facility] Alkaline Phosphatase 65 39 - 117 U/L 06/12/2019 12:23 PM EDT [facility] Total Bilirubin 0.3 0.2 - 1.2 mg/dL 06/12/2019 12:23 PM T [facility] eGFR Non Amer 125 >60 mL/min/1.7 3 06/12/2019 12:23 PM EDT [facility] Globulin 3.0 gm/dL 06/12/2019 12:23 PM EDT [facility] A/G Ratio 1.3 g/dL 06/12/2019 12:23 PM EDT [facility] BUN/Creatinine Ratio 10.5 7.0 - 25.0 06/12/2019 12:23 PM EDT [facility] Anion Gap 11.0 5.0 - 15.0 mmol/L 06/12/2019 12:23 PM EDT [facility] Blood Line / Unknown 06/12/2019 11 :49 AM EDT 06/12/2019 11:54 AM EDT Narrative [facility] - 06/12/2019 12:23 PM EDT GFR Normal >60 Chronic Kidney Disease <60 Kidney Failure <15 us Magnus Wilburn MD LAB BLOOD ORDERABLES Final Re sult [facility]
[address] [place] [address], * (ABNORMAL) CBC Auto Differential (06/12/2019 11:23 AM EDT) WBC 6.28 3.40 - 10.80 10*3/mm3 06/12/2019 11:49 AM EDT [facility] RBC 4.49 3.77 - 5.28 10*6/mm3 06/12/2019 11:49 AM EDT [facility] Hemoglobin 13.3 12.0 - 15.9 g/dL 06/12/2019 11:49 AM EDT [facility] Hematocrit 39.2 34.0 - 46.6 % 06/12/2019 11:49 AM EDT [facility] MCV 87.3 79.0 - 97.0 fL 06/12/2019 11:49 AM EDT [facility] MCH 29.6 26.6 - 33.0 pg 06/12/2019 11:49 AM EDT [facility] MCHC 33.9 31.5 - 35.7 g/dL 06/12/2019 11:49 AM EDT [facility] RDW 12.1(L) 12.3 - 15.4 % 06/12/2019 11:49 AM [facility] RDW-SD 38.5 37.0 - 54.0 fl 06/12/2019 11:49 AM [facility] MPV 10.3 6.0 - 12.0 fL 06/12/2019 11:49 AM [facility] Platelets 273 140 - 450 10*3/mm3 06/12/2019 11:49 AM [facility] Neutrophil % 58.9 42.7 - 76.0 % 06/12/2019 11:49 AM [facility] Lymphocyte % 30.9 19.6 - 45.3 % 06/12/2019 11:49 AM [facility] Monocyte % 5.4 5.0 - 12.0 % 06/12/2019 11:49 AM [facility] Eosinophil % 3.8 0.3 - 6.2 % 06/12/2019 11:49 AM [facility] Basophil % 0.8 0.0 - 1.5 % 06/12/2019 11:49 AM [facility] Immature Grans % 0.2 0.0 - 0.5 % 06/12/2019 11:49 AM [facility] Neutrophils, Absolute 3.70 1.70 - 7.00 10*3/mm3 06/12/2019 11:49 AM [facility] Lymphocytes, Absolute 1.94 0.70 - 3.10 10*3/mm3 06/12/2019 11:49 AM [facility] Monocytes, Absolute 0.34 0.10 - 0.90 10*3/mm3 06/12/2019 11:49 AM [facility] Eosinophils, Absolute 0.24 0.00 - 0.40 10*3/mm3 06/12/2019 11:49 AM [facility] Basophils, Absolute 0.05 0.00 - 0.20 10*3/mm3 06/12/2019 11:49 AM [facility] Immature Grans, Absolute 0.01 0.00 - 0.05 10*3/mm3 06/12/2019 11:49 AM [facility] nRBC 0.0 0.0 - 0.2 /100 WBC 06/12/2019 11:49 AM EDT [facility] Blood Venipuncture / Unknown 06/12/2019 11:23 AM EDT 06/12/2019 11:26 AM EDT us Magnus Wilburn MD LAB BLOOD ORDERABLES Final Re sult [facility]
[address] [place] [address], [place] [phone] * Lavender Top (06/12/2019 11:23 AM EDT) Extra Tube hold for add-on 06/12/2019 12:30 PM EDT [facility] Comment:Auto resulted Blood Venipuncture / Unknown 06/12/2019 11:23 AM EDT 06/12/2019 11:26 AM EDT us Magnus Wilburn MD LAB BLOOD ORDER ONLY Final Re sult Performing Organization Address City/[facility]/ZIP Co de Phone Number [facility]
[address] [place] [address], [place] [phone] * Light Blue Top (06/12/2019 11:23 AM EDT) Extra Tube hold for add-on 06/12/2019 12:30 PM EDT [facility] Comment:Auto resulted Blood Venipuncture / Unknown 06/12/2019 11:23 AM EDT 06/12/2019 11:26 AM EDT us Magnus Wilburn MD LAB BLOOD ORDER ONLY Final Re sult [facility]
[address] [place] [address], [place] [phone] documented in this encounter Visit Diagnoses Diagnosis [...] alone Esophageal dysphagia Dysphagia, pharyngoesophageal phase Appendicolith RLQ abdominal pain Abdominal pain, right lower quadrant Esophageal dysphagia Dysphagia, pharyngoesophageal phase documented in this encounter Admitting Diagnoses Diagnosis [...] Given 06/12/2019 4:35 PM EDT 40 mg ORE-TVt-XhUd-NaSulf-Na Asc-C (MOVIPREP) powder 1,000 mL 1,000 mL, Oral, Once When Specified, On Mon06/12/19 at 1800, For 1 dose, Give first dose of MoviPrep kit at 1800 followed by second dose at 0400 Given 06/12/2019 6:19 PM EDT 1,000 mL VQK-VIq-WcWh-NaSulf-Na Asc-C (MOVIPREP) powder 1,000 mL 1,000 mL, [...] Subramanian RN) 0923 (Given - Provider: Varun Subramanian, RN) 0834 (Given - Provider: Anna Suero RN) famotidine (PEPCID) injection 20 mg (COMPLETED) 20 mg, Intravenous, Once, On Mon06/12/19 at 1137, For 1 dose, Dilute to 10 mL total volume and give IV push over 2 minutes. 1302 (Given - Provider: Anika Bruno, Tour Guide) famotidine (PEPCID) tablet 20 mg (CANCELED) 20 mg, Oral, Daily, First dose on Mon06/12/19 at 1630 1635 (Given - Provider: Varun Subramanian, RADHA) famotidine (PEPCID) tablet 20 mg (CANCELED) 20 mg, Oral, Daily, First dose (after last modification) on [place] 06/13/19 at 0900 0923 (Given - Provider: Varun Subramanian, RN) HYDROmorphone (DILAUDID) injection 0.5 mg (COMPLETED) 0.5 mg, Intravenous, Once, On Mon06/12/19 at 1411, For 1 dose, If given for pain, use the following pain scale: Mild Pain = Pain Score of 1-3, CPOT 1-2 Moderate Pain = Pain Score of 4-6, CPOT 3-4 Severe Pain = Pain Score of 7-10, CPOT 5-8 1419 (Given - Provider: Anika Bruno, Tour Guide) iopamidol (ISOVUE-300) 61 % injection 100 mL (COMPLETED) 100 mL, Intravenous, Once in Imaging, On Mon06/12/19 at 1250, For 1 dose 1246 (Given - Provider: Beverly Bustillos) ondansetron (ZOFRAN) injection 4 mg (COMPLETED) 4 mg, Intravenous, Once, On Mon06/12/19 at 1137, For 1 dose 1302 (Given - Provider: Anika Bruno, Tour Guide) ondansetron (ZOFRAN) injection 4 mg (COMPLETED) 4 mg, Intravenous, Once, On Mon06/12/19 at 1411, For 1 dose 1419 (Given - Provider: Anika Bruno, Tour Guide) pantoprazole (PROTONIX) EC tablet 40 mg 40 mg, Oral, Daily, First dose on Mon06/12/19 at 1545, Swallow whole; do not crush, split, or chew. 1635 (Given - Provider: Varun Subramanian RN) 0514 (Given - Provider: Fanny June RN) 0634 (Given - Provider: Vandana Gould RN) JMJ-XMu-CqWu-NaSulf-Na Asc-C (MOVIPREP) powder 1,000 mL (COMPLETED)(Linked Group 1) 1,000 mL, Oral, Once When Specified, On Mon06/12/19 at 1800, For 1 dose, Give first dose of MoviPrep kit at 1800 followed by second dose at 0400 1819 (Given - Provider: Varun Subramanian RN) QZX-VOo-UtId-NaSulf-Na Asc-C (MOVIPREP) powder 1,000 mL (COMPLETED)(Linked Group [...] 1301 (New Bag - Provider: Anika Bruno, Tour Guide)1345 (Stopped - Provider: Farzaneh Pro RN) sodium chloride 0.9 % bolus 1,000 mL (COMPLETED) 1,000 mL, Intravenous, at 1,000 mL/hr, Administer over 1 Hours, Once, On Mon06/12/19 at 1412, For 1 dose 1419 (New Bag - Provider: Anika Bruno, Tour Guide) sodium chloride 0.9 % flush 10 mL [...] Scheduled, First dose on Mon06/12/19 at 2100 2021 (Given - Provider: Fanny June RN) [...] June RN) 0814 (Given - Provider: Varun Moris, RN)1106 (Not Given - Provider: Varun Subramanian RN - Reason: NPO)1715 (Given - Provider: Varun Subramanian RN)2040 (Given - Provider: Vandana Gould, RADHA) 0634 (Given - Provider: Vandana Gould, RADHA)1115 (Given - Provider: Anna Suero, RADHA) valACYclovir (VALTREX) tablet 1,000 mg 1,000 mg, Oral, Daily, First dose on 06/12/19 at 1630, For 5 doses, Caution: Look alike/sound alike drug alert, Indications: Prophylaxis 1636 (Given - Provider: Varun Subramanian RN) 0923 (Given - Provider: Varun Subramanian RN) 0834 (Given - Provider: Anna Suero, RADHA) Continuous Medication Order 06/12/2019 06/13/2019 06/14/2019 lactated ringers infusion 9 mL/hr, Intravenous, Continuous, Starting on 06/12/19 at 1815, May switch to NS IV at KVO if renal / if indicated 1815 (Due) 1447 (New Bag - Provider: Kiesha Benites RN)1626 (Stopped - Provider: Varun Subramanian RN) lactated ringers infusion 20 mL/hr, Intravenous, Continuous, Starting on Coty 06/13/19 at 1448 1623 (Stopped - Provider: Varun Subramanian RN) sodium chloride 0.9 % infusion 100 mL/hr, Intravenous, Continuous, Starting on 06/12/19 at 1630 1636 (New Bag - Provider: Varun Subramanian RN) 0232 (New Bag - Provider: Fanny June RN)1335 (New Bag - Provider: Varun Subramanian RN)1710 (Currently Infusing - Provider: Varun Subramanian RN)1949 (Currently Infusing - Provider: Vandana Gould, RADHA) 0049 (Currently Infusing - Provider: Vandana Gould RN)0255 (Currently Infusing - Provider: Vandana Gould RN)0551 (Currently Infusing - Provider: Vandana Gould, RADHA) [...] = Pain Score of 7-10, CPOT 5-8 211 (Given - Provider: Vandana Gould RN) 0638 [...] Subramanian RN) 1032 (Given - Provider: Anna Suero RN) naloxone (NARCAN) injection 0.4 mg(Linked Group 3) [...] ineffective. 0514 (Given - Provider: Fanny June, RADHA)2112 (Given - Provider: Vandana Gould RN) 0834 (Given - Provider: Anna Suero [...] Subramanian RN) Linked Groups Order Group 1: RWS-MHp-DrDf-NaSulf-Na Asc-C (MOVIPREP) powder 1,000 mL (COMPLETED)Jump to med 1,000 mL, Oral, Once When Specified, On Mon06/12/19 at 1800, For 1 dose, Give first dose of MoviPrep kit at 1800 followed by second dose at 0400 Followed by JEU-EEg-SpVu-NaSulf-Na Asc-C (MOVIPREP) powder 1,000 mL (COMPLETED)Jump to [...] breaths/minute. documented in this encounter Care Teams Tester Vibrator Equipment Relationship Specialty Start Date End Date Radha Chau DO [address] [place] [address] PCP - General Family Medicine 07/30/18 02/02/20 documented as of this encounter
--- OUTSIDE RECORDS SUMMARY | 2024-01-11 19:03 | XMS_ITS | Encounter Summary ---
Author Organization [facility] Address [address] [place] [address] Care Team Providers Care Office Machine Servicer Apprentice Name Role Phone Hermila Orlando APRN Primary Care Provider [phone] Reason for Visit * Reason Onset Date Comments MK- REFERRAL 03/18/2019 Encounter Details Date Type Department Care Team (Late st Contact Info) Description 03/18/2019 Telephone [facility] [address] [place] [address] Radha Chau, [address] [place] [address] MK- REFERRAL 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 Tobacco Use Types Packs/Day Years [...] Preferred Language Not on file 11/28/2022 Comments Unknown Sex and Gender Information Value Date Recorded Sex Assigned at Not on file Legal Sex Female 1:22 PM EDT Gender Identity Not on file Sexual Orientation Not on file documented as of this encounter Miscellaneous Notes * Telephone Encounter - Radha Chau DO - 03/18/2019 8:42 AM EST Can we change referral to requested PT? * Telephone Encounter - Makenzie Oneil RegSched Rep - 03/18/2019 8:10 AM EST Patient called stating that she would like her referral to PT in [facility] to be switched to [facility] in [place], [place]. Patient states it will be easier for her to travel there since it is closer. Please advise and call patient at: [phone] documented in this encounter Plan of Treatment [...] documented as of this encounter Care Teams Office Machine Servicer Apprentice Relationship Specialty Start Date End Date Hermila Orlando APRN [address] [place] [address] PCP - General Nurse Practitioner 12/07/20 documented as of this encounter
--- OUTSIDE RECORDS SUMMARY | 2024-01-11 19:03 | XMS_ITS | Encounter Summary ---
Author Organization [facility] Address [address] [place] [address] Care Team Providers Care Superintendent House Name Role Phone Radha Chau DO Primary Care Provider [phone] Reason for Visit * Auth/Cert Specialty Diagnoses / Procedures Referred By Mikayla t Referred To Contact Diagnoses RLQ abdominal pain Procedures na Referral ID Status Reason Start Date Expiration Date Visits Re quested Visits Authorized [id number] 1 1 Encounter Details Date Type Department Care Team (Late st Contact Info) Description 06/13/2019 2:49 PM EDT Anesthesia Event [facility] [address] [place] [address] Luis Eduardo Espino MD [address] [place] [id number] Anesthesia Record Procedure Summary Procedure Name Responsible Anesthesiologist Anesthesia Start Time Anesthesia Stop Time COLONOSCOPY Luis Eduardo Espino MD 06/13/19 1449 06/13/19 1529 Events Date Time Event Comment 06/13/2019 1434 1447 AN Equip Check 1448 An Start Data 1449 An Start The patient was reevaluated immediately before moderate or deep sedation use and before anesthesia induction. 1451 An Induction 1529 Handoff to RN The following has been [...] of report from the receiving PACU/ICU team 152 An Stop 152 an stop data Meds Name Total lidocaine PF (XYLOCAINE) local injection 1% 50 mg propofol (DIPRIVAN) 10 mg/ml 100 mg propofol (DIPRIVAN) infusion 10 mg/mL 10 0 mL 955.55 mg lactated ringers infusion 0 mL * Agents Name O2 Sevoflurane * Blood No blood administrations on file. Lines, Drains, and Airways Type Details Placement Removal Peripheral IV Placement Date: 05/22 05/09; Placement Time: 1136; Change Due: 06/17/19; Catheter Size: 20 G; Orientation: Anterior, Left; Location: Forearm; Technique: Anatomical landmarks; Inserted by: Sintia Bonilla; Insertion Attempts: 1; Patient Tolerance: Tolerated well; Removal Date: 06/14/19; Removal Time: 11306/13/19 1137 by Varun Subramanian, RADHA 06/14/19 1139 by Anna Suero RN documented in this encounter 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 [...] OR Notes * Anesthesia Postprocedure Evaluation - Tawny Rogel CRNA - 06/13/2019 3:30 PM EDT Patient: Ivon Erwin Procedure Summary Date: 06/13/19 Room / Location: [facility] Anesthesia Start: 1449 Anesthesia Stop: 152 Procedures: COLONOSCOPY (N/A ) ESOPHAGOGASTRODUODENOSCOPY (N/A ) Diagnosis: RLQ abdominal pain Esophageal dysphagia (RLQ abdominal pain [R10.31]) (Esophageal dysphagia [R13.10]) Surgeon: Virgil Wallace MD Provider: Luis Eduardo Espino MD Anesthesia Type: general ASA Status: 3 Anesthesia Type: general Vitals Vitals Value Taken Time BP 125/71 06/13/2019 3:29 PM Temp Pulse 81 06/13/2019 3:29 PM Resp 16 06/13/2019 3:29 PM SpO2 96 % 06/13/2019 3:29 PM Post Anesthesia Care and Evaluation Patient location during evaluation: PACU Patient participation: complete - patient participated Level of consciousness: awake and alert Pain management: adequate Airway patency: patent Anesthetic complications: No anesthetic complications PONV Status: none Cardiovascular status: acceptable Respiratory status: acceptable Hydration status: acceptable * Anesthesia Preprocedure Evaluation - Luis Eduardo Espino MD - 06/13/2019 2:33 PM EDT Anesthesia Evaluation Patient summary reviewed and Nursing notes reviewed no history of anesthetic complications: NPO Solid Status: > 8 hours NPO Liquid Status: > 2 hours Airway Mallampati: II TM distance: >3 FB Neck ROM: full No difficulty expected Dental - normal exam Pulmonary - negative pulmonary ROS and normal exam breath sounds clear to auscultation Cardiovascular - negative cardio ROS and normal exam ECG reviewed Rhythm: regular Rate: normal Neuro/Psych (+) psychiatric history, GI/Hepatic/Renal/Endo (+) morbid obesity, GERD poorly controlled, Musculoskeletal (-) negative ROS Abdominal Substance History - negative use TRAFFIC SIGNAL MECHANIC Other - negative ROS Anesthesia Plan ASA 3 general intravenous induction Anesthetic plan, all risks, benefits, and alternatives have been provided, discussed and informed consent has been obtained with: patient. Plan discussed with SP[employer]. documented in this encounter Plan of Treatment Not on file documented as of this encounter Visit Diagnoses Not on filedocumented in this encounter Administered Medications Inactive Administered Medications - up to 3 most recent administrations Medication Order MAR Action Action Date Dose Rate Site lidocaine PF 1% (XYLOCAINE) injection As Needed, Starting on Coty 06/13/19 at 1451 Given 06/13/2019 2:51 PM EDT 50 mg propofol (DIPRIVAN) infusion 10 mg/mL 100 mL Intravenous, Continuous PRN, Starting on Coty 06/13/19 at 1451 New Bag 06/13/2019 2:51 PM EDT 180 mcg/kg/min 150.9 mL/hr Propofol (DIPRIVAN) injection Intravenous, As Needed, Starting on Coty 06/13/19 at 1451 Given 06/13/2019 2:51 PM EDT 100 mg documented in this encounter Care Teams Superintendent House Relationship Specialty Start Date End Date Radha Chau DO [address] [place] [address] PCP - General Family Medicine 07/30/18 02/02/20 documented as of this encounter
--- OUTSIDE RECORDS SUMMARY | 2024-01-11 19:03 | XMS_ITS | Encounter Summary ---
Author Organization [facility] Address [address] [place] [id number] Care Team Providers Care Mottle Lay Up Operator Name Role Phone Radha Chau DO Primary Care Provider [phone] Reason for Visit * Diagnostic Imaging (Routine) - Closed Specialty Diagnoses / Procedures Referred By Contac t Referred To Contact Radiology Diagnoses Right lower quadrant pain Procedures CT Abdomen Pelvis Without Contrast CT Abdomen Pelvis With Contrast Radha Chau DO [address] [place] [address] Phone: tel: fax: [facility] [address] [place] [address] Phone: tel: Referral ID Status Reason Start Date Expiration Date Visits Re quested Visits Authorized [id number] Closed 07/30/2018 09/15/2018 1 1 Encounter Details Date Type Department Care Team (Latest Contact Info) Description 08/03/2018 1:47 PM EDT - 08/03/2018 11:59 PM EDT Hospital Encounter [facility] [address] [place] [address] Radha Chau DO [address] [place] [address] Discharge Disposition: Home or Self Care Social [...] on file documented as of this encounter Medications at Time of Discharge amitriptyline (ELAVIL) 25 MG tablet Take one tablet at bedtime for one week then increase to two tablets at bedtime thereafter 60 tablet 1 08/01/2018 0 documented as of this encounter Plan of Treatment Not on file documented as of this encounter Procedures Procedure Name Priority Date/Time Associated Diagnosis Comments CT ABDOMEN PELVIS WO CONTRAST Routine 08/03/2018 4:14 PM EDT Right lower quadrant pain documented in this encounter Visit Diagnoses Not on filedocumented in this encounter Administered Medications Inactive Administered Medications - up to 3 most recent administrations Medication Order MAR Action Action Date Dose Rate Site barium (READI-CAT 2) suspension 450 mL 450 mL, Oral, Once in Imaging, On Mon08/03/18 at 1613, For 1 dose, {BKC} Shake well before administration. Given 08/03/2018 4:13 PM EDT 450 mL documented in this encounter Care Teams Mottle Lay Up Operator Relationship Specialty Start Date End Date Radha Chau DO [address] [place] [address] PCP - General Family Medicine 07/30/18 02/02/20 documented as of this encounter
--- OUTSIDE RECORDS SUMMARY | 2024-01-11 19:03 | XMS_ITS | Encounter Summary ---
Author Organization [facility] Address [address] [place] [id number] Care Team Providers Care Service Delivery Manager Name Role Phone Radha Chau DO Primary Care Provider [phone] Reason for Referral * Diagnostic Medical (Urgent) - Closed Specialty Diagnoses / Procedures Referred By Contac t Referred To Contact Gastroenterology Diagnoses Hematemesis, presence of nausea not specified Esophageal dysphagia Gastroesophageal reflux disease, esophagitis presence not specified Radha Chau DO [address] [place] [address] Phone: tel: fax: [facility] [address] [address] Phone: tel: fax: Referral ID Status Reason Start Date Expiration Date V isits Requested Visits Authorized [id number] Closed Specialty Services Required 06/10/2019 06/09/2020 1 1 Encounter Details Date Type Department Care Team (Late st Contact Info) Description 06/10/2019 Telephone [facility] [address] [place] [address] Radha Chau DO [address] [place] [address] 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 Tobacco Use Types [...] Miscellaneous Notes * Telephone Encounter - Valeria Mazariegos MA - 06/10/2019 10:08 AM EDT Called and spoke with patient informed her that EGD was the next step. Also informed her to go to the ER for evaluation if she see's blood again. She verbalized understanding and had no further questions. * Telephone Encounter - Radha Chau DO - 06/10/2019 8:11 AM EDT Will refer for EGD. See swallow study results. If she sees blood again, please recommend to go to ER. * Telephone Encounter - Sofia Hsieh RegSched Rep - 06/10/2019 8:06 AM EDT Pt is not doing any better she states when she vomits sometimes there is blood in it and she is still in bad pain in her lower chest and upper stomach. documented in this encounter Plan of Treatment Scheduled Referrals Name Type Priority Associated Diagnoses Orde r Schedule Ambulatory referral for Screening EGD Outpatient Referral Routine Hematemesis, presence of nausea not specified Esophageal dysphagia Gastroesophageal reflux disease, esophagitis presence not specified Ordered: 06/10/2019 documented as of this encounter Visit Diagnoses Diagnosis Hematemesis, presence of nausea not specified- Primary Esophageal dysphagia Dysphagia, pharyngoesophageal phase Gastroesophageal reflux disease, esophagitis presence not specified documented in this encounter Care Teams Service Delivery Manager Relationship Specialty Start Date End Date Radha Chau DO [address] [place], [facility] PCP - General Family Medicine 07/30/18 02/02/20 documented as of this encounter
--- OUTSIDE RECORDS SUMMARY | 2024-01-11 19:03 | XMS_ITS | Encounter Summary ---
Author Organization [facility] Address [address] [place] [address] Care Team Providers Care Brown Stock Washer Name Role Phone IsacRadha rodgers Oliva REAL Primary Care Provider [phone] Reason for Referral * Consultation (Urgent) - Closed Specialty Diagnoses / Procedures Referred By Mikayla valderrama Referred To Contact Gastroenterology Diagnoses Non-intractable vomiting with nausea, unspecified vomiting type RLQ abdominal pain Epigastric pain Esophageal dysphagia Hematemesis with nausea Melanie Gooden PA [address] [place] [address] Phone: tel: fax: [facility] [address] [address] Phone: tel: fax: Referral ID Status Reason Start Date Expiration Date V isits Requested Visits Authorized [id number] Closed Specialty Services Required 06/11/2019 06/10/2020 1 1 Reason for Visit * Reason Comments ER f/u-R side pain said appendix was enlarged and inflammed Chest tight/tender x getting worse Vomiting, diarrhea Encounter Details Date Type Department Care Team (Late st Contact Info) Description 06/11/2019 3:00 PM EDT Office Visit [facility] [address] [place] [id number] Melanie Gooden PA [address] [facility] [place] [address] Non-intractable vomiting with nausea, unspecified vomiting type (Primary Dx); RLQ abdominal pain; Epigastric pain; Esophageal dysphagia; Hematemesis with nausea 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 Tobacco Use Types Packs/Day Years [...] Sign Reading Time Taken Comments Blood Pressure 124/96 06/11/2019 2:43 PM EDT Pulse 98 06/11/2019 2:43 PM EDT Temperature 36.7 ??C (98.1 ??F) 06/11/2019 2:43 PM ED T Respiratory Rate - - Oxygen Saturation 98% 06/11/2019 2:43 PM EDT Inhaled Oxygen Concentration - - Weight 144 kg (318 lb) 06/11/2019 2:43 PM EDT Height - - Body Mass Index 51.33 06/10/2019 1:48 PM EDT documented in this encounter Progress Notes * Melanie Daigle PA - 06/11/2019 3:00 PM EDT Lola Erwin is a 28 y.o. female. History of Present Illness Pt presents for ER follow up from [facility] yesterday 06/10/19 PT had CC of epigastric pain CT abdomen and pelvis showed appendicolith with no abnormal dilatation or inflammation surroundingwith a few mildly enlarged right lower quadrant mesenteric lymph nodes of indeterminate significance Pt is under the impression that her appendix is enlarged and inflamed. Although note does not support this. She was also determined to have no fever or leukocytosis. Surgery was consulted in ER. Toldto report back if pain worsened. For the last several weeks pt has been having N/V and dysphagia. Hematemesis has been noted. Order has been placed for EGD by her primary care after barium swallow just showed small hiatal hernia and mild relfux Pt is taking pepcid and pantoprazole with little relief of symptoms sucralfate added to regime yesterday by ER . Pt has not started taking yet. Also requesting for Rx for phenergan, zofran provided gives her reflux Pt also notes she has been having diarrhea Chest feels tight and tender. (EKG and chest XR in ER were normal. Troponin negative. Lipase normal.) Gallbladder has been removed. No weight loss. Pt rates pain 10 out of 10 Pt told to follow up with PCP or ER if pain worsens Pain a lot worse today compared to yesterday. Now more RLQ pain. Hard to change positions Vomited 5 times today. Only keeping down chicken broth Vomits 11 times most days. X 3 weeks Pain started 2 weeks ago in epigastric area. Belching some Diarrhea starting yesterday. Fecal accident yesterday and today. No fever. Pain radiates to back Gallbladder removed 2005. R ovary and fallopian tube have been removed. Feels like someone is hitting her with broken brick in RLQ today. Been awhile since last A1c checked. Hx of gestational diabetes. Encourage her to schedule routine fasting visit in the future. The following portions of the patient's history were reviewed and updated as appropriate: allergies, current medications, past family history, past medical history, past social history, past surgicalhistory and problem list. Review of Systems Constitutional: Negative. Negative for chills, diaphoresis, fatigue and fever. HENT: Positive for trouble swallowing. Negative for congestion, ear discharge, ear pain, hearing loss, nosebleeds, postnasal drip, sinus pressure, sneezing and sore throat. Eyes: Negative. Respiratory: Positive for chest tightness. Negative for cough, shortness of breath and wheezing. Cardiovascular: Negative. Negative for chest pain, palpitations and leg swelling. Gastrointestinal: Positive for abdominal pain, diarrhea, nausea and vomiting. Negative for abdominal distention, blood in stool and constipation. Genitourinary: Negative. Negative for difficulty urinating, dysuria, flank pain, frequency, hematuria and urgency. Musculoskeletal: Positive for back pain. Negative for arthralgias, gait problem, joint swelling, myalgias, neck pain and neck stiffness. Skin: Negative. Negative for color change, pallor, rash and wound. Neurological: Negative for dizziness, syncope, weakness, light-headedness, numbness and headaches. Objective Blood pressure 124/96, pulse 98, temperature 98.1 ??F (36.7 ??C), weight (!) 144 kg (318 lb), SpO2 98 %. Physical Exam Constitutional: She is oriented to person, place, and time. She appears well- developed and well-nourished. HENT: Head: Normocephalic and atraumatic. Right Ear: Tympanic membrane, external ear and ear canal normal. Left Ear: Tympanic membrane, external ear and ear canal normal. Nose: Nose normal. Mouth/Throat: Oropharynx is clear and moist. No oropharyngeal exudate. Eyes: Conjunctivae are normal. Neck: Normal range of motion. Neck supple. No tracheal deviation present. No thyromegaly present. Cardiovascular: Normal rate, regular rhythm and normal heart sounds. Pulmonary/Chest: Effort normal and breath sounds normal. No respiratory distress. She has no wheezes. She has no rales. She exhibits no tenderness. Abdominal: Soft. Bowel sounds are normal. She exhibits no distension and no mass. There is tenderness in the right lower quadrant, epigastric area and left upper quadrant. There is guarding. There isno rebound. No hernia. Significant RLQ TTP with guarding Musculoskeletal: Normal range of motion. She exhibits no edema, tenderness or deformity. Lymphadenopathy: She has no cervical adenopathy. Neurological: She is alert and oriented to person, place, and time. Skin: Skin is warm and dry. Psychiatric: She has a normal mood and affect. Her behavior is normal. Judgment and thought contentnormal. Nursing note and vitals reviewed. Assessment/Plan Ivon was seen today for er f/u-r side pain, chest tight/tender and vomiting, diarrhea. Diagnoses and all orders for this visit: Non-intractable vomiting with nausea, unspecified vomiting type - sucralfate (CARAFATE) 1 g tablet; Take 1 tablet by mouth 4 (Four) Times a Day for 5 days. - promethazine (PHENERGAN) 25 MG tablet; Take 1 tablet by mouth Every 6 (Six) Hours As Needed for Nausea or Vomiting. - Ambulatory Referral to Gastroenterology RLQ abdominal pain - Ambulatory Referral to Gastroenterology Epigastric pain - Ambulatory Referral to Gastroenterology Esophageal dysphagia - Ambulatory Referral to Gastroenterology Hematemesis with nausea - Ambulatory Referral to Gastroenterology Encourage patient to start sucralfate to help with epigastric symptoms. Has not been scheduled for EGD yet. Will also try and get her worked in with GI specialty for ongoing issues. Temporary pain management provided (norco [id number]). Pt denies hx of drug addiction or abuse. Risk of this discussed. Pt agrees to only take as directed and is aware this is only a temporary Rx. Stepan reviewed and appropriate. Encourage patient to report back to ER immediately if pain does not improve or if worsening symptoms develop. Possible early appendicitis. Pt agrees. documented in this encounter Plan of Treatment Scheduled Referrals Name Type Priority Associated Diagnoses Order Schedule Ambulatory Referral to Gastroenterology Outpatient Referral Routine Non-intractable vomiting with nausea, unspecified vomiting type RLQ abdominal pain Epigastric pain Esophageal dysphagia Hematemesis with nausea Ordered: 06/11/2019 documented as of this encounter Visit Diagnoses Diagnosis Non-intractable vomiting with nausea, unspecified vomiting type- Primary RLQ abdominal pain Abdominal pain, right lower quadrant Epigastric pain Abdominal pain, epigastric Esophageal dysphagia Dysphagia, pharyngoesophageal phase Hematemesis with nausea documented in this encounter Care Teams Brown Stock Washer Relationship Specialty Start Date End Date Radha Chau DO [address] [place] [address] PCP - General Family Medicine 07/30/18 02/02/20 documented as of this encounter
--- OUTSIDE RECORDS SUMMARY | 2024-01-11 19:03 | XMS_ITS | Encounter Summary ---
Author Organization [facility] Address [address] [place] [id number] Care Team Providers Care Grinder Machine Setter Name Role Phone Radha Chau DO Primary Care Provider [phone] Encounter Details Date Type Department Care Team (Late st Contact Info) Description 06/05/2019 Telephone [facility] [address] [place] [address] Radha Chau DO [address] [place], [place] [id number] 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 Tobacco Use Types Packs/Day Years [...] Telephone Encounter - Radha Chau DO - 06/05/2019 10:33 AM EDT Reviewed. She's on my schedule today for ER follow up * Telephone Encounter - Odalis Newell MA - 06/05/2019 10:13 AM EDT FYI: sent to ER per triage nurse * Telephone Encounter - Odalis Newell GEOVANNI Salinas - 06/05/2019 10:13 AM EDT Images from the original note were not included. Severe Difficulty swallowing and difficulty breathing - sent to ED Routing comment Thea Abad RN 13 hours ago (8:59 PM) ? Reason for Disposition ??? SEVERE difficulty swallowing (e.g., drooling or spitting, can't swallow water) ??? [1] Symptoms of blocked esophagus (e.g., can't swallow normal secretions, drooling) AND [2] present now Additional Information ??? Negative: [1] Severe difficulty swallowing (e.g., drooling or spitting) AND [2] started suddenly after taking a medicine or allergic food ??? Negative: Wheezing, stridor, hoarseness, or difficulty breathing ??? Negative: [1] Swollen tongue AND [2] sudden onset ??? Negative: Sounds like a life-threatening emergency to the triager ??? Negative: Mouth ulcers are seen ??? Negative: Sore throat (throat pain with swallowing) ??? Negative: Swallowed a (non-edible) foreign body ??? Negative: Feeding tube, questions or concerns related to ??? Negative: Swelling of tongue Answer Assessment - Initial Assessment Questions 1. SYMPTOM: Are you having difficulty swallowing liquids, solids, or both? both 2. ONSET: When did the swallowing problems begin? A month and a half ago 3. CAUSE: What do you think is causing the problem? stomach 4. CHRONIC/RECURRENT: Is this a new problem for you? If no, ask: How long have you had this problem? (e.g., days, weeks, months) Less than two months 5. OTHER SYMPTOMS: Do you have any other symptoms? (e.g., difficulty breathing, sore throat, swollen tongue, chest pain) Chest pain and difficulty breathing; sore throat after vomiting 9 times 6. : Is there any chance you are ? When was your last menstrual period? na Protocols used: SWALLOWING [id number] ? Documentation Erwin, Thea Davis RN 13 hours ago (8:46 PM) Disposition Go to ED Now What would patient/caregiver have done without intervention? Would have called provider now Patient/Caregiver understands and will follow disposition? Yes Contract [facility] [place] documented in this encounter Plan of Treatment Not on file documented as of this encounter Visit Diagnoses Not on filedocumented in this encounter Care Teams Grinder Machine Setter Relationship Specialty Start Date End Date Radha Chau DO [address] [place] [address] PCP - General Family Medicine 07/30/18 02/02/20 documented as of this encounter
--- OUTSIDE RECORDS SUMMARY | 2024-01-11 19:03 | XMS_ITS | Encounter Summary ---
Author Organization [facility] Address [address] [place] [address] Care Team Providers Care Gas Turbine Assembler Name Role Phone Radha Chau DO Primary Care Provider [phone] Reason for Referral * Physical Therapy (Routine) - Closed Specialty Diagnoses / Procedures Referred By Contac t Referred To Contact Physical Therapy Diagnoses Lumbar back pain Carpal tunnel syndrome, bilateral Radha Chau DO [address] [place] [address] Phone: tel: fax: [facility] [address] [place] [address] [place] [address] Phone: tel: fax: Referral ID Status Reason Start Date Expiration Date V isits Requested Visits Authorized [id number] Closed Specialty Services Required 03/08/2019 03/07/2020 1 1 * (Routine) - Closed Specialty Diagnoses / Procedures Referred By Contac t Referred To Contact Radiology Diagnoses Lumbar back pain Procedures XR Spine Lumbar 4+ View Radha Chau DO [address] [place] [address] Phone: tel: fax: Referral ID Status Reason Start Date Expiration Date Visits Re quested Visits Authorized [id number] Closed 03/08/2019 03/07/2020 1 1 Reason for Visit * Reason Comments Right side low back pain for the past se veral months hypokalemia found at [facility] ER approx 1 month ago Encounter Details Date Type Department Care Team (Late st Contact Info) Description 03/08/2019 5:30 PM EST Office Visit [facility] [address] [place] [address] Radha Chau DO [address] [place] [address] Lumbar back pain (Primary Dx); Carpal tunnel syndrome, bilateral; Hypokalemia; HSV (herpes simplex virus) infection 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 [...] Sign Reading Time Taken Comments Blood Pressure 120/80 03/08/2019 5:26 PM EST Pulse 104 03/08/2019 5:26 PM EST Temperature 36.4 ??C (97.6 ??F) 03/08/2019 5:26 PM ES T Respiratory Rate 16 03/08/2019 5:26 PM EST Oxygen Saturation - - Inhaled Oxygen Concentration - - Weight 143 kg (315 lb 9.6 oz) 03/08/2019 5:26 PM EST Height 167.6 cm (5' 5.98 ) 03/08/2019 5:26 PM ES T Body Mass Index 50.96 03/08/2019 5:26 PM EST documented in this encounter Patient Instructions * Patient Instructions* Radha Chau DO - 03/08/2019 5:30 PM EST Images from the original note were not included. Go to the nearest ER or return to clinic if symptoms worsen, fever/chill develop Back Exercises These exercises help to make your trunk and back strong. They also help to keep the lower back flexible. Doing these exercises can help to prevent back pain or lessen existing pain. ?? If you have back pain, try to do these exercises 2-3 times each day or as told by your doctor. ?? As you get better, do the exercises once each day. Repeat the exercises more often as told by your doctor. ?? To stop back pain from coming back, do the exercises once each day, or as told by your doctor. Exercises Single knee to chest Do these steps 3-5 times in a row for each le. Lie on your back on a firm bed or the floor with your legs stretched out. 2. Bring one knee to your chest. 3. Grab your knee or thigh with both hands and hold them it in place. 4. Pull on your knee until you feel a gentle stretch in your lower back or buttocks. 5. Keep doing the stretch for 10-30 seconds. 6. Slowly let go of your leg and straighten it. Pelvic tilt Do these steps 5-10 times in a row: 1. Lie on your back on a firm bed or the floor with your legs stretched out. 2. Bend your knees so they point up to the ceiling. Your feet should be flat on the floor. 3. Tighten your lower belly (abdomen) muscles to press your lower back against the floor. This willmake your tailbone point up to the ceiling instead of pointing down to your feet or the floor. 4. Stay in this position for 5-10 seconds while you gently tighten your muscles and breathe evenly. Cat-cow Do these steps until your lower back bends more easily: 1. Get on your hands and knees on a firm surface. Keep your hands under your shoulders, and keep your knees under your hips. You may put padding under your knees. 2. Let your head hang down toward your chest. Tighten (contract) the muscles in your belly. Point your tailbone toward the floor so your lower back becomes rounded like the back of a cat. 3. Stay in this position for 5 seconds. 4. Slowly lift your head. Let the muscles of your belly relax. Point your tailbone up toward the ceiling so your back forms a sagging arch like the back of a cow. 5. Stay in this position for 5 seconds. Press-ups Do these steps 5-10 times in a row: 1. Lie on your belly (face-down) on the floor. 2. Place your hands near your head, about shoulder-width apart. 3. While you keep your back relaxed and keep your hips on the floor, slowly straighten your arms toraise the top half of your body and lift your shoulders. Do not use your back muscles. You may change where you place your hands in order to make yourself more comfortable. 4. Stay in this position for 5 seconds. 5. Slowly return to lying flat on the floor. Bridges Do these steps 10 times in a row: 1. Lie on your back on a firm surface. 2. Bend your knees so they point up to the ceiling. Your feet should be flat on the floor. Your arms should be flat at your sides, next to your body. 3. Tighten your butt muscles and lift your butt off the floor until your waist is almost as high asyour knees. If you do not feel the muscles working in your butt and the back of your thighs, slide your feet 1-2 inches farther away from your butt. 4. Stay in this position for 3-5 seconds. 5. Slowly lower your butt to the floor, and let your butt muscles relax. If this exercise is too easy, try doing it with your arms crossed over your chest. Belly crunches Do these steps 5-10 times in a row: 1. Lie on your back on a firm bed or the floor with your legs stretched out. 2. Bend your knees so they point up to the ceiling. Your feet should be flat on the floor. 3. Cross your arms over your chest. 4. Tip your chin a little bit toward your chest but do not bend your neck. 5. Tighten your belly muscles and slowly raise your chest just enough to lift your shoulder blades a tiny bit off of the floor. Avoid raising your body higher than that, because it can put too much stress on your low back. 6. Slowly lower your chest and your head to the floor. Back lifts Do these steps 5-10 times in a row: 1. Lie on your belly (face-down) with your arms at your sides, and rest your forehead on the floor. 2. Tighten the muscles in your legs and your butt. 3. Slowly lift your chest off of the floor while you keep your hips on the floor. Keep the back of your head in line with the curve in your back. Look at the floor while you do this. 4. Stay in this position for 3-5 seconds. 5. Slowly lower your chest and your face to the floor. Contact a doctor if: ?? Your back pain gets a lot worse when you do an exercise. ?? Your back pain does not get better 2 hours after you exercise. If you have any of these problems, stop doing the exercises. Do not do them again unless your doctor says it is okay. Get help right away if: ?? You have sudden, very bad back pain. If this happens, stop doing the exercises. Do not do them again unless your doctor says it is okay. This information is not intended to replace advice given to you by your health care provider. Make sure you discuss any questions you have with your health care provider. Document Released: 03/11/2011 Document Revised: 11/01/2018 Document Reviewed: 11/01/2018 [employer] Patient Education ?? 2019 [employer] documented in this encounter Progress Notes * Radha Chau DO - 03/08/2019 5:30 PM EST Subjective Ivon Erwin is a 28 y.o. female. Chief Complaint Patient presents with ??? Right side low back pain for the past several months ??? hypokalemia found at [facility] ER approx 1 month ago Back Pain This is a new problem. The current episode started more than 1 month ago (No injury ). The problem occurs daily. The problem is unchanged. The pain is present in the lumbar spine and sacro-iliac (right side). The quality of the pain is described as burning and aching. The pain radiates to the left thigh and right thigh. The pain is at a severity of 8/10. The pain is moderate. The pain is worse during the night. The symptoms are aggravated by sitting and position. Stiffness is present at night. Associated symptoms include numbness (right back and bilateral hands). Pertinent negatives include no abdominal pain, bladder incontinence, bowel incontinence, chest pain, dysuria, fever or weakness. Risk factors include obesity. She has tried heat and NSAIDs for the symptoms. The treatment providedmild relief. Back pain is worse while she is working and after getting out of her van. Labs completed at [facility] ER 1 month ago, hypokalemia present. They did not put her on any replacement. Needs to recheck. Bilateral hand pain and numbness x 3 months. Symptoms located in palmar surface digits 1 through 3. Wakes her up at night and experiences symptoms at work. 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 She also requests refill of Valtrex. The following portions of the patient's history were reviewed and updated as appropriate: allergies, current medications, past family history, past medical history, past social history, past surgicalhistory and problem list. Review of Systems Constitutional: Positive for unexpected weight gain. Negative for appetite change, chills and fever. Respiratory: Negative for cough and shortness of breath. Cardiovascular: Negative for chest pain and palpitations. Gastrointestinal: Negative for abdominal pain and bowel incontinence. Genitourinary: Negative for dysuria and urinary incontinence. Musculoskeletal: Positive for back pain. Negative for gait problem. Neurological: Positive for numbness (right back and bilateral hands). Negative for weakness. Objective Physical Exam Constitutional: She is oriented to person, place, and time. She appears well- developed and well-nourished. HENT: Head: Normocephalic and atraumatic. Right Ear: External ear normal. Left Ear: External ear normal. Nose: Nose normal. Eyes: Conjunctivae are normal. Cardiovascular: Normal rate, regular rhythm and normal heart sounds. Pulmonary/Chest: Effort normal and breath sounds normal. Abdominal: obese Musculoskeletal: She exhibits no deformity. Lumbar back: She exhibits decreased range of motion, tenderness and spasm (bilateral paraspinal). Neurological: She is alert and oriented to person, place, and time. Positive Phalen and Tinel's test bilaterally Skin: Skin is warm. Psychiatric: Her behavior is normal. Nursing note and vitals reviewed. Assessment/Plan Ivon was seen today for right side low back pain and hypokalemia. Diagnoses and all orders for this visit: Lumbar back pain - XR Spine Lumbar 4+ View - predniSONE (DELTASONE) 20 MG tablet; Take 3 tabs po qd x 2 days, 2 tabs po qd x 3 days, 1 tab po qd x 3 days, 1/2 tab po qd x 2 days - cyclobenzaprine (FLEXERIL) 10 MG tablet; Take 0.5-1 tablets by mouth 3 (Three) Times a Day As Needed for Muscle Spasms. - Ambulatory Referral to Physical Therapy Evaluate and treat - Comprehensive Metabolic Panel Carpal tunnel syndrome, bilateral - predniSONE (DELTASONE) 20 MG tablet; Take 3 tabs po qd x 2 days, 2 tabs po qd x 3 days, 1 tab po qd x 3 days, 1/2 tab po qd x 2 days - Ambulatory Referral to Physical Therapy Evaluate and treat - Elastic Bandages & Supports (WRIST SPLINT/COCK-UP/LEFT XL) misc; Use as needed for carpal tunnel - Elastic Bandages & Supports (WRIST SPLINT/COCK-UP/RIGHT XL) misc; Use as needed for carpal tunnel - Comprehensive Metabolic Panel Hypokalemia - Comprehensive Metabolic Panel HSV (herpes simplex virus) infection - valACYclovir (VALTREX) 1000 MG tablet; Take 1 tablet by mouth Daily. Steroid taper and muscle relaxer to improve back pain. Will evaluate with x-ray and refer to physical therapy for additional treatment. Orders for splints provided to her for treatment of carpal tunnel syndrome. She will return next week to complete lab. documented in this encounter Plan of Treatment Scheduled Referrals Name Type Priority Associated Diagnoses Order Schedule Ambulatory Referral to Physical Therapy Evaluate and treat Outpatient Referral Routine Lumbar back pain Carpal tunnel syndrome, bilateral Ordered: 03/08/2019 documented as of this encounter Procedures Procedure Name Priority Date/Time Associated Diagnosis Comments XR SPINE LUMBAR COMPLETE 4+VW Routine 03/12/2019 2:06 PM EST Lumbar back pain COMPREHENSIVE METABOLIC PANEL Routine 03/12/2019 1:46 PM EST Lumbar back pain Carpal tunnel syndrome, bilateral Hypokalemia documented in this encounter Results * XR Spine Lumbar 4+ View (03/12/2019 2:06 PM EST) Anatomical Region Laterality Modality Spine, L-spine N/A Radiographic [place] ging 03/13/2019 4:57 PM EST Impressions 03/14/2019 2:43 PM EST No acute fracture or malalignment. DICTATED: ?? 03/13/2019 EDITED/ls : ?? 03/13/2019 This report was finalized on 03/14/2019 2:[address] Nona Mireles MD. Narrative 03/14/2019 2:43 PM EST EXAMINATION: XR SPINE LUMBAR COMPLETE 4 VIEWS - 03/12/2019 INDICATION: M54.5-Low back pain. COMPARISON: None. FINDINGS: Imaging of the pelvis, AP, lateral, both oblique, and spot views of the lumbar spine reveal no evidence of acute fracture or malalignment. Vertebral body height and disc spaces are preserved. Facets are well aligned. Pedicles are intact. No fracture or dislocation. ? Procedure Note Nona Mireles MD - 03/14/2019 EXAMINATION: XR SPINE LUMBAR COMPLETE 4 VIEWS - 03/12/2019 INDICATION: M54.5-Low back pain. COMPARISON: None. FINDINGS: Imaging of the pelvis, AP, lateral, both oblique, and spot views of the lumbar spine reveal no evidence of acute fracture or malalignment. Vertebral body height and disc spaces are preserved. Facets are well aligned. Pedicles are intact. No fracture or dislocation. IMPRESSION: No acute fracture or malalignment. DICTATED: 03/13/2019 EDITED/ls : 03/13/2019 This report was finalized on 03/14/2019 2:[address] Nona Mireles MD. Radha Chau DO [facility] Final Result * Comprehensive Metabolic Panel (03/12/2019 1:46 PM EST) [facility] Signature Glucose 99 65 - 99 mg/dL 03/14/2019 7:08 AM EST [facility] BUN 8 6 - 20 mg/dL 03/14/2019 7:08 AM EST [facility] Creatinine 0.66 0.57 - 1.00 mg/dL 03/14/2019 7:08 AM EST [facility] eGFR Non Am 119 >59 mL/min/1.7 3 03/14/2019 7:08 AM EST [facility] eGFR Am 137 >59 mL/min/1.7 3 03/14/2019 7:08 AM EST [facility] BUN/Creatinine Ratio 12 9 - 23 03/14/2019 7:08 AM EST [facility] Sodium 139 134 - 144 mmol/L 03/14/2019 7:08 AM EST [facility] Potassium 4.1 3.5 - 5.2 mmol/L 03/14/2019 7:08 AM EST [facility] Chloride 105 96 - 106 mmol/L 03/14/2019 7:08 AM EST [facility] Total CO2 21 20 - 29 mmol/L 03/14/2019 7:08 AM EST [facility] Calcium 9.1 8.7 - 10.2 mg/dL 03/14/2019 7:08 AM EST [facility] Total Protein 7.0 6.0 - 8.5 g/dL 03/14/2019 7:08 AM EST [facility] Albumin 4.4 3.9 - 5.0 g/dL 03/14/2019 7:08 AM EST [facility] Comment:Please note refere nce interval change Globulin 2.6 1.5 - 4.5 g/dL 03/14/2019 7:08 AM EST [facility] A/G Ratio 1.7 1.2 - 2.2 03/14/2019 7:08 AM EST [facility] Total Bilirubin <0.2 0.0 - 1.2 mg/dL 03/14/2019 7:08 AM EST [facility] Alkaline Phosphatase 66 39 - 117 IU/L 03/14/2019 7:08 AM EST [facility] AST (SGOT) 12 0 - 40 IU/L 03/14/2019 7:08 AM EST [facility] ALT (SGPT) 18 0 - 32 IU/L 03/14/2019 7:08 AM EST [facility] Blood Venipuncture / Unknown 03/12/2019 1:46 PM EST 03/12/2019 1:46 PM EST Narrative [facility] - 03/14/2019 7:08 AM EST Performed at: ?? - [facility] [address] ??[id number] Consumer Loan Underwriter: Navjot Sanches PhD, Phone: ??[phone] us Radha Chau DO LAB BLOOD ORDERABLES Final Result [facility] [address] [place] [address], documented in this encounter Visit Diagnoses Diagnosis Lumbar back pain- Primary Lumbago Carpal tunnel syndrome, bilateral Carpal tunnel syndrome Hypokalemia Hypopotassemia HSV (herpes simplex virus) infection Herpes simplex without mention of complication documented in this encounter Care Teams Gas Turbine Assembler Relationship Specialty Start Date End Date Radha Chau DO [address] [place] [address] PCP - General Family Medicine 07/30/18 02/02/20 documented as of this encounter
--- OUTSIDE RECORDS SUMMARY | 2024-01-11 19:03 | XMS_ITS | Encounter Summary ---
Author Organization [facility] Address [address] [place] [id number] Care Team Providers Care Casting Coordinator Name Role Phone Radha Chau DO Primary Care Provider [phone] Reason for Referral * Diagnostic Imaging (Routine) - Closed Specialty Diagnoses / Procedures Referred By Contgloria t Referred To Contact Radiology Diagnoses Odynophagia Esophageal dysphagia Procedures FL esophagram complete Radha Chau DO [address] [facility] [place] [address] Phone: tel: fax: [address] [address] Phone: tel: Referral ID Status Reason Start Date Expiration Date Visits Re quested Visits Authorized [id number] Closed 06/05/2019 06/04/2020 1 1 Reason for Visit * Reason Comments FU from [facility] ER seen there last ni ght choking on food Encounter Details Date Type Department Care Team (Late st Contact Info) Description 06/05/2019 2:00 PM EDT Office Visit [facility] [address] [place] [address] Radha Chau DO [address] [facility] [place] [address] Odynophagia (Primary Dx); Esophageal dysphagia; Gastroesophageal reflux disease, esophagitis presence not specified [...] Sign Reading Time Taken Comments Blood Pressure 130/80 06/05/2019 2:21 PM EDT Pulse 92 06/05/2019 2:21 PM EDT Temperature 37.4 ??C (99.3 ??F) 06/05/2019 2:21 PM ED T Respiratory Rate 16 06/05/2019 2:21 PM EDT Oxygen Saturation - - Inhaled Oxygen Concentration - - Weight 142 kg (314 lb) 06/05/2019 2:21 PM EDT Height 167.6 cm (5' 5.98 ) 06/05/2019 2:21 PM ED T Body Mass Index 50.71 06/05/2019 2:21 PM EDT documented in this encounter Patient Instructions * Patient Instructions* Radha Chau DO - 06/05/2019 2:00 PM EDT Images from the original note were not included. Go to the nearest ER or return to clinic if symptoms worsen, fever/chill develop Dysphagia Eating Plan, Pureed This diet is helpful for people with moderate to severe swallowing problems. Pureed foods are smooth and are prepared without lumps so that they can be swallowed safely. Work with your health care provider and your diet and customer operations specialist (dietitian) to make sure that you are following the diet safely and getting all the nutrients you need. What are tips for following this plan? General instructions ?? You may eat foods that are soft and have a pudding-like texture. ?? Do not eat foods that you have to chew. If you have to chew the food, then you cannot eat it. ?? Avoid foods that are hard, dry, sticky, chunky, lumpy, or stringy. Also avoid foods with nuts, seeds, raisins, skins, or pulp. ?? You may be instructed to thicken liquids. Follow your health care provider's instructions about how to do this and to what consistency. Cooking ?? If a food is not originally a smooth texture, you may be able to eat the food after: ? Pureeing it. This can be done with a dye blender. ? Moistening it. This can be done by adding juice, cooking liquid, gravy, or sauce to a dry food and then pureeing it. For example, you may have bread if you soak it in milk and puree it. ?? If a food is too thin, you may add a commercial thickener, corn starch, rice cereal, or potato flakes to thicken it. ?? Strain and throw away any liquid that separates from a solid pureed food before eating. ?? Strain lumps, chunks, pulp, and seeds from pureed foods before eating. ?? Reheat foods slowly to prevent a tough crust from forming. Meal planning ?? Eat a variety of foods to get all the nutrients you need. ?? Add dry milk or protein powder to food to increase calories and protein content. ?? Follow your meal plan as told by your dietitian. What foods are allowed? The items listed may not be a complete list. Talk with your dietitian about what dietary choices are best for you. Grains Soft breads, pancakes, Mongolian toast, muffins, and bread stuffing pureed to a smooth, moist texture,without nuts or seeds. Cooked cereals that have a pudding- like consistency, such as cream of wheat or farina. Pureed oatmeal. Pureed, well-cooked pasta and rice. Vegetables Pureed vegetables. Smooth tomato paste or sauce. Mashed or pureed potatoes without skin. Fruits Pureed fruits such as melons and apples without seeds or pulp. Mashed bananas. Mashed avocado. Fruit juices without pulp or seeds. Meats and other protein foods Pureed meat, poultry, and fish. Smooth paredes or liverwurst. Smooth souffles. Pureed beans (such as lentils). Pureed eggs. Smooth nut and seed butters. Pureed tofu. Dairy Yogurt. Milk. Pureed cottage cheese. Nutritional dairy drinks or shakes. Cream cheese. Smooth pudding, ice cream, sherbet, and malts. Fats and oils Butter. Margarine. Vegetable oils. Smooth and strained gravy. Sour cream. Mayonnaise. Smooth saucessuch as white sauce, cheese sauce, or hollandaise sauce. Sweets and desserts Moistened and pureed cookies and cakes. Whipped topping. Gelatin. Pudding pops. Seasoning and other foods Finely ground spices. Jelly. Honey. Pureed casseroles. Strained soups. Pureed sandwiches. Beverages Anything prepared at the consistency recommended by your dietitian. What foods are not allowed? The items listed may not be a complete list. Talk with your dietitian about what dietary choices are best for you. Grains Oatmeal. Dry cereals. Hard breads. Breads with seeds or nuts. Whole pasta, rice, or other grains. Whole pancakes, waffles, biscuits, muffins, or rolls. Vegetables Whole vegetables. Stringy vegetables (such as celery). Tomatoes or tomato sauce with seeds. Fried vegetables. Fruits Whole fresh, frozen, canned, or dried fruits that have not been pureed. Stringy fruits, such as pineapple or coconut. Watermelon with seeds. Dried fruit or fruit leather. Meat and other protein foods Whole or ground meat, fish, or poultry. Dried or cooked lentils or legumes that have been cooked but not mashed or pureed. Non-pureed eggs. Nuts and seeds. Crunchy peanut butter. Whole tofu or other meat alternatives. Dairy Cheese cubes or slices. Non-pureed cottage cheese. Yogurt with fruit chunks. Fats and oils All fats and sauces that have lumps or chunks. Sweets and desserts Solid desserts. Sticky, chewy sweets (such as licorice and caramel). Candy with nuts or coconut. Seasoning and other foods Coarse or seeded herbs and spices. [place] preserves. Jams with seeds. Whole sandwiches. Non-pureed casseroles. [place] soups. Summary ?? Pureed foods can be helpful for people with moderate to severe swallowing problems. ?? On the dysphagia eating plan, you may eat foods that are soft and have a pudding-like texture. You should avoid foods that you have to chew. If you have to chew the food, then you cannot eat it. ?? You may be instructed to thicken liquids. Follow your health care provider's instructions about how to do this and to what consistency. This information is not intended to replace advice given to you by your health care provider. Make sure you discuss any questions you have with your health care provider. Document Released: 02/06/2006 Document Revised: 04/11/2017 Document Reviewed: 04/11/2017 [employer] Patient Education ?? 2020 [employer]. Dysphagia Eating Plan, Bite Size Food This diet plan is for people with moderate swallowing problems who have transitioned from pureed and minced foods. Bite size foods are soft and cut into small chunks so that they can be swallowed safely. On this eating plan, you may be instructed to drink liquids that are thickened. Work with your health care provider and your diet and customer operations specialist (dietitian) to make surethat you are following the diet safely and getting all the nutrients you need. What are tips for following this plan? General guidelines for foods ?? You may eat foods that are tender, soft, and moist. ?? Always test food texture before taking a bite. Poke food with a fork or spoon to make sure it istender. ?? Food should be easy to cut and shew. Avoid large pieces of food that require a lot of chewing. ?? Take small bites. Each bite should be smaller than your thumb nail (about 15mm by 15 mm). ?? If you were on pureed and minced food diet plans, you may eat any of the foods included in thosediets. ?? Avoid foods that are very dry, hard, sticky, chewy, coarse, or crunchy. ?? If instructed by your health care provider, thicken liquids. Follow your health care provider's instructions for what products to use, how to do this, and to what thickness. ? Your health care provider may recommend using a commercial thickener, rice cereal, or potato flakes. Ask your health care provider to recommend thickeners. ? Thickened liquids are usually a ???pudding-like?? consistency, or they may be as thick as honey or thick enough to eat with a spoon. Cooking ?? To moisten foods, you may add liquids while you are blending, mashing, or grinding your foods tothe right consistency. These liquids include gravies, sauces, vegetable or fruit juice, milk, half and half, or water. ?? Strain extra liquid from foods before eating. ?? Reheat foods slowly to prevent a tough crust from forming. ?? Prepare foods in advance. Meal planning ?? Eat a variety of foods to get all the nutrients you need. ?? Some foods may be tolerated better than others. Work with your dietitian to identify which foodsare safest for you to eat. ?? Follow your meal plan as told by your dietitian. What foods are allowed? Grains Moist breads without nuts or seeds. Biscuits, muffins, pancakes, and waffles that are well-moistened with syrup, jelly, margarine, or butter. Cooked cereals. Moist bread stuffing. Moist rice. Well-moistened cold cereal with small chunks. Well-cooked pasta, noodles, rice, and bread dressing in smallpieces and thick sauce. Soft dumplings or spaetzle in small pieces and butter or gravy. Vegetables Soft, well-cooked vegetables in small pieces. Soft-cooked, mashed potatoes. Thickened vegetable juice. Fruits Canned or cooked fruits that are soft or moist and do not have skin or seeds. Fresh, soft bananas. Thickened fruit juices. Meat and other protein foods Tender, moist meats or poultry in small pieces. Moist meatballs or meatloaf. Fish without bones. Eggs or egg substitutes in small pieces. Tofu. [place]pe[place] and meat alternatives in small pieces. Well-cooked, tender beans, peas, baked beans, and other legumes. Dairy Thickened milk. Cream cheese. Yogurt. Cottage cheese. Sour cream. Small pieces of soft cheese. Fats and oils Butter. Oils. Margarine. Mayonnaise. Gravy. Spreads. Sweets and desserts Soft, smooth, moist desserts. Pudding. Custard. Moist cakes. Jam. Jelly. Honey. Preserves. Ask yourhealth care provider whether you can have frozen desserts. Seasoning and other foods All seasonings and sweeteners. All sauces with small chunks. Prepared tuna, egg, or chicken salad without raw fruits or vegetables. Moist casseroles with small, tender pieces of meat. Soups with tender meat. What foods are not allowed? Grains Coarse or dry cereals. Dry breads. [place]. Crackers. Tough, crusty breads, such as Mongolian bread and baguettes. Dry pancakes, waffles, and muffins. Sticky rice. Dry bread stuffing. Granola. Popcorn. Chips. Vegetables All raw vegetables. Cooked corn. Rubbery or stiff cooked vegetables. Stringy vegetables, such as celery. Tough, crisp fried potatoes. Potato skins. Fruits Hard, crunchy, stringy, high-pulp, and juicy raw fruits such as apples, pineapple, papaya, and watermelon. Small, round fruits, such as grapes. Dried fruit and fruit leather. Meat and other protein foods Large pieces of meat. Dry, tough meats, such as casas, sausage, and hot dogs. Chicken, turkey, or fish with skin and bones. Crunchy peanut butter. Nuts. Seeds. Nut and seed butters. Dairy Yogurt with nuts, seeds, or large chunks. Large chunks of cheese. Frozen desserts and milk consistency not allowed by your dietitian. Sweets and desserts Dry cakes. Chewy or dry cookies. Any desserts with nuts, seeds, dry fruits, coconut, pineapple, or anything dry, sticky, or hard. Chewy caramel. Licorice. Taffy-type candies. Ask your health care provider whether you can have frozen desserts. Seasoning and other foods Soups with tough or large chunks of meats, poultry, or vegetables. [place] or clam chowder. Smoothies with large chunks of fruit. Summary ?? Bite size foods can be helpful for people with moderate swallowing problems. ?? On the dysphagia eating plan, you may eat foods that are soft, moist, and cut into pieces smaller than 15mm by 15mm. ?? You may be instructed to thicken liquids. Follow your health care provider's instructions about how to do this and to what consistency. This information is not intended to replace advice given to you by your health care provider. Make sure you discuss any questions you have with your health care provider. Document Released: 02/06/2006 Document Revised: 05/19/2017 Document Reviewed: 05/19/2017 [employer] Patient Education ?? 2020 [employer]. documented in this encounter Progress Notes * Radha Chau DO - 06/05/2019 2:00 PM EDT Lola Erwin is a 28 y.o. female. Chief Complaint Patient presents with ??? FU from [facility] ER seen there last night ??? choking on food History of Present Illness She was seen at [facility] ER last night due to difficulty swallowing both foods and liquids. This started 1.5 months ago, symptoms getting worse. She is unable to eat or drink without choking since last night. Barium swallow study was ordered, but she prefers to not complete this at [facility]. At ER, she was treated with Pepcid IV, Protonix IV and IVF, discharged with a prescription of Pepcid. The following portions of the patient's history were reviewed and updated as appropriate: allergies, current medications, past family history, past medical history, past social history, past surgicalhistory and problem list. Review of Systems Constitutional: Negative for chills and fever. HENT: Positive for trouble swallowing. Negative for congestion and sore throat. Respiratory: Negative. Cardiovascular: Negative. Gastrointestinal: Positive for abdominal pain (epigastric) and indigestion. Negative for GERD. Genitourinary: Negative for dysuria, frequency and hematuria. Skin: Negative for rash. Neurological: Negative for headache. Objective Physical Exam Constitutional: She appears well-developed and well-nourished. HENT: Head: Normocephalic and atraumatic. Right Ear: External ear normal. Left Ear: External ear normal. Nose: Nose normal. Eyes: Conjunctivae are normal. Cardiovascular: Normal rate, regular rhythm and normal heart sounds. No murmur heard. Pulmonary/Chest: Effort normal and breath sounds normal. Abdominal: Soft. Bowel sounds are normal. There is no tenderness. Musculoskeletal: She exhibits no deformity. Neurological: She is alert. Skin: Skin is warm. Psychiatric: She has a normal mood and affect. Her behavior is normal. Nursing note and vitals reviewed. Assessment/Plan Ivon was seen today for fu from [facility] er and choking on food. Diagnoses and all orders for this visit: Odynophagia - FL esophagram complete - pantoprazole (Protonix) 40 MG EC tablet; Take 1 tablet by mouth Daily. Esophageal dysphagia - FL esophagram complete - pantoprazole (Protonix) 40 MG EC tablet; Take 1 tablet by mouth Daily. Gastroesophageal reflux disease, esophagitis presence not specified - pantoprazole (Protonix) 40 MG EC tablet; Take 1 tablet by mouth Daily. Swallow study ordered. Consider EGD. PPI added to treatment. Encouraged to pureed food to prevent choking. documented in this encounter Plan of Treatment Not on file documented as of this encounter Procedures Procedure Name Priority Date/Time Associated Diagnosis Comments FL ESOPHAGRAM SINGLE CONTRAST Routine 06/07/2019 9:41 AM EDT Odynophagia Esophageal dysphagia documented in this encounter Results * FL esophagram complete (06/07/2019 9:41 AM EDT) Anatomical Region Laterality Modality Head and Neck N/A Radio Fluoroscop y 06/07/2019 1:48 PM EDT Impressions 06/09/2019 10:33 PM EDT 1. Mild gastroesophageal reflux to the level of the cervical esophagus 2. Small sized sliding-type hiatal hernia ?? This report was finalized on 06/09/2019 10:[address] Jadon Hinton MD. Narrative 06/09/2019 10:33 PM EDT EXAMINATION: FL ESOPHAGRAM COMPLETE SINGLE-CONTRAST- INDICATION: choking, both solids and liquids; R13.10-Dysphagia, unspecified; R13.10-Dysphagia, unspecified TECHNIQUE: 1 minute and 18 seconds of fluoroscopic time was used for this exam. 17 associated images were saved. Form Grader Operator imaging reveals a nonobstructive bowel gas pattern. There are surgical clips visible in the gallbladder fossa. COMPARISON: NONE FINDINGS: Under fluoroscopic observation, the patient ingested thin barium. The oral phase of deglutition appeared normal. The esophageal mucosa appeared grossly normal. There was mild gastroesophageal reflux to the level of the cervical esophagus. There was no evidence of a focal esophageal stricture. Examination of the stomach demonstrated a small sized sliding-type hiatal hernia. Procedure Note Coral Rivera PA - 06/09/2019 EXAMINATION: FL ESOPHAGRAM COMPLETE SINGLE-CONTRAST- INDICATION: choking, both solids and liquids; R13.10-Dysphagia, unspecified; R13.10-Dysphagia, unspecified TECHNIQUE: 1 minute and 18 seconds of fluoroscopic time was used for this exam. 17 associated images were saved. Form Grader Operator imaging reveals a nonobstructive bowel gas pattern. There are surgical clips visible in the gallbladder fossa. COMPARISON: NONE FINDINGS: Under fluoroscopic observation, the patient ingested thin barium. The oral phase of deglutition appeared normal. The esophageal mucosa appeared grossly normal. There was mild gastroesophageal reflux to the level of the cervical esophagus. There was no evidence of a focal esophageal stricture. Examination of the stomach demonstrated a small sized sliding-type hiatal hernia. IMPRESSION: 1. Mild gastroesophageal reflux to the level of the cervical esophagus 2. Small sized sliding-type hiatal hernia This report was finalized on 06/09/2019 10:[address] Jadon Hinton MD. Radha Chau DO IMG FLUOROSCOPY ORDERABLES Final Result documented in this encounter Visit Diagnoses Diagnosis Odynophagia- Primary Dysphagia, unspecified Esophageal dysphagia Dysphagia, pharyngoesophageal phase Gastroesophageal reflux disease, esophagitis presence not specified documented in this encounter Care Teams Casting Coordinator Relationship Specialty Start Date End Date Radha Chau DO [address] [place] [address] PCP - General Family Medicine 07/30/18 02/02/20 documented as of this encounter
--- OUTSIDE RECORDS SUMMARY | 2024-01-11 19:03 | XMS_ITS | Encounter Summary ---
Author Organization [facility] Address [address] [place] [id number] Care Team Providers Care Clinical Trials Data Coordinator Name Role Phone Radha Chau DO Primary Care Provider [phone] Reason for Visit * Reason Onset Date Comments APPT NEEDED? 05/10/2019 Encounter Details Date Type Department Care Team (Late st Contact Info) Description 05/10/2019 Telephone [facility] [address] [facility] [place] [address] Radha Chau DO [address] [place] [address] APPT NEEDED? 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 Tobacco Use Types Packs/Day Years [...] Miscellaneous Notes * Telephone Encounter - Valeria Lozano MA - 05/10/2019 12:47 PM EDT Informed pt to continue taking her antibiotic which may be causing the diarrhea. Drink plenty of fluids. Pt asking for something for her dizziness. Informed her to contact Clinic since they diagnosed her and not us. She understood. * Telephone Encounter - Dora Aldana RegSched Rep - 05/10/2019 12:22 PM EDT PT WENT TO [facility] YESTERDAY AND WAS DX WITH DOUBLE EAR INFECTION HOWEVER SHE IS STILL FEELING DIZZY, AND HAS DIAHRREA, VOMITTING AND DIDN'T KNOW IF SHE SHOULD WAIT TO Monday FOR HER APPT WITHKHARRI? PLEASE ADVISE IVON: [phone] documented in this encounter Plan of Treatment Not on file documented as of this encounter Visit Diagnoses Not on filedocumented in this encounter Care Teams Clinical Trials Data Coordinator Relationship Specialty Start Date End Date Radha Chau DO [address] [place] [address] PCP - General Family Medicine 07/30/18 02/02/20 documented as of this encounter
--- OUTSIDE RECORDS SUMMARY | 2024-01-11 19:03 | XMS_ITS | Encounter Summary ---
Author Organization [facility] Address [address] [place] [id number] Care Team Providers Care Cutting Table Operator First Name Role Phone Radha Chau DO Primary Care Provider [phone] Encounter Details Date Type Department Care Team (Late st Contact Info) Description 09/19/2018 Telephone [facility] [address] [place] [address] Radha Chau DO [address] [place], [place] [id number] 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 Tobacco Use Types Packs/Day Years [...] Telephone Encounter - Odalis Newell MA - 09/19/2018 2:01 PM EDT Informed pt * Telephone Encounter - Radha Chau DO - 09/19/2018 1:48 PM EDT Phenergan sent to pharmacy. If symptoms worsen or don't improve, recommend that she be seen at ER. * Telephone Encounter - Pilar Nielsen MA - 09/19/2018 1:15 PM EDT ----- Message from Pilar Nielsen MA sent at 09/19/2018 1:04 PM EDT ----- Contact: neha/patient Patient called and states she had a surgery yesterday and has been nauseated and voming. She is requesting zofran or phenergan be sent to [facility]. States Prefers phenagarn. States she triedto contact her surgeon and they are out of the office. [phone] documented in this encounter Plan of Treatment Not on file documented as of this encounter Visit Diagnoses Not on filedocumented in this encounter Care Teams Cutting Table Operator First Relationship Specialty Start Date End Date Radha Chau DO [address] [place] [address] PCP - General Family Medicine 07/30/18 02/02/20 documented as of this encounter
--- OUTSIDE RECORDS SUMMARY | 2024-01-11 19:03 | XMS_ITS | Encounter Summary ---
Author Organization [facility] Address [address] [place] [id number] Care Team Providers Care Bilingual Receptionist Name Role Phone Radha Chau DO Primary Care Provider [phone] Reason for Visit * (Routine) - Closed Specialty Diagnoses / Procedures Referred By Contac t Referred To Contact Radiology Diagnoses Lumbar back pain Procedures XR Spine Lumbar 4+ View Radha Chau DO [address] [facility] [place] [address] Phone: tel: fax: Referral ID Status Reason Start Date Expiration Date Visits Re quested Visits Authorized [id number] Closed 03/08/2019 03/07/2020 1 1 Encounter Details Date Type Department Care Team (Latest Contact Info) Description 03/12/2019 1:40 PM EST - 03/12/2019 11:59 PM EST Hospital Encounter [facility] [address] [place] [address] Radha Chau DO [address] [place] [address] Discharge Disposition: Home or Self [...] this encounter Medications at Time of Discharge cyclobenzaprine (FLEXERIL) 10 MG tabletIndications :Lumbar back pain Take 0.5-1 tablets by mouth 3 (Three) Times a Day As Needed for Muscle Spasms. 60 tablet 03/08/2019 06/12/2019 DULoxetine (CYMBALTA) 30 MG capsuleIndication s:Anxiety and depression Take 1 capsule by mouth Daily. 30 capsule 1 08/30/2018 06/05/2019 Elastic Bandages & Supports (WRIST SPLINT/COCK-UP/LE FT XL) miscIndications:C arpal tunnel syndrome, bilateral Use as needed for carpal tunnel 1 each 03/08/2019 06/05/2019 Elastic Bandages & Supports (WRIST SPLINT/COCK-UP/RI GHT XL) miscIndications:C arpal tunnel syndrome, bilateral Use as needed for carpal tunnel 1 each 03/08/2019 06/05/2019 predniSONE (DELTASONE) 20 MG tabletIndications :Lumbar back pain,Carpal tunnel syndrome, bilateral Take 3 tabs po qd x 2 days, 2 tabs po qd x 3 days, 1 tab po qd x 3 days, 1/2 tab po qd x 2 days 16 tablet 03/08/2019 06/05/2019 valACYclovir (VALTREX) 1000 MG tabletIndications :HSV (herpes simplex virus) infection Take 1 tablet by mouth Daily. 90 tablet 1 03/08/2019 03/23/2020 documented as of this encounter Plan of Treatment Not on file documented as of this encounter Procedures Procedure Name Priority Date/Time Associated Diagnosis Comments XR SPINE LUMBAR COMPLETE 4+VW Routine 03/12/2019 2:06 PM EST Lumbar back pain documented in this encounter Results * XR [...] Dr. Nona Mireles MD. Radha Chau DO [facility] [place] DI[facility]ST[facility] ORDE RABLES Final Result documented in this encounter Visit Diagnoses Not on filedocumented in this encounter Care Teams Bilingual Receptionist Relationship Specialty Start Date End Date Radha Chau DO [address] [place] [id number] PCP - General Family Medicine 07/30/18 02/02/20 documented as of this encounter
--- OUTSIDE RECORDS SUMMARY | 2024-01-11 19:03 | XMS_ITS | Encounter Summary ---
Author Organization [facility] Address [address] [place] [address] Care Team Providers Care Local Combination Truck Driver Name Role Phone Radha Chau DO Primary Care Provider [phone] Reason for Visit * Diagnostic Imaging (Routine) - Closed Specialty Diagnoses / Procedures Referred By Contgloria t Referred To Contact Radiology Diagnoses Odynophagia Esophageal dysphagia Procedures FL esophagram complete Radha Chau DO [address] [place] [address] Phone: tel: fax: [address] [address] Phone: tel: Referral ID Status Reason Start Date Expiration Date Visits Re quested Visits Authorized [id number] Closed 06/05/2019 06/04/2020 1 1 Encounter Details Date Type Department Care Team (Latest Contact Info) Description 06/07/2019 9:15 AM EDT - 06/07/2019 11:59 PM EDT Hospital Encounter [address] [address] Radha Chau DO [address] [place] [address] Discharge Disposition: Home or Self [...] for Muscle Spasms. 60 tablet 03/08/2019 06/12/2019 escitalopram (LEXAPRO) 20 MG tablet Take 20 mg by mouth Daily. 05/29/2019 12/07/2020 famotidine (PEPCID) 20 MG tablet Take 20 mg by mouth 2 (Two) Times a Day. 06/21/2019 pantoprazole (Protonix) 40 MG EC tabletIndications :Odynophagia,Esop hageal dysphagia,Gastroe sophageal reflux disease, esophagitis presence not specified Take 1 tablet by mouth Daily. 30 tablet 1 06/05/2019 06/21/2019 valACYclovir (VALTREX) 1000 MG tabletIndications :HSV (herpes simplex virus) infection Take 1 tablet by mouth Daily. 90 tablet 1 03/08/2019 03/23/2020 documented as of this encounter Plan of Treatment Not on file documented as of this encounter Procedures Procedure Name Priority Date/Time Associated Diagnosis Comments FL ESOPHAGRAM SINGLE CONTRAST Routine 06/07/2019 9:41 AM EDT Odynophagia Esophageal dysphagia documented in this encounter Visit Diagnoses Not on filedocumented in this encounter Administered Medications Inactive Administered Medications - up to 3 most recent administrations Medication Order MAR Action Action Date Dose Rate Site barium sulfate (E-Z-PAQUE) 96 % oral suspension reconstituted suspension 183 mL 183 mL, Oral, Once in Imaging, On Mon06/07/19 at 0946, For 1 dose, {BKC} Mix with water according to package insert. Shake well before administration. Given 06/07/2019 9:44 AM EDT 183 mL documented in this encounter Care Teams Local Combination Truck Driver Relationship Specialty Start Date End Date Radha Chau DO [address] [address] PCP - General Family Medicine 07/30/18 02/02/20 documented as of this encounter
--- OUTSIDE RECORDS SUMMARY | 2024-01-11 19:03 | XMS_ITS | Encounter Summary ---
Author Organization [facility] Address [address] [place] [address] Care Team Providers Care Patient Services Assistant Name Role Phone Radha Chau DO Primary Care Provider [phone] Reason for Visit * Reason Comments Abdominal Pain Vomiting 3 to 4 times a day Nausea constant Diarrhea constant * Consultation (Routine) - Closed Specialty Diagnoses / Procedures Referred By Contac t Referred To Contact Gastroenterology Diagnoses Right lower quadrant pain Radha Chau DO [address] [facility] [place] [address] Phone: tel: fax: [facility] [address] [facility] [address] [place] [address] Phone: tel: fax: Referral ID Status Reason Start Date Expiration Date V isits Requested Visits Authorized [id number] Closed Specialty Services Required 07/30/2018 07/30/2019 1 1 Encounter Details Date Type Department Care Team (Late st Contact Info) Description 08/01/2018 1:00 PM EDT Office Visit [facility] [address] [facility] [address] [place] [address] Jacky Damon, [employer] [address] [place] [address] Right lower quadrant abdominal pain (Primary Dx); Non-intractable vomiting with nausea, unspecified vomiting type; Diarrhea, unspecified type; Class 3 severe obesity due to excess calories with body mass index (BMI) of 45.0 to 49.9 in adult, unspecified whether serious comorbidity present 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 Tobacco Use Types Packs/Day Years [...] Sign Reading Time Taken Comments Blood Pressure 152/94 08/01/2018 12:33 PM EDT Pulse 96 08/01/2018 12:33 PM EDT Temperature - - Respiratory Rate - - Oxygen Saturation - - Inhaled Oxygen Concentration - - Weight 134 kg (294 lb 14.4 oz) 08/01/2018 12:33 PM EDT Height 167.6 cm (5' 5.98 ) 08/01/2018 12:33 PM E DT Body Mass Index 47.62 08/01/2018 12:33 PM EDT documented in this encounter Progress Notes * Jacky Damon, [employer] - 08/01/2018 1:00 PM EDT GASTROENTEROLOGY OFFICE NOTE Ivon Erwin [id number] 1990 CARE TEAM Patient Care Team: Radha Chau DO as PCP - General (Family Medicine) Referring Provider: Radha Peguero DO Chief Complaint Patient presents with ??? Abdominal Pain ??? Vomiting 3 to 4 times a day ??? Nausea constant ??? Diarrhea constant HISTORY OF PRESENT ILLNESS: Ms. Dowd is a 27-year-old female who presents today with a few complaints. She reports that for the past 3 to 4 months she has had a constant pain in her right lower quadrant of the abdomen that extends to her groin area. It is always there as a nagging type of ache but the intensity worsens to a throbbing pain with movement such as bending and twisting. 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 Previous testing has included a gynecologic work-up with laparoscopic exam that was apparently unremarkable. She has further complaints of frequent nausea and vomiting for the past month. She reports that sheis nauseous most all the time and vomits multiple times daily up to 5 times a day. This is not associated with meals and there is no associated pain. She denies early satiety, dysphagia, odynophagia,or having heartburn. She has a chronic history of diarrhea, since the age of 10. She describes having watery stools 2-3 times daily with associated urgency. She has had blood on a few occasions. She has no nocturnal awakenings for bowel movements. She has a family history of colon cancer in her father diagnosed at the age of 61. PAST MEDICAL HISTORY Past Medical History: Diagnosis Date ??? Anxiety ??? Depression ??? Endometriosis ??? Fibroid tumor ??? Ovarian cyst PAST SURGICAL HISTORY Past Surgical History: Procedure Laterality Date ??? SECTION ??? CHOLECYSTECTOMY ??? DILATATION AND CURETTAGE ??? HYSTERECTOMY Partial ??? TONSILLECTOMY ??? TUBAL ABDOMINAL LIGATION MEDICATIONS: Current Outpatient Medications: ??? amitriptyline (ELAVIL) 25 MG tablet, Take one tablet at bedtime for one week then increase to two tablets at bedtime thereafter, Disp: 60 tablet, Rfl: 1 ALLERGIES No Known Allergies [...] REVIEW OF SYSTEMS Review of Systems Constitutional: Negative. HENT: Negative. Eyes: Negative. Respiratory: Negative. Cardiovascular: Negative. Gastrointestinal: Positive for abdominal pain, diarrhea, nausea and vomiting. Endocrine: Negative. Genitourinary: Negative. Musculoskeletal: Negative. Skin: Negative. Psychiatric/Behavioral: Negative. PHYSICAL EXAM BP 152/94 Pulse 96 Ht 167.6 cm (65.98 ) Wt 134 kg (294 lb 14.4 oz) BMI 47.62 kg/m?? Physical Exam Constitutional: She is oriented to person, place, and time. She appears well- developed and well-nourished. HENT: Head: Normocephalic. Mouth/Throat: Oropharynx is clear and moist. Eyes: EOM are normal. Pupils are equal, round, and reactive to light. Neck: Normal range of motion. Neck supple. Cardiovascular: Normal rate and regular rhythm. Pulmonary/Chest: Effort normal and breath sounds normal. She has no wheezes. She has no rales. Abdominal: Soft. Bowel sounds are normal. She exhibits no mass. There is no tenderness. There is norebound and no guarding. No hernia. Trigger points identified in RLQ and umbilical area that clearly reproduce pain Musculoskeletal: Normal range of motion. Neurological: She is alert and oriented to person, place, and time. No cranial nerve deficit. Skin: Skin is warm and dry. Psychiatric: She has a normal mood and affect. Her behavior is normal. Judgment normal. Nursing note and vitals reviewed. Results Review: [facility]ail[facility] records reviewed and discussed with patient. ASSESSMENT / PLAN 1. Myofascial pain - The right lower quadrant pain that she is experiencing is clearly reproduced with pressure on trigger points. This pain is a constant pain and exacerbated by movement which is not indicative of gastrointestinal pain but more so of myofascial pain. - Begin amitriptyline 25 mg at bedtime for 1 week then increase to 50 mg at bedtime for 2 months thereafter 2. Nausea with vomiting - EGD to rule out peptic ulcer disease, H. pylori, gastritis, esophagitis, etc. 3. Chronic diarrhea - Family history colon cancer - Colonoscopy 4. Obesity -LORENA 47.6 -Complicates all aspects of care - Weight loss with diet and exercise encouraged Return for Follow up after procedures. I discussed the patients findings and my recommendations with patient Jacky Hagen. TERESA Damon documented in this encounter Plan of Treatment Not on file documented as of this encounter Visit Diagnoses Diagnosis Right lower quadrant abdominal pain- Primary Non-intractable vomiting with nausea, unspecified vomiting type Diarrhea, unspecified type Class 3 severe obesity due to excess calories with body mass index (BMI) of 45.0 to 49.9 in adult, unspecified whether serious comorbidity present documented in this encounter Care Teams Patient Services Assistant Relationship Specialty Start Date End Date Radha Chau DO [address] [place] [address] PCP - General Family Medicine 07/30/18 02/02/20 documented as of this encounter
--- OUTSIDE RECORDS SUMMARY | 2024-01-11 19:03 | XMS_ITS | Encounter Summary ---
Author Organization [facility] Address [address] [place] [address] Care Team Providers Care Brine Purifier Name Role Phone Radha Chau DO Primary Care Provider [phone] Reason for Visit * Reason Comments Headache frontal x weeks Urinary Frequency patient would like t o be STD tested, with a new boyfriend Encounter Details Date Type Department Care Team (Late st Contact Info) Description 08/30/2018 2:45 PM EDT Office Visit [facility] [address] [place] [address] Radha Chau DO [address] [place] [address] Urinary frequency (Primary Dx); Tension headache; Anxiety and depression; Vaginal discharge; Screen for sexually transmitted diseases 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 Tobacco Use Types Packs/Day Years [...] Sign Reading Time Taken Comments Blood Pressure 126/88 08/30/2018 2:57 PM EDT Pulse 86 08/30/2018 2:57 PM EDT Temperature 36.6 ??C (97.9 ??F) 08/30/2018 2:57 PM ED T Respiratory Rate 16 08/30/2018 2:57 PM EDT Oxygen Saturation - - Inhaled Oxygen Concentration - - Weight 132 kg (290 lb) 08/30/2018 2:57 PM EDT Height - - Body Mass Index 46.83 08/01/2018 12:33 PM EDT documented in this encounter Patient Instructions * Patient Instructions* Radha Chau DO - 08/30/2018 2:45 PM EDT Images from the original note were not included. Go to the nearest ER or return to clinic if symptoms worsen, fever/chill develop Major Depressive Disorder, Adult Major depressive disorder (MDD) is a mental health condition. MDD often makes you feel sad, hopeless, or helpless. MDD can also cause symptoms in your body. MDD can affect your: ?? Work. ?? School. ?? Relationships. ?? Other normal activities. MDD can range from mild to very bad. It may occur once (single episode MDD). It can also occur manytimes (recurrent MDD). The main symptoms of MDD often include: ?? Feeling sad, depressed, or irritable most of the time. ?? Loss of interest. MDD symptoms also include: ?? Sleeping too much or too little. ?? Eating too much or too little. ?? A change in your weight. ?? Feeling tired (fatigue) or having low energy. ?? Feeling worthless. ?? Feeling guilty. ?? Trouble making decisions. ?? Trouble thinking clearly. ?? Thoughts of suicide or harming others. ?? Feeling weak. ?? Feeling agitated. ?? Keeping yourself from being around other people (isolation). Follow these instructions at home: Activity ?? Do these things as told by your doctor: ? Go back to your normal activities. ? Exercise regularly. ? Spend time outdoors. Alcohol ?? Talk with your doctor about how alcohol can affect your antidepressant medicines. ?? Do not drink alcohol. Or, limit how much alcohol you drink. ? This means no more than 1 drink a day for non women and 2 drinks a day for men. One drinkequals one of these: ?? 12 oz of beer. ?? 5 oz of wine. ?? 1?? oz of hard liquor. General instructions ?? Take tgbi-uir-xhgojfa and prescription medicines only as told by your doctor. ?? Eat a healthy diet. ?? Get plenty of sleep. ?? Find activities that you enjoy. Make time to do them. ?? Think about joining a support group. Your doctor may be able to suggest a group for you. ?? Keep all follow-up visits as told by your doctor. This is important. Where to find more information: ?? National Friant on Mental Illness: ? www.keshav.org ?? U.S[place] National Ubly of Mental Health: ? www.[facility].nih.gov ?? National Suicide Prevention Lifeline: ? . This is free, 24-hour help. Contact a doctor if: ?? Your symptoms get worse. ?? You have new symptoms. Get help right away if: ?? You self-harm. ?? You see, hear, taste, smell, or feel things that are not present (hallucinate). If you ever feel like you may hurt yourself or others, or have thoughts about taking your own life,get help right away. You can go to your nearest emergency department or call: ?? Your local emergency services (911 in the [place] ?? A suicide crisis helpline, such as the National Suicide Prevention Lifeline: ? . This is open 24 hours a day. This information is not intended to replace advice given to you by your health care provider. Make sure you discuss any questions you have with your health care provider. Document Released: 01/18/2016 Document Revised: 10/23/2016 Document Reviewed: 10/23/2016 [employer] Interactive Patient Education ?? 2019 [employer] documented in this encounter Progress Notes * Radha Chau DO - 08/30/2018 2:45 PM EDT Lola Erwin is a 27 y.o. female. Chief Complaint Patient presents with ??? Headache frontal x weeks ??? Urinary Frequency patient would like to be STD tested, with a new boyfriend Depression Visit Type: follow-up Patient presents with the following symptoms: decreased concentration, depressed mood and excessiveworry. Patient is not experiencing: palpitations, shortness of breath, suicidal ideas and suicidal planning. Frequency of symptoms: constantly Severity: causing significant distress Sleep quality: poor Nighttime awakenings: several Urinary Tract Infection This is a new problem. The current episode started in the past 7 days. The problem occurs every urination. The quality of the pain is described as burning. There has been no fever. Associated symptoms include frequency and urgency. Pertinent negatives include no chills, flank pain, nausea or vomiting. She has tried nothing for the symptoms. The treatment provided no relief. She has depression, bipolar, anxiety, and borderline personality disorder. She has been admitted to [facility] 3 times within the last year after intentional overdose of her prescribed medications. Was following with psychiatrist, Dr. Guevara, however was dismissed due to too many no shows. However, today she says that she stopped seeing him because he told her she needed inpatient psychiatric carefor her ongoing conditions, not appropriate for outpatient care. She states that she is unable to miss work for the amount of time it would take to be inpatient, therefore she refuses to go be admitted to any psychiatric hospital. Currently not suicidal. Unsure what medications improved her symptoms in the past, has been treatedwith multiple different medications. Failed Wellbutrin, Zoloft, Latuda, Effexor (didn't improve depression), Abilify, buspirone, prozac,lamictal, trileptal. Having difficulty at work, had a breakdown recently and was sent home. Was told to not return untilshe sees a doctor. Requesting some time off from work while she starts medication. Her psychiatrist isn't available until September 2018, Nova Subramanian in [place]. She has also been having a headache x weeks. Located in the frontal region, tension related. Her father is currently dealing with cancer. She is caring for him, up all night. Currently treating with amitriptyline, which was started by gastroenterology for myofascial pain. She is requesting to be tested for STDs. She does have a new boyfriend, states that he started having penile discharge within the last 2 days. She states that she does have thick, white vaginal discharge. Thinks that she has an ongoing yeast infection. The following portions of the patient's history were reviewed and updated as appropriate: allergies, current medications, past family history, past medical history, past social history, past surgicalhistory and problem list. Review of Systems Constitutional: Negative for chills and fever. Respiratory: Negative for cough and shortness of breath. Cardiovascular: Negative for chest pain and palpitations. Gastrointestinal: Negative for nausea and vomiting. Genitourinary: Positive for frequency, urgency and vaginal discharge (thick, white). Negative for flank pain. Neurological: Positive for headache. Psychiatric/Behavioral: Positive for decreased concentration and depressed mood. Negative for agitation, self-injury and suicidal ideas. Objective Physical Exam Constitutional: She is oriented to person, place, and time. She appears well- developed and well-nourished. HENT: Head: Normocephalic and atraumatic. Right Ear: External ear normal. Left Ear: External ear normal. Nose: Nose normal. Eyes: Conjunctivae are normal. Neck: Neck supple. Cardiovascular: Normal rate, regular rhythm and normal heart sounds. Pulmonary/Chest: Effort normal and breath sounds normal. Abdominal: There is tenderness in the suprapubic area. There is no CVA tenderness. obese Musculoskeletal: She exhibits no edema. Neurological: She is alert and oriented to person, place, and time. Skin: Skin is warm and dry. Psychiatric: She has a normal mood and affect. Her behavior is normal. Judgment and thought contentnormal. Nursing note and vitals reviewed. Assessment/Plan Ivon was seen today for headache and urinary frequency. Diagnoses and all orders for this visit: Urinary frequency - POCT urinalysis dipstick, automated - Urine Culture - Urine, Urine, Clean Catch Tension headache Anxiety and depression - DULoxetine (CYMBALTA) 30 MG capsule; Take 1 capsule by mouth Daily. Vaginal discharge - fluconazole (DIFLUCAN) 150 MG tablet; Take 1 tablet by mouth Every 72 (Seventy-Two) Hours. Screen for sexually transmitted diseases - Chlamydia trachomatis, Neisseria gonorrhoeae, Trichomonas vaginalis, PCR - Swab, Urine, Clean Catch - HIV-1 / O / 2 Ag / Antibody 4th Generation - HSV 1 & 2 - Specific Antibody, IgG - RPR - Hepatitis Panel, Acute UA not significant, will culture urine to determine if acute cystitis is present. STD testing completed today. Fluconazole to improve vaginal discharge, based on description likely vaginal yeast infection. If labs are normal and Diflucan does not resolve symptoms, she has been advised to return to complete additional testing including a vaginal swab. Roki-lbq-[id number] acetaminophen or NSAID to treat tension headache as directed. Start on duloxetine to improve anxiety and depression. She has been advised to keep appointment with psychiatry as she does need psychiatric care. If symptoms worsen, she becomes homicidal/suicidal, she has been advised to go to nearest ER for immediate treatment. documented in this encounter Plan of Treatment Not on file documented as of this encounter Procedures Procedure Name Priority Date/Time Associated Diagnosis Comments URINE CULTURE Routine 08/30/2018 3:40 PM EDT Urinary frequency CONV HSV-2 IGG SUPPLEMENTAL TEST Routine 08/30/2018 3:31 PM EDT HIV-1/O/2 ANTIGEN/ANTIBODY Routine 08/30/2018 3:31 PM EDT Screen for sexually transmitted diseases CHLAMYDIA TRACHOMATIS, NEISSERIA GONORRHOEAE, TRICHOMONAS VAGINALIS, PCR Routine 08/30/2018 3:31 PM EDT Screen for sexually transmitted diseases HSV 1 AND 2-SPECIFIC AB, IGG Routine 08/30/2018 3:31 PM EDT Screen for sexually transmitted diseases HEPATITIS PANEL, ACUTE Routine 08/30/2018 3:31 PM EDT Screen for sexually transmitted diseases RPR Routine 08/30/2018 3:31 PM EDT Screen for sexually transmitted diseases POCT URINALYSIS DIPSTICK, AUTOMATED Routine 08/30/2018 3:20 PM EDT Urinary frequency documented in this encounter Results * Urine Culture - Urine, Urine, Clean Catch (08/30/2018 3:40 PM EDT) Urine Culture Final report [facility] Result 1 Comment [facility] Comment: Mixed urogenital devin Less than 10,000 colonies/mL Urine Urine specimen collection, clean catch / Unknown 08/30/2018 3:40 PM EDT 08/30/2018 Comment:UC Narrative [facility] (AMBULATORY) - 09/01/2018 3:06 AM EDT Performed at: ??01 - [facility] [address] [place], [place] ??[id number] Guest Relations Receptionist: Navjot Sanches PhD, Phone: ??[phone] us Radha Chau DO MICROBIOLOGY - GENERAL ORDE [facility] Final Result [facility] [address] [place] [address], [facility] [address] [place] [address], * (ABNORMAL) HSV-2 IgG Supplemental Test (08/30/2018 3:31 PM EDT) 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 Positive/Equivocal ?? Negative ?Unable to confirm the ? presence of IgG ? antibodies to HSV-2. ? Recommend retesting ? in 2-4 weeks. 08/30/2018 3:31 PM EDT 08/30/2018 Narrative [facility] - 08/31/2018 4:08 PM EDT Performed at: ??01 - [facility] ??[id number] Guest Relations Receptionist: Navjot Sanches PhD, Phone: ??[phone] us Radha Chau DO LAB BLOOD ORDERABLES Final Result Performing Organization Address City/State/[facility] Co de Phone Number [facility] [address] [place] [address], [facility] [address] [place] [address], * Hepatitis Panel, Acute (08/30/2018 3:31 PM [...] with a HCV Nucleic Acid Amplification test ([id number]). Blood 08/30/2018 3:31 PM EDT 08/30/2018 Narrative [facility] ([facility]) - 08/31/2018 4:08 PM EDT Performed at: ??01 - [address] ??[id number] Guest Relations Receptionist: Navjot Sanches PhD, Phone: ??[phone] Radha Chau DO LAB BLOOD ORDERABLES Final Result Performing Organization Address [facility] de Phone Number [facility] [address] [place] [address], [place] [phone] [facility] [address] [place] [address], [place] [phone] * RPR (08/30/2018 3:31 PM EDT) RPR Non Reactive Non Reactive [facility] Blood 08/30/2018 3:31 PM EDT 08/30/2018 [facility] ([facility]) - 08/31/2018 4:08 PM EDT Performed at: ??01 - [facility] ??[id number] Guest Relations Receptionist: Navjot Sanches PhD, Phone: ??[phone] Radha Chau DO LAB BLOOD ORDERABLES Final Result Performing Organization Address [facility] de Phone Number [facility] [address] [place] [address], [place] [phone] [facility] [address] [place] [address], [place] [phone] * (ABNORMAL) HSV 1 & 2 - Specific Antibody, IgG (08/30/2018 3:31 PM EDT) HSV 1 IgG, Type Specific 36.80(H) 0.00 - 0.90 index [facility] Comment: ? Negative ?<0.91 ? Equivocal 0.91 - 1.09 ? Positive ?>1.09 Note: Negative indicates no antibodies detected to HSV-1. Equivocal may suggest early infection. ??If clinically appropriate, retest at later date. Positive indicates antibodies detected to HSV-1. HSV 2 IgG 3.77(H) 0.00 - 0.90 index [facility] Comment: ? Negative ?<0.91 ? Equivocal 0.91 - 1.09 ? Positive ?>1.09 Note: Negative indicates no antibodies detected to HSV-2. Equivocal may suggest early infection. ??If clinically appropriate, retest at later date. Positive indicates antibodies detected to HSV-2. Blood 08/30/2018 3:31 PM EDT 08/30/2018 Narrative [facility] - 08/31/2018 4:08 PM EDT Performed at: ??01 - [facility], [place], [place] ??[id number] Guest Relations Receptionist: Navjot Sanches PhD, Phone: ??[phone] Radha Ann Isac DO LAB BLOOD ORDERABLES Final Result Performing Organization Address City/[facility]/ZIP Co de Phone Number [facility] ([facility]) [address] [place] [address], [facility] [address] [place] [address], [place] [phone] * HIV-1 / O / 2 Ag / Antibody 4th Generation (08/30/2018 3:31 PM EDT) [facility] HIV Screen 4th Gen w/RFX (Reference) Non Reactive Non Reactive [facility] Blood 08/30/2018 3:31 PM EDT 08/30/2018 Narrative [facility] ([facility]) - 08/31/2018 4:08 PM EDT Performed at: ??01 - [facility] ??[id number] Guest Relations Receptionist: Navjot Sanches PhD, Phone: ??[phone] Radha Oliva Isac DO LAB BLOOD ORDERABLES Final Result Performing Organization Address City/[facility]/ZIP Co de Phone Number [facility] ([facility]) [address] [place] [address], [facility] [address] [place] [address], [place] [phone] * (ABNORMAL) Chlamydia trachomatis, Neisseria gonorrhoeae, Trichomonas vaginalis, PCR - Swab, Urine, Clean Catch (08/30/2018 3:31 PM EDT) [facility] Chlamydia trachomatis, SALOMÓN Negative Negative [facility] Gonococcus by SALOMÓN Negative Negative [facility] Trichomonas vaginosis Positive(A) Negative [facility] Swab Urine specimen collection, clean catch / Unknown 08/30/2018 3:31 PM EDT 08/30/2018 Comment: Narrative [facility] ([facility]) - 08/31/2018 4:08 PM EDT Performed at: ??02 - [facility] [place] ??[id number] Guest Relations Receptionist: Sumaya Hoffman MD, Phone: ??[phone] Radha Chau DO MICROBIOLOGY - GENERAL ORDE RABLES Final Result [facility] [address] [place] [address], [place] [phone] [facility] [address] [place] [address], [place] [phone] * (ABNORMAL) POCT urinalysis dipstick, automated (08/30/2018 3:20 PM EDT) Color Yellow Yellow, Straw, Dark Yellow, Yojana [facility] Clarity, UA Cloudy(A) Clear [facility] Specific Brusly 1.030 1.005 - 1.030 [facility] pH, Urine 5.0 5.0 - 8.0 [facility] Leukocytes Negative Negative [facility] Nitrite, UA Negative Negative [facility] Protein, POC Trace(A) Negative mg/dL [facility] Glucose, UA Negative Negative, 1000 mg/dL (3+) mg/dL [facility] Ketones, UA Negative Negative [facility] Urobilinogen, UA Normal Normal [facility] Bilirubin Negative Negative [facility] Blood, UA Negative Negative [facility] Urine 08/30/2018 3:20 PM EDT Radha Chau DO POINT OF CARE TEST ORDERABL ES Final Result [facility]
[address] [place] [address], [place] [phone] documented in this encounter Visit Diagnoses Diagnosis Urinary frequency- Primary Tension headache Anxiety and depression Vaginal discharge Leukorrhea, not specified as infective Screen for sexually transmitted diseases Screening examination for venereal disease documented in this encounter Care Teams Brine Purifier Relationship Specialty Start Date End Date [place] [address] PCP - General Family Medicine 07/30/18 02/02/20 documented as of this encounter
--- OUTSIDE RECORDS SUMMARY | 2024-01-11 19:03 | XMS_ITS | Encounter Summary ---
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 Name Role Phone Radha Chau Primary Care Provider [phone] Reason for Visit * Reason Comments Abdominal Pain Encounter Details Date Type Department Care Team (Late st Contact Info) Description 06/10/2019 1:28 PM EDT - 06/10/2019 6:14 PM EDT Emergency [facility] [address] [place] [address] Cristina Anderson MD [address] [facility] [place] [address] Epigastric pain (Primary Dx); Non-intractable vomiting with nausea, unspecified vomiting type Discharge Disposition: Home or [...] Sign Reading Time Taken Comments Blood Pressure 141/96 06/10/2019 6:01 PM EDT Pulse 94 06/10/2019 6:01 PM EDT Temperature 36.7 ??C (98 ??F) 06/10/2019 1:48 PM EDT Respiratory Rate 12 06/10/2019 6:01 PM EDT Oxygen Saturation 95% 06/10/2019 6:01 PM EDT Inhaled Oxygen Concentration - - Weight 142 kg (314 lb) 06/10/2019 1:48 PM EDT Height 167.6 cm (5' 6 ) 06/10/2019 1:48 PM EDT Body Mass Index 50.68 06/10/2019 1:48 PM EDT documented in this encounter Discharge Instructions * Discharge Instructions* Joaquina Mejia PA-C - 06/10/2019 5:21 PM EDT You were seen for epigastric pain. Return here for increased pain, fever, vomiting despite meds. See your PCP or return here for recheck tomorrow. You had some enlarged lymph nodes and appendicolith.Schedule your EGD. * Attachments The following attachments cannot be sent through Care Everywhere. * Abdominal Pain Adult (Serbian) documented in this encounter Medications at Time of Discharge cyclobenzaprine (FLEXERIL) 10 MG tabletIndications:Tsering mbar back pain Take 0.5-1 tablets by mouth 3 (Three) Times a Day As Needed for Muscle Spasms. 60 tablet 03/08/2019 0 escitalopram (LEXAPRO) 20 MG tablet Take 20 mg by mouth Daily. 05/29/2019 1 famotidine (PEPCID) 20 MG tablet Take 20 mg by mouth 2 (Two) Times a Day. 0 ondansetron ODT (ZOFRAN-ODT) [address] 1 tablet on the tongue Every 8 (Eight) Hours As Needed for Nausea or Vomiting. 14 tablet 06/10/2019 0 pantoprazole (Protonix) 40 MG EC tabletIndications:Od ynophagia,Esophageal dysphagia,Gastroesop hageal reflux disease, esophagitis presence not specified Take 1 tablet by mouth Daily. 30 tablet 1 06/05/2019 0 sucralfate (CARAFATE) 1 g tablet Take 1 tablet by mouth 4 (Four) Times a Day for 5 days. 20 tablet 06/10/2019 0 valACYclovir (VALTREX) 1000 MG tabletIndications:HS V (herpes simplex virus) infection Take 1 tablet by mouth Daily. 90 tablet 1 03/08/2019 1 documented as of this encounter ED Notes * Joaquina Mejia PA-C - 06/10/2019 3:14 PM EDT Subjective Patient complains of several weeks of epigastric abdominal pain. She reports nausea and vomiting with occasional spots of dark red blood in it. She denies any fever. She denies any cough. She denies any urinary symptoms. Denies any diarrhea. She had a barium swallow showing hiatal hernia. Waiting to schedule endoscopy. Abdominal Pain Pain location: Epigastric Pain quality: sharp Pain quality: not throbbing Pain radiates to: Back Pain severity: Moderate Onset quality: Gradual Duration: 3 weeks Timing: Intermittent Progression: Unchanged Chronicity: Recurrent Context comment: Hiatal hernia Relieved by: Nothing Worsened by: Nothing Ineffective treatments: protonix. Associated symptoms: nausea and vomiting Associated symptoms: no chills, no cough, no dysuria, no fever and no shortness of breath Review of Systems Constitutional: Negative for chills and fever. Respiratory: Negative for cough and shortness of breath. Gastrointestinal: Positive for abdominal pain, nausea and vomiting. Genitourinary: Negative for dysuria and frequency. All other systems reviewed and are negative. [...] appears well- developed and well-nourished. HENT: Head: Atraumatic. Eyes: EOM are normal. No scleral icterus. Cardiovascular: Normal rate, regular rhythm and normal heart sounds. Exam reveals no gallop and no friction rub. No murmur heard. Pulmonary/Chest: Effort normal and breath sounds normal. No stridor. No respiratory distress. She has no wheezes. She has no rales. Abdominal: Soft. Normal appearance and bowel sounds are normal. There is tenderness in the right lower quadrant and epigastric area. There is no rigidity, no rebound and no guarding. Neurological: She is alert and oriented to person, place, and time. Skin: Skin is warm and dry. Psychiatric: She has a normal mood and affect. Her behavior is normal. Procedures ED Course ED Course as of Jun 10 1727 Mon Jun 10, 2019 1425 WBC: 6.04 [WT] 1507 Protein, UA(!): Trace [WT] 1507 Specific Talent, UA(!): 1.033 [WT] 1510 EKG NSR rate 91, no ST elevation [WT] 1528 Bacteria, UA(!): 1+ [WT] 1528 Squamous Epithelial Cells, UA(!): 7-12 [WT] 1529 Cxr MPRESSION: No acute cardiopulmonary process. No free air underneath the hemidiaphragms on this portable erect evaluation. [WT] 1609 CTAP IMPRESSION: 1. Status post cholecystectomy with mild postcholecystectomy ectasia. 2. Appendix has appendicolith located within the proximal portion however no abnormal dilatation or inflammation surrounding with a few mildly enlarged right lower quadrant mesenteric lymph nodes of indeterminate significance may represent minimal reactive adenopathy without focal fluid collection associated or focal wall thickening of the adjacent GI tract without mechanical obstructive process. [WT] 1609 Patient has epigastric pain, while some RLQ tenderness CT does not reveal periappendiceal inflammation. No leukocytosis or fever. Advised return to ED for RLQ pain. [WT] 1636 1621 paged general surgery [WT] 1718 Dr. Flores advised d/c home. Not c/w appendicitis. [WT] 1728 Patient to return here or see PCP for recheck tomorrow. [WT] ED Course User Index [WT] Joaquina Mejia, AALIYAH MDM Number of Diagnoses or Management Options Epigastric pain: Non-intractable vomiting with nausea, unspecified vomiting type: Diagnosis management comments: Patient presents complaining of epigastric pain. She has had pain for several weeks and had a hiatal hernia shown on barium swallow. She is supposed to be scheduled chilango endoscopy. Plan to obtain CBC, CMP, lipase, EKG, troponin, urinalysis, CT abdomen pelvis. Final diagnoses: Epigastric pain Non-intractable vomiting with nausea, unspecified vomiting type Joaquina Mejia PA-C 06/10/19 1728 Cosigned by Cristina Anderson MD at 06/11/2019 6:02 PM EDT Associated attestation - Cristina Anderson MD - 06/11/2019 6:02 PM EDT For this patient encounter, I reviewed the INSPECTOR WREATH or PA documentation, treatment plan, and medical decision making. Cristina Anderson MD 06/11/2019 18:02 documented in this encounter Plan of Treatment Not on file documented as of this encounter Procedures Procedure Name Priority Date/Time Associated Diagnosis Comments CT ABDOMEN PELVIS W CONTRAST STAT 06/10/2019 3:18 PM EDT XR CHEST 1 VW STAT 06/10/2019 3:04 PM EDT ECG 12-LEAD STAT 06/10/2019 2:30 PM EDT URINALYSIS, MICROSCOPIC ONLY STAT 06/10/2019 2:20 PM EDT URINALYSIS W/ MICROSCOPIC IF INDICATED (NO CULTURE) STAT 06/10/2019 2:20 PM EDT CBC WITH AUTO DIFFERENTIAL STAT 06/10/2019 2:01 PM EDT TROPONIN STAT 06/10/2019 2:01 PM EDT CBC AND DIFFERENTIAL STAT 06/10/2019 2:01 PM EDT LIPASE STAT 06/10/2019 2:01 PM EDT COMPREHENSIVE METABOLIC PANEL STAT 06/10/2019 2:01 PM EDT documented in this encounter Results * CT Abdomen Pelvis With Contrast (06/10/2019 3:18 PM EDT) Anatomical Region Laterality Modality Abdomen, Pelvis N/A Computed Tomogra phy 06/10/2019 3:40 PM EDT Impressions 06/10/2019 5:09 PM EDT 1. Status post cholecystectomy with mild postcholecystectomy ectasia. 2. Appendix has appendicolith located within the proximal portion however no abnormal dilatation or inflammation surrounding with a few mildly enlarged right lower quadrant mesenteric lymph nodes of indeterminate significance may represent minimal reactive adenopathy without focal fluid collection associated or focal wall thickening of the adjacent GI tract without mechanical obstructive process. D: ??06/10/2019 E: ??06/10/2019 This report was finalized on 06/10/2019 5:[address] Bartolo Medina. Narrative 06/10/2019 5:09 PM EDT EXAMINATION: CT ABDOMEN PELVIS W CONTRAST- 06/10/2019 INDICATION: epigastric pain TECHNIQUE: CT abdomen and pelvis with intravenous contrast The radiation dose reduction device was turned on for each scan per the ALARA (As Low as Reasonably Achievable) protocol. COMPARISON: CT dated 08/03/2018 FINDINGS: Lung bases are grossly clear. Liver demonstrates no focal liver lesion homogeneous in appearance. Gallbladder surgically absent. No biliary dilatation. Pancreas and spleen unremarkable with splenule at the splenic hilum. Adrenals without distinct nodule. Kidneys without hydronephrosis or hydroureter demonstrating bilateral nonobstructing nephrolithiasis. No bulky retroperitoneal adenopathy. Delayed excretory phase imaging fairly symmetric. No bulky retroperitoneal adenopathy. Patent nonaneurysmal abdominal aorta. ??Portal veins and IVC patent. GI tract evaluation without focal thickening or disproportionate dilatation of bowel to suggest mechanical obstructive process. Appendix has appendicolith noted however no abnormal thickening or periappendiceal inflammatory findings. A few mildly enlarged right lower quadrant mesenteric lymph nodes identified. No free fluid or intra-abdominal free air. Pelvic viscera grossly unremarkable without bulky pelvic adenopathy. Degenerative changes of the spine without aggressive osseous lesion. ??No soft tissue body wall findings of concern. Procedure Note Medina, Bartolo C, DO - 06/10/2019 EXAMINATION: CT ABDOMEN PELVIS W CONTRAST- 06/10/2019 INDICATION: epigastric pain TECHNIQUE: CT abdomen and pelvis with intravenous contrast The radiation dose reduction device was turned on for each scan per the ALARA (As Low as Reasonably Achievable) protocol. COMPARISON: CT dated 08/03/2018 FINDINGS: Lung bases are grossly clear. Liver demonstrates no focal liver lesion homogeneous in appearance. Gallbladder surgically absent. No biliary dilatation. Pancreas and spleen unremarkable with splenule at the splenic hilum. Adrenals without distinct nodule. Kidneys without hydronephrosis or hydroureter demonstrating bilateral nonobstructing nephrolithiasis. No bulky retroperitoneal adenopathy. Delayed excretory phase imaging fairly symmetric. No bulky retroperitoneal adenopathy. Patent nonaneurysmal abdominal aorta. Portal veins and IVC patent. GI tract evaluation without focal thickening or disproportionate dilatation of bowel to suggest mechanical obstructive process. Appendix has appendicolith noted however no abnormal thickening or periappendiceal inflammatory findings. A few mildly enlarged right lower quadrant mesenteric lymph nodes identified. No free fluid or intra-abdominal free air. Pelvic viscera grossly unremarkable without bulky pelvic adenopathy. Degenerative changes of the spine without aggressive osseous lesion. No soft tissue body wall findings of concern. IMPRESSION: 1. Status post cholecystectomy with mild postcholecystectomy ectasia. 2. Appendix has appendicolith located within the proximal portion however no abnormal dilatation or inflammation surrounding with a few mildly enlarged right lower quadrant mesenteric lymph nodes of indeterminate significance may represent minimal reactive adenopathy without focal fluid collection associated or focal wall thickening of the adjacent GI tract without mechanical obstructive process. E: 06/10/2019 This report was finalized on 06/10/2019 5:[address] Bartolo Medina. Joaquina Mejia PA-C IMG CT ORDERABLES Final R esult * XR Chest 1 View (06/10/2019 3:04 PM EDT) Anatomical Region Laterality Modality Body N/A Radiographic [place] ging 06/10/2019 3:10 PM EDT Impressions 06/10/2019 5:09 PM EDT No acute cardiopulmonary process. No free air underneath the hemidiaphragms on this portable erect evaluation. D: ??06/10/2019 E: ??06/10/2019 This report was finalized on 06/10/2019 5:[address] Bartolo Medina. Narrative 06/10/2019 5:09 PM EDT EXAMINATION: XR CHEST 1 VW- 06/10/2019 INDICATION: Epigastric pain COMPARISON: NONE FINDINGS: Cardiac size borderline enlarged without overt edema. No focal opacification or consolidation. No pneumothorax or pleural effusion. ? Procedure Note Bartolo Medina DO - 06/10/2019 EXAMINATION: XR CHEST 1 VW- 06/10/2019 INDICATION: Epigastric pain COMPARISON: NONE FINDINGS: Cardiac size borderline enlarged without overt edema. No focal opacification or consolidation. No pneumothorax or pleural effusion. IMPRESSION: No acute cardiopulmonary process. No free air underneath the hemidiaphragms on this portable erect evaluation. E: 06/10/2019 This report was finalized on 06/10/2019 5:[address] Bartolo Medina. Joaquina Mejia PA-C [facility] DIAGNOSTIC IMAGING OR DERABLES Final Result * ECG 12 Lead (06/10/2019 2:30 PM EDT) 06/10/2019 2:30 PM EDT 06/15/2019 11:21 AM EDT Narrative ECG - 06/15/2019 11:21 AM EDT Test Reason : epig pain Blood Pressure : / mmHG Vent. Rate : 091 BPM ? Atrial Rate : 091 BPM ?? P-R Int : 150 ms ?QRS Dur : 088 ms ?QT Int : 370 ms ? P-R-T Axes : 037 041 -09 degrees ?? QTc Int : 455 ms Normal sinus rhythm No previous ECGs available Confirmed by MONICA ??CRISTINA UNDERWOOD ([id number]) on 06/15/2019 11:21:03 AM Referred By: ??MONICA ? Confirmed By:CRISTINA ANDERSON ?? Procedure Note Cristina Anderson MD - 06/15/2019 Test Reason : epig pain Blood Pressure : / mmHG Vent. Rate : 091 BPM Atrial Rate : 091 BPM P-R Int : 150 ms QRS Dur : 088 ms QT Int : 370 ms P-R-T Axes : 037 041 -09 degrees QTc Int : 455 ms Normal sinus rhythm No previous ECGs available Confirmed by CRISTINA ANDERSON MD ([id number]) on 06/15/2019 11:21:03 AM Referred By: MONICA Confirmed By:CRISTINA ANDERSON MD us Joaquina Mejia PA-Lukasz ECG ORDERABLES Final Res ult ECG * (ABNORMAL) Urinalysis, Microscopic Only - Urine, Clean Catch (06/10/2019 2:20 PM EDT) RBC, UA None Seen None Seen, 0-2 /HPF 06/10/2019 3:14 PM EDT [facility] WBC, UA None Seen None Seen, 0-2 /HPF 06/10/2019 3:14 PM EDT [facility] Bacteria, UA 1+(A) None Seen, Trace /HPF 06/10/2019 3:14 PM EDT [facility] Squamous Epithelial Cells, UA 7-12(A) None Seen, 0-2 /HPF 06/10/2019 3:14 PM EDT [facility] Hyaline Casts, UA 0-6 0 - 6 /LPF 06/10/2019 3:14 PM EDT [facility] Granular Casts, UA 0-2 None Seen /LPF 06/10/2019 3:14 PM EDT [facility] Mucus, UA Small/1+(A) None Seen, Trace /HPF 06/10/2019 3:14 PM EDT [facility] Methodology Manual Light Microscopy 06/10/2019 3:14 PM EDT [facility] Urine Urine specimen collection, clean catch / Unknown Collection / Unknown 06/10/2019 2:20 PM EDT 06/10/2019 2:39 PM EDT Joaquina Mejia PA-C URINE ORDERABLES Final Re sult [facility]
[address] [place] [address], * (ABNORMAL) Urinalysis With Microscopic If Indicated (No Culture) - Urine, Clean Catch (06/10/2019 2:20 PM EDT) Color, UA Yellow Yellow, Straw 06/10/2019 2:47 PM EDT [facility] Appearance, UA Cloudy(A) Clear 06/10/2019 2:47 PM EDT [facility] pH, UA <=5.0 5.0 - 8.0 06/10/2019 2:47 PM EDT [facility] Specific Talent, UA 1.033(H) 1.001 - 1.030 06/10/2019 2:47 PM EDT [facility] Glucose, UA Negative Negative 06/10/2019 2:47 PM EDT [facility] Ketones, UA Negative Negative 06/10/2019 2:47 PM EDT [facility] Bilirubin, UA Negative Negative 06/10/2019 2:47 PM EDT [facility] Blood, UA Negative Negative 06/10/2019 2:47 PM EDT [facility] Protein, UA Trace(A) Negative 06/10/2019 2:47 PM EDT [facility] Leuk Esterase, UA Negative Negative 06/10/2019 2:47 PM EDT [facility] Nitrite, UA Negative Negative 06/10/2019 2:47 PM EDT [facility] Urobilinogen, UA 0.2 E.U./dL 0.2 - 1.0 E.U./dL 06/10/2019 2:47 PM EDT [facility] Urine Urine specimen collection, clean catch / Unknown Collection / Unknown 06/10/2019 2:20 PM EDT 06/10/2019 2:39 PM EDT Joaquina Mejia PA-C URINE ORDERABLES Final Re sult [facility]
[address] [place] [address], * (ABNORMAL) CBC Auto Differential (06/10/2019 2:01 PM EDT) WBC 6.04 3.40 - 10.80 10*3/mm3 06/10/2019 2:16 PM EDT [facility] RBC 4.56 3.77 - 5.28 10*6/mm3 06/10/2019 2:16 PM EDT [facility] Hemoglobin 13.6 12.0 - 15.9 g/dL 06/10/2019 2:16 PM EDT [facility] Hematocrit 39.7 34.0 - 46.6 % 06/10/2019 2:16 PM EDT [facility] MCV 87.1 79.0 - 97.0 fL 06/10/2019 2:16 PM EDT [facility] MCH 29.8 26.6 - 33.0 pg 06/10/2019 2:16 PM EDT [facility] MCHC 34.3 31.5 - 35.7 g/dL 06/10/2019 2:16 PM EDT [facility] RDW 12.2(L) 12.3 - 15.4 % 06/10/2019 2:16 PM EDT [facility] RDW-SD 38.6 37.0 - 54.0 fl 06/10/2019 2:16 PM EDT [facility] MPV 10.0 6.0 - 12.0 fL 06/10/2019 2:16 PM EDT [facility] Platelets 274 140 - 450 10*3/mm3 06/10/2019 2:16 PM EDT [facility] Neutrophil % 58.0 42.7 - 76.0 % 06/10/2019 2:16 PM EDT [facility] Lymphocyte % 30.8 19.6 - 45.3 % 06/10/2019 2:16 PM EDT [facility] Monocyte % 5.8 5.0 - 12.0 % 06/10/2019 2:16 PM EDT [facility] Eosinophil % 4.5 0.3 - 6.2 % 06/10/2019 2:16 PM EDT [facility] Basophil % 0.7 0.0 - 1.5 % 06/10/2019 2:16 PM EDT [facility] Immature Grans % 0.2 0.0 - 0.5 % 06/10/2019 2:16 PM EDT [facility] Neutrophils, Absolute 3.51 1.70 - 7.00 10*3/mm3 06/10/2019 2:16 PM EDT [facility] Lymphocytes, Absolute 1.86 0.70 - 3.10 10*3/mm3 06/10/2019 2:16 PM EDT [facility] Monocytes, Absolute 0.35 0.10 - 0.90 10*3/mm3 06/10/2019 2:16 PM EDT [facility] Eosinophils, Absolute 0.27 0.00 - 0.40 10*3/mm3 06/10/2019 2:16 PM EDT [facility] Basophils, Absolute 0.04 0.00 - 0.20 10*3/mm3 06/10/2019 2:16 PM EDT [facility] Immature Grans, Absolute 0.01 0.00 - 0.05 10*3/mm3 06/10/2019 2:16 PM EDT [facility] nRBC 0.0 0.0 - 0.2 /100 WBC 06/10/2019 2:16 PM EDT [facility] Blood Venipuncture / Unknown 06/10/2019 2:01 PM EDT 06/10/2019 2:09 PM EDT Joaquina Mejia PA-C LAB BLOOD ORDERABLES Magdalena breaux Result [facility]
[address] [place] [address], * Troponin (06/10/2019 2:01 PM EDT) [facility] Troponin T <0.010 0.000 - 0.030 ng/mL 06/10/2019 3:11 PM EDT [facility] Blood Venipuncture / Unknown 06/10/2019 2:01 PM EDT 06/10/2019 2:09 PM EDT Narrative [facility] - 06/10/2019 3:11 PM EDT Troponin T Reference Range: <= 0.03 ng/mL- ?? Negative for AMI >0.03 ng/mL- ? Abnormal for myocardial necrosis. ??Clinicians would have to utilize clinical acumen, EKG, Troponin and serial changes to determine if it is an Acute Myocardial Infarction or myocardial injury due to an underlying chronic condition. Results may be falsely decreased if patient taking Biotin. us Joaquina Mejia PA-C LAB BLOOD ORDERABLES Magdalena l Result [facility]
[address] [place] [address], * Lipase (06/10/2019 2:01 PM EDT) [facility] Lipase 31 13 - 60 U/L 06/10/2019 3:15 PM EDT [facility] Blood Venipuncture / Unknown 06/10/2019 2:01 PM EDT 06/10/2019 2:09 PM EDT us Joaquina Mejia PA-C LAB BLOOD ORDERABLES Magdalena l Result [facility]
[address] [place] [address], [place] [phone] * (ABNORMAL) Comprehensive Metabolic Panel (06/10/2019 2:01 PM EDT) [facility] Glucose 179(H) 65 - 99 mg/dL 06/10/2019 3:31 PM [facility] BUN 7 6 - 20 mg/dL 06/10/2019 3:31 PM EDT [facility] Creatinine 0.68 0.57 - 1.00 mg/dL 06/10/2019 3:31 PM EDT [facility] Sodium 137 136 - 145 mmol/L 06/10/2019 3:31 PM EDT [facility] Potassium 4.2 3.5 - 5.2 mmol/L 06/10/2019 3:31 PM EDT [facility] Comment:Specimen hemolyzed. Results may be affected. Chloride 103 98 - 107 mmol/L 06/10/2019 3:31 PM EDT [facility] CO2 22.0 22.0 - 29.0 mmol/L 06/10/2019 3:31 PM EDT [facility] Calcium 9.2 8.6 - 10.5 mg/dL 06/10/2019 3:31 PM EDT [facility] Total Protein 7.7 6.0 - 8.5 g/dL 06/10/2019 3:31 PM EDT [facility] Albumin 4.40 3.50 - 5.20 g/dL 06/10/2019 3:31 PM EDT [facility] ALT (SGPT) 28 1 - 33 U/L 06/10/2019 3:31 PM T [facility] Comment:Specimen hemolyzed. Results may be affected. AST (SGOT) 29 1 - 32 U/L 06/10/2019 3:31 PM EDT [facility] Alkaline Phosphatase 72 39 - 117 U/L 06/10/2019 3:31 PM EDT [facility] Total Bilirubin 0.3 0.2 - 1.2 mg/dL 06/10/2019 3:31 PM T [facility] eGFR Non Amer 102 >60 mL/min/1.7 3 06/10/2019 3:31 PM EDT [facility] Globulin 3.3 gm/dL 06/10/2019 3:31 PM EDT [facility] A/G Ratio 1.3 g/dL 06/10/2019 3:31 PM EDT [facility] BUN/Creatinine Ratio 10.3 7.0 - 25.0 06/10/2019 3:31 PM EDT [facility] Anion Gap 12.0 5.0 - 15.0 mmol/L 06/10/2019 3:31 PM EDT [facility] Blood Venipuncture / Unknown 06/10/2019 2:01 PM EDT 06/10/2019 2:09 PM EDT Narrative [facility] - 06/10/2019 3:31 PM EDT Hemolyzed specimen. Testing performed per physician request. GFR Normal >60 Chronic Kidney Disease <60 Kidney Failure <15 us Joaquina Mejia PA-C LAB BLOOD ORDERABLES Magdalena breaux Result [facility]
[address] [place] [address], documented in this encounter Visit Diagnoses Diagnosis Epigastric pain- Primary Abdominal pain, epigastric Non-intractable vomiting with nausea, unspecified vomiting type documented in this encounter Administered Medications Inactive Administered Medications - up to 3 most recent administrations Medication Order MAR Action Action Date Dose Rate Site aluminum-magnesium hydroxide-simethicone (MAALOX MAX) 400-400-40 MG/5ML suspension 15 mL 15 mL, Oral, Once, On Mon06/10/19 at 1402, For 1 dose, Mix with viscous lidocaine in this panel Given 06/10/2019 2:21 PM EDT 15 mL iopamidol (ISOVUE-300) 61 % injection 100 mL 100 mL, Intravenous, Once in Imaging, On Mon06/10/19 at 1514, For 1 dose Given 06/10/2019 3:10 PM EDT 95 mL Lidocaine Viscous HCl (XYLOCAINE) 2 % mouth solution 15 mL 15 mL, Mouth/Throat, Once, On Mon06/10/19 at 1402, For 1 dose, Mix with alum / mag hydroxide / simeth (mylanta) in this panel If given for pain, use the following pain scale: Mild Pain = Pain Score of 1-3, CPOT 1-2 Moderate Pain = Pain Score of 4-6, CPOT 3-4 Severe Pain = Pain Score of 7-10, CPOT 5-8 Given 06/10/2019 2:21 PM EDT 15 mL Morphine sulfate (PF) injection 4 mg 4 mg, Intravenous, Once, On Mon06/10/19 at 1651, For 1 dose, {ALEX} Caution: Look alike/sound alike drug alert If given for pain, use the following pain scale: Mild Pain = Pain Score of 1-3, CPOT 1-2 Moderate Pain = Pain Score of 4-6, CPOT 3-4 Severe Pain = Pain Score of 7-10, CPOT 5-8 Given 06/10/2019 6:01 PM EDT 4 mg ondansetron (ZOFRAN) injection 4 mg 4 mg, Intravenous, Once, On Mon06/10/19 at 1402, For 1 dose Given 06/10/2019 2:19 PM EDT 4 mg ondansetron (ZOFRAN) injection 4 mg 4 mg, Intravenous, Once, On Mon06/10/19 at 1651, For 1 dose Given 06/10/2019 6:00 PM EDT 4 mg sodium chloride 0.9 % bolus 1,000 mL 1,000 mL, Intravenous, at 2,000 mL/hr, Administer over 0.5 Hours, Once, On Mon06/10/19 at 1402, For 1 dose New Bag 06/10/2019 2:18 PM EDT 1,000 mL 2000 mL/hr sucralfate (CARAFATE) tablet 1 g 1 g, Oral, Once, On Mon06/10/19 at 1402, For 1 dose, Take on an empty stomach. For nasogastric [...] Flush tube before and after administration Given 06/10/2019 2:20 PM EDT 1 g documented in this encounter Active and Recently Administered Medications Times are shown in EDT. Scheduled Medication Order 06/08/2019 06/09/2019 06/10/2019 aluminum-magnesium hydroxide-simethicone (MAALOX MAX) 400-400-40 MG/5ML suspension 15 mL (COMPLETED) 15 mL, Oral, Once, On Mon06/10/19 at 1402, For 1 dose, Mix with viscous lidocaine in this panel 1421 (Given - Provid er: Bernabe Jackson RN) iopamidol (ISOVUE-300) 61 % injection 100 mL (COMPLETED) 100 mL, Intravenous, Once in Imaging, On Mon06/10/19 at 1514, For 1 dose 1510 (Given - Provid er: Nat Mcghee) Lidocaine Viscous HCl (XYLOCAINE) 2 % mouth solution 15 mL (COMPLETED) 15 mL, Mouth/Throat, Once, On Mon06/10/19 at 1402, For 1 dose, Mix with alum / mag hydroxide / simeth (mylanta) in this panel If given for pain, use the following pain scale: Mild Pain = Pain Score of 1-3, CPOT 1-2 Moderate Pain = Pain Score of 4-6, CPOT 3-4 Severe Pain = Pain Score of 7-10, CPOT 5-8 1421 (Given - Provid er: Bernabe Jackson RN) Morphine sulfate (PF) injection 4 mg (COMPLETED) 4 mg, Intravenous, Once, On Mon06/10/19 at 1651, For 1 dose, {ALEX} Caution: Look alike/sound alike drug alert If given for pain, use the following pain scale: Mild Pain = Pain Score of 1-3, CPOT 1-2 Moderate Pain = Pain Score of 4-6, CPOT 3-4 Severe Pain = Pain Score of 7-10, CPOT 5-8 1801 (Given - Provid er: Bernabe Jackson RN) ondansetron (ZOFRAN) injection 4 mg (COMPLETED) 4 mg, Intravenous, Once, On Mon06/10/19 at 1402, For 1 dose 1419 (Given - Provid er: Bernabe Jackson RN) ondansetron (ZOFRAN) injection 4 mg (COMPLETED) 4 mg, Intravenous, Once, On Mon06/10/19 at 1651, For 1 dose 1800 (Given - Provid er: Bernabe Jackson RN) sodium chloride 0.9 % bolus 1,000 mL (COMPLETED) 1,000 mL, Intravenous, at 2,000 mL/hr, Administer over 0.5 Hours, Once, On Mon06/10/19 at 1402, For 1 dose 1418 (New Bag - Prov ider: Bernabe Jackson RN)1533 (Stopped - Provider: Bernabe Jackson RN) sucralfate (CARAFATE) tablet 1 g (COMPLETED) 1 g, Oral, Once, On Mon06/10/19 at 1402, For 1 dose, Take on an empty stomach. For nasogastric [...] tube Flush tube before and after administration 1420 (Given - Provid er: Bernabe Jackson RN) documented in this encounter Care Teams Clerical Office Worker Relationship Specialty Start Date End Date Radha Chau DO [address] [facility] [place] [address] PCP - General Family Medicine 07/30/18 02/02/20 documented as of this encounter
--- OUTSIDE RECORDS SUMMARY | 2024-01-11 19:03 | XMS_ITS | Encounter Summary ---
Author Organization [facility] Address [address] [place] [id number] Care Team Providers Care Cleaning Manager Name Role Phone Radha Chau DO Primary Care Provider [phone] Encounter Details Date Type Department Care Team (Late st Contact Info) Description 09/03/2018 Telephone [facility] FAMILY MEDICINE [address] [place] [address] Radha Chau DO [address] [place], [place] [id number] 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 Tobacco Use Types Packs/Day Years [...] encounter Miscellaneous Notes * Telephone Encounter - Pilar Nielsen MA - 09/04/2018 8:31 AM EDT Patient informed, verbalized good understanding * Telephone Encounter - Radha Chau DO - 09/03/2018 7:27 PM EDT Daily valtrex sent to pharmacy. 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 She did advise she has several out breaks of genital herpes per month and gets frequent cold sores. She wants to know if you prescribe a daily medicinefor her to take. documented in this encounter Plan of Treatment Not on file documented as of this encounter Visit Diagnoses Diagnosis HSV (herpes simplex virus) infection- Primary Herpes simplex without mention of complication documented in this encounter Care Teams Cleaning Manager Relationship Specialty Start Date End Date Radha Chau DO [address] [place] [address] PCP - General Family Medicine 07/30/18 02/02/20 documented as of this encounter
--- OUTSIDE RECORDS SUMMARY | 2024-01-11 19:04 | XMS_ITS | Encounter Summary ---
Author Organization [employer] Address [address] [place] [address] Care Team Providers Care Shipping Agent Name Role Phone Unavailable Primary Care Provider Unavailabl e Encounter Details Date Type Department Care Team (Late st Contact Info) Description 04/22/[address] [facility] Family Medicine [facility] [place] [address] ProviderPreston MD [address] [place] [id number] 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 Tobacco Use Types Packs/Day Years Used Date Smoking Tobacco: Never Assessed Comments Unknown Sex and Gender Information Value Date Recorded Sex Assigned at Not on file Legal Sex Female 6:58 PM CDT Gender Identity Not on file Sexual Orientation Not on file documented as of this encounter Miscellaneous Notes * Cerner Conversion Note - Historical ProviderMD - 04/22/2020 3:12 PM CHIEF ENVIRONMENTAL COMMITMENT OFFICER Spiritual Care Assessment Entered On: 04/23/2020 11:39 EST Performed On: 04/23/2020 11:18 EST by RELL YEE General Information Initial Visit : Yes Referred by : Patient Referral Reason Comment : Pre-surgery visit Ministry Provided to : Patient, Family/Significant other Hoahaoism Preference : Synagogue RELL YEE P - 04/23/2020 11:37 EST Spiritual Assessment Spiritual Assessment Comment/Summary Points : Pre-surgery visit and prayer with patient and mother. Spirital Assessment Comment/Summary Report : SPIRITUAL ASSESSMENT COMMENT/SUMMARY No qualifying data available. RELL YEE - 04/23/2020 11:37 EST Interventions Emotional Support : Empathic/Engaged listening, Family/Significant other supported, Feelings expressed Spiritual and Hoahaoism : Prayer shared, Spiritual/Hoahaoism support provided RELL YEE - 04/23/2020 11:37 EST Electronically signed by [place], [facility] Conversion Helper Steel Fabrication Cerner at 06/05/2022 6:32 PM CDT documented in this encounter Plan of Treatment Not on file documented as of this encounter Visit Diagnoses Not on filedocumented in this encounter
--- OUTSIDE RECORDS SUMMARY | 2024-01-11 19:04 | XMS_ITS | Encounter Summary ---
[facility] Address [address] [place] [id number] Care Team Providers Care Recruitment Director Name Role Phone Unavailable Primary Care Provider Unavailabl e Encounter Details Date Type Department Care Team (Late st Contact Info) Description 07/03/2014 10:10 AM EDT - 07/03/2014 11:59 PM EDT Hospital Encounter [facility] DEPART[facility] [address] [place] [address] Provider, [place] [address] 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 Tobacco Use Types Packs/Day Years [...]
--- OUTSIDE RECORDS SUMMARY | 2024-01-11 19:04 | XMS_ITS | Encounter Summary ---
Author Organization [employer] Address [address] [place] [address] Care Team Providers Care Swimming Coach Name Role Phone Unavailable Primary Care Provider Unavailabl e Encounter Details Date Type Department Care Team (Late st Contact Info) Description 04/23/2020 Historic Encounter [address] [address] ProviderElsa Historical 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 Tobacco Use Types Packs/Day Years [...] Procedure Name Priority Date/Time Associated Diagnosis Comments GLUCOSE-POC Routine 04/23/2020 9:42 AM EST documented in this encounter Results * (ABNORMAL) Glucose, Point of Care (04/23/2020 9:42 AM EST) Glucose POC2 123(H) 70 - 110 mg/dL 04/23/2020 2:42 PM EST [facility] Logistics Vice President [id number] 04/23/2020 2:42 PM EST [facility] Device SN [id number] 04/23/2020 2:42 PM EST [facility] Device Comment1 No action Require 04/23/2020 2:42 PM EST [facility] Blood 04/23/2020 9:42 AM EST 04/23/2020 2:45 PM EST [facility] Historical Provider POINT OF CARE TEST ANÍBAL SIMPSON Final Result [facility] [address] [place] [address], [facility] [phone] documented in this encounter Visit Diagnoses Not on filedocumented in this encounter
--- OUTSIDE RECORDS SUMMARY | 2024-01-11 19:04 | XMS_ITS | Encounter Summary ---
[facility] Organization [facility] Address [address] [place] [id number] Care Team Providers Care Lead Programmer Name Role Phone Unavailable Primary Care Provider Unavailabl e Encounter Details Date Type Department Care Team (Late st Contact Info) Description 01/23/2014 3:26 PM EST - 01/23/2014 11:59 PM EST Hospital Encounter [facility] DEPARTMENT [address] [place] [address] Provider, [place] [address] 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 Tobacco Use Types Packs/Day Years [...]
--- OUTSIDE RECORDS SUMMARY | 2024-01-11 19:04 | XMS_ITS | Encounter Summary ---
Author Organization [email or web address] Address [address] [place] [address] Care Team Providers Care Field Automobile Adjuster Name Role Phone Unavailable Primary Care Provider Unavailabl e Encounter Details Date Type Department Care Team (Late st Contact Info) Description 04/22/2020 Transcribed Document [facility] Family Medicine [facility] [place] [address] ProviderPreston MD [address] [place] [phone] 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 Tobacco Use Types Packs/Day Years Used Date Smoking Tobacco: Never Assessed Comments Unknown Sex and Gender Information Value Date Recorded Sex Assigned at Not on file Legal Sex Female 6:58 PM CDT Gender Identity Not on file Sexual Orientation Not on file documented as of this encounter Miscellaneous Notes * Cerner Conversion Note - Historical ProviderMD - 04/22/2020 3:08 PM PROJECT OFFICER PAT Adult Entered On: 04/22/2020 15:12 EST Performed On: 04/22/2020 15:08 EST by Tomy Olvera Rn Height and Weight, Clinical Dosing Height Source : Measured Height Entry Format : [place] Height, Feet : 5 ft(Converted to: 152 cm, 60 Inch) Height, Inches : 6 Inch(Converted to: 0 ft 6 Inch, 15.24 cm) Clinical Height : 167.64 cm Weight Source : Standing scale Weight Entry Format : [place] Clinical Dosing Weight : 136.18 kg Weight, Pounds : 299.6 lb Body Surface Area (BSA) : 2.38 m2 Body Mass Index : 48.5 kg/m2 (>HHI) [place] Body Weight : 59 kg VALERY Wynn RN - 04/23/2020 9:31 EST Health Histories Smoking Status : Never (less than 100 in lifetime; none in last 30 days) Smokeless Tobacco Status : Never Implant/Device Type, Structural Steel Engineer and Model : NA Tomy Olvera Rn - 04/22/2020 15:08 EST 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 (As Of: 04/22/2020 15:12:15 EST) Tobacco: Never (less than 100 in lifetime) Smoking Status. (Last Updated: 07/11/2019 15:33:33 EDT by Martha Singh RN) Alcohol: Alcohol Use Frequency Rarely. (Last Updated: 07/11/2019 15:33:44 EDT by Martha Singh RN) Substance Abuse: Drug Use Hx: No. (Last Updated: 07/11/2019 15:33:48 EDT by Martha Singh RN) Infectious Disease History Date of COVID-19 Test : 04/21/2020 EST VALERY Wynn RN - 04/23/2020 9:31 EST Has the patient ever been tested for COVID-19? : Yes, Patient stated results pending Date of COVID-19 test known? : Yes Does patient have symptoms of COVID-19? : No COVID19 Screening : No Experiencing Infectious Disease Symptoms : No symptoms Physical contact outside [place] in the last 30 days : No Infectious Disease History : Chicken pox/Shingles, Influenza Tuberculosis Symptoms : None Tomy Olvera Rn - 04/22/2020 15:08 EST COVID19 PreProcedure Screening Is this an Emergent or Add on Procedure? : No Date PreProcedure COVID-19 test known? : Yes Date of PreProcedure COVID-19 : 04/21/2020 EST Has patient been isolated since the test : No Exposed to COVID19 symptoms since test? : No Tomy Olvera Rn - 04/22/2020 15:08 EST Anesthesia/Transfusion History Family History of Anesthesia Reaction : No prior transfusion(s) Blood Transfusion Acceptable to Patient : Yes Transfusion History : Prior anesthesia reaction Type of Anesthesia Reaction : Excessive nausea/vomiting Family History of Anesthesia Reaction : None Tomy Olvera Rn - 04/22/2020 15:08 EST Functional Assessment Functional ADL Evaluation Index EBN Bathing : Independent (2) Dressing : Independent (2) Toileting : Independent (2) Transferring Bed or Chair : Independent (2) Continence : Independent (2) Feeding : Independent (2) Tomy Olvera Rn - 04/22/2020 15:08 EST ADL Index Score : 12 Tomy Olvera Rn - 04/22/2020 15:08 EST Advance Directive Patient has Advance Directive *Q : No, patient refuses Advance Directive information Tomy Olvera Rn - 04/22/2020 15:08 EST Spiritual/Cultural Needs Any Spiritual/Cultural Needs or Requests : Yes Spiritual/Cultural Needs Comment : 04/23/20 Mormonism Preference : Holiness Spiritual/Cultural Needs Comment : 04/23/20 Tomy Olvera Rn - 04/22/2020 15:08 EST [place] Suicide Severity Rating Scale (C-SSRS) CSSRS Past Month Wish to be : No CSSRS Past Month Suicidal Thoughts : No CSSRS Lifetime Suicide Behavior : No Suicide Severity Rating Score : 0 Suicide Severity Rating : No Additional Care Required at this time Tomy Olvera Rn - 04/22/2020 15:08 EST Psychosocial History Currently in Unsafe Situation : No Tomy Olvera Rn - 04/22/2020 15:08 EST General Info Arrived From : Home Patient Arrival Date/Time : 04/23/2020 9:14 EST VALERY Wynn RN - 04/23/2020 9:31 EST Preferred Name : Ivon Mode of Arrival on Unit : Ambulatory Legal Guardian : Mother Support Person/Patient Flash Ranging Crewmember : Yes Support Person/Pt Rep Name : Tawny Bernstein - mother Support Person/Pt Rep Contact Information : [phone] Want Family/Rep/Phys Notified of Admit : No Emergency Contact #1 : ` Emergency Contact #1 Phone Number : ` Emergency Contact #1 Relationship : ` Emergency Contact #2 : ` Emergency Contact #2 Phone Number : ` Emergency Contact #2 Relationship : ` Information Obtained From : Patient Primary Language : Bulgarian Communication Barrier : None Gas Plant Worker Needed : No Tomy Olvera Rn - 04/22/2020 15:08 EST Edmundo Scale Edmundo Sensory Perception : No impairment Edmundo Moisture : Rarely moist Edmundo Activity : Walks frequently Edmundo Mobility : No limitation Edmundo Nutrition : Adequate Edmundo Friction and Shear : No apparent problem Edmundo Score : 22 Tomy Olvera Rn - 04/22/2020 15:08 EST Sleep Apnea Risk Assmt BMI Greater Than 35 kg/m2 : Yes Neck Circumference Greater Than 40 cm : Yes STOP-BANG Sleep Apnea Risk Level Score : 3 VALERY Wynn RN - 04/23/2020 9:31 EST Hx of Obstructive Sleep Apnea Diagnosis : No Snore Loudly : No Tired, Fatigued, or Sleepy During Day : Yes Observed Stopping Breathing During Sleep : No Have/Are Being Treated for Hypertension : No Age over 50 Years Old : No Gender Male : No Tomy Olvera Rn - 04/22/2020 15:08 EST documented in this encounter Plan of Treatment Not on file documented as of this encounter Visit Diagnoses Not on filedocumented in this encounter
--- OUTSIDE RECORDS SUMMARY | 2024-01-11 19:04 | XMS_ITS | Encounter Summary ---
Author Organization [employer] Address [address] [place] [address] Care Team Providers Care Supervisor Computer Operations Name Role Phone Unavailable Primary Care Provider Unavailabl e Encounter Details Date Type Department Care Team (Late st Contact Info) Description 04/23/2020 Transcribed Document [facility] Family Medicine [facility] [place] [address] Preston Hinds MD [address] [place] [phone] 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 Tobacco Use Types Packs/Day Years Used Date Smoking Tobacco: Never Assessed Comments Unknown Sex and Gender Information Value Date Recorded Sex Assigned at Not on file Legal Sex Female 6:58 PM CDT Gender Identity Not on file Sexual Orientation Not on file documented as of this encounter Miscellaneous Notes * Cerner Conversion Note - Preston Hinds MD - 04/23/2020 2:45 PM STACKER Patient Education Materials Follows: General Anesthesia, Adult, Care After This sheet gives you information about how to care for yourself after your procedure. Your health care provider may also give you more specific instructions. If you have problems or questions, contact your health care provider. What can I expect after the procedure? After the procedure, the following side effects are common: ??? Pain or discomfort at the IV site. ??? Nausea. ??? Vomiting. ??? Sore throat. ??? Trouble concentrating. ??? Feeling cold or chills. ??? Weak or tired. ??? Sleepiness and fatigue. ??? Soreness and body aches. These side effects can affect parts of the body that were not involved in surgery. Follow these instructions at home: For at least 24 hours after the procedure: ??? Have a responsible adult stay with you. It is important to have someone help care for you until you are awake and alert. ??? Rest as needed. ??? Do not: ? Participate in activities in which you could fall or become injured. ? Drive. ? Use heavy machinery. ? Drink alcohol. ? Take sleeping pills or medicines that cause drowsiness. ? Make important decisions or sign legal documents. ? Take care of children on your own. Eating and drinking ??? Follow any instructions from your health care provider about eating or drinking restrictions. ??? When you feel hungry, start by eating small amounts of foods that are soft and easy to digest (bland), such as toast. Gradually return to your regular diet. ??? Drink enough fluid to keep your urine pale yellow. ??? If you vomit, rehydrate by drinking water, juice, or clear broth. General instructions ??? If you have sleep apnea, surgery and certain medicines can increase your risk for breathing problems. Follow instructions from your health care provider about wearing your sleep device: ? Anytime you are sleeping, including during daytime naps. ? While taking prescription pain medicines, sleeping medicines, or medicines that make you drowsy. ??? Return to your normal activities as told by your health care provider. Ask your health care provider what activities are safe for you. ??? Take [id number] and prescription medicines only as told by your health care provider. ??? If you smoke, do not smoke without supervision. ??? Keep all follow-up visits as told by your health care provider. This is important. Contact a health care provider if: ??? You have nausea or vomiting that does not get better with medicine. ??? You cannot eat or drink without vomiting. ??? You have pain that does not get better with medicine. ??? You are unable to pass urine. ??? You develop a skin rash. ??? You have a fever. ??? You have redness around your IV site that gets worse. Get help right away if: ??? You have difficulty breathing. ??? You have chest pain. ??? You have blood in your urine or stool, or you vomit blood. Summary ??? After the procedure, it is common to have a sore throat or nausea. It is also common to feel tired. ??? Have a responsible adult stay with you for the first 24 hours after general anesthesia. It is important to have someone help care for you until you are awake and alert. ??? When you feel hungry, start by eating small amounts of foods that are soft and easy to digest (bland), such as toast. Gradually return to your regular diet. ??? Drink enough fluid to keep your urine pale yellow. ??? Return to your normal activities as told by your health care provider. Ask your health care provider what activities are safe for you. This information is not intended to replace advice given to you by your health care provider. Make sure you discuss any questions you have with your health care provider. Document Released: 05/15/2001 Document Revised: 02/09/2018 Document Reviewed: 09/22/2017 [employer] Patient Education ? 2020 [employer] documented in this encounter Plan of Treatment Not on file documented as of this encounter Visit Diagnoses Not on filedocumented in this encounter
--- OUTSIDE RECORDS SUMMARY | 2024-01-11 19:04 | XMS_ITS | Encounter Summary ---
Author Organization [employer] Address [address] [place] [address] Care Team Providers Care Hcc Coders Name Role Phone Unavailable Primary Care Provider Unavailabl e Encounter Details Date Type Department Care Team (Late st Contact Info) Description 04/23/2020 Transcribed Document [facility] [place] [facility] [place] [address] ProviderPreston MD [address], [place] [id number] 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 Tobacco Use Types Packs/Day Years Used Date Smoking Tobacco: Never Assessed Comments Unknown Sex and Gender Information Value Date Recorded Sex Assigned at Not on file Legal Sex Female 6:58 PM CDT Gender Identity Not on file Sexual Orientation Not on file documented as of this encounter Miscellaneous Notes * Cerner Conversion Note - Historical ProviderMD - 04/23/2020 12:27 PM MARKING CLERK [facility] Main OR Preop Summary Primary Physician: ZONIA PENALOZA MD-SUR Finalized Date/Time: 04/23/20 12:58:00 Pt. Name: MICHELLE IVONLANA PEREZ D.O.B./Sex: 1990 Female Med Rec #: [id number] Physician: ZONIA PENALOZA MD-SUR Financial #: [id number] Pt. Type: O Room/Bed: /1 Admit/Disch: 04/23/20 09:08:00 - Institution: [facility] PreOp Case Times Entry 1 In Preop 04/23/20 09:15:00 Ready for Holding n/a Room Patient Ready for 04/23/20 09:49:00 Surgery Patient Out of Preop 04/23/20 11:55:00 Patient Out of n/a Holding Room Last Modified By: Martha Singh RN 04/23/20 12:57:59 [facility] PreOp Case Times Audit 04/23/20 12:57:59 Monument Erector: ANI Modifier: [email or web address] <+> 1 Patient Out of Preop 04/23/20 09:49:33 Monument Erector: ANI Modifier: [email or web address] <+> 1 Patient Ready for Surgery Finalized By: Martha Singh RN Document Signatures Signed By: Martha Singh RN 04/23/20 12:58 Electronically signed by [place] [facility] Conversion Division Engineer Cerner at 06/05/2022 6:47 PM CDT documented in this encounter Plan of Treatment Not on file documented as of this encounter Visit Diagnoses Not on filedocumented in this encounter
--- OUTSIDE RECORDS SUMMARY | 2024-01-11 19:04 | XMS_ITS | Encounter Summary ---
[facility] Address [address] [place] [id number] Care Team Providers Care Bowling Or Skating Front Desk Clerk Name Role Phone Unavailable Primary Care Provider Unavailabl e Encounter Details Date Type Department Care Team (Late st Contact Info) Description 05/29/2014 4:32 PM EDT - 05/29/2014 11:59 PM EDT Hospital Encounter [facility] DEPARTMENT [address] [place] [id number] Provider, [place] [address] 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 Tobacco Use Types Packs/Day Years [...]
--- OUTSIDE RECORDS SUMMARY | 2024-01-11 19:04 | XMS_ITS | Encounter Summary ---
Author Organization [facility] Address [address] [place] [address] Care Team Providers Care Evening Or Night Nurse Supervisor Name Role Phone Unavailable Primary Care Provider Unavailabl e Encounter Details Date Type Department Care Team (Late st Contact Info) Description 07/20/2014 8:15 PM EDT - 07/21/2014 12:40 AM EDT Hospital Encounter [facility] DEPARTMENT [address] [phone] Sahil Kimball MD [address] [facility] [address] [place] [address] 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 Tobacco Use Types Packs/Day Years [...] Procedure Name Priority Date/Time Associated Diagnosis Comments URINALYSIS, MICROSCOPIC ONLY Routine 07/20/2014 8:15 PM EDT URINE DRUG SCREEN Routine 07/20/2014 8:1 5 PM EDT URINALYSIS WITHOUT MICROSCOPIC (NO CULTURE) Routine 07/20/2014 8:15 PM EDT documented in this encounter Results * (ABNORMAL) Urinalysis, Microscopic only (07/20/2014 8:15 PM EDT) WBC, UA 31-50(A) NONE SEEN,0-2 /hpf [facility] RBC, UA 0-2 NONE SEEN,0-2 /hpf [facility] Epithelial Cells, UA 0-2 NONE SEEN,0-2 /hpf [facility] Bacteria, UA None Seen NONE SEEN /hpf [facility] Crystals, UA Moderate/2+ Calcium Oxalate(A) NONE SEEN [facility] Hyaline Casts, UA 7-12(A) 0 - 6 /hpf [facility] Urine specimen (specimen) Urine specimen obtained by clean catch procedure / Unknown 07/20/2014 8:15 PM EDT Narrative [facility] - 07/20/2014 9:53 PM EDT Specimen Type: Urine Specimen Source: Clean Catch Bacilio Espinoza MD URINE ORDERABLES Final Result Performing Organization Address City/State/[facility] Co de Phone Number [phone] [place] [address], * Rapid drug screen, urine (07/20/2014 8:15 PM EDT) THC Screen Interpretation Negative NEGATIVE ng/mL [facility] Comment:REVIEWED BY [place] Phencyclidine (PCP), Urine Negative NEGATIVE ng/mL [facility] Comment:REVIEWED BY [place] Cocaine Screen, Urine Negative NEGATIVE ng/mL [facility] Comment:REVIEWED BY [place] Methamphetamine, Urine Negative NEGATIVE ng/mL [facility] Comment:REVIEWED BY [place] Opiate Screen, Urine Negative NEGATIVE ng/mL [facility] Comment:REVIEWED BY [place] Amphetamine, Urine Qual Negative NEGATIVE ng/mL [facility] Comment: REVIEWED BY [place] DF by IF @ 07/20/2014 21:44 Test Cutoff THC 50 ng/mL PCP 25 ng/mL Cocaine 150 ng/mL Methamphetamine 500 ng/mL Opiate 100 ng/mL Amphetamine 500 ng/mL Benzodiazepine 150 ng/mL TCA 300 ng/mL Methadone 200 ng/mL Barbiturate 200 ng/mL Oxycodone 100 ng/mL Propoxyphene 300 ng/mL Buprenorphine 10 ng/mL The results are to be used for medical treatment purposes only. The results have not been confirmed by a confirmation method. Benzodiazepine Screen, Urine Negative NEGATIVE ng/mL [facility] Comment:REVIEWED BY [facility] TCA Screen Negative NEGATIVE ng/mL [facility] Comment:REVIEWED BY [place] ANGELR Methadone Screen, Urine Negative NEGATIVE ng/mL [facility] Comment:REVIEWED BY [place] Barbiturates Screen, Urine Negative NEGATIVE ng/mL [facility] Comment:REVIEWED BY [place] ANGEL[place] Oxycodone Screen, Urine Negative NEGATIVE ng/mL [facility] Comment:REVIEWED BY [facility] Propoxyphene Screen Negative NEGATIVE ng/mL [facility] Comment:REVIEWED BY [place]IG[place]EL ANGELR Buprenorphine, Screen, Urine Negative NEGATIVE ng/mL [facility] Comment:REVIEWED BY [place] ANGELR Urine specimen (specimen) 07/20/2014 8:15 PM EDT Narrative [facility] - 07/20/2014 9:44 PM EDT Specimen Type: Urine Bacilio Espinoza MD URINE ORDERABLES Final Result [facility] [address] [place] [address], * (ABNORMAL) Urinalysis Without Microscopic (07/20/2014 8:15 PM EDT) Color, UA Yellow [facility] Appearance, UA Clear [facility] pH, UA 5.5 4.5 - 8.0 [facility] Specific [place], UA 1.028 1.001 - 1.030 [facility] Glucose, UA 500(A) NEGATIVE mg/dL [facility] Ketones, UA Negative NEGATIVE [facility] Bilirubin, UA Negative NEGATIVE [facility] Blood, UA Negative NEGATIVE [facility] Protein, UA Negative NEGATIVE mg/dL [facility] Comment: DF by IF @ 07/20/2014 21:38 This test was previously referred to as Albumin Nitrite, UA Negative NEGATIVE [facility] Leukocytes, UA Small(A) NEGATIVE [facility] Urobilinogen, UA 0.2 0.2 - 1.0 mg/dL [facility] Urine specimen (specimen) Urine specimen obtained by clean catch procedure / Unknown 07/20/2014 8:15 PM EDT Narrative [facility] - 07/20/2014 9:38 PM EDT Specimen Type: Urine Specimen Source: Clean Catch Bacilio Espinoza MD URINE ORDERABLES Final Result [facility] [address] [place] [address], [place] [phone] documented in this encounter Visit Diagnoses Not on filedocumented in this encounter
--- OUTSIDE RECORDS SUMMARY | 2024-01-11 19:04 | XMS_ITS | Encounter Summary ---
Author Organization [facility] Address [address] [place] [address] Care Team Providers Care Corporate Events Director Name Role Phone Unavailable Primary Care Provider Unavailabl e Encounter Details Date Type Department Care Team (Late st Contact Info) Description 07/27/2014 11:29 PM EDT - 07/28/2014 1:15 AM EDT Hospital Encounter [facility] DEPARTMENT [address] [phone] Sahil Kimball MD [address] [facility] [address] [place] [address] 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 Tobacco Use Types Packs/Day Years [...] Associated Diagnosis Comments URINALYSIS, MICROSCOPIC ONLY Routine 07/28/2014 12:02 AM EDT URINALYSIS WITHOUT MICROSCOPIC (NO CULTURE) Routine 07/28/2014 12:02 AM EDT documented in this encounter Results * (ABNORMAL) Urinalysis, Microscopic only (07/28/2014 12:02 AM EDT) WBC, UA Too numerous to count(A) NONE SEEN,0-2 /hpf [facility] RBC, UA 7-12(A) NONE SEEN,0-2 /hpf [facility] Epithelial Cells, UA 3-6(A) NONE SEEN,0-2 /hpf [facility] Bacteria, UA 1+(A) NONE SEEN /hpf [facility] Hyaline Casts, UA 0-6 0 - 6 /hpf [facility] Urine specimen (specimen) Urine specimen obtained by clean catch procedure / Unknown 07/28/2014 12:02 AM EDT Narrative [facility] - 07/28/2014 12:40 AM EDT Specimen Type: Urine Specimen Source: Clean Catch us Russ Johnson MD URINE ORDERABLES Final Result Performing Organization Address City/State/[facility] [place] [address], * (ABNORMAL) Urinalysis Without Microscopic (07/28/2014 12:02 AM EDT) Color, UA Dk Yellow [facility] Appearance, UA Cloudy [facility] pH, UA 5.5 4.5 - 8.0 [facility] Specific [place], UA 1.036(H) 1.001 - 1.030 [facility] Glucose, UA Negative NEGATIVE mg/dL [facility] Ketones, UA Negative NEGATIVE [facility] Bilirubin, UA Negative NEGATIVE [facility] Blood, UA Negative NEGATIVE [facility] Protein, UA 100(A) NEGATIVE mg/dL [facility] Comment: DF by IF @ 07/28/2014 00:06 This test was previously referred to as Albumin Nitrite, UA Negative NEGATIVE [facility] Leukocytes, UA Moderate(A) NEGATIVE [facility] Urobilinogen, UA 0.2 0.2 - 1.0 mg/dL [facility] Urine specimen (specimen) Urine specimen obtained by clean catch procedure / Unknown 07/28/2014 12:02 AM EDT Narrative [facility] - 07/28/2014 12:06 AM EDT Specimen Type: Urine Specimen Source: Clean Catch us Russ Johnson MD URINE ORDERABLES Final Result Performing Organization Address City/State/[facility] [place] [address], documented in this encounter Visit Diagnoses Not on filedocumented in this encounter
--- OUTSIDE RECORDS SUMMARY | 2024-01-11 19:04 | XMS_ITS | Clinical Summary ---
Author Organization [employer] [facility] [employer] Address [address] [place] [address] Care Team Providers Care Music Leader Name Role Phone Unavailable Primary Care Provider Unavailabl e 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 Tobacco Use Types Packs/Day Years Used Date Smoking Tobacco: Never Assessed Comments Unknown Sex and Gender Information Value Date Recorded Sex Assigned at Not on file Legal Sex Female 6:58 PM CDT Gender Identity Not on file Sexual Orientation Not on file Plan of Treatment Not on file [place] [address] [place] [id number] [facility]
--- OUTSIDE RECORDS SUMMARY | 2024-01-11 19:04 | XMS_ITS | Encounter Summary ---
Author Organization [employer] [facility] [employer] Address [address] [place] [address] Care Team Providers Care Powerhouse Oiler Name Role Phone Unavailable Primary Care Provider Unavailabl e Encounter Details Date Type Department Care Team (Late st Contact Info) Description 04/23/2020 Transcribed Document [facility] [place] [address] ProviderPreston MD [address] [place] [phone] 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 Tobacco Use Types Packs/Day Years Used Date Smoking Tobacco: Never Assessed Comments Unknown Sex and Gender Information Value Date Recorded Sex Assigned at Not on file Legal Sex Female 6:58 PM CDT Gender Identity Not on file Sexual Orientation Not on file documented as of this encounter Miscellaneous Notes * Cerner Conversion Note - Historical ProviderMD - 04/23/2020 1:53 PM HOTEL STAFF MEMBER DATE OF PROCEDURE: 04/23/2020 SURGEON: Sahil Carvalho MD PREOPERATIVE DIAGNOSIS: Umbilical hernia. POSTOPERATIVE DIAGNOSIS: Umbilical hernia. PROCEDURE: Laparoscopic repair of umbilical hernia with mesh. ASSISTANTS: Stewart Tovar and Reji Wilson. ANESTHESIA: General endotracheal. INDICATION: Ivon Dowd is a 29-year-old female who presents with chronic discomfort in the central abdomen extending in the left upper quadrant. She had an appendectomy several months ago. She has a CT scan showing only a small fat containing umbilical hernia. FINDINGS: The patient had a small umbilical hernia. There was no omentum or bowel clot within the hernia. She had mild diastasis with a couple of small defects above the umbilical hernia. The repair was performed with a 4.5-inch round Bard Ventralight ST Mesh patch. DESCRIPTION OF PROCEDURE: The patient was brought to the operating room, where general endotracheal anesthesia was induced. She was sterilely prepped and draped. Preoperative antibiotics were in place. Sequential compression boots were used for DVT prophylaxis. Time-out was performed per protocol. 0.5% Marcaine with epinephrine was placed in each trocar site for postoperative analgesia. A small skin incision was made in the left upper quadrant, and Veress needle placed and CO2 pneumoperitoneum obtained. The Veress needle was removed, and then a 5 mm Optiview was used to enter the peritoneal cavity under direct vision with the laparoscope. Two additional ports were placed along the left lower abdominal wall under direct vision with the laparoscope. We explored the abdomen. The findings were as noted. Careful attention was also paid to the left upper quadrant with the patient on chronic discomfort. No abnormalities were seen. The liver appeared normal. There were no adhesions present. There was no inflammation of the tissues in this region. We then proceeded to repair the hernia. The round ligament and peritoneum were taken down with hook cautery. The umbilical defect was dissected out as were the two very small epigastric defects just above the umbilicus. There appeared to be some degree of diastasis in this region. All the fatty tissue was cleared from the anterior abdominal wall. A 4.5-inch round Bard Ventralight ST Mesh patch was then rolled up and passed in the peritoneal cavity and unrolled and pulled up to the anterior abdominal wall with a suture passer. The mesh was secured using absorbable tacking device in a double ring technique. There was excellent underlay coverage of the fascial defects including the area of diastasis. The peritoneum was reapproximated over the mesh with some tacks. Meticulous hemostasis was assured. There were no specimens. The 11 mm trocar site was closed at the fascia level with a 0 Vicryl stitch in a suture passer. Skin incisions were closed with 4-0 Monocryl in a subcuticular fashion followed by Dermabond. Sterile compressive dressings were placed followed by an abdominal binder. The patient tolerated the procedure well. There were no immediate complications. The sponge and needle counts were correct. She was taken to Recovery in stable condition. /[id number] MD SARY Dillon/JEANNIE / SARY / INÉS /[id number] Electronically signed by [place], [employer] Repair Department Supervisor Cerner at 06/05/2022 6:49 PM CDT documented in this encounter Plan of Treatment Not on file documented as of this encounter Visit Diagnoses Not on filedocumented in this encounter
--- OUTSIDE RECORDS SUMMARY | 2024-01-11 19:04 | XMS_ITS | Encounter Summary ---
Author Organization [employer] Address [address] [place] [address] Care Team Providers Care Reclamation Engineer Name Role Phone Unavailable Primary Care Provider Unavailabl e Encounter Details Date Type Department Care Team (Late st Contact Info) Description 04/23/2020 Transcribed Document [facility], [facility] [place] [address] ProviderPreston MD [address] [place] [address] [phone] 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 Tobacco Use Types Packs/Day Years Used Date Smoking Tobacco: Never Assessed Comments Unknown Sex and Gender Information Value Date Recorded Sex Assigned at Not on file Legal Sex Female 6:58 PM CDT Gender Identity Not on file Sexual Orientation Not on file documented as of this encounter Miscellaneous Notes * Cerner Conversion Note - Preston ProviderMD - 04/23/2020 12:27 PM HOSPITALITY MANAGER [facility] Main OR IntraOp Summary Primary Physician: ZONIA PENALOZA MD-SUR Finalized Date/Time: 04/25/20 10:43:12 Pt. Name: ARIADNE MARTINEZ ANA /Sex: 1990 Female Med Rec #: [id number] Physician: ZONIA PENALOZA MD-SUR Financial #: [id number] Pt. Type: O Room/Bed: /1 Admit/Disch: 04/23/20 09:08:00 - 04/23/20 15:00:00 Institution: [facility] IntraOp Case Attendance Entry 1 Entry 2 Entry 3 Case Attendee ZONIA PENALOZA MD-SUR HOLMAN, JASMINE, NA WORLEY, CYNTHIA LEE, MD-ANS Role Performed Surgeon/Proceduralist, LENS POLISHER HAND/Nurse Hand Sprayer Anesthesiologist of First Record Time In 04/23/20 11:57:00 04/23/20 11:57:00 04/23/20 11:57:00 Time Out 04/23/20 13:14:00 04/23/20 13:14:00 04/23/20 13:14:00 Procedure Hernia Repair Umbilical Hernia Repair Umbilical Hernia Repair Umbilical Laparoscopic Laparoscopic Laparoscopic Other Attendee Superficial Wound Closed By: Last Modified By: Naima Tavares RN Poff, Janie, RN Poff, Janie, RN 04/23/20 13:14:26 04/23/20 13:14:26 04/23/20 13:14:26 Entry 4 Entry 5 Entry 6 Case Attendee CROW DUTTON Robin A, Surgical Naima Tavares, RADHA Automation Controls Expert Role Performed Beader Tender, First Scrub, First Svp Business Development, First Time In 04/23/20 11:57:00 04/23/20 11:57:00 04/23/20 11:57:00 Time Out 04/23/20 13:14:00 04/23/20 13:14:00 04/23/20 13:14:00 Procedure Hernia Repair Umbilical Hernia Repair Umbilical Hernia Repair Umbilical Laparoscopic Laparoscopic Laparoscopic Other Attendee Superficial Wound Closed By: Last Modified By: Naima Tavares RN Poff, Janie, RN Poff, Janie, RN 04/23/20 13:14:26 04/23/20 13:14:26 04/23/20 13:14:26 Entry 7 Entry 8 Case Attendee Deo Savage REP - SSI OTHER, ATTENDEE #1 Role Performed Automation Controls Expert, Ancillary Student Time In 04/23/20 11:57:00 04/23/20 11:57:00 Time Out 04/23/20 13:14:00 04/23/20 13:14:00 Procedure Hernia Repair Umbilical Hernia Repair Umbilical Laparoscopic Laparoscopic Other Attendee Specialty Care Stewart Tovar, medical student Superficial Wound Closed By: Last Modified By: Naima Tavares, Naima Arredondo RN 04/23/20 13:14:26 04/23/20 13:14:26 [facility] IntraOp Case Attendance Audit 04/23/20 13:14:26 Insole Cementer: POFFJAN Modifier: POFFJAN 1 <+> Time Out 1 <*> Procedure Hernia Repair Umbilical Laparoscopic 2 <+> Time Out 2 <*> Procedure Hernia Repair Umbilical Laparoscopic 3 <+> Time Out 3 <*> Procedure Hernia Repair Umbilical Laparoscopic 4 <+> Time Out 4 <*> Procedure Hernia Repair Umbilical Laparoscopic 5 <+> Time Out 5 <*> Procedure Hernia Repair Umbilical Laparoscopic 6 <+> Time Out 6 <*> Procedure Hernia Repair Umbilical Laparoscopic 7 <+> Time Out 7 <*> Procedure Hernia Repair Umbilical Laparoscopic 8 <+> Time Out 8 <*> Procedure Hernia Repair Umbilical Laparoscopic 04/23/20 13:06:00 Insole Cementer: POFFJAN Modifier: POFFJAN 1 <*> Procedure Hernia Repair Umbilical Laparoscopic 2 <+> Time In 2 <*> Procedure Hernia Repair Umbilical Laparoscopic 3 <+> Time In 3 <*> Procedure Hernia Repair Umbilical Laparoscopic 4 <+> Time In 4 <*> Procedure Hernia Repair Umbilical Laparoscopic 5 <+> Time In 5 <*> Procedure Hernia Repair Umbilical Laparoscopic 6 <+> Time In 6 <*> Procedure Hernia Repair Umbilical Laparoscopic 7 <+> Time In 7 <*> Procedure Hernia Repair Umbilical Laparoscopic 8 <+> Time In 8 <*> Procedure Hernia Repair Umbilical Laparoscopic [facility] IntraOp Case Times Entry 1 Patient In Room Time 04/23/20 11:57:00 Out Room Time 04/23/20 13:14:00 Anesthesia Start Time 04/23/20 11:57:00 Stop Time 04/23/20 13:14:00 Surgery / Procedure Times Start Time 04/23/20 12:27:00 Stop Time 04/23/20 13:02:00 Last Modified By: Naima Tavares RN 04/23/20 13:14:14 [facility] IntraOp Case Times Audit 04/23/20 13:14:14 Insole Cementer: POFFJAN Modifier: POFFJAN <+> 1 Out Room Time <+> 1 Stop Time 04/23/20 13:06:14 Insole Cementer: POFFJAN Modifier: POFFJAN <+> 1 Stop Time 04/23/20 12:34:08 Insole Cementer: POFFJAN Modifier: POFFJAN <+> 1 Start Time [facility] IntraOp Cautery Entry 1 ESU Identification Cautery Type Monopolar ESU ID Number [id number] ID Type Hospital Number Cautery Settings Cut Setting 1 Coag Setting 30 ESU Grounding Pad Ground Pad Type Adult Grounding Pad Site Right thigh Grounding Pad MARIJACROW ALCAZAR A. Applied By Grounding Pad Site Dry, Intact, Warm Skin Condition Before Cautery Grounding Pad Site Unchanged Skin Condition After Cautery Last Modified By: Naima Tavares RN 04/23/20 12:35:31 [facility] IntraOp Communication Entry 1 Communication To Family/Significant other Comment Procedure start Communication By Naima Tavares RN Date and Time 04/23/20 12:35:00 Last Modified By: Naima Tavares RN 04/23/20 12:35:46 [facility] IntraOp Counts Verification Entry 1 Procedure Hernia Repair Umbilical Laparoscopic Count Info Count Type Sponge, Sharps, Instrument, Miscellaneous Counts Verification Baseline/pre-procedure Sequence Count Results Not Applicable Counts Performed By Count Performed By Jacky Salgado, Surgical (Scrub) Automation Controls Expert Count Performed By Naima Tavares RN (RN) Last Modified By: Naima Tavares RN 04/23/20 12:36:25 [facility] IntraOp Counts Final Entry 1 Procedure Hernia Repair Umbilical Laparoscopic Final Count Info Count Type Sponge, Sharps, Miscellaneous Counts Verification Skin Closure/end of Sequence procedure Count Results Correct, surgeon notified Counts Performed By Count Performed By Jacky Salgado, Surgical (Scrub) Automation Controls Expert Count Performed By Naima Tavares RN (RN) Last Modified By: Naima Tavares RN 04/23/20 13:06:33 [facility] IntraOp Counts Final Audit 04/23/20 13:06:33 Insole Cementer: SANDRA Modifier: SANDRA 1 <*> Procedure Hernia Repair Umbilical Laparoscopic 1 <+> Count Performed By (Scrub) 1 <+> Count Performed By (RN) [facility] IntraOp Departure from OR Entry 1 Integumentary Assessment Integumentary WDL with patient Assessment WDL specific variances Patient's Normal Surgical incisions = Integumentary abdomen Variance(s) Transfer/Handoff Transfer to PACU Phase I Handoff Method Phone call Handoff Reported to Zia Luque RN Post-op Transport Stretcher/Gurney Via Patient Transport AMANDA MATA NA, Accompanied by Naima Tavares RN Last Modified By: Naima Tavares RN 04/23/20 13:14:36 [facility] IntraOp Departure from OR Audit 04/23/20 13:14:36 Insole Cementer: SANDRA Modifier: SANDRA 1 <*> Patient Transport Accompanied by CROW DUTTON [facility] IntraOp Dressing and Packing Entry 1 Type Dressing Location Abdomen Wound Dressing Item Skin Closure Glue, Abdominal binder, ABD dressing pad Applied By CROW DUTTON. Other Comments Dermabond Last Modified By: Naima Tavares RN 04/23/20 12:37:49 [facility] IntraOp Fire Risk Assessment Entry 1 Fire Info Surgical Site or 0- No Incision Above the Xyphoid Open O2 Source 0- No (Mask or Cannula) Available Ignition 1- Yes (ESU, Laser, Light Source) Fire Risk 1 Assessment Score Fire Score Fire Risk Yes Assessment Complete Fire Risk Naima Tavares RN Assessment Verified By Fire Risk 04/23/20 12:27:00 Assessment Verified Date/Time Fire Risk Standard Fire Yes Safety Precautions Followed Last Modified By: Naima Tavares RN 04/23/20 12:38:12 [facility] IntraOp Fire Risk Assessment Audit 04/23/20 12:38:12 Insole Cementer: SANDRA Modifier: SANDRA 1 <*> Open O2 Source (Mask or Cannula) 1- Yes 1 <*> Fire Risk Assessment Score 2 1 <+> Fire Risk Assessment Verified Date/Time 04/23/20 12:33:58 Insole Cementer: SANDRA Modifier: SANDRA <+> 1 Fire Risk Assessment Verified By <+> 1 Standard Fire Safety Precautions Followed [facility] IntraOp General Case Retail Store Clerk 1 Case Information OR OR 06 [facility] Case Level 1 Room Verified Yes Wound Class II - Clean-Contaminated Specialty SN General Anesthesia Type General ASA Class 3 Diagnosis Preop Diagnosis Umbilical hernia Postop Same As Preop Yes Postop Diagnosis Umbilical hernia Last Modified By: Naima Tavares RN 04/23/20 12:41:40 [facility] IntraOp General Case Data Audit 04/23/20 12:41:40 Insole Cementer: SANDRA Modifier: SANDRA 1 <*> OR OR 08 [facility] 1 <+> ASA Class 1 <+> Anesthesia Type 1 <+> Postop Same As Preop 1 <+> Preop Diagnosis 1 <+> Postop Diagnosis 1 <+> Room Verified [facility] IntraOp Implant Log Entry 1 Entry 2 Entry 3 Type Implant (Synthetic) Implant (Synthetic) Implant (Synthetic) Implant Log Implant Type Mesh Other Other Tissue Implant Type Implant MESH [address] ECHO DEVICE FIXATION DEVICE FIXATION Identification 4.5 [id number] ABSORBABLE [id number] ABSORBABLE [id number] Description Implant Quantity 1 1 1 Implant Site Operative site Operative site Operative site Implant Identification Model Number Implant Identification Serial Number Implant [id number] Identification Lot Number Implant Cr :Clint J&J:Ethicon:Endo-Surgery J&J:Ethicon:Endo-Surgery Identification Mail Sorter Name: Implant [id number] [id number] STRAP25 Identification Catalog Number Implant Size Implant Has an Yes Yes Yes Expiration Date Implant Expiration 12/17/20 10/21/21 08/20/21 Date Wasted Radioactive Material Time Implanted Tissue Implant Continue for Tissue Implant Documentation Tissue Identification Number Graft Prep Per Mail Sorter Instructions: Tissue Preparation Method: Reconstitution Solution: Reconstitution Solution Lot Number Reconstitution Solution Expiration Date: Thawing Solution Thawing Solution Lot Number Thawing Solution Expiration Date Preparation Materials, Other Preparation Materials, Other Lot Number Preparation Materials, Other Expiration Date Tissue Prepared/Processed By Mail Sorter Paperwork Completed Implant Type Comment Last Modified By: Naima Tavares RN Poff, Janie, RN Poff, Janie, RN 04/23/20 12:48:05 04/23/20 12:49:38 04/23/20 12:55:45 [facility] IntraOp Implant Log Audit 04/23/20 12:55:45 Insole Cementer: SANDRA Modifier: SANDRA <+> 3 Implant Identification Description <+> 3 Implant Identification Lot Number <+> 3 Implant Identification Mail Sorter Name: <+> 3 Implant Expiration Date <+> 3 Implant Site <+> 3 Implant Quantity <+> 3 Implant Identification Catalog Number <+> 3 Implant Type <+> 3 Implant Has an Expiration Date <+> 3 Type 04/23/20 12:49:38 Insole Cementer: SANDRA Modifier: POFFJAN <+> 2 Implant Identification Description <+> 2 Implant Identification Lot Number <+> 2 Implant Identification Mail Sorter Name: <+> 2 Implant Expiration Date <+> 2 Implant Site <+> 2 Implant Quantity <+> 2 Implant Identification Catalog Number <+> 2 Implant Type <+> 2 Implant Has an Expiration Date <+> 2 Type [facility] IntraOp Intraoperative Assessment Entry 1 Handoff Method Online nursing summary Valid History / Yes Physical in Chart Preoperative Yes Checklist Reviewed/Evaluated Allergies Reviewed Yes Patient is Latex No Sensitive Isolation Not applicable Precautions Noted Level of WDL Consciousness (WDL = Alert, Oriented to Person, Place, and Time) Skin Assessment Yes Verified Present Upon IVs Arrival to OR Last Modified By: Naima Tavares RN 04/23/20 12:38:53 [facility] IntraOp Intraoperative Equipment Entry 1 Type Monitoring Equipment Equipment Wendi Suction System ID Number [id number] Intraop Monitoring Electrocardiogram Five lead placement (ECG) Electrode Placement Blood Pressure Non-Invasive BP Device Source Antiembolic Devices Antiembolic Devices Sequential compression device, knee high Antiembolic Device Bilateral Location Antiembolic Device [id number] ID Number Scopes Photo/Video Documentation Photo No Video No Intraop Equipment Sequential compression Comment devices on and in operation prior to induction of anesthesia. Last Modified By: Naima Tavares RN 04/23/20 12:40:01 [facility] IntraOp Medication Admin Entry 1 Medication/Irrigant MARCAINE .5% WITH EPI 1:200,000 Time Administered 04/23/20 12:27:00 Route of LOCAL Administration Dose Dose 23 Unit of Measure ml Administered By ZONIA PENALOZA MD-JILLIAN Procedure Irrigation Last Modified By: Naima Tavares RN 04/23/20 12:58:35 [facility] IntraOp Medication Admin Audit 04/23/20 12:58:35 Insole Cementer: SANDRA Modifier: SANDRA <+> 1 Dose [facility] IntraOp Patient Positioning Entry 1 Procedure Hernia Repair Umbilical Laparoscopic Body Position Supine Left Arm Position Tucked and padded at side Right Arm Position Secured on padded arm board Left Leg Position Uncrossed, parallel Right Leg Position Uncrossed, parallel Feet Uncrossed Yes Pressure Points Yes Checked Positioning Devices Head Rest, Arm Board, Pad, Elbow, Pad (Other), Pad, Elbow, Pad (Other), Safety Strap, Thighs Pad/Roll Location wrists Positioned By Naima Tavares RN, AMANDA MATA NA, SUGGS, ANTOINE A. Position Verified Positioning Yes Verified by Anesthesia Positioning Yes Verified by Surgeon Last Modified By: Naima Tavares RN 04/23/20 12:33:41 [facility] IntraOp Sign In Entry 1 Patient, Site, Yes Procedure Identified Surgical Consent Yes Confirmed Relevant Surgical Yes Documents Available Surgical Site N/A Marked by person performing procedure Anesthesia Machine Yes Check Completed Medication Checks Yes Completed Allergies Yes Airway Difficult Yes Airway/Aspiration Risk Difficult Yes Airway/Aspiration Intervention Equipment Available Blood Loss Risk Yes Blood Loss Yes Intervention Equipment Prepared and Ready Blood Identifiers Not applicable Verified Per Policy Hypothermia Risk Yes Warming Measures Yes Taken Last Modified By: Naima Tavares RN 04/23/20 12:21:14 [facility] IntraOp Sign Out Entry 1 RN Confirmation Surgical Yes Procedure(s) Identified Instrument, Sponge Yes and Sharps Counts Correct/Documented Equipment Problems N/A Documented Specimen Labeled Yes Correctly Urinary Catheter N/A Documented in IView [place] Patient Yes Recovery Concerns Reviewed with Anesthesia Provider, Surgeon and RN [place] Patient Yes Management Concerns Reviewed with Anesthesia Provider, Surgeon and RN Safety Checklist Yes Elements Complete? RN Sign Out Naima Tavares RN Signature RN Sign Out 04/23/20 13:14:00 Signature Date/Time Plan of Care Outcome - Fire Risk OUTCOME STATEMENT: Goal met Patient is free from injury related to surgical fire Plan of Care Outcome - Pt Positioning OUTCOME STATEMENT: Goal met Absence of signs and symptoms of positioning injury. Plan of Care Outcome - Skin Prep OUTCOME STATEMENT: Goal met Intraoperative care is consistent with measures to prevent infection Plan of Care Outcome - Xray/Images OUTCOME STATEMENT: Goal met Absence of observable signs or symptoms of radiation injury Plan of Care Outcome - Counts OUTCOME STATEMENT: Goal met Absence of signs and symptoms of injury related to extraneous objects Last Modified By: Naima Tavares RN 04/23/20 13:14:22 [facility] IntraOp Sign Out Audit 04/23/20 13:14:22 Insole Cementer: SANDRA Modifier: SANDRA <+> 1 RN Sign Out Signature Date/Time [facility] IntraOp Skin Prep Entry 1 Procedure Hernia Repair Umbilical Laparoscopic Prescribed Yes Pre-Surgical Prep Completed Prep Area ABDOMEN Intraop Prep Integumentary WDL Assessment WDL Prep Agents Chloraprep Prep by ZONIA PENALOZA MD-JILLIAN Hair Removal Methods No hair removal performed Last Modified By: Naiam Tavares RN 04/23/20 12:41:55 [facility] IntraOp Surgical Procedures Entry 1 Procedure Hernia Repair Umbilical Laparoscopic Additional LAPAROSCOPIC UMBILICAL Procedure HERNIA REPAIR WITH MESH Description Primary Procedure Yes Primary Surgeon ZONIA PENALOZA MD-JILLIAN Start 04/23/20 12:27:00 Stop 04/23/20 13:02:00 Anesthesia Type General Specialty SN General Wound Class II - Clean-Contaminated Last Modified By: Naima Tavares RN 04/23/20 13:06:39 [facility] IntraOp Surgical Procedures Audit 04/23/20 13:06:39 Insole Cementer: SANDRA Modifier: POFFJAN <+> 1 Stop 04/23/20 12:37:52 Insole Cementer: SANDRA Modifier: POFFJAN <+> 1 Start [facility] IntraOp Temp Regulation Devices Entry 1 Temp Regulation Temperature Warm blankets, Forced Regulation Device Air Warming device Temperature 74422 Regulation Device Serial/Unit Number Temperature Upper body Regulation Site Temperature MATA, AMANDA, NA Regulation Device Applied by Temperature Patient's temperature Regulation Comment and forced air warming device settings monnitored by anesthesia provider. Last Modified By: Naima Tavares RN 04/23/20 12:41:02 [facility] IntraOP Time Out Entry 1 Procedure to be Hernia Repair Umbilical Performed Laparoscopic Time Out Time Out Pause Time 04/23/20 12:27:00 All activity Yes suspended (unless life threatening emergency) Team Verbally Correct patient Confirms Information identity, Correct side and site are marked, Consent form is present and accurate, Agreement on the procedure to be done, Correct patient position, Confirm antibiotics have been administered, Confirm the skin prep has dried, Confirm prosthesis/implant/devic e is present, Performed in location of procedure after prepped/draped Antibiotic Yes Prophylaxis Administered Or In Progress Within the Last 60 Minutes Beta Irvin N/A Administered Venous Yes Thromboembolism Prophylaxis Required Anticipated Critical Events Surgeon None expected Anesthesia Provider None expected Nursing Assures Sterility of instruments, Implant Availability Essential Imaging N/A Labeled and Displayed Last Modified By: Naima Tavares RN 04/23/20 12:38:42 Case Comments <None> Finalized By: TITO MATTSON Document Signatures Signed By: Naima Tavares RN 04/23/20 13:57 TITO MATTSON 04/25/20 10:43 Unfinalized History Date/Time Username Reason for Unfinalizing Freetext Reason for Unfinalizing 04/25/20 10:41 WATTSDR Correct Billing documented in this encounter Plan of Treatment Not on file documented as of this encounter Visit Diagnoses Not on filedocumented in this encounter
--- OUTSIDE RECORDS SUMMARY | 2024-01-11 19:04 | XMS_ITS | Encounter Summary ---
[facility] Address [address] [place] [id number] Care Team Providers Care Dialysis Chief Equipment Technician Name Role Phone Unavailable Primary Care Provider Unavailabl e Encounter Details Date Type Department Care Team (Late st Contact Info) Description 08/14/2014 2:18 PM EDT - 08/14/2014 11:59 PM EDT Hospital Encounter [facility] [address] [place] [address] Maxx Smith MD [address] [facility] [address] [place] [address] 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 Tobacco Use Types Packs/Day Years [...]
--- OUTSIDE RECORDS SUMMARY | 2024-01-11 19:04 | XMS_ITS | Encounter Summary ---
Author Organization [facility] Address [address] [place] [id number] Care Team Providers Care Business Continuity Manager Name Role Phone Unavailable Primary Care Provider Unavailabl e Encounter Details Date Type Department Care Team (Late st Contact Info) Description 08/21/2014 10:21 PM EDT - 08/26/2014 5:34 PM EDT Hospital Encounter [facility] [address] [place] [phone] Sahil Smith MD [address] [facility] [address] [place] [address] Discharge Disposition: Home or Self Care 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 Tobacco Use Types Packs/Day Years Used Date Smoking Tobacco: Never Assessed Comments Unknown Sex and Gender Information Value Date Recorded Sex Assigned at Not on file Legal Sex Female 1:22 PM EDT Gender Identity Not on file Sexual Orientation Not on file documented as of this encounter Discharge Summaries * Interface, See Report - 08/21/2014 10:21 PM EDT [facility] [address] [place], [place] [address] DISCHARGE SUMMARY PATIENT NAME: IVON MARTINEZ ROOM NUMBER: [id number] VISIT NUMBER: [id number] DATE OF : 1990 DATE OF ADMISSION: 08/21/2014 DATE OF DISCHARGE: 08/26/2014 DISCHARGE DIAGNOSES: 1. Intrauterine at 36-6/7 weeks gestation. 2. Poorly controlled diabetes. 3. History of prior section (desires repeat section). 4. Complaints of decreased movement and intermittent heart rate decelerations. 5. Obesity. PROCEDURES PERFORMED: Repeat low segment transverse section and bilateral tubal ligation on 08/22/2014. ATTENDING PHYSICIAN: Nj Smith MD DELIVERING PHYSICIAN: Luisa Martino MD HOSPITAL COURSE: The patient is a 23-year-old G2, P1 with complaints of decreased movement on the evening of 08/21/2014. She had been followed in the office and had late onset of gestational diabetes which has been poorly controlled. She was scheduled to be admitted on Monday for blood sugar management and delivery the following Monday; however, she was noted to have some heart rate decelerations on the monitor and with poorly controlled gestational diabetes, decision was made to proceed with delivery. She understood the risks and benefits. The patient underwent the above procedure on 08/22/2014 with delivery of viable male infant weighing 8 pounds, 11 ounces with score of 8 at one minute and 8 at five minutes. Estimated blood loss from the procedure was 500 mL. Postoperatively, the patient had a Dyson catheter that was removed on postoperative day #1. Postoperative day #1, blood sugar was 72. She was advanced to a 2400 calorie ADA diet and blood sugars were monitored. Fasting blood sugar on 08/24/2014 was 135. She was started on glyburide. Baby was in the NICU and stable. On postop day #3, hematocrit was 30.7. She was discharged home on postoperative day #4. She was to continue with her glyburide and 2800 calorie ADA diet. FOLLOWUP: With Dr. Smith in 2 weeks or p.r.n. DISCHARGE MEDICATIONS: 1. Percocet 5/325 mg 1 p.o. q.4 h. p.r.n. pain. 2. Motrin 600 mg 1 p.o. q.6 h. p.r.n. pain. 3. vitamins. Nj Smith MD* JTA/rxtrd Voice Rec. ID #[id number] Voice Original ID #[id number] Doc ID #[id number] Rev. #0 [No PCP on file] cc: Nj Smith MD* DO NOT TEXT EDIT THIS LINE :[id number]: Authenticated by Prashant SMITH M.D. On 10/20/2014 04:41:05 PM documented in this encounter OR Notes * Op Note - Interface, See Report - 08/21/2014 10:21 PM EDT [place] [address] OPERATIVE REPORT PATIENT NAME: IVON MARTINEZ ROOM NUMBER: [id number] VISIT NUMBER: [id number] DATE OF : 1990 DATE OF OPERATION: 08/22/2014 PREOPERATIVE DIAGNOSES: 1. Intrauterine at 36-6/7 weeks. 2. Poorly controlled gestational diabetes. 3. History of prior sections and desires repeat. 4. Decreased movement with intermittent heart rate deceleration. 5. Obesity. 6. Desires permanent surgical sterilization. POSTOPERATIVE DIAGNOSES: 1. Intrauterine at 36-6/7 weeks. 2. Poorly controlled gestational diabetes. 3. History of prior sections and desires repeat. 4. Decreased movement with intermittent heart rate deceleration. 5. Obesity. PROCEDURE: 1. Repeat section, low transverse uterine incision. 2. Bilateral tubal ligation. SURGEON: Luisa Martino MD. DISTRIBUTION TECHNICIAN: Oliva Rodriguez ESTIMATED BLOOD LOSS: 500 mL. FINDINGS: Viable male infant weighing 8 pounds 11 ounces with scores of 8 at one minute and 8 at five minutes. INDICATIONS: The patient is a 23-year-old G2, P1, who presented with decreased movement on the evening of 08/21/2014. She had been followed in the office and has had poorly controlled gestational diabetes. She was scheduled to be admitted on Monday for blood sugar management and delivery on the following Monday. However, given intermittent heart rate decelerations, history of poorly controlled gestational diabetes with a fasting of 140 on the morning 08/22/2014, the decision was made to proceed with delivery. She understood the indications and had no questions preoperatively. DESCRIPTION OF PROCEDURE: The patient was taken to the Operating Room where adequate anesthesia was obtained. She was prepped and draped in the usual sterile fashion. A Pfannenstiel incision was made and carried to the anterior rectus fascia. The fascia was incised and carried laterally with curved Chavarria scissors. The underlying muscle was with sharp and blunt dissection and the midline was identified, entered sharply, and taken superiorly and inferiorly with care to avoid injury to the bladder dome. A low transverse uterine incision was made above the bladder and the baby delivered without difficulty in the cephalic presentation. The erna- and nasopharynx were suctioned on the abdomen. The cord was doubly clamped and the handed to the resuscitation team. Cord blood and gas were obtained. The placenta was manually removed. The uterus was everted from the abdomen and curetted with a moist lap sponge x2. The incision was closed with #1 chromic, followed by a second imbricating stitch. Any bleeding points were made hemostatic with Bovie electrocautery or separate 2-0 chromic interrupted suture. The posterior cul-de-sac was irrigated and aspirated. The fallopian tubes were identified by its fimbriated end. Each was elevated and secured with a plain gut suture in a modified Barronett fashion. The intervening segment of tube was passed off the field. The uterus was inspected again and placed into the abdomen. The lateral gutters were irrigated and aspirated. The incision was reinspected. There was some oozing from the right angle of the incision, this was made hemostatic with separate 2-0 Vicryl suture and good hemostasis was then noted and Interceed was placed. The gutters had been irrigated previously. The tubal sites were inspected and noted to be hemostatic and the peritoneum could not be closed due to an omental adhesion that was taken down with the use of hemostats and separate 2-0 Vicryl ties. The peritoneum was then closed with 2-0 Vicryl in a running fashion. The muscle was reapproximated in the midline. There was bleeding at the apex of the peritoneal closure at the fascial level, this was secured with 2-0 chromic. The patient did have significant nausea and vomiting extruding her bowel several times throughout the peritoneal closure. Care was taken not to incorporate any omentum or bowel into this closure as well. The fascia was then closed with 0 Vicryl in a running fashion x2 meeting in the midline. The subcutaneous tissue was irrigated multiple times. It was undermined inferiorly to allow a tension-free closure. The subcutaneous tissue was reapproximated with 3-0 plain gut suture and the skin was closed with marlyn. The patient went to recovery awake and stable. All sponge, instrument and needle counts were correct. Luisa Martino MD* LS/rxsf Voice Rec. ID #[id number] Original Voice Rec. ID #[id number] Doc ID #[id number] Revision Count: 0 cc: Luisa Martino MD* <start header> [place] [address] OPERATIVE REPORT PATIENT NAME: IVON MARTINEZ ROOM NUMBER: [id number] VISIT NUMBER: [id number] DATE OF : 1990 <end header> DO NOT TEXT EDIT THIS LINE :BAG MENDER:[id number]: Authenticated by LUISA MARTINO M.D. On 08/23/2014 12:42:40 PM documented in this encounter Plan of Treatment Not on file documented as of this encounter Procedures Procedure Name Priority Date/Time Associated Diagnosis Comments POCT GLUCOSE FINGERSTICK Routine 08/26/2014 9:59 AM EDT POCT GLUCOSE FINGERSTICK Routine 08/26/2014 7:10 AM EDT POCT GLUCOSE FINGERSTICK Routine 08/25/2014 9:03 PM EDT POCT GLUCOSE FINGERSTICK Routine 08/25/2014 1:48 PM EDT POCT GLUCOSE FINGERSTICK Routine 08/24/2014 2:51 PM EDT POCT GLUCOSE FINGERSTICK Routine 08/24/2014 7:20 AM EDT POCT GLUCOSE FINGERSTICK Routine 08/23/2014 7:44 PM EDT POCT GLUCOSE FINGERSTICK Routine 08/23/2014 2:13 PM EDT POCT GLUCOSE FINGERSTICK Routine 08/23/2014 11:56 AM EDT CBC (NO DIFF) Routine 08/23/2014 7:44 AM EDT POCT GLUCOSE FINGERSTICK Routine 08/23/2014 5:55 AM EDT POCT GLUCOSE FINGERSTICK Routine 08/23/2014 2:28 AM EDT CBC (NO DIFF) Routine 08/22/2014 11:26 PM EDT POCT GLUCOSE FINGERSTICK Routine 08/22/2014 9:30 PM EDT POCT GLUCOSE FINGERSTICK Routine 08/22/2014 7:06 PM EDT ARTERIAL CORD GAS W/DIR ROBSON SAT Routine 08/22/2014 4:52 PM EDT VENOUS CORD GAS W/DIR ROBSON SAT Routine 08/22/2014 4:50 PM EDT POCT GLUCOSE FINGERSTICK Routine 08/22/2014 3:52 PM EDT POCT GLUCOSE FINGERSTICK Routine 08/22/2014 2:37 PM EDT CBC (NO DIFF) Routine 08/22/2014 2:34 PM EDT TYPE AND SCREEN Routine 08/22/2014 2:34 PM EDT POCT GLUCOSE FINGERSTICK Routine 08/22/2014 11:11 AM EDT POCT GLUCOSE FINGERSTICK Routine 08/22/2014 7:45 AM EDT POCT GLUCOSE FINGERSTICK Routine 08/22/2014 12:02 AM EDT CONVERTED (HISTORICAL) SURGICAL PATHOLOGY Routine 08/21/2014 10:21 PM EDT documented in this encounter Results * (ABNORMAL) POCT Glucose Fingerstick (08/26/2014 9:59 AM EDT) Glucose 126(H) 70 - 100 mg/dL [facility] Blood specimen (specimen) 08/26/2014 9:59 AM EDT [facility] - 08/26/2014 10:03 AM EDT Specimen Type: Blood Historical Provider MD POINT OF CARE TEST ORDERA BLES Final Result Performing Organization Address City/[facility] Co de Phone Number [facility] [address] [place] [address], [place] [phone] * POCT Glucose Fingerstick (08/26/2014 7:10 AM EDT) Glucose 83 70 - 100 mg/dL [facility] Blood specimen (specimen) 08/26/2014 7:10 AM EDT [facility] - 08/26/2014 7:20 AM EDT Specimen Type: Blood Historical Provider POINT OF CARE TEST ORDERA BLES Final Result Performing Organization Address [facility]/ZIP Co de Phone Number [facility] [address] [place] [address], [place] [phone] * POCT Glucose Fingerstick (08/25/2014 9:03 PM EDT) Glucose 77 70 - 100 mg/dL [facility] Blood specimen (specimen) 08/25/2014 9:03 PM EDT [facility] - 08/25/2014 9:08 PM EDT Specimen Type: Blood Historical Provider POINT OF CARE TEST ORDERA BLES Final Result Performing Organization Address City/[facility]/ZIP Co de Phone Number [facility] [address] [place] [address], [place] [phone] * (ABNORMAL) POCT Glucose Fingerstick (08/25/2014 1:48 PM EDT) Glucose 137(H) 70 - 100 mg/dL [facility] Blood specimen (specimen) 08/25/2014 1:48 PM EDT [facility] - 08/25/2014 1:52 PM EDT Specimen Type: Blood Historical Provider POINT OF CARE TEST ORDERA BLES Final Result Performing Organization Address [facility] Co de Phone Number [facility] [address] [place] [address], * (ABNORMAL) POCT Glucose Fingerstick (08/24/2014 2:51 PM EDT) Glucose 108(H) 70 - 100 mg/dL [facility] Blood specimen (specimen) 08/24/2014 2:51 PM EDT [facility] - 08/24/2014 2:56 PM EDT Specimen Type: Blood Historical Provider POINT OF CARE TEST ORDERA BLES Final Result Performing Organization Address [facility] Co de Phone Number [facility] [address] [place] [address], * (ABNORMAL) POCT Glucose Fingerstick (08/24/2014 7:20 AM EDT) Glucose 135(H) 70 - 100 mg/dL [facility] Blood specimen (specimen) 08/24/2014 7:20 AM EDT [facility] - 08/24/2014 7:25 AM EDT Specimen Type: Blood Historical Provider POINT OF CARE TEST ORDERA BLES Final Result Performing Organization Address City/[facility] Co de Phone Number [facility] [address] [place] [address], * (ABNORMAL) POCT Glucose Fingerstick (08/23/2014 7:44 PM EDT) Glucose 111(H) 70 - 100 mg/dL [facility] Blood specimen (specimen) 08/23/2014 7:44 PM EDT [facility] - 08/23/2014 7:49 PM EDT Specimen Type: Blood Historical Provider MD POINT OF CARE TEST ORDERA BLES Final Result Performing Organization Address [facility]/ZIP Co de Phone Number [facility] [address] [place] [address], * (ABNORMAL) POCT Glucose Fingerstick (08/23/2014 2:13 PM EDT) Glucose 122(H) 70 - 100 mg/dL [facility] Blood specimen (specimen) 08/23/2014 2:13 PM EDT [facility] - 08/23/2014 2:19 PM EDT Specimen Type: Blood Historical Provider POINT OF CARE TEST ORDERA BLES Final Result Performing Organization Address [facility] de Phone Number [facility] [address] [place] [address], * (ABNORMAL) POCT Glucose Fingerstick (08/23/2014 11:56 AM EDT) Glucose 121(H) 70 - 100 mg/dL [facility] Blood specimen (specimen) 08/23/2014 11:56 AM EDT [facility] - 08/23/2014 12:21 PM EDT Specimen Type: Blood Historical Provider POINT OF CARE TEST ORDERA BLES Final Result Performing Organization Address [facility]/ZIP Co de Phone Number [facility] [address] [place] [address], * (ABNORMAL) CBC (No diff) (08/23/2014 7:44 AM EDT) WBC 8.18 3.50 - 10.80 K/[facility] RBC 3.60(L) 3.89 - 5.14 M/[facility] Hemoglobin 9.9(L) 11.5 - 15.5 g/dL [facility] Hematocrit 30.4(L) 34.5 - 44.0 % [facility] MCV 84.4 80.0 - 99.0 fL [facility] MCH 27.5 27.0 - 31.0 pg [facility] MCHC 32.6 32.0 - 36.0 g/dL [facility] RDW-CV 13.2 11.3 - 14.5 % [facility] Platelets 167 150 - 450 [facility] Blood specimen (specimen) 08/23/2014 7:44 AM EDT [facility] - 08/23/2014 8:05 AM EDT Specimen Type: Blood Historical Provider LAB BLOOD ORDERABLES Magdalena l Result Performing Organization Address [facility] de Phone Number [facility] [address] [place] [address], * POCT Glucose Fingerstick (08/23/2014 5:55 AM EDT) Glucose 72 70 - 100 mg/dL [facility] Blood specimen (specimen) 08/23/2014 5:55 AM EDT [facility] - 08/23/2014 6:00 AM EDT Specimen Type: Blood Historical Provider POINT OF CARE TEST ORDERA BLES Final Result Performing Organization Address [facility]/ZIP Co de Phone Number [facility] [address] [place] [address], * POCT Glucose Fingerstick (08/23/2014 2:28 AM EDT) Glucose 72 70 - 100 mg/dL [facility] Blood specimen (specimen) 08/23/2014 2:28 AM EDT [facility] - 08/23/2014 2:31 AM EDT Specimen Type: Blood Historical Provider POINT OF CARE TEST ORDERA BLES Final Result Performing Organization Address [facility] Co de Phone Number [facility] [address] [place] [address], * (ABNORMAL) CBC (No diff) (08/22/2014 11:26 PM EDT) WBC 11.62(H) 3.50 - 10.80 [facility] RBC 3.84(L) 3.89 - 5.14 /[facility] Hemoglobin 10.4(L) 11.5 - 15.5 g/dL [facility] Hematocrit 31.5(L) 34.5 - 44.0 % [facility] MCV 82.0 80.0 - 99.0 fL [facility] MCH 27.1 27.0 - 31.0 pg [facility] MCHC 33.0 32.0 - 36.0 g/dL [facility] RDW-CV 13.1 11.3 - 14.5 % [facility] Platelets 234 150 - 450 [facility] Blood specimen (specimen) 08/22/2014 11:26 PM EDT [facility] - 08/22/2014 11:57 PM EDT Specimen Type: Blood us Historical Provider LAB BLOOD ORDERABLES Magdalena l Result Performing Organization Address [facility] Co de Phone Number [facility] [address] [place] [address], * POCT Glucose Fingerstick (08/22/2014 9:30 PM EDT) Glucose 72 70 - 100 mg/dL [facility] Blood specimen (specimen) 08/22/2014 9:30 PM EDT [facility] - 08/22/2014 9:41 PM EDT Specimen Type: Blood Historical Provider MD POINT OF CARE TEST ORDERA BLES Final Result Performing Organization Address [facility] Co de Phone Number [facility] [address] [place] [address], [place] [phone] * (ABNORMAL) POCT Glucose Fingerstick (08/22/2014 7:06 PM EDT) Glucose 106(H) 70 - 100 mg/dL [facility] Blood specimen (specimen) 08/22/2014 7:06 PM EDT [facility] - 08/22/2014 7:10 PM EDT Specimen Type: Blood us Historical Provider MD POINT OF CARE TEST ORDERA BLES Final Result Performing Organization Address [facility] Co de Phone Number [facility] [address] [place] [address], * (ABNORMAL) Arterial Cord Gas w Dir Measured Sat (08/22/2014 4:52 PM EDT) pH, Cord Arterial 7.27 7.20 - 7.30 [facility] pCO2, Arterial 55.9(H) 43.3 - 54.9 mmHg [facility] pO2, Cord Arterial 18.2 12.1 - 19.7 mmHg [facility] Base Excess -1.5 -2.0 - 2.0 mmol/L [facility] HCO3, Cord Arterial 25.7(H) 16.9 - 20.5 mmol/L [facility] CO2 Content 27.4 mmol/L [facility] O2 Sat, Cord Arterial 31.1 % [facility] Temperature 37.0 Degrees [facility] CFIO2 21 % [facility] Arterial cord blood specimen (specimen) 08/22/2014 4:52 PM EDT [facility] - 08/22/2014 4:54 PM EDT Specimen Type: Cord Blood Arterial Sahil Smith MD LAB BLOOD ORDERABLES Final Result [facility] [address] [place] [address], * (ABNORMAL) Venous Cord Gas w Dir Measured Sat (08/22/2014 4:50 PM EDT) pH, Cord Venous 7.28 7.26 - 7.37 [facility] pCO2, Arterial 54.7(H) 32.2 - 43.4 mmHg [facility] pO2, Arterial 16.9 11.5 - 43.3 mmHg [facility] Base Excess -1.5 -2.0 - 2.0 mmol/L [facility] HCO3, Cord Venous 25.6(H) 18.6 - 21.4 mmol/L [facility] CO2 Content 27.3 mmol/L [facility] O2 Sat, Cord Venous 29.4 % [facility] Temperature 37.0 Degrees [facility] CFIO2 21 % [facility] Venous cord blood specimen (specimen) 08/22/2014 4:50 PM EDT [facility] - 08/22/2014 4:54 PM EDT Specimen Type: Cord Blood Venous Sahil Smith MD LAB BLOOD ORDERABLES Final Result [facility] [address] [place] [address], * (ABNORMAL) POCT Glucose Fingerstick (08/22/2014 3:52 PM EDT) Glucose 69(L) 70 - 100 mg/dL [facility] Blood specimen (specimen) 08/22/2014 3:52 PM EDT [facility] - 08/22/2014 4:16 PM EDT Specimen Type: Blood Historical Provider POINT OF CARE TEST ORDERA BLES Final Result Performing Organization Address [facility] Co de Phone Number [facility] [address] [place] [address], * (ABNORMAL) POCT Glucose Fingerstick (08/22/2014 2:37 PM EDT) Glucose 66(L) 70 - 100 mg/dL [facility] Blood specimen (specimen) 08/22/2014 2:37 PM EDT [facility] - 08/22/2014 2:43 PM EDT Specimen Type: Blood Historical Provider POINT OF CARE TEST ORDERA BLES Final Result Performing Organization Address [facility] de Phone Number [facility] [address] [place] [address], * Type and screen (08/22/2014 2:34 PM EDT) ABORh A Rh Positive [facility] Antibody Screen Negative [facility] Blood specimen (specimen) 08/22/2014 2:34 PM EDT [facility] - 08/22/2014 3:48 PM EDT Specimen Type: Blood Sahil Smith MD BLOOD BANK TEST ORDERABLES Final Result Performing Organization Address [facility] de Phone Number [facility] [address] [place] [address], * (ABNORMAL) CBC (No diff) (08/22/2014 2:34 PM EDT) WBC 6.50 3.50 - 10.80 [facility] RBC 4.01 3.89 - 5.14 /[facility] Hemoglobin 10.9(L) 11.5 - 15.5 g/dL [facility] Hematocrit 32.9(L) 34.5 - 44.0 % [facility] MCV 82.0 80.0 - 99.0 fL [facility] MCH 27.2 27.0 - 31.0 pg [facility] MCHC 33.1 32.0 - 36.0 g/dL [facility] RDW-CV 13.1 11.3 - 14.5 % [facility] Platelets 199 150 - 450 [facility] Blood specimen (specimen) 08/22/2014 2:34 PM EDT [facility] - 08/22/2014 2:45 PM EDT Specimen Type: Blood Sahil Smith MD LAB BLOOD ORDERABLES Final Result Performing Organization Address [facility] Co de Phone Number [facility] [address] [place] [address], * (ABNORMAL) POCT Glucose Fingerstick (08/22/2014 11:11 AM EDT) Glucose 125(H) 70 - 100 mg/dL [facility] Blood specimen (specimen) 08/22/2014 11:11 AM EDT [facility] - 08/22/2014 11:29 AM EDT Specimen Type: Blood Historical Provider MD POINT OF CARE TEST ORDERA BLES Final Result Performing Organization Address [facility] de Phone Number [facility] [address] [place] [address], [place] [phone] * (ABNORMAL) POCT Glucose Fingerstick (08/22/2014 7:45 AM EDT) Glucose 146(H) 70 - 100 mg/dL [facility] Blood specimen (specimen) 08/22/2014 7:45 AM EDT [facility] - 08/22/2014 7:56 AM EDT Specimen Type: Blood Historical Provider POINT OF CARE TEST ORDERA BLES Final Result Performing Organization Address [facility] Co de Phone Number [facility] [address] [place] [address], [place] [phone] * (ABNORMAL) POCT Glucose Fingerstick (08/22/2014 12:02 AM EDT) Glucose 173(H) 70 - 100 mg/dL [facility] Blood specimen (specimen) 08/22/2014 12:02 AM EDT [facility] - 08/22/2014 12:07 AM EDT Specimen Type: Blood Historical Provider POINT OF CARE TEST ORDERA BLES Final Result Performing Organization Address [facility] Co de Phone Number [facility] [address] [place] [address], [place] [phone] * Converted Surgical Pathology (08/21/2014 10:21 PM EDT) 08/21/2014 10:2 1 PM EDT [facility] - 08/26/2014 11:24 [place] [address] SURGICAL PATHOLOGY REPORT Patient Name: IVON MARTINEZ MR#: [id number] : 1990 Gender: F Ordering Physician: LUISA MARTINO Copy To: Nj SMITH Location: 9- Collected: 08/22/2014 Received: 08/25/2014 Reported: 08/26/2014 Clinical Diagnosis and History The working history is 36 6/7 weeks; GDM. Final Diagnosis 1. THIRD TRIMESTER PLACENTA (36 6/7 WEEKS) WITH SMALL AREA OF INFARCT. 2. RIGHT AND LEFT FALLOPIAN TUBE SEGMENTS: ? Unremarkable fallopian tube segments. [facility] [place] Amendments: Electronically Signed Out By CORNELIUS GIL Specimen(s) Received: 1: Placenta, 3rd trimester 2: Fallopian tube, sterlization Gross Description Specimen 1 received in formalin labeled placenta consists of an intact hawkins placenta with attached membranes and cord. The membranes are amaya and slightly thickened and show a marginal insertion. Site of rupture cannot be determined. The attached three vessel umbilical cord measures 30 cm in length by 2 cm in diameter and is amaya/white to blue/rollins with appropriate spiraling. No areas of torsion, hematomas, or true knots are appreciated. The cord inserts centrally, 5.5 cm from the placental disc margin. The placental disc has the overall dimensions of 18.0x17.0x4.0 cm and weighs 631 grams trimmed of membranes and cord. The surface is blue/rollins glistening and well vascularized. The maternal surface is complete with well formed cotyledons and sectioning reveals maroon parenchyma. No masses or large infarcts are appreciated. Delivery Driver sections are submitted. Summary of sections: A ??membrane roll and proximal cord; B ??midcord and peripheral disc; C ??distal cord and central disc; D-E ??random disc. Specimen 2 received in formalin labeled right and left fallopian segments consist of two amaya/pink portions of fallopian tube undesignated as to laterality. Each tube is surfaced by amaya/rollins glistening serosa and averages 1.0 cm in length by 0.8 cm in diameter. One of the tubes is inked and the specimen is submitted entirely in cassette 2. [facility] [place] Microscopic Description The membranes are free of acute inflammation. The umbilical cord contains three vessels. The villi are small to intermediate in size with moderate numbers of syncytial knots. Intervillous fibrin deposition and microcalcifications are seen. A small area of infarct is identified. A cross section of each fallopian tube is represented without abnormalities. ?? [facility] Procedures/Addenda us See Report Interface PATHOLOGY/CYTOLOGY ORDERABL ES Final Result [facility] [address] [place] [address], documented in this encounter Visit Diagnoses Not on filedocumented in this encounter
--- OUTSIDE RECORDS SUMMARY | 2024-01-11 19:04 | XMS_ITS | Encounter Summary ---
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
--- OUTSIDE RECORDS SUMMARY | 2024-01-11 19:04 | XMS_ITS | Referral Summary ---
Author Organization [facility] Address [address] [place] [address] Care Team Providers Care Streetcar Starter Name Role Phone Unavailable Primary Care Provider Unavailabl e 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 Tobacco Use Types Packs/Day Years Used Date Smoking Tobacco: Never Assessed Comments Unknown Sex and Gender Information Value Date Recorded Sex Assigned at Not on file Legal Sex Female 6:58 PM CDT Gender Identity Not on file Sexual Orientation Not on file Plan of Treatment Not on file [place] [address] [place] [id number] [facility]
--- OUTSIDE RECORDS SUMMARY | 2024-01-11 19:04 | XMS_ITS | Encounter Summary ---
[facility] Organization [facility] Address [address] [place] [phone] Care Team Providers Care Supervisor Microfilm Duplicating Unit Name Role Phone Unavailable Primary Care Provider Unavailabl e Encounter Details Date Type Department Care Team (Late st Contact Info) Description 07/05/2014 2:41 PM EDT - 07/05/2014 4:45 PM EDT Hospital Encounter [facility] [address] [place] [address] Sahil Kimball MD [address] [facility] [address] [place] [address] 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 Tobacco Use Types Packs/Day Years [...]
--- OUTSIDE RECORDS SUMMARY | 2024-01-11 19:04 | XMS_ITS | Encounter Summary ---
Author Organization [employer] Address [address] [place] [address] Care Team Providers Care Supervisor Tree Fruit And Nut Farming Name Role Phone Unavailable Primary Care Provider Unavailabl e Encounter Details Date Type Department Care Team (Late st Contact Info) Description 04/23/2020 Historic Encounter [address] [address] Provider, [facility] Historical 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 Tobacco Use Types Packs/Day [...] Date/Time Associated Diagnosis Comments GLUCOSE-POC Routine 04/23/2020 1:34 PM EST documented in this encounter Results * (ABNORMAL) Glucose, Point of Care (04/23/2020 1:34 PM EST) Glucose POC2 128(H) 70 - 110 mg/dL 04/23/2020 6:34 PM EST [facility] Nurse Administrator [phone] 04/23/2020 6:34 PM EST [facility] Device SN [id number] 04/23/2020 6:34 PM EST [facility] Device Comment1 Notified Nurse RBV 04/23/2020 6:34 PM EST [facility] Blood 04/23/2020 1:34 PM EST 04/23/2020 6:35 PM EST [facility] Historical Provider POINT OF CARE TEST ANÍBAL SIMPSON Final Result [facility] [address] [phone] documented in this encounter Visit Diagnoses Not on filedocumented in this encounter
--- OUTSIDE RECORDS SUMMARY | 2024-01-11 19:04 | XMS_ITS | Encounter Summary ---
Author Organization [employer] Address [address] [place] [address] Care Team Providers Care Jig And Fixture Repairer Name Role Phone Unavailable Primary Care Provider Unavailabl e Encounter Details Date Type Department Care Team (Late st Contact Info) Description 04/21/2020 Historic Encounter [address] [address] ProviderDarian Historical 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 Tobacco Use Types Packs/Day [...] Procedure Name Priority Date/Time Associated Diagnosis Comments CORONAVIRUS 2018 NOVEL ([facility] DATA CONV) Routine 04/21/2020 10:05 AM EST documented in this encounter Results * CORONAVIRUS 2019 NOVEL ([facility] DATA CONV) (04/21/2020 10:05 AM EST) SARS-CoV-2 ([id number]) Negative Negative 04/21/2020 8:42 PM EST [facility] Comment: Testing was performed using RT-PCR methodology approved for use under FDA Emergency Use Authorization only. Negative results do not preclude infection with the SARS-CoV-2 virus and should not be used as the sole basis of a patient treatment or public health decisions. Negative results must be considered in the context of an individual's recent exposures, history, and presence of clinical signs/symptoms. Follow-up testing should be performed according to the current CDC recommendations. Performing Lab: [facility] Max 8:42 PM [facility] Reason for Testing Surveillance Intake 04/21/2020 3:52 PM [facility] First Test No 04/21/2020 3:52 PM [facility] Employed in Healthcare Yes 04/21/2020 3:52 PM [facility] Symptomatic as defined by CDC No 04/21/2020 3:52 PM [facility] Resident in congregate setting No 04/21/2020 3:52 PM [facility] Unknown 04/21/2020 3:52 PM [facility] Hospitalized No 04/21/2020 3:52 PM [facility] ICU No 04/21/2020 3:52 PM [facility] 04/21/2020 10:0 5 AM EST 04/21/2020 3:51 PM EST us Sle Historical Provider BODY FLUIDS AND STOOLS ORDERABLES Final Result [facility] [address] [phone] documented in this encounter Visit Diagnoses Not on filedocumented in this encounter
--- OUTSIDE RECORDS SUMMARY | 2024-01-11 19:04 | XMS_ITS | Encounter Summary ---
[facility] Address [address] [place] [phone] Care Team Providers Care Electronic Controls Repairer Supervisor Name Role Phone Unavailable Primary Care Provider Unavailabl e Encounter Details Date Type Department Care Team (Late st Contact Info) Description 06/19/2014 11:23 AM EDT - 06/19/2014 11:59 PM EDT Hospital Encounter [facility] [address] [place] [address] Provider, [place] [address] 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 Tobacco Use Types Packs/Day Years [...]
--- OUTSIDE RECORDS SUMMARY | 2024-01-11 19:04 | XMS_ITS | Encounter Summary ---
Author Organization [employer] [facility] Address [address] [place] [address] Care Team Providers Care Machine Filler Servicer Name Role Phone Unavailable Primary Care Provider Unavailabl e Encounter Details Date Type Department Care Team (Late st Contact Info) Description 04/23/2020 Transcribed Document [facility] Family Medicine [facility] [place] [address] ProviderPreston MD [address] [place], [place] [id number] 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 Tobacco Use Types Packs/Day Years Used Date Smoking Tobacco: Never Assessed Comments Unknown Sex and Gender Information Value Date Recorded Sex Assigned at Not on file Legal Sex Female 6:58 PM CDT Gender Identity Not on file Sexual Orientation Not on file documented as of this encounter Miscellaneous Notes * [employer] Conversion Note - Historical ProviderMD - 04/23/2020 12:27 PM MANAGER FINANCIAL REPORTING [facility] Main OR PACU Summary Primary Physician: ZONIA PENALOZA MD-SUR Finalized Date/Time: 04/23/20 14:34:20 Pt. Name: IVON MARTINEZ/Sex: 1990 Female Med Rec #: [id number] Physician: ZONIA PENALOZA MD-SUR Financial #: [id number] Pt. Type: O Room/Bed: /1 Admit/Disch: 04/23/20 09:08:00 - Institution: [facility] Main OR PACU I Case Times Entry 1 In PACU I 04/23/20 13:17:00 Ready for PACU 04/23/20 14:05:00 Discharge Discharge from PACU 04/23/20 14:05:00 I Last Modified By: Zia Luque RN 04/23/20 14:34:12 Finalized By: Zia Luque RN Document Signatures Signed By: Zia Luque RN 04/23/20 14:34 Electronically signed by [place] [facility] Conversion Scheduling Analyst Cerner at 06/05/2022 6:54 PM CDT documented in this encounter Plan of Treatment Not on file documented as of this encounter Visit Diagnoses Not on filedocumented in this encounter
--- OUTSIDE RECORDS SUMMARY | 2024-01-11 19:04 | XMS_ITS | Encounter Summary ---
Author Organization [employer] Address [address] [place] [address] Care Team Providers Care Paint Sprayer Sandblaster Name Role Phone Unavailable Primary Care Provider Unavailabl e Encounter Details Date Type Department Care Team (Late st Contact Info) Description 04/23/[address] [facility] [place] [facility] [place] [address] ProviderPreston MD [address] [place] [phone] 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 Tobacco Use Types Packs/Day Years Used Date Smoking Tobacco: Never Assessed Comments Unknown Sex and Gender Information Value Date Recorded Sex Assigned at Not on file Legal Sex Female 6:58 PM CDT Gender Identity Not on file Sexual Orientation Not on file documented as of this encounter Miscellaneous Notes * [employer]ner Conversion Note - Historical ProviderMD - 04/23/2020 9:28 AM FIXED INCOME PORTFOLIO MANAGER Height and Weight, Clinical Dosing Entered On: 04/23/2020 9:28 EST Performed On: 04/23/2020 9:28 EST by VALERY Wynn RN Height and Weight, Clinical Dosing Height Source : Measured Height Entry Format : [place] Height, Feet : 5 ft(Converted to: 152 cm, 60 Inch) Height, Inches : 6 Inch(Converted to: 0 ft 6 Inch, 15.24 cm) Clinical Height : 167.64 cm Weight Source : Standing scale Weight Entry Format : [place] Clinical Dosing Weight : 136.18 kg Weight, Pounds : 299.6 lb Body Surface Area (BSA) : 2.38 m2 Body Mass Index : 48.5 kg/m2 (>HHI) Emily Body Weight : 59 kg VALERY Wynn RN - 04/23/2020 9:28 EST Electronically signed by [place] [facility] Conversion Lead Medical Technologist Cerner at 06/05/2022 6:45 PM CDT documented in this encounter Plan of Treatment Not on file documented as of this encounter Visit Diagnoses Not on filedocumented in this encounter
--- OUTSIDE RECORDS SUMMARY | 2024-01-11 19:04 | XMS_ITS | Encounter Summary ---
[facility] [address] [place] [address] Care Team Providers Care Punch Box Tender Name Role Phone Radha Chau DO Primary Care Provider [phone] Reason for Referral * Diagnostic Imaging (Routine) - Closed Specialty Diagnoses / Procedures Referred By Contac t Referred To Contact Radiology Diagnoses Right lower quadrant pain Procedures CT Abdomen Pelvis Without Contrast CT Abdomen Pelvis With Contrast Radha Chau DO [address] [place] [address] Phone: tel: fax: [facility] [address] [place] [address] Phone: tel: Referral ID Status Reason Start Date Expiration Date Visits Re quested Visits Authorized [id number] Closed 07/30/2018 09/15/2018 1 1 * Behavorial Health/Psych (Routine) - Closed Specialty Diagnoses / Procedures Referred By Contac t Referred To Contact Psychiatry Diagnoses Bipolar 1 disorder Anxiety and depression Radha Chau DO [address] [place] [address] Phone: tel: fax: [facility] [address] [place] [address] Phone: tel: fax: Referral ID Status Reason Start Date Expiration Date V isits Requested Visits Authorized [id number] Closed Specialty Services Required 07/30/2018 07/30/2019 1 1 * Consultation (Routine) - Closed Specialty Diagnoses / Procedures Referred By Mikayla valderrama Referred To Contact Gastroenterology Diagnoses Right lower quadrant pain Radha Chau DO [address] [place] [address] Phone: tel: fax: [facility] [address] [facility] [address] [place] [address] Phone: tel: fax: Referral ID Status Reason Start Date Expiration Date V isits Requested Visits Authorized [id number] Closed Specialty Services Required 07/30/2018 07/30/2019 1 1 Reason for Visit * Reason Comments Establish Care Fatigue hot flashes, weight gain, right lower abdominal pain into the groin/vagina - patient has seen [facility] Encounter Details Date Type Department Care Team (Late st Contact Info) Description 07/30/2018 3:15 PM EDT Office Visit [facility] [address] [facility] [place] [address] Radha Chau DO [address] [place] [address] Right lower quadrant pain (Primary Dx); Weight gain; Elevated hemoglobin A1c; Other fatigue; Bipolar 1 disorder; Anxiety and depression 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 Tobacco Use Types Packs/Day Years [...] Sign Reading Time Taken Comments Blood Pressure 128/84 07/30/2018 3:39 PM EDT Pulse 86 07/30/2018 3:39 PM EDT Temperature 36.6 ??C (97.8 ??F) 07/30/2018 3:39 PM ED T Respiratory Rate - - Oxygen Saturation - - Inhaled Oxygen Concentration - - Weight 132 kg (292 lb) 07/30/2018 3:39 PM EDT Height 167.6 cm (5' 6 ) 07/30/2018 3:39 PM EDT Body Mass Index 47.13 07/30/2018 3:39 PM EDT documented in this encounter Patient Instructions * Patient Instructions* Radha Chau, DO - 07/30/2018 3:15 PM EDT Images from the original note were not included. Go to the nearest ER or return to clinic if symptoms worsen, fever/chill develop Pelvic Pain, Female Pelvic pain is pain in your lower belly (abdomen), below your belly button and between your hips. The pain may start suddenly (acute), keep coming back (recurring), or last a long time (chronic). Pelvic pain that lasts longer than six months is considered chronic. There are many causes of pelvic pain. Sometimes the cause of your pelvic pain is not known. Follow these instructions at home: ?? Take [id number] and prescription medicines only as told by your doctor. ?? Rest as told by your doctor. ?? Do not have sex it if hurts. ?? Keep a journal of your pelvic pain. Write down: ? When the pain started. ? Where the pain is located. ? What seems to make the pain better or worse, such as food or your menstrual cycle. ? Any symptoms you have along with the pain. ?? Keep all follow-up visits as told by your doctor. This is important. Contact a doctor if: ?? Medicine does not help your pain. ?? Your pain comes back. ?? You have new symptoms. ?? You have unusual vaginal discharge or bleeding. ?? You have a fever or chills. ?? You are having a hard time pooping (constipation). ?? You have blood in your pee (urine) or poop (stool). ?? Your pee smells bad. ?? You feel weak or lightheaded. Get help right away if: ?? You have sudden pain that is very bad. ?? Your pain continues to get worse. ?? You have very bad pain and also have any of the following symptoms: ? A fever. ? Feeling stick to your stomach (nausea). ? Throwing up (vomiting). ? Being very sweaty. ?? You pass out (lose consciousness). This information is not intended to replace advice given to you by your health care provider. Make sure you discuss any questions you have with your health care provider. Document Released: 07/25/2008 Document Revised: 03/02/2016 Document Reviewed: 11/27/2015 [email or web address] Patient Education ?? 2019 [employer]. documented in this encounter Progress Notes * Radha Chau DO - 07/30/2018 3:15 PM EDT Lola Erwin is a 27 y.o. female. Chief Complaint Patient presents with ??? Establish Care ??? Fatigue hot flashes, weight gain, right lower abdominal pain into the groin/vagina - patient has seen [facility] History of Present Illness Recently saw gynecology for ongoing symptoms of pelvic pain x 6-7 months. She has pain in right lower abdomen, radiates down into groin and vagina. She states that they completed labs, urinalysis, pap smear, vaginal ultrasound, exploratory laparoscopy. Chronic history of diarrhea since age 9. Rarely does she have a normal bowel movement. Never seen GI for this issue. Unable to lose weight, has considered bariatric weight loss. History of ovarian cysts, but no diagnosis of PCOS. She did have gestational diabetes. LMP: June 2016, partial hysterectomy Also, history of depression, bipolar, anxiety, and borderline personality disorder. She has been admitted to [facility] 3 times within the last year after intentional overdose of her prescribed medications. Was following with psychiatrist, Dr. Guevara, however was dismissed due to too many no shows. Currently not suicidal. Unsure what medications improved her symptoms in the past, has been treatedwith multiple different medications. The following portions of the patient's history were reviewed and updated as appropriate: allergies, current medications, past family history, past medical history, past social history, past surgicalhistory and problem list. Review of Systems Constitutional: Positive for unexpected weight gain. Negative for chills and fever. HENT: Negative. Eyes: Negative. Respiratory: Negative for cough, chest tightness and shortness of breath. Cardiovascular: Negative for chest pain and palpitations. Gastrointestinal: Positive for abdominal pain. Negative for blood in stool, constipation, diarrhea,nausea and vomiting. Endocrine: Positive for heat intolerance. Genitourinary: Positive for pelvic pain. Negative for dysuria, frequency and urgency. Skin: Negative for rash. Neurological: Negative for light-headedness, headache and confusion. Hematological: Negative for adenopathy. Does not bruise/bleed easily. Psychiatric/Behavioral: Positive for depressed mood. The patient is nervous/anxious. Objective Physical Exam Constitutional: She is oriented to person, place, and time. She appears well- developed and well-nourished. HENT: Head: Normocephalic and atraumatic. Right Ear: External ear normal. Left Ear: External ear normal. Nose: Nose normal. Eyes: Conjunctivae are normal. Neck: Neck supple. No thyromegaly present. Cardiovascular: Normal rate, regular rhythm and normal heart sounds. No murmur heard. Pulmonary/Chest: Effort normal and breath sounds normal. She has no wheezes. Abdominal: Soft. Bowel sounds are normal. There is tenderness in the right lower quadrant. There isno rigidity and no guarding. Musculoskeletal: She exhibits no edema. Lymphadenopathy: She has no cervical adenopathy. Neurological: She is alert and oriented to person, place, and time. Skin: Skin is warm and dry. Psychiatric: She has a normal mood and affect. Her behavior is normal. Nursing note and vitals reviewed. Assessment/Plan Ivon was seen today for establish care and fatigue. Diagnoses and all orders for this visit: Right lower quadrant pain - CBC & Differential - Comprehensive Metabolic Panel - TSH Rfx On Abnormal To Free T4 - Ambulatory Referral to Gastroenterology - CT Abdomen Pelvis With Contrast Weight gain - CBC & Differential - Comprehensive Metabolic Panel - TSH Rfx On Abnormal To Free T4 - Cortisol - Insulin, Total Elevated hemoglobin A1c - CBC & Differential - Comprehensive Metabolic Panel - Hemoglobin A1c - Cortisol - Insulin, Total Other fatigue - Cortisol - Insulin, Total - Vitamin B12 Bipolar 1 disorder (CMS/HCC) - Ambulatory Referral to Psychiatry Anxiety and depression - Ambulatory Referral to Psychiatry Labs completed today to evaluate current symptoms. She hasn't completed CT abdomen/pelvis, will order. Referred to GI for additional evaluation of chronic abdominal pain. Recommended that she establish with psychiatry for treatment of anxiety, depression, bipolar, and personality disorder. She agrees to establish care. documented in this encounter Plan of Treatment Scheduled Referrals Name Type Priority Associated Diagnoses Order Schedule Ambulatory Referral to Gastroenterology Outpatient Referral Routine Right lower quadrant pain Ordered: 07/30/2018 Ambulatory Referral to Psychiatry Outpatient Referral Routine Bipolar 1 disorder Anxiety and depression Ordered: 07/30/2018 documented as of this encounter Procedures Procedure Name Priority Date/Time Associated Diagnosis Comments CT ABDOMEN PELVIS WO CONTRAST Routine 08/03/2018 4:14 PM EDT Right lower quadrant pain TSH RFX ON ABNORMAL TO FREE T4 Routine 07/30/2018 4:13 PM EDT Right lower quadrant pain Weight gain INSULIN, TOTAL Routine 07/30/2018 4:13 PM EDT Weight gain Elevated hemoglobin A1c Other fatigue CBC AND DIFFERENTIAL Routine 07/30/2018 4:13 PM EDT Right lower quadrant pain Weight gain Elevated hemoglobin A1c HEMOGLOBIN A1C Routine 07/30/2018 4:13 PM EDT Elevated hemoglobin A1c VITAMIN B12 Routine 07/30/2018 4:13 PM EDT Other fatigue CORTISOL Routine 07/30/2018 4:13 PM EDT Weight gain Elevated hemoglobin A1c Other fatigue COMPREHENSIVE METABOLIC PANEL Routine 07/30/2018 4:13 PM EDT Right lower quadrant pain Weight gain Elevated hemoglobin A1c documented in this encounter Results * CT Abdomen Pelvis Without Contrast (08/03/2018 4:14 PM EDT) Anatomical Region Laterality Modality Abdomen, Pelvis N/A Computed Tomogra phy 08/03/2018 4:59 PM EDT Impressions 08/07/2018 11:48 AM EDT No intra-abdominal or intrapelvic abnormality. Appendix is visualized in the right lower quadrant without acute inflammatory findings. Status post hysterectomy without abnormality of the vaginal cuff or loculated fluid collection in the pelvis. DICTATED: ?? 08/03/2018 EDITED/ls : ?? 08/03/2018 This report was finalized on 08/07/2018 11:[address] Bartolo Medina. Narrative 08/07/2018 11:48 AM EDT EXAMINATION: CT ABDOMEN/PELVIS WO CONTRAST - 08/03/2018 INDICATION: ??R10.31-Right lower quadrant pain. TECHNIQUE: CT abdomen and pelvis without intravenous contrast. The radiation dose reduction device was turned on for each scan per the ALARA (As Low as Reasonably Achievable) protocol. COMPARISON: CT dated 07/18/2016. FINDINGS: Lung bases are grossly clear. Liver without focal lesion. Gallbladder surgically absent. No biliary dilatation. Pancreas and spleen unremarkable with splenule at the splenic hilum. Adrenals without distinct nodule. Kidneys without hydronephrosis or hydroureter. No bulky retroperitoneal adenopathy. Nonaneurysmal abdominal aorta. GI tract evaluation without focal thickening or disproportionate dilatation of bowel. Appendix is visualized and unremarkable. No free fluid or intra-abdominal free air. Pelvic viscera grossly unremarkable without bulky pelvic adenopathy or free fluid. No aggressive osseous or soft tissue body wall findings. Procedure Note Bartolo Medina, DO - 08/07/2018 EXAMINATION: CT ABDOMEN/PELVIS WO CONTRAST - 08/03/2018 INDICATION: R10.31-Right lower quadrant pain. TECHNIQUE: CT abdomen and pelvis without intravenous contrast. The radiation dose reduction device was turned on for each scan per the ALARA (As Low as Reasonably Achievable) protocol. COMPARISON: CT dated 07/18/2016. FINDINGS: Lung bases are grossly clear. Liver without focal lesion. Gallbladder surgically absent. No biliary dilatation. Pancreas and spleen unremarkable with splenule at the splenic hilum. Adrenals without distinct nodule. Kidneys without hydronephrosis or hydroureter. No bulky retroperitoneal adenopathy. Nonaneurysmal abdominal aorta. GI tract evaluation without focal thickening or disproportionate dilatation of bowel. Appendix is visualized and unremarkable. No free fluid or intra-abdominal free air. Pelvic viscera grossly unremarkable without bulky pelvic adenopathy or free fluid. No aggressive osseous or soft tissue body wall findings. IMPRESSION: No intra-abdominal or intrapelvic abnormality. Appendix is visualized in the right lower quadrant without acute inflammatory findings. Status post hysterectomy without abnormality of the vaginal cuff or loculated fluid collection in the pelvis. DICTATED: 08/03/2018 EDITED/ls : 08/03/2018 This report was finalized on 08/07/2018 11:[address] Bartolo Medina. Radha Chau DO IMG CT ORDERABLES Final Res ult * Vitamin B12 (07/30/2018 4:13 PM EDT) Pathologist [facility] Vitamin B-12 328 211 - 946 pg/mL [facility] Blood 07/30/2018 4:13 PM EDT 07/30/2018 Narrative [facility] (AMBULATORY) - 07/31/2018 4:07 PM EDT Performed at: ??01 - [address] ??[id number] Licensed Land Surveyor: Calixto Renner MD, Phone: ??[phone] Patient Fasting: ??N Radha Chau DO LAB BLOOD ORDERABLES Final Result [facility] [address] [place] [address], [facility] [address] [place] [address], [place] [phone] * (ABNORMAL) Insulin, Total (07/30/2018 4:13 PM EDT) Pathologist [facility] Insulin 44.9(H) 2.6 - 24.9 uIU/mL [facility] Blood 07/30/2018 4:13 PM EDT 07/30/2018 Narrative [facility] (AMBULATORY) - 07/31/2018 4:07 PM EDT Performed at: ??02 - [address] ??[id number] Licensed Land Surveyor: Navjot Sanches PhD, Phone: ??[phone] Patient Fasting: ??N Radha Chau DO LAB BLOOD ORDERABLES Final Result Performing Organization Address [facility] de Phone Number [facility] [address] [place] [address], [facility] [address] [place] [address], * Cortisol (07/30/2018 4:13 PM EDT) Cortisol 3.6 ug/dL [facility] Comment: ?Cortisol AM ? 6.2 - 19.4 ?Cortisol PM ? 2.3 - 11.9 Blood 07/30/2018 4:13 PM EDT 07/30/2018 N[facility]ative [facility] - 07/31/2018 4:07 PM EDT Performed at: ??02 - [facility] ??[id number] Licensed Land Surveyor: Navjot Sanches PhD, Phone: ??[phone] Patient Fasting: ??N Radha Chau DO LAB BLOOD ORDERABLES Final Result Performing Organization Address [facility] Co de Phone Number [facility] (AMBULATORY) [address] [place] [address], [facility] [address] [place] [address], * (ABNORMAL) Hemoglobin A1c (07/30/2018 4:13 PM EDT) Hemoglobin A1C 5.80(H) 4.80 - 5.60 % [facility] Comment: Hemoglobin A1C Ranges: Increased Risk for Diabetes ??5.7% to 6.4% Diabetes ? >= 6.5% Diabetic Goal ?< 7.0% Blood 07/30/2018 4:13 PM EDT 07/30/2018 Narrative [facility] ([facility]) - 07/31/2018 4:07 PM EDT Performed at: ??01 - [facility] [address] [place], [place] ??[id number] Licensed Land Surveyor: Calixto Renner MD, Phone: ??[phone] Patient Fasting: ??N [facility] Isac DO LAB BLOOD ORDERABLES Final Result Performing Organization Address [facility] Co de Phone Number [facility] (AMBULATORY) [address] [place] [address], [facility] [address] [place] [address], [place] [phone] * TSH Rfx On Abnormal To Free T4 (07/30/2018 4:13 PM EDT) Pathologist [facility] TSH 1.420 0.270 - 4.200 mIU/mL [facility] Blood 07/30/2018 4:13 PM EDT 07/30/2018 Narrative [facility] ([facility]) - 07/31/2018 4:07 PM EDT Performed at: ??01 - [facility] [address] [place], [place] ??[id number] Licensed Land Surveyor: Calixto Renner MD, Phone: ??[phone] Patient Fasting: ??N [facility] Ol[facility] Chau DO LAB BLOOD ORDERABLES Final Result Performing Organization Address [facility] Co de Phone Number [facility] (AMBULATORY) [address] [place] [address], [facility] [address] [place] [address], [place] [phone] * (ABNORMAL) Comprehensive Metabolic Panel (07/30/2018 4:13 PM EDT) Glucose 112(H) 65 - 99 mg/dL [facility] BUN 8 6 - 20 mg/dL [facility] Creatinine 0.68 0.57 - 1.00 mg/dL [facility] eGFR Non Am 102 >60 mL/min/1.7 3 [facility] eGFR Am 124 >60 mL/min/1.7 3 [facility] BUN/Creatinine Ratio 11.8 7.0 - 25.0 [facility] Sodium 138 136 - 145 mmol/L [facility] Potassium 3.8 3.5 - 5.2 mmol/L [facility] Chloride 101 98 - 107 mmol/L [facility] Total CO2 24.5 22.0 - 29.0 mmol/L [facility] Calcium 9.5 8.6 - 10.5 mg/dL [facility] Total Protein 7.1 6.0 - 8.5 g/dL [facility] Albumin 4.40 3.50 - 5.20 g/dL [facility] Globulin 2.7 gm/dL [facility] A/G Ratio 1.6 g/dL [facility] Total Bilirubin 0.3 0.2 - 1.2 mg/dL [facility] Alkaline Phosphatase 77 39 - 117 U/L [facility] AST (SGOT) 13 1 - 32 U/L [facility] ALT (SGPT) 15 1 - 33 U/L [facility] Blood 07/30/2018 4:13 PM EDT 07/30/2018 Narrative [facility] ([facility]) - 07/31/2018 4:07 PM EDT Performed at: ?? [address] ??[id number] Licensed Land Surveyor: Calixto Renner MD, Phone: ??[phone] Patient Fasting: ??N us Radha Chau DO LAB BLOOD ORDERABLES Final Result [facility] ([facility]) [address] [place] [address], [facility] [address] [place] [address], * CBC & Differential (07/30/2018 4:13 PM EDT) WBC 7.56 3.40 - 10.80 10*3/mm3 [facility] RBC 4.47 3.77 - 5.28 10*6/mm3 [facility] Hemoglobin 12.9 12.0 - 15.9 g/dL [facility] Hematocrit 40.0 34.0 - 46.6 % [facility] MCV 89.5 79.0 - 97.0 fL [facility] MCH 28.9 26.6 - 33.0 pg [facility] MCHC 32.3 31.5 - 35.7 g/dL [facility] RDW 12.4 12.3 - 15.4 % [facility] Platelets 287 140 - 450 10*3/mm3 [facility] Neutrophil Rel % 63.4 42.7 - 76.0 % [facility] Lymphocyte Rel % 27.4 19.6 - 45.3 % [facility] Monocyte Rel % 5.4 5.0 - 12.0 % [facility] Eosinophil Rel % 3.0 0.3 - 6.2 % [facility] Basophil Rel % 0.5 0.0 - 1.5 % [facility] Neutrophils Absolute 4.79 1.70 - 7.00 10*3/mm3 [facility] Lymphocytes Absolute 2.07 0.70 - 3.10 10*3/mm3 [facility] Monocytes Absolute 0.41 0.10 - 0.90 10*3/mm3 [facility] Eosinophils Absolute 0.23 0.00 - 0.40 10*3/mm3 [facility] Basophils Absolute 0.04 0.00 - 0.20 10*3/mm3 [facility] Immature Granulocyte Rel % 0.3 0.0 - 0.5 % [facility] Immature Grans Absolute 0.02 0.00 - 0.05 10*3/mm3 [facility] nRBC 0.0 0.0 - 0.2 /100 WBC [facility] Blood 07/30/2018 4:13 PM EDT 07/30/2018 Narrative [facility] ([facility]) - 07/31/2018 4:07 PM EDT Performed at: ??[address] [place] [address] ??[id number] Licensed Land Surveyor: Calixto Renner MD, Phone: ??[phone] Patient Fasting: ??N us Radha Chau DO LAB BLOOD ORDERABLES Final Result [facility] ([facility]) [address] [place] [address], [place] [phone] [facility] [address] [place] [address], [place] [phone] documented in this encounter Visit Diagnoses Diagnosis Right lower quadrant pain- Primary Weight gain Other symptoms concerning nutrition, metabolism, and development Elevated hemoglobin A1c Other abnormal blood chemistry Other fatigue Bipolar 1 disorder Anxiety and depression documented in this encounter Care Teams Punch Box Tender Relationship Specialty Start Date End Date [place] [address] PCP - General Family Medicine 07/30/18 02/02/20 documented as of this encounter
--- OUTSIDE RECORDS SUMMARY | 2024-01-11 19:04 | XMS_ITS | Encounter Summary ---
Author Organization [employer] Address [address] [place] [address] Care Team Providers Care [employer] Social Science Teacher Name Role Phone Unavailable Primary Care Provider Unavailabl e Encounter Details Date Type Department Care Team (Late st Contact Info) Description 04/23/2020 Transcribed Document [facility] [place] Family Medicine [address] [place] [address] Preston Hinds MD [address] [place] [address] 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 Tobacco Use Types Packs/Day Years Used Date Smoking Tobacco: Never Assessed Comments Unknown Sex and Gender Information Value Date Recorded Sex Assigned at Not on file Legal Sex Female 6:58 PM CDT Gender Identity Not on file Sexual Orientation Not on file documented as of this encounter Miscellaneous Notes * Cerner Conversion Note - Historical ProviderMD - 04/23/2020 2:49 PM 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 Avoid high fat/greasy foods. Do not drink any alcoholic beverages, Drink at least 8-10 glasses of water per day Activity after Discharge: As tolerated, Rest and relax today, No strenuous activity for 3 weeks. walk 3-5x/day. Lifting Restrictions: no lifting heavier than 10lbs for 3 weeks. Driving after Discharge: Do not drive until 24 hours after no longer taking pain medications May Return to Work/School: when off of pain medication. Showering/Bathing: May shower in 24 hours. No tub bathing, soaking or swimming. do not let water directly hit incisions. do not scrub. pat dry. Notify Provider of: excessive bleeding, swelling, pain, inability to urinate or have a bowel movement. also notify of pus-like drainage or fever. Wound/Incision Care after Discharge: Keep operative site/wound site clean and dry. no lotions, powders, or ointments to incisions Medical Equipment for Home Use: splint pillow for coughing and sneezing. ice pack 20 min every hour as needed for 2 days. Pain medication: take with food and use stool softeners 2-3x/day to prevent constipation Follow-Up Appointments Follow Up with ZONIA PENALOZA MD-JILLIAN When Within 2 to 3 days Comments Follow-up appointment May 06 at 3:15 pm Where: [address] [facility] [address] [place] [phone]- Medications What How Much When Instructions Next Dose acetaminophen-hydrocodone (acetaminophen-HYDROcodone 325 mg-5 mg oral tablet) 1-2 tabs Oral Every 6 Hours as needed for for pain Pickup at [facility] 493 ondansetron (Zofran 4 mg oral tablet) 1 Tablet(s) Oral Every 8 Hours as needed for Nausea Pickup at [facility] 493 budesonide (budesonide 0.25 mg/ 2 mL inhalation suspension) See instructions 4 ml orally BID cariprazine (Vraylar 3 mg oral capsule) 1 Capsule(s) Oral Every Day escitalopram (Lexapro 20 mg oral tablet) 1 Tablet(s) Oral Every Day metFORMIN (metFORMIN 500 mg oral tablet) 1 Tablet(s) Oral Every Day promethazine (Phenergan) 25 Milligram(s) Oral Every 6 Hours as needed for as needed for nausea/vomiting Pharmacy Information [facility] 493: [address] [place], [place] [id number] [phone] Take your medications faithfully. Do NOT skip medication. Do NOT stop taking medications without the direction of a physician. Carry a list of your medications with you at all times, and take this medication list with you to your first follow up visit. Report any side effects. Avoid herbal remedies unless discussed with your physician. As part of your treatment plan, your physician may have prescribed a limited course of a controlled substance. This medication may be given to help people with moderate or severe pain or for other medical conditions, but there are risks involved with treatment. Common side effects may include nausea, constipation, drowsiness, sweating, itching, dry mouth, and rash. More serious side effects may include cognitive and motor impairment, like problems with thinking, concentrating, alertness, and movement (e.g. slowed reflexes), and driving and operating heavy machinery can be dangerous. It is important for you to talk to your physician if you have these side effects or questions. These controlled substances can produce physical dependence and be habit-forming if taken for an extended period of time, which means that the body has gotten used to them and may experience withdrawal symptoms if they are abruptly stopped. Withdrawal symptoms can include runny nose, sweating, goose bumps, diarrhea, abdominal cramping, rapid heartbeat, difficulty sleeping, and nervousness. Please dispose of unused and medications per pharmacy guidance. Education Materials General Anesthesia, Adult, Care After This sheet [...] activities are safe for you. ??? Take ksih-wup-mmowomy and prescription medicines only as told by [...] 05/15/2001 Document Revised: 02/09/2018 Document Reviewed: 09/22/2017 Elsevier Patient Education ?? 2020 [employer]. Emergency Awareness and Preventative Care STROKE is an EMERGENCY Every Minute Counts Act FAST and Check for these signs: FACE Does the face look uneven? ARM Does one arm drift down? SPEECH Does their speech sound strange? TIME Call at any sign of stroke Stroke Risk Factors Atrial Fibrillation (irregular heartbeat) Diabetes Family history of stroke Heart Disease Heavy alcohol use High Blood Pressure High Cholesterol Physical inactivity and obesity Smoking Cigarette Smoking The facts are clear, cigarette smoking will shorten your life. Smoking can cause many illnesses along the way. As a healthcare provider, we recommend that you stop smoking. Assistance with quitting is available by contacting 5-752-UVRCNOW. This is a free resource providing counseling, support, and referral. Or you may contact your personal physician. National Suicide Prevention Lifeline: The National Suicide Prevention Lifeline is a national network of local crisis centers that provides free and confidential emotional support to people in suicidal crisis or emotional distress 24 hours a day, 7 days a week. Don't Wait! Stop a Heart Attack Before it Starts What is a heart attack? A heart attack is damage or to a part of the heart from severely decreased or lack of blood flow to the heart. Over time, arteries can become narrow from the buildup of fat and cholesterol, which is called plaque. The plaque can rupture causing a blood clot to form. When the blood clot forms, the artery can become severely narrowed or completely blocked, causing a heart attack. Heart attack is the leading cause of in the [place]. 85% of muscle damage occurs within the first 2 hours. Delay in the recognition of heart attack symptoms increases the chances of . Know the early symptoms of a heart attack: Nausea Feeling of fullness in chest Jaw Pain Pain that travels down one or both arms Fatigue/being tired Anxiety Back Pain Chest pressure, squeezing, or discomfort Shortness of breath Sweating, or a cold sweat Feeling of impending doom There are unusual signs of a heart attack, too! Women, the elderly, and diabetics may present with atypical symptoms: Fainting/dizziness Weakness Confusion Risk Factors for a Heart Attack Some heart disease risk factors, such as age and family history, cannot be changed. Others, like smoking and lack of exercise, can be changed. Smoking High Cholesterol High Blood Pressure Family History Obesity Age Gender (Males are at higher risk) Lack of Exercise Diabetes Diet Stress Excessive Alcohol Intake If you or someone you know is experiencing the signs and symptoms of a heart attack, DON???T DELAY. Call immediately and seek help. If someone collapses, perform CPR! Do not attempt to drive if you are having symptoms of heart attack. Hands-Only CPR Why Hands-Only CPR? Hands-Only CPR has been shown to be as effective as conventional CPR for cardiac arrests that occur outside of a hospital. Survival depends on immediately receiving CPR from someone nearby. How do you perform Hands-Only CPR? There are two easy steps: Call if you see a teen or adult collapse Push hard and fast in the center of the chest at a beat of 100 beats per minute. Save a life! 4 WAYS TO GET AHEAD OF SEPSIS SEPSIS is a MEDICAL EMERGENCY. Time matters! Infections put you and your family at risk for a life-threatening condition called sepsis. Sepsis is the body's extreme response to an infection. It is life-threatening, and without timely treatment, sepsis can rapidly lead to tissue damage, organ failure, and . Sepsis happens when an infection you already have-in your skin, lungs, urinary tract or somewhere else-triggers a chain reaction throughout your body. 1 PREVENT INFECTIONS Take good care of chronic conditions. Talk to your doctor about getting the recommended vaccines. 2 PRACTICE GOOD HYGIENE Wash your hands frequently. Keep cuts or open sores clean and covered until they are healed. 3 KNOW THE SYMPTOMS Confusion or disorientation Shortness of breath High heart rate Fever, shivering, or feeling very cold Extreme pain or discomfort Clammy or sweaty skin 4 ACT FAST Get medical care IMMEDIATELY if you suspect sepsis or if you have an infection that is not getting better or is getting worse. To learn more about sepsis and how to prevent infections, visit www.cdc.gov/sepsis. Test Results Laboratory or Other Results This Visit (last charted value for your 04/23/2020 visit) Microbiology 04/21/2020 10:05 AM SARS-CoV-2 (COVID19 PCR): Negative General Chemistry 04/23/2020 1:34 PM Glucose POC2: 128 mg/dL -- Normal range between ( 70 and 110 ) Device Comment 1: Device Comment 1 Patient Name:IVON MARTINEZ I have received this information and was given the opportunity to ask questions. Patient/Vp Of Technology Name: Patient/Vp Of Technology Signature: Relationship to Patient: Clinician/Hospital Vp Of Technology Signature: Date: documented in this encounter Plan of Treatment Not on file documented as of this encounter Visit Diagnoses Not on filedocumented in this encounter
--- OUTSIDE RECORDS SUMMARY | 2024-01-11 19:04 | XMS_ITS | Encounter Summary ---
Author Organization [facility] Address [address] [place] [address] Care Team Providers Care Hand Compositor Name Role Phone Unavailable Primary Care Provider Unavailabl e Encounter Details Date Type Department Care Team (Late st Contact Info) Description 07/18/2014 7:28 PM EDT - 07/19/2014 12:41 AM EDT Hospital Encounter [facility] DEPARTMENT [address] [phone] Sahil Kimball MD [address] [facility] [address] [place] [address] 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 Tobacco Use Types Packs/Day Years [...] Name Priority Date/Time Associated Diagnosis Comments CBC (NO DIFF) Routine 07/18/2014 9:57 PM EDT PRE-ECLAMPSIA PANEL Routine 07/18/2014 9 :18 PM EDT URINALYSIS, MICROSCOPIC ONLY Routine 07/18/2014 8:35 PM EDT URINALYSIS WITHOUT MICROSCOPIC (NO CULTURE) Routine 07/18/2014 8:35 PM EDT POCT GLUCOSE FINGERSTICK Routine 07/18/2014 8:25 PM EDT documented in this encounter Results * (ABNORMAL) CBC (No diff) (07/18/2014 9:57 PM EDT) WBC 6.54 3.50 - 10.80 [facility] RBC 3.67(L) 3.89 - 5.14 M[facility] Hemoglobin 10.4(L) 11.5 - 15.5 g/dL [facility] Hematocrit 30.8(L) 34.5 - 44.0 % [facility] MCV 83.9 80.0 - 99.0 fL [facility] MCH 28.3 27.0 - 31.0 pg [facility] MCHC 33.8 32.0 - 36.0 g/dL [facility] RDW-CV 12.7 11.3 - 14.5 % [facility] Platelets 219 150 - 450 [facility] Blood specimen (specimen) 07/18/2014 9:57 PM EDT Narrative [facility] - 07/18/2014 10:10 PM EDT Specimen Type: Blood Bacilio Espinoza MD LAB BLOOD ORDERABLES Final Resu lt [facility] [place] [address], * (ABNORMAL) Pre-Eclampsia Panel (07/18/2014 9:18 PM EDT) Creatinine 0.4(L) 0.6 - 1.3 mg/dL [facility] Uric Acid 2.8(L) 3.1 - 7.8 mg/dL [facility] Alkaline Phosphatase 108(H) 25 - 100 Units/L [facility] AST (SGOT) 20 0 - 33 Units/L [facility] LDH 188 120 - 246 Units/L [facility] ALT (SGPT) 20 7 - 40 Units/L [facility] Total Bilirubin 0.2(L) 0.3 - 1.2 mg/dL [facility] Blood specimen (specimen) 07/18/2014 9:18 PM EDT [facility] - 07/18/2014 10:46 PM EDT Specimen Type: Blood Bacilio Espinoza MD LAB BLOOD ORDERABLES Final Resu lt Performing Organization Address [facility] [place] [address], * (ABNORMAL) Urinalysis, Microscopic only (07/18/2014 8:35 PM EDT) WBC, UA Too numerous to count(A) NONE SEEN,0-2 /hpf [facility] RBC, UA 31-50(A) NONE SEEN,0-2 /hpf [facility] Epithelial Cells, UA 3-6(A) NONE SEEN,0-2 /hpf [facility] Bacteria, UA 4+(A) NONE SEEN /hpf [facility] Crystals, UA Small/1+ Calcium Oxalate(A) NONE SEEN [facility] Urine specimen (specimen) Urine specimen obtained by clean catch procedure / Unknown 07/18/2014 8:35 PM EDT [facility] - 07/18/2014 9:08 PM EDT Specimen Type: Urine Specimen Source: Clean Catch Sahil Kimball MD URINE ORDERABLES Final Res ult Performing Organization Address [facility] [place] [address], [place] [phone] * (ABNORMAL) Urinalysis Without Microscopic (07/18/2014 8:35 PM EDT) Color, UA Yellow [facility] Appearance, UA Cloudy [facility] pH, UA 5.5 4.5 - 8.0 [facility] Specific Leroy, UA 1.031(H) 1.001 - 1.030 [facility] Glucose, UA >=1000(A) NEGATIVE mg/dL [facility] Ketones, UA Negative NEGATIVE [facility] Bilirubin, UA Negative NEGATIVE [facility] Blood, UA Negative NEGATIVE [facility] Protein, UA Negative NEGATIVE mg/dL [facility] Comment: DF by IF @ 07/18/2014 20:51 This test was previously referred to as Albumin Nitrite, UA Negative NEGATIVE [facility] Leukocytes, UA Small(A) NEGATIVE [facility] Urobilinogen, UA 0.2 0.2 - 1.0 mg/dL [facility] Urine specimen (specimen) Urine specimen obtained by clean catch procedure / Unknown 07/18/2014 8:35 PM EDT [facility] - 07/18/2014 8:51 PM EDT Specimen Type: Urine Specimen Source: Clean Catch Sahil Kimball MD URINE ORDERABLES Final Res ult Performing Organization Address City/[facility]/[place] [address], * (ABNORMAL) POCT Glucose Fingerstick (07/18/2014 8:25 PM EDT) Glucose 144(H) 70 - 100 mg/dL [facility] Blood specimen (specimen) 07/18/2014 8:25 PM EDT [facility] - 07/18/2014 8:50 PM EDT Specimen Type: Blood Preston Provider POINT OF CARE TEST ORDERA BLES Final Result Performing Organization Address [facility]/[place]IP [place] [address], documented in this encounter Visit Diagnoses Not on filedocumented in this encounter
--- OUTSIDE RECORDS SUMMARY | 2024-01-11 19:04 | XMS_ITS | Encounter Summary ---
Author Organization [employer] Address [address] [place] [address] Care Team Providers Care Business Systems Architect Name Role Phone Unavailable Primary Care Provider Unavailabl e Encounter Details Date Type Department Care Team (Late st Contact Info) Description 04/23/2020 Transcribed Document [facility] [place] [facility] [place] [address] ProviderPreston MD [address] [place] [phone] 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 Tobacco Use Types Packs/Day Years Used Date Smoking Tobacco: Never Assessed Comments Unknown Sex and Gender Information Value Date Recorded Sex Assigned at Not on file Legal Sex Female 6:58 PM CDT Gender Identity Not on file Sexual Orientation Not on file documented as of this encounter Miscellaneous Notes * Cerner Conversion Note - Historical ProviderMD - 04/23/2020 9:31 AM 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 Patient: IVON MARTINEZ Age: 29 years Sex: Female : 1990 Associated Diagnoses: None Author: GINA JAIME APRN Chief Complaint umbilical hernia Review of Systems ROS reviewed as documented in chart no change since last seen by surgeon Health Status Allergies: Allergic Reactions (Selected) Severity Not Documented Amoxicillin- Swelling and hives., Allergies (1) Active Reaction amoxicillin Swelling Current medications: (Selected) Inpatient Medications Ordered Cleocin HCl: 900 mg, IV Piggyback, PREOP Lactated Ringers Injection intravenous solution 1,000 mL: 20 mL/Hr, IntraVENous Sodium Chloride 0.9% intravenous solution 1,000 mL: 100 mL/Hr, IntraVENous famotidine: 20 mg, Oral, 1-Time lidocaine 1% preservative-free injectable solution: 0.5 mL, IntraDermal, 1-Time Documented Medications Documented Lexapro 20 mg oral tablet: 1 Tab, Oral, Daily, 0 Refill(s) Phenergan: 25 mg, Oral, Q6H, PRN: as needed for nausea/vomiting, 0 Refill(s) Vraylar 3 mg oral capsule: 1 Cap, Oral, Daily, 0 Refill(s) budesonide 0.25 mg/2 mL inhalation suspension: See Instructions, 4 ml orally BID, 0 Refill(s) metFORMIN 500 mg oral tablet: 1 Tab, Oral, Daily, 0 Refill(s), Home Medications (5) Active budesonide 0.25 mg/2 mL inhalation suspension See Instructions Lexapro 20 mg oral tablet 20 mg = 1 Tab, Oral, Daily metFORMIN 500 mg oral tablet 500 mg = 1 Tab, Oral, Daily Phenergan 25 mg, PRN, Oral, Q6H Vraylar 3 mg oral capsule 3 mg = 1 Cap, Oral, Daily , Medications (5) Active Scheduled: (3) clindamycin 900 mg, IV Piggyback, PREOP famotidine 20 mg tab 20 mg 1 Tab, Oral, 1-Time lidocaine 1% *PF* inj 30 mL 0.5 mL, IntraDermal, 1-Time Continuous: (2) lactated ringers 1,000 mL 1,000 mL, IntraVENous, 20 mL/Hr NaCl 0.9% 1,000 mL 1,000 mL, IntraVENous, 100 mL/Hr PRN: (0) Problem list: All Problems Umbilical hernia / SNOMED CT 3283228856 / Confirmed Esophageal hernia / SNOMED CT 595704542 / Confirmed GERD (gastroesophageal reflux disease) / SNOMED CT 658990873 / Confirmed Depression / SNOMED CT 56045938 / Confirmed At risk for sleep apnea / IMO [id number] / Confirmed Appendicitis / SNOMED CT 074603391 / Confirmed Anxiety / SNOMED CT 34557616 / Confirmed, Active Problems (7) Anxiety Appendicitis At risk for sleep apnea Depression Esophageal hernia GERD (gastroesophageal reflux disease) Umbilical hernia Histories Past Medical History: No active or resolved past medical history items have been selected or recorded. Family History: No family history items have been selected or recorded. Procedure history: section (68834436). Cholecystectomy (44861662). D&C - Dilatation and curettage (2665682048). Tubal ligation (208924603). Tonsillectomy (531105468). hysterectomy. right oophorectomy. Appendectomy (460617831). Physical Examination VS/Measurements No qualifying data available, Measurements from flowsheet : Measurements 04/23/2020 9:28 EST Height Source Measured Height Entry Format [place] Height/Length, [place] (ft) 5 ft Height/Length [place] 6 Inch CLINICALHEIGHT 167.64 cm [place] Body Weight 59 kg Weight Source Standing scale Weight Entry Format [place] Weight Maltese lb 299.6 lb CLINICALWEIGHT 136.18 kg Body Surface Area (BSA) 2.38 m2 Body Mass Index 48.5 kg/m2 >HHI General: Alert and oriented, No acute distress, morbid obesity. Eye: Pupils are equal, round and reactive to light, Extraocular movements are intact. HENT: Normocephalic, Normal hearing. Neck: Supple, Non-tender. Respiratory: Lungs are clear to auscultation, Respirations are non-labored. Cardiovascular: Normal rate, Regular rhythm, No murmur, No gallop, No edema. Gastrointestinal: Soft, umbilical hernia tenderness on palpation . Genitourinary: No costovertebral angle tenderness. Lymphatics: No lymphadenopathy neck, axilla, groin. Musculoskeletal: Normal range of motion, Normal strength. Integumentary: Warm, Dry, [place]. Neurologic: Alert, Oriented. Psychiatric: Cooperative, Appropriate mood & affect. Review / Management Results review: No qualifying data available. Impression and Plan Condition: Stable. Electronically signed by Napoleon Peter Conversion Senior Human Resources Representative Cerner at 06/05/2022 6:48 PM CDT documented in this encounter Plan of Treatment Not on file documented as of this encounter Visit Diagnoses Not on filedocumented in this encounter
--- OUTSIDE RECORDS SUMMARY | 2024-01-11 19:04 | XMS_ITS | Encounter Summary ---
[facility] Address [address] [place] [address] Care Team Providers Care Loan Servicing Specialist Name Role Phone Unavailable Primary Care Provider Unavailabl e Encounter Details Date Type Department Care Team (Late st Contact Info) Description 08/16/2014 2:20 PM EDT - 08/16/2014 8:30 PM EDT Hospital Encounter [facility] DEPARTMENT [address] [phone] Sahil Kimball MD [address] [facility] [address] [place] [address] 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 Tobacco Use Types Packs/Day Years [...] Associated Diagnosis Comments POCT GLUCOSE FINGERSTICK Routine 08/16/2014 8:02 PM EDT PRE-ECLAMPSIA PANEL Routine 08/16/2014 4 :36 PM EDT CBC (NO DIFF) Routine 08/16/2014 4:36 PM EDT HEMOGLOBIN A1C Routine 08/16/2014 4:36 PM EDT documented in this encounter Results * (ABNORMAL) POCT Glucose Fingerstick (08/16/2014 8:02 PM EDT) Glucose 121(H) 70 - 100 mg/dL [facility] Blood specimen (specimen) 08/16/2014 8:02 PM EDT [facility] - 08/16/2014 8:06 PM EDT Specimen Type: Blood Preston Hinds MD POINT OF CARE TEST ORDERA BLES Final Result Performing Organization Address [facility] de Phone Number [facility] [address] [place] [address], * (ABNORMAL) Hemoglobin A1c (08/16/2014 4:36 PM EDT) Pathologist [facility] Hemoglobin A1C 6.4(H) 4.00 - 6.00 % [facility] Comment: DF by IF @ 08/16/2014 18:48 The [place] [employer] recommends maintenance of Hemoglobin A1C at 7.0% or lower. Goals for Hemoglobin A1C reduction may need to be modified if hypoglycemia is a problem. Mean Bld Glu Estim. 132 mg/dL [facility] Blood specimen (specimen) 08/16/2014 4:36 PM EDT [facility] - 08/16/2014 6:48 PM EDT Specimen Type: Blood Bacilio Espinoza MD LAB BLOOD ORDERABLES Final Resu lt Performing Organization Address [facility] de Phone Number [facility] [address] [place] [address], * (ABNORMAL) Pre-Eclampsia Panel (08/16/2014 4:36 PM EDT) Creatinine 0.3(L) 0.6 - 1.3 mg/dL [facility] Uric Acid 3.0(L) 3.1 - 7.8 mg/dL [facility] Alkaline Phosphatase 145(H) 25 - 100 Units/L [facility] AST (SGOT) 12 0 - 33 Units/L [facility] LDH 137 120 - 246 Units/L [facility] ALT (SGPT) 14 7 - 40 Units/L [facility] Total Bilirubin 0.2(L) 0.3 - 1.2 mg/dL [facility] Blood specimen (specimen) 08/16/2014 4:36 PM EDT [facility] - 08/16/2014 5:20 PM EDT Specimen Type: Blood Bacilio Espinoza MD LAB BLOOD ORDERABLES Final Resu lt Performing Organization Address [facility] [place] [address], * (ABNORMAL) CBC (No diff) (08/16/2014 4:36 PM EDT) WBC 6.81 3.50 - 10.80 [facility] RBC 4.01 3.89 - 5.14 /[facility] Hemoglobin 11.1(L) 11.5 - 15.5 g/dL [facility] Hematocrit 33.2(L) 34.5 - 44.0 % [facility] MCV 82.8 80.0 - 99.0 fL [facility] MCH 27.7 27.0 - 31.0 pg [facility] MCHC 33.4 32.0 - 36.0 g/dL [facility] RDW-CV 13.0 11.3 - 14.5 % [facility] Platelets 216 150 - 450 K/[facility] Blood specimen (specimen) 08/16/2014 4:36 PM EDT [facility] - 08/16/2014 5:06 PM EDT Specimen Type: Blood Bacilio Espinoza MD LAB BLOOD ORDERABLES Final Resu lt Performing Organization Address City/[facility]/ZIP Co de Phone Number [facility] [address] [place] [address], [place] [phone] documented in this encounter Visit Diagnoses Not on filedocumented in this encounter
--- OUTSIDE RECORDS SUMMARY | 2024-01-11 19:04 | XMS_ITS | Encounter Summary ---
[facility] [address] [place] [address] Care Team Providers Care Club Car Attendant Name Role Phone Unavailable Primary Care Provider Unavailabl e Encounter Details Date Type Department Care Team (Late st Contact Info) Description 07/07/2014 9:07 AM EDT - 07/07/2014 11:59 PM EDT Hospital Encounter [facility] DEPARTMENT [address] [place] [phone] Provider, [place] [address] 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 Tobacco Use Types Packs/Day Years [...] Procedure Name Priority Date/Time Associated Diagnosis Comments GLUCOSE, FINGERSTICK Routine 07/07/2014 9:08 AM EDT documented in this encounter Results * Glucose, Fingerstick (07/07/2014 9:08 AM EDT) Glucose 127 mg/dL [facility] Blood specimen (specimen) 07/07/2014 9:08 AM EDT Narrative [facility] - 07/07/2014 7:07 PM EDT Specimen Type: Blood us No Known Provider LAB BLOOD ORDERABLES Final Res ult [facility] [address] [place] [address], documented in this encounter Visit Diagnoses Not on filedocumented in this encounter
--- OUTSIDE RECORDS SUMMARY | 2024-01-11 19:04 | XMS_ITS | Encounter Summary ---
Author Organization [email or web address] Address [address] [place] [address] Care Team Providers Care Batch Dumper Name Role Phone Unavailable Primary Care Provider Unavailabl e Encounter Details Date Type Department Care Team (Late st Contact Info) Description 04/23/2020 Transcribed Document [facility] Family Medicine [facility] [place] [address] ProviderPreston MD [address], [place] [phone] 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 Tobacco Use Types Packs/Day Years Used Date Smoking Tobacco: Never Assessed Comments Unknown Sex and Gender Information Value Date Recorded Sex Assigned at Not on file Legal Sex Female 6:58 PM CDT Gender Identity Not on file Sexual Orientation Not on file documented as of this encounter Miscellaneous Notes * [employer] Conversion Note - Historical ProviderMD - 04/23/2020 12:27 PM THIRD HELPER [facility] Main OR PostOp Summary Primary Physician: ZONIA PENALOZA MD-SUR Finalized Date/Time: 04/23/20 15:49:23 Pt. Name: IVON MARTINEZ/Sex: 1990 Female Med Rec #: [id number] Physician: ZONIA PENALOZA MD-SUR Financial #: [id number] Pt. Type: O Room/Bed: /1 Admit/Disch: 04/23/20 09:08:00 - Institution: [facility] Main OR PostOp Case Times Entry 1 In PACU II 04/23/20 14:05:00 Ready for PACU II 04/23/20 15:00:00 Discharge Discharge from PACU 04/23/20 15:00:00 II Last Modified By: Alondra Segal Rn 04/23/20 15:49:21 Finalized By: Alondra Segal, Rn Document Signatures Signed By: Alondra Segal Rn 04/23/20 15:49 Electronically signed by [facility] Conversion Credit Charge Authorizer [employer]ner at 06/05/2022 6:52 PM CDT documented in this encounter Plan of Treatment Not on file documented as of this encounter Visit Diagnoses Not on filedocumented in this encounter
--- OUTSIDE RECORDS SUMMARY | 2024-01-11 19:04 | XMS_ITS | Encounter Summary ---
Author Organization [facility] Address [address] [place] [id number] Care Team Providers Care Tunnel Kiln Operator Name Role Phone Provider, No Known Primary Care Provider Unavail able Reason for Visit * Reason Comments Abdominal Pain Encounter Details Date Type Department Care Team (Late st Contact Info) Description 07/18/2016 8:42 PM EDT - 07/18/2016 10:55 PM EDT Emergency [facility] EM[facility] [address] [place] [address] Ja Taylor MD [address] [facility] [place] [address] Pelvic pain (Primary Dx); Endometriosis Discharge Disposition: Home or Self Care 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 Tobacco Use Types Packs/Day Years Used Date Smoking Tobacco: Never Alcohol Use Standard Drinks/Week Comments [...] Sign Reading Time Taken Comments Blood Pressure 121/67 07/18/2016 10:52 PM EDT Pulse 89 07/18/2016 10:52 PM EDT Temperature 36.7 ??C (98.1 ??F) 07/18/2016 10:52 PM E DT Respiratory Rate 14 07/18/2016 10:52 PM EDT Oxygen Saturation 99% 07/18/2016 10:52 PM EDT Inhaled Oxygen Concentration - - Weight 132 kg (290 lb) 07/18/2016 8:34 PM EDT Height 167.6 cm (5' 6 ) 07/18/2016 8:34 PM EDT Body Mass Index 46.81 07/18/2016 8:34 PM EDT documented in this encounter Medications at Time of Discharge diclofenac (CATAFLAM) 50 MG tablet Take 1 tablet by mouth 3 (Three) Times a Day. 15 tablet 07/18/2016 07/30/2018 documented as of this encounter ED Notes * Sahil Glover PA - 07/18/2016 10:34 PM EDT Subjective Patient is a 25 y.o. female presenting with abdominal pain. History provided by: Patient plant pathologist used: No Abdominal Pain Pain location: Generalized Pain quality: cramping and dull Pain radiates to: Does not radiate Pain severity: Moderate Onset quality: Gradual Timing: Intermittent Progression: Waxing and waning Chronicity: Chronic Context comment: Hx endometriosis Relieved by: Nothing Worsened by: Nothing Ineffective treatments: None tried Associated symptoms: no anorexia, no chills, no cough, no diarrhea, no dysuria, no fever, no hematemesis, no hematochezia, no hematuria, no sore throat, no vaginal bleeding and no vomiting Review of Systems Constitutional: Negative for chills and fever. HENT: Negative for sore throat. Respiratory: Negative for cough and wheezing. Gastrointestinal: Positive for abdominal pain. Negative for anorexia, diarrhea, hematemesis, hematochezia and vomiting. Genitourinary: Negative for dysuria, flank pain, frequency, hematuria, urgency and vaginal bleeding. Musculoskeletal: Negative for back pain, myalgias and neck pain. Skin: Negative for pallor and rash. Psychiatric/Behavioral: Negative. All other systems reviewed and are negative. Past Medical History: Diagnosis Date ??? Endometriosis ??? Fibroid tumor ??? Ovarian cyst No Known Allergies Past Surgical History: Procedure Laterality Date ??? SECTION ??? CHOLECYSTECTOMY ??? DILATATION AND CURETTAGE ??? TONSILLECTOMY ??? TUBAL ABDOMINAL LIGATION History reviewed. No pertinent family history. 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 ??? Marital status: Single Spouse name: N/A ??? Number of children: N/A ??? Years of education: N/A 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 Main Topics ??? Smoking status: Never Smoker ??? Smokeless tobacco: None ??? Alcohol use No ??? Drug use: No ??? Sexual activity: Not Asked Other Topics Concern ??? None 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 Narrative ??? None Objective Physical Exam Constitutional: She is oriented to person, place, and time. She appears well- developed and well-nourished. HENT: Head: Normocephalic and atraumatic. Right Ear: External ear normal. Left Ear: External ear normal. Nose: Nose normal. Mouth/Throat: Oropharynx is clear and moist. Eyes: Conjunctivae and EOM are normal. Pupils are equal, round, and reactive to light. No scleral icterus. Neck: Normal range of motion. No thyromegaly present. Cardiovascular: Normal rate, regular rhythm and normal heart sounds. Pulmonary/Chest: Effort normal and breath sounds normal. No respiratory distress. She has no wheezes. She has no rales. She exhibits no tenderness. Abdominal: Soft. Bowel sounds are normal. She exhibits no distension and no mass. There is tenderness (diffuse non focal ). There is no rebound and no guarding. No hernia. Musculoskeletal: Normal range of motion. Lymphadenopathy: She has no cervical adenopathy. Neurological: She is alert and oriented to person, place, and time. She has normal reflexes. She displays normal reflexes. No cranial nerve deficit. Coordination normal. Skin: Skin is warm and dry. Psychiatric: She has a normal mood and affect. Her behavior is normal. Judgment and thought contentnormal. Nursing note and vitals reviewed. Procedures ED Course ED Course No results found for this or any previous visit (from the past 24 hour(s)). Note: In addition to lab results from this visit, the labs listed above may include labs taken at another facility or during a different encounter within the last 24 hours. Please correlate lab timeswith ED admission and discharge times for further clarification of the services performed during this visit. CT Abdomen Pelvis Without Contrast Final Result Abnormal 1. No acute findings. 2. Non-acute findings are described above. THIS DOCUMENT HAS BEEN ELECTRONICALLY SIGNED BY MARLEEN RUBIN MD Vitals: 07/18/16 2102 07/18/16 2130 07/18/16 2230 07/18/16 2252 BP: 137/95 130/93 121/67 BP Location: Right arm Patient Position: Sitting Pulse: 88 89 Resp: 14 Temp: 98.1 ??F (36.7 ??C) TempSrc: Oral SpO2: 97% 99% 97% 99% Weight: Height: Medications ketorolac (TORADOL) injection 30 mg (30 mg Intravenous Given 07/18/16 2130) ECG/EMG Results (last 24 hours) No results found for the last 24 hours. MDM Number of Diagnoses or Management Options Endometriosis: new and requires workup Pelvic pain: new and requires workup Amount and/or Complexity of Data Reviewed Clinical lab tests: reviewed and ordered Tests in the radiology section of CPT??: reviewed and ordered Tests in the medicine section of CPT??: ordered and reviewed Discuss the patient with other providers: yes Patient Progress Patient progress: stable Final diagnoses: Pelvic pain Endometriosis NAM Mendes 07/20/16 0747 Cosigned by Ja Taylor MD at 07/21/2016 8:47 AM EDT Associated attestation - Ja Taylor MD - 07/21/2016 8:47 AM EDT For this patient encounter, I reviewed the RN L AND D or PA documentation, treatment plan, and medical decision making. Ja Taylor MD 07/21/2016 8:46 AM documented in this encounter Plan of Treatment Not on file documented as of this encounter Procedures Procedure Name Priority Date/Time Associated Diagnosis Comments CT ABDOMEN PELVIS WO CONTRAST STAT 07/18/2016 10:19 PM EDT POCT PEFORM URINE STAT 07/18/2016 9:06 PM EDT URINALYSIS W/ CULTURE IF INDICATED STAT 07/18/2016 9:02 PM EDT GOLD TOP - SST STAT 07/18/2016 8:43 PM EDT DK GREEN TOP STAT 07/18/2016 8:43 PM EDT CBC WITH AUTO DIFFERENTIAL STAT 07/18/2016 8:43 PM EDT LAVENDER TOP STAT 07/18/2016 8:43 PM EDT LIGHT BLUE TOP STAT 07/18/2016 8:43 PM EDT RAINBOW DRAW STAT 07/18/2016 8:43 PM EDT CBC AND DIFFERENTIAL STAT 07/18/2016 8:43 PM EDT LIPASE STAT 07/18/2016 8:43 PM EDT COMPREHENSIVE METABOLIC PANEL STAT 07/18/2016 8:43 PM EDT documented in this encounter Results * (ABNORMAL) CT Abdomen Pelvis Without Contrast (07/18/2016 10:19 PM EDT) Anatomical Region Laterality Modality Abdomen, Pelvis N/A Computed Tomogra phy 07/18/2016 9:25 PM EDT Impressions 07/18/2016 10:25 PM EDT 1. No acute findings. 2. Non-acute findings are described above. THIS DOCUMENT HAS BEEN ELECTRONICALLY SIGNED BY MARLEEN RUBIN MD Narrative 07/18/2016 10:25 PM EDT EXAM: CT Abdomen and Pelvis Without Intravenous Contrast CLINICAL HISTORY: 25 years old, female; Signs and symptoms; Other: See notes; Additional info: Lower abd pain TECHNIQUE: Axial computed tomography images of the abdomen and pelvis without intravenous contrast. ??This CT exam was performed using one or more of the following dose reduction techniques: ??automated exposure control, adjustment of the mA and/or kV according to patient size, and/or use of iterative reconstruction technique. Coronal reformatted images were created and reviewed. COMPARISON: No relevant prior studies available. FINDINGS: Lower thorax: ??Small-sized hiatal hernia. ABDOMEN: Liver: ??Normal. Gallbladder and bile ducts: ??Gallbladder is surgically absent. Pancreas: ??Normal. Spleen: ??Normal. Adrenals: ??Normal. Kidneys and ureters: ??Normal. Stomach and bowel: ??Normal. Appendix: ??No findings to suggest acute appendicitis. PELVIS: Bladder: ??Normal. Reproductive: ??Normal as visualized. ABDOMEN and PELVIS: Intraperitoneal space: ??Normal. ??No free air. ??No significant fluid collection. Bones/joints: ??Degenerative changes of the hips and sacroiliac joints. ?? Multilevel thoracolumbar spine degenerative changes. ??No acute fracture. ??No dislocation. Soft tissues: ??Small fat containing umbilical hernia. Vasculature: ??Phleboliths within the pelvis. ??No abdominal aortic aneurysm. Lymph nodes: ??Several small lymph nodes within the right upper quadrant, likely reactive, but nonspecific. Procedure Note Marleen Rubin MD - 07/18/2016 EXAM: CT Abdomen and Pelvis Without Intravenous Contrast CLINICAL HISTORY: 25 years old, female; Signs and symptoms; Other: See notes; Additionalinfo: Lower abd pain TECHNIQUE: Axial computed tomography images of the abdomen and pelvis withoutintravenous contrast. This CT exam was performed using one or more of the followingdose reduction techniques: automated exposure control, adjustment of the mAand/or kV according to patient size, and/or use of iterative reconstructiontechnique. Coronal reformatted images were created and reviewed. COMPARISON: No relevant prior studies available. FINDINGS: Lower thorax: Small-sized hiatal hernia. ABDOMEN: Liver: Normal. Gallbladder and bile ducts: Gallbladder is surgically absent. Pancreas: Normal. Spleen: Normal. Adrenals: Normal. Kidneys and ureters: Normal. Stomach and bowel: Normal. Appendix: No findings to suggest acute appendicitis. PELVIS: Bladder: Normal. Reproductive: Normal as visualized. ABDOMEN and PELVIS: Intraperitoneal space: Normal. No free air. No significant fluidcollection. Bones/joints: Degenerative changes of the hips and sacroiliac joints. Multilevel thoracolumbar spine degenerative changes. No acute fracture.No dislocation. Soft tissues: Small fat containing umbilical hernia. Vasculature: Phleboliths within the pelvis. No abdominal aorticaneurysm. Lymph nodes: Several small lymph nodes within the right upper quadrant,likely reactive, but nonspecific. IMPRESSION: 1.No acute findings. 2.Non-acute findings are described above. THIS DOCUMENT HAS BEEN ELECTRONICALLY SIGNED BY MARLEEN RUBIN MD Sahil BROWNING IM CT ORDERABLES Final R esult * POCT , urine (07/18/2016 9:06 PM EDT) HCG, Urine, QL Negative Negative [facility] Lot Number [id number] [facility] Internal Positive Control Positive [facility] Internal Negative Control Negative [facility] Urine 07/18/2016 9:06 PM EDT Ja Taylor MD POINT OF CARE TEST ORDERABLES Final Result [facility]
[address] [place] [address], * Urinalysis With / Culture If Indicated (07/18/2016 9:02 PM EDT) Color, UA Yellow Yellow, Straw 07/18/2016 9:16 PM EDT [facility] Appearance, UA Clear Clear 07/18/2016 9:16 PM EDT [facility] pH, UA 6.0 5.0 - 8.0 07/18/2016 9:16 PM EDT [facility] Specific [place], UA 1.022 1.001 - 1.030 07/18/2016 9:16 PM EDT [facility] Glucose, UA Negative Negative 07/18/2016 9:16 PM EDT [facility] Ketones, UA Negative Negative 07/18/2016 9:16 PM EDT [facility] Bilirubin, UA Negative Negative 07/18/2016 9:16 PM EDT [facility] Blood, UA Negative Negative 07/18/2016 9:16 PM EDT [facility] Protein, UA Negative Negative 07/18/2016 9:16 PM EDT [facility] Leuk Esterase, UA Negative Negative 07/18/2016 9:16 PM EDT [facility] Nitrite, UA Negative Negative 07/18/2016 9:16 PM EDT [facility] Urobilinogen, UA 0.2 E.U./dL 0.2 - 1.0 E.U./dL 07/18/2016 9:16 PM EDT [facility] Urine Urine specimen collection, clean catch / Unknown Collection / Unknown 07/18/2016 9:02 PM EDT 07/18/2016 9:11 PM EDT Narrative [facility] - 07/18/2016 9:16 PM EDT Urine microscopic not indicated. Ja Taylor MD URINE ORDERABLES Final Result [facility]
[address] [place] [address], * (ABNORMAL) CBC Auto Differential (07/18/2016 8:43 PM EDT) WBC 7.93 3.50 - 10.80 10*3/mm3 07/18/2016 8:56 PM EDT [facility] RBC 4.50 3.89 - 5.14 10*6/mm3 07/18/2016 8:56 PM EDT [facility] Hemoglobin 12.6 11.5 - 15.5 g/dL 07/18/2016 8:56 PM EDT [facility] Hematocrit 38.0 34.5 - 44.0 % 07/18/2016 8:56 PM EDT [facility] MCV 84.4 80.0 - 99.0 fL 07/18/2016 8:56 PM EDT [facility] MCH 28.0 27.0 - 31.0 pg 07/18/2016 8:56 PM EDT [facility] MCHC 33.2 32.0 - 36.0 g/dL 07/18/2016 8:56 PM EDT [facility] RDW 12.6 11.3 - 14.5 % 07/18/2016 8:56 PM EDT [facility] RDW-SD 38.3 37.0 - 54.0 fl 07/18/2016 8:56 PM EDT [facility] MPV 10.5 6.0 - 12.0 fL 07/18/2016 8:56 PM EDT [facility] Platelets 273 150 - 450 10*3/mm3 07/18/2016 8:56 PM EDT [facility] Neutrophil % 50.9 41.0 - 71.0 % 07/18/2016 8:56 PM EDT [facility] Lymphocyte % 37.1 24.0 - 44.0 % 07/18/2016 8:56 PM EDT [facility] Monocyte % 6.1 0.0 - 12.0 % 07/18/2016 8:56 PM EDT [facility] Eosinophil % 5.0(H) 0.0 - 3.0 % 07/18/2016 8:56 PM EDT [facility] Basophil % 0.6 0.0 - 1.0 % 07/18/2016 8:56 PM EDT [facility] Immature Grans % 0.3 0.0 - 0.6 % 07/18/2016 8:56 PM EDT [facility] Neutrophils, Absolute 4.04 1.50 - 8.30 10*3/mm3 07/18/2016 8:56 PM EDT [facility] Lymphocytes, Absolute 2.94 0.60 - 4.80 10*3/mm3 07/18/2016 8:56 PM EDT [facility] Monocytes, Absolute 0.48 0.00 - 1.00 10*3/mm3 07/18/2016 8:56 PM EDT [facility] Eosinophils, Absolute 0.40(H) 0.10 - 0.30 10*3/mm3 07/18/2016 8:56 PM EDT [facility] Basophils, Absolute 0.05 0.00 - 0.20 10*3/mm3 07/18/2016 8:56 PM EDT [facility] Immature Grans, Absolute 0.02 0.00 - 0.03 10*3/mm3 07/18/2016 8:56 PM EDT [facility] Blood Venipuncture / Unknown 07/18/2016 8:43 PM EDT 07/18/2016 8:53 PM EDT us Ja Taylor MD LAB BLOOD ORDERABLES Final Res ult Performing Organization Address City/[facility]/ZIP Co de Phone Number [facility]
[address] [place] [address], * Gold Top - SST (07/18/2016 8:43 PM EDT) Extra Tube Hold for add-ons. 07/18/2016 10:01 PM EDT [facility] Comment:Auto resulted. Blood Venipuncture / Unknown 07/18/2016 8:43 PM EDT 07/18/2016 8:52 PM EDT Ja Taylor MD LAB BLOOD ORDER ONLY Final Res ult Performing Organization Address [facility] Co de Phone Number [facility]
[address] [place] [address], * Lavender Top (07/18/2016 8:43 PM EDT) Extra Tube hold for add-on 07/18/2016 10:01 PM EDT [facility] Comment:Auto resulted Blood Venipuncture / Unknown 07/18/2016 8:43 PM EDT 07/18/2016 8:53 PM EDT Ja Taylor MD LAB BLOOD ORDER ONLY Final Res ult Performing Organization Address City/[facility]/ZIP Co de Phone Number [facility]
[address] [place] [address], * Green Top (Gel) (07/18/2016 8:43 PM EDT) Extra Tube Hold for add-ons. 07/18/2016 10:01 PM EDT [facility] Comment:Auto resulted. Blood Venipuncture / Unknown 07/18/2016 8:43 PM EDT 07/18/2016 8:52 PM EDT us Ja Taylor MD LAB BLOOD ORDER ONLY Final Res ult Performing Organization Address [facility] de Phone Number [facility]
[address] [place] [address], * Light Blue Top (07/18/2016 8:43 PM EDT) Extra Tube hold for add-on 07/18/2016 10:01 PM EDT [facility] Comment:Auto resulted Blood Venipuncture / Unknown 07/18/2016 8:43 PM EDT 07/18/2016 8:52 PM EDT us Ja Taylor MD LAB BLOOD ORDER ONLY Final Res ult Performing Organization Address [facility] Phone Number [facility]
[address] [place] [address], * Lipase (07/18/2016 8:43 PM EDT) Lipase 44 6 - 51 U/L 07/18/2016 9:12 PM EDT [facility] Blood Venipuncture / Unknown 07/18/2016 8:43 PM EDT 07/18/2016 8:52 PM EDT us Ja Taylor MD LAB BLOOD ORDERABLES Final Res ult Performing Organization Address [facility] de Phone Number [facility]
[address] [place] [address], [place] [phone] * (ABNORMAL) Comprehensive Metabolic Panel (07/18/2016 8:43 PM EDT) Glucose 110(H) 70 - 100 mg/dL 07/18/2016 9:12 PM EDT [facility] BUN 10 9 - 23 mg/dL 07/18/2016 9:12 PM EDT [facility] Creatinine 0.70 0.60 - 1.30 mg/dL 07/18/2016 9:12 PM EDT [facility] Sodium 138 132 - 146 mmol/L 07/18/2016 9:12 PM EDT [facility] Potassium 3.8 3.5 - 5.5 mmol/L 07/18/2016 9:12 PM EDT [facility] Chloride 105 99 - 109 mmol/L 07/18/2016 9:12 PM EDT [facility] CO2 26.0 20.0 - 31.0 mmol/L 07/18/2016 9:12 PM EDT [facility] Calcium 9.7 8.7 - 10.4 mg/dL 07/18/2016 9:12 PM EDT [facility] Total Protein 7.2 5.7 - 8.2 g/dL 07/18/2016 9:12 PM EDT [facility] Albumin 4.20 3.20 - 4.80 g/dL 07/18/2016 9:12 PM EDT [facility] ALT (SGPT) 18 7 - 40 U/L 07/18/2016 9:12 PM EDT [facility] AST (SGOT) 13 0 - 33 U/L 07/18/2016 9:12 PM EDT [facility] Alkaline Phosphatase 79 25 - 100 U/L 07/18/2016 9:12 PM EDT [facility] Total Bilirubin 0.2(L) 0.3 - 1.2 mg/dL 07/18/2016 9:12 PM EDT [facility] eGFR Non Amer 100 >60 mL/min/1.7 3 07/18/2016 9:12 PM EDT [facility] Globulin 3.0 gm/dL 07/18/2016 9:12 PM EDT [facility] A/G Ratio 1.4(L) 1.5 - 2.5 g/dL 07/18/2016 9:12 PM EDT [facility] BUN/Creatinine Ratio 14.3 7.0 - 25.0 07/18/2016 9:12 PM EDT [facility] Anion Gap 7.0 3.0 - 11.0 mmol/L 07/18/2016 9:12 PM EDT [facility] Blood Venipuncture / Unknown 07/18/2016 8:43 PM EDT 07/18/2016 8:52 PM EDT Narrative [facility] - 07/18/2016 9:12 PM EDT [employer] Guidelines Stage ? Description ?GFR 1 ? Normal or High ? 90+ 2 ? Mild decrease ?60-89 3 ? Moderate decrease ??30-59 4 ? Severe decrease ?15-29 5 ? Kidney failure ? <15 us Ja Taylor MD LAB BLOOD ORDERABLES Final Res ult [facility]
[address] [place] [address], documented in this encounter Visit Diagnoses Diagnosis Pelvic pain- Primary Endometriosis Endometriosis, site unspecified documented in this encounter Administered Medications Inactive Administered Medications - up to 3 most recent administrations Medication Order MAR Action Action Date Dose Rate Site ketorolac (TORADOL) injection 30 mg 30 mg, Intravenous, Once, On Mon07/18/16 at 2126, For 1 dose, {BKC} Given 07/18/2016 9:30 PM EDT 30 mg sodium chloride 0.9 % flush 10 mL 10 mL, Intravenous, As Needed, Line Care, Starting on Mon07/18/16 at 203 documented in this encounter Active and Recently Administered Medications Times are shown in EDT. Scheduled Medication Order 07/16/2016 07/17/2016 07/18/2016 ketorolac (TORADOL) injection 30 mg (COMPLETED) 30 mg, Intravenous, Once, On Mon07/18/16 at 2126, For 1 dose, {BKC} 0 (Given - Provid er: Migdalia Han RN) PRN Medication Order 07/16/2016 07/17/2016 07/18/2016 sodium chloride 0.9 % flush 10 mL 10 mL, Intravenous, As Needed, Line Care, Starting on Mon07/18/16 at 2037 documented in this encounter Care Teams Tunnel Kiln Operator Relationship Specialty Start Date End Date Provider, [place] [address] PCP - General 10/02/14 07/29/18 documented as of this encounter
--- OUTSIDE RECORDS SUMMARY | 2024-01-11 19:04 | XMS_ITS | Encounter Summary ---
Author Organization [facility] Address [address] [place] [id number] Care Team Providers Care Engineer Specialist Name Role Phone Unavailable Primary Care Provider Unavailabl e Encounter Details Date Type Department Care Team (Late st Contact Info) Description 08/25/2014 9:07 AM EDT - 10/01/2014 2:12 PM EDT Hospital Encounter [facility] DEPARTMENT [address] [place] [address] Maxx Smith MD [address] [facility] [address] [place] [address] 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 Tobacco Use Types Packs/Day Years [...]
--- OUTSIDE RECORDS SUMMARY | 2024-01-11 19:04 | XMS_ITS | Encounter Summary ---
Author Organization [employer] Address [address] [place] [address] Care Team Providers Care Refrigerating Oiler Name Role Phone Unavailable Primary Care Provider Unavailabl e Encounter Details Date Type Department Care Team (Late st Contact Info) Description 07/12/2019 Transcribed Document [facility] [place] Family Medicine [facility] [place] [address] ProviderPreston MD [facility] [place] [id number] 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 Tobacco Use Types Packs/Day Years Used Date Smoking Tobacco: Never Assessed Comments Unknown Sex and Gender Information Value Date Recorded Sex Assigned at Not on file Legal Sex Female 6:58 PM CDT Gender Identity Not on file Sexual Orientation Not on file documented as of this encounter Miscellaneous Notes * Cerner Conversion Note - Historical ProviderMD - 07/12/2019 8:24 AM CDT PAT Adult Entered On: 07/12/2019 8:28 EDT Performed On: 07/12/2019 8:24 EDT by ROGER ELLIS RN Pain Assessment Pain Assessment : Initial assessment Pain Scale Used : 0-10 Scale Location : Abdomen, right lower Onset : Chronic ROGER ELLIS RN - 07/12/2019 8:24 EDT Height and Weight, Clinical Dosing Height Source : Measured Height Entry Format : [place] Height, Feet : 5 ft(Converted to: 152 cm, 60 Inch) Height, Inches : 5.5 Inch(Converted to: 0 ft 6 Inch, 13.97 cm) Clinical Height : 166.37 cm Weight Source : Standing scale Weight Entry Format : [place] Clinical Dosing Weight : 138.95 kg Weight, Pounds : 305.7 lb Body Surface Area (BSA) : 2.38 m2 Body Mass Index : 50.2 kg/m2 (>HHI) [place] Body Weight : 58 kg ROGER ELLIS RN - 07/12/2019 8:24 EDT Health Histories Smoking Status : Never (less than 100 in lifetime; none in last 30 days) Smokeless Tobacco Status : Never ROGER ELLIS RN - 07/12/2019 8:24 EDT 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 (As Of: 07/12/2019 08:28:47 EDT) Tobacco: Never (less than 100 in lifetime) Smoking Status. (Last Updated: 07/11/2019 15:33:33 EDT by Martha Singh RN) Alcohol: Alcohol Use Frequency Rarely. (Last Updated: 07/11/2019 15:33:44 EDT by Martha Singh RN) Substance Abuse: Drug Use Hx: No. (Last Updated: 07/11/2019 15:33:48 EDT by Martha Singh RN) Infectious Disease History Has the patient ever been tested for COVID-19? : Yes, Patient stated results pending Date of COVID-19 Test : 07/10/19 @ 1230 COVID19 Screening : No Experiencing Infectious Disease Symptoms : No symptoms Physical contact outside [place] in the last 30 days : No Infectious Disease Symptoms Score : 0 Infectious Disease History : Chicken pox/Shingles, Influenza Tuberculosis Symptoms : None ROGER ELLIS RN - 07/12/2019 8:24 EDT Anesthesia/Transfusion History Family History of Anesthesia Reaction : No prior transfusion(s) Blood Transfusion Acceptable to Patient : Yes Transfusion History : Prior anesthesia without reaction Family History of Anesthesia Reaction : None ROGER ELLIS RN - 07/12/2019 8:24 EDT Functional Assessment Functional ADL Evaluation Index EBN Bathing : Independent (2) Dressing : Independent (2) Toileting : Independent (2) Transferring Bed or Chair : Independent (2) Continence : Independent (2) Feeding : Independent (2) ROGER ELLIS RN - 07/12/2019 8:24 EDT ADL Index Score : 12 ROGER ELLIS RN - 07/12/2019 8:24 EDT Advance Directive Patient has Advance Directive *Q : No, patient refuses Advance Directive information ROGER ELLIS RN - 07/12/2019 8:24 EDT [place] Suicide Severity Rating Scale (C-SSRS) CSSRS Past Month Wish to be : No CSSRS Past Month Suicidal Thoughts : No CSSRS Lifetime Suicide Behavior : No Suicide Severity Rating Score : 0 Suicide Severity Rating : No Additional Care Required at this time ROGER ELLIS RN - 07/12/2019 8:24 EDT Psychosocial History Currently in Unsafe Situation : No ROGER ELLIS RN - 07/12/2019 8:24 EDT General Info Patient Arrival Date/Time : 07/12/2019 7:42 EDT Support Person/Pt Rep Name : Tawny Bernstein ()Mom) [phone] Want Family/Rep/Phys Notified of Admit : No Emergency Contact #1 : x Emergency Contact #1 Phone Number : x Emergency Contact #1 Relationship : x Emergency Contact #2 : x Emergency Contact #2 Phone Number : x Emergency Contact #2 Relationship : x Chief Complaint : x Primary Language : Maltese Communication Barrier : None ROGER ELLIS RN - 07/12/2019 8:24 EDT Edmundo Scale [place] Sensory Perception : No impairment Edmundo Moisture : Rarely moist [place] Activity : Walks occasionally [place] Mobility : No limitation Edmundo Nutrition : Adequate Edmundo Friction and Shear : No apparent problem [place]undo Score : 21 ROGER ELLIS RN - 07/12/2019 8:24 EDT Sleep Apnea Risk Assmt Hx of Obstructive Sleep Apnea Diagnosis : No Snore Loudly : No Tired, Fatigued, or Sleepy During Day : No Observed Stopping Breathing During Sleep : No Have/Are Being Treated for Hypertension : No BMI Greater Than 35 kg/m2 : Yes Age over 50 Years Old : No Neck Circumference Greater Than 40 cm : Yes Gender Male : No STOP-BANG Sleep Apnea Risk Level Score : 2 ROGER ELLIS RN - 07/12/2019 8:24 EDT Pain Scale Intensity : 9 ROGER ELLIS RN - 07/12/2019 8:24 EDT Image 4 - Images currently included in the form version of this document have not been included in the text rendition version of the form. documented in this encounter Plan of Treatment Not on file documented as of this encounter Visit Diagnoses Not on filedocumented in this encounter
--- OUTSIDE RECORDS SUMMARY | 2024-01-11 19:05 | XMS_ITS | Encounter Summary ---
Author Organization [employer] Address [address] [place] [address] Care Team Providers Care Lamp Inspector Name Role Phone Unavailable Primary Care Provider Unavailabl e Encounter Details Date Type Department Care Team (Late st Contact Info) Description 07/09/2019 Transcribed Document [facility] [place] Family Medicine [facility] [place] [address] ProviderPreston MD [facility] [place] [id number] 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 Tobacco Use Types Packs/Day Years Used Date Smoking Tobacco: Never Assessed Comments Unknown Sex and Gender Information Value Date Recorded Sex Assigned at Not on file Legal Sex Female 6:58 PM CDT Gender Identity Not on file Sexual Orientation Not on file documented as of this encounter Miscellaneous Notes * Cerner Conversion Note - Historical ProviderMD - 07/09/2019 9:58 PM CDT ED Discharge Entered On: 07/09/2019 21:58 EDT Performed On: 07/09/2019 21:58 EDT by Ollie Washington Paramedic Discharge Process Patient Disposition : Discharge Personal Belongings With Patient : Yes Patient Education Completed : Yes Teaching Evaluation : Verbalizes understanding IV Discontinued : Not applicable Nursing Documentation Completed : Yes Ollie Washington Paramedic - 07/09/2019 21:58 EDT ED Discharge Discharge To : Home with ambulatory/outpatient follow-up Mode Of Departure : Ambulatory Accompanied By : Unaccompanied Discharge Instructions Reviewed With, Opportunity For Questions Given : Patient Prescriptions Given to Patient : No Ollie Washington Paramedic - 07/09/2019 21:58 EDT documented in this encounter Plan of Treatment Not on file documented as of this encounter Visit Diagnoses Not on filedocumented in this encounter
--- OUTSIDE RECORDS SUMMARY | 2024-01-11 19:05 | XMS_ITS | Encounter Summary ---
Author Organization [employer] Address [address] [place] [address] Care Team Providers Care Hand Buffing Wheel Former Name Role Phone Unavailable Primary Care Provider Unavailabl e Encounter Details Date Type Department Care Team (Late st Contact Info) Description 07/09/2019 Transcribed Document [facility] [place] Family Medicine [facility] [place] [address] ProviderPreston MD [address] [place] [id number] 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 Tobacco Use Types Packs/Day Years Used Date Smoking Tobacco: Never Assessed Comments Unknown Sex and Gender Information Value Date Recorded Sex Assigned at Not on file Legal Sex Female 6:58 PM CDT Gender Identity Not on file Sexual Orientation Not on file documented as of this encounter Miscellaneous Notes * Cerner Conversion Note - Preston Hinds MD - 07/09/2019 8:16 PM CDT Patient: IVON MARTINEZ Age: 28 years Sex: Female : 1990 Associated Diagnoses: Abdominal pain Author: LIAN DONOVAN MD Basic Information History source: Patient. Arrival mode: Private vehicle. History limitation: None. Additional information: Chief Complaint from Nursing Triage Note : Chief Complaint 07/09/2019 19:59 EDT Chief Complaint pain at umbilicus radiating around side into lower right back; nausea, vomiting, diarrhea, and states some blood noted in stool; seen here yesterday for same 07/08/2019 13:36 EDT Chief Complaint Right sided lower abdominal pain, nausea, diarrhea, vomiting X2 days. Appt with Dr. Carvalho on MON regarding her appendix to be removed . History of Present Illness This is a 28-year-old female with a past medical history significant for morbid obesity who presents to the emergency department for evaluation of periumbilical pain that radiates to her right lower back. She's had nausea and vomiting seceded with this, also some watery diarrhea, occasionally streaked with blood. This has been a chronic problem for her and she has follow-up with general surgery tomorrow to consider nonemergent appendectomy. She was seen here yesterday with a CT scan that showed no acute process. Lab work unremarkable for any acute findings and she was discharged feeling better and in stable condition. Patient has been taking [place] at home with no relief of symptoms. She states the pain is persistent and is worse when she walks. She is irritable and frustrated, lying on the bed with her right leg propped up on the guardrail. No fever, chest pain, shortness of breath. She denies any urinary symptoms. Review of Systems Additional review of systems information: 10 point review of systems reviewed and negative except as stated in history of present illness . Health Status Allergies: Allergic Reactions (Selected) No Known Allergies. Medications: (Selected) Prescriptions Prescribed Lagunitas 5 mg-325 mg oral tablet: 1 Tab, Oral, Q4H, PRN: for pain, 24 Tab, 0 Refill(s) [place] 7.5 mg-325 mg oral tablet: 1 Tab, Oral, Q6H, PRN: for pain, 10 Tab, 0 Refill(s) Zofran ODT 4 mg oral tablet, disintegratin Tab, Oral, BID, 10 Tab, 0 Refill(s), per nurse's notes. Immunizations: Per nurse's notes. Past Medical/ Family/ 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 Medical history Reviewed as documented in chart. Surgical history: section ([id number]). Cholecystectomy (43055260). D&C - Dilatation and curettage ([id number]). Tubal ligation ([id number]). Tonsillectomy ([id number])., Reviewed as documented in chart. Family history: No family history items have been selected or recorded., Reviewed as documented in chart. Social history: Social & Psychosocial Habits No Data Available , Reviewed as documented in chart. Problem list: No qualifying data available , per nurse's notes. Physical Examination Vital Signs Vital Signs/Vital Measures 07/09/2019 19:59 EDT Blood Pressure Location Arm, right lower Blood Pressure Source Non-Invasive BP Device Systolic Blood Pressure 142 mmHg HI Diastolic Blood Pressure 92 mmHg HI Temperature Source Temporal artery scanning Temperature Mode Fahrenheit Temperature, Fahrenheit 97.6 Deg F Clinical Temperature, C 36.4 Deg C Peripheral Pulse Rate 100 bpm Respiratory Rate 18 Breaths/Min Oxygen Saturation 96 % 07/08/2019 16:49 EDT Systolic Blood Pressure 145 mmHg HI Diastolic Blood Pressure 89 mmHg Peripheral Pulse Rate 98 bpm Oxygen Saturation 97 % 07/08/2019 13:36 EDT Systolic Blood Pressure 156 mmHg HI Diastolic Blood Pressure 116 mmHg HI Temperature Source Oral Temperature Mode Fahrenheit Temperature, Fahrenheit 97.8 Deg F Clinical Temperature, C 36.6 Deg C Peripheral Pulse Rate 108 bpm HI Respiratory Rate 16 Breaths/Min Oxygen Saturation 98 % Oxygen Therapy Mode Room air . Per nurse's notes. Measurements 07/09/2019 19:59 EDT Height Source Stated Height Entry Format [place] Height/Length, CUBAN (ft) 5 ft Height/Length CUBAN 5.5 Inch CLINICALHEIGHT 166.37 cm [place] Body Weight 57.73 kg Weight Source, ED Critical estimated dosing weight Weight Entry Format [place] Weight [place] lb 303 lb CLINICALWEIGHT 137.73 kg Body Surface Area (BSA) 2.38 m2 Body Mass Index 49.8 kg/m2 >HHI 07/08/2019 13:36 EDT Height Source Stated Height Entry Format [place] Height/Length, CUBAN (ft) 5 ft Height/Length CUBAN 5 Inch CLINICALHEIGHT 165.1 cm [place] Body Weight 56.59 kg Weight Source, ED Critical estimated dosing weight Weight Entry Format [place] Weight [place] lb 308 lb CLINICALWEIGHT 140 kg Body Surface Area (BSA) 2.38 m2 Body Mass Index 51.4 kg/m2 >HHI . Oxygen Saturation 07/09/2019 19:59 EDT Oxygen Saturation 96 % 07/08/2019 16:49 EDT Oxygen Saturation 97 % 07/08/2019 13:36 EDT Oxygen Saturation 98 % . General: Alert, no acute distress. Skin: Warm, dry. Head: Normocephalic. Neck: Supple. Ears, nose, mouth and throat: Oral mucosa moist. Cardiovascular: Regular rate and rhythm, No murmur. Respiratory: Lungs are clear to auscultation, respirations are non-labored, breath sounds are equal. Gastrointestinal: Soft, Nontender, Non distended. Neurological: Normal speech observed, normal coordination observed. Psychiatric: Cooperative. Medical Decision Making Documents reviewed: Emergency department nurses' notes, prior records. Results review: Lab results : Lab Results 07/09/2019 20:52 EDT Sodium Level 139 mmol/L Potassium Level 3.6 mmol/L Chloride Level 108 mmol/L Carbon Dioxide Level 25 mmol/L Anion Gap 10 Glucose Level 102 mg/dL Blood Urea Nitrogen 6 mg/dL LOW CREATININE 0.60 mg/dL eGFR >60 mL/min/1.73m2 eGFR NonAfrican >60 mL/min/1.73m2 Bun/Creatinine 10.0 Calcium Level 8.4 mg/dL Protein Total 7.0 Gram/dL Albumin Level 3.4 Gram/dL Globulin 3.6 Gram/dL A/G Ratio 0.9 LOW Bilirubin Total 0.3 mg/dL Alk Phos 70 Units/Liter AST 19 Units/Liter ALT 36 Units/Liter Lipase Level 131 Units/Liter WBC 6.2 K/uL RBC 4.18 Million/uL Hgb 12.7 g/dL Hct 36.8 % MCV 88.0 fL MCH 30.4 pg MCHC 34.5 Gram/dL Platelet Count 236 K/uL MPV 10.2 fL RDW 11.8 % Neut % 51.6 % Neut # 3.18 K/uL Lymph % 34.7 % Lymph # 2.14 x10(3)/uL Josephine % 7.1 % Josephine # 0.44 K/uL Eos % 5.3 % Eos # 0.33 x10(3)/uL Baso % 1.0 % Baso # 0.06 x10(3)/uL Slide Review No IG# 0.02 x10(3)/uL IG% 0.30 % 07/08/2019 14:16 EDT Sodium Level 139 mmol/L Potassium Level 3.8 mmol/L Chloride Level 104 mmol/L Carbon Dioxide Level 27 mmol/L Anion Gap 12 Glucose Level 89 mg/dL Blood Urea Nitrogen 7 mg/dL CREATININE 0.60 mg/dL eGFR >60 mL/min/1.73m2 eGFR NonAfrican >60 mL/min/1.73m2 Bun/Creatinine 11.7 Calcium Level 8.6 mg/dL Protein Total 7.7 Gram/dL Albumin Level 3.8 Gram/dL Globulin 3.9 Gram/dL A/G Ratio 1.0 LOW Bilirubin Total 0.4 mg/dL Alk Phos 77 Units/Liter AST 22 Units/Liter ALT 40 Units/Liter Lipase Level 132 Units/Liter WBC 7.8 K/uL RBC 4.39 Million/uL Hgb 13.4 g/dL Hct 37.9 % MCV 86.3 fL MCH 30.5 pg MCHC 35.4 Gram/dL Platelet Count 274 K/uL MPV 10.5 fL RDW 11.9 % Neut % 56.0 % Neut # 4.37 K/uL Lymph % 30.3 % Lymph # 2.37 x10(3)/uL Josephine % 7.8 % Josephine # 0.61 K/uL Eos % 4.6 % Eos # 0.36 x10(3)/uL Baso % 0.9 % Baso # 0.07 x10(3)/uL Slide Review No IG# 0.03 x10(3)/uL IG% 0.40 % HCG Serum Quant <1.0 mIU/mL NA 07/08/2019 14:10 EDT Urine Type U CleanCatch Urine Color Yellow Urine Appearance Slightly Cloudy Urine Specific [place] 1.015 Urine pH Dipstick 7.0 Urine Leukocyte Esterase Negative Urine Nitrite Negative Urine Protein Dipstick Negative Urine Glucose Dipstick Negative Urine Ketones Dipstick Negative Urine Urobilinogen Dipstick 0.2 EU/dL Urine Bilirubin Dipstick Negative Urine Blood Dipstick Negative . Notes: Labs are excellent with no signs of biliary obstruction, pancreatitis. No leukocytosis that would suggest acute infectious process and patient is afebrile. She has no focal right lower quadrant tenderness, and that she has a nontender abdomen in general on exam. Unlikely obstructive process given history and exam. No vomiting while in the ED. Her urinalysis is negative for infection. CT scan performed yesterday with no acute findings and she has no change in her symptoms today. In addition, this appears to be a chronic issue for her. She has follow-up tomorrow with surgeon, discharged home.. Impression and Plan Diagnosis Abdominal pain - Discharge, Medical Plan Condition: Stable. Disposition: Discharged Admit/Transfer/Discharge: Discharge (Order): Start: 07/09/2019 21:26 EDT, Discharge to: Home. Patient was given the following educational materials: Abdominal Pain, Adult. Follow up with: ANGELLA MCDONOUGH Within 2 to 3 days; Follow-up with your surgeon tomorrow as planned. Return to the ED for any acute new concerns. Within in AM. Counseled: Patient, Regarding diagnosis, Regarding diagnostic results, Regarding treatment plan, Patient indicated understanding of instructions. Electronically signed by Napoleon Peter Conversion Airborne Operations Superintendent Cerner at 06/05/2022 6:32 PM CDT documented in this encounter Plan of Treatment Not on file documented as of this encounter Visit Diagnoses Not on filedocumented in this encounter
--- OUTSIDE RECORDS SUMMARY | 2024-01-11 19:05 | XMS_ITS | Encounter Summary ---
Author Organization [facility] [employer] Address [address] [place] [address] Care Team Providers Care Varitype Operator Name Role Phone Unavailable Primary Care Provider Unavailabl e Encounter Details Date Type Department Care Team (Late st Contact Info) Description 07/09/2019 Transcribed Document [facility] [place] Family Medicine [facility] [place] [address] Preston Hinds MD [address] [place] [address] 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 Tobacco Use Types Packs/Day Years Used Date Smoking Tobacco: Never Assessed Comments Unknown Sex and Gender Information Value Date Recorded Sex Assigned at Not on file Legal Sex Female 6:58 PM CDT Gender Identity Not on file Sexual Orientation Not on file documented as of this encounter Miscellaneous Notes * Cerner Conversion Note - Preston Hinds MD - 07/09/2019 9:28 PM CDT [facility] [place] [address] IVON MARTINEZ :1990 Visit Time:07/09/2019 Your Visit Summary Your Care Team Primary Provider: LIAN DONOVAN MD Secondary Provider: Your Diagnosis Abdominal pain, Abdominal pain Abdominal pain Medical Information You may obtain a copy of your Emergency Department visit from Medical Records by calling the hospital phone number listed above and asking to be directed to the Medical Records Department. If you had special tests, such as EKG???s or X-rays, the interpretation of your tests given to you by the Emergency Department Physician is a preliminary report. Some fractures and illnesses fail to show up on preliminary tests. These will be reviewed again and we will call you if there are any new suggestions. If your symptoms continue notify your physician. After you leave, you should follow the instructions provided. What to do next Follow-Up Appointments Follow Up with Follow-up with your surgeon tomorrow as planned. Return to the ED for any acute new concerns. When Within in AM Follow Up with ANGELLA MCDONOUGH When Within 2 to 3 days Where: [facility] [id number]- [facility] (1) Allergies No Known Allergies Immunizations This Visit No Immunizations Found Medications What How Much When Instructions Next Dose acetaminophen-hydrocodone ([place] 5 mg-325 mg oral tablet) 1 Tablet(s) Oral Every 4 Hours as needed for for pain acetaminophen-hydrocodone ([place] 7.5 mg-325 mg oral tablet) 1 Tablet(s) Oral Every 6 Hours as needed for for pain ondansetron (Zofran ODT 4 mg oral tablet, disintegrating) 1 Tablet(s) Oral Two Times A Day The home medications listed are only as accurate as the information you provided. Please continue taking all of your medications prescribed by your Primary Care Provider unless specifically told to change or discontinue the medication. Please direct any questions regarding your home medications to your Primary Care Provider. Take your medications faithfully. Do NOT skip [...] of unused and medications per pharmacy guidance. Test Results Laboratory or Other Results This Visit (last charted value for your 07/09/2019 visit) Hematology 07/09/2019 8:52 PM WBC: 6.2 K/uL -- Normal range between ( 4.5 and 10.5 ) RBC: 4.18 Million/uL -- Normal range between ( 3.93 and 5.22 ) Hct: 36.8 % -- Normal range between ( 34.1 and 44.9 ) Hgb: 12.7 g/dL -- Normal range between ( 11.2 and 15.7 ) Platelet Count: 236 K/uL -- Normal range between ( 163 and 369 ) MCH: 30.4 pg -- Normal range between ( 25.6 and 32.2 ) MCHC: 34.5 Gram/dL -- Normal range between ( 32.2 and 36.5 ) MCV: 88.0 fL -- Normal range between ( 79.0 and 94.8 ) Slide Review: No Eos %: 5.3 % -- Normal range between ( 0.0 and 7.0 ) Sandoval #: 0.44 K/uL -- Normal range between ( 0.16 and 1.00 ) Eos #: 0.33 x10(3)/uL -- Normal range between ( 0.00 and 0.80 ) Sandoval %: 7.1 % -- Normal range between ( 3.0 and 9.0 ) Baso %: 1.0 % -- Normal range between ( 0.0 and 1.5 ) Baso #: 0.06 x10(3)/uL -- Normal range between ( 0.00 and 0.20 ) RDW: 11.8 % -- Normal range between ( 11.7 and 14.9 ) Neut %: 51.6 % -- Normal range between ( 34.0 and 71.0 ) Neut #: 3.18 K/uL -- Normal range between ( 1.56 and 6.13 ) Lymph %: 34.7 % -- Normal range between ( 19.3 and 53.1 ) Lymph #: 2.14 x10(3)/uL -- Normal range between ( 1.00 and 3.90 ) MPV: 10.2 fL -- Normal range between ( 9.4 and 12.4 ) IG#: 0.02 x10(3)/uL -- Normal range between ( 0.00 and 0.05 ) IG%: 0.30 % -- Normal range between ( 0.00 and 0.60 ) General Chemistry 07/09/2019 8:52 PM Creatinine Level: 0.60 mg/dL -- Normal range between ( 0.55 and 1.02 ) Sodium Level: 139 mmol/L -- Normal range between ( 136 and 146 ) Potassium Level: 3.6 mmol/L -- Normal range between ( 3.5 and 5.1 ) Chloride Level: 108 mmol/L -- Normal range between ( 102 and 112 ) Carbon Dioxide Level: 25 mmol/L -- Normal range between ( 21 and 32 ) Anion Gap: 10 -- Normal range between ( 9 and 20 ) Bilirubin Total: 0.3 mg/dL -- Normal range between ( 0.2 and 1.2 ) A/G Ratio: 0.9 -- Normal range between ( 1.1 and 2.5 ) ALT: 36 Units/Liter -- Normal range between ( 13 and 56 ) AST: 19 Units/Liter -- Normal range between ( 5 and 37 ) Globulin: 3.6 Gram/dL -- Normal range between ( 1.5 and 4.5 ) Alk Phos: 70 Units/Liter -- Normal range between ( 27 and 136 ) Bun/Creatinine: 10.0 -- Normal range between ( 8.0 and 20.0 ) Calcium Level: 8.4 mg/dL -- Normal range between ( 8.4 and 10.1 ) eGFR : >60 mL/min/1.73m2 eGFR NonAfrican: >60 mL/min/1.73m2 Glucose Level: 102 mg/dL -- Normal range between ( 74 and 106 ) Blood Urea Nitrogen: 6 mg/dL -- Normal range between ( 7 and 22 ) Protein Total: 7.0 Gram/dL -- Normal range between ( 6.4 and 8.2 ) Albumin Level: 3.4 Gram/dL -- Normal range between ( 3.4 and 5.0 ) Lipase Level: 131 Units/Liter -- Normal range between ( 73 and 393 ) Education Materials Abdominal Pain, Adult Abdominal pain can be caused by many things. Often, abdominal pain is not serious and it gets better with no treatment or by being treated at home. However, sometimes abdominal pain is serious. Your health care provider will do a medical history and a physical exam to try to determine the cause of your abdominal pain. Follow these instructions at home: ??? Take [id number] and prescription medicines only as told by your health care provider. Do not take a laxative unless told by your health care provider. ??? Drink enough fluid to keep your urine clear or pale yellow. ??? Watch your condition for any changes. ??? Keep all follow-up visits as told by your health care provider. This is important. Contact a health care provider if: ??? Your abdominal pain changes or gets worse. ??? You are not hungry or you lose weight without trying. ??? You are constipated or have diarrhea for more than 2???3 days. ??? You have pain when you urinate or have a bowel movement. ??? Your abdominal pain wakes you up at night. ??? Your pain gets worse with meals, after eating, or with certain foods. ??? You are throwing up and cannot keep anything down. ??? You have a fever. Get help right away if: ??? Your pain does not go away as soon as your health care provider told you to expect. ??? You cannot stop throwing up. ??? Your pain is only in areas of the abdomen, such as the right side or the left lower portion of the abdomen. ??? You have bloody or black stools, or stools that look like tar. ??? You have severe pain, cramping, or bloating in your abdomen. ??? You have signs of dehydration, such as: ? Dark urine, very little urine, or no urine. ? Cracked lips. ? Dry mouth. ? Sunken eyes. ? Sleepiness. ? Weakness. This information is not intended to replace advice given to you by your health care provider. Make sure you discuss any questions you have with your health care provider. Document Released: 11/16/2005 Document Revised: 08/26/2016 Document Reviewed: 07/20/2016 [employer] Education Interactive Patient Education ?? 2019 [employer] Emergency Awareness and Preventative Care STROKE is [...] Assistance with quitting is available by contacting 6-328-JEQM-NOW. This is a free resource providing counseling, support, and referral. Or you may contact your personal physician. [employer] Suicide Prevention Lifeline: The National Suicide Prevention [...] and how to prevent infections, visit www.cdc.gov/sepsis. The examination and treatment you have received in the Emergency Department has been done to provide an appropriate evaluation and stabilizing treatment on an emergency basis only. Given the limited resources, it is not meant to be a substitute for complete medical care. The follow-up doctor you named will receive a copy of your records and all test reports. IT IS IMPORTANT THAT YOU SCHEDULE A FOLLOW-UP APPOINTMENT AND ARE RE-EVALUATED. You should report any new complaints, symptoms, or remaining problems at that time. IT IS IMPOSSIBLE FOR THE EMERGENCY DEPARTMENT TO RECOGNIZE AND TREAT ALL ELEMENTS OF INJURY OR ILLNESS IN A SINGLE VISIT. If you have been referred to a specialist physician, it means that we believe you may have a condition that requires the expertise of a specialist. These physicians work in partnership with the hospital and have agreed to see referred patients in their office for further evaluation. KEEP IN MIND THAT THE SPECIALIST HAS HIS/HER OWN OFFICE POLICIES WHICH MAY REQUIRE PROPER INSURANCE OR PAYMENT UP FRONT BEFORE THE SPECIALIST WILL SEE YOU. It is your responsibility to call the specialist physician to make an appointment. We do not have the ability to refer patients to specialists/physicians that work with specific insurance companies. Please be advised that all financial charges or billing practices are determined by that practice, not the hospital. If your insurance company requires that you see a specialist from their approved list, it is your responsibility to contact your insurance company to make those arrangements. It is also your responsibility to follow any other requirements of your insurance company necessary to obtain coverage for claims submitted. We will bill your insurance; however, you are responsible today for any co-pay amounts. You will receive a separate bill for any services you may have received including: emergency, radiology, or pathology physicians. Patient Name:MARTINEZIVON I have received this information and was given the opportunity to ask questions. Patient/Psychiatric Clinician Name: Patient/Psychiatric Clinician Signature: Relationship to Patient: Clinician/Hospital Psychiatric Clinician Signature: Please Provide a Telephone Number Where You Can Be Reached: Is it Permissible To Leave a Message? Date: Electronically signed by [facility] Conversion Dragger Merrill at 06/05/2022 6:39 PM CDT documented in this encounter Plan of Treatment Not on file documented as of this encounter Visit Diagnoses Not on filedocumented in this encounter
--- OUTSIDE RECORDS SUMMARY | 2024-01-11 19:05 | XMS_ITS | Encounter Summary ---
Author Organization [facility] [employer] Address [address] [place] [address] Care Team Providers Care Shower Maid Name Role Phone Unavailable Primary Care Provider Unavailabl e Encounter Details Date Type Department Care Team (Late st Contact Info) Description 07/09/2019 Transcribed Document [facility] [place] Medicine [facility] [place] [address] ProviderPreston MD [facility] [place], [place] [id number] 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 Tobacco Use Types Packs/Day Years Used Date Smoking Tobacco: Never Assessed Comments Unknown Sex and Gender Information Value Date Recorded Sex Assigned at Not on file Legal Sex Female 6:58 PM CDT Gender Identity Not on file Sexual Orientation Not on file documented as of this encounter Miscellaneous Notes * Cerner Conversion Note - Preston ProviderMD - 07/09/2019 7:32 PM CDT ED Assessment Entered On: 07/09/2019 20:45 EDT Performed On: 07/09/2019 20:43 EDT by Kerri Degroot Rn ED Quick Look Assessment Level of Consciousness : Alert, Awake Affect/Behavior : Appropriate, Calm, Cooperative Orientation : Oriented x 4 Skin Temperature : Warm Skin Description : Normal for ethnicity Kerri Degroot Rn - 07/09/2019 20:43 EDT ED General-Functional Assess Information Obtained From : Patient Communication Barrier : None Primary Language : Ghanaian Any Spiritual/Cultural Needs or Requests : No Currently in Unsafe Situation : No Kerri Degroot Rn - 07/09/2019 20:43 EDT Social Habits Smoking Status : Never (less than 100 in lifetime; none in last 30 days) Smokeless Tobacco Status : Never Desires Tobacco Cessation Calc : 0 Kerri Degroot Rn - 07/09/2019 20:43 EDT 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 (As Of: 07/09/2019 20:45:30 EDT) Cardiovascular ASMT, ED Cardiovascular Assessment WDL : Kerri Siddiqi Rn - 07/09/2019 20:43 EDT Respiratory Respiratory Assessment WDL : Kerri Siddiqi Rn - 07/09/2019 20:43 EDT Gastrointestinal ED Gastrointestinal Assessment WDL : WD with exceptions (Comment: pt c/o lower abd pain around umbilical area that radiates into groin. pt states this pain has been going on for about 1 month, but states that pain has worsened since monday. pt states that she has also had n/v/d and has also noticed some blood in stool as well. [Kerri Degroot Rn - 07/09/2019 20:45 EDT] ) Gastrointestinal Symptoms : Abdominal pain, Diarrhea, Nausea, Vomiting Kerri Degroot Rn - 07/09/2019 20:43 EDT Neurologic ASMT, ED Neurologic Assessment WDL : Kerri Siddiqi Rn - 07/09/2019 20:43 EDT documented in this encounter Plan of Treatment Not on file documented as of this encounter Visit Diagnoses Not on filedocumented in this encounter
--- OUTSIDE RECORDS SUMMARY | 2024-01-11 19:05 | XMS_ITS | Encounter Summary ---
Author Organization [employer] Address [address] [place] [address] Care Team Providers Care Wildlife Conservation Officer Name Role Phone Unavailable Primary Care Provider Unavailabl e Encounter Details Date Type Department Care Team (Late st Contact Info) Description 07/09/2019 Transcribed Document [facility] [place] Family Medicine [address] [place] [address] ProviderPreston MD [address] [place] [place], [place] [address] 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 Tobacco Use Types Packs/Day Years Used Date Smoking Tobacco: Never Assessed Comments Unknown Sex and Gender Information Value Date Recorded Sex Assigned at Not on file Legal Sex Female 6:58 PM CDT Gender Identity Not on file Sexual Orientation Not on file documented as of this encounter Miscellaneous Notes * Cerner Conversion Note - Historical ProviderMD - 07/09/2019 7:32 PM CDT [place] Suicide Severity Rating Scale (C-SSRS) Entered On: 07/09/2019 20:45 EDT Performed On: 07/09/2019 20:43 EDT by Kerri Degroot Rn [place] Suicide Severity Rating Scale (C-SSRS) CSSRS Past Month Wish to be : No CSSRS Past Month Suicidal Thoughts : No CSSRS Lifetime Suicide Behavior : No Suicide Severity Rating Score : 0 Suicide Severity Rating : No Additional Care Required at this time Kerri Degroot Rn - 07/09/2019 20:43 EDT documented in this encounter Plan of Treatment Not on file documented as of this encounter Visit Diagnoses Not on filedocumented in this encounter
--- OUTSIDE RECORDS SUMMARY | 2024-01-11 19:05 | XMS_ITS | Clinical Summary ---
Author Organization [facility] Address [address] [place] [address] Care Team Providers Care Nick Setter Name Role Phone Shaw, Joyce Lukasz MOORE Primary Care Provider + [phone] Allergies Active Allergy Reactions Criticality Noted Date Comments Amoxicillin Hives,Swelling High 09/03/2020 Amoxicillin-Pot Clavulanate Anaphylaxis High 07/22/2019 Hives, swollen lips. Bee Venom Anaphylaxis High 12/20/2017 Hydrocodone-Acetaminophen Swelling High 12/16/2022 Silver Rash Low 08/10/2023 Wasp Venom Protein Nausea,Swelling High 08/10/2023 Medications hydroCHLOROthiazi de (HYDRODiuril) 12.5 MG tablet Take 1 tablet (12.5 mg) by mouth 1 (one) time each day. Active metFORMIN (Glucophage) 1000 MG tablet Take 1 tablet (1,000 mg) by mouth 2 (two) times a day. Active Ozempic, 0.25 or 0.5 MG/DOSE, 2 MG/3ML solution pen-injector INJECT 0.5 MG WEEKLY SUBCUTANEOUSLY FOR DIABETES 09/04/19 24 Active lisinopril 20 MG tablet Take 1 tablet (20 mg) by mouth 1 (one) time each day. Active propranolol (Inderal) 20 MG tablet Take 1 tablet (20 mg) by mouth 2 (two) times a day. Active OneTouch Ultra Test test strip 09/19/19 24 Active venlafaxine XR (Effexor XR) 75 MG 24 hr capsule 1 (one) time each day at the same time. 11/29/19 24 Active cyclobenzaprine (Flexeril) 5 MG tablet Take 1 tablet (5 mg) by mouth 3 (three) times a day if needed for muscle spasms. 30 tablet 12/26/19 24 Active ondansetron ODT (Zofran-ODT) 4 MG disintegrating tablet Take 1 tablet (4 mg) by mouth every 6 (six) hours if needed for nausea or vomiting. 20 tablet 12/26/19 24 Active oxyCODONE (Roxicodone) 5 MG immediate release tablet Take 1 tablet (5 mg) by mouth every 4 (four) hours if needed for severe pain. 10 tablet 12/26/19 24 Active naloxone (Narcan) 4 mg/0.1 mL nasal spray 1. Give 1 spray in nostril for no/slow breathing or cannot wake after opioid use 2. Call 911 3. Repeat in other nostril if symptoms continue 1 each 12/26/19 24 Active hydrOXYzine HCl (Atarax) 25 MG tablet Take 1 tablet (25 mg) by mouth 3 (three) times a day. Active cariprazine (Vraylar) 3 MG capsule Take 1 capsule (3 mg) by mouth every night. 2023 Discontin ued(Enter ed in Error) lamoTRIgine (LaMICtal) 200 MG tablet Take 1 tablet (200 mg) by mouth 1 (one) time each day. 2023 Discontin ued(Enter ed in Error) metoclopramide (Reglan) 10 MG tablet Take 1 tablet (10 mg) by mouth 3 (three) times a day if needed (nausea). 20 tablet 09/19/19 24 2023 Discontin ued(Enter ed in Error) ondansetron ODT (Zofran-ODT) 4 MG disintegrating tablet Take 1 tablet (4 mg) by mouth every 8 (eight) hours if needed for nausea or vomiting. 20 tablet 09/19/19 24 2023 Discontin ued(Enter ed in Error) diclofenac (Voltaren) 50 MG EC tablet Take by mouth 3 (three) times a day. 10/25/19 24 2023 Discontin ued(Stop Taking at Discharge ) acetaminophen (Tylenol) 500 MG tablet Take 2 tablets (1,000 mg) by mouth every 6 (six) hours for 10 days. 80 tablet 12/26/19 24 2023 docusate sodium 100 MG capsule Take 100 mg by mouth 2 (two) times a day for 10 days. 10 capsule 12/26/19 24 2023 ibuprofen 800 MG tablet Take 1 tablet (800 mg) by mouth every 8 (eight) hours for 10 days. 30 tablet 12/26/19 24 2023 Active Problems Problem Noted Date Diagnosed Date Acute anxiety 09/22/2023 Acute viral syndrome 09/22/2023 Bloody discharge from right nipple 09/22/2023 Enlarged lymph nodes in armpit 09/22/2023 Class III obesity with body mass index (BMI) of 40.0 or higher 09/17/2023 Breast abscess 09/16/2023 Tobacco use disorder 09/11/2023 Bilateral fibrocystic breast changes 08/10/2023 Bilateral nipple discharge 08/10/2023 PTSD (post-traumatic stress disorder) 07/30/2018 Elevated hemoglobin A1c 07/30/2018 Resolved Problems Problem Noted Date Diagnosed Date Resolved Date Breast abscess of female 12/25/202306/2023 Atypical hyperplasia of breast 12/05/2023 12/26/2023 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 10/10/2023 12/26/2023 Encounters Date Type Department Care Team Description 12/25/2023 6:24 PM EST Anesthesia Event [facility] [address] [place] [address] Ananda Mcghee MD Lee, Audra R, B[facility], [facility] 12/25/2023 5:32 PM EST - 12/25/2023 7:12 PM EST Surgery [facility] [address] [place] [address] Giana Mays MD Right total mastectomy, flat closure [03613 (CPT??)] 12/25/2023 10:33 AM EST - 12/26/2023 12:51 PM EST Hospital Encounter [facility] [address] [place] [address] Giana Mays MD Atypical hyperplasia of breast Discharge Disposition: Home or Self Care 12/25/2023 Travel 12/05/2023 9:00 AM EDT Office Visit [facility] [address] [facility] [place] [address] Giana Mays MD Nipple discharge (Primary Dx) 12/05/2023 Orders Only [facility] [address] [place] [address] Giana Mays MD Atypical hyperplasia of breast (Primary Dx) 12/05/2023 Travel 11/30/2023 8:30 AM EDT - 11/30/2023 11:59 PM EDT Hospital Encounter [facility] [address] [facility] [address] [place] [address] Bloody discharge from left nipple Discharge Disposition: Home or Self Care 11/30/2023 Travel 11/30/2023 Telephone [facility] [address] [facility] [address] [place] [address] Giana Mays MD 11/13/2023 Orders Only [facility] [address] [address] Giana Mays MD Bloody discharge from left nipple (Primary Dx) 11/10/2023 Telephone [facility] [address] [facility] [address] [place] [address] Giana Mays MD 11/09/2023 Telephone [facility] [address] [facility] [address] [place] [address] Giana Mays MD 11/07/2023 Telephone [facility] [address] [facility] [address] [place] [address] Giana Mays MD 11/06/2023 10:00 AM EDT Clinical Support [address] [place] [address] Abby Haque RN 11/06/2023 Travel 11/01/2023 Telephone [facility] [address] [facility] [address] [place] [address] Giana Mays MD 10/24/2023 Telephone [facility] [address] [facility] [address] [place] [address] Giana Mays MD 10/19/2023 Telephone [facility] [address] [facility] [address] [place] [address] Giana Mays MD 10/16/2023 Telephone [facility] [address] [facility] [address] [place] [phone] Giana Mays MD from Last 3 Months Immunizations Name Administration Dates Next Due Hep A, Adult 01/31/2018 Hep B, Adolescent or Pediatric 01/29/2001,2000,07/10/2000 Influenza, injectable, quadr ivalent, preservative free 04/27/2023,01/31/2018 MMR 07/10/2000 Moderna COVID-19 Vaccine (Re d Cap) 12+ years 07/08/2020 Pfizer Covid-19 Vaccine 12y+ , You Protein, PF, Yeyo-Sucrose 04/27/2023 Pfizer-BioNTech COVID-19 Biv alent (Stephens Cap) 12+ years (yeyo-sucrose) 11/13/2021 Pfizer-BioNTech COVID-19 Vac cine (Purple Cap) 12+ 03/04/2020,02/17/2020 Family History Medical History Relation Name Comments Colon cancer Father Esophageal cancer Father Throat cancer Father Colon cancer Paternal Grandfather Breast cancer Paternal Grandmother Lung cancer Paternal Grandmother Anesthesia problems Neg Hx Relation Name Status Comments Father Alive Paternal Grandfather Paternal Grandmother 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 Tobacco Use Types Packs/Day Years Used Date Smoking Tobacco: Former Cigarettes 0.3 0.2 0 05/2023 - 08/2023 Smokeless Tobacco: Never Tobacco Cessation:Counseling Given: Not Answered Alcohol Use Standard Drinks/Week Comments Not Currently 0 (1 standard drink = 0.6 oz pur e alcohol) Humiliation, Afraid, Rape, and Kick questionnair e Answer Date Recorded Within the last year, have y ou been afraid of your partner or ex-partner? No 09/18/2023 Within the last year, have y ou been humiliated or emotionally abused in other ways by your partner or ex-partner? No Within the last year, have y ou been kicked, hit, slapped, or otherwise physically hurt by your partner or ex-partner? No 09/18/2023 Within the last year, have y ou been raped or forced to have any kind of sexual activity by your partner or ex-partner? No 09/18/2023 PHQ-2 Answer Date Recorded Patient Health Questionnaire-2 Score 4 12/05/2023 Hunger Vital Sign Answer Date Recorded Within the past 12 months, y ou worried that your food would run out before you got the money to buy more. Never true 09/18/19 24 Within the past 12 months, t he food you bought just didn't last and you didn't have money to get more. Never true 09/18/2023 PRAPARE - Transportation Answer Date Re corded In the past 12 months, has l ack of transportation kept you from medical appointments or from getting medications? No 08/21 In the past 12 months, has l ack of transportation kept you from meetings, work, or from getting things needed for daily living? No 09/18/2023 Housing Stability Vital Sign Answer Jaya e Recorded In the last 12 months, was t here a time when you were not able to pay the mortgage or rent on time? No 09/18/2023 In the last 12 months, how many places have you lived? 1 09/18/2023 In the last 12 months, was t here a time when you did not have a steady place to sleep or slept in a care home (including now)? No 09/18/2023 PHQ-9 Answer Date Recorded Patient Health Questionnaire-9 Score 14 12/05/2023 CAGE ASSESSMENT Answer Date Recorded Cage unable to access Not on file 09/16/2023 Cage max number of drinks Not on file 2023 Cage Beverages a week Not on file 09/16/2023 Have you ever felt you should CUT down on your d rinking? 0 09/16/2023 Have you been ANNOYED by people criticizing your drinking? 0 09/16/2023 Have you felt GUILTY about your drinking? 0 09/16/2023 Have you had a drink first t maurilio in the morning (EYE-SOLDERER) to steady your nerves or to get rid of a hangover? 0 09/16/2023 CAGE Questionnaire Score 0 024 Utilities Answer Date Recorded In the past 12 months has th e electric, gas, oil, or water company threatened to shut off services in your home? No 09/18/2023 Comments No Sex and Gender Information Value Date Recorded Sex Assigned at Not on file Legal Sex Female 7:54 PM EDT Gender Identity Not on file Sexual Orientation Not on file Last Filed Vital Signs Vital Sign Reading Time Taken Comments Blood Pressure 116/76 12/26/2023 11:31 AM EST Pulse 93 12/26/2023 11:31 AM EST Temperature 36.7 ??C (98.1 ??F) 12/26/2023 11:[address] Respiratory Rate 16 12/26/2023 11:31 AM EST Oxygen Saturation 94% 12/26/2023 11:31 AM EST Inhaled Oxygen Concentration - - Weight 131 kg (289 lb) 12/25/2023 12:55 PM EST Height 165.1 cm (5' 5 ) 12/25/2023 12:55 PM EST Body Mass Index 48.09 12/25/2023 12:55 PM EST Plan of Treatment Upcoming Encounters Date Type Department Care Team (Late st Contact Info) Description 01/12/2024 9:30 AM EST Office Visit [facility] [address] [place] [address] Sean Rod MD [address] [place] [address] 01/16/2024 9:30 AM EST Office Visit [facility] [address] [facility] [place] [address] Giana Mays MD [address] [facility] [address] [place] [address] 03/05/2024 8:00 AM EST Appointment [facility] [address] [facility] [address] [place] [address] 03/05/2024 9:00 AM EST Appointment [facility] [address] [facility] [address] [place] [address] 03/05/2024 10:00 AM EST Office Visit [facility] [address] [facility] [place] [address] Giana Mays MD [address] [facility] [address] [place] [address] Health Maintenance Due Date Last Done Comments [facility]-/Child/Adol SDOH Screenings 1988 [facility]-Pneumococcal Vaccine: Pediatrics (0 to 5 Years) and At-Risk Patients (6 to 64 Years) (1 of 2 - PCV) 1994 [facility]-Varicella Vaccines (1 of 2 - 13+ 2-dose series) 2001 [facility]-DTaP,Tdap,and Td Vaccines (1 - Tdap) 10/23/2007 [facility]-Zoster Vaccines (1 of 2) 10/23/2007 [id number] Vaccine (6 - season) 2023 04/27/2023, 11/13/2021, 07/08/2020, Additional history exists [facility]-Influenza Vaccine (#1) 2023 04/27/2023, [facility]- SDOH Screenings 03/20/2024 [facility]-Adult SDOH Screenings 03/20/2024 09/18/2023 [facility]-Diabetes: Hemoglobin A1C 09/16/2024 09/17/2023, 09/03/2020, 07/19/2019, Additional history exists [facility]-Depression Screening 12/04/2024 12/05/2023, 11/20 [facility]-RSV Vaccine: 60+ Years or (1 - 1-dose 75+ series) 10/23/2063 [facility]-Hepatitis B Vaccines Completed 001, 08/11/2000, 07/10/2000 [facility]-Hepatitis A Vaccines Aged Out 01/31/2018 No longer eligible based on patient's age to complete this topic [facility]-HIV Screening Completed 09/15/2023, , 09/03/2020, Additional history exists [facility]-Hepatitis C Screening Completed 09/15/2023, [facility]-Obesity Intervention Completed 024, 12/05/2023, 10/06/2023, Additional history exists [facility]-HIB Vaccines Aged Out No longer e ligible based on patient's age to complete this topic [facility]-HPV Vaccines Aged Out No longer e ligible based on patient's age to complete this topic [facility]-IPV Vaccines Aged Out No longer e ligible based on patient's age to complete this topic [facility]-Rotavirus Vaccines Aged Out No lo nger eligible based on patient's age to complete this topic Procedures Procedure Name Priority Date/Time Associated Diagnosis Comments POCT GLUCOSE METER UNSOLICITED RESULTS Routine 12/26/2023 11:32 AM EST POCT GLUCOSE METER UNSOLICITED RESULTS Routine 12/26/2023 8:11 AM EST POCT GLUCOSE METER UNSOLICITED RESULTS Routine 12/26/2023 1:10 AM EST POCT GLUCOSE METER UNSOLICITED RESULTS Routine 12/25/2023 8:06 PM EST SURGICAL PATHOLOGY EXAM Routine 12/25/19 7:06 PM EST Atypical hyperplasia of breast PB ANESTHESIA PLACEHOLDER Routine 12/25/2023 6:32 PM EST GA AN ELECTIVE ENDOTRACHEAL AIRWAY Routine 12/25/2023 6:32 PM EST GA MASTECTOMY, SIMPLE, COMPLETE 12/25/2023 6:14 PM EST Atypical hyperplasia of breast POCT GLUCOSE METER UNSOLICITED RESULTS Routine 12/25/2023 2:57 PM EST ECG ADULT Routine 12/25/2023 1:19 PM EST POCT GLUCOSE METER UNSOLICITED RESULTS Routine 12/25/2023 12:57 PM EST US BREAST LIMITED LEFT Routine 9:11 AM EDT Bloody discharge from left nipple NICOTINE AND COTININE METABOLITE, SERUM, QUANTITATIVE Routine 11/06/2023 9:59 AM EDT Tobacco use disorder HEMOGLOBIN A1C Routine 09/17/2023 4:59 AM EDT HEPATITIS C ANTIBODY - ED W/REFLEX TO HCV QUANT PCR STAT 09/15/2023 9:42 PM EDT ED PROTOCOL HIV 1/2 ANTIBODY/ANTIGEN SCREEN W/REFLEX TO HIV 1/2 ANTIBODY DIFFERENTIATION STAT 09/15/2023 9:42 PM EDT from Last 3 Months or Most Recently Relevant to Health Maintenance Results * (ABNORMAL) POCT glucose meter (12/26/2023 11:32 AM EST) Only the most recent of6 resultswithin the time period is included. POCT Glucose 195(H) 74 - 99 mg/dL 12/26/2023 11:34 AM EST [email or web address] Comment:Accuracy of a glucos e result obtained from a capillary whole blood specimen relies upon adequate, non-compromised capillary blood flow. If the capillary glucose result is not consistent with the patient's clinical signs and symptoms, glucose testing should be repeated with either an arterial or venous sample on the glucometer or sent to the main labortory for testing. Comment 12/26/2023 11:34 AM EST [email or web address] Mailroom Manager ID Joyce Wnyn 12/26/2023 11:34 AM EST [email or web address] Device ID [id number] 12/26/2023 11:34 AM EST [facility] Specimen Type POC Capillary 12/26/2023 11:34 AM EST [facility] Blood Capillary blood specimen / Unknown 12/26/2023 11:32 AM EST 12/26/2023 11:34 AM EST Giana Mays MD LAB POINT OF CARE TE ST DOCKED DEVICE UNSOLICITED RESULTS Final Result Performing Organization Address City/State/[facility] Co de Phone Number [facility] [address] [place] [address] * Surgical Pathology Exam (12/25/2023 7:06 PM EST) Case Report Surgical Pathology ?Case: [id number] ? Authorizing Provider: ??Giana Mays MD ?Collected: ? 12/25/2023 1906 ? Ordering Location: ? [facility] ? Received: ?12/26/2023 0744 ? Pathologist: ? Calixto Bedoya, DO ? Specimen: ?Breast, Right, Right Breast - short stitch superior long stitch lateral ? 12/27/2023 2:50 PM EST [facility] Final Diagnosis A. 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 RIGHT BREAST - SHORT STITCH SUPERIOR LONG STITCH LATERAL The specimen is received fresh and placed in formalin, labeled ? right breast? , and consists of a 1102.0 g, 23.1 (medial to lateral) by 11.1 (superior to inferior) by 6.6 cm (anterior to posterior) total mastectomy with grossly unremarkable skin ellipse and amaya-pink everted nipple (4.2 x 4.1 cm). The anterior superior surface is inked blue, the anterior inferior surface is inked green, the posterior surface is inked black. Upon sectioning, subjacent to the nipple, there is a 5.2 (medial to lateral) by 3.1 (superior to inferior) by 2.5 cm (anterior to posterior) amaya-yellow, firm, , ill-defined, and necrotic area. This area is 3.5 cm from the nearest posterior margin, and 4.1 cm from the nearest anterior inferior margin. No discrete masses are identified. The remaining cut surface is 90% amaya-yellow lobulated adipose tissue, and 10% amaya-white fibromembranous tissue. Central Supply Supervisor sections are submitted as follows: A1: Nearest posterior margin A2: Nearest anterior margin A3: Necrotic area to nipple A4-A6: Central Supply Supervisor area of necrosis, submitted medial to lateral A7-A8: Upper inner quadrant A9-A10: Upper outer quadrant A11-A12: Lower inner quadrant A13-A14: Lower outer quadrant Cold Time: 2h 10m Mar Rosenthal 12/27/2023 2:50 PM EST [facility] Note: A resident was involved in the service. I attest I examined the relevant preparations for the specimens and confirmed the diagnosis or interpretation. 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 [address] [place] [address] * GA AN ELECTIVE ENDOTRACHEAL AIRWAY, PB ANESTHESIA PLACEHOLDER (12/25/2023 6:32 PM EST) Narrative Donaldo Cramer CRNA, DNP - 12/25/2023 6:32 PM EST Donaldo Cramer CRNA, DNP ? 12/25/2023 ??6:49 PM Airway Date/Time: 12/25/2023 6:32 PM Urgency: elective Airway not difficult General Information and Staff Patient location during procedure: OR BURNER HAND: Donaldo Cramer CRNA, DNP Performed: SILVA Indications and Patient Condition Indications for airway management: anesthesia Spontaneous Ventilation: absent Preoxygenated: yes Patient position: sniffing Mask difficulty assessment: 2 - vent by mask + OA or adjuvant +/- NMBA Final Airway Details Final airway type: endotracheal airway Successful airway: ETT Cuffed: yes Successful intubation technique: direct laryngoscopy Facilitating devices/methods: intubating stylet Endotracheal tube insertion site: oral Blade: Radha Blade size: #3 ETT size (mm): 7.0 Cormack-Lehane Classification: grade I - full view of glottis Placement verified by: chest auscultation and capnometry Measured from: lips Number of attempts at approach: 1 Additional Comments Atraumatic. No change to dentition. us Donaldo Cramer CRNA, DNP ANESTHESIA ORDERABLES Fin al Result * ECG Adult (12/25/2023 1:19 PM EST) EKG DIAGNOSIS CLASS Abnormal MUSE ECG Ventricular Rate 86 BPM MUSE ECG Atrial Rate 86 BPM MUSE ECG GA Interval 146 ms MUSE ECG QRSD Interval 86 ms MUSE ECG QT Interval 378 ms MUSE ECG QTC Interval 452 ms MUSE ECG P Mobile 29 degrees MUSE ECG R Mobile 23 degrees MUSE ECG T Wave Mobile 2 degrees MUSE ECG Diagnosis Normal sinus rhythm MUSE ECG Diagnosis Possible Left atrial enlargement MUSE ECG Diagnosis Inferior infarct , age undetermined MUSE ECG Diagnosis Abnormal ECG MUSE ECG Diagnosis MUSE ECG Diagnosis Confirmed by Ismael Salas ([id number]) on 12/25/2023 4:18:05 PM MUSE ECG 12/25/2023 1:19 PM EST 12/25/2023 4:18 PM EST us Chelsi Murrell MD ECG ORDERABLES Final Result MUSE ECG * US Breast Limited Left (11/30/2023 9:11 AM EDT) Anatomical Region Laterality Modality Breast Left Ultrasound Impressions 11/30/2023 10:22 AM EDT BI-RADS: BI-RADS 1, Negative. RECOMMENDATIONS: Clinical Correlation and Management . Consider breast MRI if left breast bloody nipple discharge persists. Bilateral Recommendations: Medical/Surgical follow up for right breast. CRITICAL RESULT: No. COMMUNICATION: The results and recommendations were discussed with the patient and a printed lay language version of the imaging report was given to the patient at the time of the visit. Drafted by Alma Merchant MD on 11/30/2023 10:09 AM Final report signed by Alma Merchant MD on 11/30/2023 10:22 AM Narrative 11/30/2023 10:22 AM EDT CLINICAL INDICATION: Patient presents for left breast bloody nipple discharge which seems more prominent in the last 6 weeks and has been present since April 2022. Patient scheduled for right mastectomy in December 2023. History of SMOLD (squamous metaplasia of lactiferous ducts). TECHNIQUE: Multiplanar, stephens scale directed ultrasound of the left breast with limited Doppler vascular ultrasound was performed. Elastography was not performed. COMPARISON: 10/10/2023 FINDINGS: Focused ultrasound of the left retroareolar region demonstrates normal breast parenchyma without suspicious cystic or solid mass. No suspicious cystic or solid mass. BI-RADS 1 No spontaneous nipple discharge was noted during the ultrasound. Procedure Note Alma Merchant MD - 11/30/2023 CLINICAL INDICATION: Patient presents for left breast bloody nipple discharge which seems moreprominent in the last 6 weeks and has been present since April 2022. Patient scheduled for right mastectomy in December 2023. History of SMOLD(squamous metaplasia of lactiferous ducts). TECHNIQUE: Multiplanar, stephens scale directed ultrasound of the left breast withlimited Doppler vascular ultrasound was performed. Elastography was notperformed. COMPARISON: 10/10/2023 FINDINGS: Focused ultrasound of the left retroareolar region demonstrates normalbreast parenchyma without suspicious cystic or solid mass. No suspiciouscystic or solid mass. BI-RADS 1 No spontaneous nipple discharge was noted during the ultrasound. IMPRESSION: BI-RADS: BI-RADS 1, Negative. RECOMMENDATIONS: Clinical Correlation and Management . Consider breast MRIif left breast bloody nipple discharge persists. Bilateral Recommendations: Medical/Surgical follow up for right breast. CRITICAL RESULT: No. COMMUNICATION: The results and recommendations were discussed with the patient and aprinted lay language version of the imaging report was given to thepatient at the time of the visit. Drafted by Alma Merchant MD on 11/30/2023 10:09 AM Final report signed by Alma Merchant MD on 11/30/2023 10:22 AM Giana Mays MD IMG BI PROCEDURES Final Resu lt * Nicotine and Metabolites, Serum or Plasma, Quantitative (11/06/2023 9:59 AM EDT) NICOTINE <5 <5 ng/mL 11/10/2023 10:14 AM EDT [facility] Cotinine <5 <5 ng/mL 11/10/2023 10:14 AM EDT [facility] Blood Venous blood specimen / Unknown Venipuncture / Unknown 11/06/2023 9:59 AM EDT 11/06/2023 10:07 AM EDT Narrative [facility] - 11/10/2023 10:14 AM EDT Testing performed by LC-MS/MS at the [facility] Special Chemistry/Toxicology [facility]. This test was developed and its performance characteristics determined by [facility]. ??This assay has not been cleared by the FDA. ??The laboratory is regulated under CLIA as qualified to perform high-complexity testing. This test is used for clinical purposes. Giana Mays MD LAB BLOOD ORDERABLES Final R esult [facility] [address] [place] [address] * (ABNORMAL) Hemoglobin A1c (09/17/2023 4:59 AM EDT) Hemoglobin A1c 6.3(H) <5.7 % 09/17/2023 5:53 AM EDT [facility] Blood Venous blood specimen / Unknown Venipuncture / Unknown 09/17/2023 4:59 AM EDT 09/17/2023 5:43 AM EDT Narrative [facility] - 09/17/2023 5:53 AM EDT HA1C Interpretive Data: Diagnosis of Diabetes: Diabetic > or = 6.5% Pre-diabetic 5.7 to 6.4% Non-diabetic < or = 5.6% Glycemic Targets for Type I and Type II Diabetics: Non- Adults <7.0% Adults <6.0% Children and Adolescents <7.5% Source: ??[place] [employer]. Standards of medical care in diabetes,2017. Diabetes Care.2017:40 (suppl 1):S1-S135. HbA1c assay performed by an ion-exchange chromatography method that is certified traceable to the DCCT. us Lionel Boss MD LAB BLOOD ORDERABLES Final Result Performing Organization Address City/[facility]/ZIP Co de Phone Number HEALTHCARE [facility] [address] [place] [address] * Hepatitis C Antibody - ED (09/15/2023 9:42 PM EDT) Hepatitis C Antibody Negative Negative 09/15/2023 10:48 PM EDT [facility] Blood Venous blood specimen / Unknown Venipuncture / Unknown 09/15/2023 9:42 PM EDT 09/15/2023 9:55 PM EDT us Tomi Aguirre MD LAB BLOOD ORDERABLES Final Re sult [facility] [address] [place] [address] from Last 3 Months or Most Recently Relevant to Health Maintenance [place] [address] [address] [place] [address] MEDICAID Advance Directives * Full Code (Latest Code Status on File) Date Activated Date Inactivated Comments 12/25/2023 7:53 PM 12/26/2023 2:56 PM Question Answer Comments Patient has decision-making capacity? Yes * Full Code Date Activated Date Inactivated Comments 09/16/2023 3:14 AM 09/19/2023 12:18 PM Question Answer Comments Patient has decision-making capacity? Yes Care Teams Nick Setter Relationship Specialty Start Date End Date Joyce Shaw APRN [address] [place] [address] PCP - General 09/11/23
--- OUTSIDE RECORDS SUMMARY | 2024-01-11 19:05 | XMS_ITS | Encounter Summary ---
Author Organization [employer] Address [address] [place] [address] Care Team Providers Care Graphic Arts Technician Name Role Phone Unavailable Primary Care Provider Unavailabl e Encounter Details Date Type Department Care Team (Late st Contact Info) Description 07/09/2019 Transcribed Document [facility] [place] [facility] [place] [address] Preston Hinds MD [address] [place] [address] 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 Tobacco Use Types Packs/Day Years Used Date Smoking Tobacco: Never Assessed Comments Unknown Sex and Gender Information Value Date Recorded Sex Assigned at Not on file Legal Sex Female 6:58 PM CDT Gender Identity Not on file Sexual Orientation Not on file documented as of this encounter Miscellaneous Notes * Cerner Conversion Note - Preston Hinds MD - 07/09/2019 9:38 PM CDT [facility] [place] [address] IVON MARTINEZ :1990 Visit Time:07/09/2019 [...] 2 to 3 days Where: [facility] [address]- [facility] (1) Allergies No Known Allergies Immunizations This Visit No Immunizations Found Medications What How Much When Instructions Next Dose acetaminophen-hydrocodone ([place] 5 mg-325 mg oral tablet) 1 Tablet(s) Oral Every 4 Hours as needed for for pain acetaminophen-hydrocodone ([place] 7.5 mg-325 mg oral tablet) 1 Tablet(s) [...] range between ( 0.0 and 7.0 ) [place] #: 0.44 K/uL -- Normal range between ( 0.16 and 1.00 ) [place] #: 0.33 x10(3)/uL -- Normal range between ( 0.00 and 0.80 ) [place] %: 7.1 % -- Normal range between [...] Follow these instructions at home: ??? Take [id number] and prescription medicines only as told by [...] 11/16/2005 Document Revised: 08/26/2016 Document Reviewed: 07/20/2016 [employer] Interactive Patient Education ?? 2019 [employer] Emergency Awareness and Preventative Care STROKE [...] Assistance with quitting is available by contacting 3-587-FYIM-NOW. This is a free resource providing counseling, support, and referral. Or you may contact your personal physician. [place] Suicide Prevention Lifeline: The National Suicide Prevention [...] was given the opportunity to ask questions. Patient/Eyeglass Lens Grinder Name: Patient/Eyeglass Lens Grinder Signature: Relationship to Patient: Clinician/Hospital Eyeglass Lens Grinder Signature: Please Provide a Telephone Number Where You Can Be Reached: Is it Permissible To Leave a Message? Date: Electronically signed by [facility] Conversion Scrap Collector Merrill at 06/05/2022 6:32 PM CDT documented in this encounter Plan of Treatment Not on file documented as of this encounter Visit Diagnoses Not on filedocumented in this encounter
--- OUTSIDE RECORDS SUMMARY | 2024-01-11 19:05 | XMS_ITS | Encounter Summary ---
Author Organization [employer] Address [address] [place] [address] Care Team Providers Care Physician Support Coordinator Name Role Phone Unavailable Primary Care Provider Unavailabl e Encounter Details Date Type Department Care Team (Late st Contact Info) Description 07/09/2019 Transcribed Document [facility] [place] [facility] [place] [address] ProviderPreston MD [facility] [place] [id number] 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 Tobacco Use Types Packs/Day Years [...] ProviderMD - 07/09/2019 7:32 PM CDT ED Triage Entered On: 07/09/2019 20:02 EDT Performed On: 07/09/2019 19:59 EDT by Mabel Rondon RN ED Triage Across the Room Chief Complaint : pain at umbilicus radiating around side into lower right back; nausea, vomiting, diarrhea, and states some blood noted in stool; seen here yesterday for same Triage Date/Time : 07/09/2019 19:59 EDT Mabel Rondon RN - 07/09/2019 19:59 EDT DCP GENERIC CODE Tracking Acuity : 3 - Urgent Tracking Group : [facility] ED Mabel Rondon RN - 07/09/2019 19:59 EDT Mode of Arrival : Ambulatory Transported to ED by : Private vehicle To Room Via : Ambulate Accompanied By : Unaccompanied ED Vital Signs : Document Height & Weight : Document ED Allergies : Document ED Reason for Visit : Document Mabel Rondon RN - 07/09/2019 19:59 EDT Infectious Disease History Has the patient ever been tested for COVID-19? : No, Patient stated COVID19 Screening : No Experiencing Infectious Disease Symptoms : No symptoms Physical contact outside [place] in the last 30 days : No Infectious Disease Symptoms Score : 0 Infectious Disease History : Chicken pox/Shingles, Influenza Tuberculosis Symptoms : None Mabel Rondon RN - 07/09/2019 19:59 EDT Vital Signs ED Temperature Source : Temporal artery scanning Temperature Mode : Fahrenheit Temperature, Fahrenheit : 97.6 Deg F Clinical Temperature, C : 36.4 Deg C Peripheral Pulse Rate : 100 bpm Respiratory Rate : 18 Breaths/Min Blood Pressure Location : Arm, right lower Blood Pressure Source : Non-Invasive BP Device Systolic Blood Pressure : 142 mmHg (HI) Diastolic Blood Pressure : 92 mmHg (HI) Oxygen Saturation : 96 % Mabel Rondon RN - 07/09/2019 19:59 EDT Allergy (As Of: 07/09/2019 20:02:44 EDT) Allergies (Active) No Known Allergies Estimated Onset Date: Unspecified ; Created By: VIRGINIA GOLDSTEIN RN; Reaction Status: Active ; Category: Drug ; Substance: No Known Allergies ; Type: Allergy ; Updated By: VIRGINIA GOLDSTEIN RN; Reviewed Date: 07/09/2019 20:00 EDT Diagnosis Control ED (As Of: 07/09/2019 20:02:44 EDT) Diagnoses(Active) Abdominal pain Date: 07/09/2019 ; Diagnosis Type: Reason For Visit ; Confirmation: Complaint of ; Clinical Dx: Abdominal pain ; Classification: Medical ; Clinical Service: Non-Specified ; Code: PNED ; Probability: 0 ; Diagnosis Code: [id number] ED Height and Weight Height Source : Stated Height Entry Format : [place] Height, Feet : 5 ft(Converted to: 152 cm, 60 Inch) Height, Inches : 5.5 Inch(Converted to: 0 ft 6 Inch, 13.97 cm) Clinical Height : 166.37 cm Weight Source, ED : Critical estimated dosing weight Weight Entry Format : [place] Weight, Pounds : 303 lb Clinical Dosing Weight : 137.73 kg Body Surface Area (BSA) : 2.38 m2 Body Mass Index : 49.8 kg/m2 (>HHI) [place] Body Weight (IBW) : 57.73 kg Mabel Rondon RN - 07/09/2019 19:59 EDT documented in this encounter Plan of Treatment Not on file documented as of this encounter Visit Diagnoses Not on filedocumented in this encounter
--- OUTSIDE RECORDS SUMMARY | 2024-01-11 19:05 | XMS_ITS | Encounter Summary ---
Author Organization [employer] Address [address] [place] [address] Care Team Providers Care System Administration Advisor Name Role Phone Unavailable Primary Care Provider Unavailabl e Encounter Details Date Type Department Care Team (Late st Contact Info) Description 07/11/2019 Transcribed Document [facility] [place] [facility] [place] [address] ProviderPreston MD [address] [place], [place] [address] 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 Tobacco Use Types Packs/Day Years Used Date Smoking Tobacco: Never Assessed Comments Unknown Sex and Gender Information Value Date Recorded Sex Assigned at Not on file Legal Sex Female 6:58 PM CDT Gender Identity Not on file Sexual Orientation Not on file documented as of this encounter Miscellaneous Notes * Cerner Conversion Note - Preston ProviderMD - 07/11/2019 3:32 PM CDT PAT Adult Entered On: 07/11/2019 15:36 EDT Performed On: 07/11/2019 15:32 EDT by Martha Singh RN Health Histories Smoking Status : Never (less than 100 in lifetime; none in last 30 days) Smokeless Tobacco Status : Never Martha Singh RN - 07/11/2019 15:32 EDT 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 (As Of: 07/11/2019 15:36:07 EDT) Tobacco: Never (less than 100 in lifetime) Smoking Status. (Last Updated: 07/11/2019 15:33:33 EDT by Martha Singh RN) Alcohol: Alcohol Use Frequency Rarely. (Last Updated: 07/11/2019 15:33:44 EDT by Martha Singh, RN) Substance Abuse: Drug Use Hx: No. [...] Chicken pox/Shingles, Influenza Tuberculosis Symptoms : None Martha Singh RN - 07/11/2019 15:32 EDT Anesthesia/Transfusion History Family History of Anesthesia Reaction : No prior transfusion(s) Transfusion History : Prior anesthesia without reaction Family History of Anesthesia Reaction : None Martha Singh RN - 07/11/2019 15:32 EDT Advance Directive Patient has Advance Directive *Q : No, patient refuses Advance Directive information Martha Singh RN - 07/11/2019 15:32 EDT Bureau Suicide Severity Rating Scale (C-SSRS) CSSRS Past Month Wish to be : No CSSRS Past Month Suicidal Thoughts : No CSSRS Lifetime Suicide Behavior : No Suicide Severity Rating Score : 0 Suicide Severity Rating : No Additional Care Required at this time Martha Singh RN - 07/11/2019 15:32 EDT Psychosocial History Currently in Unsafe Situation : No Martha Singh RN - 07/11/2019 15:32 EDT General Info Support Person/Pt Rep Name : Tawny Bernstein ()Mom) [phone] Want Family/Rep/Phys Notified of Admit : No Emergency Contact #1 : x Emergency Contact #1 Phone Number : x Emergency Contact #1 Relationship : x Emergency Contact #2 : x Emergency Contact #2 Phone Number : x Emergency Contact #2 Relationship : x Chief Complaint : x Primary Language : Serbian Communication Barrier : None Martha Singh RN - 07/11/2019 15:32 EDT Edmundo Scale Edmundo Sensory Perception : No impairment Edmundo Moisture : Rarely moist Edmundo Activity : Walks occasionally Edmundo Mobility : No limitation Edmundo Nutrition : Adequate Edmundo Friction and Shear : No apparent problem Edmundo Score : 21 Martha Singh RN - 07/11/2019 15:32 EDT Sleep Apnea Risk Assmt Hx of Obstructive Sleep Apnea Diagnosis : No Snore Loudly : No Tired, Fatigued, or Sleepy During Day : No Observed Stopping Breathing During Sleep : No Have/Are Being Treated for Hypertension : No Age over 50 Years Old : No Gender Male : No Martha Singh RN - 07/11/2019 15:32 EDT documented in this encounter Plan of Treatment Not on file documented as of this encounter Visit Diagnoses Not on filedocumented in this encounter
--- OUTSIDE RECORDS SUMMARY | 2024-01-11 19:05 | XMS_ITS | Encounter Summary ---
Author Organization [employer] Address [address] [place] [address] Care Team Providers Care Track Repairer Name Role Phone Unavailable Primary Care Provider Unavailabl e Encounter Details Date Type Department Care Team (Late st Contact Info) Description 07/08/2019 Transcribed Document [facility] [place] [facility] [place] [address] ProviderPreston MD [facility] [place], [place] [address] 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 Tobacco Use Types Packs/Day Years Used Date Smoking Tobacco: Never Assessed Comments Unknown Sex and Gender Information Value Date Recorded Sex Assigned at Not on file Legal Sex Female 6:58 PM CDT Gender Identity Not on file Sexual Orientation Not on file documented as of this encounter Miscellaneous Notes * Cerner Conversion Note - Historical ProviderMD - 07/08/2019 4:34 PM CDT Electronically signed by [facility] Conversion Lease Purchase Driver Cerner at 06/05/2022 6:44 PM CDT documented in this encounter Plan of Treatment Not on file documented as of this encounter Visit Diagnoses Not on filedocumented in this encounter
--- OUTSIDE RECORDS SUMMARY | 2024-01-11 19:05 | XMS_ITS | Encounter Summary ---
Author Organization [employer] Address [address] [place] [address] Care Team Providers Care Corporate Manager Name Role Phone Unavailable Primary Care Provider Unavailabl e Encounter Details Date Type Department Care Team (Late st Contact Info) Description 07/08/2019 Transcribed Document [facility] [place] [facility] [place] [address] ProviderPreston MD [facility] [place] [id number] 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 Tobacco Use Types Packs/Day Years Used Date Smoking Tobacco: Never Assessed Comments Unknown Sex and Gender Information Value Date Recorded Sex Assigned at Not on file Legal Sex Female 6:58 PM CDT Gender Identity Not on file Sexual Orientation Not on file documented as of this encounter Miscellaneous Notes * Cerner Conversion Note - Preston ProviderMD - 07/08/2019 1:29 PM CDT ED Assessment Entered On: 07/08/2019 13:48 EDT Performed On: 07/08/2019 13:47 EDT by IVON LOGAN RN ED Quick Look Assessment Level of Consciousness : Alert, Awake Affect/Behavior : Appropriate, Calm, Cooperative Orientation : Oriented x 4 Skin Temperature : Warm Skin Description : Normal for ethnicity, Dry IVON LOGAN RN - 07/08/2019 13:47 EDT ED General-Functional Assess Information Obtained From : Patient Communication Barrier : None Primary Language : Gambian Any Spiritual/Cultural Needs or Requests : No Currently in Unsafe Situation : No IVON LOGAN RN - 07/08/2019 13:47 EDT Social Habits Smoking Status : Never (less than 100 in lifetime; none in last 30 days) Smokeless Tobacco Status : Never Desires Tobacco Cessation Calc : 0 IVON LOGAN RN - 07/08/2019 13:47 EDT 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 (As Of: 07/08/2019 13:48:56 EDT) Gastrointestinal ED Gastrointestinal Assessment WDL : WDL with exceptions Gastrointestinal Symptoms : Diarrhea, Nausea, Vomiting Frequency of Vomiting : 2 Abdomen Description : Tender Frequency of Diarrhea : 2 IVON LOGAN RN - 07/08/2019 13:47 EDT Bowel Sounds Bowel Sounds All Quadrants : Active LLQ : Active LUQ : Active RLQ : Active RUQ : Active IVON LOGAN RN - 07/08/2019 13:47 EDT Abdomen Palpation : Tender Abdominal Tenderness Location : LUQ, RUQ IVON LOGAN RN - 07/08/2019 13:47 EDT documented in this encounter Plan of Treatment Not on file documented as of this encounter Visit Diagnoses Not on filedocumented in this encounter
--- OUTSIDE RECORDS SUMMARY | 2024-01-11 19:05 | XMS_ITS | Encounter Summary ---
Author Organization [employer] Address [address] [place] [address] Care Team Providers Care Farm Loan Representative Name Role Phone Unavailable Primary Care Provider Unavailabl e Encounter Details Date Type Department Care Team (Late st Contact Info) Description 07/08/2019 Transcribed Document [facility] [place] Family Medicine [facility] [place] [address] Preston Hinds MD [facility] [place], [place] [id number] 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 Tobacco Use Types Packs/Day Years Used Date Smoking Tobacco: Never Assessed Comments Unknown Sex and Gender Information Value Date Recorded Sex Assigned at Not on file Legal Sex Female 6:58 PM CDT Gender Identity Not on file Sexual Orientation Not on file documented as of this encounter Miscellaneous Notes * Cerner Conversion Note - Preston ProviderMD - 07/08/2019 3:20 PM CDT Patient: IVON MARTINEZ Age: 28 years Sex: Female : 1990 Associated Diagnoses: Chronic abdominal pain; Nausea vomiting and diarrhea Author: BLANCA JUAREZ MD Basic Information Additional information: Chief Complaint from Nursing Triage Note : Chief Complaint 07/08/2019 13:36 EDT Chief Complaint Right sided lower abdominal pain, nausea, diarrhea, vomiting X2 days. Appt with Dr. Carvalho on MON regarding her appendix to be removed . History of Present Illness 28-year-old female presenting to the emergency department with right lower abdominal pain. This appears to be chronic in nature. Patient was recently admitted to [facility] for similar symptoms. She is set up to see her general surgeon in 48 hours for evaluation and nonemergent appendectomy. Patient states that she ran out of her pain medications and her pain is continuing to worse units in the right lower quadrant. Dull in nature. Nonradiating. She is also having some nausea vomiting diarrhea. Denies any blood. She is not having any fevers or chills. No dysuria. Last menstrual cycle was normal. No vaginal discharge. She denies any chest pain or shortness of breath. No fevers or chills. No headache or change in vision. Review of Systems Constitutional symptoms: No fever, Skin symptoms: No abrasions, Eye symptoms: Vision unchanged. Respiratory symptoms: No shortness of breath, no cough. Cardiovascular symptoms: No chest pain, Gastrointestinal symptoms: Abdominal pain, nausea, vomiting, diarrhea. Genitourinary symptoms: No dysuria, Musculoskeletal symptoms: No Muscle pain, Neurologic symptoms: No headache, no dizziness. Psychiatric symptoms: No anxiety, Health Status Allergies: Allergic Reactions (Selected) No Known Allergies. Medications: (Selected) Inpatient Medications Ordered Normal Saline Flush: 10 mL, IV Push, See Comment Prescriptions Prescribed [place] 5 mg-325 mg oral tablet: 1 Tab, Oral, Q4H, PRN: for pain, 24 Tab, 0 Refill(s). Past Medical/ Family/ 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 Surgical history: section ([id number]). Cholecystectomy ([id number]). D&C - Dilatation and curettage ([id number]). Tubal ligation ([id number]). Tonsillectomy ([id number]).. Family history: No family history items have been selected or recorded.. Social history: Social & Psychosocial Habits No Data Available . Problem list: No qualifying data available . Physical Examination Vital Signs Vital Signs/Vital Measures 07/08/2019 13:36 EDT Systolic Blood Pressure 156 mmHg HI Diastolic Blood Pressure 116 mmHg HI Temperature Source Oral Temperature Mode Fahrenheit Temperature, Fahrenheit 97.8 Deg F Clinical Temperature, C 36.6 Deg C Peripheral Pulse Rate 108 bpm HI Respiratory Rate 16 Breaths/Min Oxygen Saturation 98 % Oxygen Therapy Mode Room air . General: Alert, no acute distress. Skin: Warm, no rash. Cardiovascular: No murmur, Normal peripheral perfusion. Respiratory: Lungs are clear to auscultation, breath sounds are equal. Gastrointestinal: Soft, Tenderness: Mild, right lower quadrant, Guarding: Negative, Rebound: Negative, Bowel sounds: Normal, Mass: Negative, Signs: None. Back: Nontender, Normal alignment. Musculoskeletal: Normal ROM, no deformity. Neurological: Alert and oriented to person, place, time, and situation, No focal neurological deficit observed, normal sensory observed, normal motor observed, normal speech observed. Medical Decision Making Differential Diagnosis: Abdominal pain, Appendicitis, bowel obstruction, bowel perforation, renal stone, ureteral stone, biliary colic, cholecystitis, hepatitis, pancreatitis, urinary tract infection, gastroesophageal reflux disease, gastroenteritis, peptic ulcer disease, gastritis, diverticulitis, ectopic , constipation. Rationale: 28-year-old female presenting with right lower abdominal pain. 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 She is scheduled to see general surgery in 48 hours. However she ran out of pain medication and cannot bear the pain. Patient's abdominal exam is relatively benign. Workup will be initiated.. Documents reviewed: Emergency department nurses' notes. Results review: Lab results : Lab Results 07/08/2019 14:16 EDT Sodium Level 139 mmol/L Potassium Level 3.8 mmol/L Chloride Level 104 mmol/L Carbon Dioxide Level 27 mmol/L Anion Gap 12 Glucose Level 89 mg/dL Blood Urea Nitrogen 7 mg/dL Creatinine Level 0.60 mg/dL eGFR >60 mL/min/1.73m2 eGFR NonAfrican [...] % 30.3 % Lymph # 2.37 x10(3)/uL Levy % 7.8 % Levy # 0.61 K/uL Eos % 4.6 % Eos # 0.36 x10(3)/uL Baso % 0.9 % Baso # 0.07 x10(3)/uL Slide Review No IG# 0.03 x10(3)/uL IG% 0.40 % HCG Serum Quant <1.0 mIU/mL NA 07/08/2019 14:10 EDT Urine Type U CleanCatch Urine Color Yellow Urine Appearance Slightly Cloudy Urine Specific [place] 1.015 Urine pH Dipstick 7.0 Urine Leukocyte Esterase Negative Urine Nitrite Negative Urine Protein Dipstick Negative Urine Glucose Dipstick Negative Urine Ketones Dipstick Negative Urine Urobilinogen Dipstick 0.2 EU/dL Urine Bilirubin Dipstick Negative Urine Blood Dipstick Negative . Radiology results: Radiology Results (Last 48 hours) [id number] -- 07/08/2019 13:29 CT Abdomen Pelvis W (07/08/2019 15:10) Result: CT SCAN OF THE ABDOMEN AND PELVIS WITH CONTRAST. HISTORY: Right lower quadrant pain.COMPARISON: None .PROCEDURE: The patient was injected with IV contrast. Oral contrast wasalso administered. Axial images were obtained from the lung bases to thepubic symphysis by computed tomography. This study was performed withtechniques to keep radiation doses as low as reasonably achievable,(ALARA). Automatic exposure control and/or changing of the mA/ kVaccording to patient size were utilized for radiation dose reduction.FINDINGS: ABDOMEN: The lung bases are clear. The heart is normal in size. Theliver is normal. The patient is status post cholecystectomy. The spleenis mildly enlarged. No adrenal mass is present. The pancreas is normal.The kidneys are normal. The aorta is normal in caliber. There is no freefluid or adenopathy. There is a small umbilical hernia containingfat. The bowel is unremarkable.PELVIS: The appendix is normal. The pelvic bowel is unremarkable. Thepatient is status post hysterectomy. The urinary bladder isunremarkable. There is no significant free fluid or adenopathy. IMPRESSION:1. No acute process.2. Nonspecific mild splenomegaly.Images reviewed, interpreted, and dictated by Dr. Jey Chauhan.Transcribed by Donna Barnett PA-C. . Reexamination/ Reevaluation Time: 07/08/2019 16:33:00 . Notes: On reevaluation, the patient states that they are feeling much better. There were no witnessed episodes of vomiting in the emergency department. Patient tolerated by mouth challenge of juice and crackers without difficulty. They are not complaining of any new abdominal pain. Repeat examination did not show any significant guarding or repound. No new tenderness. At this time I do not feel there is any further emergent treatment to be provided. The patient was given return precautions for acute abdomen. They need to be re-evaluated within 24 hours for acute abdomen. They are to follow up with their PCP or return to the ED for re-examination. If they are to develop any worsening abdominal pain, vomiting or blood in the vomit they are to return the emergency department immediately. Patient verbally acknowledges understanding these directions. The patient was informed of the above diagnostic test findings. No further workup is necessary at this time. They will be discharged home with perscriptions. They were advised to follow-up with their PCP in 24 hours. They were instructed to return to the emergency room if he develops worsening symptoms. The patient feels that this is appropriate medical decision making and verbalizes an understanding of his discharge instructions. . Impression and Plan Diagnosis Chronic abdominal pain - Discharge, Medical Nausea vomiting and diarrhea - Discharge, Medical Plan Condition: Improved. Disposition: Discharged Admit/Transfer/Discharge: Discharge (Order): Start: 07/08/2019 16:33 EDT, Discharge to: Home. Prescriptions: Prescription Clinic Scheduler Pharmacy: [facility] 7.5 mg-325 mg oral tablet (Prescribe): 1 Tab, Oral, Q6H, PRN: for pain, 10 Tab, 0 Refill(s) Zofran ODT 4 mg oral tablet, disintegrating (Prescribe): 1 Tab, Oral, BID, 10 Tab, 0 Refill(s). Patient was given the following educational materials: Abdominal Pain, Adult. Follow up with: ANGELLA MCDONOUGH Within 2 to 3 days; ZONIA CARVALHO Within 1 to 2 days. Counseled: Patient, Regarding diagnosis, Regarding diagnostic results, Regarding treatment plan, Regarding prescription, Patient indicated understanding of instructions. Electronically signed by Napoleon Peter Conversion Data Communications Technician Cerner at 06/05/2022 6:55 PM CDT documented in this encounter Plan of Treatment Not on file documented as of this encounter Visit Diagnoses Not on filedocumented in this encounter
--- OUTSIDE RECORDS SUMMARY | 2024-01-11 19:05 | XMS_ITS | Encounter Summary ---
Author Organization [employer] Address [address] [place] [address] Care Team Providers Care Rest Room Maid Name Role Phone Unavailable Primary Care Provider Unavailabl e Encounter Details Date Type Department Care Team (Late st Contact Info) Description 07/12/2019 Transcribed Document [facility] [place] [facility] [place] [address] Preston Hinds MD [address] [place] [id number] 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 Tobacco Use Types Packs/Day Years Used Date Smoking Tobacco: Never Assessed Comments Unknown Sex and Gender Information Value Date Recorded Sex Assigned at Not on file Legal Sex Female 6:58 PM CDT Gender Identity Not on file Sexual Orientation Not on file documented as of this encounter Miscellaneous Notes * Cerner Conversion Note - Preston Hinds MD - 07/12/2019 11:52 AM CDT DATE OF PROCEDURE: 07/12/2019 SURGEON: Sahil Carvalho MD PREOPERATIVE DIAGNOSES: 1. Chronic right lower quadrant pain. 2. Possible chronic appendicitis. POSTOPERATIVE DIAGNOSES: 1. Chronic right lower quadrant pain. 2. Possible chronic appendicitis. PROCEDURES PERFORMED: 1. Diagnostic laparoscopy. 2. Laparoscopic lysis of adhesions. 3. Laparoscopic appendectomy. FUEL CELL BINDER: eRji Wilson. ANESTHESIA: General endotracheal. INDICATION: Ms. Ivon Dowd is a 28-year-old female, who presents with a several-week history of chronic right lower quadrant abdominal pain radiating across her mid abdomen. She has been in multiple ERs over the past couple of weeks. The only notable finding is a question of an appendicolith on CTA. She has had a prior hysterectomy as well as cholecystectomy. FINDINGS: There were adhesions involving the omentum and the anterior abdominal wall in the lower mid abdomen. The appendix appeared grossly normal. The colon appeared normal. The distal small bowel appeared normal. The patient had a prior hysterectomy as well as cholecystectomy. DESCRIPTION OF PROCEDURE: The patient was brought to the operating room where general endotracheal anesthesia was induced. She was sterilely prepped and draped. Preoperative antibiotics were in place. Sequential pressure compression boots were used for DVT prophylaxis. Time-out was performed per protocol. 0.5% Marcaine with epinephrine was placed at each trocar site for postoperative analgesia. A small stab incision was made in the left upper quadrant, Veress needle placed, and a CO2 pneumoperitoneum obtained. A 5 mm Optiview was then used to enter the peritoneal cavity through upper abdominal wall approach. The abdomen was explored. Findings were as noted. A second port was placed in the left lower abdomen under direct vision with the laparoscope. Laparoscopic scissors were then used to take down fairly extensive omental adhesions in the lower midline. These were all completely reduced. An additional port was then placed in the lower abdomen, and we proceeded to further explore the abdomen. The cecum and ascending colon appeared normal. The terminal ileum appeared normal. We traced the small bowel back about 6 feet and everything appeared normal. There was no evidence of inflammation. There was no obvious adenopathy seen. The patient had a prior hysterectomy. She had had a prior cholecystectomy, and there were few adhesions in the gallbladder fossa. The appendix appeared uninflamed. It was perhaps mildly distended. We then proceeded with an appendectomy. A small rent was created in the mesoappendix at the base of the appendix. We then divided the base of the appendix with the Endo-REYNOLD stapler. The mesentery of the appendix was divided with a separate load of the REYNOLD stapler. Hemostasis was assured across both staple lines. The appendix was placed in a specimen retrieval bag, and delivered through our 12 mm port site and sent to Pathology for formal evaluation. We then proceeded to irrigate the abdomen with sterile saline. Meticulous hemostasis was assured. The trocars were removed and CO2 released from the peritoneal cavity. Skin incision was then closed with 4-0 Monocryl in subcuticular fashion followed by Dermabond. The patient tolerated the procedure well. There were no immediate complications. Sponge and needle counts were correct. She was taken to recovery in stable condition. /[id number] MD SARY Dillon/JEANNIE / SARY / INÉS /[id number] Electronically signed by Interface, [facility] Conversion Community Education Coordinator Cerner at 06/05/2022 6:47 PM CDT documented in this encounter Plan of Treatment Not on file documented as of this encounter Visit Diagnoses Not on filedocumented in this encounter
--- OUTSIDE RECORDS SUMMARY | 2024-01-11 19:05 | XMS_ITS | Encounter Summary ---
Author Organization [employer] Address [address] [place] [address] Care Team Providers Care Change Management Coordinator Name Role Phone Unavailable Primary Care Provider Unavailabl e Encounter Details Date Type Department Care Team (Late st Contact Info) Description 07/12/2019 Transcribed Document [facility] [place] Family Medicine Count includes the [facility] [place] [address] Preston Hinds MD [address] [place] [address] 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 Tobacco Use Types Packs/Day Years Used Date Smoking Tobacco: Never Assessed Comments Unknown Sex and Gender Information Value Date Recorded Sex Assigned at Not on file Legal Sex Female 6:58 PM CDT Gender Identity Not on file Sexual Orientation Not on file documented as of this encounter Miscellaneous Notes * Cerner Conversion Note - Preston ProviderMD - 07/12/2019 1:41 PM CDT [facility] [place] [address] IVON MARTINEZ :1990 Visit Time:07/12/2019 What to do next Your Diagnosis Right lower quadrant pain, Right lower quadrant pain Instructions From Your Care Team Diet after Discharge: Clear liquid diet, regular in the morning, Do not drink any alcoholic beverages, Drink at least 8-10 glasses of water per day Activity after Discharge: As tolerated, Rest and relax today, No strenuous activity Lifting Restrictions: No heavy lifting over 10 pounds Driving after Discharge: Do not drive until 24 hours after no longer taking pain medications May Return to Work/School: when cleared by the surgeon Showering/Bathing: _may shower in 24 hours, No tub bathing, soaking or swimming Notify Provider of: temperature 101 or greater, redness, swelling, excessive bleeding, pus drainage, nausea/vomiting, if the pain is not relieved Wound/Incision Care after Discharge: Keep operative site/wound site clean and dry, no powders, lotions or ointments to the incision Medical Equipment for Home Use: ice pack on first 72 hours, 30 min on then 30 min off walk 3-5 times per day on leveled surfaces to prevent blood clots Follow-Up Appointments Follow Up with ZONIA PENALOZA When Within 2 to 3 days Comments zoom f/u next monday Medications What How Much When Instructions Next Dose acetaminophen-hydrocodone (acetaminophen-HYDROcodone 325 mg-5 mg oral tablet) 1-2 tabs Oral Every 6 Hours as needed for for pain Printed Prescription acetaminophen-hydrocodone ([place] 5 mg-325 mg oral tablet) 1 Tablet(s) Oral Every 4 Hours as needed for for pain acetaminophen-hydrocodone ([place] 7.5 mg-325 mg oral tablet) 1 Tablet(s) Oral Every 6 Hours as needed for for pain ondansetron (Zofran 4 mg oral tablet) 1 Tablet(s) Oral Every 8 Hours as needed for Nausea Printed Prescription ondansetron (Zofran ODT 4 mg oral tablet, disintegrating) 1 Tablet(s) Oral Two Times A Day escitalopram (Lexapro) 20 Milligram(s) Oral Every Day promethazine (Phenergan) 12.5 Milligram(s) Oral Take your medications faithfully. Do NOT skip [...] and medications per pharmacy guidance. Education Materials Laparoscopic Appendectomy, Adult A laparoscopic appendectomy is a surgery to take out the appendix. The appendix is a finger-like structure that is attached to the large intestine. In this surgery, the appendix is removed through three small incisions with the help of a thin, lighted tube that has a camera (laparoscope). This procedure may be done to prevent an inflamed appendix from bursting (rupturing). It may also be done to treat the infection from an appendix that has already ruptured. It is usually done right after inflammation of the appendix (appendicitis) is diagnosed. This is a minimally invasive surgery. It usually results in less pain, fewer problems, and a quicker recovery than surgery done through a large incision. Tell a health care provider about: ??? Any allergies you have. ??? All medicines you are taking, including vitamins, herbs, eye drops, creams, and aedy-ypx-xldherf medicines. ??? Use of steroids (by mouth or creams). ??? Any problems you or family members have had with anesthetic medicines. ??? Any blood disorders you have. ??? Any surgeries you have had. ??? Any medical conditions you have. ??? Whether you are or may be . What are the risks? Generally, this is a safe procedure. However, problems may occur, including: ??? Infection. ??? Bleeding. ??? Allergic reactions to medicines. ??? Damage to other structures or organs. ??? The formation of pus (abscesses). ??? Long-lasting pain or scarring at the incision sites or inside the abdomen. ??? Blood clots in the legs. What happens before the procedure? Eating and drinking restrictions Follow instructions from your health care provider about eating and drinking restrictions. You may be asked not to eat or drink as soon as the diagnosis of appendicitis is made. Medicines Ask your health care provider about: ??? Changing or stopping your regular medicines. This is especially important if you are taking diabetes medicines or blood thinners. ??? Taking medicines such as aspirin and ibuprofen. These medicines can thin your blood. Do not take these medicines unless your health care provider tells you to take them. ??? Taking xbmu-gia-oysxkhr medicines, vitamins, herbs, and supplements. General instructions ??? Plan to have someone take you home from the hospital. ??? If you will be going home right after the procedure, plan to have someone with you for 24 hours. ??? You may be given antibiotic medicine to help prevent infection or to treat existing inflammation or infection. ??? Ask your health care provider how your surgical site will be marked or identified. ??? Ask your health care provider what steps will be taken to help prevent infection. These may include: ? Removing hair at the surgery site. ? Washing skin with a germ-killing soap. ? Taking antibiotic medicine. What happens during the procedure? An IV will be inserted into one of your veins. ??? You will be given one or more of the following: ? A medicine to help you relax (sedative). ? A medicine to numb the area (local anesthetic). ? A medicine to make you fall asleep (general anesthetic). ??? A thin, flexible tube (catheter) may be put into your bladder to drain urine. ??? A tube may be passed through your nose and into your stomach (NG tube, or nasogastric tube) to drain any stomach contents. ??? Your surgeon will make three small incisions near your belly button (navel). ??? Air-like gas will be used to fill your abdomen. The gas will make your abdomen expand. This helps the surgeon see clearly and gives him or her more room to work. ??? A laparoscope will be passed through one of the incisions. ??? Other long, thin surgical instruments will be passed through the other incisions. ??? The appendix will be located and removed through one of the incisions. ??? The abdomen may be washed out to remove bacteria. ??? The incisions will be closed with stitches (sutures), marlyn, or adhesive strips. ??? A bandage (dressing) may be used to cover the incisions. ??? If a tube was inserted into your bladder or stomach, it will be removed. The procedure may vary among health care providers and hospitals. What happens after the procedure? Your blood pressure, heart rate, breathing rate, and blood oxygen level will be monitored until you leave the hospital. ??? You will be given medicines as needed to control pain. ??? Do not drive for 24 hours if you were given a sedative during your procedure. ??? If your appendix did not rupture, you may be able to go home the same day after your surgery. ??? If your appendix ruptured: ? You will get antibiotic medicine through an IV line. ? You may be sent home with a temporary drain. Summary ??? A laparoscopic appendectomy is a surgery to take out the appendix. The appendix is removed through three small incisions with the help of a thin, lighted tube that has a camera. ??? This is a safe procedure, but there are some risks, including bleeding, infection, allergic reaction to medicines, or damage to other organs. ??? You may be asked not to eat or drink as soon as a diagnosis of appendicitis is made. ??? After the procedure, your blood pressure, heart rate, breathing rate, and blood oxygen level will be monitored until you leave the hospital. This information is not intended to replace advice given to you by your health care provider. Make sure you discuss any questions you have with your health care provider. Document Released: 09/20/2004 Document Revised: 08/09/2018 Document Reviewed: 08/09/2018 [employer] Interactive Patient Education ?? 2019 [employer] General Anesthesia, Adult, Care After This sheet [...] activities are safe for you. ??? Take bmpv-fez-dwwbzwr and prescription medicines only as told by [...] care provider. Document Released: 05/15/2001 Document Revised: 09/22/2017 Document Reviewed: 09/22/2017 [employer] Interactive Patient Education ?? 2019 [employer]. ondansetron (oral) (on CARLOS se kristofer) Irene Bonilla Zuplenz What is the most important information I should know about ondansetron? You should not use ondansetron if you are also using apomorphine (Apokyn). What is ondansetron? Ondansetron blocks the actions of chemicals in the body that can trigger nausea and vomiting. Ondansetron is used to prevent nausea and vomiting that may be caused by surgery, cancer chemotherapy, or radiation treatment. Ondansetron may be used for purposes not listed in this medication guide. What should I discuss with my health care provider before taking ondansetron? You should not use ondansetron if: ?? you are also using apomorphine (Apokyn); or ?? you are allergic to ondansetron or similar medicines (dolasetron, granisetron, palonosetron). To make sure ondansetron is safe for you, tell your doctor if you have: ?? liver disease; ?? an electrolyte imbalance (such as low levels of potassium or magnesium in your blood); ?? congestive heart failure, slow heartbeats; ?? a personal or family history of long QT syndrome; or ?? a blockage in your digestive tract (stomach or intestines). Ondansetron is not expected to harm an unborn baby. Tell your doctor if you are . It is not known whether ondansetron passes into breast milk or if it could harm a nursing baby. Tell your doctor if you are breast-feeding a baby. Ondansetron is not approved for use by anyone younger than 4 years old. Ondansetron orally disintegrating tablets may contain phenylalanine. Tell your doctor if you have phenylketonuria (PKU). How should I take ondansetron? Follow all directions on your prescription label. Do not take this medicine in larger or smaller amounts or for longer than recommended. Ondansetron can be taken with or without food. The first dose of ondansetron is usually taken before the start of your surgery, chemotherapy, or radiation treatment. Follow your doctor's dosing instructions very carefully. Take the ondansetron regular tablet with a full glass of water. To take the orally disintegrating tablet (Zofran ODT): ?? Keep the tablet in its blister pack until you are ready to take it. Open the package and peel back the foil. Do not push a tablet through the foil or you may damage the tablet. ?? Use dry hands to remove the tablet and place it in your mouth. ?? Do not swallow the tablet whole. Allow it to dissolve in your mouth without chewing. ?? Swallow several times as the tablet dissolves. To use ondansetron oral soluble film (strip) (Zuplenz): ?? Keep the strip in the foil pouch until you are ready to use the medicine. ?? Using dry hands, remove the strip and place it on your tongue. It will begin to dissolve right away. ?? Do not swallow the strip whole. Allow it to dissolve in your mouth without chewing. ?? Swallow several times after the strip dissolves. If desired, you may drink liquid to help swallow the dissolved strip. ?? Wash your hands after using Zuplenz. Measure liquid medicine with the dosing syringe provided, or with a special dose-measuring spoon or medicine cup. If you do not have a dose-measuring device, ask your pharmacist for one. Store at room temperature away from moisture, heat, and light. Store liquid medicine in an upright position. What happens if I miss a dose? Take the missed dose as soon as you remember. Skip the missed dose if it is almost time for your next scheduled dose. Do not take extra medicine to make up the missed dose. What happens if I overdose? Seek emergency medical attention or call the Poison Help line at . Overdose symptoms may include sudden loss of vision, severe constipation, feeling light-headed, or fainting. What should I avoid while taking ondansetron? Ondansetron may impair your thinking or reactions. Be careful if you drive or do anything that requires you to be alert. What are the possible side effects of ondansetron? Get emergency medical help if you have signs of an allergic reaction: rash, hives; fever, chills, difficult breathing; swelling of your face, lips, tongue, or throat. Call your doctor at once if you have: ?? severe constipation, stomach pain, or bloating; ?? headache with chest pain and severe dizziness, fainting, fast or pounding heartbeats; ?? fast or pounding heartbeats; ?? jaundice (yellowing of the skin or eyes); ?? blurred vision or temporary vision loss (lasting from only a few minutes to several hours); ?? high levels of serotonin in the body--agitation, hallucinations, fever, fast heart rate, overactive reflexes, nausea, vomiting, diarrhea, loss of coordination, fainting. Common side effects may include: ?? diarrhea or constipation; ?? headache; ?? drowsiness; or ?? tired feeling. This is not a complete list of side effects and others may occur. Call your doctor for medical advice about side effects. You may report side effects to FDA at 8-898-LLY-5629. What other drugs will affect ondansetron? Ondansetron can cause a serious heart problem, especially if you use certain medicines at the same time, including antibiotics, antidepressants, heart rhythm medicine, antipsychotic medicines, and medicines to treat cancer, malaria, HIV or AIDS. Tell your doctor about all medicines you use, and those you start or stop using during your treatment with ondansetron. Taking ondansetron while you are using certain other medicines can cause high levels of serotonin to build up in your body, a condition called 'serotonin syndrome,' which can be fatal. Tell your doctor if you also use: ?? medicine to treat depression; ?? medicine to treat a psychiatric disorder; ?? a narcotic (opioid) medication; or ?? medicine to prevent nausea and vomiting. This list is not complete and many other drugs can interact with ondansetron. This includes prescription and svkv-tag-nmbakrc medicines, vitamins, and herbal products. Give a list of all your medicines to any healthcare provider who treats you. Where can I get more information? Your pharmacist can provide more information about ondansetron. Remember, keep this and all other medicines out of the reach of children, never share your medicines with others, and use this medication only for the indication prescribed. Every effort has been made to ensure that the information provided by [employer]. ('[employer]') is accurate, up-to-date, and complete, but no guarantee is made to that effect. Drug information contained herein may be time sensitive. [employer] information has been compiled for use by healthcare practitioners and consumers in the [place] and therefore [employer] does not warrant that uses outside of the [place] are appropriate, unless specifically indicated otherwise. [employer]'s drug information does not endorse drugs, diagnose patients or recommend therapy. [employer] drug information is an informational resource designed to assist licensed healthcare practitioners in caring for their patients and/or to serve consumers viewing this service as a supplement to, and not a substitute for, the expertise, skill, knowledge and judgment of healthcare practitioners. The absence of a warning for a given drug or drug combination in no way should be construed to indicate that the drug or drug combination is safe, effective or appropriate for any given patient. [employer] does not assume any responsibility for any aspect of healthcare administered with the aid of information [employer] provides. The information contained herein is not intended to cover all possible uses, directions, precautions, warnings, drug interactions, allergic reactions, or adverse effects. If you have questions about the drugs you are taking, check with your doctor, nurse or pharmacist. Copyright 3400-8708 [employer]. Version: 13.01. Revision Date: 12/11/2015. acetaminophen and hydrocodone (a SEET a MIN oh fen and edi droe KOE done) Hycet, Lorcet, [place], Verdrocet, Vicodin, Xodol, Zamicet What is the most important information I should know about acetaminophen and hydrocodone? MISUSE OF OPIOID MEDICINE CAN CAUSE ADDICTION, OVERDOSE, OR . Keep the medication in a place where others cannot get to it. Taking opioid medicine during may cause life-threatening withdrawal symptoms in the . Fatal side effects can occur if you use opioid medicine with alcohol, or with other drugs that cause drowsiness or slow your breathing. Stop taking this medicine and call your doctor right away if you have skin redness or a rash that spreads and causes blistering and peeling. What is acetaminophen and hydrocodone? Acetaminophen and hydrocodone is a combination medicine used to relieve moderate to severe pain. Acetaminophen and hydrocodone may also be used for purposes not listed in this medication guide. What should I discuss with my healthcare provider before taking acetaminophen and hydrocodone? You should not use this medicine if you are allergic to acetaminophen or hydrocodone, or if you have: ?? severe asthma or breathing problems; or ?? a blockage in your stomach or intestines. Tell your doctor if you have ever had: ?? breathing problems, sleep apnea; ?? liver disease; ?? a drug or alcohol addiction; ?? kidney disease; ?? a head injury or seizures; ?? urination problems; or ?? problems with your thyroid, pancreas, or gallbladder. If you use opioid medicine while you are , your baby could become dependent on the drug. This can cause life-threatening withdrawal symptoms in the baby after it is born. Babies born dependent on opioids may need medical treatment for several weeks. Do not breastfeed. This medicine can pass into breast milk and cause drowsiness, breathing problems, or in a nursing baby. How should I take acetaminophen and hydrocodone? Follow all directions on your prescription label. Never take this medicine in larger amounts, or for longer than prescribed. An overdose can damage your liver or cause . Tell your doctor if you feel an increased urge to use more of this medicine. Never share this medicine with another person, especially someone with a history of drug abuse or addiction. MISUSE CAN CAUSE ADDICTION, OVERDOSE, OR . Keep the medicine in a place where others cannot get to it. Selling or giving away acetaminophen and hydrocodone is against the law. Measure liquid medicine carefully. Use the dosing syringe provided, or use a medicine dose-measuring device (not a kitchen spoon). If you need surgery or medical tests, tell the doctor ahead of time that you are using this medicine. You should not stop using this medicine suddenly. Follow your doctor's instructions about tapering your dose. Store at room temperature away from moisture and heat. Keep track of your medicine. You should be aware if anyone is using it improperly or without a prescription. Do not keep leftover opioid medication. Just one dose can cause in someone using this medicine accidentally or improperly. Ask your pharmacist where to locate a drug take-back disposal program. If there is no take-back program, flush the unused medicine down the toilet. What happens if I miss a dose? Since this medicine is used for pain, you are not likely to miss a dose. Skip any missed dose if it is almost time for your next dose. Do not use two doses at one time. What happens if I overdose? Seek emergency medical attention or call the Poison Help line at . An overdose of acetaminophen and hydrocodone can be fatal. The first signs of an acetaminophen overdose include loss of appetite, nausea, vomiting, stomach pain, sweating, and confusion or weakness. Later symptoms may include pain in your upper stomach, dark urine, and yellowing of your skin or the whites of your eyes. Overdose can also cause severe muscle weakness, pinpoint pupils, very slow breathing, extreme drowsiness, or coma. What should I avoid while taking acetaminophen and hydrocodone? Avoid driving or operating machinery until you know how this medicine will affect you. Dizziness or drowsiness can cause falls, accidents, or severe injuries. Do not drink alcohol. Dangerous side effects or could occur. Ask a doctor or pharmacist before using any other medicine that may contain acetaminophen (sometimes abbreviated as APAP). Taking certain medications together can lead to a fatal overdose. What are the possible side effects of acetaminophen and hydrocodone? Get emergency medical help if you have signs of an allergic reaction: hives; difficulty breathing; swelling of your face, lips, tongue, or throat. Opioid medicine can slow or stop your breathing, and may occur. A person caring for you should seek emergency medical attention if you have slow breathing with long pauses, blue colored lips, or if you are hard to wake up. In rare cases, acetaminophen may cause a severe skin reaction that can be fatal. This could occur even if you have taken acetaminophen in the past and had no reaction. Stop taking this medicine and call your doctor right away if you have skin redness or a rash that spreads and causes blistering and peeling. Call your doctor at once if you have: ?? noisy breathing, sighing, shallow breathing, breathing that stops during sleep; ?? a light-headed feeling, like you might pass out; ?? liver problems--nausea, upper stomach pain, tiredness, loss of appetite, dark urine, clary-colored stools, jaundice (yellowing of the skin or eyes); or ?? low cortisol levels-- nausea, vomiting, loss of appetite, dizziness, worsening tiredness or weakness. Seek medical attention right away if you have symptoms of serotonin syndrome, such as: agitation, hallucinations, fever, sweating, shivering, fast heart rate, muscle stiffness, twitching, loss of coordination, nausea, vomiting, or diarrhea. Serious side effects may be more likely in older adults and those who are overweight, malnourished, or debilitated. Long-term use of opioid medication may affect fertility (ability to have children) in men or women. It is not known whether opioid effects on fertility are permanent. Common side effects include: ?? dizziness, drowsiness, feeling tired; ?? nausea, vomiting, stomach pain; ?? constipation; or ?? headache. This is not a complete list of side effects and others may occur. Call your doctor for medical advice about side effects. You may report side effects to FDA at 2-601-BWU-8980. What other drugs will affect acetaminophen and hydrocodone? You may have breathing problems or withdrawal symptoms if you start or stop taking certain other medicines. Tell your doctor if you also use an antibiotic, antifungal medication, heart or blood pressure medication, seizure medication, or medicine to treat HIV or hepatitis C. Opioid medication can interact with many other drugs and cause dangerous side effects or . Be sure your doctor knows if you also use: ?? cold or allergy medicines, bronchodilator asthma/COPD medication, or a diuretic ('water pill'); ?? medicines for motion sickness, irritable bowel syndrome, or overactive bladder; ?? other narcotic medications--opioid pain medicine or prescription cough medicine; ?? a sedative like Valium--diazepam, alprazolam, lorazepam, Xanax, Klonopin, Versed, and others; ?? drugs that make you sleepy or slow your breathing--a sleeping pill, muscle relaxer, medicine to treat mood disorders or mental illness; ?? drugs that affect serotonin levels in your body--a stimulant, or medicine for depression, Parkinson's disease, migraine headaches, serious infections, or nausea and vomiting. This list is not complete. Other drugs may affect acetaminophen and hydrocodone, including prescription and [id number] medicines, vitamins, and herbal products. Not all possible interactions are listed here. Where can I get more information? Your doctor or pharmacist can provide more information about acetaminophen and hydrocodone. Remember, keep this and all other medicines out of the reach of children, never share your medicines with others, and use this medication only for the indication prescribed. Every effort has been made to ensure that the information provided by [employer]. ('[employer]') is accurate, up-to-date, and complete, but no guarantee is made to that effect. Drug information contained herein may be time sensitive. [employer] information has been compiled for use by healthcare practitioners and consumers in the [place] and therefore [employer] does not warrant that uses outside of the [place] are appropriate, unless specifically indicated otherwise. [employer] drug information does not endorse drugs, diagnose patients or recommend therapy. [employer] drug information is an informational resource designed to assist licensed healthcare practitioners in caring for their patients and/or to serve consumers viewing this service as a supplement to, and not a substitute for, the expertise, skill, knowledge and judgment of healthcare practitioners. The absence of a warning for a given drug or drug combination in no way should be construed to indicate that the drug or drug combination is safe, effective or appropriate for any given patient. [employer] does not assume any responsibility for any aspect of healthcare administered with the aid of information [employer] provides. The information contained herein is not intended to cover all possible uses, directions, precautions, warnings, drug interactions, allergic reactions, or adverse effects. If you have questions about the drugs you are taking, check with your doctor, nurse or pharmacist. Copyright 3168-9603 [employer]. Version: 16.01. Revision Date: 03/13/2019. Emergency Awareness and Preventative Care STROKE is an EMERGENCY Every Minute Counts Act FAST and Check for these signs: FACE Does the face look uneven? ARM Does one arm drift down? SPEECH Does their speech sound strange? TIME Call 9- at any sign of stroke Stroke Risk [...] Assistance with quitting is available by contacting 2-732-ADMSNOW. This is a free resource providing counseling, support, and referral. Or you may contact your personal physician. [place] Suicide Prevention Lifeline: The National Suicide Prevention [...] CPR? There are two easy steps: Call 9-1-1 if you see a teen or adult [...] This Visit (last charted value for your 07/12/2019 visit) Microbiology 07/10/2019 2:32 PM Novel Coronavirus 2019: Negative Patient Name:IVON MARTINEZ I have received this information and was given the opportunity to ask questions. Patient/Nuclear Station Operator Name: Patient/Nuclear Station Operator Signature: Relationship to Patient: Clinician/Hospital Nuclear Station Operator Signature: Date: Electronically signed by Interface, [facility] Conversion Quantitative Developer Merrill at 06/05/2022 6:37 PM CDT documented in this encounter Plan of Treatment Not on file documented as of this encounter Visit Diagnoses Not on filedocumented in this encounter
--- OUTSIDE RECORDS SUMMARY | 2024-01-11 19:05 | XMS_ITS | Encounter Summary ---
Author Organization [employer] Address [address] [place] [address] Care Team Providers Care Hog Cutter Name Role Phone Unavailable Primary Care Provider Unavailabl e Encounter Details Date Type Department Care Team (Late st Contact Info) Description 07/08/2019 Historic Encounter [facility] Radiology [address] [place] [address] Jey Chauhan MD [address] [address] 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 Tobacco Use Types Packs/Day Years [...] Name Priority Date/Time Associated Diagnosis Comments CBC W/ AUTO DIFF ([facility] BKR DATA CONV) Routine 07/09/2019 8:52 PM EDT AUTOMATED DIFFERENTIAL ([facility] DATA CONV) Routine 07/09/2019 8:52 PM EDT CMP COMPREHENSIVE METABOLIC PANEL ([facility]KR DATA CONV) Routine 07/09/2019 8:52 PM EDT LIPASE Routine 07/09/2019 8:[address] ABDOMEN/PELVIS WITH IV CONTRAST STAT 07/08/2019 4:10 PM EDT HCG SERUM QUANTITATIVE ([facility] BKR DATA CONV) Routine 07/08/2019 2:16 PM EDT CBC W/ AUTO DIFF ([facility] DATA CONV) Routine 07/08/2019 2:16 PM EDT AUTOMATED DIFFERENTIAL ([facility] BKR DATA CONV) Routine 07/08/2019 2:16 PM EDT CMP COMPREHENSIVE METABOLIC PANEL ([facility] BKR DATA CONV) Routine 07/08/2019 2:16 PM EDT LIPASE Routine 07/08/2019 2:16 PM EDT URINALYSIS WITH MICROSCOPIC IF INDICATED Routine 07/08/2019 2:10 PM EDT documented in this encounter Results * CBC W/ AUTO DIFF ([facility] BKR DATA CONV) (07/09/2019 8:52 PM EDT) WBC 6.2 4.5 - 10.5 K/uL 07/10/2019 12:58 AM EDT RBC 4.18 3.93 - 5.22 Million/uL 07/10/2019 12:58 AM EDT Hgb 12.7 11.2 - 15.7 g/dL 07/10/2019 12:58 AM EDT Hct 36.8 34.1 - 44.9 % 07/10/2019 12:58 AM EDT MCV 88.0 79.0 - 94.8 fL 07/10/2019 12:58 AM EDT MCH 30.4 25.6 - 32.2 pg 07/10/2019 12:58 AM EDT MCHC 34.5 32.2 - 36.5 Gram/dL 07/10/2019 12:58 AM EDT RDW 11.8 11.7 - 14.9 % 07/10/2019 12:58 AM EDT Platelet Count 236 163 - 369 K/uL 07/10/2019 12:58 AM EDT MPV 10.2 9.4 - 12.4 fL 07/10/2019 12:58 AM EDT Slide Review No 07/10/2019 1:06 AM EDT Blood 07/09/2019 8:52 PM EDT 07/10/2019 12:56 AM EDT [facility] Historical Provider LAB BLOOD ORDERABLES Fi nal Result [facility] [address] [phone] * LIPASE (07/09/2019 8:52 PM EDT) Lipase Level 131 73 - 393 Units/Liter 07/10/2019 1:23 AM EDT Blood 07/09/2019 8:52 PM EDT 07/10/2019 12:56 AM EDT [facility] Provider PATHOLOGY/CYTOLOGY ORDE RABLES Final Result Performing Organization Address [facility] Co de Phone Number [facility] [address] [phone] * (ABNORMAL) CMP COMPREHENSIVE METABOLIC PANEL ([facility] BKR DATA CONV) (07/09/2019 8:52 PM EDT) Sodium Level 139 136 - 146 mmol/L 07/10/2019 1:23 AM EDT Potassium Level 3.6 3.5 - 5.1 mmol/L 07/10/2019 1:23 AM EDT Chloride Level 108 102 - 112 mmol/L 07/10/2019 1:23 AM EDT Carbon Dioxide Level 25 21 - 32 mmol/L 07/10/2019 1:23 AM EDT Anion Gap 10 9 - 20 07/10/2019 1:23 AM EDT Calcium Level 8.4 8.4 - 10.1 mg/dL 07/10/2019 1:23 AM EDT Glucose Level 102 74 - 106 mg/dL 07/10/2019 1:23 AM EDT Comment: [employer] has become aware of sulfasalazine and sulfapyridine drug interference in the assays ALT, AST, T4, CKMB, glucose, and ammonia. The probability of misinterpretation of results for the assays is remote and would be limited to scenarios where a patient has taken the drug and had a blood sample drawn before clearance of the drug to a level that does not interfere with laboratory testing. Venipuncture should occur prior to administration of the drug. Blood Urea Nitrogen 6(L) 7 - 22 mg/dL 07/10/2019 1:23 AM EDT Creatinine Level 0.60 0.55 - 1.02 mg/dL 07/10/2019 1:23 AM EDT Bun/Creatinine 10.0 8.0 - 20.0 07/10/2019 1:23 AM EDT Albumin Level 3.4 3.4 - 5.0 Gram/dL 07/10/2019 1:23 AM EDT Protein, Total 7.0 6.4 - 8.2 Gram/dL 07/10/2019 1:23 AM EDT A/G Ratio 0.9(L) 1.1 - 2.5 07/10/2019 1:23 AM EDT Alk Phos 70 27 - 136 Units/Lit er 07/10/2019 1:23 AM EDT ALT 36 13 - 56 Units/Lit er 07/10/2019 1:23 AM EDT Comment: [employer] has become aware of sulfasalazine and sulfapyridine drug interference in the assays ALT, AST, T4, CKMB, glucose, and ammonia. The probability of misinterpretation of results for the assays is remote and would be limited to scenarios where a patient has taken the drug and had a blood sample drawn before clearance of the drug to a level that does not interfere with laboratory testing. Venipuncture should occur prior to administration of the drug. AST 19 5 - 37 Units/Lit er 07/10/2019 1:23 AM EDT Comment: [employer] has become aware of sulfasalazine and sulfapyridine drug interference in the assays ALT, AST, T4, CKMB, glucose, and ammonia. The probability of misinterpretation of results for the assays is remote and would be limited to scenarios where a patient has taken the drug and had a blood sample drawn before clearance of the drug to a level that does not interfere with laboratory testing. Venipuncture should occur prior to administration of the drug. Bilirubin, Total 0.3 0.2 - 1.2 mg/dL 07/10/2019 1:23 AM EDT Comment: Total bilirubin results may be falsely elevated in patients undergoing treatment with eltrombopag (Promacta). Results should be correlated to clinical symptomology and additional laboratory testing including other markers for liver function, e.g., alanine aminotransferase, aspartate aminotransferase, alkaline phosphatase, and/or lactate dehydrogenase. Globulin 3.6 1.5 - 4.5 Gram/dL 07/10/2019 1:23 AM EDT eGFR >60 >=60 mL/min/1. 73m2 07/10/2019 1:24 AM EDT Comment: GFR <60 suggests chronic kidney disease, if found over 3 month period. GFR <15 indicates renal failure. eGFR NonAfrican >60 >=60 mL/min/1. 73m2 07/10/2019 1:24 AM EDT Comment: GFR <60 suggests chronic kidney disease, if found over 3 month period. GFR <15 indicates renal failure. Blood 07/09/2019 8:52 PM EDT 07/10/2019 12:56 AM EDT [facility] Historical Provider LAB BLOOD ORDERABLES Fi nal Result [facility] [address] [place] [address] * AUTOMATED DIFFERENTIAL ([facility] BKR DATA CONV) (07/09/2019 8:52 PM EDT) Neut% 51.6 34.0 - 71.0 % 07/10/2019 12:58 AM EDT Lymph% 34.7 19.3 - 53.1 % 07/10/2019 12:58 AM EDT Tompkins% 7.1 3.0 - 9.0 % 07/10/2019 12:58 AM EDT Eos% 5.3 0.0 - 7.0 % 07/10/2019 12:58 AM EDT Baso% 1.0 0.0 - 1.5 % 07/10/2019 12:58 AM EDT IG% 0.30 0.00 - 0.60 % 07/10/2019 12:58 AM EDT Neut# 3.18 1.56 - 6.13 K/uL 07/10/2019 12:58 AM EDT Lymph# 2.14 1.00 - 3.90 x10(3)/uL 07/10/2019 12:58 AM EDT Tompkins# 0.44 0.16 - 1.00 K/uL 07/10/2019 12:58 AM EDT Eos# 0.33 0.00 - 0.80 x10(3)/uL 07/10/2019 12:58 AM EDT Baso# 0.06 0.00 - 0.20 x10(3)/uL 07/10/2019 12:58 AM EDT IG# 0.02 0.00 - 0.05 x10(3)/uL 07/10/2019 12:58 AM EDT Blood 07/09/2019 8:52 PM EDT 07/10/2019 12:56 AM EDT Narrative [facility] - 07/10/2019 1:06 AM EDT Added by Discern Expert us [facility] Historical Provider LAB BLOOD ORDERABLES Fi nal Result [facility] [address] [phone] * CT ABDOMEN/PELVIS WITH IV CONTRAST (07/08/2019 4:10 PM EDT) Anatomical Region Laterality Modality Abdomen, Pelvis Computed Tomogra phy 07/08/2019 4:10 PM EDT Narrative 07/08/2019 9:54 PM EDT ?? CT SCAN OF THE ABDOMEN AND PELVIS WITH CONTRAST. ? HISTORY: Right lower quadrant pain. COMPARISON: ??None . PROCEDURE: The patient was injected with IV contrast. Oral contrast was also administered. Axial images were obtained from the lung bases to the pubic symphysis by computed tomography. This study was performed with techniques to keep radiation doses as low as reasonably achievable, (ALARA). Automatic exposure control and/or changing of the mA/ kV according to patient size were utilized for radiation dose reduction. FINDINGS: ABDOMEN: The lung bases are clear. The heart is normal in size. The liver is normal. The patient is status post cholecystectomy. The spleen is mildly enlarged. No adrenal mass is present. ??The pancreas is normal. The kidneys are normal. The aorta is normal in caliber. There is no free fluid or adenopathy. ? There is a small umbilical hernia containing fat. The bowel is unremarkable. PELVIS: The appendix is normal. The pelvic bowel is unremarkable. The patient is status post hysterectomy. The urinary bladder is unremarkable. There is no significant free fluid or adenopathy. ? IMPRESSION: 1. No acute process. 2. Nonspecific mild splenomegaly. Images reviewed, interpreted, and dictated by Dr. Jey Chauhan. Transcribed by Donna Barnett PA-C. I have personally viewed, interpreted and dictated the examination. I have read and agree with the above final transcribed report. Procedure Note Jey Chauhan MD - 06/07/2022 CT SCAN OF THE ABDOMEN AND PELVIS WITH CONTRAST. HISTORY: Right lower quadrant pain. COMPARISON: None . PROCEDURE: The patient was injected with IV contrast. Oral contrast was also administered. Axial images were obtained from the lung bases to the pubic symphysis by computed tomography. This study was performed with techniques to keep radiation doses as low as reasonably achievable, (ALARA). Automatic exposure control and/or changing of the mA/ kV according to patient size were utilized for radiation dose reduction. FINDINGS: ABDOMEN: The lung bases are clear. The heart is normal in size. The liver is normal. The patient is status post cholecystectomy. The spleen is mildly enlarged. No adrenal mass is present. The pancreas is normal. The kidneys are normal. The aorta is normal in caliber. There is no free fluid or adenopathy. There is a small umbilical hernia containing fat. The bowel is unremarkable. PELVIS: The appendix is normal. The pelvic bowel is unremarkable. The patient is status post hysterectomy. The urinary bladder is unremarkable. There is no significant free fluid or adenopathy. IMPRESSION: 1. No acute process. 2. Nonspecific mild splenomegaly. Images reviewed, interpreted, and dictated by Dr. Jey Chauhan. Transcribed by Donna Barnett PA-C. I have personally viewed, interpreted and dictated the examination. I have read and agree with the above final transcribed report. Jey Chauhan MD [facility] [place] Final Result * HCG SERUM QUANTITATIVE ([facility] BK DATA CONV) (07/08/2019 2:16 PM EDT) HCG Serum Quant <1.0 mIU/mL 0 6:44 PM EDT Comment: Results of the HCG quant test should always be interpreted in conjunction with the patient's medical history, clinical presentation, and other findings. Reference range for adult male, age 19-67: </=1 Reference range for Non- female, age 18-62: 1-3.0 Reference range for female: Gestational Age ?Total Beta-HCG (mIU/mL) 1.4 days-1 week ? 5-50 1-2 weeks ? 50-500 2-3 weeeks ?100-5,000 3-4 Weeks ? 500-10,000 4-5 Weeks ? 1,000-50,000 5-6 Weeks ? 10,000-100,000 6-8 Weeks ? 15,000-200,000 2-3 months ?10,000-100,000 Biotin supplements can cause clinically significant incorrect lab results. The FDA has seen an increase in the number of adverse events related to biotin interference with lab tests. Blood 07/08/2019 2:16 PM EDT 07/08/2019 6:16 PM EDT [facility] Historical Provider LAB BLOOD ORDERABLES Fi nal Result [facility] [address] [phone] * (ABNORMAL) CMP COMPREHENSIVE METABOLIC PANEL ([facility] BKR DATA CONV) (07/08/2019 2:16 PM EDT) Sodium Level 139 136 - 146 mmol/L 07/08/2019 6:44 PM EDT Potassium Level 3.8 3.5 - 5.1 mmol/L 07/08/2019 6:44 PM EDT Chloride Level 104 102 - 112 mmol/L 07/08/2019 6:44 PM EDT Carbon Dioxide Level 27 21 - 32 mmol/L 07/08/2019 6:44 PM EDT Anion Gap 12 9 - 20 07/08/2019 6:44 PM EDT Calcium Level 8.6 8.4 - 10.1 mg/dL 07/08/2019 6:44 PM EDT Glucose Level 89 74 - 106 mg/dL 07/08/2019 6:44 PM EDT Comment: [employer] has become aware of sulfasalazine and sulfapyridine drug interference in the assays ALT, AST, T4, CKMB, glucose, and ammonia. The probability of misinterpretation of results for the assays is remote and would be limited to scenarios where a patient has taken the drug and had a blood sample drawn before clearance of the drug to a level that does not interfere with laboratory testing. Venipuncture should occur prior to administration of the drug. Blood Urea Nitrogen 7 7 - 22 mg/dL 07/08/2019 6:44 PM EDT Creatinine Level 0.60 0.55 - 1.02 mg/dL 07/08/2019 6:44 PM EDT Bun/Creatinine 11.7 8.0 - 20.0 07/08/2019 6:44 PM EDT Albumin Level 3.8 3.4 - 5.0 Gram/dL 07/08/2019 6:44 PM EDT Protein, Total 7.7 6.4 - 8.2 Gram/dL 07/08/2019 6:44 PM EDT A/G Ratio 1.0(L) 1.1 - 2.5 07/08/2019 6:44 PM EDT Alk Phos 77 27 - 136 Units/Lit er 07/08/2019 6:44 PM EDT ALT 40 13 - 56 Units/Lit er 07/08/2019 6:44 PM EDT Comment: [employer] has become aware of sulfasalazine and sulfapyridine drug interference in the assays ALT, AST, T4, CKMB, glucose, and ammonia. The probability of misinterpretation of results for the assays is remote and would be limited to scenarios where a patient has taken the drug and had a blood sample drawn before clearance of the drug to a level that does not interfere with laboratory testing. Venipuncture should occur prior to administration of the drug. AST 22 5 - 37 Units/Lit er 07/08/2019 6:44 PM EDT Comment: [employer] has become aware of sulfasalazine and sulfapyridine drug interference in the assays ALT, AST, T4, CKMB, glucose, and ammonia. The probability of misinterpretation of results for the assays is remote and would be limited to scenarios where a patient has taken the drug and had a blood sample drawn before clearance of the drug to a level that does not interfere with laboratory testing. Venipuncture should occur prior to administration of the drug. Bilirubin, Total 0.4 0.2 - 1.2 mg/dL 07/08/2019 6:44 PM EDT Comment: Total bilirubin results may be falsely elevated in patients undergoing treatment with eltrombopag (Promacta). Results should be correlated to clinical symptomology and additional laboratory testing including other markers for liver function, e.g., alanine aminotransferase, aspartate aminotransferase, alkaline phosphatase, and/or lactate dehydrogenase. Globulin 3.9 1.5 - 4.5 Gram/dL 07/08/2019 6:44 PM EDT eGFR >60 >=60 mL/min/1. 73m2 07/08/2019 6:44 PM EDT Comment: GFR <60 suggests chronic kidney disease, if found over 3 month period. GFR <15 indicates renal failure. eGFR NonAfrican >60 >=60 mL/min/1. 73m2 07/08/2019 6:44 PM EDT Comment: GFR <60 suggests chronic kidney disease, if found over 3 month period. GFR <15 indicates renal failure. Blood 07/08/2019 2:16 PM EDT 07/08/2019 6:16 PM EDT [facility] Historical Provider LAB BLOOD ORDERABLES Fi nal Result Performing Organization Address City/[facility]/ZIP Co de Phone Number [facility] [address] [phone] * LIPASE (07/08/2019 2:16 PM EDT) Lipase Level 132 73 - 393 Units/Liter 07/08/2019 6:44 PM EDT Blood 07/08/2019 2:16 PM EDT 07/08/2019 6:16 PM EDT [facility] Provider PATHOLOGY/CYTOLOGY ORDE RABMOLLY Final Result Performing Organization Address [facility] Co de Phone Number [facility] [address] [phone] * AUTOMATED DIFFERENTIAL ([facility] BKR DATA CONV) (07/08/2019 2:16 PM EDT) Neut% 56.0 34.0 - 71.0 % 07/08/2019 6:18 PM EDT Lymph% 30.3 19.3 - 53.1 % 07/08/2019 6:18 PM EDT Tompkins% 7.8 3.0 - 9.0 % 07/08/2019 6: 18 PM EDT Eos% 4.6 0.0 - 7.0 % 07/08/2019 6: 18 PM EDT Baso% 0.9 0.0 - 1.5 % 07/08/2019 6: 18 PM EDT IG% 0.40 0.00 - 0.60 % 07/08/2019 6:18 PM EDT Neut# 4.37 1.56 - 6.13 K/uL 07/08/2019 6:18 PM EDT Lymph# 2.37 1.00 - 3.90 x10(3)/uL 07/08/2019 6:18 PM EDT Tompkins# 0.61 0.16 - 1.00 K/uL 07/08/2019 6:18 PM EDT Eos# 0.36 0.00 - 0.80 x10(3)/uL 07/08/2019 6:18 PM EDT Baso# 0.07 0.00 - 0.20 x10(3)/uL 07/08/2019 6:18 PM EDT IG# 0.03 0.00 - 0.05 x10(3)/uL 07/08/2019 6:18 PM EDT Blood 07/08/2019 2:16 PM EDT 07/08/2019 6:16 PM EDT Narrative [facility] - 07/08/2019 6:20 PM EDT Added by Discern Expert us [facility] Historical Provider LAB BLOOD ORDERABLES Fi nal Result [facility] [address] [phone] * CBC W/ AUTO DIFF ([facility] BKR DATA CONV) (07/08/2019 2:16 PM EDT) WBC 7.8 4.5 - 10.5 K/uL 07/08/2019 6:18 PM EDT RBC 4.39 3.93 - 5.22 Million/uL 07/08/2019 6:18 PM EDT Hgb 13.4 11.2 - 15.7 g/dL 07/08/2019 6:18 PM EDT Hct 37.9 34.1 - 44.9 % 07/08/2019 6:18 PM EDT MCV 86.3 79.0 - 94.8 fL 07/08/2019 6:18 PM EDT MCH 30.5 25.6 - 32.2 pg 07/08/2019 6:18 PM EDT MCHC 35.4 32.2 - 36.5 Gram/dL 07/08/2019 6:18 PM EDT RDW 11.9 11.7 - 14.9 % 07/08/2019 6:18 PM EDT Platelet Count 274 163 - 369 K/uL 07/08/2019 6:18 PM EDT MPV 10.5 9.4 - 12.4 fL 07/08/2019 6:18 PM EDT Slide Review No 07/08/2019 6:19 PM EDT Blood 07/08/2019 2:16 PM EDT 07/08/2019 6:16 PM EDT [facility] Historical Provider LAB BLOOD ORDERABLES Fi nal Result [facility] [address] [phone] * Urinalysis with Microscopic If Indicated (07/08/2019 2:10 PM EDT) Urine Type U CleanCatch 07/08/2019 6:26 PM EDT Urine Color Yellow 07/08/2019 6:26 PM EDT Comment: Substances that cause HIGHLY abnormal urine color may affect the accuracy of URINE CHEMISTRY reagent strip results due to colorimetric interference. ??These include visible levels of blood or bilirubin, drugs containing dyes, and some antibiotics such as nitrofurantoin and riboflavin which can cause markedly abnormal urine coloration. Urine Appearance Slightly Cloudy 07/08/2019 6:26 PM EDT Urine Specific [place] 1.015 1.005 - 1.030 07/08/2019 6:26 PM EDT Urine pH Dipstick 7.0 6.0 - 8.0 07/08/2019 6:26 PM EDT Urine Leukocyte Esterase Negative Negative 07/08/2019 6:26 PM EDT Urine Nitrite Negative Negative 07/08/2019 6:26 PM EDT Urine Protein Dipstick Negative Negative 07/08/2019 6:26 PM EDT Comment:Use of urine preserv atives may elevate protein results and reduce bilirubin, blood and nitrite results. Urine Glucose Dipstick Negative Negative 07/08/2019 6:26 PM EDT Urine Ketones Dipstick Negative Negative 07/08/2019 6:26 PM EDT Urine Urobilinogen Dipstick 0.2 EU/dL 07/08/2019 6:26 PM EDT Urine Bilirubin Dipstick Negative Negative 07/08/2019 6:26 PM EDT Urine Blood Dipstick Negative Negative 07/08/2019 6:26 PM EDT Urine 07/08/2019 2:10 PM EDT 07/08/2019 6:16 PM EDT us [facility] Historical Provider URINE ORDERABLES Final Result [facility] [address] [place], [place] [address] [phone] documented in this encounter Visit Diagnoses Not on filedocumented in this encounter
--- OUTSIDE RECORDS SUMMARY | 2024-01-11 19:05 | XMS_ITS | Encounter Summary ---
Author Organization [employer] Address [address] [place] [address] Care Team Providers Care Compliance Engineer Products Name Role Phone Unavailable Primary Care Provider Unavailabl e Encounter Details Date Type Department Care Team (Late st Contact Info) Description 07/08/2019 Transcribed Document [facility] [place] Family Medicine [facility] [place] [address] ProviderPreston MD [facility] [place], [place] [id number] 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 Tobacco Use Types Packs/Day Years Used Date Smoking Tobacco: Never Assessed Comments Unknown Sex and Gender Information Value Date Recorded Sex Assigned at Not on file Legal Sex Female 6:58 PM CDT Gender Identity Not on file Sexual Orientation Not on file documented as of this encounter Miscellaneous Notes * Cerner Conversion Note - Historical ProviderMD - 07/08/2019 4:49 PM CDT ED Discharge Entered On: 07/08/2019 16:50 EDT Performed On: 07/08/2019 16:49 EDT by ASUNCION GASCA RN Discharge Process Patient Disposition : Discharge Personal Belongings With Patient : Yes Patient Education Completed : Yes Teaching Evaluation : Verbalizes understanding IV Discontinued : Yes ASUNCION GASCA RN - 07/08/2019 16:49 EDT ED Discharge Discharge To : Home with ambulatory/outpatient follow-up Mode Of Departure : Private vehicle Accompanied By : Friend Discharge Instructions Reviewed With, Opportunity For Questions Given : Patient Prescriptions Given to Patient : Yes Number of Prescriptions Given : 2 ASUNCION GASCA RN - 07/08/2019 16:49 EDT documented in this encounter Plan of Treatment Not on file documented as of this encounter Visit Diagnoses Not on filedocumented in this encounter
--- OUTSIDE RECORDS SUMMARY | 2024-01-11 19:05 | XMS_ITS | Encounter Summary ---
Author Organization [employer] Address [address] [place] [address] Care Team Providers Care Manufacturing Support Engineer Name Role Phone Unavailable Primary Care Provider Unavailabl e Encounter Details Date Type Department Care Team (Late st Contact Info) Description 07/12/2019 Transcribed Document [facility] [place] Family Medicine [facility] [place] [address] Preston Hinds MD [address] [place] [address] 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 Tobacco Use Types Packs/Day Years Used Date Smoking Tobacco: Never Assessed Comments Unknown Sex and Gender Information Value Date Recorded Sex Assigned at Not on file Legal Sex Female 6:58 PM CDT Gender Identity Not on file Sexual Orientation Not on file documented as of this encounter Miscellaneous Notes * Cerner Conversion Note - Preston ProviderMD - 07/12/2019 1:58 PM CDT [facility] [place] [address] IVON MARTINEZ :1990 Visit Time:07/12/2019 What [...] needed for for pain Printed Prescription acetaminophen-hydrocodone (Adkins 5 mg-325 mg oral tablet) 1 Tablet(s) Oral Every 4 Hours as needed for for pain acetaminophen-hydrocodone (Adkins 7.5 mg-325 mg oral tablet) 1 Tablet(s) [...] including vitamins, herbs, eye drops, creams, and jldy-nzk-vtdzzus medicines. ??? Use of steroids (by mouth [...] tells you to take them. ??? Taking xdzn-slk-iskszkm medicines, vitamins, herbs, and supplements. General instructions [...] 09/20/2004 Document Revised: 08/09/2018 Document Reviewed: 08/09/2018 [employer] Interactive Patient Education ?? 2019 [employer] General Anesthesia, Adult, Care After This [...] activities are safe for you. ??? Take ettq-ygq-yosfwhp and prescription medicines only as told by [...] 05/15/2001 Document Revised: 09/22/2017 Document Reviewed: 09/22/2017 [employer] Interactive Patient Education ?? 2019 [employer]. ondansetron (oral) (on CARLOS se kristofer) Irene [...] may report side effects to FDA at 6-408-QYF-2319. What other drugs will affect ondansetron? Ondansetron [...] interact with ondansetron. This includes prescription and gzgl-ijd-bixxfcf medicines, vitamins, and herbal products. Give a [...] to ensure that the information provided by [employer]. ('[employer]') is accurate, up-to-date, and complete, but no guarantee is made to that effect. Drug information contained herein may be time sensitive. [employer] information has been compiled for use by healthcare practitioners and consumers in the [place] and therefore [employer] does not warrant that uses outside of the [place] are appropriate, unless specifically indicated otherwise. [employer]'s drug information does not endorse drugs, diagnose patients or recommend therapy. [employer] drug information is an informational resource designed [...] effective or appropriate for any given patient. [employer] does not assume any responsibility for any aspect of healthcare administered with the aid of information [employer] provides. The information contained herein is not intended to cover all possible uses, directions, precautions, warnings, drug interactions, allergic reactions, or adverse effects. If you have questions about the drugs you are taking, check with your doctor, nurse or pharmacist. Copyright 7558-5030 [employer]. Version: 13.01. Revision Date: 12/11/2015. acetaminophen and hydrocodone (a SEET a MIN oh fen and edi droe KOE done) Hycet, Lorcet, Adkins, Verdrocet, Vicodin, Xodol, Zamicet What is the [...] may report side effects to FDA at 3-609-KRM-4701. What other drugs will affect acetaminophen and [...] affect acetaminophen and hydrocodone, including prescription and twzy-hfd-ouuqart medicines, vitamins, and herbal products. Not all [...] to ensure that the information provided by [employer]') is accurate, up-to-date, and complete, but no guarantee is made to that effect. Drug information contained herein may be time sensitive. [employer] information has been compiled for use by healthcare practitioners and consumers in the [place] and therefore [employer] does not warrant that uses outside of the [place] are appropriate, unless specifically indicated otherwise. [employer] drug information does not endorse drugs, diagnose patients or recommend therapy. [employer] drug information is an informational resource designed [...] effective or appropriate for any given patient. [employer] does not assume any responsibility for any aspect of healthcare administered with the aid of information [employer] provides. The information contained herein is not intended to cover all possible uses, directions, precautions, warnings, drug interactions, allergic reactions, or adverse effects. If you have questions about the drugs you are taking, check with your doctor, nurse or pharmacist. Copyright 4436-7781 [employer]. Version: 16.01. Revision Date: 03/13/2019. Emergency Awareness [...] Assistance with quitting is available by contacting 8-560-USAZNOW. This is a free resource providing counseling, support, and referral. Or you may contact your personal physician. [place] Suicide Prevention Lifeline: The National Suicide Prevention [...] was given the opportunity to ask questions. Patient/Hide Inspector And Sorter Name: Patient/Hide Inspector And Sorter Signature: Relationship to Patient: Clinician/Hospital Hide Inspector And Sorter Signature: Date: Electronically signed by Interface, [facility] Conversion Stone Circular Sawyer Merrill at 06/05/2022 6:31 PM CDT documented in this encounter Plan of Treatment Not on file documented as of this encounter Visit Diagnoses Not on filedocumented in this encounter
--- OUTSIDE RECORDS SUMMARY | 2024-01-11 19:05 | XMS_ITS | Encounter Summary ---
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] Procedures ND MASTECTOMY, SIMPLE, COMPLETE Right total mastectomy, flat closure Giana Mays MD [address] [facility] Joaquina Guzman [address] [address] Phone: tel: fax: [facility] OPERATING ROOM [address] [place] [address] Phone: tel: Referral ID Status Reason Start Date Expiration Date Visits Re quested Visits Authorized [id number] 1 1 Encounter Details Date Type Department Care Team (Late st Contact Info) Description 12/25/2023 10:33 AM EST - 12/26/2023 12:51 PM [facility] Hospital Encounter P[facility] A Inpatient [address] [place] [address] Giana Mays MD [address] [facility] Joaquina Guzman [address] [address] Atypical hyperplasia of breast Discharge Disposition: Home or Self Care Social [...] place to sleep or slept in a usp (including now)? No 09/18/2023 PHQ-9 Answer Date [...] drink first t maurilio in the morning (EYE-BRIM CURLER) to steady your nerves or to get rid of a hangover? 0 09/16/2023 CAGE Questionnaire Score 0 024 Utilities Answer Date Recorded In the past 12 months has th e [employer], gas, oil, or water [employer] threatened to shut off services in your [...] Mass Index 48.09 12/25/2023 12:55 PM EST documented in this encounter Discharge Instructions * Discharge Instructions* Roman Conn MD - 12/26/2023 7:38 AM EST After Mastectomy For Dr. Mays Staying Active You need to keep your whole body active after your surgery. Take deep breaths and cough. Walk around your room while you are in the hospital. You don???t have to, and shouldn???t stay in bed. Use your arm for normal activities like bathing and eating. But do not lift anything over 5 pounds until your doctor says it is ok. Do not raise your arm straight over your head on the side where you had your surgery. You should wear button-up shirts for easy dressing. If you wear cotton puller shirts, wear a larger size than normal. Put the arm on the surgery side in first. Then pull the shirt over your head without lifting that arm. Most people may return to driving once the drains are removed. Arm and Shoulder Exercises Stretching exercises are very important after breast surgery. We will show you how to do them. Don???t do any exercised until all of the drains are removed. After all drains are removed, do the arm-lift exercises 4 times daily. Keep doing this for 4 to 6 weeks after surgery. Taking Care of Your Incision Most women go home wearing a surgi-bra. It keeps the gauze padding (bandage) in place without tape. Your incision is closed on the inside of your skin with stitches that will dissolve in 4-6 weeks. There will be either paper strips called steri-strips or skin glue on the incision. The edges of the steri-strips will curl up in about 1 week and will begin falling off in 1-2 weeks. They can be removed at 2 weeks after surgery (usually in your follow up appointment). If skin glue was used this will flake off in 1-2 weeks. Do not apply any lotions or creams to your incision for the first 2 weeks after surgery. Gauze Padding (Bandage) You may remove the gauze padding (bandage) on your breast 2 days after surgery. It does not need tyler replaced. It is ok if your incision is exposed to the air. The surgi-bra is for your comfort. You don???t need to wear it if it???s not comfortable. Grooming You may shower 2 days after your surgery. No soaking in the tub, hot tubs, or swimming while drains are in place and for 2 weeks after drain removal. Try not to irritate the incision when shaving or putting on deodorant. Use a mirror for these activities. Drain Care You may go home with at least 1 drain placed into your skin. We will teach you how to care for the drain. Numbness and Tingling The upper part of your arm and around the incision on the breast may feel numb and tingly. And you may feel sharp pain like an electric shock in your arm or breast. This is normal and may get better over time. Swelling A small amount of swelling in the breast, chest wall, or armpit is normal during the first month after surgery. Use pillows to raise your whole arm above your heart to help with swelling in the arm or armpit. Taking Blood or Injections If you had a sentinel lymph node biopsy (where only 1-3 lymph nodes are taken out): You can have blood draws, injections, and IV???s in the arm on the same side. If you have had an axillary lymph node dissection (where all lymph nodes are removed and you had a drain after the procedure): Avoid having blood draws, injections, and IV???s in the arm on the side that the lymph node dissection was performed. If there are no other options, tell the provider aboutyour history of having breast cancer and an axillary lymph node dissection. Monthly Breast Self-Exam Do a breast self-exam every month. If you don???t know how to do a breast self- exam, ask your doctor or nurse to teach you how. You can also get a booklet on breast self-exam in the [facility]. Changes You Will Feel 2 Weeks After Surgery You may feel a pain in your armpit, down your arm, or in your breast. This is a normal part of healing. To help you can: Start exercising more 2 weeks after surgery.Take a mild pain medicine like Tylenol or Ibuprofen. Take warm showers. Also, your incision(s) may feel thick and lumpy. This is a normal part of healing. To help you can: 2 weeks after surgery, you can start rubbing the incision with a lotion that has Vitamin E or pure lanolin in it. You can get these kinds of lotions at a drug store, a discount store, or a health food store. You can also rub Vitamin E on the incision. Prick a Vitamin E capsule with a pin. Squeeze out the oil and apply it to the incision. Don???t use perfumed lotions. They may contain alcohol which will irritate your skin. If you have radiation therapy after surgery, ask your radiation doctor before putting on lotion or oil during your radiation therapy. The scar will slowly soften and become borderer in color over several weeks. documented in this encounter Medications at Time of Discharge cyclobenzaprine (Flexeril) 5 MG tablet Take 1 tablet (5 mg) by mouth 3 (three) times a day if needed for muscle spasms. 30 tablet 4 hydroCHLOROthiazide (HYDRODiuril) 12.5 MG tablet Take 1 tablet (12.5 mg) by mouth 1 (one) time each day. hydrOXYzine HCl (Atarax) 25 MG tablet Take 1 tablet (25 mg) by mouth 3 (three) times a day. lisinopril 20 MG tablet Take 1 tablet (20 mg) by mouth 1 (one) time each day. metFORMIN (Glucophage) 1000 MG tablet Take 1 tablet (1,000 mg) by mouth 2 (two) times a day. naloxone (Narcan) 4 mg/0.1 mL nasal spray 1. Give 1 spray in nostril for no/slow breathing or cannot wake after opioid use 2. Call 911 3. Repeat in other nostril if symptoms continue 1 each 4 ondansetron ODT (Zofran-ODT) 4 MG disintegrating tablet Take 1 tablet (4 mg) by mouth every 6 (six) hours if needed for nausea or vomiting. 20 tablet 4 OneTouch Ultra Test test strip 4 oxyCODONE (Roxicodone) 5 MG immediate release tablet Take 1 tablet (5 mg) by mouth every 4 (four) hours if needed for severe pain. 10 tablet 4 Ozempic, 0.25 or 0.5 MG/DOSE, 2 MG/3ML solution pen-injector INJECT 0.5 MG WEEKLY SUBCUTANEOUSLY FOR DIABETES 4 propranolol (Inderal) 20 MG tablet Take 1 tablet (20 mg) by mouth 2 (two) times a day. venlafaxine XR (Effexor XR) 75 MG 24 hr capsule 1 (one) time each day at the same time. 4 acetaminophen (Tylenol) 500 MG tablet Take 2 tablets (1,000 mg) by mouth every 6 (six) hours for 10 days. 80 tablet 4 01/05/20 24 docusate sodium 100 MG capsule Take 100 mg by mouth 2 (two) times a day for 10 days. 10 capsule 4 01/05/20 24 ibuprofen 800 MG tablet Take 1 tablet (800 mg) by mouth every 8 (eight) hours for 10 days. 30 tablet 4 01/05/20 24 documented as of this encounter Miscellaneous Notes * Care Plan - Jorge Larsen RN - 12/26/2023 12:27 PM EST Problem: Adult Inpatient Plan of Care Goal: Plan of Care Review 12/26/2023 1227 by Jorge Larsen RN Outcome: Met 12/26/2023 1047 by Jorge Larsen RN Outcome: Ongoing, Progressing Goal: Patient-Specific Goal (Individualized) 12/26/2023 1227 by Jorge Larsen RN Outcome: Met 12/26/2023 1047 by Jorge Larsen RN Outcome: Ongoing, Progressing Goal: Absence of Hospital-Acquired Illness or Injury 12/26/2023 1227 by Jorge Larsen RN Outcome: Met 12/26/2023 1047 by Jorge Larsen RN Outcome: Ongoing, Progressing Goal: Optimal Comfort and Wellbeing 12/26/2023 1227 by Jorge Larsen RN Outcome: Met 12/26/2023 1047 by Jorge Larsen RN Outcome: Ongoing, Progressing Goal: Readiness for Transition of Care 12/26/2023 1227 by Jorge Larsen RN Outcome: Met 12/26/2023 1047 by Jorge Larsen RN Outcome: Ongoing, Progressing * Care Plan - Jorge Larsen RN - 12/26/2023 10:48 AM EST Problem: Adult Inpatient Plan of Care Goal: Plan of Care Review Outcome: Ongoing, Progressing Goal: Patient-Specific Goal (Individualized) Outcome: Ongoing, Progressing Goal: Absence of Hospital-Acquired Illness or Injury Outcome: Ongoing, Progressing Goal: Optimal Comfort and Wellbeing Outcome: Ongoing, Progressing Goal: Readiness for Transition of Care Outcome: Ongoing, Progressing * Discharge Summary - Roman Conn MD - 12/26/2023 7:39 AM EST Hospitalization Admit Date/Time: 12/25/2023 10:33 AM Admitting Attending: Giana Mays Discharge Date: 12/26/2023 Discharge Attending Physician: Giana Mays MD PCP name and Address: Joyce Shaw, CLOTHING ROOM SUPERVISOR [address] [facility] / [place] [address] Referring provider name and address: No referring provider defined for this encounter. Chief Concern, Brief History of Present Illness, and Hospital Course Patient presented on 12/24 for right mastectomy. This procedure was completed without issues or concerns. Patient recovered well on the floor. Her pain control is adequate. She has no hematomas. Jps with appropriate output. Follow up is scheduled. Surgeries and Procedures Right total mastectomy, flat closure (Right) Medication List .. acetaminophen 500 MG tablet Commonly known as: Tylenol Take 2 tablets (1,000 mg) by mouth every 6 (six) hours for 10 days. cyclobenzaprine 5 MG tablet Commonly known as: Flexeril Take 1 tablet (5 mg) by mouth 3 (three) times a day if needed for muscle spasms. DSS 100 MG capsule Take 100 mg by mouth 2 (two) times a day for 10 days. Effexor XR 75 MG 24 hr capsule Generic drug: venlafaxine XR 1 (one) time each day at the same time. hydroCHLOROthiazide 12.5 MG tablet Commonly known as: HYDRODiuril Take 1 tablet (12.5 mg) by mouth 1 (one) time each day. ibuprofen 800 MG tablet Take 1 tablet (800 mg) by mouth every 8 (eight) hours for 10 days. lisinopril 20 MG tablet Take 1 tablet (20 mg) by mouth 1 (one) time each day. metFORMIN 1000 MG tablet Commonly known as: Glucophage Take 1 tablet (1,000 mg) by mouth 2 (two) times a day. naloxone 4 mg/0.1 mL nasal spray Commonly known as: Narcan 1. Give 1 spray in nostril for no/slow breathing or cannot wake after opioid use 2. Call 911 3. Repeat in other nostril if symptoms continue ondansetron ODT 4 MG disintegrating tablet Commonly known as: Zofran-ODT Take 1 tablet (4 mg) by mouth every 6 (six) hours if needed for nausea or vomiting. OneTouch Ultra Test test strip Generic drug: glucose blood oxyCODONE 5 MG immediate release tablet Commonly known as: Roxicodone Take 1 tablet (5 mg) by mouth every 4 (four) hours if needed for severe pain. Ozempic (0.25 or 0.5 MG/DOSE) 2 MG/3ML solution pen-injector Generic drug: Semaglutide(0.25 or 0.5MG/DOS) INJECT 0.5 MG WEEKLY SUBCUTANEOUSLY FOR DIABETES propranolol 20 MG tablet Commonly known as: Inderal Take 1 tablet (20 mg) by mouth 2 (two) times a day. Where to Get Your Medications These medications were sent to [facility] [place], [place] - 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 Mays Staying Active You need to keep your whole body active after your surgery. Take deep breaths and cough. Walk around your room while you are in the hospital. You don???t have to, and shouldn???t stay in bed. Use your arm for normal activities like bathing and eating. But do not lift anything over 5 pounds until your doctor says it is ok. Do not raise your arm straight over your head on the side where you had your surgery. You should wear button-up shirts for easy dressing. If you wear cotton puller shirts, wear a larger size than normal. Put the arm on the surgery side in first. Then pull the shirt over your head without lifting that arm. Most people may return to driving once the drains are removed. Arm and Shoulder Exercises Stretching exercises are very important after breast surgery. We will show you how to do them. Don???t do any exercised until all of the drains are removed. After all drains are removed, do the arm-lift exercises 4 times daily. Keep doing this for 4 to 6 weeks after surgery. Taking Care of Your Incision Most women go home wearing a surgi-bra. It keeps the gauze padding (bandage) in place without tape. Your incision is closed on the inside of your skin with stitches that will dissolve in 4-6 weeks. There will be either paper strips called steri-strips or skin glue on the incision. The edges of the steri-strips will curl up in about 1 week and will begin falling off in 1-2 weeks. They can be removed at 2 weeks after surgery (usually in your follow up appointment). If skin glue was used this will flake off in 1-2 weeks. Do not apply any lotions or creams to your incision for the first 2 weeks after surgery. Gauze Padding (Bandage) You may remove the gauze padding (bandage) on your breast 2 days after surgery. It does not need tyler replaced. It is ok if your incision is exposed to the air. The surgi-bra is for your comfort. You don???t need to wear it if it???s not comfortable. Grooming You may shower 2 days after your surgery. No soaking in the tub, hot tubs, or swimming while drains are in place and for 2 weeks after drain removal. Try not to irritate the incision when shaving or putting on deodorant. Use a mirror for these activities. Drain Care You may go home with at least 1 drain placed into your skin. We will teach you how to care for the drain. Numbness and Tingling The upper part of your arm and around the incision on the breast may feel numb and tingly. And you may feel sharp pain like an electric shock in your arm or breast. This is normal and may get better over time. Swelling A small amount of swelling in the breast, chest wall, or armpit is normal during the first month after surgery. Use pillows to raise your whole arm above your heart to help with swelling in the arm or armpit. Taking Blood or Injections If you had a sentinel lymph node biopsy (where only 1-3 lymph nodes are taken out): You can have blood draws, injections, and IV???s in the arm on the same side. If you have had an axillary lymph node dissection (where all lymph nodes are removed and you had a drain after the procedure): Avoid having blood draws, injections, and IV???s in the arm on the side that the lymph node dissection was performed. If there are no other options, tell the provider aboutyour history of having breast cancer and an axillary lymph node dissection. Monthly Breast Self-Exam Do a breast self-exam every month. If you don???t know how to do a breast self- exam, ask your doctor or nurse to teach you how. You can also get a booklet on breast self-exam in the [facility]. Changes You Will Feel 2 Weeks After Surgery You may feel a pain in your armpit, down your arm, or in your breast. This is a normal part of healing. To help you can: Start exercising more 2 weeks after surgery.Take a mild pain medicine like Tylenol or Ibuprofen. Take warm showers. Also, your incision(s) may feel thick and lumpy. This is a normal part of healing. To help you can: 2 weeks after surgery, you can start rubbing the incision with a lotion that has Vitamin E or pure lanolin in it. You can get these kinds of lotions at a drug store, a discount store, or a health food store. You can also rub Vitamin E on the incision. Prick a Vitamin E capsule with a pin. Squeeze out the oil and apply it to the incision. Don???t use perfumed lotions. They may contain alcohol which will irritate your skin. If you have radiation therapy after surgery, ask your radiation doctor before putting on lotion or oil during your radiation therapy. The scar will slowly soften and become borderer in color over several weeks. Outpatient Follow-Up Future Appointments Date Time Provider Department Center 01/12/2024 9:30 AM Sean Rod MD [facility] 01/16/2024 9:30 AM Giana Mays MD [facility] 03/05/2024 8:00 [facility] 03/05/2024 9:00 AM [facility] US 1 VIJAY Castro 03/05/2024 10:00 AM [facility] Test Results Pending At Discharge Pending Labs Order Current Status Surgical Pathology Exam Collected (12/25/23 7086) Pertinent Physical Exam At Time of Discharge Physical Exam Constitutional: Appearance: Normal appearance. HENT: Head: Normocephalic and atraumatic. Right Ear: External ear normal. Left Ear: External ear normal. Nose: Nose normal. Mouth/Throat: Mouth: Mucous membranes are moist. Pharynx: Oropharynx is clear. Eyes: Extraocular Movements: Extraocular movements intact. Pupils: Pupils are equal, round, and reactive to light. Cardiovascular: Rate and Rhythm: Normal rate and regular rhythm. Pulmonary: Effort: Pulmonary effort is normal. No respiratory distress. Abdominal: General: Abdomen is flat. Palpations: Abdomen is soft. Musculoskeletal: General: Normal range of motion. Cervical back: Normal range of motion and neck supple. Skin: General: Skin is warm and dry. Comments: Incision c/d/I, no hematoma, Jps with appropriate output Neurological: General: No focal deficit present. Mental Status: She is alert and oriented to person, place, and time. Psychiatric: Mood and Affect: Mood normal. Behavior: Behavior normal. Discharge Disposition/Condition Disposition: Home Condition: Stable (s/sx potential problems absent or manageable) I spent < 30 minutes of patient care and instruction time in preparation for this discharge. Cosigned by Giana Mays MD at 12/26/2023 9:14 AM EST Associated attestation - Giana Mays MD - 12/26/2023 9:14 AM EST I saw and evaluated the patient with the resident/fellow. I discussed the case with the resident/fellow and agree with the findings and plan as documented. * Anesthesia PACU Signout - Ismael Meadows DO - 12/25/2023 11:09 PM EST Patient: Ivon ClintonBrien Anesthesia Type: general Vitals Value Taken Time BP 100/57 12/25/232130 Temp 37.3 ??C (99.1 ??F) 12/25/232099 Pulse 104 12/25/235 Resp 15 12/25/232129 SpO2 93 % 12/25/232152 Vitals shown include unfiled device data. Anesthesia PACU Signout Patient location during evaluation: PACU Patient participation: complete - patient participated Level of consciousness: baseline and awake Pain management: adequate (pain score 0-3) Airway patency: natural airway Hydration status: acceptable PONV: none Cardiovascular status: acceptable and hemodynamically stable Respiratory status: acceptable, spontaneous ventilation, unassisted, nonlabored ventilation and nasal cannula Discharge Disposition: admit to inpatient unit Cosigned by Aki Gibson MD at 12/26/2023 6:40 AM EST Associated attestation - Aki Gibson MD - 12/26/2023 6:40 AM EST Signature Only * Care Plan - Radha Marcelo RN - 12/25/2023 10:47 PM EST Problem: Adult Inpatient Plan of Care Goal: Plan of Care Review Outcome: Ongoing, Progressing * Significant Event - Curtis Sarkar DO - 12/25/2023 9:32 PM EST Images from the original note were not included. [facility] Department of Surgery Division of Surgical Oncology Post Operative Check: Subjective: Procedure: Right total mastectomy, flat closure - ND MASTECTOMY, SIMPLE, COMPLETE Ivon Dowd is a 33 y.o. female who is POD 0. Patient was assessed at bedside and is resting comfortably.Patient denies fever, chills, nausea, vomiting, chest pain, or SOB. Surgical site covered and appropriately tender. Incisions are intact with no oozing. Pain Control: Tylenol, ibuprofen, flexeril Objective: Vitals: Vitals: 12/25/23 2115 BP: 114/64 Pulse: 106 Resp: 16 Temp: SpO2: 95% Physical Exam: GEN: No apparent distress. Lethargic from anesthesia. NEURO: Awake, alert and oriented x3. No focal deficits. HENT: NCAT. Trachea appears midline. EYES: Symmetric lids. No visible conjunctival hemorrhage. CV: Appears well-perfused. Regular rhythm. Normal rate.' Breast: Incisions covered, no active bleeding from sites. RESP: Symmetric chest rise. Non-labored breathing. ABD: Soft supple, no masses MSK: Moves all extremities. No obvious deformities. SKIN: Warm and dry. Without pallor. PSYCH: Appropriate mood and affect. Normal speech and content. Incisions: covered Laboratory: CBC WBC @LLVAL1 8(WBC)@ Hgb ?? PLT ?? HCT ?? Coags: INR ?? PTT ?? antiXa ?? BMP Na ?? Cl ?? BUN ?? Gluc ?? K ?? CO2 ?? Creat ?? Ca ?? iCa ?? Mg ?? Phos ?? ABG pH ?? pCO2 ?? pO2 ?? SPO2 ?? FIO2 ?? HCO3 ?? BE ?? Lactate ?? LFTs AST ?? AlkPhos ?? T Prot ?? ALT ?? Bili ?? Alb ?? D.Bili ?? Assessment and Plan: Ivon Dowd is a 33 y.o. female who is POD 0 s/p Right total mastectomy, flat closure 12643 - ND MASTECTOMY, SIMPLE, COMPLETE is recovering appropriately in the current post op period. Will continue to monitor. Diet: Regular Pain management: Tylenol, ibuprofen, flexeril Level of care: Continue Current Level of Care I have answered and addressed all issues and concerns from the patient and nursing staff. I have notified senior resident/attending butadiene converter helper with any issues or concerns. 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 She was placed supine on the table. She underwent GETA. A time out was performed and perioperative antibiotics were given. An elliptical incision was made by dividing the skin sharply. We then created subcutaneous mastectomy flaps, the glandular tissue from the subcutaneous fat, superiorly to the level of the clavicle, inferiorly to the inframammary fold, laterally to the latissimus and medially to the sternocostal border. The breast was then reflected off the pectoralis muscle, taking the fascia with it. The specimen was marked short stitch superior and longstitch lateral. It was passed off to pathology for permanent. Then, tissue was rearranged bilaterally in the inferior and superior flaps by mobilizing the soft tissue and removing excessive tissue to optimize aesthetically flat closure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 Every 10 min PRN, 2 doses, Starting on Mon12/25/23 at 1956, Until Mon12/25/23 at 2030, Routine, Recovery (Phase I only), pain score of 9-10 out of 10 Given 12/25/2023 8:30 PM EST 0.5 mg Given 12/25/2023 8:21 PM EST 0.5 mg ibuprofen tablet 800 mg 800 mg, Oral, Every 8 hours scheduled, First dose on Mon12/25/23 at 2200, Until Discontinued, Routine, Recovery(Phase II-Outpatient)/On Unit(Inpatient) Given 12/26/2023 5:10 AM EST 800 mg Given 12/25/2023 10:34 PM EST 800 mg insulin lispro (Admelog) 100 units/mL injection - Correction - Resistant Dose 0-10 Units, Subcutaneous, 3 times daily with meals, First dose on Mon12/26/23 at 0830, Until Discontinued, Routine, Recovery(Phase II-Outpatient)/On Unit(Inpatient) Given 12/26/2023 8:26 AM EST 4 Units Left Lower Abdomen insulin lispro (Admelog) injection - Correction - Nighttime Dose 0-3 Units, Subcutaneous, 2 times nightly (2100 & 0300), First dose on Mon12/26/23 at 2100, Until Discontinued, Routine, Recovery(Phase II-Outpatient)/On Unit(Inpatient) lactated Ringer's infusion 20 mL/hr, Intravenous, Once, 1 dose, On Mon12/25/23 at 2045, Routine Continued from OR 12/25/2023 8:05 PM EST 20 mL/hr 20 mL/hr ondansetron (Zofran) 4 MG/5ML solution 4 mg 4 mg, Oral, Every 6 hours PRN, Starting on Mon12/25/23 at 1953, Until Mon12/26/23 at 1451, Routine, Recovery(Phase II-Outpatient)/On Unit(Inpatient), nausea, vomiting ondansetron (Zofran) injection 4 mg 4 mg, Intravenous, Once as needed, 1 dose, Starting on Mon12/25/23 at 1956, Until Mon12/25/23 at 202, Routine, Recovery (Phase I only), nausea, vomiting Given 12/25/2023 8:21 PM EST 4 mg ondansetron (Zofran) injection 4 mg 4 mg, Intravenous, Every 6 hours PRN, Starting on Mon12/25/23 at 1953, Until Mon12/26/23 at 1451, Routine, Recovery(Phase II-Outpatient)/On Unit(Inpatient), vomiting, nausea ondansetron ODT (Zofran-ODT) disintegrating tablet 4 mg 4 mg, Oral, Every 6 hours PRN, Starting on Mon12/25/23 at 1953, Until Mon12/26/23 at 1451, Routine, Recovery(Phase II-Outpatient)/On Unit(Inpatient), nausea, vomiting oxyCODONE (Roxicodone) immediate release tablet 10 mg 10 mg, Oral, Once as needed, 2 doses, Starting on Mon12/25/23 at 1956, Until Mon12/25/23 at 2203, Routine, Recovery (Phase I only), pain score of 6-8 out of 10 Given 12/25/2023 8:21 PM EST 10 mg oxyCODONE (Roxicodone) immediate release tablet 5 mg 5 mg, Oral, Every 4 hours PRN, Starting on Mon12/25/23 at 1953, Until Mon12/26/23 at 1451, Routine, Recovery(Phase II-Outpatient)/On Unit(Inpatient), severe pain Given 12/26/2023 12:36 PM EST 5 mg Given 12/26/2023 8:30 AM EST 5 mg Povidone-Iodine 5 % swab solution 1 Application Nasal, Once, 1 dose, On Mon12/25/23 at 1345, Routine Given 12/25/2023 1:05 PM EST 1 Application sodium chloride 0.9 % flush 10 mL 10 mL, Intravenous, Every 12 hours, First dose on Mon12/25/23 at 2045, Until Discontinued, Routine, Recovery(Phase II-Outpatient)/On Unit(Inpatient) Given 12/26/2023 8:27 AM EST 10 mL Given 12/25/2023 8:14 PM EST 10 mL sodium chloride 0.9 % flush 10 mL 10 mL, Intravenous, As needed, Starting on Mon12/25/23 at 1953, Until Mon12/26/23 at 1451, Routine, Recovery(Phase II-Outpatient)/On Unit(Inpatient), line care venlafaxine XR (Effexor-XR) 24 hr capsule 75 mg 75 mg, Oral, Every 24 hours, First dose on Mon12/26/23 at 0800, Until Discontinued, Routine Given 12/26/2023 8:26 AM EST 75 mg documented in this encounter Active and Recently Administered Medications Due to Daylight Saving Time, this section may contain times in both EDT and EST. Scheduled Medication Order 12/24/2023 12/25/2023 12/26/2023 acetaminophen (Tylenol) tablet 1,000 mg 1,000 mg, Oral, Every 6 hours scheduled, First dose on Mon12/26/23 at 0000, Until Discontinued, Routine, Recovery(Phase II-Outpatient)/On Unit(Inpatient) 2322 (Given - Provider: Radha Marcelo RN) 0510 (Given - Provider: Radha Marcelo RN)1141 (Given - Provider: Jorge Larsen, RADHA) docusate sodium (Colace) capsule 100 mg 100 mg, Oral, 2 times daily, First dose on Mon12/25/23 at 2100, Until Discontinued, Routine, Recovery(Phase II-Outpatient)/On Unit(Inpatient) 2014 (Not Given - Provider: Jannie Mclaughlin - Reason: Patient/family refused) 0826 (Not Given - Provider: Jorge Larsen, RADHA - Reason: Patient/family refused) ibuprofen tablet 800 mg 800 mg, Oral, Every 8 hours scheduled, First dose on Mon12/25/23 at 2200, Until Discontinued, Routine, Recovery(Phase II-Outpatient)/On Unit(Inpatient) 2234 (Given - Provider: Radha Marcelo RN) 0510 (Given - Provider: Radha Marcelo RN)1400 (Canceled Entry - Provider: Automatic Discharge Provider - Comment: Automatically canceled at discontinue of medication order) insulin lispro (Admelog) 100 units/mL injection - Correction - Resistant Dose 0-10 Units, Subcutaneous, 3 times daily with meals, First dose on Mon12/26/23 at 0830, Until Discontinued, Routine, Recovery(Phase II-Outpatient)/On Unit(Inpatient) 825 (Given - Provid er: Jorge aLrsen RN)1136 (Not Given - Provider: Jorge Larsen RN - Reason: Order changed - Comment: Pt is being discharged) insulin lispro (Admelog) injection - Correction - Nighttime Dose 0-3 Units, Subcutaneous, 2 times nightly (2100 & 0300), First dose on Mon12/26/23 at 2100, Until Discontinued, Routine, Recovery(Phase II-Outpatient)/On Unit(Inpatient) lactated Ringer's infusion (COMPLETED) 20 mL/hr, Intravenous, Once, 1 dose, On Mon12/25/23 at 204, Routine 2004 (Continued from OR - Provider: Jannie Mclaughlin)2099 (Canceled Entry - Provider: Jannie Mclaughlin) Povidone-Iodine 5 % swab solution 1 Application (COMPLETED) Nasal, Once, 1 dose, On Mon12/25/23 at 1345, Routine 1305 (Given - Provider: Dora Heath RN) sodium chloride 0.9 % flush 10 mL(Linked Group 1) 10 mL, Intravenous, Every 12 hours, First dose on Mon12/25/23 at 204, Until Discontinued, Routine, Recovery(Phase II-Outpatient)/On Unit(Inpatient) 2013 (Given - Provider: Jannie Mclaughlin) 826 (Given - Provider: Jorge Larsen RN) venlafaxine XR (Effexor-XR) 24 hr capsule 75 mg 75 mg, Oral, Every 24 hours, First dose on Mon12/26/23 at 0800, Until Discontinued, Routine 08 (Given - Provid er: Jorge Larsen RN) PRN Medication Order 12/24/2023 12/25/2023 12/26/2023 bupivacaine PF (Marcaine) 0.25 % injection (CANCELED) As needed, Starting on Mon12/25/23 at 1933, Until Mon12/25/23 at 2000, Routine, Intraprocedure 1932 (Given - Provider: Giana Mays MD) cyclobenzaprine (Flexeril) tablet 5 mg 5 mg, Oral, 3 times daily PRN, Starting on Mon12/25/23 at 1953, Until Mon12/26/23 at 1451, Routine, Recovery(Phase II-Outpatient)/On Unit(Inpatient), muscle spasms 2020 (Given - Provider: Jannie Mclaughlin) dextrose 10 % (D10W) bolus 125 mL(Linked Group 2) 125 mL, Intravenous, Every 15 min PRN, Starting on Mon12/26/23 at 0703, Until Mon12/26/23 at 1451, Administer over 15 Minutes, Routine, low blood sugar per Hypoglycemia Prevention and Treatment protocol. droperidol (Inapsine) injection 0.625 mg (COMPLETED) 0.625 mg, Intravenous, Once as needed, 1 dose, Starting on Mon12/25/23 at 195, Until Mon12/25/23 at 2009, Routine, Recovery (Phase I only), nausea, vomiting 2009 (Given - Provider: Jannie Mclaughlin) fentaNYL (Sublimaze) injection 50 mcg (CANCELED) 50 mcg, Intravenous, Every 5 min PRN, 2 doses, Starting on Mon12/25/23 at 1956, Until Mon12/25/23 at 2203, Routine, Recovery (Phase I only), pain score of 5-8 out of 10 2053 (Given - Provider: Jannie Mclaughlin) glucagon (human recombinant) injection 1 mg(Linked Group 2) 1 mg, Intramuscular, Every 15 min PRN, Starting on Mon12/26/23 at 0703, Until Mon12/26/23 at 1451, Routine, Recovery(Phase II-Outpatient)/On Unit(Inpatient), low blood sugar per Hypoglycemia Prevention and Treatment protocol glucose (Glutose) 40 % oral gel 15 grams of glucose(Linked Group 2) 15 grams of glucose, Sublingual, Every 15 min PRN, Starting on Mon12/26/23 at 0703, Until Mon12/26/23 at 1451, Routine, Recovery(Phase II-Outpatient)/On Unit(Inpatient), low blood sugar, per Hypoglycemia Prevention and Treatment protocol HYDROmorphone (Dilaudid) injection 0.5 mg (COMPLETED) 0.5 mg, Intravenous, Every 10 min PRN, 2 doses, Starting on Mon12/25/23 at 1956, Until Mon12/25/23 at 2030, Routine, Recovery (Phase I only), pain score of 9-10 out of 10 2020 (Given - Provider: Jannie Mclaughlin)2029 (Given - Provider: Jannie Mclaughlin) lidocaine-EPINEPHrine (Xylocaine W/EPI) 1 %-[id number] injection (CANCELED) As needed, Starting on Mon12/25/23 at 1933, Until Mon12/25/23 at 2000, Routine, Intraprocedure 1932 (Given - Provider: Giana Mays MD) ondansetron (Zofran) 4 MG/5ML solution 4 mg(Linked Group 3) 4 mg, Oral, Every 6 hours PRN, Starting on Mon12/25/23 at 1953, Until Mon12/26/23 at 1451, Routine, Recovery(Phase II-Outpatient)/On Unit(Inpatient), nausea, vomiting ondansetron (Zofran) injection 4 mg (COMPLETED) 4 mg, Intravenous, Once as needed, 1 dose, Starting on Mon12/25/23 at 1956, Until Mon12/25/23 at 2020, Routine, Recovery (Phase I only), nausea, vomiting 2020 (Given - Provider: Jannie Mclaughlin) ondansetron (Zofran) injection 4 mg(Linked Group 3) 4 mg, Intravenous, Every 6 hours PRN, Starting on Mon12/25/23 at 1953, Until Mon12/26/23 at 1451, Routine, Recovery(Phase II-Outpatient)/On Unit(Inpatient), vomiting, nausea ondansetron ODT (Zofran-ODT) disintegrating tablet 4 mg(Linked Group 3) 4 mg, Oral, Every 6 hours PRN, Starting on Mon12/25/23 at 195, Until Mon12/26/23 at 1451, Routine, Recovery(Phase II-Outpatient)/On Unit(Inpatient), nausea, vomiting oxyCODONE (Roxicodone) immediate release tablet 10 mg (CANCELED)(Linked Group 4) 10 mg, Oral, Once as needed, 2 doses, Starting on Mon12/25/23 at 1956, Until Mon12/25/23 at 2203, Routine, Recovery (Phase I only), pain score of 6-8 out of 10 2020 (Given - Provider: Jannie Mclaughlin) oxyCODONE (Roxicodone) immediate release tablet 5 mg 5 mg, Oral, Every 4 hours PRN, Starting on Mon12/25/23 at 1952, Until Mon12/26/23 at 145, Routine, Recovery(Phase II-Outpatient)/On Unit(Inpatient), severe pain 0830 (Given - Provid er: Jorge Larsen RN)1236 (Given - Provider: Jorge Larsen RN) sodium chloride 0.9 % flush 10 mL(Linked Group 1) 10 mL, Intravenous, As needed, Starting on Mon12/25/23 at 195, Until Mon12/26/23 at 1451, Routine, Recovery(Phase II-Outpatient)/On Unit(Inpatient), line care Linked Groups Order Group 1: Insert peripheral IV (CANCELED) Once, On Mon12/25/23 at 1953, For 1 occurrence, Recovery(Phase II-Outpatient)/On Unit(Inpatient) And Saline lock IV (CANCELED) Once, On Mon12/25/23 at 1953, For 1 occurrence, Recovery(Phase II-Outpatient)/On Unit(Inpatient) And sodium chloride 0.9 % flush 10 mLJump to med 10 mL, Intravenous, Every 12 hours, First dose on Mon12/25/23 at 204, Until Discontinued, Routine, Recovery(Phase II-Outpatient)/On Unit(Inpatient) And sodium chloride 0.9 % flush 10 mLJump to med 10 mL, Intravenous, As needed, Starting on Mon12/25/23 at 1953, Until Mon12/26/23 at 1451, Routine, Recovery(Phase II-Outpatient)/On Unit(Inpatient), line care Group 2: glucose (Glutose) 40 % oral gel 15 grams of glucoseJump to med 15 grams of glucose, Sublingual, Every 15 min PRN, Starting on Mon12/26/23 at 0703, Until Mon12/26/23 at 1451, Routine, Recovery(Phase II-Outpatient)/On Unit(Inpatient), low blood sugar, per Hypoglycemia Prevention and Treatment protocol Or dextrose 10 % (D10W) bolus 125 mLJump to med 125 mL, Intravenous, Every 15 min PRN, Starting on Mon12/26/23 at 0703, Until Mon12/26/23 at 145, Administer over 15 Minutes, Routine, low blood sugar per Hypoglycemia Prevention and Treatment protocol. Or glucagon (human recombinant) injection 1 mgJump to med 1 mg, Intramuscular, Every 15 min PRN, Starting on Mon12/26/23 at 0703, Until Mon12/26/23 at 1451, Routine, Recovery(Phase II-Outpatient)/On Unit(Inpatient), low blood sugar per Hypoglycemia Prevention and Treatment protocol Group 3: ondansetron ODT (Zofran-ODT) disintegrating tablet 4 mgJump to med 4 mg, Oral, Every 6 hours PRN, Starting on Mon12/25/23 at 1953, Until Mon12/26/23 at 1451, Routine, Recovery(Phase II-Outpatient)/On Unit(Inpatient), nausea, vomiting Or ondansetron (Zofran) injection 4 mgJump to med 4 mg, Intravenous, Every 6 hours PRN, Starting on Mon12/25/23 at 1953, Until Mon12/26/23 at 1451, Routine, Recovery(Phase II-Outpatient)/On Unit(Inpatient), vomiting, nausea Or ondansetron (Zofran) 4 MG/5ML solution 4 mgJump to med 4 mg, Oral, Every 6 hours PRN, Starting on Mon12/25/23 at 1953, Until Mon12/26/23 at 1451, Routine, Recovery(Phase II-Outpatient)/On Unit(Inpatient), nausea, vomiting Group 4: oxyCODONE (Roxicodone) immediate release tablet 5 mg (CANCELED) 5 mg, Oral, Once as needed, 2 doses, Starting on Mon12/25/23 at 1956, Until Mon12/25/23 at 2203, Routine, Recovery (Phase I only), pain score of 3-5 out of 10 Or oxyCODONE (Roxicodone) immediate release tablet 10 mg (CANCELED)Jump to med 10 mg, Oral, Once as needed, 2 doses, Starting on Mon12/25/23 at 1956, Until Mon12/25/23 at 2203, Routine, Recovery (Phase I only), pain score of 6-8 out of 10 documented in this encounter Additional Health Concerns Assessment Noted Time PHQ-9 Depression Total Score: 14 024 9:15 AM EDT A fall risk assessment has been complete d for the patient 10/06/2023 10:13 AM EDT A Body Mass Index follow-up plan has been documented for the patient 12/26/2023 12:24 PM EST documented as of this encounter Care Teams Hospital Clinic Assistant Relationship Specialty Start Date End Date Joyce Shaw APRN [address] [place] [address] PCP - General 09/11/23 documented as of this encounter
--- OUTSIDE RECORDS SUMMARY | 2024-01-11 19:05 | XMS_ITS | Encounter Summary ---
Author Organization [employer] Address [address] [place] [address] Care Team Providers Care Rn Provider Relations Name Role Phone Unavailable Primary Care Provider Unavailabl e Encounter Details Date Type Department Care Team (Late st Contact Info) Description 07/12/2019 Transcribed Document [facility] Family Medicine [facility] [address] ProviderPreston MD [facility] [place], [place] [id number] 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 Tobacco Use Types Packs/Day Years Used Date Smoking Tobacco: Never Assessed Comments Unknown Sex and Gender Information Value Date Recorded Sex Assigned at Not on file Legal Sex Female 6:58 PM CDT Gender Identity Not on file Sexual Orientation Not on file documented as of this encounter Miscellaneous Notes * Cerner Conversion Note - Preston Hinds MD - 07/12/2019 11:13 AM CDT [facility] Main OR IntraOp Summary Primary Physician: ZONIA PENALOZA MD-SUR Finalized Date/Time: 07/14/19 19:46:30 Pt. Name: ARIADNE MARTINEZ D.O.B./Sex: 1990 Female Med Rec #: [id number] Physician: ZONIA PENALOZA MD-SUR Financial #: [id number] Pt. Type: O Room/Bed: Admit/Disch: 07/12/19 07:37:00 - 07/12/19 14:52:00 Institution: [facility] IntraOp Case Attendance Entry 1 Entry 2 Entry 3 Case Attendee ZONIA PENALOZA MD-Naya Jackson Crna CELLAROSI-YORBA, MARIA, MD-ANS Role Performed Surgeon/Proceduralist, PIN ATTACHER/Nurse Associate Producer Anesthesiologist of First Record Time In 07/12/19 10:54:00 07/12/19 10:54:00 07/12/19 10:54:00 Time Out 07/12/19 11:48:00 07/12/19 11:48:00 07/12/19 11:48:00 Procedure Laparoscopy Diagnostic, Laparoscopy Diagnostic, Laparoscopy Diagnostic, Appendectomy Appendectomy Appendectomy Other Attendee Superficial Wound Closed By: Last Modified By: Abby Olsen RN Hauer, Jessica, RN Hauer, Jessica, RN 07/12/19 11:49:09 07/12/19 11:49:09 07/12/19 11:49:09 Entry 4 Entry 5 Entry 6 Case Attendee TARUN NEWTON, iM Bermudez, RADHA Role Performed Scrub, Spinning Lathe Operator Hydraulic, First Chute Man, Second Time In 07/12/19 10:54:00 07/12/19 10:54:00 07/12/19 10:54:00 Time Out 07/12/19 11:12:00 07/12/19 11:48:00 07/12/19 11:09:00 Procedure Laparoscopy Diagnostic, Laparoscopy Diagnostic, Laparoscopy Diagnostic, Appendectomy Appendectomy Appendectomy Other Attendee Superficial Wound Closed By: Last Modified By: Abby Olsen RN Hauer, Jessica, RN Hauer, Jessica, RN 07/12/19 11:49:09 07/12/19 11:49:31 07/12/19 11:49:09 Entry 7 Entry 8 Entry 9 Case Attendee Abby Olsen, Sony Espinal, REP-SSI OTHER, ATTENDEE Role Performed Chute Man, First Electrician, Ancillary Electrician, Ancillary Time In 07/12/19 10:54:00 07/12/19 10:54:00 07/12/19 10:54:00 Time Out 07/12/19 11:48:00 07/12/19 11:48:00 07/12/19 11:48:00 Procedure Laparoscopy Diagnostic, Laparoscopy Diagnostic, Laparoscopy Diagnostic, Appendectomy Appendectomy Appendectomy Other Attendee Lucía Winston Superficial Wound Closed By: Last Modified By: Abby Olsen RN Hauer, Jessica, RN Hauer, Jessica, RN 07/12/19 11:49:09 07/12/19 11:49:09 07/12/19 11:49:09 Entry 10 Case Attendee Marianna Reese, Local Truck Driver Role Performed Scrub, First Time In 07/12/19 11:12:00 Time Out 07/12/19 11:48:00 Procedure Laparoscopy Diagnostic, Appendectomy Other Attendee lunch relief Superficial Wound Closed By: Last Modified By: Abby Olsen RN 07/12/19 11:49:09 [facility] IntraOp Case Attendance Audit 07/12/19 11:49:31 Home Care Specialist: [id number] Modifier: [id number] <*> Time Out 07/12/19 11:48:00 4 <*> Procedure Laparoscopy Diagnostic, Appendectomy 07/12/19 11:49:09 Home Care Specialist: [id number] Modifier: [id number] 1 <+> Time Out 1 <*> Procedure Laparoscopy Diagnostic, Appendectomy 2 <+> Time Out 2 <*> Procedure Laparoscopy Diagnostic, Appendectomy 3 <+> Time Out 3 <*> Procedure Laparoscopy Diagnostic, Appendectomy 4 <+> Time Out 4 <*> Procedure Laparoscopy Diagnostic, Appendectomy 5 <+> Time Out 5 <*> Procedure Laparoscopy Diagnostic, Appendectomy 6 <*> Procedure Laparoscopy Diagnostic, Appendectomy 7 <+> Time Out 7 <*> Procedure Laparoscopy Diagnostic, Appendectomy 8 <+> Time Out 8 <*> Procedure Laparoscopy Diagnostic, Appendectomy 9 <+> Time Out 9 <*> Procedure Laparoscopy Diagnostic, Appendectomy 10 <+> Time Out 10 <*> Procedure Laparoscopy Diagnostic, Appendectomy 07/12/19 11:48:50 Home Care Specialist: [id number] Modifier: [id number] 1 <*> Procedure Laparoscopy Diagnostic, Appendectomy 2 <+> Time In 2 <*> Procedure Laparoscopy Diagnostic, Appendectomy 3 <+> Time In 3 <*> Procedure Laparoscopy Diagnostic, Appendectomy 4 <+> Time In 4 <*> Procedure Laparoscopy Diagnostic, Appendectomy 5 <+> Time In 5 <*> Procedure Laparoscopy Diagnostic, Appendectomy 6 <+> Time In 6 <*> Procedure Laparoscopy Diagnostic, Appendectomy 7 <+> Time In 7 <*> Procedure Laparoscopy Diagnostic, Appendectomy 8 <+> Time In 8 <*> Procedure Laparoscopy Diagnostic, Appendectomy 9 <+> Time In 9 <*> Procedure Laparoscopy Diagnostic, Appendectomy 10 <*> Procedure Laparoscopy Diagnostic, Appendectomy 07/12/19 11:12:34 Home Care Specialist: [id number] Modifier: [id number] 1 <+> Time In 1 <*> Procedure Laparoscopy Diagnostic, Appendectomy <+> 2 Case Attendee <+> 2 Role Performed <+> 2 Procedure <+> 3 Case Attendee <+> 3 Role Performed <+> 3 Procedure <+> 4 Case Attendee <+> 4 Role Performed <+> 4 Procedure <+> 5 Case Attendee <+> 5 Role Performed <+> 5 Procedure <+> 6 Case Attendee <+> 6 Role Performed <+> 6 Time Out <+> 6 Procedure <+> 7 Case Attendee <+> 7 Role Performed <+> 7 Procedure <+> 8 Case Attendee <+> 8 Role Performed <+> 8 Procedure <+> 9 Case Attendee <+> 9 Role Performed <+> 9 Procedure <+> 9 Other Attendee <+> 10 Case Attendee <+> 10 Role Performed <+> 10 Time In <+> 10 Procedure <+> 10 Other Attendee [facility] IntraOp Case Times Entry 1 Patient In Room Time 07/12/19 10:54:00 Out Room Time 07/12/19 11:48:00 Anesthesia Start Time 07/12/19 10:54:00 Stop Time 07/12/19 11:48:00 Surgery / Procedure Times Start Time 07/12/19 11:13:00 Stop Time 07/12/19 11:42:00 Last Modified By: Abby Olsen RN 07/12/19 11:48:54 [facility] IntraOp Case Times Audit 07/12/19 11:48:54 Home Care Specialist: [id number] Modifier: [id number] <+> 1 Out Room Time <+> 1 Stop Time 07/12/19 11:41:12 Home Care Specialist: [id number] Modifier: [id number] <+> 1 Stop Time 07/12/19 11:14:44 Home Care Specialist: [id number] Modifier: [id number] <+> 1 Start Time [facility] IntraOp Cautery Entry 1 ESU Identification Cautery Type Monopolar ESU ID Number [id number] ID Type Hospital Number Cautery Settings Cut Setting 30 Coag Setting 30 ESU Grounding Pad Ground Pad Type Adult Grounding Pad Site Right thigh Grounding Pad Abby Olsen RN Applied By Grounding Pad Site Intact Skin Condition Before Cautery Grounding Pad Site Intact Skin Condition After Cautery Last Modified By: Abby lOsen RN 07/12/19 11:15:38 [facility] IntraOp Cautery Audit 07/12/19 11:15:38 Home Care Specialist: [id number] Modifier: [id number] <+> 1 Cautery Type <+> 1 Grounding Pad Site <+> 1 ID Number <+> 1 Grounding Pad Applied By [facility] IntraOp Communication Entry 1 Communication To Family/Significant other Comment start Communication By Abby Olsen RN Date and Time 07/12/19 11:15:00 Last Modified By: Abby Olsen RN 07/12/19 11:15:47 [facility] IntraOp Counts Verification Entry 1 Procedure Laparoscopy Diagnostic, Appendectomy Count Info Count Type Sponge, Sharps, Instrument, Miscellaneous Counts Verification Baseline/pre-procedure Sequence Counts Performed By Count Performed By TARUN NEWTON (Scrub) Count Performed By Abby Olsen RN (RN) Last Modified By: Abby Olsen RN 07/12/19 11:16:03 [facility] IntraOp Counts Final Entry 1 Procedure Laparoscopy Diagnostic, Appendectomy Final Count Info Count Type Sponge, Sharps, Miscellaneous Counts Verification Skin Closure/end of Sequence procedure Count Results Correct, surgeon notified Counts Performed By Count Performed By Marianna Reese (Scrub) Local Truck Driver Count Performed By Abby Olsen RN (RN) Last Modified By: Abby Olsen RN 07/12/19 11:38:42 [facility] IntraOp Counts Final Audit 07/12/19 11:38:42 Home Care Specialist: [id number] Modifier: [id number] 1 <*> Procedure Laparoscopy Diagnostic, Appendectomy 1 <+> Count Performed By (Scrub) 1 <+> Count Performed By (RN) [facility] IntraOp Cultures and Spec Summary Entry 1 Cultrures and Specimens Specimen Ordered: Yes Test(s) Routine/Path-Lab Requested/Final Disposition Last Modified By: Abby Olsen RN 07/12/19 11:16:16 General Comments: APPENDIX [facility] IntraOp Departure from OR Entry 1 Integumentary Assessment Integumentary WDL with patient Assessment WDL specific variances Patient's Normal surgical incisions Integumentary Variance(s) Transfer/Handoff Transfer to PACU Phase I Handoff Method Bedside/Face to face, Phone call Post-op Transport Stretcher/Gurney Via Patient Transport CROW DUTTON, Accompanied by Naya Smith Crna Last Modified By: Abby Olsen RN 07/12/19 11:16:37 [facility] IntraOp Dressing and Packing Entry 1 Type Dressing Location OPSITE Wound Dressing Item Skin Closure Glue Applied By ZONIA PENALOZA MD-JILLIAN Last Modified By: Abby Olsen RN 07/12/19 11:52:10 [facility] IntraOp Dressing and Packing Audit 07/12/19 11:52:10 Home Care Specialist: [id number] Modifier: [id number] 1 <*> Wound Dressing Item Skin Closure Glue, 4x4's, ABD dressing pad, Abdominal binder [facility] IntraOp Fire Risk Assessment Entry 1 Fire Info Surgical Site or 0- No Incision Above the Xyphoid Open O2 Source 0- No (Mask or Cannula) Available Ignition 1- Yes (ESU, Laser, Light Source) Fire Risk 1 Assessment Score Fire Score Fire Risk Yes Assessment Complete Fire Risk Abby Olsen RN Assessment Verified By Fire Risk 07/12/19 11:13:00 Assessment Verified Date/Time Fire Risk High Risk Protocol Yes Implemented Standard Fire Yes Safety Precautions Followed Last Modified By: Abby Olsen RN 07/12/19 11:17:09 [facility] IntraOp General Case Police Chief Deputy 1 Case Information OR [address] Case Level 1 Room Verified Yes Wound Class II - Clean-Contaminated Specialty SN General Anesthesia Type General ASA Class 3 Diagnosis Preop Diagnosis Chronic lower quadrant pain Postop Same As Preop No Postop Diagnosis Chronic lower quadrant pain, see md post op note Last Modified By: Abby Olsen RN 07/12/19 11:18:02 [facility] IntraOp Intraoperative Assessment Entry 1 Handoff Method Bedside/Face to face, Online nursing summary Valid History / Yes Physical in Chart Preoperative Yes Checklist Reviewed/Evaluated Allergies Reviewed Yes Patient is Latex No Sensitive Isolation Not applicable Precautions Noted Level of WDL Consciousness (WDL = Alert, Oriented to Person, Place, and Time) Skin Assessment No Verified Present Upon IVs Arrival to OR Last Modified By: Abby Olsen RN 07/12/19 11:18:24 [facility] IntraOp Intraoperative Equipment Entry 1 Type Equipment Equipment Equipment Wendi Suction System ID Number [id number] Setting high Intraop Monitoring Electrocardiogram Three lead placement (ECG) Electrode Placement Blood Pressure Non-Invasive BP Device Source Blood Pressure Arm, right upper Location Pulse Oximeter Hand, left Probe Site Antiembolic Devices Antiembolic Devices Sequential compression device, knee high Antiembolic Device Bilateral Location Antiembolic Device [id number] ID Number Antiembolic Device 40mmhg Setting Scopes Photo/Video Documentation Last Modified By: Abby Olsen RN 07/12/19 11:19:09 [facility] IntraOp Medication Admin Entry 1 Entry 2 Medication/Irrigant NORMAL SALINE Marcaine 0.5% w/ epinephrine 1:200,000 30ml vial - [id number] Combo Med List Time Administered Route of IRRIGATION local Administration Dose Dose 15 Unit of Measure ml Volume ML ML Administered By ZONIA PENALOZA MD-SUR Procedure Irrigation Irrigant Volume In Irrigant Volume Out Last Modified By: Abby Olsen RN Hauer, Jessica, RN 07/12/19 11:19:35 07/12/19 11:19:35 [facility] IntraOp Patient Positioning Entry 1 Procedure Laparoscopy Diagnostic, Appendectomy Body Position Supine Left Arm Position Secured on padded arm board Right Arm Position Tucked and padded at side Left Leg Position Uncrossed, parallel Right Leg Position Uncrossed, parallel Feet Uncrossed Yes Pressure Points Yes Checked Positioning Devices Arm Board, Head Rest, Safety Strap, Thighs Device Position blue foam positioner and blue foam arm rolls, strap accross chest, thighs and lower legs Positioned By ZONIA PENALOZA MD-SUR, TARUN NEWTON, Abby Olsen RN, Naya Smith Crna Position Verified Positioning Yes Verified by Anesthesia Positioning Yes Verified by Surgeon Last Modified By: Abby Olsen RN 07/12/19 11:20:40 [facility] IntraOp Sign In Entry 1 Patient, Site, Yes Procedure Identified Surgical Consent Yes Confirmed Relevant Surgical Yes Documents Available Surgical Site N/A Marked by person performing procedure Anesthesia Machine Yes Check Completed Medication Checks Yes Completed Allergies Yes Airway Difficult Yes Airway/Aspiration Risk Difficult Yes Airway/Aspiration Intervention Equipment Available Blood Loss Yes Intervention Equipment Prepared and Ready Blood Identifiers Not applicable Verified Per Policy Hypothermia Risk Yes Warming Measures Yes Taken Last Modified By: Abby Olsen RN 07/12/19 11:20:47 [facility] IntraOp Sign Out Entry 1 RN Confirmation Surgical Yes Procedure(s) Identified Instrument, Sponge Yes and Sharps Counts Correct/Documented Equipment Problems Yes Documented Specimen Labeled Yes Correctly Urinary Catheter N/A Documented in IView [place] Patient Yes Recovery Concerns Reviewed with Anesthesia Provider, Surgeon and RN [place] Patient Yes Management Concerns Reviewed with Anesthesia Provider, Surgeon and RN Safety Checklist Yes Elements Complete? RN Sign Out Abby Olsen RN Signature RN Sign Out 07/12/19 11:48:00 Signature Date/Time Plan of Care Outcome - [...] related to extraneous objects Last Modified By: Abby Olsen RN 07/12/19 11:49:05 [facility] IntraOp Sign Out Audit 07/12/19 11:49:05 Home Care Specialist: [id number] Modifier: [id number] <+> 1 RN Sign Out Signature <+> 1 RN Sign Out Signature Date/Time [facility] IntraOp Skin Prep Entry 1 Procedure Laparoscopy Diagnostic, Appendectomy Prescribed N/A Pre-Surgical Prep Completed Prep Area ABDOMEN Intraop Prep Integumentary WDL Assessment WDL Prep Agents Chloraprep Prep by ZONIA PENALOZA MD-SUR Hair Removal Last Modified By: Abby Olsen RN 07/12/19 11:20:59 [facility] IntraOp Surgical Procedures Entry 1 Entry 2 Procedure Laparoscopy Diagnostic Appendectomy Modifiers Additional DIAGNOSTIC LAPAROSCOPY, Procedure APPENDECTOMY, LYSIS OF Description ADHESIONS Primary Procedure Yes No Primary Surgeon ZONIA PENALOZA MD-SUR HARRIS, JOHN M, MD-JILLIAN Start 07/12/19 11:13:00 07/12/19 11:13:00 Stop 07/12/19 11:42:00 07/12/19 11:42:00 Physician States Cecum Reached Anesthesia Type General General Specialty SN General SN General Wound Class I - Clean II - Clean-Contaminated Last Modified By: Abby Olsen, Abby Barcenas RN 07/12/19 11:48:55 07/12/19 11:48:55 [facility] IntraOp Surgical Procedures Audit 07/12/19 11:48:55 Home Care Specialist: [id number] Modifier: [id number] <+> 1 Stop <+> 2 Stop 07/12/19 11:31:20 Home Care Specialist: [id number] Modifier: [id number] 1 <*> Procedure Laparoscopy Diagnostic 07/12/19 11:21:17 Home Care Specialist: [id number] Modifier: [id number] 1 <*> Procedure Laparoscopy Diagnostic 1 <+> Start 1 <*> Additional Procedure Description (DIAGNOSTIC LAPAROSCOPY, APPENDECTOMY) <+> 2 Start [facility] IntraOp Temp Regulation Devices Entry 1 Temp Regulation Temperature Forced Air Warming Regulation Device device, Warm blankets Temperature 88666 Regulation Device Serial/Unit Number Temperature Full body Regulation Site Temperature Device 43 DEGREES CELSIUS Setting Temperature Naya Smith Crna Regulation Device Applied by Last Modified By: Abby Olsen RN 07/12/19 11:21:41 [facility] IntraOP Time Out Entry 1 Procedure to be Laparoscopy Diagnostic, Performed Appendectomy Time Out Time Out Pause Time 07/12/19 11:12:00 All activity Yes suspended (unless life threatening emergency) Team Verbally Correct patient Confirms Information identity, Consent form is present and accurate, Agreement [...] Provider None expected Nursing Assures Sterility of instruments Essential Imaging N/A Labeled and Displayed Last Modified By: Abby Olsen RN 07/12/19 11:22:18 [facility] IntraOP Time Out Audit 07/12/19 11:22:18 Home Care Specialist: [id number] Modifier: [id number] <+> 1 Beta Irvin Administered <+> 1 All activity suspended (unless life threatening emergency) <+> 1 Venous Thromboembolism Prophylaxis Required <+> 1 Antibiotic Prophylaxis Administered Or In Progress Within the Last 60 Minutes <+> 1 Surgeon <+> 1 Anesthesia Provider <+> 1 Nursing Assures <+> 1 Essential Imaging Labeled and Displayed <+> 1 Procedure to be Performed <+> 1 Team Verbally Confirms Information Case Comments <None> Finalized By: TITO MATTSON Document Signatures Signed By: Abby Olsen RN 07/12/19 11:49 Abby Olsen RN 07/12/19 11:52 TITO MATTSON 07/14/19 19:46 Unfinalized History Date/Time Username Reason for Unfinalizing Freetext Reason for Unfinalizing 07/12/19 11:51 [id number] Finish Documentation 07/14/19 19:44 JORGE Correct Billing documented in this encounter Plan of Treatment Not on file documented as of this encounter Visit Diagnoses Not on filedocumented in this encounter
--- OUTSIDE RECORDS SUMMARY | 2024-01-11 19:05 | XMS_ITS | Encounter Summary ---
Author Organization [employer] Address [address] [place] [address] Care Team Providers Care Semiconductor Manufacturing Technician Name Role Phone Unavailable Primary Care Provider Unavailabl e Encounter Details Date Type Department Care Team (Late st Contact Info) Description 07/12/2019 Transcribed Document [facility] Family Medicine [facility] [address] ProviderPreston MD [facility] [place] [id number] 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 Tobacco Use Types Packs/Day Years Used Date Smoking Tobacco: Never Assessed Comments Unknown Sex and Gender Information Value Date Recorded Sex Assigned at Not on file Legal Sex Female 6:58 PM CDT Gender Identity Not on file Sexual Orientation Not on file documented as of this encounter Miscellaneous Notes * Cerner Conversion Note - Preston ProviderMD - 07/12/2019 11:13 AM CDT [facility] Main OR PostOp Summary Primary Physician: ZONIA PENALOZA MD-SUR Finalized Date/Time: 07/12/19 16:59:46 Pt. Name: IVON MARTINEZ D.O.B./Sex: 1990 Female Med Rec #: [id number] Physician: ZONIA PENALOZA MD-SUR Financial #: [id number] Pt. Type: O Room/Bed: Admit/Disch: 07/12/19 07:37:00 - Institution: [facility] Main OR PostOp Case Times Entry 1 In PACU II 07/12/19 13:44:00 Ready for PACU II 07/12/19 14:52:00 Discharge Discharge from PACU 07/12/19 14:52:00 II Last Modified By: Nina Galindo RN 07/12/19 16:59:44 Finalized By: Nina Galindo RN Document Signatures Signed By: Nina Galindo RN 07/12/19 16:59 documented in this encounter Plan of Treatment Not on file documented as of this encounter Visit Diagnoses Not on filedocumented in this encounter
--- OUTSIDE RECORDS SUMMARY | 2024-01-11 19:05 | XMS_ITS | Encounter Summary ---
Author Organization [employer] Address [address] [place] [address] Care Team Providers Care Line Fisher Name Role Phone Unavailable Primary Care Provider Unavailabl e Encounter Details Date Type Department Care Team (Late st Contact Info) Description 07/08/2019 Transcribed Document [facility] Family Medicine [facility] [place] [address] ProviderPreston MD [facility] [place] [id number] 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 Tobacco Use Types Packs/Day Years [...] ProviderMD - 07/08/2019 1:29 PM CDT ED Triage Entered On: 07/08/2019 13:38 EDT Performed On: 07/08/2019 13:36 EDT by IVON LOGAN RN ED Triage Across the Room Chief Complaint : Right sided lower abdominal pain, nausea, diarrhea, vomiting X2 days. Appt with Dr. Carvalho on MON regarding her appendix to be removed Triage Date/Time : 07/08/2019 13:36 EDT IVON LOGAN RN - 07/08/2019 13:36 EDT DCP GENERIC CODE Tracking Acuity : 3 - Urgent Tracking Group : [facility] ED IVON LOGAN RN - 07/08/2019 13:36 EDT Mode of Arrival : Ambulatory Transported to ED by : Private vehicle To Room Via : Ambulate Accompanied By : Unaccompanied ED Vital Signs : Document Height & Weight : Document ED Allergies : Document ED Reason for Visit : Document IVON LOGAN RN - 07/08/2019 13:36 EDT Infectious Disease History Has the patient ever been tested for COVID-19? : No, Patient stated COVID19 Screening : No Experiencing Infectious Disease Symptoms : No symptoms Physical contact outside [place] in the last 30 days : No Infectious Disease Symptoms Score : 0 Infectious Disease History : Chicken pox/Shingles, Influenza Tuberculosis Symptoms : None RADHA SOLANO 07/08/2019 13:36 EDT Vital Signs ED Temperature Source : Oral Temperature Mode : Fahrenheit Temperature, Fahrenheit : 97.8 Deg F Clinical Temperature, C : 36.6 Deg C Oxygen Therapy Mode : Room air Peripheral Pulse Rate : 108 bpm (HI) Respiratory Rate : 16 Breaths/Min Systolic Blood Pressure : 156 mmHg (HI) Diastolic Blood Pressure : 116 mmHg (HI) Oxygen Saturation : 98 % IVON LOGAN RN - 07/08/2019 13:36 EDT Allergy (As Of: 07/08/2019 13:38:41 EDT) Allergies (Active) No Known Allergies Estimated Onset Date: Unspecified ; Created By: VIRGINIA GOLDSTEIN RN; Reaction Status: Active ; Category: Drug ; Substance: No Known Allergies ; Type: Allergy ; Updated By: VIRGINIA GOLDSTEIN RN; Reviewed Date: 07/08/2019 13:37 EDT Diagnosis Control ED (As Of: 07/08/2019 13:38:41 EDT) Diagnoses(Active) Abdominal pain Date: 07/08/2019 ; Diagnosis Type: Reason For Visit ; Confirmation: Complaint of ; Clinical Dx: Abdominal pain ; Classification: Medical ; Clinical Service: Emergency medicine ; Code: PNED ; Probability: 0 ; Diagnosis Code: [id number] ED Height and Weight Height Source : Stated Height Entry Format : Pine Height, Feet : 5 ft(Converted to: 152 cm, 60 Inch) Height, Inches : 5 Inch(Converted to: 0 ft 5 Inch, 12.70 cm) Clinical Height : 165.1 cm Weight Source, ED : Critical estimated dosing weight Weight Entry Format : Pine Weight, Pounds : 308 lb Clinical Dosing Weight : 140 kg Body Surface Area (BSA) : 2.38 m2 Body Mass Index : 51.4 kg/m2 (>HHI) [place] Body Weight (IBW) : 56.59 kg IVON LOGAN RN - 07/08/2019 13:36 EDT documented in this encounter Plan of Treatment Not on file documented as of this encounter Visit Diagnoses Not on filedocumented in this encounter
--- OUTSIDE RECORDS SUMMARY | 2024-01-11 19:05 | XMS_ITS | Encounter Summary ---
Author Organization [employer] Address [address] [place] [address] Care Team Providers Care Form Setter/Driver Name Role Phone Unavailable Primary Care Provider Unavailabl e Encounter Details Date Type Department Care Team (Late st Contact Info) Description 07/08/2019 Transcribed Document [facility] [place] [facility] [place] [address] Preston iHnds MD [address] [place] [address] 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 Tobacco Use Types Packs/Day Years Used Date Smoking Tobacco: Never Assessed Comments Unknown Sex and Gender Information Value Date Recorded Sex Assigned at Not on file Legal Sex Female 6:58 PM CDT Gender Identity Not on file Sexual Orientation Not on file documented as of this encounter Miscellaneous Notes * Cerner Conversion Note - Preston Hinds MD - 07/08/2019 4:41 PM CDT [place] [address] IVON MARTINEZ :1990 Visit Time:07/08/2019 Your Visit Summary Your Care Team Primary Provider: BLANCA JUAREZ MD Secondary Provider: Your Diagnosis Abdominal pain Chronic abdominal pain Nausea vomiting and diarrhea Medical Information You may obtain a copy [...] do next Follow-Up Appointments Follow Up with ZONIA PENALOZA When Within 1 to 2 days Where: [address] [facility] [address] [place] [address]- Business (1) Follow Up with ANGELLA MCDONOUGH When Within 2 to 3 days Where: [address] [address] Business (1) Allergies No Known Allergies Immunizations This Visit No Immunizations Found Medications What How Much When Instructions Next Dose ondansetron (Zofran ODT 4 mg oral tablet, disintegrating) 1 Tablet(s) Oral Two Times A Day Printed Prescription acetaminophen-hydrocodone ([place] 5 mg-325 mg oral tablet) 1 Tablet(s) Oral Every 4 Hours as needed for for pain acetaminophen-hydrocodone ([place] 7.5 mg-325 mg oral tablet) 1 Tablet(s) Oral Every 6 Hours as needed for for pain Printed Prescription The home medications listed are only as [...] This Visit (last charted value for your 07/08/2019 visit) Hematology 07/08/2019 2:16 PM WBC: 7.8 K/uL -- Normal range between ( 4.5 and 10.5 ) RBC: 4.39 Million/uL -- Normal range between ( 3.93 and 5.22 ) Hct: 37.9 % -- Normal range between ( 34.1 and 44.9 ) Hgb: 13.4 g/dL -- Normal range between ( 11.2 and 15.7 ) Platelet Count: 274 K/uL -- Normal range between ( 163 and 369 ) MCH: 30.5 pg -- Normal range between ( 25.6 and 32.2 ) MCHC: 35.4 Gram/dL -- Normal range between ( 32.2 and 36.5 ) MCV: 86.3 fL -- Normal range between ( 79.0 and 94.8 ) Slide Review: No Eos %: 4.6 % -- Normal range between ( 0.0 and 7.0 ) [place] #: 0.61 K/uL -- Normal range between ( 0.16 and 1.00 ) Eos #: 0.36 x10(3)/uL -- Normal range between ( 0.00 and 0.80 ) [place] %: 7.8 % -- Normal range between ( 3.0 and 9.0 ) Baso %: 0.9 % -- Normal range between ( 0.0 and 1.5 ) Baso #: 0.07 x10(3)/uL -- Normal range between ( 0.00 and 0.20 ) RDW: 11.9 % -- Normal range between ( 11.7 and 14.9 ) Neut %: 56.0 % -- Normal range between ( 34.0 and 71.0 ) Neut #: 4.37 K/uL -- Normal range between ( 1.56 and 6.13 ) Lymph %: 30.3 % -- Normal range between ( 19.3 and 53.1 ) Lymph #: 2.37 x10(3)/uL -- Normal range between ( 1.00 and 3.90 ) MPV: 10.5 fL -- Normal range between ( 9.4 and 12.4 ) IG#: 0.03 x10(3)/uL -- Normal range between ( 0.00 and 0.05 ) IG%: 0.40 % -- Normal range between ( 0.00 and 0.60 ) Urinalysis 07/08/2019 2:10 PM Urine Nitrite: Negative Urine Leukocyte Esterase: Negative Urine Appearance: Slightly Cloudy Urine Glucose Dipstick: Negative Urine Blood Dipstick: Negative Urine Type: U CleanCatch Urine Urobilinogen Dipstick: 0.2 EU/dL Urine Protein Dipstick: Negative Urine Color: Yellow Urine Ketones Dipstick: Negative Urine pH Dipstick: 7.0 -- Normal range between ( 6.0 and 8.0 ) Urine Bilirubin Dipstick: Negative Urine Specific [place]: 1.015 -- Normal range between ( 1.005 and 1.030 ) General Chemistry 07/08/2019 2:16 PM Creatinine Level: 0.60 mg/dL -- Normal range between ( 0.55 and 1.02 ) Sodium Level: 139 mmol/L -- Normal range between ( 136 and 146 ) Potassium Level: 3.8 mmol/L -- Normal range between ( 3.5 and 5.1 ) Chloride Level: 104 mmol/L -- Normal range between ( 102 and 112 ) Carbon Dioxide Level: 27 mmol/L -- Normal range between ( 21 and 32 ) Anion Gap: 12 -- Normal range between ( 9 and 20 ) Bilirubin Total: 0.4 mg/dL -- Normal range between ( 0.2 and 1.2 ) A/G Ratio: 1.0 -- Normal range between ( 1.1 and 2.5 ) ALT: 40 Units/Liter -- Normal range between ( 13 and 56 ) AST: 22 Units/Liter -- Normal range between ( 5 and 37 ) Globulin: 3.9 Gram/dL -- Normal range between ( 1.5 and 4.5 ) Alk Phos: 77 Units/Liter -- Normal range between ( 27 and 136 ) Bun/Creatinine: 11.7 -- Normal range between ( 8.0 and 20.0 ) Calcium Level: 8.6 mg/dL -- Normal range between ( 8.4 and 10.1 ) eGFR : >60 mL/min/1.73m2 eGFR NonAfrican: >60 mL/min/1.73m2 Glucose Level: 89 mg/dL -- Normal range between ( 74 and 106 ) Blood Urea Nitrogen: 7 mg/dL -- Normal range between ( 7 and 22 ) Protein Total: 7.7 Gram/dL -- Normal range between ( 6.4 and 8.2 ) Albumin Level: 3.8 Gram/dL -- Normal range between ( 3.4 and 5.0 ) Lipase Level: 132 Units/Liter -- Normal range between ( 73 and 393 ) Endocrinology 07/08/2019 2:16 PM HCG Serum Quant: <1.0 mIU/mL Education Materials Abdominal Pain, Adult Abdominal pain [...] Follow these instructions at home: ??? Take zvvj-emq-qgadyme and prescription medicines only as told by [...] 11/16/2005 Document Revised: 08/26/2016 Document Reviewed: 07/20/2016 [employer] Interactive Patient Education ?? [address] Emergency Awareness and Preventative Care STROKE is [...] Assistance with quitting is available by contacting 6-530-RCDX-NOW. This is a free resource providing counseling, [...] including: emergency, radiology, or pathology physicians. Patient Name:IVON MARTINEZ Farhad I have received this information and was given the opportunity to ask questions. Patient/Program Development Specialist Name: Patient/Program Development Specialist Signature: Relationship to Patient: Clinician/Hospital Program Development Specialist Signature: Please Provide a Telephone Number Where You Can Be Reached: Is it Permissible To Leave a Message? Date: Electronically signed by [place], [facility] Conversion Chemistry Physics Teacher Merrill at 06/05/2022 6:47 PM CDT documented in this encounter Plan of Treatment Not on file documented as of this encounter Visit Diagnoses Not on filedocumented in this encounter
--- OUTSIDE RECORDS SUMMARY | 2024-01-11 19:05 | XMS_ITS | Encounter Summary ---
Author Organization [employer] Address [address] [place] [address] Care Team Providers Care Ticket Sorter Name Role Phone Unavailable Primary Care Provider Unavailabl e Encounter Details Date Type Department Care Team (Late st Contact Info) Description 07/12/2019 Transcribed Document [facility] [place] [facility] [place] [address] ProviderPreston MD [address] [place] [place], [place] [id number] 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 Tobacco Use Types Packs/Day Years Used Date Smoking Tobacco: Never Assessed Comments Unknown Sex and Gender Information Value Date Recorded Sex Assigned at Not on file Legal Sex Female 6:58 PM CDT Gender Identity Not on file Sexual Orientation Not on file documented as of this encounter Miscellaneous Notes * Cerner Conversion Note - Preston ProviderMD - 07/12/2019 11:13 AM CDT [facility] Main OR PACU Summary Primary Physician: ZONIA PENALOZA MD-SUR Finalized Date/Time: 07/12/19 17:19:58 Pt. Name: IVON MARTINEZ D.O.B./Sex: 1990 Female Med Rec #: [id number] Physician: ZONIA PENALOZA MD-SUR Financial #: [id number] Pt. Type: O Room/Bed: Admit/Disch: 07/12/19 07:37:00 - Institution: [facility] Main OR PACU I Case Times Entry 1 In PACU I 07/12/19 11:52:00 Ready for PACU 07/12/19 13:40:00 Discharge Discharge from PACU 07/12/19 13:40:00 I Last Modified By: Huyen Hines Rn 07/12/19 17:19:40 Finalized By: Huyen Hines, Rn Document Signatures Signed By: Huyen Hines Rn 07/12/19 17:19 Electronically signed by [facility] Conversion Apparel Fashion Designer Cerner at 06/05/2022 6:51 PM CDT documented in this encounter Plan of Treatment Not on file documented as of this encounter Visit Diagnoses Not on filedocumented in this encounter
--- OUTSIDE RECORDS SUMMARY | 2024-01-11 19:05 | XMS_ITS | Encounter Summary ---
Author Organization [employer] Address [address] [place] [address] Care Team Providers Care Toilet And Laundry Soap Supervisor Name Role Phone Unavailable Primary Care Provider Unavailabl e Encounter Details Date Type Department Care Team (Late st Contact Info) Description 07/09/2019 Transcribed Document [facility] [place] [facility]ly [facility] [place] [address] ProviderPreston MD Formerly [facility] [place], [place] [address] 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 Tobacco Use Types Packs/Day Years Used Date Smoking Tobacco: Never Assessed Comments Unknown Sex and Gender Information Value Date Recorded Sex Assigned at Not on file Legal Sex Female 6:58 PM CDT Gender Identity Not on file Sexual Orientation Not on file documented as of this encounter Miscellaneous Notes * Cerner Conversion Note - Historical ProviderMD - 07/09/2019 9:27 PM CDT Electronically signed by [facility], [facility] Conversion Visitor Services Associate Cerner at 06/05/2022 6:39 PM CDT documented in this encounter Plan of Treatment Not on file documented as of this encounter Visit Diagnoses Not on filedocumented in this encounter
--- OUTSIDE RECORDS SUMMARY | 2024-01-11 19:05 | XMS_ITS | Encounter Summary ---
Author Organization [employer] Address [address] [place] [address] Care Team Providers Care Finger Buff Sewer Name Role Phone Unavailable Primary Care Provider Unavailabl e Encounter Details Date Type Department Care Team (Late st Contact Info) Description 07/10/2019 Historic Encounter [facility] [address] [place] [address] Provider, [facility] Historical 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 Tobacco Use Types Packs/Day [...] Date/Time Associated Diagnosis Comments CORONAVIRUS 2018 NOVEL ([facility] DATA CONV) Routine 07/10/2019 2:32 PM EDT documented in this encounter Results * CORONAVIRUS 2019 NOVEL ([facility] BK DATA CONV) (07/10/2019 2:32 PM EDT) SARS-CoV-2 ([id number]) Negative Negative 07/11/2019 11:[address] [facility] Comment:Missing Attachment R eference Lab Report Can be viewed in source system 07/10/2019 2:32 PM EDT 07/10/2019 8:56 PM EDT [facility] Historical Provider BODY FLUIDS AND STOOLS ORDERABLES Final Result [facility] [address] [place], [place] [address] [phone] documented in this encounter Visit Diagnoses Not on filedocumented in this encounter
--- OUTSIDE RECORDS SUMMARY | 2024-01-11 19:05 | XMS_ITS | Encounter Summary ---
Author Organization [employer] Address [address] [place] [address] Care Team Providers Care Sox Analyst Name Role Phone Unavailable Primary Care Provider Unavailabl e Encounter Details Date Type Department Care Team (Late st Contact Info) Description 07/08/2019 Transcribed Document [facility] [place] Medicine [address] [place] [address] ProviderPreston MD [address] [place] [address] 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 Tobacco Use Types Packs/Day Years Used Date Smoking Tobacco: Never Assessed Comments Unknown Sex and Gender Information Value Date Recorded Sex Assigned at Not on file Legal Sex Female 6:58 PM CDT Gender Identity Not on file Sexual Orientation Not on file documented as of this encounter Miscellaneous Notes * Cerner Conversion Note - Historical ProviderMD - 07/08/2019 1:29 PM CDT [place] Suicide Severity Rating Scale (C-SSRS) Entered On: 07/08/2019 13:49 EDT Performed On: 07/08/2019 13:47 EDT by IVON LOGAN RN [place] Suicide Severity Rating Scale (C-SSRS) CSSRS Past Month Wish to be : No CSSRS Past Month Suicidal Thoughts : No CSSRS Lifetime Suicide Behavior : No Suicide Severity Rating Score : 0 Suicide Severity Rating : No Additional Care Required at this time IVON LOGAN RN - 07/08/2019 13:47 EDT documented in this encounter Plan of Treatment Not on file documented as of this encounter Visit Diagnoses Not on filedocumented in this encounter
--- OUTSIDE RECORDS SUMMARY | 2024-01-11 19:05 | XMS_ITS | Encounter Summary ---
Author Organization [employer] Address [address] [place] [address] Care Team Providers Care Parachute Rigger Name Role Phone Unavailable Primary Care Provider Unavailabl e Encounter Details Date Type Department Care Team (Late st Contact Info) Description 07/12/2019 Transcribed Document [facility] [place] [facility] [place] [address] Preston Hinds MD [address] [place] [phone] 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 Tobacco Use Types Packs/Day Years Used Date Smoking Tobacco: Never Assessed Comments Unknown Sex and Gender Information Value Date Recorded Sex Assigned at Not on file Legal Sex Female 6:58 PM CDT Gender Identity Not on file Sexual Orientation Not on file documented as of this encounter Miscellaneous Notes * Cerner Conversion Note - Preston Hinds MD - 07/12/2019 1:38 PM CDT Patient Education Materials Follows: Laparoscopic Appendectomy, Adult A laparoscopic appendectomy is [...] including vitamins, herbs, eye drops, creams, and vstx-pog-vhfcrsz medicines. ??? Use of steroids (by mouth [...] tells you to take them. ??? Taking pshj-dgd-hghmicu medicines, vitamins, herbs, and supplements. General instructions [...] 09/20/2004 Document Revised: 08/09/2018 Document Reviewed: 08/09/2018 [employer] Interactive Patient Education ? 2019 [employer] General Anesthesia, Adult, Care After This [...] activities are safe for you. ??? Take ozjo-kws-dbnhbey and prescription medicines only as told by [...] 05/15/2001 Document Revised: 09/22/2017 Document Reviewed: 09/22/2017 [employer] Interactive Patient Education ? 2019 [employer] documented in this encounter Plan of Treatment Not on file documented as of this encounter Visit Diagnoses Not on filedocumented in this encounter
--- OUTSIDE RECORDS SUMMARY | 2024-01-11 19:05 | XMS_ITS | Encounter Summary ---
Author Organization [employer] Address [address] [place] [address] Care Team Providers Care Lab Assistant Name Role Phone Unavailable Primary Care Provider Unavailabl e Encounter Details Date Type Department Care Team (Late st Contact Info) Description 07/12/2019 Transcribed Document [facility] [place] [facility] [place] [address] ProviderPreston MD [address] [place] [id number] 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 Tobacco Use Types Packs/Day Years Used Date Smoking Tobacco: Never Assessed Comments Unknown Sex and Gender Information Value Date Recorded Sex Assigned at Not on file Legal Sex Female 6:58 PM CDT Gender Identity Not on file Sexual Orientation Not on file documented as of this encounter Miscellaneous Notes * Cerner Conversion Note - Preston ProviderMD - 07/12/2019 11:13 AM CDT [facility] Main OR Preop Summary Primary Physician: ZONIA PENALOZA MD-SUR Finalized Date/Time: 07/12/19 13:30:13 Pt. Name: IVON MARTINEZ D.O.B./Sex: 1990 Female Med Rec #: [id number] Physician: ZONIA PENALOZA MD-SUR Financial #: [id number] Pt. Type: O Room/Bed: Admit/Disch: 07/12/19 07:37:00 - Institution: [facility] PreOp Case Times Entry 1 In Preop 07/12/19 07:52:00 Ready for Holding n/a Room Patient Ready for 07/12/19 08:47:00 Surgery Patient Out of Preop 07/12/19 10:51:00 Patient Out of n/a Holding Room Last Modified By: VALERY Wynn RN 07/12/19 13:30:11 [facility] PreOp Case Times Audit 07/12/19 13:30:11 Plumbing Assembler Installer: MARIA Modifier: [email or web address] <+> 1 Patient Out of Preop 07/12/19 08:48:17 Plumbing Assembler Installer: MARIA Modifier: [email or web address] <+> 1 Patient Ready for Surgery Finalized By: VALERY Wynn, RN Document Signatures Signed By: VALERY Wynn RN 07/12/19 13:30 Electronically signed by [place] [facility] Conversion Planer Hand Cerner at 06/05/2022 6:38 PM CDT documented in this encounter Plan of Treatment Not on file documented as of this encounter Visit Diagnoses Not on filedocumented in this encounter
--- OUTSIDE RECORDS SUMMARY | 2024-01-11 19:06 | XMS_ITS | Encounter Summary ---
Author Organization [facility] Address [address] [place] [address] Care Team Providers Care Chain Maker Name Role Phone Joyce Shaw TERESA Primary Care Provider + [phone] Encounter Details Date Type Department Care Team (Latest Contact Info) Description 11/06/2023 Travel 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 Tobacco Use Types Packs/Day Years Used Date Smoking Tobacco: Former Cigarettes 2 0.2 S tarted: 05/2023 Smokeless Tobacco: Never Alcohol Use Standard Drinks/Week Comments Not Currently [...] Date Recorded Patient Health Questionnaire-2 Score 4 10/10/2023 Hunger Vital Sign Answer Date Recorded Within [...] place to sleep or slept in a fci (including now)? No 09/18/2023 PHQ-9 Answer Date Recorded Patient Health Questionnaire-9 Score 13 09/22/2023 CAGE ASSESSMENT Answer Date Recorded Cage unable [...] drink first t maurilio in the morning (EYE-PAGE MAKEUP SYSTEM OPERATOR) to steady your nerves or to get [...] as of this encounter Plan of Treatment Upcoming Encounters Date Type Department Care Team (Late st Contact Info) Description 01/12/2024 9:30 AM EST Office Visit [facility] [address] [place] [address] Sean Rod MD [address] [place] [address] 01/16/2024 9:30 AM EST Office Visit [facility] Breast [facility] [address] [facility]nd [place] [phone] Giana Mays MD [address] [facility] [address] [address] 03/05/2024 8:00 AM EST Appointment [facility] [address] [address] 03/05/2024 9:00 AM EST Appointment [facility] [address] [facility] [address] [place] [address] 03/05/2024 10:00 AM EST Office Visit [facility] [address] [facility] [place] [address] Giana Mays MD [address] [facility] [address] [address] documented as of this encounter Visit Diagnoses Not on filedocumented in this encounter Additional Health Concerns Assessment Noted Time PHQ-9 Depression Total Score: 13 024 8:31 AM EDT A fall risk assessment has been complete d for the patient 10/06/2023 10:13 AM EDT A Body Mass Index follow-up plan has been documented for the patient 10/06/2023 11:30 AM EDT documented as of this encounter Care Teams Chain Maker Relationship Specialty Start Date End Date Joyce Shaw APRN [address] [place] [address] PCP - General 09/11/23 documented as of this encounter
--- OUTSIDE RECORDS SUMMARY | 2024-01-11 19:06 | XMS_ITS | Encounter Summary ---
Author Organization [facility] Address [address] [place] [address] Care Team Providers Care Bark Peeler Name Role Phone Joyce Shaw TERESA Primary Care Provider + [phone] Encounter Details Date Type Department Care Team (Latest Contact Info) Description 11/30/2023 Travel 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 Tobacco Use Types Packs/Day [...] place to sleep or slept in a skilled nursing (including now)? No 09/18/2023 PHQ-9 Answer Date [...] drink first t maurilio in the morning (EYE-TITLE INSURANCE EXAMINER) to steady your nerves or to get [...] Description 01/12/2024 9:30 AM EST Office Visit [facility] [address] [place] [address] Sean Rod MD [address] [place] [address] 01/16/2024 9:30 AM EST Office Visit [facility] Breast [facility] [address] [facility]nd [place] [phone] Giana Mays MD [address] [facility] [address] [address] 03/05/2024 8:00 AM EST Appointment [facility] [address] [phone] 03/05/2024 9:00 AM EST Appointment [facility] [address] [facility] [address] [place] [address] 03/05/2024 10:00 AM EST Office Visit [facility] [address] [facility] [place] [address] Giana Mays MD [address] [facility] [address] [phone] documented as of this encounter Visit Diagnoses [...] documented as of this encounter Care Teams Bark Peeler Relationship Specialty Start Date End Date Joyce Shaw APRN [address] [place] [address] PCP - General 09/11/23 documented as of this encounter
--- OUTSIDE RECORDS SUMMARY | 2024-01-11 19:06 | XMS_ITS | Encounter Summary ---
Author Organization [facility] Address [address] [place] [address] Care Team Providers Care Green Jobs Trainer Name Role Phone Joyce Shaw TERESA Primary Care Provider + [phone] Reason for Visit * Reason Comments Follow-up Encounter Details Date Type Department Care Team ([facility] st Contact Info) Description 12/05/2023 9:00 AM EDT Office Visit [facility] [address] [place] [address] Giana Mays MD [address] [facility] [address] [place] [address] Nipple discharge (Primary Dx) 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 Tobacco Use Types [...] place to sleep or slept in a snf (including now)? No 09/18/2023 PHQ-9 Answer Date [...] drink first t maurilio in the morning (EYE-MVA STILL OPERATOR) to steady your nerves or to [...] Sign Reading Time Taken Comments Blood Pressure 135/84 12/05/2023 9:16 AM EDT Pulse 98 12/05/2023 9:16 AM EDT Temperature 36.6 ??C (97.9 ??F) 12/05/2023 9:16 AM ED T Respiratory Rate - - Oxygen Saturation 96% 12/05/2023 9:16 AM EDT Inhaled Oxygen Concentration - - Weight 132 kg (289 lb 14.5 oz) 12/05/2023 9:16 A M EDT Height 165.1 cm (5' 5 ) 12/05/2023 9:16 AM EDT Body Mass Index 48.24 12/05/2023 9:16 AM EDT documented in this encounter Miscellaneous Notes * H&P - Ramírez Krishnan MD - 12/05/2023 9:00 [...] right breast likely secondary to previous lumpectomies EXCEPTIONAL STUDENT EDUCATION TEACHER/Breast Hx: -Menarche: 10 -LMP: N/A -OCP hx: [...] not like to lal surgery date. We h ad a long discussion that due to scheduling [...] Mays MD at 12/05/2023 11:25 AM EDT Associated attestation - Giana Mays MD - 12/05/2023 11:25 AM EDT I saw and evaluated the patient with the resident/fellow. I discussed the case with the resident/fellow and agree with the findings and plan as documented. documented in this encounter Plan of Treatment Upcoming Encounters Date Type Department Care Team (Late st Contact Info) Description 01/12/2024 9:30 AM EST Office Visit [facility] Medicine Specialties [address] [place] [address] Sean Rod MD [address] [place] [address] 01/16/2024 9:30 AM EST Office Visit [facility] [place] [address] [place] [address] Giana Mays MD [address] Joaquina Guzman [facility] [address] [place] [address] 03/05/2024 8:00 AM EST Appointment [facility] [place] [address] [address] Guzman [facility] [address] [place] [address] 03/05/2024 9:00 AM EST Appointment [facility] [address] Guzman [address] [place] [address] 03/05/2024 10:00 AM EST Office Visit [facility] [address] [place] [address] Giana Mays MD [address] [place] [address] Scheduled Orders Name Type Priority Associated Diagnoses Orde r Schedule Mammography Breast Diagnostic Tomosynthesis Bilateral Imaging Routine Nipple discharge Expected: 03/06/2024 (Approximate), Expires: 06/04/2025 US Breast Limited Left Imaging Routine Nipple discharge Expected: 03/06/2024 (Approximate), Expires: 06/04/2025 documented as of this encounter Visit Diagnoses Diagnosis Nipple discharge- Primary Other sign and symptom in breast documented in this encounter Additional Health Concerns Assessment Noted Time PHQ-9 Depression Total Score: 14 024 9:15 AM EDT A fall risk assessment has been complete d for the patient 10/06/2023 10:13 AM EDT A Body Mass Index follow-up plan has been documented for the patient 10/06/2023 11:30 AM EDT documented as of this encounter Care Teams Green Jobs Trainer Relationship Specialty Start Date End Date Joyce Shaw APRN [address] [place] [address] PCP - General 09/11/23 documented as of this encounter
--- OUTSIDE RECORDS SUMMARY | 2024-01-11 19:06 | XMS_ITS | Encounter Summary ---
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] Procedures VT MASTECTOMY, SIMPLE, COMPLETE Right total mastectomy, flat closure Giana Mays MD [address] [facility] Joaquina Guzman [address] [address] Phone: tel: fax: [facility] [address] [place] [address] Phone: tel: Referral ID Status Reason Start Date Expiration Date Visits Re quested Visits Authorized [id number] 1 1 Encounter Details Date Type Department Care Team (Late st Contact Info) Description 12/25/2023 5:32 PM EST - 12/25/2023 7:12 PM EST Surgery [facility] [address] [place] [address] Giana Mays MD [address] [facility] [address] [address] Right total mastectomy, flat closure [92475 (CPT??)] Surgery Details Date/Time Status Location OR Service Patient Class Case Class Case Type Trauma Case? 12/25/2023 5:32 PM Posted [facility] OR 05 Surgical Oncology Extended Recovery E-Electi ve Panel 1 Procedure LRB Anes Op Region Wound Class Comments Right total mastectomy, flat closure Right General Surgeon Surgeon Role Service Panel Roman Conn MD Resident - Assisting 1 Giana Mays MD Primary Surgical Oncology 1 documented in this encounter 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 Tobacco [...] place to sleep or slept in a penitentiary (including now)? 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 0 09/16/2023 CAGE Questionnaire Score 0 024 Utilities Answer Date Recorded In the past 12 months has th e Excep Apps, gas, oil, or water Pearescope threatened to shut off services in your home? No 09/18/2023 Comments No Sex and Gender Information Value Date Recorded Sex Assigned at Not on file Legal Sex Female 7:54 PM EDT Gender Identity Not on file Sexual Orientation Not on file documented as of this encounter Last Filed Vital Signs Vital Sign Reading Time Taken Comments Blood Pressure 120/73 12/25/2023 3:05 PM EST Pulse 98 12/25/2023 3:05 PM EST Temperature 36.8 ??C (98.2 ??F) 12/25/2023 3:05 PM ES T Respiratory Rate 16 12/25/2023 3:05 PM EST Oxygen Saturation 96% 12/25/2023 3:05 PM EST Inhaled Oxygen Concentration - - [...] shirts for easy dressing. If you wear focus puller shirts, wear a larger size than [...] of lotions at a drug store, a disc[employer]al do [employer] store, or a health food store. You [...] The scar will slowly soften and become merchandising professor in color over several weeks. documented in [...] of Care Goal: Plan of Care Review 12/26/20231226 by Jorge Larsen RN Outcome: Met 12/26/2023 104 by Jorge Larsen RN Outcome: Ongoing, Progressing Goal: Patient-Specific Goal (Individualized) 12/26/20231226 by Jorge Larsen RN Outcome: Met 12/26/2023 1047 by Jorge Larsen RN Outcome: Ongoing, Progressing Goal: Absence of Hospital-Acquired Illness or Injury 12/26/2023 122 by Jorge Larsen RN Outcome: Met 12/26/2023 1047 by Jorge Larsen RN Outcome: Ongoing, Progressing Goal: Optimal Comfort and Wellbeing 12/26/20231226 by Jorge Larsen RN Outcome: Met 12/26/2023 [...] MD PCP name and Address: Joyce Shaw, MANUFACTURING QUALITY MANAGER [address] [facility] / [place] [address] Referring provider name and address: No referring [...] hours if needed for nausea or vomiting. NanoLumensToGeorgina Goodman Ultra Test test strip Generic drug: glucose [...] Your Medications These medications were sent to [facility] [place], [place] - [address] [facility] A [address] [employer] [address], [facility] [address] acetaminophen 500 MG tablet cyclobenzaprine 5 MG [...] shirts for easy dressing. If you wear focus puller shirts, wear a larger size than [...] The scar will slowly soften and become merchandising professor in color over several weeks. Outpatient Follow-Up Future Appointments Date Time Provider Department Center 01/12/2024 9:30 AM Sean Rod MD [facility] 01/16/2024 9:30 AM Giana Mays MD [facility] Joaquina-Yoan 03/05/2024 8:00 AM WHT MAMMO 1 MAMMCHVERNELLDayanaraMELINA Kunz-Yoan 03/05/2024 9:00 AM WHT US 1 MAMMCHVERNELLTMELINA Kunz-Yoan 03/05/2024 10:00 AM Giana Mays MD CBCC[facility]WHLUMA Matthew Test Results Pending At Discharge Pending Labs Order Current Status Surgical Pathology Exam Collected (12/25/23 190) Pertinent Physical Exam At Time of Discharge [...] - 12/25/2023 11:09 PM EST Patient: Ivon Moncada [place] Anesthesia Type: general Vitals Value Taken Time BP 100/57 12/25/232130 Temp 37.3 ??C (99.1 ??F) 12/25/23 2100 Pulse 104 12/25/235 Resp 15 12/25/230 SpO2 93 % 12/25/232152 Vitals shown include [...] from the original note were not included. [facility] Department of Surgery Division of Surgical Oncology Post Operative Check: Subjective: Procedure: Right total mastectomy, flat closure 33139 - VT MASTECTOMY, SIMPLE, COMPLETE Ivon Dowd is a [...] 0 s/p Right total mastectomy, flat closure 97132 - VT MASTECTOMY, SIMPLE, COMPLETE is recovering appropriately in the current post op period. Will continue to monitor. Diet: Regular Pain management: Tylenol, ibuprofen, flexeril Level of care: Continue Current Level of Care I have answered and addressed all issues and concerns from the patient and nursing staff. I have notified senior resident/attending investor relations associate with any issues or concerns. * Op Note - Giana Mays MD - 12/25/2023 6:47 PM EST OPERATIVE REPORT: RIGHT MASTECTOMY Patient Name: Ivon Dowd MRM: [id number] DATE: 12/25/2023 Preoperative Diagnosis: Atypical hyperplasia of [...] brought to operating room 5 in the [facility]. She was placed supine on the table. [...] right breast likely secondary to previous lumpectomies FREELANCE DISPLAYER/Breast Hx: -Menarche: 10 -LMP: N/A -OCP hx: [...] card, photo ID, along with power of ip technology transactions attorney, guardianship or advanced directives if applicable [...] Description 01/12/2024 9:30 AM EST Office Visit [facility] Medicine Specialties [address] [place] [address] Sean Rod MD [address] [place] [address] 01/16/2024 9:30 AM EST Office Visit [facility] Breast [facility] [address]nd [place] [address] Giana Mays MD [address] [facility] Joaquina Guzman [facility] [address] [place] [address] 03/05/2024 8:00 AM EST Appointment [facility] [address] [facility] [address] [place] [address] 03/05/2024 9:00 AM EST Appointment [facility] [address] [facility] [address] [place] [address] 03/05/2024 10:00 AM EST Office Visit [facility] [address] [place] [address] Giana Mays MD [address] [facility] Joaquina Guzman [address] [address] documented as of this encounter Procedures Procedure [...] 7:06 PM EST Atypical hyperplasia of breast VT MASTECTOMY, SIMPLE, COMPLETE 12/25/2023 6:14 PM EST Atypical hyperplasia of breast POCT GLUCOSE METER UNSOLICITED RESULTS Routine 12/25/2023 2:57 PM EST ECG ADULT Routine 12/25/2023 1:19 PM EST POCT GLUCOSE METER UNSOLICITED RESULTS Routine 12/25/2023 12:57 PM EST documented in this encounter Results * (ABNORMAL) POCT glucose meter (12/26/2023 11:32 AM EST) POCT Glucose 195(H) 74 - 99 mg/dL 12/26/2023 11:34 AM EST [facility] Comment:Accuracy of a glucos e result [...] for testing. Comment 12/26/2023 11:34 AM EST [facility] Muffle Operator ID Joyce Wynn 12/26/2023 11:34 AM EST [facility] Device ID [id number] 12/26/2023 11:34 AM EST [facility] Specimen Type POC Capillary 12/26/2023 11:34 AM EST [facility] Blood Capillary blood specimen / Unknown 12/26/2023 11:32 AM EST 12/26/2023 11:34 AM EST us Giana Mays MD LAB POINT OF CARE TE ST DOCKED DEVICE UNSOLICITED RESULTS Final Result [facility] [address] [place] [address] * (ABNORMAL) POCT glucose meter (12/26/2023 8:11 AM EST) POCT Glucose 214(H) 74 - 99 mg/dL 12/26/2023 8:14 AM EST [facility] Comment:Accuracy of a glucos e result [...] for testing. Comment 12/26/2023 8:14 AM EST [facility] Muffle Operator ID Shekhar Moon 12/26/2023 8:14 AM EST [facility] Device ID [id number] 12/26/2023 8:14 AM EST [facility] Specimen Type POC Capillary 12/26/2023 8:14 AM EST [facility] Blood Capillary blood specimen / Unknown 12/26/2023 8:11 AM EST 12/26/2023 8:14 AM EST Giana Mays MD LAB POINT OF CARE TE ST DOCKED DEVICE UNSOLICITED RESULTS Final Result Performing Organization Address City/State/[facility] de Phone Number [facility] [address] [place] [address] * (ABNORMAL) POCT glucose meter (12/26/2023 1:10 AM EST) POCT Glucose 259(H) 74 - 99 mg/dL 12/26/2023 1:11 AM EST [facility] Comment:Accuracy of a glucos e result [...] Comment 12/26/2023 1:11 AM EST [facility] Muffle Operator ID Radha Marcelo 12/26/2023 1:11 AM EST [facility] Device ID [id number] 12/26/2023 1:11 AM EST [facility] Specimen Type POC Capillary 12/26/2023 1:11 AM EST [facility] Blood Capillary blood specimen / Unknown 12/26/2023 1:10 AM EST 12/26/2023 1:11 AM EST Giana Mays MD LAB POINT OF CARE TE ST DOCKED DEVICE UNSOLICITED RESULTS Final Result Performing Organization Address [facility] de Phone Number [facility] [address] [place] [address] * (ABNORMAL) POCT glucose meter (12/25/2023 8:06 [...] for testing. Comment 12/25/2023 8:07 PM EST [facility] Muffle Operator ID KuBelen harris 12/25/2023 8:07 PM EST [facility] Device ID [id number] 12/25/2023 8:07 PM EST [facility] Specimen Type POC Capillary 12/25/2023 8:07 PM EST [facility] Blood Capillary blood specimen / Unknown 12/25/2023 8:06 PM EST 12/25/2023 8:07 PM EST Giana Mays MD LAB POINT OF CARE TE ST DOCKED DEVICE UNSOLICITED RESULTS Final Result Performing Organization Address [facility] de Phone Number [facility] [address] [place] [address] * Surgical Pathology Exam (12/25/2023 7:06 PM EST) Case Report Surgical Pathology ?Case: [id number] ? Authorizing Provider: ??Giana Mays MD ?Collected: ? 12/25/2023 1906 ? Ordering Location: ? [facility] ? Received: ?12/26/2023 0744 ? Pathologist: ? Calixto Bedoya DO ? Specimen: ?Breast, Right, Right Breast - short stitch superior long stitch lateral ? 12/27/2023 2:50 PM EST [facility] Final Diagnosis A. 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 RIGHT BREAST [...] adipose tissue, and 10% amaya-white fibromembranous tissue. Vaccine Manager sections are submitted as follows: A1: Nearest posterior margin A2: Nearest anterior margin A3: Necrotic area to nipple A4-A6: Vaccine Manager area of necrosis, submitted medial to lateral A7-A8: Upper inner quadrant A9-A10: Upper outer quadrant A11-A12: Lower inner quadrant A13-A14: Lower outer quadrant Cold Time: 2h 10m Mar Rosenthal 12/27/2023 2:50 PM EST [facility] Note: A resident was involved in the service. I attest I examined the relevant preparations for the specimens and confirmed the diagnosis or interpretation. 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] Giana Mays MD LAB PATHOLOGY ORDERABLES Fin al Result [facility] [address] [place] [address] * (ABNORMAL) POCT glucose meter (12/25/2023 2:57 PM EST) POCT Glucose 116(H) 74 - 99 mg/dL 12/25/2023 3:01 PM EST [facility] Comment:Accuracy of a glucos e result [...] Comment 12/25/2023 3:01 PM EST [facility] Muffle Operator ID Bernabe Scales 3:01 PM EST [facility] Device ID [id number] 12/25/2023 3:01 PM EST [facility] Specimen Type POC Capillary 12/25/2023 3:01 PM EST [facility] Blood Capillary blood specimen / Unknown 12/25/2023 2:57 PM EST 12/25/2023 3:01 PM EST us Giana Mays MD LAB POINT OF CARE TE ST DOCKED DEVICE UNSOLICITED RESULTS Final Result Performing Organization Address City/[facility] Co de Phone Number [facility] [address] [place] [address] * ECG Adult (12/25/2023 1:19 PM EST) EKG DIAGNOSIS CLASS Abnormal MUSE ECG Ventricular Rate 86 BPM MUSE ECG Atrial Rate 86 BPM MUSE ECG VT Interval 146 ms MUSE ECG QRSD Interval 86 ms MUSE ECG QT Interval 378 ms MUSE ECG QTC Interval 452 ms MUSE ECG P Hiddenite 29 degrees MUSE ECG R Hiddenite 23 degrees MUSE ECG T Wave Hiddenite 2 degrees MUSE ECG Diagnosis Normal sinus rhythm MUSE ECG Diagnosis Possible Left atrial enlargement MUSE ECG Diagnosis Inferior infarct , age undetermined MUSE ECG Diagnosis Abnormal ECG MUSE ECG Diagnosis MUSE ECG Diagnosis Confirmed by Ismael Salas ([id number]) on 12/25/2023 4:18:05 PM MUSE ECG 12/25/2023 1:19 PM EST 12/25/2023 4:18 PM EST us Chelsi Murrell MD ECG ORDERABLES Final Result Performing Organization Address City/[facility] Co de Phone Number MUSE ECG * (ABNORMAL) POCT glucose meter (12/25/2023 12:57 PM EST) POCT Glucose 135(H) 74 - 99 mg/dL 12/25/2023 12:59 PM EST [facility] Comment:Accuracy of [...] for testing. 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] Radha Marcelo RN)1141 (Given - Provider: Jorge Larsen RN) docusate sodium (Colace) capsule 100 mg 100 mg, Oral, 2 times daily, First dose on Mon12/25/23 at 2100, Until Discontinued, Routine, Recovery(Phase II-Outpatient)/On Unit(Inpatient) 2014 (Not Given - Provider: Jannie Mclaughlin - Reason: Patient/family refused) 0826 (Not Given - Provider: Jorge Larsen RN - Reason: Patient/family refused) ibuprofen tablet 800 mg 800 mg, Oral, Every 8 hours scheduled, First dose on Mon12/25/23 at 2200, Until Discontinued, Routine, Recovery(Phase II-Outpatient)/On Unit(Inpatient) 223 (Given - Provider: Radha Marcelo RN) 0510 (Given - Provider: Radha Marcelo RN)1400 (Canceled Entry - Provider: Automatic Discharge Provider - Comment: Automatically canceled at discontinue of medication order) insulin lispro (Admelog) 100 units/mL injection - Correction - Resistant Dose 0-10 Units, Subcutaneous, 3 times daily with meals, First dose on Mon12/26/23 at 0830, Until Discontinued, Routine, Recovery(Phase II-Outpatient)/On Unit(Inpatient) 0826 (Given - Provid er: Jorge Larsen RN)1136 (Not Given - Provider: Jorge Larsen RN - Reason: Order changed - Comment: Pt is being discharged) insulin lispro (Admelog) injection - Correction - Nighttime Dose 0-3 Units, Subcutaneous, 2 times nightly (2100 & 0300), First dose on Mon12/26/23 at 2100, Until Discontinued, Routine, Recovery(Phase II-Outpatient)/On Unit(Inpatient) lactated Ringer's infusion (COMPLETED) 20 mL/hr, Intravenous, Once, 1 dose, On Mon12/25/23 at 2045, Routine 2004 (Continued from OR - Provider: Jannie Mclaughlin)2100 (Canceled Entry - Provider: Jannie Mclaughlin) Povidone-Iodine 5 % swab solution 1 Application (COMPLETED) Nasal, Once, 1 dose, On Mon12/25/23 at 1345, Routine 1305 (Given - Provider: Dora Heath RN) sodium chloride 0.9 % flush 10 mL(Linked Group 1) 10 mL, Intravenous, Every 12 hours, First dose on Mon12/25/23 at 2045, Until Discontinued, Routine, Recovery(Phase II-Outpatient)/On Unit(Inpatient) 2013 (Given - Provider: Jannie Mclaughlin) 826 (Given - Provider: Jorge Larsen, RADHA) venlafaxine XR (Effexor-XR) 24 hr capsule 75 mg 75 mg, Oral, Every 24 hours, First dose on Mon12/26/23 at 0800, Until Discontinued, Routine 08 (Given - Provid er: Jorge Larsen RN) PRN Medication Order 12/24/2023 12/25/2023 12/26/2023 bupivacaine PF (Marcaine) 0.25 % injection (CANCELED) As needed, Starting on Mon12/25/23 at 1933, Until Mon12/25/23 at 2000, Routine, Intraprocedure 193 (Given - Provider: Giana Mays MD) cyclobenzaprine [...] on Mon12/25/23 at 1956, Until Mon12/25/23 at 220, Routine, Recovery (Phase I only), pain score [...] PRN, 2 doses, Starting on Mon12/25/23 at 195, Until Mon12/25/23 at 2029, Routine, Recovery (Phase I only), pain score of 9-10 out of 10 2020 (Given - Provider: Jannie Mclaughlin)2029 (Given - Provider: Jannie Mclaughlin) lidocaine-EPINEPHrine (Xylocaine W/EPI) 1 %-1:540854 injection (CANCELED) As needed, Starting on Mon12/25/23 at 1933, Until Mon12/25/23 at 1999, Routine, Intraprocedure 1932 (Given - Provider: Giana [...] 1451, Routine, Recovery(Phase II-Outpatient)/On Unit(Inpatient), severe pain 0830 (Given - Provid er: Jorge Larsen, RADHA)1236 (Given - Provider: Jorge Larsen RN) sodium chloride 0.9 % flush 10 mL(Linked Group 1) 10 mL, Intravenous, As needed, Starting on Mon12/25/23 at 1953, Until Mon12/26/23 at 1451, Routine, Recovery(Phase II-Outpatient)/On Unit(Inpatient), line care Linked Groups Order Group 1: Insert peripheral IV (CANCELED) Once, On Mon12/25/23 at 195, For 1 occurrence, Recovery(Phase II-Outpatient)/On Unit(Inpatient) And Saline lock IV (CANCELED) Once, On Mon12/25/23 at 1954, For 1 occurrence, Recovery(Phase II-Outpatient)/On Unit(Inpatient) And sodium chloride 0.9 % flush 10 mLJump to med 10 mL, Intravenous, Every 12 hours, First dose on Mon12/25/23 at 2045, Until Discontinued, Routine, Recovery(Phase II-Outpatient)/On Unit(Inpatient) And [...] Mon12/26/23 at 0703, Until Mon12/26/23 at 145, Routine, Recovery(Phase II-Outpatient)/On Unit(Inpatient), low blood sugar, [...] documented as of this encounter Care Teams Ballpoint Pen Cartridge Tester Relationship Specialty Start Date End Date Joyce Shaw APRN [address] [place] [address] PCP - General 09/11/23 documented as of this encounter
--- OUTSIDE RECORDS SUMMARY | 2024-01-11 19:06 | XMS_ITS | Encounter Summary ---
Author Organization Healthcare Address [address] [id number] Care Team Providers Care Locomotive Mechanic Name Role Phone Shaw, Joyce C TERESA Primary Care Provider + [phone] Encounter Details Date Type Department Care Team (Latest Contact Info) Description 11/30/2023 8:30 AM EDT - 11/30/2023 11:59 PM EDT Hospital Encounter [facility] [address] [address] Bloody discharge from left nipple Discharge Disposition: Home or Self Care Social [...] place to sleep or slept in a half-way (including now)? No 09/18/2023 PHQ-9 Answer Date [...] drink first t maurilio in the morning (EYE-MANAGER MARKETING COMMUNICATIONS) to steady your nerves or to get [...] this encounter Medications at Time of Discharge hydroCHLOROthiazide (HYDRODiuril) 12.5 MG tablet Take 1 tablet (12.5 mg) by mouth 1 (one) time each day. lisinopril 20 MG tablet Take 1 tablet (20 mg) by mouth 1 (one) time each day. metFORMIN (Glucophage) 1000 MG tablet Take 1 tablet (1,000 mg) by mouth 2 (two) times a day. [employer] Ultra Test test strip 4 Ozempic, 0.25 or 0.5 MG/DOSE, 2 MG/3ML solution pen-injector INJECT 0.5 MG WEEKLY SUBCUTANEOUSLY FOR DIABETES 4 propranolol (Inderal) 20 MG tablet Take 1 tablet (20 mg) by mouth 2 (two) times a day. venlafaxine XR (Effexor XR) 75 MG 24 hr capsule 1 (one) time each day at the same time. 4 cariprazine (Vraylar) 3 MG capsule Take 1 capsule (3 mg) by mouth every night. 12/26/19 24 diclofenac (Voltaren) 50 MG EC tablet Take by mouth 3 (three) times a day. 4 12/26/19 24 lamoTRIgine (LaMICtal) 200 MG tablet Take 1 tablet (200 mg) by mouth 1 (one) time each day. 12/26/19 24 metoclopramide (Reglan) 10 MG tablet Take 1 tablet (10 mg) by mouth 3 (three) times a day if needed (nausea). 20 tablet 4 12/26/19 24 ondansetron ODT (Zofran-ODT) 4 MG disintegrating tablet Take 1 tablet (4 mg) by mouth every 8 (eight) hours if needed for nausea or vomiting. 20 tablet 4 12/26/19 24 documented as of this encounter Plan of Treatment Upcoming Encounters Date Type Department Care Team (Late st Contact Info) Description 01/12/2024 9:30 AM EST [facility] [address], [address]nd [place] [address] Sean Rod MD [address] [place] [address] 01/16/2024 9:30 AM EST Office Visit [facility] Breast Care [place] [address] [facility], 2nd [place] [address] Giana Mays MD [address] [facility] Joaquina Guzman [address] [address] 03/05/2024 8:00 AM EST Appointment [facility] Breast formerly [facility] [address] [address] 03/05/2024 9:00 AM EST Appointment [address] [address] 03/05/2024 10:00 AM EST Office Visit [facility] Breast [address], [address] [place] [address] Giana Mays MD 800 [facility] Megan [address] [address] documented as of this encounter Procedures Procedure Name Priority Date/Time Associated Diagnosis Comments US BREAST LIMITED LEFT Routine 11/30/2023 9:11 AM EDT Bloody discharge from left nipple documented in this encounter Results * US Breast Limited Left (11/30/2023 9:11 [...] SMOLD(squamous metaplasia of lactiferous ducts). TECHNIQUE: Multiplanar, rollins [...] Alma Merchant MD on 11/30/2023 10:22 AM us Giana Mays MD IMG BI PROCEDURES Final Resu lt documented in this encounter Visit Diagnoses Diagnosis Bloody discharge from left nipple documented in this encounter Additional Health Concerns Assessment Noted Time PHQ-9 Depression Total Score: 13 024 8:31 AM EDT A fall risk assessment has been complete d for the patient 10/06/2023 10:13 AM EDT A Body Mass Index follow-up plan has been documented for the patient 10/06/2023 11:30 AM EDT documented as of this encounter Care Teams Locomotive Mechanic Relationship Specialty Start Date End Date Joyce Shaw APRN [address] [place] [address] PCP - General 09/11/23 documented as of this encounter
--- OUTSIDE RECORDS SUMMARY | 2024-01-11 19:06 | XMS_ITS | Encounter Summary ---
Author Organization [facility] Address [address] [place] [address] Care Team Providers Care Benefits Analyst Name Role Phone Joyce Shaw APRN Primary Care Provider [phone] Encounter Details Date Type Department Care Team (Late st Contact Info) Description 11/30/2023 Telephone [facility] Center [address] [place] [address] Giana Mays MD [address] [place] [address] 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 Tobacco Use Types Packs/Day Years [...] place to sleep or slept in a long-term (including now)? 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 Mays would work pt in to clinic schedule nextMonday, 12/04 @ 0900. Moved pt's appt from 0830 to 0900. Instructed to call back w/ any questions or concerns. documented in this encounter Plan of Treatment Upcoming Encounters Date Type Department Care Team (Late st Contact Info) Description 01/12/2024 9:30 AM EST Office Visit [facility] Medicine Specialties [address] [place] [address] Sean Rod MD [address] [place] [address] 01/16/2024 9:30 AM EST Office Visit [facility] Breast Care [place] [address] [facility], 2nd [place] [address] Giana Mays MD 800 [facility] [address] [place] [address] 03/05/2024 8:00 AM EST Appointment [facility] Breast Breast Care [facility] [address] [facility] [address] [place] [address] 03/05/2024 9:00 AM EST Appointment [facility] Breast Breast Care [facility] [address] [address] [place] [address] 03/05/2024 10:00 AM EST Office Visit [facility] [place] [address] [facility], 2nd [place] [address] Giana Mays MD 800 [facility] Joaquina [facility] [address] [place] [address] documented as of this encounter Visit Diagnoses [...] documented as of this encounter Care Teams Benefits Analyst Relationship Specialty Start Date End Date Joyce Shaw, TERESA [address] [place] [address] PCP - General 09/11/23 documented as of this encounter
--- OUTSIDE RECORDS SUMMARY | 2024-01-11 19:06 | XMS_ITS | Encounter Summary ---
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 [employer] Ultra Test test strip 4 Ozempic, 0.25 or 0.5 MG/DOSE, 2 MG/3ML solution pen-injector INJECT 0.5 MG WEEKLY SUBCUTANEOUSLY FOR DIABETES 4 propranolol (Inderal) 20 MG tablet Take 1 tablet (20 mg) by mouth 2 (two) times a day. cariprazine (Vraylar) 3 MG capsule Take 1 capsule (3 mg) by mouth every night. 12/26/19 24 lamoTRIgine (LaMICtal) 200 MG tablet [...] Description 01/12/2024 9:30 AM EST Office Visit [facility] [address] [place] [address] Sean Rod MD [address] [place] [address] 01/16/2024 9:30 AM EST Office Visit [facility] Breast [facility] [address] [facility], 2nd [place] [address] Giana Mays MD 800 [facility] Joaquina Guzman [address] [address] 03/05/2024 8:00 AM EST Appointment [facility] Breast [facility] [address] Guz[address] [facility] 800 [place] [address] 03/05/2024 9:00 AM EST Appointment [facility] [address] [facility] 800 [place] [address] 03/05/2024 10:00 AM EST Office Visit [facility] [address] [facility], [address]nd [place] [address] Giana Mays MD 800 [facility] Joaquina Guzman [address] [address] documented as of this encounter Procedures Procedure Name Priority Date/Time Associated Diagnosis Comments US BREAST LIMITED RIGHT Routine 10/10/2023 12:18 PM EDT 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 ??Architecture distortion is likely due to the surgery change, but is new from 07/21/2023. Left Breast BI-RADS Code: BI-RADS 2, Benign finding. RECOMMENDATIONS: Right Breast Recommendations: Diagnostic Mammogram in 6 Months ??Clinical Correlation and Management Left Breast Recommendations: Diagnostic Mammogram in 1 Year CRITICAL RESULT: No. COMMUNICATION: The results and recommendations were discussed with the patient and a printed lay language version of the imaging report was given to the patient at the time of the visit. The mammogram was read with the assistance of CAD and tomosynthesis. By electronically signing this report, I, the attending physician, attest that I have personally reviewed the images/data for the above examination(s) and agree with the final edited report. Drafted by Naman Sheriff MD on 10/10/2023 11:49 AM Final report signed by Sofia Foy MD on 10/10/2023 12:48 PM Narrative 10/10/2023 12:48 PM EDT CLINICAL INDICATION: 32-year-old female with history of right breast abscess adjacent to the right nipple treated with drainage and antibiotics in August 2023. Endorses residual severe tenderness in the right breast and continuous brown nipple discharge. History of multiple prior lumpectomies and recurrent abscesses since April 2022. 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 TECHNIQUE: Bilateral diagnostic mammogram was performed. Computer assisted detection was used in the interpretation of this study. Tomosynthesis was used in the interpretation of this study. Multiplanar, rollins scale directed ultrasound of ??the right breast with limited Doppler vascular ultrasound was performed. Elastography was performed. COMPARISON: 07/21/2023, 11/29/2022, 11/18/2022, 03/21/2022 Bilateral Breast Density: Almost entirely fatty FINDINGS: Mammogram and ultrasound Findings: Right breast: 1. On mammogram, there is a 29 mm architecture distortion in the subareolar region. Focused ultrasound demonstrates distorted tissues in the subareolar region. There is a 12 mm anechoic subareolar cyst at 1:00 position. Elastography:?? Area of interest was soft on elastography Left breast: Postbiopsy changes with surgical clip in the left anterior breast. No additional suspicious masses, calcifications or areas of architecture distortion. Procedure Note Jez Foy MD - 10/10/2023 CLINICAL INDICATION: 32-year-old female with history of right breast abscess adjacent to theright nipple treated with drainage and antibiotics in August 2023. Endorsesresidual severe tenderness in the right breast and continuous brown nippledischarge. History of multiple prior lumpectomies and recurrent abscessessince April 2022. 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 TECHNIQUE: Bilateral diagnostic mammogram was performed. Computer assisted detection was used in the interpretation of this study.Tomosynthesis was used in the interpretation of this study. Multiplanar, rollins scale directed ultrasound of the right breast withlimited Doppler vascular ultrasound was performed. Elastography wasperformed. COMPARISON: 07/21/2023, 11/29/2022, 11/18/2022, 03/21/2022 Bilateral Breast Density: Almost entirely fatty FINDINGS: Mammogram and ultrasound Findings: Right breast: 1. On mammogram, there is a 29 mm architecture distortion in thesubareolar region. Focused ultrasound demonstrates distorted tissues in the subareolarregion. There is a 12 mm anechoic subareolar cyst at 1:00 position.Elastography:?? Area of interest was soft on elastography Left breast: Postbiopsy changes with surgical clip in the left anteriorbreast. No additional suspicious masses, calcifications or areas ofarchitecture distortion. IMPRESSION: Right Breast BI-RADS Code: BI-RADS 3, Probably benign finding.Architecture distortion is likely due to the surgery change, but is newfrom 07/21/2023. Left Breast BI-RADS Code: BI-RADS 2, Benign finding. RECOMMENDATIONS: Right Breast Recommendations: Diagnostic Mammogram in 6 Months ClinicalCorrelation and Management Left Breast Recommendations: Diagnostic Mammogram in 1 Year CRITICAL RESULT: No. COMMUNICATION: The results and recommendations were discussed with the patient and aprinted lay language version of the imaging report was given to thepatient at the time of the visit. The mammogram was read with theassistance of CAD and tomosynthesis. By electronically signing this report, I, the attending physician, attestthat I have personally reviewed the images/data for the aboveexamination(s) and agree with the final edited report. 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
--- OUTSIDE RECORDS SUMMARY | 2024-01-11 19:06 | XMS_ITS | Encounter Summary ---
Author Organization [facility] Address [address] [place] [address] Care Team Providers Care Clerk Entry Level Name Role Phone Joyce Shaw TERESA Primary Care Provider + [phone] Reason for Visit * Reason Comments Labs Encounter Details Date Type Department Care Team ([facility] st Contact Info) Description 11/06/2023 10:00 AM EDT Clinical Support [facility] Breast Care Center [address] [facility], 2nd [place] [address] Abby Haque RN [facility] 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 Tobacco Use Types Packs/Day Years [...] place to sleep or slept in a prison (including now)? 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) to steady your nerves or to get [...] Description 01/12/2024 9:30 AM EST Office Visit [place] [facility] [address], [address] [place] [address] Sean Rod MD [address] [place] [address] 01/16/2024 9:30 AM EST Office Visit [facility] Breast Care [place] [address] [facility], 2nd [place] [address] Giana Mays MD 800 [facility] [address] [address] 03/05/2024 8:00 AM EST Appointment [facility] [address] [facility] 800 [place] [address] 03/05/2024 9:00 AM EST Appointment [facility] [address] [facility] 800 [place] [address] 03/05/2024 10:00 AM EST Office Visit [facility] [address] [facility], [address]nd [place] [address] Giana Mays MD 800 [facility] [address] [address] documented as of this encounter Visit Diagnoses [...] documented as of this encounter Care Teams Clerk Entry Level Relationship Specialty Start Date End Date Joyce Shaw, TERESA [facility] [place] [address] PCP - General 09/11/23 documented as of this encounter
--- OUTSIDE RECORDS SUMMARY | 2024-01-11 19:06 | XMS_ITS | Encounter Summary ---
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] Procedures IL MASTECTOMY, SIMPLE, COMPLETE Right total mastectomy, flat closure Giana Mays MD [address] [address] Phone: tel: fax: [facility] [address] [place] [address] Phone: tel: Referral ID Status Reason Start Date Expiration Date Visits Re quested Visits Authorized [id number] 1 1 Encounter Details Date Type Department Care Team (Late st Contact Info) Description 12/25/2023 6:24 PM EST Anesthesia Event [facility] [address] [place] [address] Ananda Mcghee MD [address] [place] [address] Cata Hooker CRNA, TYLER [address] [place] [address] Anesthesia Record Procedure Summary Procedure Name Responsible Anesthesiologist Anesthesia Start Time Anesthesia Stop Time Right total mastectomy, flat closure (Right) Ananda Mcghee MD 12/25/23 1824 12/25/232007 Events Date Time Event Comment 12/25/2023 1405 Moris Patient given 2 mg in preop area prior to OR transport. Upon arrival into OR 17, the alpine guide called into Dr. Mays other room, 5A, when we were notified that Dr. Mays was not ready for the patient, Ms. Dowd, to be taken to the OR. Dr. Mays said it would be another 2-3 hours before she would be ready to start Ms. Dowd's procedure. 182 In Room 1824 An Start The patient was reevaluated immediately before sedation and remains eligible for anesthesia plan. 182 An Start Data 1828 An Induction The patient was reevaluated immediately before moderate or deep sedation use and before anesthesia induction. 183 An Intubation 183 Anesthesia Ready 1846 Proc Start 1951 Proc Fin 1955 An Extubation 2000 an stop data 2001 Out of Room 2006 Handoff to Receiving I compl eted my handoff to the receiving clinician during which we: 1. Identified the patient 2. Identified the responsible provider 3. Reviewed the pertinent medical history 4. Discussed the surgical course 5. Reviewed intra-op anesthesia management and issues during anesthesia 6. Set expectations for post-procedure period 7. Allowed opportunity for questions and acknowledgement of understanding. 2007 An Stop Meds Name Total midazolam (Versed) injection 1 mg/mL 4 m g fentaNYL (Sublimaze) injection 50 mcg/mL 100 mcg propofol (Diprivan) injection 10 mg/mL 2 00 mg ondansetron (Zofran) injection 2 mg/mL 4 mg dexamethasone (Decadron) injection 4 mg/ mL 4 mg rocuronium (ZeMuron) injection 10 mg/mL 60 mg sugammadex (Bridion) injection 100 mg/mL 200 mg glycopyrrolate (Robinul) injection 0.2 m g/mL 0.2 mg lidocaine PF (Xylocaine-MPF) 2% 100 mg ePHEDrine injection prefilled syringe 5 mg/mL 10 mg phenylephrine (Edison-Synephrine) prefilled syringe 1 mg/10 mL 500 mcg ceFAZolin (Ancef) vial 1 g 3 g HYDROmorphone (Dilaudid) injection 1 mg/ mL 1.5 mg dexmedetomidine (Precedex) infusion in N aCl 4 mcg/mL 24 mcg lactated Ringer's infusion 800 mL * Agents Name O2 N2O Air Sevoflurane Isoflurane Desflurane Inspired Desflurane Inspired Isoflurane Inspired Sevoflurane N2O Inspired N2O * Blood No blood administrations on file. Lines, Drains, and Airways Type Details Placement Removal Wound 12/25/23; Other (Incision); Breast; Right 12/25/23 0000 by Yris Kolb Closed/Suction Drain 12/25/23; 193; Yes ; 1; Right; Breast; Bulb 12/25/23 193 by Sofya Benitez Closed/Suction Drain 12/25/23; 1942; 2; Right; Breast; Bulb 12/25/231942 by Sofya Benitez Peripheral IV Placement Date: 06/13; Placement Time: 1316; Catheter Size: 20 G; Orientation: Anterior, Left; Location: Forearm; Site Prep: Chlorhexidine ; Inserted by: jadyn chatman rn; Insertion Attempts: 1; Patient Tolerance: Tolerated well; Removal Date: 12/26/23; Removal Time: 122; Removal Reason: Discharge 12/25/23 1317 by Dora Chatman RN 12/26/23 122 by Jorge Larsen RN ETT Placement Date: 06/13; Placement Time: 1831 (created via procedure documentation); Mask Ventilation: 2; Technique: Direct laryngoscopy; Type: ETT - single; Single Lumen Tube Size: 7 mm; Cuffed: Yes; Laryngoscope: Radha; Blade Size: 3; Location: Oral; Grade View: Grade I; Insertion Attempts: 1; Placement Verification: Auscultation, Capnometry; Airway Comments: Atraumatic. No change to dentition. ; Placed by: SILVA; Removal Date: 12/25/23; Removal Time: 195512/25/231831 by Donaldo Cramer CRNA, DNP 12/25/231955 by Ismael Meadows DO documented in this encounter 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 Tobacco Use Types Packs/Day Years Used Date Smoking Tobacco: Former Cigarettes 0.3 0.2 0 05/2023 - 08/2023 Smokeless Tobacco: Never Alcohol Use Standard Drinks/Week [...] place to sleep or slept in a [place] facility (including now)? No 09/18/2023 PHQ-9 Answer Date [...] drink first t maurilio in the morning (EYE-ELECTRIC METER INSTALLER HELPER) to steady your nerves or to get rid of a hangover? 0 09/16/2023 CAGE Questionnaire Score 0 024 Utilities Answer Date Recorded In the past 12 months has [employer], [employer], oil, or water [employer] threatened to shut off services in your home? No 09/18/2023 Comments No Sex and Gender Information Value Date Recorded Sex Assigned at Not on file Legal Sex Female 7:54 PM EDT Gender Identity Not on file Sexual Orientation Not on file documented as of this encounter Miscellaneous Notes * Anesthesia Postprocedure Evaluation - Ismael Meadows DO - 12/25/2023 8:08 PM EST Patient: Ivon Moncada [place] Anesthesia Type: general Vitals Value Taken Time BP 106/862 12/25/232007 Temp 37.5 12/25/232007 Pulse 98 12/25/232006 Resp 13 12/25/232006 SpO2 100 % 12/25/232006 Vitals shown include unfiled device data. Anesthesia Post Evaluation Patient location during evaluation: PACU Patient participation: complete - patient participated Level of consciousness: awake Pain management: adequate (pain score 0-3) Airway patency: natural airway Cardiovascular status: acceptable and hemodynamically stable Respiratory status: acceptable, nonlabored ventilation, spontaneous ventilation, unassisted and face mask Hydration status: acceptable No notable events documented. Cosigned by Aki Gibson MD at 12/25/2023 8:26 PM EST Associated attestation - Aki Gibson MD - 12/25/2023 8:26 PM EST I agree with the findings and care plan documented in the postprocedure evaluation note. * Anesthesia Procedure Notes - Donaldo Cramer CRNA, DNP - 12/25/2023 6:48 PM EST Associated Order(s): Airway Airway Date/Time: 12/25/2023 6:32 PM Urgency: elective Airway not difficult General Information and Staff Patient location during procedure: OR HANDHOLE MACHINE OPERATOR: Donaldo Cramer CRNA, DNP Performed: HANDHOLE MACHINE OPERATOR Indications and Patient Condition Indications for airway [...] Additional Comments Atraumatic. No change to dentition. * Anesthesia Preprocedure Evaluation - Galindo Gaitan MD - 12/25/2023 1:47 PM EST Patient: Ivon Moncada [place] Procedure Information Date/Time: 12/25/23 1235 Procedure: Right total mastectomy, flat closure (Right) Location: [address] [place] [address] OR Surgeons: Giana Mays MD Relevant Problems Other (+) Enlarged lymph nodes in armpit Anesthesia Evaluation Clinical information reviewed: Med Hx Cardio: Htn. Denies h/o heart attack/heart failure/chest pain/palpitations. Reports she can climb 2flights of stairs without issue. ECG 12/25/23: NSR, possible LA enlargement, inferior infarct, age undetermined. QTC 452. ECG d/w pt and her mother, ECG c/w ECGs since 2018, no acute findings, pt to follow-up with her physician. Pulm: Denies GI: EOE; GERD, food-related : Denies Endo: DM; takes GLP-1, last dose 12/04/23, denies ever having any symptoms from the GLP-1 medication Neuro: Anxiety/depression per chart Heme: Denies Tobacco Smokes for three months, quit 09/12 Allergies See Epic Surg Hx H/o PONV Fam Hx Denies family h/o anesthetic complications Soc Hx Denies ETOH; h/o crack use, last used September 2023, recently graduated from the [employer] [facility] Status Hysterectomy NPO Status Date of Last Liquid: 12/25/23 Time of Last Liquid: 899 Date of Last Solid: 12/24/23 Time of Last Solid: 1999 Last Intake Type: Clear fluids Time of Last Void: 1302 Physical Exam Airway Mouth opening: normal Cardiovascular Dental Pulmonary Neurological Skin Musculoskeletal Extremities Anesthesia Plan ASA 3 Plan was reviewed with: HANDHOLE MACHINE OPERATOR Anesthesia technique(s) discussed with the patient/family: general Anesthesia plan agreed upon was: general Anesthetic plan and risks discussed with patient and parent/guardian. Use of blood products discussed with patient and parent/guardian who consented to blood products. Additional Equipment Requests documented in this encounter Plan of Treatment Upcoming Encounters Date Type Department Care Team (Late st Contact Info) Description 01/12/2024 9:30 AM EST Office Visit [facility] [address] [place] [address] Sean Rod MD [address] [place] [address] 01/16/2024 9:30 AM EST Office Visit [facility] [place] [address] , [address] [place] [address] Giana Mays MD [address]zman [facility] [address] [place] [address] 03/05/2024 8:00 AM EST Appointment [facility] [address] [facility] [address] [place] [address] 03/05/2024 9:00 AM EST Appointment [facility] [place] [facility] [address] [facility] [address] [place] [address] 03/05/2024 10:00 AM EST Office Visit [facility] Breast [facility] [address] [facility], [address]nd [place] [address] Giana Mays MD 800 [facility] [address] Guzman [address] [place] [address] documented as of this encounter Procedures Procedure Name Priority Date/Time Associated Diagnosis Comments PB ANESTHESIA PLACEHOLDER Routine 12/25/2023 6:32 PM EST IL AN ELECTIVE ENDOTRACHEAL AIRWAY Routine 12/25/2023 6:32 PM EST documented in this encounter Results * IL AN ELECTIVE ENDOTRACHEAL AIRWAY, PB ANESTHESIA PLACEHOLDER (12/25/2023 6:32 PM EST) Narrative Donaldo Cramer CRNA, DNP - 12/25/2023 6:32 PM EST Donaldo Cramer CRNA, DNP ? 12/25/2023 ??6:49 PM Airway Date/Time: 12/25/2023 6:32 PM Urgency: elective Airway not difficult General Information and Staff Patient location during procedure: OR HANDHOLE MACHINE OPERATOR: Donaldo Cramer CRNA, DNP Performed: HANDHOLE MACHINE OPERATOR Indications and Patient Condition Indications for airway [...] Additional Comments Atraumatic. No change to dentition. Donaldo Cramer CRNA, DNP ANESTHESIA ORDERABLES Fin al Result documented in this encounter Visit Diagnoses Not on filedocumented in this encounter Administered Medications Inactive Administered Medications - up to 3 most recent administrations Medication Order MAR Action Action Date Dose Rate Site ceFAZolin (Ancef) injection Intravenous, As needed, Starting on Mon12/25/23 at 1845, Until Mon12/25/23 at 2007, Routine, Anesthesia Intraprocedure Given 12/25/2023 6:45 PM EST 3 g dexamethasone (Decadron) injection Intravenous, As needed, Starting on Mon12/25/23 at 1842, Until Mon12/25/23 at 2007, Routine, Anesthesia Intraprocedure Given 12/25/2023 6:42 PM EST 4 mg dexmedetomidine in NS (Precedex) 4 mcg/mL infusion Intravenous, As needed, Starting on Mon12/25/23 at 1927, Until Mon12/25/23 at 2007, Routine Given 12/25/2023 7:40 PM EST 8 mcg Given 12/25/2023 7:37 PM EST 8 mcg Given 12/25/2023 7:27 PM EST 8 mcg ePHEDrine Sulfate injection Intravenous, As needed, Starting on Mon12/25/23 at 1920, Until Mon12/25/23 at 2007, Routine, Anesthesia Intraprocedure Given 12/25/2023 7:34 PM EST 5 mg Given 12/25/2023 7:20 PM EST 5 mg fentaNYL (Sublimaze) injection Intravenous, As needed, Starting on Mon12/25/23 at 1828, Until Mon12/25/23 at 2007, Routine, Anesthesia Intraprocedure Given 12/25/2023 6:28 PM EST 100 mcg glycopyrrolate (Robinul) injection Intravenous, As needed, Starting on Mon12/25/23 at 1842, Until Mon12/25/23 at 2007, Routine, Anesthesia Intraprocedure Given 12/25/2023 6:42 PM EST 0.2 mg HYDROmorphone (Dilaudid) injection Intravenous, As needed, Starting on Mon12/25/23 at 1853, Until Mon12/25/23 at 2007, Routine, Anesthesia Intraprocedure Given 12/25/2023 8:08 PM EST 0.5 mg Given 12/25/2023 7:43 PM EST 0.1 mg Given 12/25/2023 7:29 PM EST 0.2 mg lactated Ringer's infusion Intravenous, Continuous PRN, Starting on Mon12/25/23 at 1824, Until Mon12/25/23 at 2007, Routine New Bag 12/25/2023 6:24 PM EST lidocaine PF (Xylocaine) 2 % injection Intravenous, As needed, Starting on Mon12/25/23 at 1828, Until Mon12/25/23 at 2007, Routine, Anesthesia Intraprocedure Given 12/25/2023 6:28 PM EST 100 mg midazolam (Versed) injection Intravenous, As needed, Starting on Mon12/25/23 at 1405, Until Mon12/25/23 at 2007, Routine, Anesthesia Intraprocedure Given 12/25/2023 6:24 PM EST 2 mg Given 12/25/2023 2:05 PM EST 2 mg ondansetron (Zofran) injection Intravenous, As needed, Starting on Mon12/25/23 at 1842, Until Mon12/25/23 at 2007, Routine, Anesthesia Intraprocedure Given 12/25/2023 6:42 PM EST 4 mg phenylephrine in NS (Edsion-Synephrine) 100 mcg/mL prefilled syringe Intravenous, As needed, Starting on Mon12/25/23 at 1914, Until Mon12/25/23 at 2007, Routine, Anesthesia Intraprocedure Given 12/25/2023 7:45 PM EST 100 mcg Given 12/25/2023 7:33 PM EST 100 mcg Given 12/25/2023 7:27 PM EST 100 mcg propofol (Diprivan) injection Intravenous, As needed, Starting on Mon12/25/23 at 1828, Until Mon12/25/23 at 2007, Routine, Anesthesia Intraprocedure Given 12/25/2023 6:28 PM EST 200 mg rocuronium (ZeMuron) injection Intravenous, As needed, Starting on Mon12/25/23 at 1828, Until Mon12/25/23 at 2007, Routine, Anesthesia Intraprocedure Given 12/25/2023 6:28 PM EST 60 mg sugammadex (Bridion) 200 MG/2ML injection Intravenous, As needed, Starting on Mon12/25/23 at 1951, Until 12/25/23 at 2008, Routine, Anesthesia Intraprocedure Given 12/25/2023 7:51 PM EST 200 mg documented in this encounter Additional Health Concerns Assessment Noted Time PHQ-9 Depression Total Score: 14 024 9:15 AM EDT A fall risk assessment has been complete d for the patient 10/06/2023 10:13 AM EDT A Body Mass Index follow-up plan has been documented for the patient 12/26/2023 12:24 PM EST documented as of this encounter Care Teams Heel Cover Splitter Relationship Specialty Start Date End Date Joyce Shaw APRN [address] [place] [address] PCP - General 09/11/23 documented as of this encounter
--- OUTSIDE RECORDS SUMMARY | 2024-01-11 19:06 | XMS_ITS | Encounter Summary ---
Author Organization [facility] Address [address] [id number] Care Team Providers Care Laborer Beam House Name Role Phone Shaw, Joyce C TERESA Primary Care Provider [phone] Encounter Details Date Type Department Care Team (Late st Contact Info) Description 12/05/2023 Orders Only [facility] [address] [facility], [address]nd [place] [address] Giana Mays MD 800 [facility] [address] [place] [address] Atypical hyperplasia of breast (Primary Dx) 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 Tobacco Use Types [...] place to sleep or slept in a longterm (including now)? No 09/18/2023 PHQ-9 Answer Date [...] drink first t maurilio in the morning (EYE-IRONWORKER WIRE FENCE ERECTOR) to steady your nerves or to get [...] Upcoming Encounters Date Type Department Care Team ([facility] st Contact Info) Description 01/12/2024 9:30 AM EST Office Visit [facility] Medicine Specialties [address] [place] [address] Sean Rod MD [address] [place] [address] 01/16/2024 9:30 AM EST Office Visit [facility] Breast [facility] [address] [facility], [address] [place] [address] Giana Mays MD [address] [facility] [address]aqu[address] Guzman [facility] [address] [place] [address] 03/05/2024 8:00 AM EST Appointment [facility] [address] [facility] [address] [place] [address] 03/05/2024 9:00 AM EST Appointment [facility] [address] [facility] [address] [place] [address] 03/05/2024 10:00 AM EST Office Visit [facility] [address] [facility] [address] [place] [address] Giana Mays MD [address] [facility] [address] Guzman [facility] [address] [place] [address] documented as of this encounter Visit Diagnoses Diagnosis Atypical hyperplasia of breast- Primary documented in this encounter Additional Health Concerns Assessment Noted Time PHQ-9 Depression Total Score: 14 12/04/2 024 9:15 AM EDT A fall risk assessment has been complete d for the patient 10/06/2023 10:13 AM EDT A Body Mass Index follow-up plan has been documented for the patient 10/06/2023 11:30 AM EDT documented as of this encounter Care Teams Laborer Beam House Relationship Specialty Start Date End Date Joyce Shaw, TERESA [address] [place] [address] PCP - General 09/11/23 documented as of this encounter
--- OUTSIDE RECORDS SUMMARY | 2024-01-11 19:06 | XMS_ITS | Encounter Summary ---
Author Organization [facility] Address [address] [place] [address] Care Team Providers Care Driller And Broacher Name Role Phone Declan Shawy Lukasz MOORE Primary Care Provider [phone] Encounter Details Date Type Department Care Team (Late st Contact Info) Description 10/24/2023 Telephone [facility] [address] [place] [address] Giana Mays MD [address] [place] [address] 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 Tobacco Use Types Packs/Day [...] place to sleep or slept in a detention (including now)? No 09/18/2023 PHQ-9 Answer Date [...] drink first t maurilio in the morning (EYE-ELECTRONIC IMAGING SYSTEM OPERATOR) to steady your nerves or [...] Telephone Encounter - Jennifer Estrada RN - 10/25/2023 12:01 PM EDT Attempted to call pt at [facility] @ [phone] and had to leave a message explaining thereare no sooner surgery dates to move the pt up. Left [facility] phone number for pt to call back w/ any further questions. * Telephone Encounter - Regulo Poon - 10/24/2023 1:13 PM EDT Patient wants to move her surgery date up sooner instead of December. Please call patient documented in this encounter Plan of Treatment Upcoming Encounters Date Type Department Care Team (Late st Contact Info) Description 01/12/2024 9:30 AM EST Office Visit [place] [facility] [address] [place] [address] Sean Rod MD [address] [place] [address] 01/16/2024 9:30 AM EST Office Visit [facility] [address] [facility], [address]nd [place] [address] Giana Mays MD [address] [facility] [address] Guzman [facility] [address] [place] [address] 03/05/2024 8:00 AM EST Appointment [facility] [place] [address] [address] [facility] [address] [place] [address] 03/05/2024 9:00 AM EST Appointment [facility] [address] [place] [address] 03/05/2024 10:00 AM EST Office Visit [facility] [address] [facility], [address] [place] [address] Giana Mays MD [address] [facility] [address] [place] [address] documented as of this encounter Visit Diagnoses [...] documented as of this encounter Care Teams Driller And Broacher Relationship Specialty Start Date End Date Joyce Shaw, TERESA [address] [place] [address] PCP - General 09/11/23 documented as of this encounter
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
--- OUTSIDE RECORDS SUMMARY | 2024-01-11 19:06 | XMS_ITS | Encounter Summary ---
Author Organization [facility] Address [address] [place] [address] Care Team Providers Care Geometry Tutor Name Role Phone Joyce Shaw TERESA Primary Care Provider + [phone] Encounter Details Date Type Department Care Team (Latest Contact Info) Description 12/05/2023 Travel 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 Tobacco Use Types Packs/Day [...] place to sleep or slept in a chcf (including now)? No 09/18/2023 PHQ-9 Answer Date [...] drink first t maurilio in the morning (EYE-INSTRUCTIONAL SERVICES LIBRARIAN) to steady your nerves or to [...] Visit [facility] [address], 2nd [place] [address] Sean Rod MD [address] [place] [address] 01/16/2024 9:30 AM EST Office Visit [facility] Breast [facility] [address] [facility], 2nd [place] [address] Giana Mays MD 800 [facility] [address] [address] 03/05/2024 8:00 AM EST Appointment PAV [facility] [address] [address] 03/05/2024 9:00 AM EST Appointment P[facility] 234 [facility] 800 [place] [address] 03/05/2024 10:00 AM EST Office Visit [facility] 7[address] [facility], 2nd [place] [address] Giana Mays MD 800 [facility] Megan [address] [address] documented as of this encounter Visit Diagnoses [...] documented as of this encounter Care Teams Geometry Tutor Relationship Specialty Start Date End Date Joyce Shaw APRN [address] [place] [address] PCP - General 09/11/23 documented as of this encounter
--- OUTSIDE RECORDS SUMMARY | 2024-01-11 19:06 | XMS_ITS | Encounter Summary ---
Author Organization [facility] Address [address] [place] [address] Care Team Providers Care Lithograph Press Feeder Name Role Phone ShawJoyce barry TERESA Primary Care Provider [phone] Encounter Details Date Type Department Care Team (Late st Contact Info) Description 11/13/2023 Orders Only [facility] 7[address] [facility], 2nd [place] [address] Giana Mays MD 800 [facility] [address] [place] [address] Bloody discharge from left nipple (Primary Dx) 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 Tobacco Use Types [...] place to sleep or slept in a custodial (including now)? No 09/18/2023 PHQ-9 Answer Date [...] drink first t maurilio in the morning (EYE-IMMUNOPATHOLOGIST) to steady your nerves or to get [...] Upcoming Encounters Date Type Department Care Team ([facility] st Contact Info) Description 01/12/2024 9:30 AM EST Office Visit [facility] Medicine Specialties [address], 2nd [place] [address] Sean Rod MD [address] [place] [address] 01/16/2024 9:30 AM EST Office Visit [facility] Breast [facility] [address] [facility], 2nd [place] [address] Giana Mays MD 800 [facility] 134 [place] [address] 03/05/2024 8:00 AM EST Appointment PAV [facility] Breast [facility] 234 [facility] [address] [place] [address] 03/05/2024 9:00 AM EST Appointment P[facility] 234 [facility] [address] [place] [address] 03/05/2024 10:00 AM EST Office Visit [facility] [address] [facility], 2nd [place] [address] Giana Mays MD 800 [facility] [address] [place] [address] documented as of this encounter Results * US Breast Limited [...] Visit Diagnoses Diagnosis Bloody discharge from left nipple- Primary Bloody discharge from left nipple documented in this encounter Additional Health Concerns Assessment Noted Time PHQ-9 Depression Total Score: 13 024 8:31 AM EDT A fall risk assessment has been complete d for the patient 10/06/2023 10:13 AM EDT A Body Mass Index follow-up plan has been documented for the patient 10/06/2023 11:30 AM EDT documented as of this encounter Care Teams Lithograph Press Feeder Relationship Specialty Start Date End Date Joyce Shaw, TERESA [address] [place] [address] PCP - General 09/11/23 documented as of this encounter
--- OUTSIDE RECORDS SUMMARY | 2024-01-11 19:06 | XMS_ITS | Encounter Summary ---
Author Organization [facility] Address [address] [place] [address] Care Team Providers Care Engine Oiler Name Role Phone Declan Shawy Luaksz MOORE Primary Care Provider [phone] Encounter Details Date Type Department Care Team (Late st Contact Info) Description 11/10/2023 Telephone [facility] [address] 800 [place] [address] Giana Mays MD [address] [place] [address] 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 Tobacco Use Types Packs/Day [...] drink first t maurilio in the morning (EYE-LINE INSTALLER TROLLEY) to steady your nerves or to get [...] encounter Miscellaneous Notes * Telephone Encounter - Eboni Knowles - 11/10/2023 2:37 PM EDT Mandie with [facility] called wanting to speak with eliane has been playing phone tag. Let patient know that [place] has reached out to Dr. Mays seeing if she would like pt to come in sooner for breast pain but hasn't heard anything back. Please return call when info is available. documented in this encounter Plan of Treatment Upcoming Encounters Date Type Department Care Team (Late st Contact Info) Description 01/12/2024 9:30 AM EST Office Visit [facility] Medicine Specialties [address], 2nd [place] [address] Sean Rod MD [address] [place] [address] 01/16/2024 9:30 AM EST Office Visit [facility] Breast Care [place] 7[address] [facility], 2nd [place] [address] Giana Mays MD 800 [facility] Megan Bldg [address] [place] [address] 03/05/2024 8:00 AM EST Appointment PAV Breast [facility] Breast [facility] 234 Joaquina Guzman [facility] 800 [place] [address] 03/05/2024 9:00 AM EST Appointment PAV Breast [facility] Breast [facility] 234 [facility] 800 [place] [address] 03/05/2024 10:00 AM EST Office Visit [facility] Breast [facility] [place] 7[address] [facility], 2nd [place] [address] Giana Mays MD 800 [facility] [address] [place] [address] documented as of this encounter Visit Diagnoses [...] documented as of this encounter Care Teams Engine Oiler Relationship Specialty Start Date End Date Joyce Shaw, TERESA [address] [place] [address] PCP - General 09/11/23 documented as of this encounter
--- OUTSIDE RECORDS SUMMARY | 2024-01-11 19:06 | XMS_ITS | Encounter Summary ---
Author Organization [facility] Address [address] [place] [address] Care Team Providers Care Dairy Frozen Manager Name Role Phone Declan Shawy Lukasz MOORE Primary Care Provider [phone] Encounter Details Date Type Department Care Team (Late st Contact Info) Description 11/09/2023 Telephone [facility]AV Breast [facility] [address] 800 [place] [address] Giana Mays MD [address] [place] [address] 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 Tobacco Use Types Packs/Day [...] place to sleep or slept in a halfway (including now)? No 09/18/2023 PHQ-9 Answer Date [...] drink first t maurilio in the morning (EYE-PATCHING MACHINE OPERATOR) to steady your nerves or to [...] Telephone Encounter - Jennifer Estrada RN - 11/13/2023 11:10 AM EDT I have scheduled pt to see Dr. Mays on Nov 29 @ 0800, followed by a left breast US if needed. * Telephone Encounter - Regulo Poon - 11/09/2023 11:05 AM EDT Patient is calling having Mx on right breast and wanted to let Dr. Mays know now she is having same issue out of left breast. Please call patient at [phone] ext. [phone] documented in this encounter Plan of Treatment Upcoming Encounters Date Type Department Care Team (Late st Contact Info) Description 01/12/2024 9:30 AM EST Office Visit [facility] [address], 2nd [place] [address] Sean Rod MD [address] [place] [address] 01/16/2024 9:30 AM EST Office Visit [facility] Breast Care [place] [address] [facility], 2nd [place] [address] Giana aMys MD 800 [facility] Jam [address] [place] [address] 03/05/2024 8:00 AM EST Appointment PAV [facility] [place] [facility] [place] [address] Joaquina Megan [facility] 800 [place] [address] 03/05/2024 9:00 AM EST Appointment [facility] 234 Joaquina Guzman Building 800 [place] [address] 03/05/2024 10:00 AM EST Office Visit [facility] [address] , 2nd [place] [address] Giana Mays MD 800 [facility] Joaquina Guzman Bldg [address] [place] [address] documented as of this encounter [...] documented as of this encounter Care Teams Dairy Frozen Manager Relationship Specialty Start Date End Date Joyce Shaw, TERESA [address] [place] [address] PCP - General 09/11/23 documented as of this encounter
--- OUTSIDE RECORDS SUMMARY | 2024-01-11 19:06 | XMS_ITS | Encounter Summary ---
Author Organization [facility] Address [address] [place] [address] Care Team Providers Care Cleat Layer Name Role Phone Declan Shawy Lukasz MOORE Primary Care Provider [phone] Encounter Details Date Type Department Care Team (Late st Contact Info) Description 10/16/2023 Telephone PAV Breast Care [facility] Breast Care Center [address] 800 [place] [address] Giana Mays MD [address] [place] [address] 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 Tobacco Use Types Packs/Day [...] drink first t maurilio in the morning (EYE-WOOD HEEL FINISHER) to steady your nerves or to get [...] Telephone Encounter - Jennifer Estrada RN - 10/18/2023 9:08 AM EDT Attempted to call pt again and reached mother, who stated she would ask pt to call back. * Telephone Encounter - Jennifer Estrada RN - 10/16/2023 2:01 PM EDT Called to speak to pt regarding call from [facility]. Pt was not in. Left message for pt to call back to discuss. * Telephone Encounter - Regulo Poon - 10/16/2023 9:38 AM EDT Mandie Abad with [facility] [phone] is calling in regards to patient and needs to speak with nurse. Please call documented in this encounter Plan of Treatment Upcoming Encounters Date Type Department Care Team (Late st Contact Info) Description 01/12/2024 9:30 AM EST Office Visit [facility] [address], 2nd [place] [address] Sean Rod MD [address] [place] [address] 01/16/2024 9:30 AM EST Office Visit [facility] Breast Care Center 740 [facility], 2nd [place] [address] Giana Mays MD 800 [facility] Joaquina Miltonrickson Bldg [address] [place] [address] 03/05/2024 8:00 AM EST Appointment PAV Breast [facility] Breast [facility] 234 Joaquina Guzman [facility] 800 [place] [address] 03/05/2024 9:00 AM EST Appointment PAV [facility] Breast [facility] 234 Joaquian Guzman [facility] 800 [place] [address] 03/05/2024 10:00 AM EST Office Visit [facility] [place] 7[address] [facility], 2nd [place] [address] Giana Mays MD 800 [facility] Joaquina Guzman [address] [address] documented as of this encounter Visit [...] documented as of this encounter Care Teams Cleat Layer Relationship Specialty Start Date End Date Joyce Shaw, MEDART OPERATOR [address] [place] [address] PCP - General 09/11/23 documented as of this encounter
--- OUTSIDE RECORDS SUMMARY | 2024-01-11 19:06 | XMS_ITS | Encounter Summary ---
Author Organization [facility] Address [address] [place] [address] Care Team Providers Care Ship Rigger Name Role Phone Joyce Shaw APRN Primary Care Provider [phone] Encounter Details Date Type Department Care Team (Late st Contact Info) Description 11/01/2023 Telephone PAV Breast Care [facility] Breast [facility] Center [address] 800 [place] [address] Giana Mays MD [address] [place] [address] 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 Tobacco Use Types Packs/Day [...] place to sleep or slept in a senior living (including now)? No 09/18/2023 PHQ-9 Answer Date [...] drink first t maurilio in the morning (EYE-FULLER BRUSH MAN) to steady your nerves or to get [...] Telephone Encounter - Jennifer Estrada RN - 11/02/2023 2:29 PM EDT Spoke to nurse at [facility] who reports pt quit smoking in August. Scheduled pt to come in next Monday, Nov 05 @ 1000 for blood work. * Telephone Encounter - Jennifer Estrada RN - 11/02/2023 1:40 PM EDT Called [facility] to inquire when pt stopped smoking as this test should ideally be scheduled4-6 weeks from time of cessation. They will reach out to the nursing staff and get back to our office. * Telephone Encounter - Eboni Knowles - 11/01/2023 11:00 AM EDT Pt called stating she has surgery on 12/25/[address] Mays that she would need to do a nicotine test to make sure no nicotine is in her system 3 weeks before surgery. Patient called to get this scheduled. Please return call to [facility]. Asked to call back to [phone] ext [phone]. Stated when call back, can schedule with the person whoanswers the phone as she is in [facility] until November. Also asked if have preference for day or time and pt said no. documented in this encounter Plan of Treatment Upcoming Encounters Date Type Department Care Team (Late st Contact Info) Description 01/12/2024 9:30 AM EST Office Visit [facility] Medicine Specialties [address], 2nd [place] [address] Sean Rod MD [address] [place] [address] 01/16/2024 9:30 AM EST Office Visit [facility] Breast [facility] [address] [facility], 2nd [place] [address] Giana Mays MD [address] [facility] Joaquina Guzman [facility] 134 [place] [address] 03/05/2024 8:00 AM EST Appointment PAV [facility] 234 Joaquina Megan [facility] 800 [place] [address] 03/05/2024 9:00 AM EST Appointment PAV [facility] 234 Joaquina Megan [facility] 800 [place] [address] 03/05/2024 10:00 AM EST Office Visit [facility] [address] [facility], 2nd [place] [address] Giana Mays MD 800 [facility] Joaquina Guzman [facility] 134 [place] [address] documented as of this encounter Results * Nicotine and Metabolites, Serum or Plasma, Quantitative (11/06/2023 9:59 AM EDT) NICOTINE <5 <5 ng/mL 11/10/2023 10:14 AM EDT [facility] Cotinine <5 <5 ng/mL 11/10/2023 10:14 AM EDT [facility] Blood Venous blood specimen / Unknown Venipuncture / Unknown 11/06/2023 9:59 AM EDT 11/06/2023 10:07 AM EDT Narrative [facility] - 11/10/2023 10:14 AM EDT Testing performed by LC-MS/MS at the [facility] Special Chemistry/Toxicology Laboratory. This test was developed and its performance characteristics determined by [facility]. ??This assay has not been cleared by the FDA. ??The laboratory is regulated under CLIA as qualified to perform high-complexity testing. This test is used for clinical purposes. us Giana Mays MD LAB BLOOD ORDERABLES Final R esult [facility] 800 [place] [address] documented in this encounter Visit Diagnoses Diagnosis Tobacco use disorder- Primary documented in this encounter Additional Health Concerns Assessment Noted Time PHQ-9 Depression Total Score: 13 024 8:31 AM EDT A fall risk assessment has been complete d for the patient 10/06/2023 10:13 AM EDT A Body Mass Index follow-up plan has been documented for the patient 10/06/2023 11:30 AM EDT documented as of this encounter Care Teams Ship Rigger Relationship Specialty Start Date End Date Joyce Shaw, TERESA [address] [place] [address] PCP - General 09/11/23 documented as of this encounter
--- OUTSIDE RECORDS SUMMARY | 2024-01-11 19:06 | XMS_ITS | Encounter Summary ---
Author Organization [facility] Address [address] [place] [address] Care Team Providers Care Handbook Writer Name Role Phone Joyce Shaw TERESA Primary Care Provider + [phone] Encounter Details Date Type Department Care Team (Latest Contact Info) Description 10/10/2023 Travel 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 Tobacco Use Types Packs/Day [...] place to sleep or slept in a nursing home (including now)? No 09/18/2023 PHQ-9 Answer [...] drink first t maurilio in the morning (EYE-SHUTTLE FILLER) to steady your nerves or to get [...] Description 01/12/2024 9:30 AM EST Office Visit [facility] [address], 2nd [place] [address] Sean Rod MD [address] [place] [address] 01/16/2024 9:30 AM EST Office Visit [facility] Breast [facility] 7[address] [facility], 2nd [place] [address] Giana Mays MD 800 [facility] [address] [address] 03/05/2024 8:00 AM EST Appointment PAV [facility] [address] [address] 03/05/2024 9:00 AM EST Appointment PAV [facility] 234 [facility] 800 [place] [address] 03/05/2024 10:00 AM EST Office Visit [facility] [address] [facility], 2nd [place] [address] Giana Mays MD 800 [facility] Megan [address] [address] documented as of this encounter Visit Diagnoses [...] documented as of this encounter Care Teams Handbook Writer Relationship Specialty Start Date End Date Joyce Shaw APRN [address] [place] [address] PCP - General 09/11/23 documented as of this encounter
--- OUTSIDE RECORDS SUMMARY | 2024-01-11 19:06 | XMS_ITS | Encounter Summary ---
Author Organization [facility] Address [address] [place] [address] Care Team Providers Care Tufting Supervisor Name Role Phone Joyce Shaw TERESA Primary Care Provider + [phone] Encounter Details Date Type Department Care Team (Latest Contact Info) Description 12/25/2023 Travel 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 Tobacco Use Types Packs/Day [...] drink first t maurilio in the morning (EYE-JEWEL BEARING BROACHER) to steady your nerves or to get [...] [facility] [address], 2nd [place] [address] Sean Rod MD [address] [place] [address] 01/16/2024 9:30 AM EST Office Visit [facility] 7[address] [facility], 2nd [place] [address] Giana Mays MD 800 [facility] Megan [address] [address] 03/05/2024 8:00 AM EST Appointment PAV [facility] [address] [address] 03/05/2024 9:00 AM EST Appointment PAV [facility] 234 [facility] 800 [place] [address] 03/05/2024 10:00 AM EST Office Visit [facility] [address] [address] Giana Mays MD 800 [facility] Megan [address] [address] documented as of this encounter Visit Diagnoses [...] documented as of this encounter Care Teams Tufting Supervisor Relationship Specialty Start Date End Date Joyce Shaw APRN [address] [place] [address] PCP - General 09/11/23 documented as of this encounter
--- OUTSIDE RECORDS SUMMARY | 2024-01-11 19:06 | XMS_ITS | Encounter Summary ---
Author Organization [facility] Address [address] [place] [address] Care Team Providers Care Chief Of Hospital Medicine Name Role Phone Declan Shawy Lukasz MOORE Primary Care Provider [phone] Encounter Details Date Type Department Care Team (Late st Contact Info) Description 10/19/2023 Telephone PAV Breast Care [facility] Breast Care Center [address] 800 [place] [address] Giana Mays MD [address] [place] [address] 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 Tobacco Use Types Packs/Day [...] drink first t maurilio in the morning (EYE-SANDING MACHINE TENDER AUTOMATIC) to steady your nerves or to get [...] Telephone Encounter - Jennifer Estrada RN - 10/24/2023 12:57 PM EDT Darcy from [facility] called back to update on pt who is currently residing at their facility. Pt's nurse reports small amount of serosanguinous drainage from right nipple in absence of redness and fever. Discussed w/ Dr. Mays and explained to Darcy that the plan for surgery on 12/25/23 would remain the same, nothing would change. * Telephone Encounter - Jennifer Estrada RN - 10/20/2023 8:32 AM EDT Called pt again to discuss concerns. Pt's mom answered, explained that pt is currently in [facility] and is only allowed one phone call a day. Attempted to call [facility] to talk to pt or rehab team and had to leave a message asking someone to call back. * Telephone Encounter - Jennifer Estrada RN - 10/19/2023 1:03 PM EDT Left message for pt to call back to discuss ER visit and concerns. Also reiterated I have been trying to reach pt over the last couple days to discuss another phone call regarding pt. documented in this encounter Plan of Treatment Upcoming Encounters Date Type Department Care Team (Late st Contact Info) Description 01/12/2024 9:30 AM EST Office Visit [facility] [address] 2nd [place] [address] Sean Rod MD [address] [place] [address] 01/16/2024 9:30 AM EST Office Visit [facility] Breast [facility] 740 [facility], 2nd [place] [address] Giana Mays MD 800 [facility] Joaquina Guzman dg [facility] 134 [place] [address] 03/05/2024 8:00 AM EST Appointment P[facility] Breast [facility] 234 [facility] 800 [place] [address] 03/05/2024 9:00 AM EST Appointment PAV [facility] 234 [facility] 800 [place] [address] 03/05/2024 10:00 AM EST Office Visit [facility]AV [facility] 7[address] [facility], [address]nd [place] [address] Giana Mays MD 800 [facility] Joaquina Guzman [address] [address] documented as of this encounter Visit Diagnoses [...] documented as of this encounter Care Teams Chief Of Hospital Medicine Relationship Specialty Start Date End Date Joyce Shaw APRN [address] [place] [address] PCP - General 09/11/23 documented as of this encounter
--- OUTSIDE RECORDS SUMMARY | 2024-01-11 19:06 | XMS_ITS | Encounter Summary ---
Author Organization [facility] Address [address] [place] [address] Care Team Providers Care Telegraphic Typewriter Operator Name Role Phone Declan Shawy Lukasz MOORE Primary Care Provider [phone] Encounter Details Date Type Department Care Team (Late st Contact Info) Description 11/07/2023 Telephone PAV Breast [facility] Breast Care Center [address] [place] [address] Giana Mays MD [address] [place] [address] 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 Tobacco Use Types Packs/Day [...] place to sleep or slept in a group home (including now)? No 09/18/2023 PHQ-9 Answer [...] drink first t maurilio in the morning (EYE-SAFETY PATROL OFFICER) to steady your nerves or to get [...] Telephone Encounter - Jennifer Estrada RN - 11/08/2023 12:21 PM EDT Left msg at [facility] that after reviewing symptoms pt called in, recommendation would be for ptto seek care at a local ER if it is causing distress. documented in this encounter Plan of Treatment Upcoming Encounters Date Type Department Care Team (Late st Contact Info) Description 01/12/2024 9:30 AM EST Office Visit [facility] Medicine Specialties [address], 2nd [place] [address] Sean Rod MD [address] [place] [address] 01/16/2024 9:30 AM EST Office Visit [facility] Breast [facility] [address] 2nd [place] [address] Giana Mays MD 800 [facility] Megan [address] [address] 03/05/2024 8:00 AM EST Appointment PAV [facility] Breast [address] Megan [facility] [address] [place] [address] 03/05/2024 9:00 AM EST Appointment PAV [address] [place] [address] 03/05/2024 10:00 AM EST Office Visit P[facility] Breast [facility] [address] [facility] 2nd [place] [address] Giana Mays MD [address] [facility] [address] Joaquina Guzman [facility] [address] [place] [address] documented as of this encounter Visit Diagnoses [...] documented as of this encounter Care Teams Telegraphic Typewriter Operator Relationship Specialty Start Date End Date Joyce Shaw, TERESA [address] [place], [place] [id number] PCP - General 09/11/23 documented as of this encounter
--- OUTSIDE RECORDS SUMMARY | 2024-01-11 19:07 | XMS_ITS | Encounter Summary ---
Author Organization [facility] Address [address] [place] [place] [id number] Care Team Providers Care Wool Buyer Name Role Phone Joyce Shaw TERESA Primary Care Provider [phone] Encounter Details Date Type Department Care Team (Latest Contact Info) Description 09/11/2023 Travel 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 Tobacco Use Types Packs/Day Years Used Date Smoking Tobacco: Some Days Cigarettes 2 0.2 Started: 05/2023 Smokeless Tobacco: Never Alcohol Use Standard Drinks/Week Comments Not Currently 0 (1 standard drink = 0.6 oz pur e alcohol) PHQ-2 Answer Date Recorded Patient Health Questionnaire-2 Score 2 09/11/2023 Comments No Sex and Gender Information Value Date Recorded Sex Assigned at Not on file Legal Sex Female 7:54 PM EDT Gender Identity Not on file Sexual Orientation Not on file documented as of this encounter Plan of Treatment Upcoming Encounters Date Type Department Care Team (Late st Contact Info) Description 01/12/2024 9:30 AM EST Office Visit [facility] [address] [place] [address] Sean Rod MD [address] [place] [address] 01/16/2024 9:30 AM EST Office Visit [facility] Breast Care Center [address] [facility], 2nd [place] [address] Giana Mays MD [address] [facility] Joaquina Guzman [facility] 134 [place] [address] 03/05/2024 8:00 AM EST Appointment PAV [facility] [address] [facility] 800 [place] [address] 03/05/2024 9:00 AM EST Appointment PAV [facility] 234 [facility] 800 [place] [address] 03/05/2024 10:00 AM EST Office Visit PAV [facility] [address] [facility], 2nd [place] [address] Giana Mays MD [address] [facility] Joaquina Guzman [facility] 134 [place] [address] documented as of this encounter Visit Diagnoses Not on filedocumented in this encounter Additional Health Concerns Assessment Noted Time A fall risk assessment has been complete d for the patient 09/11/2023 1:44 PM EDT documented as of this encounter Care Teams Wool Buyer Relationship Specialty Start Date End Date Joyce Shaw APRN [address] [place] [address] PCP - General 09/11/23 documented as of this encounter
--- OUTSIDE RECORDS SUMMARY | 2024-01-11 19:07 | XMS_ITS | Encounter Summary ---
Author Organization [facility] Address [address] [id number] Care Team Providers Care Investigator Welfare Name Role Phone Joyce Shaw APRN Primary Care Provider [phone] Reason for Referral * Consultation (Routine) - Closed Specialty Diagnoses / Procedures Referred By Mikayla t Referred To Contact Rheumatology Diagnoses Mastitis [facility] Breast Care [place] [id number] [facility] 2nd [place] [address] Phone: tel: fax: Referral ID Status Reason Start Date Expiration Date V isits Requested Visits Authorized [id number] Closed Specialty Services Required 09/11/2023 03/12/2025 1 1 Scheduling Instructions Recurrent mastitis/ abscess Reason for Visit * Reason Comments Consult Encounter Details Date Type Department Care Team ([facility] st Contact Info) Description 09/11/2023 1:20 PM EDT Office Visit [facility] Breast Care [place] [address] [facility], 2nd [place] [address] Kylee Price APRN [address] [facility] [address] [place] [address] 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); Mastitis 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 Tobacco Use Types Packs/Day Years [...] Sign Reading Time Taken Comments Blood Pressure 135/87 09/11/2023 1:26 PM EDT Pulse 54 09/11/2023 1:26 PM EDT Temperature 36.7 ??C (98.1 ??F) 09/11/2023 1:26 PM ED T Respiratory Rate 16 09/11/2023 1:26 PM EDT Oxygen Saturation - - Inhaled Oxygen Concentration - - Weight 137 kg (300 lb 14.9 oz) 09/11/2023 1:26 P M EDT Height 167.6 cm (5' 6 ) 09/11/2023 1:26 PM EDT Body Mass Index 48.57 09/11/2023 1:26 PM EDT documented in this encounter Miscellaneous Notes * Progress Notes - Kylee Price RN - 09/11/2023 1:20 PM EDT Images from the original note were not included. Subjective DOS: 09/11/2023 CC: Patient is seen in consultation from Joyce Shaw APRN for recurrent breast abscesses/mastitis . Patient is a 32 y.o. female presenting in consultation due to diagnosis of small and multiple recurrent abscesses in bilateral breasts. She is status post multiple lumpectomies in order to clear of her recurrent infection and pain. Patient had 8 lumpectomies which include 5 in her left breast and 3in her right breast. She recently had lumpectomy in the right breast and currently still packing the open area which has been draining. Patient states that the breasts remains swollen and painful. Each episode of mastitis causing her to run a fever and a few times she was hospitalized in the hospital for IV antibiotics. Patient has been recently seen in emergency room last Monday [facility] and was advised to present to the breast center to discuss potential bilateral mastectomies or other potential options for treatment. Patient states that her local surgeon and advised her for nipple and areola removal at the last visit due to her diagnosis of SMOLD. Patient would like to consider bilateral mastectomies to regain her quality of life. Patient states that she also has a family history of her father and her brother having multiple recurrent abscesses. She is wondering if that could be a familial trait. She has never been tested for autoimmune or genetic diseases. TREATMENT HISTORY: -DIAGNOSIS: recurrent mastitis/abscess, -TREATMENT: Multiple lumpectomies since April 2022: Right breast x 3 most recent 07/2023 and Left breast x [address] Chcako at [facility]. 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 No Travel History Travel since 08/12/23 No documented travel since 08/12/23 Relevant Domestic Travel History: N/A Immunizations Reviewed VACCINE/DOSE Flu Tetanus Pneumovax Shingles Allergies Amoxicillin, Amoxicillin-pot clavulanate, Bee venom, Hydrocodone-acetaminophen, Silver, and Wasp venom protein Medications Current Outpatient Medications Medication Sig Dispense Refill cariprazine (Vraylar) 3 MG capsule 1 capsule (3 mg). hydroCHLOROthiazide (HYDRODiuril) 12.5 MG tablet Take 1 tablet (12.5 mg) by mouth 1 (one) time eachday. ketorolac (Toradol) 10 MG tablet TAKE 1 TABLET BY MOUTH EVERY 8 HOURS FOR A MAXIMUM TOTAL DURATION OF 5 DAYS lamoTRIgine (LaMICtal) 100 MG tablet Take 1 tablet (100 mg) by mouth 1 (one) time each day. Lancets (Yeapoo Plus Hdksll63A) [facility] use to test twice hameed metFORMIN (Glucophage) 1000 MG tablet Take 1 tablet (1,000 mg) by mouth 2 (two) times a day. ondansetron (Zofran) 4 MG tablet 1 tablet (4 mg). oxyCODONE-acetaminophen (Percocet) 5-325 MG tablet 1 tablet. Ozempic, 0.25 or 0.5 MG/DOSE, 2 MG/3ML solution pen-injector INJECT 0.5 MG WEEKLY SUBCUTANEOUSLY FOR DIABETES prazosin (Minipress) 2 MG capsule doxycycline (Vibramycin) 100 MG capsule Take 1 capsule (100 mg) by mouth 2 (two) times a day for 21days. Take with at least 8 ounces (large glass) of water, do not lie down for 30 minutes after 42 capsule 0 predniSONE (Deltasone) 20 MG tablet Take 1 tablet (20 mg) by mouth 3 (three) times a day for 5 days, THEN 1 tablet (20 mg) 2 (two) times a day for 5 days, THEN 1 tablet (20 mg) 1 (one) time each day for 5 days, THEN 0.5 tablets (10 mg) 1 (one) time each day for 5 days. 33 tablet 0 No current facility-administered medications for this visit. Review of Systems Constitutional: Negative. Negative for fatigue and unexpected weight change. HENT: Negative. Eyes: Negative. Respiratory: Negative. Negative for cough and shortness of breath. Cardiovascular: Negative. Negative for chest pain. Gastrointestinal: Negative. Endocrine: Negative. Genitourinary: Negative. Musculoskeletal: Negative. Negative for arthralgias and back pain. Skin: Negative. Recurrent bilateral breast swelling, pain, nipple drainage Neurological: Negative. Hematological: Negative. Psychiatric/Behavioral: Negative. Objective PE: Visit Vitals BP 135/87 Pulse 54 Temp 36.7 ??C (98.1 ??F) (Oral) Resp 16 Ht 1.676 m (5' 6 ) Wt 137 kg (300 lb 14.9 oz) BMI 48.57 kg/m?? OB Status Hysterectomy Smoking Status Some Days BSA 2.53 m?? Physical Exam Vitals reviewed. Constitutional: Appearance: Normal appearance. HENT: Head: Normocephalic and atraumatic. Right Ear: External ear normal. Left Ear: External ear normal. Nose: Nose normal. Mouth/Throat: Mouth: Mucous membranes are moist. Pharynx: Oropharynx is clear. Eyes: Extraocular Movements: Extraocular movements intact. Conjunctiva/sclera: Conjunctivae normal. Pupils: Pupils are equal, round, and reactive to light. Cardiovascular: Rate and Rhythm: Normal rate. Pulmonary: Effort: Pulmonary effort is normal. Chest: Comments: Bilateral breasts are examined in the upright and supine positions. Grade 2 ptosis bilaterally. No skin or contour changes. No masses palpated. Nipples everted bilaterally. No nipple discharge. Bilateral breast deformities due to previous surgeries. Right breast swollen and tender. Serosanguineous discharge from the open wound. Abdominal: General: Abdomen is flat. Musculoskeletal: General: Normal range of motion. Cervical back: Normal range of motion and neck supple. Lymphadenopathy: Comments: Bilateral cervical, supraclavicular, and axillary LN basins are without lymphadenopathy Skin: General: Skin is warm and dry. Neurological: General: No focal deficit present. Mental Status: She is alert and oriented to person, place, and time. Psychiatric: Mood and Affect: Mood normal. Behavior: Behavior normal. Thought Content: Thought content normal. Judgment: Judgment normal. Radiology (reviewed by ): OSH imaging reviewed 07/21/23: BILATERAL DIAGNOSTIC MAMMOGRAM/ Right breast ultrasound: BI-RADS 2. NO MAMMOGRAPHIC OR SONOGRAPHIC EVIDENCE OF MALIGNANCY. BREAST MRI MAY BE DESIRE IF CLINICALLY RECOMMENDED Pathology (reviewed by ): [facility] pathology: 07/2023: Right lumpectomy: Benign breast parenchyma with [...] Assessment/Plan Patient is a 32 y.o. female presenting in consultation due to diagnosis of small and multiple recurrent abscesses in bilateral breasts. She is status post multiple lumpectomies in order to clear of her recurrent infection and pain.. She was advised at her last visit for nipple and areola removal per her surgeon in [facility]. Patient would like to discuss possibility of bilateral mastectomies due to inability to tolerate anymore infections which produced a lot of discomfort and interruptions in her every day life. Since April of 2022 patient had 8 lumpectomy is and multiple hospital admissions due to recurrent mastitis and abscesses. She is feeling pain in her bilateral breast on a daily basis. Patient states that she works and this has been interfering with her work as well. Currently patient continues to pack her right breast open wound. Area was repacked in the clinic today. Her breast appears to be swollen and painful. Prescription for doxycycline times 21 days and prednisone were given in the clinic today. I discussed with the patient all arrange for her to return in 4 weeks with repeat bilateral diagnostic mammogram and right breast ultrasound and surgical oncology consultation to discuss potential bilateral prophylactic mastectomies. Advised patient to continue packing her open wound due to all increased amount of serosanguineous drainage from the area. Packing supplies were provided to the patient. Advised patient about tobacco cessation. Patient states that she will stop smoking since she does not smoke but maybe 2 cigarettes a day. Also arrange for the patient to see workshop manager to workup further for potential autoimmune disease due to her personal diagnosis of eosinophilic esophagitis and familial history of multiple abscesses in her dad and her brother. Her chronic comorbid conditions that impact our treatment planning include: Obesity - control uncertain, with a last BMI of: Body mass index is 48.57 kg/m??. Tobacco abuse - smokes 2 cigarettes/ day Depression 60 minutes was spent on this encounter; including preparing to see the patient, which involved review/interpretation of diagnostics and reports; obtaining and/or reviewing separately obtained history; performing appropriate physical exam; ordering/scheduling medications, tests or procedures; communicating findings and counseling/educating the patient, family and/or caregiver; documentation in EMR; and care coordination. documented in this encounter Plan of Treatment Upcoming Encounters Date Type Department Care Team (Late st Contact Info) Description 01/12/2024 9:30 AM EST Office Visit [facility] Medicine Specialties [address] [facility], 2nd [place] [address] Sean Rod MD [address] [place] [address] 01/16/2024 9:30 AM EST Office Visit [facility] 7[address] [facility], [address]nd [place] [address] Giana Mays MD 800 [facility] [address] [address] 03/05/2024 8:00 AM EST Appointment PAV [facility] 234 [facility] 800 [place] [address] 03/05/2024 9:00 AM EST Appointment PAV [facility] 234 [facility] 800 [place] [address] 03/05/2024 10:00 AM EST Office Visit [facility] [address] [facility], [address] [place] [address] Giana Mays MD 800 [facility] Megan [address] [address] Scheduled Referrals Name Type Priority Associated Diagnoses Order Schedule Ambulatory referral to Rheumatology Outpatient Referral Routine Mastitis Expected: 10/12/2023, Expires: 03/13/2025 documented as of this encounter Results * [...] on 10/10/2023 12:48 PM us Kylee Price SKI PATROL IMG BI PROCEDURES Final Resu lt * Mammography Breast Diagnostic Tomosynthesis Bilateral (10/10/2023 11:35 AM EDT) Anatomical Region Laterality Modality Breast Bilateral Mammography Impressions 10/10/2023 12:48 PM EDT Right Breast [...] signing this report, I, the attending physician, nazario I have personally reviewed the images/data for the aboveexamination(s) and agree with the final edited report. 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
--- OUTSIDE RECORDS SUMMARY | 2024-01-11 19:07 | XMS_ITS | Encounter Summary ---
Author Organization [facility] Address [address] [place] [address] Care Team Providers Care [employer] Planners Name Role Phone Joyce Shaw TERESA Primary Care Provider + [phone] Encounter Details Date Type Department Care Team (Latest Contact Info) Description 09/17/2023 Travel 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 Tobacco Use Types Packs/Day [...] Recorded Patient Health Questionnaire-2 Score 2 09/11/2023 Hunger Vital Sign Answer Date Recorded Within [...] in a longterm (including now)? No 09/18/2023 CAGE ASSESSMENT Answer Date Recorded Cage unable [...] drink first t maurilio in the morning (EYE-SILO ERECTOR) to steady your nerves or to [...] Description 01/12/2024 9:30 AM EST Office Visit [facility] [address], [address] [place] [address] Sean Rod MD [address] [place] [address] 01/16/2024 9:30 AM EST Office Visit [facility] Breast [facility] 7[address] [facility], 2nd [place] [address] Giana Mays MD 800 [facility] Megan [facility] 134 [place] [address] 03/05/2024 8:00 AM EST Appointment PAV [facility] Breast [facility] 234 [facility] 800 [place] [address] 03/05/2024 9:00 AM EST Appointment PAV [facility] 234 [facility] 800 [place] [address] 03/05/2024 10:00 AM EST Office Visit [facility] Breast [address], [address] [place] [address] Giana Mays MD 800 [facility] Megan [address] [address] documented as of this encounter Visit Diagnoses Not on filedocumented in this encounter Additional Health Concerns Assessment Noted Time A fall risk assessment has been complete d for the patient 09/11/2023 1:44 PM EDT A Body Mass Index follow-up plan has been documented for the patient 09/19/2023 9:28 AM EDT documented as of this encounter Care Teams [employer] Planners Relationship Specialty Start Date End Date Joyce Shaw APRN [address] [place] [address] PCP - General 09/11/23 documented as of this encounter
--- OUTSIDE RECORDS SUMMARY | 2024-01-11 19:07 | XMS_ITS | Encounter Summary ---
Author Organization [facility] Address [address] [place] [address] Care Team Providers Care Provider Relations Consultant Name Role Phone Joyce Shaw TERESA Primary Care Provider + [phone] Encounter Details Date Type Department Care Team (Latest Contact Info) Description 10/06/2023 Travel 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 Tobacco Use Types Packs/Day [...] Answer Date Recorded Patient Health Questionnaire-2 Score 0 10/06/2023 Hunger Vital Sign Answer Date Recorded Within [...] drink first t maurilio in the morning (EYE-BINDING CEMENTER FRENCH CORD) to steady your nerves or to get [...] Visit [facility] [address] [place] [address] Sean Rod MD [address] [place] [address] 01/16/2024 9:30 AM EST Office Visit [facility] Breast [facility] 7[address] [facility], 2nd [place] [address] Giana Mays MD 800 [facility] Megan [address] [address] 03/05/2024 8:00 AM EST Appointment PAV [facility] [address] [address] 03/05/2024 9:00 AM EST Appointment PAV [facility] 234 [facility] 800 [place] [address] 03/05/2024 10:00 AM EST Office Visit [facility] [address] [facility], [address]nd [place] [address] Giana Mays MD 800 [facility] Megan [address] [address] documented as of this encounter Visit Diagnoses [...] documented as of this encounter Care Teams Provider Relations Consultant Relationship Specialty Start Date End Date Joyce Shaw APRN [address] [place] [address] PCP - General 09/11/23 documented as of this encounter
--- OUTSIDE RECORDS SUMMARY | 2024-01-11 19:07 | XMS_ITS | Encounter Summary ---
Author Organization Healthcare Address [address] [place] [address] Care Team Providers Care River Guide Name Role Phone Joyce Shaw TERESA Primary Care Provider [phone] Reason for Visit * Reason Comments Follow-up Encounter Details Date Type Department Care Team (Late st Contact Info) Description 10/06/2023 10:50 AM EDT Office Visit [facility] [address] [place] [address] Sean Rod MD [address] [place] [address] Mastitis (Primary Dx); Tobacco use disorder; Breast abscess; Enlarged lymph nodes in armpit; Eosinophilic esophagitis; Class III obesity with body mass index (BMI) of 40.0 or higher (CMS/HCC) 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 Tobacco Use Types Packs/Day Years Used Date Smoking Tobacco: Some Days Cigarettes 2 0.2 Started: 05/2023 Smokeless Tobacco: Never Tobacco Cessation:Ready to Q uit: Not Asked; Counseling Given: Not Answered Alcohol Use Standard Drinks/Week [...] place to sleep or slept in a fpc (including now)? 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) to steady your nerves or to get [...] Sign Reading Time Taken Comments Blood Pressure 113/71 10/06/2023 10:11 AM EDT Pulse 94 10/06/2023 10:11 AM EDT Temperature 36.6 ??C (97.9 ??F) 10/06/2023 10:11 AM E DT Respiratory Rate 16 10/06/2023 10:11 AM EDT Oxygen Saturation 95% 10/06/2023 10:11 AM EDT Inhaled Oxygen Concentration - - Weight 134 kg (295 lb 6.7 oz) 10/06/2023 10:11 A M EDT Height 167.6 cm (5' 6 ) 10/06/2023 10:11 AM EDT Body Mass Index 47.68 10/06/2023 10:11 AM EDT documented in this encounter Miscellaneous Notes * Progress Notes - Sean Rod MD - 10/06/2023 10:50 AM EDT Images from the original note were not included. Subjective Ivon Dowd is a 32 y.o. 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 She is status post multiple lumpectomies Since April of 2022 patient had 8 lumpectomy is and multiple hospital admissions due to recurrent mastitis and abscesses. 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 She was on budesonide for EOE, was discontinued October 2022, her mastitis started apr 2022 She had hysterectomy at the age of 24 because she had several adhesions , she has hx of recurrent infections. We discussed that this could be infectious, possible autoimmune diseases to consider are sarcoidosis, Sjogren's if the pathology were to show granulomatous inflammation, also IgG4 and ANCA vasculitismay involve the breast tissue. Lack biopsy make it difficult to diagnose. We will try to obtain blood tests to evaluate, however pathology would be gold standard Discussed that idiopathic granulomatous mastitis can be treated with methotrexate however biopsy iscrucial to establish diagnosis She says that is small diagnosis was not based on biopsy to her knowledge, Today: Workup unremarkable except for low vitamin D2 normal 125, Biopsy shows squamous metaplasia of the lactiferous duct Discussed with Dr. Mays Patient is very sad and crying today, she is in so much pain, her R- breast is hardening again withminimal clear bloody discharge She hasn't smoked since September 14, and her symptoms are coming back She has appt with Dr Mays at [facility] on october 09. 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 Family hx Family History Problem Relation Name Age of Onset Colon cancer Father 60 - 69 Throat cancer Father 60 - 69 Esophageal cancer Father 60 - 69 Breast cancer Paternal Grandmother 50 - 59 Lung cancer Paternal Grandmother 60 - 69 Colon cancer Paternal Grandfather 60 - 69 SLE/RA/psoriasis/SSC/Sjogren's/myositis Social history: cigarette smoking, EtOH abuse , illicit substance use Allergies Amoxicillin, Amoxicillin-pot clavulanate, Bee venom, Hydrocodone- acetaminophen, Silver, and Wasp venom protein Review of Systems As hpi Objective Physical Exam Constitutional: Appearance: Normal appearance. HENT: Head: Normocephalic and atraumatic. Right Ear: External ear normal. Left Ear: External ear normal. Mouth/Throat: Mouth: Mucous membranes are moist. Comments: No oral ulcers Adequate oral hygiene Adequate salivary pool Eyes: Conjunctiva/sclera: Conjunctivae normal. Cardiovascular: Rate and Rhythm: Normal rate and regular rhythm. Pulmonary: Effort: Pulmonary effort is normal. Breath sounds: Normal breath sounds. Abdominal: General: Abdomen is flat. Palpations: Abdomen is soft. Musculoskeletal: General: Normal range of motion. Cervical back: Normal range of motion. Comments: Enlarged lymph node left axilla Skin: Findings: No rash. Neurological: General: No focal deficit present. Mental Status: She is alert. Psychiatric: Comments: Feeling sad, crying Labs/imaging: Autoimmune panel Assessment/Plan Ivon Dowd is a 32 y.o. 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 Diagnoses and all orders for this visit: Mastitis Tobacco use disorder Breast abscess Enlarged lymph nodes in armpit Eosinophilic esophagitis Class III obesity with body mass index (BMI) of 40.0 or higher (CMS/[facility]) I spent 40 minutes in this patient encounter which includes reviewing records from the referring provider, gathering history, reviewing images, labs, evaluation, counseling and documentation. The patient was counseled about diagnostic results, instruction for management, risk factors reduction, prognosis, compliance with visits and treatment, risks and benefits of treatments options. Prior notes (by external physicians) and results were reviewed by me with independent interpretation of labs and imaging. My note will be sent to PCP and other consulting physicians. Note to patient: The 21st Century Cures Act makes medical notes like these available to patients inthe interest of transparency. However, be advised this is a medical document. It is intended as peer to peer communication. It is written in medical language and may contain abbreviations or verbiagethat are unfamiliar. It may appear blunt or direct. Medical documents are intended to carry relevant information, facts as evident, and the clinical opinion of the medical professional. Parts of this note were dictated using [employer] Direct voice recognition software. As a result, errors may occur. When identified, these manager data center errors are corrected, but while every attempt is made to prevent/correct these, errors may still exist. Sean Rod MD. Associate Dentist Division of Rheumatology Department of Internal Medicine [facility] documented in this encounter Plan of Treatment Upcoming Encounters Date Type Department Care Team (Late st Contact Info) Description 01/12/2024 9:30 AM EST Office Visit [facility] Medicine Specialties [address] [place] [address] Sean Rod MD [address] [place] [address] 01/16/2024 9:30 AM EST Office Visit [facility] [address] [facility]nd [place] [address] Giana Mays MD [address] [facility] [address] [place] [address] 03/05/2024 8:00 AM EST Appointment [facility] [address] [facility] [address] [place] [address] 03/05/2024 9:00 AM EST Appointment [facility] [address] [facility] [address] [place] [address] 03/05/2024 10:00 AM EST Office Visit [facility] [address] [facility] [place] [address] Giana Mays MD [address] [facility] [address] [place] [address] documented as of this encounter Visit Diagnoses Diagnosis Mastitis- Primary Inflammatory disease of breast Tobacco use disorder Breast abscess Inflammatory disease of breast Enlarged lymph nodes in armpit Enlargement of lymph nodes Eosinophilic esophagitis Class III obesity with body mass index (BMI) of 40.0 or higher (CMS/HCC) documented in this encounter Additional Health Concerns Assessment Noted Time PHQ-9 Depression Total Score: 13 024 8:31 AM EDT A fall risk assessment has been complete d for the patient 10/06/2023 10:13 AM EDT A Body Mass Index follow-up plan has been documented for the patient 10/06/2023 11:30 AM EDT documented as of this encounter Care Teams River Guide Relationship Specialty Start Date End Date Joyce Shaw APRN [address] [place] [address] PCP - General 09/11/23 documented as of this encounter
--- OUTSIDE RECORDS SUMMARY | 2024-01-11 19:07 | XMS_ITS | Encounter Summary ---
Author Organization [facility] Address [address] [place] [address] Care Team Providers Care Support Team Assoc Name Role Phone Joyce Shaw TERESA Primary Care Provider [phone] Reason for Visit * Reason Comments Consult Dr. Price breast onc ology clinicMastitisInfections frequently * Consultation (Routine) - Closed Specialty Diagnoses / Procedures Referred By Mikayla valderrama Referred To Contact Rheumatology Diagnoses Mastitis [facility] [address] [facility] [place] [address] Phone: tel: fax: Referral ID Status Reason Start Date Expiration Date V isits Requested Visits Authorized [id number] Closed Specialty Services Required 09/11/2023 03/12/2025 1 1 Encounter Details Date Type Department Care Team ([facility] st Contact Info) Description 09/22/2023 8:50 AM EDT [facility] Medicine Specialties [address], [address] [place] [address] Sean Rod MD [address] [place] [address] Tobacco use disorder (Primary Dx); Mastitis; Breast abscess; Class III obesity with body mass index (BMI) of 40.0 or higher (CMS/HCC); Eosinophilic esophagitis; Enlarged lymph nodes in armpit 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 Tobacco Use Types Packs/Day Years [...] Answer Date Recorded Patient Health Questionnaire-2 Score 6 09/22/2023 Hunger Vital Sign Answer Date Recorded Within [...] drink first t maurilio in the morning (EYE-DOMESTIC CLEANER) to steady your nerves or to get rid of a hangover? 0 09/16/2023 CAGE Questionnaire Score 0 024 Utilities Answer Date Recorded In the past 12 months has e Factual, gas, oil, or water [employer] threatened to shut off services in your home? No 09/18/2023 Comments No Sex and Gender Information Value Date Recorded Sex Assigned at Not on file Legal Sex Female 7:54 PM EDT Gender Identity Not on file Sexual Orientation Not on file documented as of this encounter Last Filed Vital Signs Vital Sign Reading Time Taken Comments Blood Pressure 117/83 09/22/2023 8:29 AM EDT Pulse 102 09/22/2023 8:29 AM EDT Temperature 36.8 ??C (98.2 ??F) 09/22/2023 8:29 AM ED T Respiratory Rate 16 09/22/2023 8:29 AM EDT Oxygen Saturation 96% 09/22/2023 8:29 AM EDT Inhaled Oxygen Concentration - - Weight 135 kg (298 lb 11.6 oz) 09/22/2023 8:29 A M EDT Height 167.6 cm (5' 6 ) 09/22/2023 8:29 AM EDT Body Mass Index 48.22 09/22/2023 8:29 AM EDT documented in this encounter Miscellaneous Notes * Progress Notes - Sean Rod MD - 09/22/2023 8:50 AM EDT Subjective Requesting provider Not known Ivon Erwin is a 32 y.o. 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 She is status post multiple lumpectomies Since April of 2022 patient had 8 lumpectomy is and multiple hospital admissions due to recurrent mastitis and abscesses. 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 She was on budesonide for EOE, was discontinued October 2022, her mastitis started apr 2022 She hasn't been able to get path reports from Dr Navjot Brannon in [place] [facility] She had hysterectomy at the age of 24 because she had several adhesions , she has hx of recurrent infections, Rheum ROS: Positive in bold only Joint pain Joint stiffness Joint swelling Back pain: Neck/ Low back / sacroiliac Heel pain Fatigue Hair loss Pinkeye Dry eyes Dry mouth Oral ulcers Genital ulcers Epistaxis Nasal crusting Nasal congestion raynauds Skin rash Psoriasis Muscle pain Muscle weakness Pleurisy/pain with breathing Shortness of breath Diarrhea/bloody diarrhea Hematemesis Numbness tingling loss of function Mi/stroke/DVT female only: she has two healthy children, 2 Miscarriage ( 12 and 17 weeks), nopreeclampsia Rheum Medication Hx She was on prednisone through her PCP for 4 days , 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 [...] deficit present. Mental Status: She is alert. Labs/imaging: Autoimmune panel Review Assessment/Plan Ivon Erwin is a 32 y.o. female here for recurrent mastitis to evaluate for possible underlying autoimmune disease Her history is unremarkable except for miscarrige *2, EOE and recurrent mastitis. We discussed that this could be infectious, [...] not based on biopsy to her knowledge, High-risk medication monitoring Labs: CBCDR,BMP,LFT, TB Hepatitis To hold medication in setting of severe infection, fever Diagnoses and all orders for this visit: Tobacco use disorder Mastitis - Ambulatory referral to Rheumatology - Immunoglobulin G Subclasses (1, 2, 3, 4) (SO); Future - IG Profile; Future - ANCA Vasculitis profile; Future - Angiotensin converting enzyme; Future - Interleukin 2 Receptor, Soluble, Serum (SO); Future - Chitotriosidase Assay (YANNI); Future - Vitamin D 25 Hydroxy; Future - Vitamin D 1,25 dihydroxy; Future - ANTI NUCLEAR AB; Future - ENAI; Future - ENAII; Future - Double-Stranded DNA (dsDNA) Antibody, IgG by IFA; Future - C4 Complement; Future - C3 Complement; Future - Complement, total; Future Breast abscess Class III obesity with body mass index (BMI) of 40.0 or higher (CMS/HCC) Eosinophilic esophagitis Enlarged lymph nodes in armpit I spent 60 minutes in this patient encounter which includes [...] other consulting physicians. Note to patient: The Century Cures Act makes medical notes like [...] Parts of this note were dictated using Koality voice recognition software. As a result, errors may occur. When identified, these global position system technician errors are corrected, but while every attempt is made to prevent/correct these, errors may still exist. Sean Rod MD. Battery Assembler [employer] Division of Rheumatology Department of Internal Medicine [facility] documented in this encounter Plan of Treatment Upcoming Encounters Date Type Department Care Team (Late st Contact Info) Description 01/12/2024 9:30 AM EST Office Visit [facility] Medicine Specialties [address] [place] [address] Sean Rod MD [address] [place] [address] 01/16/2024 9:30 AM EST Office Visit [facility] [address] [facility] [place] [address] Giana Mays MD [address] [facility] [address] Megan [facility] [address] [place] [address] 03/05/2024 8:00 AM EST Appointment [facility] [address]man [facility] [address] [place] [address] 03/05/2024 9:00 AM EST Appointment [facility] [address] Milton[address]on [facility] [address] [place] [address] 03/05/2024 10:00 AM EST Office Visit [facility] [address] [place] [address] Giana Mays MD [address] [place] [address] documented as of this encounter Results * (ABNORMAL) Complement, total (09/22/2023 10:08 AM EDT) Pathologist [facility] Complement Activity, Total Turbidimetric >95.0(H) 38.7 - 89.9 U/mL 09/24/2023 9:00 AM EDT [employer] ([facility]) Blood Venous blood specimen / Unknown Venipuncture / Unknown 09/22/2023 10:08 AM EDT 09/22/2023 10:11 AM EDT Narrative [employer] ([facility]O) - 09/24/2023 9:00 AM EDT High activity in total complement functional assay (CH50) indicates acute-phase response to inflammation or infection. Repeat testing after inflammation has resolved is recommended. REFERENCE INTERVAL: Complement Activity Total, (CH50) ? 38.6 U/mL or less ..........Low ? 38.7-89.9 U/mL .............Normal ? 90.0 U/mL or greater .......High Performed By: [facility] [address] [place] [address] Environmental Marketing Representative: Aden Alvares MD, PhD CLIA Number: [id number] us Sean Rod MD LAB BLOOD ORDERABLES Final Re sult [facility]) [address] [place] [address] * C3 Complement (09/22/2023 10:08 AM EDT) Pathologist [facility] C3 Complement 151 84 - 166 mg/dL 09/22/2023 12:03 PM EDT [facility] Blood Venous blood specimen / Unknown Venipuncture / Unknown 09/22/2023 10:08 AM EDT 09/22/2023 10:11 AM EDT us Sean Rod MD LAB BLOOD ORDERABLES Final Re sult Performing Organization Address [facility] de Phone Number HEALTHCARE LAB [address] [place] [address] * C4 Complement (09/22/2023 10:08 AM EDT) Pathologist [facility] C4 Complement 24 13 - 36 mg/dL 09/22/2023 12:03 PM EDT [facility] Blood Venous blood specimen / Unknown Venipuncture / Unknown 09/22/2023 10:08 AM EDT 09/22/2023 10:11 AM EDT us Sean Rod MD LAB BLOOD ORDERABLES Final Re sult Performing Organization Address [facility] de Phone Number [facility] [address] [place] [address] * Double-Stranded DNA (dsDNA) Antibody, IgG by IFA (09/22/2023 10:08 AM EDT) Pathologist [facility] Double-Strande d DNA (dsDNA) Ab IgG IFA <1:10 <1:10 09/25/2023 9:55 AM EDT [facility] ([facility]) Blood Venous blood specimen / Unknown Venipuncture / Unknown 09/22/2023 10:08 AM EDT 09/22/2023 10:11 AM EDT Narrative [facility] ([facility]) - 09/25/2023 9:55 AM EDT INTERPRETIVE INFORMATION: Double-Stranded DNA (dsDNA) Antibody, IgG by IFA (using Crithidia luciliae) Positivity for anti-double stranded DNA (anti-dsDNA) IgG antibody is a diagnostic criterion of systemic lupus erythematosus (SLE). The presence of the anti-dsDNA IgG antibody is identified by IFA titer (Crithidia luciliae indirect fluorescent test [NELLA]). NELLA is highly specific for SLE with a sensitivity of 50-60 percent. Some patients with early or inactive SLE may be positive for anti-dsDNA IgG by RODNEY but negative by NELLA. If the NELLA result is negative but the patient has a positive RODNEY and clinical suspicion remains, consider antinuclear antibody (CHELA) testing by IFA. Additional information and recommendations for testing may be found at [email or web address]. Performed By: [facility] [address] [place] [address] Environmental Marketing Representative: Aden Alvares MD, PhD CLIA Number: [id number] us Sean Rod MD LAB BLOOD ORDERABLES Final Re sult [facility] ([place] [place] [facility]) [address] [place] [address] * ENAII (09/22/2023 10:08 AM EDT) SSA-52 (RO52) (BRANDY) Antibody, IgG 4 0 - 40 AU/mL 09/24/2023 11:27 PM EDT [facility] ([place]) SSA-60 (RO60) (BRANDY) Antibody, IgG 1 0 - 40 AU/mL 09/24/2023 11:27 PM EDT [facility] ([place]) SSB (LA) (BRANDY) Antibody, IgG 4 0 - 40 AU/mL 09/24/2023 11:27 PM EDT [facility] ([place]) Blood Venous blood specimen / Unknown Venipuncture / Unknown 09/22/2023 10:08 AM EDT 09/22/2023 10:11 AM EDT Narrative [facility] ([place]) - 09/24/2023 11:27 PM EDT INTERPRETIVE INFORMATION: SSA-52 (Ro52) (BRANDY) Antibody, IgG ??29 AU/mL or Less ............. Negative ??30 - 40 AU/mL ................ Equivocal ??41 AU/mL or Greater .......... Positive SSA-52 (Ro52) and/or SSA-60 (Ro60) antibodies are associated with a diagnosis of Sjogren syndrome, systemic lupus erythematosus (SLE), and systemic sclerosis. SSA-52 antibody overlaps significantly with the major SSc-related antibodies. SSA-52 (Ro52) antibody occurs frequently in patients with inflammatory myopathies, often in the presence of interstitial lung disease. REFERENCE INTERVAL: SSA-60 (Ro60) (BRANDY) Antibody, IgG ??29 AU/mL or Less ............. Negative ??30 - 40 AU/mL ................ Equivocal ??41 AU/mL or Greater .......... Positive INTERPRETIVE INFORMATION: SSB (La) (BRANDY) Ab, IgG ??29 AU/mL or Less ............. Negative ??30 - 40 AU/mL ................ Equivocal ??41 AU/mL or Greater .......... Positive SSB (La) antibody is seen in 50-60% of Sjogren syndrome cases and is specific if it is the only BRANDY antibody present. 15-25% of patients with systemic lupus erythematosus (SLE) and 5-10% of patients with progressive systemic sclerosis (PSS) also have this antibody. Performed By: [facility] [address] [place] [address] Environmental Marketing Representative: Aden Alvares MD, PhD CLIA Number: [id number] us Sean Rod MD LAB BLOOD ORDERABLES Final Re sult [facility]) [address] [phone] * ENAI (09/22/2023 10:08 AM EDT) Abad/BOILER PLANT WORKER (BRANDY) Ab, IgG 2 0 - 19 Units 09/24/2023 10:23 PM EDT [facility] [employer] ([place]) Blood Venous blood specimen / Unknown Venipuncture / Unknown 09/22/2023 10:08 AM EDT 09/22/2023 10:11 AM EDT Narrative [facility] [employer] [employer]) - 09/24/2023 10:23 PM EDT INTERPRETIVE INFORMATION: Abad/BOILER PLANT WORKER (BRANDY) Antibody, IgG ??19 Units or Less ............. Negative ??20 to 39 Units ............... Weak Positive ??40 to 80 Units ............... Moderate Positive ??81 Units or greater .......... Strong Positive Abad/BOILER PLANT WORKER antibodies are frequently seen in patients with mixed connective tissue disease (MCTD) and are also associated with other systemic autoimmune rheumatic diseases (SARDs) such as systemic lupus erythematosus (SLE), systemic sclerosis, and myositis. Antibodies targeting the Abad/BOILER PLANT WORKER antigenic complex also recognize Abad antigens, therefore, the Abad antibody response must be considered when interpreting these results. Performed By: [facility] [address] [place] [address] Environmental Marketing Representative: Aden Alvares MD, PhD CLIA Number: [id number] Sean Rod MD LAB BLOOD ORDERABLES Final Re sult [facility] [employer]) [address] [place] [address] * ANTI NUCLEAR AB (09/22/2023 10:08 AM EDT) CHELA INTERPRETIVE COMMENT See Note 09/25/2023 6:12 AM EDT [facility]) Anti Nuc Ab Screen <1:80 <1:80 09/25/2023 6:12 AM EDT [facility] [employer]) Blood Venous blood specimen / Unknown Venipuncture / Unknown 09/22/2023 10:08 AM EDT 09/22/2023 10:11 AM EDT [facility] [employer]) - 09/25/2023 6:12 AM EDT Antinuclear antibodies by IFA negative for homogeneous, speckled, nucleolar, centromere, and nuclear dots patterns. Cytoplasmic antibodies by IFA negative for reticular/AMA, discrete/GW body-like, polar/golgi-like, rods and rings, and cytoplasmic speckled patterns. INTERPRETIVE INFORMATION: CHELA Interpretive Comment Presence of antinuclear antibodies (CHELA) is a hallmark feature of systemic autoimmune rheumatic diseases (SARD). However, CHELA lacks diagnostic specificity and is associated with a variety of diseases (cancers, autoimmune, infectious, and inflammatory conditions) ??and may also occur in healthy individuals in varying prevalence. The lack of diagnostic specificity requires confirmation of positive CHELA by more specific serologic tests. CHELA (nuclear reactivity) positive patterns reported include centromere, homogeneous, nuclear dots, nucleolar, or speckled. CHELA (cytoplasmic reactivity) positive patterns reported include reticular/AMA, discrete/GW body-like, polar/golgi-like, cytoplasmic speckled or rods and rings. All positive patterns are reported to endpoint titers (1:2560). Reported patterns may help guide differential diagnosis, although they may not be specific for individual antibodies or diseases. Mitotic staining patterns not reported. ??Negative results do not necessarily rule out SARD. Performed By: [facility] [address] [place] [address] Environmental Marketing Representative: Aden Alvares MD, PhD CLIA Number: [id number] Sean Rod MD LAB BLOOD ORDERABLES Final Re sult Performing Organization Address City/[facility] Co de Phone Number [facility] ([facility]) [address] [place] [address] * Vitamin D 1,25 dihydroxy (09/22/2023 10:08 AM EDT) [facility] VITAMIN D, 1, 25-DIHYDROXY 70.2 19.9 - 79.3 pg/mL 09/22/2023 5:14 PM EDT [facility] Blood Venous blood specimen / Unknown Venipuncture / Unknown 09/22/2023 10:08 AM EDT 09/22/2023 10:11 AM EDT Sean Rod MD LAB BLOOD ORDERABLES Final Re sult [facility] [address] [place] [address] * (ABNORMAL) Vitamin D 25 Hydroxy (09/22/2023 10:08 AM EDT) [facility] Vitamin D 25 Hydroxy 18.0(L) 20.0 - 80.0 ng/mL 09/22/2023 1:07 PM EDT [facility] Blood Venous blood specimen / Unknown Venipuncture / Unknown 09/22/2023 10:08 AM EDT 09/22/2023 10:11 AM EDT Narrative [facility] - 09/22/2023 1:07 PM EDT Testing performed on Cates Can Worker, standardized against NIST SRM 2972. When testing samples from patients whose predominant form of vitamin D is vitamin D2, such as patients receiving vitamin D2 supplementation, results that are subtherapeutic should be confirmed with another method, such as LC-MS/MS, before being used for patient management. Vitamin D, 25-Hydroxy reference range, age 18 years and up: Deficiency: ? <12 ng/mL Insufficiency: ? 12 to 19 ng/mL Sufficiency: ?20 to 80 ng/mL Possible toxicity: ?? >100 ng/mL us Sean Rod MD LAB BLOOD ORDERABLES Final Re sult [facility] [address] [place] [address] * Chitotriosidase Assay (YANNI) (09/22/2023 10:08 AM EDT) Pathologist [facility] Chitotriosidase (YANNI) 45 4 - 120 nmoles/h r/mL 09/30/2023 3:08 PM EDT [facility] ([place]) Mutation Analysis Not applicable 09/30/2023 3:08 PM EDT [facility] ([place] [place] [facility]) Interpretation Note 09/30/2023 3:08 PM EDT [facility] ([place] [place] [facility]) Comment:Please see Result Va lues and Monitoring History. Comments Note 09/30/2023 3:08 PM EDT [facility] ([place] [place] [facility]) Comment: The JUAN ALBERTO fluorometric enzyme assay uses tripeptide (hippuryl- his-colin) as substrate and o-phthaldialdehyde for fluorescent derivatization. The YANNI fluorometric enzyme assay uses 8-qosowjmslbdlpybwfg-jsth-D- triacetylchitotrioside as substrate. The TRAP colorimetric enzyme assay uses p-nitrophenyl phosphate as substrate. Director Note 09/30/2023 3:08 PM EDT [facility] ([facility]) Comment:Damir Cardenas M.D. , Ph.D Disclaimer Note 09/30/2023 3:08 PM EDT [facility] ([facility]) Comment: Testing Performed at [facility], [address] [place] [address] Damir Cardenas M.D., Ph.D., Environmental Marketing Representative . [facility] is a subsidiary of [employer], using the brand [facility]. This test was developed and its performance characteristics determined by [facility]. It has not been cleared or approved by the Food and Drug Administration. Ethnicity Comment 09/30/2023 3:08 PM EDT [facility] ([facility]) Comment:Not Provided Patient History Note 3:08 PM EDT [facility] ([facility]) Comment: Known/Suspected Gaucher Disease: Obligate or Possible Carrier of Gaucher Disease: Family History Note 09/30/2023 3:08 PM EDT [facility] ([facility]) Comment: Family History of Gaucher Disease: Family Members: Indication Note 09/30/2023 3:08 PM EDT [facility] ([facility]) Comment:Gaucher Disease cooper toring Blood Venous blood specimen / Unknown Venipuncture / Unknown 09/22/2023 10:08 AM EDT 09/22/2023 10:11 AM EDT Narrative [facility] ([facility]) - 09/30/2023 3:08 PM EDT Performed at: ??01 - [facility] [address] [place], [place] [phone] [employer] Principal: Damir Cardenas Formerly [facility], Phone: ??[phone] Sean Rod MD LAB REF LAB BLOOD AND FLUID O RD Final Result [facility] ([facility]) * Interleukin 2 Receptor, Soluble, Serum (SO) (09/22/2023 10:08 AM EDT) [facility] Interleukin 2 Receptor, Soluble, Serum 419.0 175.3 - 858.2 pg/mL 09/24/2023 4:27 PM EDT [facility] Blood Venous blood specimen / Unknown Venipuncture / Unknown 09/22/2023 10:08 AM EDT 09/22/2023 10:11 AM EDT Narrative [facility]) - 09/24/2023 4:27 PM EDT INTERPRETIVE INFORMATION: Cytokines Results are used to understand the pathophysiology of immune, infectious, or inflammatory disorders, or may be used for research purposes. This test was developed and its performance characteristics determined by [facility]. It has not been cleared or approved by the [place] Food and Drug Administration. This test was performed in a CLIA certified laboratory and is intended for clinical purposes. Performed By: [facility] [address] [place] [address] Environmental Marketing Representative: Aden Alvares MD, PhD CLIA Number: [id number] Sean Rod MD LAB REF LAB BLOOD AND FLUID O RD Final Result Performing Organization Address [facility] de Phone Number [place] [address] * Angiotensin converting enzyme (09/22/2023 10:08 AM EDT) [facility] ANGIOTENSIN CONVERTING ENZYME 37 16 - 85 U/L 09/23/2023 10:51 PM EDT [facility] Blood Venous blood specimen / Unknown Venipuncture / Unknown 09/22/2023 10:08 AM EDT 09/22/2023 10:11 AM EDT Narrative [facility] - 09/23/2023 10:51 PM EDT Performed By: [facility] [address] [place] [address] Environmental Marketing Representative: Aden Alvares MD, PhD CLIA Number: [id number] Sean Rod MD LAB BLOOD ORDERABLES Final Re sult Performing Organization Address City/[facility]/ZIP Co de Phone Number [facility] ([facility]) [address] [place] [address] * ANCA Vasculitis profile (09/22/2023 10:08 AM EDT) Myeloperoxidase (MPO) Ab, IgG 0 0 - 19 AU/mL 09/25/2023 6:02 AM EDT [facility] ([facility]) Serine Proteinase 3 (PR3) Ab, IgG 1 0 - 19 AU/mL 09/25/2023 6:02 AM EDT [facility] ([facility]) ANCA IFA Titer <1:20 <1:20 09/25/2023 6:02 AM EDT [facility] ([facility]) ANCA IFA Pattern None Detected None Detected 09/25/2023 6:02 AM EDT [facility] ([facility]) Blood Venous blood specimen / Unknown Venipuncture / Unknown 09/22/2023 10:08 AM EDT 09/22/2023 10:11 AM EDT Narrative [facility] ([facility]) - 09/25/2023 6:02 AM EDT INTERPRETIVE INFORMATION: Myeloperoxidase Abs, IgG ??19 AU/mL or Less ......... Negative ??20-25 AU/mL .............. Equivocal ??26 AU/mL or Greater ...... Positive Approximately 90% of patients with a P-ANCA pattern by IFA have antibodies specific for MPO. INTERPRETIVE INFORMATION: Serine Proteinase 3, IgG ??19 AU/mL or Less ........ Negative ??20-25 AU/mL ............. Equivocal ??26 AU/mL or Greater ..... Positive Approximately 85% of patients with a C-ANCA pattern by IFA have antibodies specific for PR3. INTERPRETIVE INFORMATION: ANCA IFA Pattern Neutrophil Cytoplasmic Antibodies (C-ANCA = granular cytoplasmic staining, P-ANCA = perinuclear staining) are found in the serum of over 90 percent of patients with certain necrotizing systemic vasculitides, and usually in less than 5 percent of patients with collagen vascular disease or arthritis. Performed By: [facility] [address] [place] [address] Environmental Marketing Representative: Aden Alvares MD, PhD CLIA Number: [id number] Sean Rod MD LAB BLOOD ORDERABLES Final Re sult [facility] [facility] ([place] [place] [facility]) [address] [place] [address] * IG Profile (09/22/2023 10:08 AM EDT) IGA 176 75 - 400 mg/dL 09/22/2023 12:05 PM EDT [facility] IGG 1,424 720 - 1,589 mg/dL 09/22/2023 12:05 PM EDT [facility] IGM 89 35 - 225 mg/dL 09/22/2023 12:05 PM EDT [facility] Blood Venous blood specimen / Unknown Venipuncture / Unknown 09/22/2023 10:08 AM EDT 09/22/2023 10:11 AM EDT Sean Rod MD LAB BLOOD ORDERABLES Final Re sult Performing Organization Address City/[facility]/ZIP Co de Phone Number [facility] [address] [place] [address] * Immunoglobulin G Subclasses (1, 2, 3, 4) (SO) (09/22/2023 10:08 AM EDT) IMMUNOGLOBULIN G SUBCLASS 1 744 240 - 1118 mg/dL 09/26/2023 3:48 AM EDT [facility] ([place]) IMMUNOGLOBULIN G SUBCLASS 2 349 124 - 549 mg/dL 09/26/2023 3:48 AM EDT [facility] ([place]) IMMUNOGLOBULIN G SUBCLASS 3 109 21 - 134 mg/dL 09/26/2023 3:48 AM EDT [facility] ([place]) IMMUNOGLOBULIN G SUBCLASS 4 77 1 - 123 mg/dL 09/26/2023 3:48 AM EDT [facility] ([place]) Blood Venous blood specimen / Unknown Venipuncture / Unknown 09/22/2023 10:08 AM EDT 09/22/2023 10:11 AM EDT Narrative [facility] ([place] [facility]) - 09/26/2023 3:48 AM EDT REFERENCE INTERVAL: Immunoglobulin G Subclass 1 The total IgG (mg/dL) can be derived from the sum of the subclass IgG1, IgG2, IgG3, and IgG4 values. However, a confirmatory and more precise total IgG is available by the turbidimetric method of quantitation for total IgG. ??Refer to test Immunoglobulin G, Serum ([id number]). Access complete set of age- and/or gender-specific reference intervals for this test in the [facility] Test Directory ([facility]). REFERENCE INTERVAL: Immunoglobulin G Subclass 2 Access complete set of age- and/or gender-specific reference intervals for this test in the [facility] Test [facility] ([facility]). REFERENCE INTERVAL: Immunoglobulin G Subclass 3 Access complete set of age- and/or gender-specific reference intervals for this test in the [facility] Test [facility] ([facility]). REFERENCE INTERVAL: Immunoglobulin G Subclass 4 Access complete set of age- and/or gender-specific reference intervals for this test in the [facility] ([facility]). Performed By: [facility] [address] [place] [address] Environmental Marketing Representative: Aden Alvares MD, PhD CLIA Number: [id number] us Sean Rod MD LAB REF LAB BLOOD AND FLUID O RD Final Result [employer] ([facility]) [address] [place] [address] documented in this encounter Visit Diagnoses Diagnosis Tobacco use disorder- Primary Mastitis Inflammatory disease of breast Breast abscess Inflammatory disease of breast Class III obesity with body mass index (BMI) of 40.0 or higher ([facility]/HCC) Eosinophilic esophagitis Enlarged lymph nodes in armpit Enlargement of lymph nodes documented in this encounter Additional Health Concerns Assessment Noted Time PHQ-9 Depression Total Score: 13 024 8:31 AM EDT A fall risk assessment has been complete d for the patient 09/22/2023 8:31 AM EDT A Body Mass Index follow-up plan has been documented for the patient 09/22/2023 9:42 AM EDT documented as of this encounter Care Teams Support Team Assoc Relationship Specialty Start Date End Date Joyce Shaw APRN [address] [place] [address] PCP - General 09/11/23 documented as of this encounter
--- OUTSIDE RECORDS SUMMARY | 2024-01-11 19:07 | XMS_ITS | Encounter Summary ---
Author Organization [facility] Address [address] [place] [address] Care Team Providers Care Looping Machine Operator Name Role Phone Joyce Shaw APRN Primary Care Provider [phone] Encounter Details Date Type Department Care Team (Late st Contact Info) Description 09/19/2023 Telephone [facility] Breast Care [facility] Center [address] [place] [address] Giana Mays MD [address] [place] [address] Social History Tobacco Use Types Packs/Day [...] in a chcf (including now)? No 09/18/2023 CAGE ASSESSMENT Answer [...] drink first t maurilio in the morning (EYE-PREBOARDER) to steady your nerves or to get rid of a hangover? 0 09/16/2023 CAGE Questionnaire Score 0 024 Utilities Answer Date Recorded In the past 12 months has th e [employer], gas, oil, or water company threatened to shut off services in your home? No 09/18/2023 Comments No Sex and Gender Information Value Date Recorded Sex Assigned at Not on file Legal Sex Female 7:54 PM EDT Gender Identity Not on file Sexual Orientation Not on file documented as of this encounter Miscellaneous Notes * Telephone Encounter - Jennifer Estrada RN - 09/20/2023 10:17 AM EDT Left msg for pt to call back to discuss. * Telephone Encounter - Regulo Poon - 09/20/2023 8:10 AM EDT Patient is upset that I told her we could not fix the note from hospital and that I would have to send a message to nurse for appt. Please call patient with appt. She spoke with Dr. Mays and was told to get appt this week. * Telephone Encounter - Regulo Poon - 09/19/2023 12:11 PM EDT Patient is calling was release from hospital today and was given a note to return back to work on Monday, Please call patient she need note to states no restrictions. documented in this encounter Plan of Treatment Upcoming Encounters Date Type Department Care Team (Late st Contact Info) Description 01/12/2024 9:30 AM EST Office Visit [facility] [address] [place] [address] Sean Rod MD [address] [place] [address] 01/16/2024 9:30 AM EST Office [facility] Breast Care Center [address] [facility], 2nd [place] [address] Giana Mays MD [address] [facility] [address] [place] [address] 03/05/2024 8:00 AM EST Appointment [facility] [address] [facility] [address] [place] [address] 03/05/2024 9:00 AM EST Appointment [facility] [address] [facility] [address] [place] [address] 03/05/2024 10:00 AM EST Office Visit [facility] [address] [facility], 2nd [place] [address] Giana Mays MD [address] [facility] [address] Guzman [facility] [address] [place] [address] documented as of this encounter Visit Diagnoses Not on filedocumented in this encounter Additional Health Concerns Assessment Noted Time A fall risk assessment has been complete d for the patient 09/11/2023 1:44 PM EDT A Body Mass Index follow-up plan has been documented for the patient 09/19/2023 9:28 AM EDT documented as of this encounter Care Teams Looping Machine Operator Relationship Specialty Start Date End Date Joyce Shaw APRN [address] [place] [address] PCP - General 09/11/23 documented as of this encounter
--- OUTSIDE RECORDS SUMMARY | 2024-01-11 19:07 | XMS_ITS | Encounter Summary ---
Author Organization Healthcare Address [address] [place] [address] Care Team Providers Care Engraver Steel Plate Name Role Phone Valeria Joyce Lal TERESA Primary Care Provider [phone] Encounter Details Date Type Department Care Team (Late st Contact Info) Description 09/29/2023 Telephone [facility] [address] [place] [address] Sean Rod MD [address] [place] [address] Social History Tobacco Use Types Packs/Day Years [...] place to sleep or slept in a intermediate (including now)? No 09/18/2023 PHQ-9 Answer Date [...] drink first t maurilio in the morning (EYE-NUCLEAR POWERPLANT MECHANIC) to steady your nerves or to get [...] encounter Miscellaneous Notes * Telephone Encounter - Sean Rod MD - 10/05/2023 12:19 PM EDT Images from the original note were not included. Thank you so much [place]! * Telephone Encounter - Asuncion Subramanian RN - 10/02/2023 1:18 PM EDT Fax request sent to [facility] for Dr. Chacko (General Surgery), fax # [phone]. Will monitor for results. * Telephone Encounter - Sean Rod MD - 09/29/2023 3:05 PM EDT Discussed labs Only low vit d 25 and nl 1,25 Can our staff please get records from [facility] Dr MCKNIGHT'S office General surgery Biopsy results- path report? Spoke to Dr Mccarthy her last pathology results from 07/2023 showing chronic inflammation and SMOLD which almost exclusively happens in female smokers. It is best treated with smoking cessation and antibiotics with aspiration of abscesses until she is an ideal surgical candidate. documented in this encounter Plan of Treatment Upcoming Encounters Date Type Department Care Team (Late st Contact Info) Description 01/12/2024 9:30 AM EST Office Visit [facility] [address] [place] [address] Sean Rod MD [address] [place] [address] 01/16/2024 9:30 AM EST Office Visit [facility] Breast [facility] [address] [facility], 2nd [place] [address] Giana Mccarthy MD [address] [facility] Joaquina Guzman [address] [address] 03/05/2024 8:00 AM EST Appointment PAV [facility] Breast [facility] [address] [facility] [address] [place] [address] 03/05/2024 9:00 AM EST Appointment PAV [facility] [address] [facility] [address] [place] [address] 03/05/2024 10:00 AM EST Office Visit [facility] [address] [facility]nd [place] [address] Giana Mccarthy MD [address] [facility] Jo[address] Guzman [address] [address] documented as of this encounter Visit Diagnoses [...] documented as of this encounter Care Teams Engraver Steel Plate Relationship Specialty Start Date End Date Joyce Shaw APRN [address] [place] [address] PCP - General 09/11/23 documented as of this encounter
--- OUTSIDE RECORDS SUMMARY | 2024-01-11 19:07 | XMS_ITS | Encounter Summary ---
Author Organization [facility] Address [address] [place] [address] Care Team Providers Care Senior Adults Director Name Role Phone Hermila Orlando APRN Primary Care Provider [phone] Encounter Details Date Type Department Care Team (Latest Contact Info) Description 07/21/2023 - 07/21/2023 12:04 AM EDT Hospital Encounter [facility] Breast Care Center [facility] Breast Care Center [address] [address] Encounter for other specified special examinations Discharge Disposition: Home or Self Care Social History Tobacco Use Types Packs/Day Years Used Date Smoking Tobacco: Never Smokeless Tobacco: Never Alcohol Use Standard Drinks/Week Comments Not Currently 0 (1 standard drink = 0.6 oz pur e alcohol) PHQ-2 Answer Date Recorded Patient Health Questionnaire-2 Score 2 09/11/2023 Comments Unknown Sex and Gender Information Value Date Recorded Sex Assigned at Not on file Legal Sex Female 7:54 PM EDT Gender Identity Not on file Sexual Orientation Not on file documented as of this encounter Medications at Time of Discharge Lancets (OneTouch Delica Plus [id number]) misc use to test twice zari 04/27/2023 09/16/2023 ondansetron (Zofran) 4 MG tablet 1 tablet (4 mg). 07/18/2023 09/16/2023 documented as of this encounter Plan of Treatment Upcoming Encounters Date Type Department Care Team (Late st Contact Info) Description 01/12/2024 9:30 AM EST Office Visit [facility] Medicine Specialties [address] [place] [address] Sean Rod MD [address] [place] [address] 01/16/2024 9:30 AM EST Office Visit [facility] [address] [facility], [address] [place] [address] Giana Mays MD 800 [facility] [address] [place] [address] 03/05/2024 8:00 AM EST Appointment [facility] 234 [facility] [address] [place] [address] 03/05/2024 9:00 AM EST Appointment [facility] 234 [facility] [address] [place] [address] 03/05/2024 10:00 AM EST Office Visit [facility] [address] [facility], [address] [place] [address] Giana Mays MD 800 [facility] Megan [facility] [address] [place] [address] documented as of this encounter Procedures Procedure Name Priority Date/Time Associated Diagnosis Comments US BREAST OUTSIDE IMAGES UPLOAD Routine 07/21/2023 12:00 AM EDT Encounter for other specified special examinations documented in this encounter Results * US Breast Imaging Outside Images Upload (07/21/2023 12:00 AM EDT) Narrative IMAGING - 09/11/2023 2:45 PM EDT This study was performed at an outside facility and has been loaded into the PACS system for reference only. ??This order has been auto-finalized and does not contain a result. us Imaging Upload Radiant IMG BI PROCEDURES Final R esult IMAGING documented in this encounter Visit Diagnoses Diagnosis Encounter for other specified special examinations documented in this encounter Care Teams Senior Adults Director Relationship Specialty Start Date End Date Hermila Orlando, OPTICAL EFFECTS CAMERA OPERATOR [address] [place] [address] PCP - General 09/03/20 09/10/23 documented as of this encounter
--- OUTSIDE RECORDS SUMMARY | 2024-01-11 19:07 | XMS_ITS | Encounter Summary ---
Author Organization [facility] Address [address] [place] [id number] Care Team Providers Care Force Adjustment Supervisor Name Role Phone Hermila Orlando CIRCLE BEVELER Primary Care Provider [phone] Encounter Details Date Type Department Care Team (Latest Contact Info) Description 07/21/2023 12:05 AM EDT - 07/21/2023 11:59 PM EDT Hospital Encounter [facility] Breast Care Center [facility] Breast Care Center [address] [address] Encounter for other specified special examinations Discharge [...] Time of Discharge Lancets (OneTouch Delica Plus [id number]) misc use to test twice zari 04/27/2023 09/16/2023 ondansetron (Zofran) 4 MG tablet 1 tablet (4 mg). 07/18/2023 09/16/2023 documented as of this encounter Plan of Treatment Upcoming Encounters Date Type Department Care Team (Late st Contact Info) Description 01/12/2024 9:30 AM EST Office Visit [facility] Medicine Specialties [address] [place] [address] Sean Rod MD [address] [place] [address] 01/16/2024 9:30 AM EST Office Visit [facility] Breast [facility] [address] [facility], 2nd [place] [address] Giana Mays MD [address] [facility] [address] [place] [address] 03/05/2024 8:00 AM EST Appointment [facility] 234 [facility] [address] [place] [address] 03/05/2024 9:00 AM EST Appointment [facility] 234 [facility] [address] [place] [address] 03/05/2024 10:00 AM EST Office Visit [address] [place] [address] Giana Mays MD [address] [facility] [address] [address] documented as of this encounter Procedures Procedure Name Priority Date/Time Associated Diagnosis Comments MAMMOGRAPHY OUTSIDE IMAGES UPLOAD Routine 07/21/2023 12:05 AM EDT Encounter for other specified special examinations documented in this encounter Results * Mammography Outside Images Upload (07/21/2023 12:05 AM EDT) Narrative IMAGING - 09/11/2023 2:45 [...] examinations documented in this encounter Care Teams Force Adjustment Supervisor Relationship Specialty Start Date End Date Hermila Orlando APRN [address] [place] [address] PCP - General 09/03/20 09/10/23 documented as of this encounter
--- OUTSIDE RECORDS SUMMARY | 2024-01-11 19:07 | XMS_ITS | Encounter Summary ---
Author Organization [facility] Address [address] [place] [address] Care Team Providers Care Precision Assembly Inspector Name Role Phone Joyce Shaw TERESA Primary Care Provider [phone] Encounter Details Date Type Department Care Team (Latest Contact Info) Description 09/22/2023 Travel Social History Tobacco Use Types Packs/Day [...] to sleep or slept in a senior care (including now)? No 09/18/2023 PHQ-9 Answer Date [...] drink first t maurilio in the morning (EYE-PUMP SERVICER HELPER) to steady your nerves or to [...] Description 01/12/2024 9:30 AM EST [facility] [address] [place] [address] Sean Rod MD [address] [place] [address] 01/16/2024 9:30 AM EST Office Visit [facility] Breast [facility] [address] [facility], 2nd [place] [address] Giana Mays MD 800 [facility] Megan [address] [address] 03/05/2024 8:00 AM EST Appointment PAV [facility] [address] [address] 03/05/2024 9:00 AM EST Appointment [facility] 234 [facility] [address] [place] [address] 03/05/2024 10:00 AM EST Office Visit [facility] [address] [facility], [address] [place] [address] Giana Mays MD 800 [facility] [address] [address] documented as of this encounter Visit Diagnoses [...] documented as of this encounter Care Teams Precision Assembly Inspector Relationship Specialty Start Date End Date Joyce Shaw APRN [address] [place] [address] PCP - General 09/11/23 documented as of this encounter
--- OUTSIDE RECORDS SUMMARY | 2024-01-11 19:07 | XMS_ITS | Encounter Summary ---
Author Organization [facility] Address [address] [place] [address] Care Team Providers Care Alarm Security Or Surveillance Monitor Name Role Phone Shaw, Joyce C TERESA Primary Care Provider + [phone] Reason for Visit * Reason Comments Abscess * Auth/Cert (Routine) Specialty Diagnoses / Procedures Referred By Janaeac t Referred To Contact Diagnoses Breast abscess Lionel Boss MD [address] [phone] Phone: tel: fax: [facility] [address] [place] [phone] Phone: tel: Referral ID Status Reason Start Date Expiration Date Visits Re quested Visits Authorized [id number] 1 Encounter Details Date Type Department Care Team (Late st Contact Info) Description 09/15/2023 9:48 PM EDT - 09/19/2023 10:13 AM EDT Hospital Encounter [facility] [address] [place] [address] Aki Mondragon MD [address] [place] [address] Lionel Boss MD [address] [phone] Giana Mays MD [address] [phone] Breast abscess (Primary Dx) Discharge Disposition: Home or Self [...] drink first t maurilio in the morning ([employer]) to steady your nerves or to get rid of a hangover? 0 09/16/2023 CAGE Questionnaire Score 0 024 Utilities Answer Date Recorded In the past 12 months has th [employer], gas, oil, or water [employer] threatened to shut off services in your home? No 09/18/2023 Comments No Sex and Gender Information Value Date Recorded Sex Assigned at Not on file Legal Sex Female 7:54 PM EDT Gender Identity Not on file Sexual Orientation Not on file documented as of this encounter Last Filed Vital Signs Vital Sign Reading Time Taken Comments Blood Pressure 136/88 09/19/2023 7:38 AM EDT Pulse 80 09/19/2023 7:38 AM EDT Temperature 36.6 ??C (97.9 ??F) 09/19/2023 7:38 AM ED T Respiratory Rate 16 09/19/2023 7:38 AM EDT Oxygen Saturation 97% 09/19/2023 7:38 AM EDT Inhaled Oxygen Concentration - - Weight 148 kg (325 lb 13.4 oz) 09/19/2023 6:00 A M EDT Height 167.6 cm (5' 5.98 ) 09/18/2023 7:42 AM ED T Body Mass Index 52.62 09/18/2023 7:42 AM EDT documented in this encounter Discharge Instructions * Discharge Instructions* Catracho Miller MD - 09/19/2023 8:55 AM EDT You may resume your regular diet. You may resume your home medications, but please hold your Lisinopril while you are taking the Bactrim. Please take the Bactrim as prescribed for it's entire course. If it makes your nauseous, take Zofran 30 minutes beforehand. Continue Tylenol and Ibuprofen as needed for pain. We will schedule a follow up appointment for you in our Breast Clinic for later this week or early next week. documented in this encounter Medications at Time of Discharge hydroCHLOROthiazide (HYDRODiuril) 12.5 MG tablet Take 1 tablet (12.5 mg) by mouth 1 (one) time each day. lisinopril 20 MG tablet Take 1 tablet (20 mg) by mouth 1 (one) time each day. metFORMIN (Glucophage) 1000 MG tablet Take 1 tablet (1,000 mg) by mouth 2 (two) times a day. [employer] Ultra Test test strip 4 Ozempic, 0.25 or 0.5 MG/DOSE, 2 MG/3ML solution pen-injector INJECT 0.5 MG WEEKLY SUBCUTANEOUSLY FOR DIABETES 4 propranolol (Inderal) 20 MG tablet Take 1 tablet (20 mg) by mouth 2 (two) times a day. sulfamethoxazole-tr imethoprim (Bactrim DS) 800-160 MG tablet Take 2 tablets by mouth 2 (two) times a day for 19 doses. 38 tablet 4 09/29/19 24 cariprazine (Vraylar) 3 MG capsule Take 1 [...] 12/26/19 24 documented as of this encounter Miscellaneous Notes * Progress Notes - Kacey Flaherty RN - 09/19/2023 10:13 AM EDT Case Management Discharge Note Ariadne Martinez 32 y.o. female CSN: [id number] Admission: 09/15/2023 9:48 PM Primary Problem: Breast abscess Primary Gas Plant Operator: Primary Caregiver: Self Assistance Available at Discharge: Availability of Care Givers (#Hours): 24 hours Family/Gas Plant Operator(s) Willingness Assessed to care for patient at home: Yes Family/Gas Plant Operator(s) Readiness Assessed to care for patient at home: Yes Housing Circumstances-Z Codes: Housing Circumstances (select all that apply): None Applicable Patient Referred to Financial or Community Resources: Discharge Facility/Level of Care Needs: Discharge Facility/Level of Care Needs: 1-Home or Self Care Patient's Choice of Community Agency(s): Patient/Family Anticipated Services at Transition: Patient/Family Anticipated Services at Transition: none DME/Equipment Needed after Discharge: Equipment Currently Used at Home: none Equipment Needed After Discharge: none Readmission Within the Last 30 Days: Medicare Documentation: Follow-up: No follow-up provider specified. Discharge Transportation: Transportation Home at Discharge: Family/Friend will Provide Has discharge transport been arranged?: Yes What day is the transport expected?: 09/19/23 Follow Up Transport: Transportation Needed to Follow up Appoinments: Family/Friend will Provide POC reviewed with primary team. Refer to primary teams discharge note for details. Pt medically ready to d\c. No further CM needs. Kacey Flaherty RN * Discharge Instr - Appointments - Mary Subramanian - 09/19/2023 9:51 AM EDT Breast Clinic will schedule a follow up appointment for you in our Breast Clinic for later this week or early next week. Call [phone] if you have not heard back. * Discharge Summary - Catracho Miller MD - 09/19/2023 8:58 AM EDT Hospitalization Admit Date/Time: 09/15/2023 9:48 PM Admitting Attending: Lionel Boss Discharge Date: 09/19/23 Discharge Attending Physician: Giana Mays MD PCP name and Address: Joyce Shaw, WOUND/OSTOMY CLINICAL NURSE SPECIALIST [address] [facility] / [place] [address] Referring provider name and address: No referring provider defined for this encounter. Chief Concern, Brief History of Present Illness, and Hospital Course Ariadne Martinez is a 32 year old female with a history of T2DM, HTN, smoking use, obesity, eosinophilic esophagitis, SMOLD, and recurrent bilateral breast abscesses presented to [facility] on 09/15/23 with worsening right breast pain, redness, and swelling. She was found to have another recurrent abscess. She has had 8 prior lumpectomies and multiple I&Ds for abscesses in this breast. She wasseen in our clinic the day prior with the same symptoms and was started on doxycycline. Patient wasadmitted to the Breast Surgery service and started on Vancomycin with improvement in symptoms. She also underwent aspiration of the right breast abscess on 09/18/23. She was deemed appropriate for discharge on 09/19/23 given her improvement. We will arrange for close follow up in clinic. Surgeries and Procedures Aspiration of right breast abscess Medication List .. cariprazine 3 MG capsule Commonly known as: Vraylar Take 1 capsule (3 mg) by mouth every night. hydroCHLOROthiazide 12.5 MG tablet Commonly known as: HYDRODiuril Take 1 tablet (12.5 mg) by mouth 1 (one) time each day. lamoTRIgine 200 MG tablet Commonly known as: LaMICtal Take 1 tablet (200 mg) by mouth 1 (one) time each day. lisinopril 20 MG tablet Take 1 tablet (20 mg) by mouth 1 (one) time each day. metFORMIN 1000 MG tablet Commonly known as: Glucophage Take 1 tablet (1,000 mg) by mouth 2 (two) times a day. ondansetron ODT 4 MG disintegrating tablet Commonly known as: Zofran-ODT Take 1 tablet (4 mg) by mouth every 8 (eight) hours if needed for nausea or vomiting. Ozempic (0.25 or 0.5 MG/DOSE) 2 MG/3ML solution pen-injector Generic drug: Semaglutide(0.25 or 0.5MG/DOS) INJECT 0.5 MG WEEKLY SUBCUTANEOUSLY FOR DIABETES propranolol 20 MG tablet Commonly known as: Inderal Take 1 tablet (20 mg) by mouth 2 (two) times a day. sulfamethoxazole-trimethoprim 800-160 MG tablet Commonly known as: Bactrim DS Take 2 tablets by mouth 2 (two) times a day for 19 doses. Where to Get Your Medications These medications were sent to [facility] [address] [address] ondansetron ODT 4 MG disintegrating tablet sulfamethoxazole-trimethoprim 800-160 MG tablet Discharge Diagnosis Medical Problems Active and Resolved Hospital Problems Hospital * (Principal) Breast abscess Class III obesity with body mass index (BMI) of 40.0 or higher (CMS/[facility]) Post Discharge Instructions You may resume your regular diet. You may resume your home medications, but please hold your Lisinopril while you are taking the Bactrim. Please take the Bactrim as prescribed for it's entire course. If it makes your nauseous, take Zofran 30 minutes beforehand. Continue Tylenol and Ibuprofen as needed for pain. We will schedule a follow up appointment for you in our Breast Clinic for later this week or early next week. Outpatient Follow-Up Future Appointments Date Time Provider Department [facility] 10/10[facility]2023 11[facility]30 [facility] 10/10/2023 1:00 PM [facility] Mays [facility] Test Results Pending At Discharge Pending Labs Order Current Status Body Fluid Culture and Gram Stain Preliminary result Pertinent Physical Exam At Time of Discharge Constitutional: General: She is not in acute distress. Appearance: She is not ill-appearing or toxic-appearing. HENT: Head: Normocephalic and atraumatic. Eyes: General: No scleral icterus. Right eye: No discharge. Left eye: No discharge. Cardiovascular: Rate and Rhythm: Normal rate and regular rhythm. Pulmonary: Effort: Pulmonary effort is normal. No respiratory distress. Chest: Comments: Right breast with near resolution of erythema around the upper inner portion just lateralto the nipple. No fluctuance. Tenderness has improved. Abdominal: General: There is no distension. Palpations: Abdomen is soft. Tenderness: There is no abdominal tenderness. Musculoskeletal: General: No swelling or tenderness. Skin: General: Skin is warm and dry. Coloration: Skin is not jaundiced or pale. Neurological: General: No focal deficit present. Mental Status: She is alert and oriented to person, place, and time. Cranial Nerves: No cranial nerve deficit. Psychiatric: Mood and Affect: Mood normal. Behavior: Behavior normal. Discharge Disposition/Condition Disposition: Home Condition: Stable (s/sx potential problems absent or manageable) I spent >30 minutes of patient care and instruction time in preparation for this discharge. Cosigned by Giana Mays MD at 09/19/2023 9:35 AM EDT Associated attestation - Giana Mays MD - 09/19/2023 9:35 AM EDT I saw and evaluated the patient with the resident/fellow. I discussed the case with the resident/fellow and agree with the findings and plan as documented. * Care Plan - Pam Reddy RN - 09/19/2023 1:26 AM EDT Problem: Adult Inpatient Plan of Care Goal: Plan of Care Review Outcome: Ongoing, Progressing Flowsheets (Taken 09/19/2023 0126) Progress: improving Plan of Care Reviewed With: patient Goal: Patient-Specific Goal (Individualized) Outcome: Ongoing, Progressing Flowsheets (Taken 09/18/20231999) Patient/Family-Specific Goals (Include Timeframe): pt. will remain free from pain during this shift Individualized Care Needs: ongoing Anxieties, Fears or Concerns: none stated Goal: Absence of Hospital-Acquired Illness or Injury Outcome: Ongoing, Progressing Goal: Optimal Comfort and Wellbeing Outcome: Ongoing, Progressing Goal: Readiness for Transition of Care Outcome: Ongoing, Progressing * Care Plan - Latanya Olivier RN - 09/18/2023 5:48 PM EDT Problem: Adult Inpatient Plan of Care Goal: Plan of Care Review Outcome: Ongoing, Progressing Flowsheets (Taken 09/18/2023 0340 by Gin Pink I RN) Progress: no change Plan of Care Reviewed With: patient parent Goal: Patient-Specific Goal (Individualized) Outcome: Ongoing, Progressing Goal: Absence of Hospital-Acquired Illness or Injury Outcome: Ongoing, Progressing Goal: Optimal Comfort and Wellbeing Outcome: Ongoing, Progressing Goal: Readiness for Transition of Care Outcome: Ongoing, Progressing Problem: Skin or Soft Tissue Infection Goal: Absence of Infection Signs and Symptoms Outcome: Ongoing, Progressing Problem: Pain Acute Goal: Optimal Pain Control and Function Outcome: Ongoing, Progressing * Procedures - Catracho Miller MD - 09/18/2023 4:07 PM EDT Aspiration of Right Breast Abscess. Patient was consented prior to procedure. Procedure was performed at bedside. After the right breast was prepped, 10 ml of 1% lidocaine was injected over the area of fluctuance just superomedial to the nipple. Next, using an 18 gauge needle on a syringe, the breast abscess was aspirated, drawing back 35 ml of purulent fluid. A dressing wasplaced over the area and the aspirate sent for culture and gram stain. The patient tolerate the procedure well without any complications. Catracho Miller MD General Surgery - PGY3 Cosigned by Giana Mays MD at 09/22/2023 3:02 PM EDT Associated attestation - Giana Mays MD - 09/22/2023 3:02 PM EDT I was present during all critical and bell portions of the procedure(s) and immediately [facility] the entire duration. See resident note for details. Giana Mays MD * Progress Notes - Kacey Flaherty RN - 09/18/2023 3:27 PM EDT Case Management Adult Initial Progress Note Ariadne Martinez 32 y.o. female CSN: [id number] Admission: 09/15/2023 9:48 PM Primary Problem: Breast abscess Proc Tech reviewed chart and spoke with patient to complete this Initial Case Management Assessment. PCP: Joyce Shaw APRN Emergency Contact: Extended Emergency Contact Information Primary Emergency Contact: Tawny Bernstein Mobile Relation: Mother Preferred language: [place] [employer] Specialist needed? No Insurance: Primary Visit Coverage Payer Plan Sponsor Code Group Number Group Name [facility] MEDICAID [employer] MEDICAID Primary Visit Coverage Subscriber Subscriber ID Subscriber Name Subscriber N Subscriber Address [id number] ARIADNE MARTINEZ [id number] [place] [address] Patient information: Primary Caregiver: Self Accompanied by/Relationship: none Support System: Immediate family Daily Living Activities: Functional Status: Independent Living Arrangements: Children, Parent/Gaurdian Type of Residence: Private residence, Single Level [address] [place] [address] Smoker in the Home?: Yes Current DME: Equipment Currently Used at Home: none Income Information: Income Source: Employed Current Resources Utilized: None Housing Circumstances-Z Codes: Housing Circumstances (select all that apply): None Applicable Patient Referred to: Anticipated Discharge Date: 09/18 Patient's Discharge Goal: return to own home Assistance Available at Discharge: Discharge Transport: family Follow Up Transport: family Home Health / Home Infusion / Outpatient Dialysis Services: nonoe Living Will/Advance Directive/Power of Residential Interior Designer /Guardian: Unable to assess: No Have you reviewed your Advance Directive and is it valid for this stay?: No Advance Directive: Patient does not have advance directive, Patient would not like information Information Provided on Healthcare Directives: No Pre-existing DNR/DNI Order: No Patient Requests Assistance: No Additional Comments: Kacey Flaherty RN * Significant Event - Kacey Flaherty RN - 09/18/2023 3:27 PM EDT 09/18/23 1526 Housing Stability In the last 12 months, was there a time when you were not able to pay the mortgage or rent on time?N In the last 12 months, how many places have you lived? 1 In the last 12 months, was there a time when you did not have a steady place to sleep or slept in ashelter (including now)? N Food Insecurity Within the past 12 months, you worried that your food would run out before you got the money to buymore. Never true Within the past 12 months, the food you bought just didn't last and you didn't have money to get more. Never true Utilities In the past 12 months has the [employer], gas, oil, or water [employer] threatened to shut off services in your home? No Transportation Needs In the past 12 months, has lack of transportation kept you from medical appointments or from getting medications? no In the past 12 months, has lack of transportation kept you from meetings, work, or from getting things needed for daily living? No Intimate Partner Violence Within the last year, have you been afraid of your partner or ex-partner? No Within the last year, have you been humiliated or emotionally abused in other ways by your partner or ex-partner? No Within the last year, have you been kicked, hit, slapped, or otherwise physically hurt by your partner or ex-partner? No Within the last year, have you been raped or forced to have any kind of sexual activity by your partner or ex-partner? No Help Needed Would you like help with any of the following needs? (Select ALL that apply) I don't want help withany of these * Progress Notes - Catracho Miller MD - 09/18/2023 1:28 PM EDT Subjective Patient thinks the redness around her breast has improved. Still has pain. Had an episode of emesisovernight, but continues to tolerate food. Review of Systems All other systems reviewed and are negative. Objective Physical Exam Constitutional: General: She is not in acute distress. Appearance: She is not ill-appearing or toxic-appearing. HENT: Head: Normocephalic and atraumatic. Eyes: General: No scleral icterus. Right eye: No discharge. Left eye: No discharge. Cardiovascular: Rate and Rhythm: Normal rate and regular rhythm. Pulmonary: Effort: Pulmonary effort is normal. No respiratory distress. Chest: Comments: Right breast with slight erythema around the upper inner portion just lateral to the nipple with a small area of possible fluctuance. Abdominal: General: There is no distension. Palpations: Abdomen is soft. Tenderness: There is no abdominal tenderness. Musculoskeletal: General: No swelling or tenderness. Skin: General: Skin is warm and dry. Coloration: Skin is not jaundiced or pale. Neurological: General: No focal deficit present. Mental Status: She is alert and oriented to person, place, and time. Cranial Nerves: No cranial nerve deficit. Psychiatric: Mood and Affect: Mood normal. Behavior: Behavior normal. Last Recorded Vitals Blood pressure 122/75, pulse 84, temperature 36.8 ??C (98.3 ??F), temperature source Oral, resp. rate 16, height 1.676 m (5' 5.98 ), weight 148 kg (326 lb 15.1 oz), SpO2 96%. Assessment/Plan Principal Problem: Breast abscess Active Problems: Class III obesity with body mass index (BMI) of 40.0 or higher ([facility]) Ariadne Martinez is a 32 y.o. female with PMHx of T2DM, HTN, obesity (BMI 46.6), eosinophilic esophagitis, recurrent bilateral breast abscess, SMOLD, multiple lumpectomy's and I&Ds admitted for right breast abscess. Patient's symptoms have improved on Vancomycin. There is a small area over her right breast that wewill try to aspirate later today. Plan for discharge home tomorrow with oral antibiotics and close follow up in breast clinic. Cosigned by Giana Mays MD at 09/18/2023 3:58 PM EDT Associated attestation - Giana Mays MD - 09/18/2023 3:58 PM EDT I saw and evaluated the patient with the resident/fellow. I discussed the case with the resident/fellow and agree with the findings and plan as documented. Discussed the natural history of recurrent breast abscesses and their risk factors, namely uncontrolled diabetes, smoking, and obesity. The best path forward at this point is modifying those modifiable risk factors, and once she has a disease free interval and still desires prophylactic mastectomy we could discuss at that point. For today we will attempt aspiration, discuss PO antibiotics recommendations from pharmacy, and plan for discharge in AM. As an outpatient we will obtain diagnostic imaging, refer for tobacco cessation, and discuss weight management options. She voiced understanding and agreement. * Progress Notes - Amarjit Connelly, PharmD - 09/18/2023 9:17 AM EDT Images from the original note were not included. Pharmacokinetic Consult - Therapeutic Drug Monitoring HPI and Hospital Course: Ariadne Martinez is a 32 y.o. female who continues vancomycin for breast Cellulitis, Skin and Soft Tissue. Pharmacy was consulted for management of vancomycin. Steady-state levels were obtained to assess safety and efficacy of current dosing regimen. Dose History: Antimicrobials Glycopeptides Disp Start End Vancomycin HCl in NaCl (Vancocin) IVPB 1,000 mg -- 09/18/2023 -- 1,000 mg, Intravenous, Every 8 hours @ 250 mL/hr vancomycin in NS (Vancocin) IVPB 1,500 mg (Discontinued) -- 09/17/2023 09/18/2023 1,500 mg, Intravenous, Every 12 hours @ 166.7 mL/hr Microbiology: Results No results found for the last 48 hours. Renal Function: Serum creatinine: 0.64 mg/dL 09/18/23 0311 Estimated creatinine clearance: 125 mL/min Pharmacokinetic Evaluation Current Regimen 1500 mg Q12H C1 (peak, drawn) 29.8 mcg/mL C2 (trough, drawn) 7.4 mcg/mL Ke 0.144 hr -1 T ?? 4.8 hr Cmax, actual 38.6 mcg/mL Ctrough, actual 6.9 mcg/mL Vd 42.6 L (0.45 L/kg) AUC 491 mg.hr/L Assessment and Plan: AUC of 491 is considered therapeutic (goal 400-600). Based on shorter half-life, plan to adjust to same total daily dose with shorter interval. Adjust to vancomycin 1000 mg IV Q8H beginning 09/17 at 1200. This yields a predicted Cmax of 34.4 mg/L, Cmin of 12.6 mg/L, and AUC of 491. Would suggest obtaining CBC, BMP at least 2 - 3 times weekly while admitted to assess renal function (SCr/BUN/UOP). Recommend obtaining repeat vancomycin levels after 3-5 doses/steady state of regimen, or sooner forchange in patient clinical status. Adjust antimicrobial therapy as appropriate pending cultures and sensitivities. Pharmacist will continue to monitor therapy with primary service. Amarjit Connelly, PharmD, MS, BCCCP Critical Care Clinical Pharmacist, Specialty Surgery * Care Plan - Gin Pink RN - 09/18/2023 3:41 AM EDT Problem: Adult Inpatient Plan of Care Goal: Plan of Care Review Outcome: Ongoing, Progressing Flowsheets (Taken 09/18/2023 034) Progress: no change Plan of Care Reviewed With: patient parent Goal: Patient-Specific Goal (Individualized) Outcome: Ongoing, Progressing Flowsheets (Taken 09/18/2023 0340) Patient/Family-Specific Goals (Include Timeframe): Patient will endorse adequate pain control on current regimen during shift Individualized Care Needs: Ongoing Anxieties, Fears or Concerns: Plan of care pain control nausea control Goal: Absence of Hospital-Acquired Illness or Injury Outcome: Ongoing, Progressing Goal: Optimal Comfort and Wellbeing Outcome: Ongoing, Progressing Goal: Readiness for Transition of Care Outcome: Ongoing, Progressing Problem: Skin or Soft Tissue Infection Goal: Absence of Infection Signs and Symptoms Outcome: Ongoing, Progressing Intervention: Minimize and Manage Infection Progression Flowsheets (Taken 09/18/2023 0340) Infection Prevention: rest/sleep promoted Isolation Precautions: maintained: protective environment Intervention: Provide Meticulous Infection Site Care Flowsheets (Taken 09/18/2023 0340) Topical Inflammation Care: border marked Problem: Pain Acute Goal: Optimal Pain Control and Function Outcome: Ongoing, Progressing Intervention: Develop Pain Management Plan Flowsheets (Taken 09/17/2023 2340) Pain Management Interventions: medication (see MAR) Intervention: Prevent or Manage Pain Flowsheets (Taken 09/18/2023 0340) Bowel Elimination Promotion: ambulation promoted adequate fluid intake promoted Sleep/Rest Enhancement: awakenings minimized room darkened Intervention: Optimize Psychosocial Wellbeing Flowsheets (Taken 09/18/2023 0340) Supportive Measures: active listening utilized decision-making supported * Care Plan - Clara Murrell RN - 09/17/2023 11:35 AM EDT Problem: Adult Inpatient Plan of Care Goal: Plan of Care Review Outcome: Ongoing, Progressing Flowsheets Taken 09/16/2023 194 by Kiesha Oliva Progress: no change Taken 09/16/2023 0747 by Divya Gallegos RN Plan of Care Reviewed With: patient Goal: Patient-Specific Goal (Individualized) Outcome: Ongoing, Progressing Goal: Absence of Hospital-Acquired Illness or Injury Outcome: Ongoing, Progressing Goal: Optimal Comfort and Wellbeing Outcome: Ongoing, Progressing Goal: Readiness for Transition of Care Outcome: Ongoing, Progressing * Progress Notes - Turner Real MD - 09/17/2023 10:20 AM EDT Images from the original note were not included. [facility] Department of Surgery Division of Surgical Oncology Surgery Progress Note 09/17/23 Ariadne Martinez Subjective Subjective: HPI Ariadne Martinez is a 32 y.o. female with PMHx of T2DM, HTN, obesity (BMI 46.6), eosinophilic esophagitis, recurrent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 Anaphylaxis and Other - please document in the comment field ??? Hydrocodone-Acetaminophen Swelling ??? Silver Rash ??? Wasp Venom Protein Other - please document in the comment field Review of Systems Review of Systems Constitutional: Negative for activity change, appetite change, chills, fatigue and fever. Eyes: Negative for pain and visual disturbance. Respiratory: Negative for cough and shortness of breath. Cardiovascular: Negative for chest pain and palpitations. Gastrointestinal: Negative for abdominal pain, diarrhea, nausea and vomiting. Skin: Right breast redness, swelling, pain Neurological: Negative for dizziness and headaches. All other systems reviewed and are negative. 14 point ROS reviewed and is otherwise negative except as per HPI Physical Exam ED Triage Vitals [09/15/233] Temp Heart Rate Resp BP 36.6 ??C (97.9 ??F) 103 18 (!) 149/88 SpO2 Temp Source Heart Rate Source Patient Position 93 % Oral -- -- BP Location FiO2 (%) -- -- Physical Exam Vitals and nursing note reviewed. Constitutional: General: She is not in acute distress. Appearance: Normal appearance. HENT: Head: Normocephalic and atraumatic. Mouth/Throat: Mouth: Mucous membranes are moist. Pharynx: Oropharynx is clear. Eyes: General: Right eye: No discharge. Left eye: No discharge. Conjunctiva/sclera: Conjunctivae normal. Pupils: Pupils are equal, round, and reactive to light. Pulmonary: Effort: Pulmonary effort is normal. No respiratory distress. Breath sounds: No stridor. Musculoskeletal: General: Normal range of motion. Cervical back: No rigidity. Skin: General: Skin is warm and dry. Comments: Large tender area of induration, erythema, and tenderness to palpation of the medial right breast with associated Peau D'orange (picture uploaded to media) Neurological: Mental Status: She is alert and oriented to person, place, and time. Psychiatric: Mood and Affect: Mood normal. Behavior: Behavior normal. ED Course & MDM Clinical Impressions as of 09/16/23 0908 Breast abscess - Medical Decision Making Date/Time: 09/15/2023/9:30 PM Scribe Attestation: This note was dictated to me, Anna Veloz, acting as a scribe for Dr. Aguirre. Attending Attestation: The documentation was recorded by Anna Veloz acting as scribe in my presence at the time of the encounter and accurately reflects the service I personally performed. Assessment and Plan: Ariadne Martinez is a 32 y.o. 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 History was obtained by patient. Initial Assessment: - On arrival, the patient was hemodynamically stable, non-febrile, and non-toxic appearing. Physical exam was notable for: Large tender area of induration, erythema, and tenderness to palpation of the medial right breast with associated Peau D'orange (picture uploaded to media). Differential Diagnoses: - Differential diagnosis includes but is not limited to breast abscess, cellulitis, inflammatory breast cancer, squamous metaplasia of lactiferous ducts, mastitis, bacteremia . Orders: - Orders Placed This Encounter Procedures ??? US Breast Limited Right ??? BMP ??? CBC ??? Hepatitis C Antibody - ED ??? ED Protocol - HIV 1/2 Antibody/Antigen Screen ??? ED HIV 1/2 Antibody/Antigen Screen w/Reflex to HIV 1/2 Differentiation ??? Insert peripheral IV Interventions/Medications: - Patient received IV Toradol, IV Compazine, oral oxycodone for treatment. Laboratory studies independently reviewed and interpreted by myself and pertinent for: - ESR and CRP within normal limits CBC unremarkable without leukocytosis -CMP unremarkable Imaging studies independently reviewed and interpreted by myself and shows: - right breast ultrasound demonstrates complex appearing collection containing debris within the soft tissues of the right breast medial and superior to nipple measuring 5.3 x 3.8 x 2.3 cm. Please see radiology interpretation for final read. Consults - I had an interactive discussion with our ESS (numerical control router operator for SurgOnc) service regarding the patient's case; they agree to evaluate the patient in the ED. - After our discussion and their evaluation, they agreed to admit the patient to their service and accept primary responsibility of the patient moving forward. The patient remained hemodynamically stable while under my care in the emergency department and was admitted without issue. Impression: 1. Breast abscess Disposition: - admission to ESS ED Prescriptions None Sign Off Checklist Clinical Impression: Complete ED Disposition: Complete - MD Jose Hart Brennan S, MD Resident 09/16/23 0908 Cosigned by Aki Mondragon MD at 09/19/2023 2:01 PM EDT Associated attestation - Aki Mondragon MD - 09/19/2023 2:01 PM EDT I saw and evaluated the patient with the resident/fellow. I discussed the case with the resident/fellow and agree with the findings and plan as documented. * ED Triage Notes - Lin Chen RN - 09/15/2023 9:13 PM EDT Presents via POV d/t recurring breast abscess. R breast abscess with I&D 1.5 week ago at [facility]. Wound closed the last two days with worsening erythema, pain, swelling. Currently on abx and steriods. (3rd) round of abx. documented in this encounter Plan of Treatment Upcoming Encounters Date Type Department Care Team (Late st Contact Info) Description 01/12/2024 9:30 AM EST Office Visit [facility] [address] [place] [address] Sean Rod MD [address] [place] [address] 01/16/2024 9:30 AM EST Office Visit [facility] [address] [place] [address] Giana Mays MD [address] [phone] 03/05/2024 8:00 AM EST Appointment [address] [phone] 03/05/2024 9:00 AM EST Appointment [address] [place] [address] 03/05/2024 10:00 AM EST Office Visit [facility] [address] [place] [address] Giana Mays MD [address] [phone] documented as of this encounter Procedures Procedure Name Priority Date/Time Associated Diagnosis Comments POCT GLUCOSE METER UNSOLICITED RESULTS Routine 09/19/2023 7:37 AM EDT POCT GLUCOSE METER UNSOLICITED RESULTS Routine 09/18/2023 8:18 PM EDT BODY FLUID CULTURE AND GRAM STAIN Routine 09/18/2023 4:55 PM EDT POCT GLUCOSE METER UNSOLICITED RESULTS Routine 09/18/2023 4:53 PM EDT POCT GLUCOSE METER UNSOLICITED RESULTS Routine 09/18/2023 11:41 AM EDT POCT GLUCOSE METER UNSOLICITED RESULTS Routine 09/18/2023 7:40 AM EDT VANCOMYCIN, PEAK, PLASMA Timed 09/18/2023 6:17 AM EDT VANCOMYCIN, TROUGH, PLASMA Timed 09/18/2023 3:12 AM EDT CBC WITH AUTO DIFFERENTIAL Routine 09/18/2023 3:11 AM EDT PHOSPHORUS, PLASMA Routine 09/18/2023 3: 11 AM EDT MAGNESIUM, PLASMA Routine 09/18/2023 3:1 1 AM EDT COMPREHENSIVE METABOLIC PANEL, PLASMA Routine 09/18/2023 3:11 AM EDT POCT GLUCOSE METER UNSOLICITED RESULTS Routine 09/17/2023 8:28 PM EDT POCT GLUCOSE METER UNSOLICITED RESULTS Routine 09/17/2023 5:[address] ABDOMEN PELVIS W IV CONTRAST STAT 09/17/2023 2:21 PM EDT POCT GLUCOSE METER UNSOLICITED RESULTS Routine 09/17/2023 11:48 AM EDT URINALYSIS MICROSCOPIC FOR UA REFLEX Routine 09/17/2023 11:25 AM EDT URINALYSIS WITH REFLEX MICROSCOPIC Routine 09/17/2023 11:25 AM EDT ECG ADULT STAT 09/17/2023 11:12 AM EDT LIPASE, PLASMA Routine 09/17/2023 11:06 AM EDT AMYLASE, PLASMA Routine 09/17/2023 11:06 AM EDT POCT GLUCOSE METER UNSOLICITED RESULTS Routine 09/17/2023 7:26 AM EDT CBC W/O DIFFERENTIAL Routine 09/17/2023 4:59 AM EDT PHOSPHORUS, PLASMA Routine 09/17/2023 4: 59 AM EDT MAGNESIUM, PLASMA Routine 09/17/2023 4:5 9 AM EDT HEMOGLOBIN A1C Routine 09/17/2023 4:59 AM EDT BASIC METABOLIC PANEL, PLASMA Routine 09/17/2023 4:59 AM EDT POCT GLUCOSE METER UNSOLICITED RESULTS Routine 09/16/2023 7:46 PM EDT POCT GLUCOSE METER UNSOLICITED RESULTS Routine 09/16/2023 4:35 PM EDT POCT GLUCOSE METER UNSOLICITED RESULTS Routine 09/16/2023 11:54 AM EDT POCT GLUCOSE METER UNSOLICITED RESULTS Routine 09/16/2023 5:57 AM EDT CBC W/O DIFFERENTIAL Routine 09/16/2023 3:51 AM EDT PHOSPHORUS, PLASMA Routine 09/16/2023 3: 51 AM EDT MAGNESIUM, PLASMA Routine 09/16/2023 3:5 1 AM EDT COMPREHENSIVE METABOLIC PANEL, PLASMA Routine 09/16/2023 3:51 AM EDT US BREAST LIMITED RIGHT STAT 09/15/19 10:12 PM EDT ED HIV 1/2 ANTIBODY/ANTIGEN SCREEN WITH REFLEX TO HIV I/II DIFFERENTIATION STAT 09/15/2023 9:42 PM EDT ED PROTOCOL HIV 1/2 ANTIBODY/ANTIGEN SCREEN W/REFLEX TO HIV 1/2 ANTIBODY DIFFERENTIATION STAT 09/15/2023 9:42 PM EDT HEPATITIS C ANTIBODY - ED W/REFLEX TO HCV QUANT PCR STAT 09/15/2023 9:42 PM EDT SEDIMENTATION RATE, AUTOMATED STAT Add-on 09/15/2023 9:42 PM EDT CBC W/O DIFFERENTIAL STAT 09/15/2023 9:42 PM EDT C-REACTIVE PROTEIN, PLASMA Add-On 09/15/2023 9:42 PM EDT BASIC METABOLIC PANEL, PLASMA STAT 09/15/2023 9:42 PM EDT documented in this encounter Results * (ABNORMAL) POCT glucose meter (09/19/2023 7:37 AM EDT) [facility] POCT Glucose 101(H) 74 - 99 mg/dL 09/19/2023 7:39 AM EDT [facility] Comment:Accuracy of a glucos e result obtained from a capillary whole blood specimen relies upon adequate, non-compromised capillary blood flow. If the capillary glucose result is not consistent with the patient's clinical signs and symptoms, glucose testing should be repeated with either an arterial or venous sample on the glucometer or sent to the main labortory for testing. Comment 09/19/2023 7:39 AM EDT [facility] Engine Research Engineer ID Thang Correia 09/19/19 7:39 AM EDT [facility] Device ID [id number] 09/19/2023 7:39 AM EDT [facility] Specimen Type POC Capillary 09/19/2023 7:39 AM EDT [facility] Blood Capillary blood specimen / Unknown 09/19/2023 7:37 AM EDT 09/19/2023 7:39 AM EDT us Giana Mays MD LAB POINT OF CARE TE ST DOCKED DEVICE UNSOLICITED RESULTS Final Result Performing Organization Address City/[facility] Co de Phone Number [facility] [address] [place] [address] * (ABNORMAL) POCT glucose meter (09/18/2023 8:18 PM EDT) POCT Glucose 143(H) 74 - 99 mg/dL 09/18/2023 8:20 PM EDT [facility] Comment:Accuracy of a glucos e result obtained from a capillary whole blood specimen relies upon adequate, non-compromised capillary blood flow. If the capillary glucose result is not consistent with the patient's clinical signs and symptoms, glucose testing should be repeated with either an arterial or venous sample on the glucometer or sent to the main labortory for testing. Comment 09/18/2023 8:20 PM EDT [facility] Engine Research Engineer ID Britt Bunch 09/18/2023 8:20 PM EDT [facility] Device ID [id number] 09/18/2023 8:20 PM EDT [facility] Specimen Type POC Capillary 09/18/2023 8:20 PM EDT [facility] Blood Capillary blood specimen / Unknown 09/18/2023 8:18 PM EDT 09/18/2023 8:20 PM EDT us Giana Mays MD LAB POINT OF CARE TE ST DOCKED DEVICE UNSOLICITED RESULTS Final Result Performing Organization Address City/[facility] Co de Phone Number [facility] [address] [place] [address] * Body Fluid Culture and Gram Stain (09/18/2023 4:55 PM EDT) Culture No growth at day 4 2023 12:10 PM EDT [facility] Gram Stain Result Numerous Polymorphonuclear leukocytes 09/21/2023 12:10 PM EDT [facility] Gram Stain Result No organisms seen 09/21/2023 12:10 PM EDT [facility] Body Fluid Right breast structure / Unknown Non-blood Collection / Unknown 09/18/2023 4:55 PM EDT 09/18/2023 5:22 PM EDT Giana Mays MD LAB MICROBIOLOGY - GENERAL O RDERABLES Final Result Performing Organization Address City/[facility] Co de Phone Number [facility] [address] [place] [address] * (ABNORMAL) POCT glucose meter (09/18/2023 4:53 PM EDT) POCT Glucose 156(H) 74 - 99 mg/dL 09/18/2023 4:55 PM EDT [facility] Comment:Accuracy of a glucos e result obtained from a capillary whole blood specimen relies upon adequate, non-compromised capillary blood flow. If the capillary glucose result is not consistent with the patient's clinical signs and symptoms, glucose testing should be repeated with either an arterial or venous sample on the glucometer or sent to the main labortory for testing. Comment 09/18/2023 4:55 PM EDT [facility] Engine Research Engineer ID Qian Hutton 09/18/2023 4:55 PM EDT [facility] Device ID [id number] 09/18/2023 4:55 PM EDT [facility] Specimen Type POC Capillary 09/18/2023 4:55 PM EDT [facility] Blood Capillary blood specimen / Unknown 09/18/2023 4:53 PM EDT 09/18/2023 4:55 PM EDT Giana Mays MD LAB POINT OF CARE TE ST DOCKED DEVICE UNSOLICITED RESULTS Final Result Performing Organization Address [facility] Co de Phone Number [facility] [address] [place] [address] * (ABNORMAL) POCT glucose meter (09/18/2023 11:41 AM EDT) POCT Glucose 104(H) 74 - 99 mg/dL 09/18/2023 11:43 AM EDT [facility] Comment:Accuracy of a glucos e result obtained from a capillary whole blood specimen relies upon adequate, non-compromised capillary blood flow. If the capillary glucose result is not consistent with the patient's clinical signs and symptoms, glucose testing should be repeated with either an arterial or venous sample on the glucometer or sent to the main labortory for testing. Comment 09/18/2023 11:43 AM EDT [facility] Engine Research Engineer ID Qian Hutton 09/18/2023 11:43 AM EDT [facility] Device ID [id number] 09/18/2023 11:43 AM EDT [facility] Specimen Type POC Capillary 09/18/2023 11:43 AM EDT [facility] Blood Capillary blood specimen / Unknown 09/18/2023 11:41 AM EDT 09/18/2023 11:43 AM EDT Giana Mays MD LAB POINT OF CARE TE ST DOCKED DEVICE UNSOLICITED RESULTS Final Result Performing Organization Address City/State/[facility] Co de Phone Number [facility] [address] [place] [address] * (ABNORMAL) POCT glucose meter (09/18/2023 7:40 AM EDT) [facility] POCT Glucose 124(H) 74 - 99 mg/dL 09/18/2023 7:42 AM EDT [facility] Comment:Accuracy of a glucos e result obtained from a capillary whole blood specimen relies upon adequate, non-compromised capillary blood flow. If the capillary glucose result is not consistent with the patient's clinical signs and symptoms, glucose testing should be repeated with either an arterial or venous sample on the glucometer or sent to the main labortory for testing. Comment 09/18/2023 7:42 AM EDT [facility] Engine Research Engineer ID Qian Hutton 09/18/2023 7:42 AM EDT [facility] Device ID [id number] 09/18/2023 7:42 AM EDT [facility] Specimen Type POC Capillary 09/18/2023 7:42 AM EDT [facility] Blood Capillary blood specimen / Unknown 09/18/2023 7:40 AM EDT 09/18/2023 7:42 AM EDT us Giana Mays MD LAB POINT OF CARE TE ST DOCKED DEVICE UNSOLICITED RESULTS Final Result Performing Organization Address [facility] Co de Phone Number [facility] [address] [place] [address] * Vancomycin, Peak, Plasma Please draw ~2 hours after 0300 dose of vancomycin finishes infusing. Consider obtaining level via peripheral stick. If peripheral stick is not feasible, please ensure that line is flushed well prior to drawing level. Than... (09/18/2023 6:17 AM EDT) Vancomycin, Peak, Plasma 29.8 20.0 - 40.0 ug/mL 09/18/2023 6:56 AM EDT [facility] Blood Venous blood specimen / Unknown Venipuncture / Unknown 09/18/2023 6:17 AM EDT 09/18/2023 6:27 AM EDT Narrative [facility] - 09/18/2023 6:56 AM EDT Therapeutic Peak level: ? 20-40ug/mL Supra-therapeutic Peak level: ??>40 ug/mL us Lionel Boss MD LAB BLOOD ORDERABLES Final Result Performing Organization Address [facility] de Phone Number [facility] [address] [place] [address] * (ABNORMAL) Vancomycin, Trough, Plasma Please draw ~30 minutes prior to dose due at 0300 on 09/17. Please do NOT hold dose awaiting level to return. Consider obtaining level via peripheral stick. If peripheral stick is not feasible, please ensure that line is... (09/18/2023 3:12 AM EDT) Vancomycin, Trough, Plasma 7.4(L) 10.0 - 20.0 ug/mL 09/18/2023 4:40 AM EDT [facility] Blood Venous blood specimen / Unknown Venipuncture / Unknown 09/18/2023 3:12 AM EDT 09/18/2023 4:11 AM EDT Narrative [facility] - 09/18/2023 4:40 AM EDT Therapeutic Trough level: ? 10-20ug/mL Supra-therapeutic Trough level: ??>20 ug/mL us Lionel Boss MD LAB BLOOD ORDERABLES Final Result Performing Organization Address City/[facility] Co de Phone Number [facility] [address] [place] [address] * Phosphorus (09/18/2023 3:11 AM EDT) Phosphorus, Plasma 3.5 2.5 - 4.5 mg/dL 09/18/2023 4:40 AM EDT [facility] Blood Venous blood specimen / Unknown Venipuncture / Unknown 09/18/2023 3:11 AM EDT 09/18/2023 4:10 AM EDT us Lionel Boss MD LAB BLOOD ORDERABLES Final Result Performing Organization Address [facility] Co de Phone Number [facility] [address] [place] [address] * Magnesium (09/18/2023 3:11 AM EDT) Magnesium, Plasma 2.1 1.9 - 2.4 mg/dL 09/18/2023 4:40 AM EDT [facility] Blood Venous blood specimen / Unknown Venipuncture / Unknown 09/18/2023 3:11 AM EDT 09/18/2023 4:10 AM EDT us Lionel Boss MD LAB BLOOD ORDERABLES Final Result Performing Organization Address City/[facility] Co de Phone Number [facility] [address] [place] [address] * (ABNORMAL) Comprehensive Metabolic Panel, Plasma (09/18/2023 3:11 AM EDT) Glucose, Plasma 128(H) 74 - 99 mg/dL 09/18/2023 4:40 AM EDT [facility] BUN, Plasma 7 7 - 21 mg/dL 09/18/2023 4:40 AM [facility] Creatinine, Plasma 0.64 0.60 - 1.10 mg/dL 09/18/2023 4:40 AM EDT [facility] BUN/Creatinine Ratio 11 09/18/2023 4:40 AM T [facility] Sodium, Plasma 136 136 - 145 mmol/L 09/18/2023 4:40 AM T [facility] Potassium, Plasma 4.0 3.7 - 4.8 mmol/L 09/18/2023 4:40 AM T [facility] Chloride, Plasma 105 97 - 107 mmol/L 09/18/2023 4:40 AM T [facility] CO2, Plasma 24 22 - 29 mmol/L 09/18/2023 4:40 AM T [facility] Anion Gap 7 6 - 16 mmol/L 09/18/2023 4:40 AM [facility] Total Calcium, Plasma 8.7(L) 8.9 - 10.2 mg/dL 09/18/2023 4:40 AM [facility] Total Protein 6.2(L) 6.3 - 7.9 g/dL 09/18/2023 4:40 AM [facility] Albumin, Plasma 3.6 3.5 - 5.2 g/dL 09/18/2023 4:40 AM T [facility] AST, Plasma 16 10 - 35 U/L 09/18/2023 4:40 AM [facility] ALT, Plasma 19 10 - 35 U/L 09/18/2023 4:40 AM [facility] Alkaline Phosphatase, Plasma 61 35 - 104 U/L 09/18/2023 4:40 AM [facility] Total Bilirubin, Plasma <0.2(L) 0.2 - 1.1 mg/dL 09/18/2023 4:40 AM [facility] eGFRcr 119.1 mL/min/1.7 3m*2 09/18/2023 4:40 AM [facility] Comment:Reported eGFRcr in m L/min/1.73m2 is based the CKD-EPI 2020 equation that does not use a race coefficient. Blood Venous blood specimen / Unknown Venipuncture / Unknown 09/18/2023 3:11 AM EDT 09/18/2023 4:10 AM EDT us Lionel Boss MD LAB BLOOD ORDERABLES Final Result [facility] [address] [place] [address] * CBC and differential (09/18/2023 3:11 AM EDT) WBC Count 4.56 3.70 - 10.30 10*3/uL LAB HEMATOLOGY METHOD 09/18/2023 4:27 AM EDT [facility] RBC Count 4.03 3.90 - 5.20 10*6/uL LAB HEMATOLOGY METHOD 09/18/2023 4:27 AM EDT [facility] HGB 11.8 11.2 - 15.7 g/dL LAB HEMATOLOGY METHOD 09/18/2023 4:27 AM EDT [facility] HCT 34.7 34.0 - 45.0 % LAB HEMATOLOGY METHOD 09/18/2023 4:27 AM EDT [facility] Platelet Count 286 155 - 369 10*3/uL LAB HEMATOLOGY METHOD 09/18/2023 4:27 AM EDT [facility] MCV 86 79 - 98 fL LAB HEMATOLOGY METHOD 09/18/2023 4:27 AM EDT [facility] MCH 29.3 26.0 - 32.0 pg LAB HEMATOLOGY METHOD 09/18/2023 4:27 AM EDT [facility] MCHC 34.0 30.7 - 35.5 g/dL LAB HEMATOLOGY METHOD 09/18/2023 4:27 AM EDT [facility] RDW 11.7 11.5 - 14.5 % LAB HEMATOLOGY METHOD 09/18/2023 4:27 AM EDT [facility] MPV 10.2 8.8 - 12.5 fL LAB HEMATOLOGY METHOD 09/18/2023 4:27 AM EDT [facility] nRBC 0.0 <=0.0 per 100 WBCs LAB HEMATOLOGY METHOD 09/18/2023 4:27 AM EDT [facility] Differential Type Automated LAB HEMATOLOGY METHOD 09/18/2023 4:27 AM EDT [facility] Neutrophils % 46.0 % LAB HEMATOLOGY METHOD 09/18/2023 4:27 AM EDT [facility] Lymphocytes % 38.0 % LAB HEMATOLOGY METHOD 09/18/2023 4:27 AM EDT [facility] Monocytes % 8.0 % LAB HEMATOLOGY METHOD 09/18/2023 4:27 AM EDT [facility] Eosinophils % 7.0 % LAB HEMATOLOGY METHOD 09/18/2023 4:27 AM EDT [facility] Basophils % 1.0 % LAB HEMATOLOGY METHOD 09/18/2023 4:27 AM EDT [facility] Immature Granulocytes % 0.0 % LAB HEMATOLOGY METHOD 09/18/2023 4:27 AM EDT [facility] Neutrophils Absolute 2.12 1.60 - 6.10 10*3/uL LAB HEMATOLOGY METHOD 09/18/2023 4:27 AM EDT [facility] Lymphocytes Absolute 1.71 1.20 - 3.90 10*3/uL LAB HEMATOLOGY METHOD 09/18/2023 4:27 AM EDT [facility] Monocytes Absolute 0.35 0.30 - 0.90 10*3/uL LAB HEMATOLOGY METHOD 09/18/2023 4:27 AM EDT [facility] Eosinophils Absolute 0.32 0.00 - 0.50 10*3/uL LAB HEMATOLOGY METHOD 09/18/2023 4:27 AM EDT [facility] Basophils Absolute 0.06 0.00 - 0.10 10*3/uL LAB HEMATOLOGY METHOD 09/18/2023 4:27 AM EDT [facility] [facility] Immature Granulocytes Absolute 0.00 0.00 - 0.06 10*3/uL LAB HEMATOLOGY METHOD 09/18/2023 4:27 AM EDT [facility] Blood Venous blood specimen / Unknown Venipuncture / Unknown 09/18/2023 3:11 AM EDT 09/18/2023 4:13 AM EDT Narrative [facility] - 09/18/2023 4:27 AM EDT Therapeutic decision making should be based on absolute values, rather than percentages. us Lionel Boss MD LAB BLOOD ORDERABLES Final Result [facility] [address] [place] [id number] * (ABNORMAL) POCT glucose meter (09/17/2023 8:28 PM EDT) POCT Glucose 139(H) 74 - 99 mg/dL 09/17/2023 8:30 PM EDT [facility] Comment:Accuracy of a glucos e result obtained from a capillary whole blood specimen relies upon adequate, non-compromised capillary blood flow. If the capillary glucose result is not consistent with the patient's clinical signs and symptoms, glucose testing should be repeated with either an arterial or venous sample on the glucometer or sent to the main labortory for testing. Comment 09/17/2023 8:30 PM EDT [facility] Engine Research Engineer ID Mandy Arthur 8:30 PM EDT [facility] Device ID [id number] 09/17/2023 8:30 PM EDT [facility] Specimen Type POC Capillary 09/17/2023 8:30 PM EDT [facility] Blood Capillary blood specimen / Unknown 09/17/2023 8:28 PM EDT 09/17/2023 8:30 PM EDT Lionel Boss MD LAB POINT OF CARE TEST DOCKED DEVICE UNSOLICITED RESULTS Final Result Performing Organization Address City/State/[facility] Co de Phone Number [facility] [address] [place] [address] * (ABNORMAL) POCT glucose meter (09/17/2023 5:08 PM EDT) [facility] POCT Glucose 131(H) 74 - 99 mg/dL 09/17/2023 5:10 PM EDT [facility] Comment:Accuracy of a glucos e result obtained from a capillary whole blood specimen relies upon adequate, non-compromised capillary blood flow. If the capillary glucose result is not consistent with the patient's clinical signs and symptoms, glucose testing should be repeated with either an arterial or venous sample on the glucometer or sent to the main labortory for testing. Comment 09/17/2023 5:10 PM EDT [facility] Engine Research Engineer ID Thang Correia 09/17/19 5:10 PM EDT [facility] Device ID [id number] 09/17/2023 5:10 PM EDT [facility] Specimen Type POC Capillary 09/17/2023 5:10 PM EDT [facility] Blood Capillary blood specimen / Unknown 09/17/2023 5:08 PM EDT 09/17/2023 5:10 PM EDT Lionel Boss MD LAB POINT OF CARE TEST DOCKED DEVICE UNSOLICITED RESULTS Final Result [facility] [address] [place] [address] * CT Abdomen Pelvis w IV Contrast (09/17/2023 2:21 PM EDT) Anatomical Region Laterality Modality Abdomen, Pelvis Computed Tomogra phy Impressions 09/17/2023 3:00 PM EDT No acute findings within the abdomen or pelvis CRITICAL RESULT: ?? No. COMMUNICATION: Per this written report. Drafted by Uzair Lord MD on 09/17/2023 2:56 PM Final report signed by Uzair Lord MD on 09/17/2023 3:00 PM Narrative 09/17/2023 3:00 PM EDT CLINICAL INDICATION: Abdominal pain, acute, nonlocalized TECHNIQUE: Multiple axial CT images were obtained from lung bases through pubic symphysis following administration of IV contrast, Omnipaque 300, 100 mL. Delayed images of abdomen and kidneys also obtained. Reformatted images in the coronal and sagittal planes were generated from the axial data set to facilitate diagnostic accuracy. Total DLP (Dose-Length Product): 1045.32 mGy.cm. Please note: The reported value represents the total of one or more individual components during the CT acquisition on this date and at this time, and as such, the same value may appear in more than one CT report depending on the interpreting/reporting physicians. COMPARISON: None. FINDINGS: Lower Chest: Lung bases are clear. Solid Abdominal Organs: Liver contour is smooth. No discrete suspicious focal liver lesions. Absent gallbladder. Unremarkable pancreas and spleen. Unremarkable adrenal glands. No hydronephrosis. No suspicious renal mass. GI Tract/Mesentery/Peritoneum: Large and small bowel appear normal in caliber. No mesenteric mass. Prior appendectomy. Normal appearance of the terminal ileum. Pelvic Viscera: Prior hysterectomy. There is a 3 cm left ovarian cyst, presumably physiologic. Lymph Nodes/Vasculature: No lymphadenopathy by CT size criteria. The aortoiliac vasculature is patent and normal in caliber. Free Fluid:No ascites Musculoskeletal and Body Wall:No clearly aggressive bone lesions Procedure Note Uzair Lord MD - 09/17/2023 CLINICAL INDICATION: Abdominal pain, acute, nonlocalized TECHNIQUE: Multiple axial CT images were obtained from lung bases through pubicsymphysis following administration of IV contrast, Omnipaque 300, 100 mL.Delayed images of abdomen and kidneys also obtained. Reformatted images inthe coronal and sagittal planes were generated from the axial data set tofacilitate diagnostic accuracy. Total DLP (Dose-Length Product): 1045.32 mGy.cm. Please note: The reportedvalue represents the total of one or more individual components during theCT acquisition on this date and at this time, and as such, the same valuemay appear in more than one CT report depending on theinterpreting/reporting physicians. COMPARISON: None. FINDINGS: Lower Chest: Lung bases are clear. Solid Abdominal Organs: Liver contour is smooth. No discrete suspiciousfocal liver lesions. Absent gallbladder. Unremarkable pancreas and spleen.Unremarkable adrenal glands. No hydronephrosis. No suspicious renalmass. GI Tract/Mesentery/Peritoneum: Large and small bowel appear normal incaliber. No mesenteric mass. Prior appendectomy. Normal appearance of theterminal ileum. Pelvic Viscera: Prior hysterectomy. There is a 3 cm left ovarian cyst,presumably physiologic. Lymph Nodes/Vasculature: No lymphadenopathy by CT size criteria. Theaortoiliac vasculature is patent and normal in caliber. Free Fluid:No ascites Musculoskeletal and Body Wall:No clearly aggressive bone lesions IMPRESSION: No acute findings within the abdomen or pelvis CRITICAL RESULT: No. COMMUNICATION: Per this written report. Drafted by Uzair Lord MD on 09/17/2023 2:56 PM Final report signed by Uzair Lord MD on 09/17/2023 3:00 PM Lionel Boss MD IM CT PROCEDURES Final Re sult * (ABNORMAL) POCT glucose meter (09/17/2023 11:48 AM EDT) POCT Glucose 161(H) 74 - 99 mg/dL 09/17/2023 11:50 AM EDT [facility] Comment:Accuracy of a glucos e result obtained from a capillary whole blood specimen relies upon adequate, non-compromised capillary blood flow. If the capillary glucose result is not consistent with the patient's clinical signs and symptoms, glucose testing should be repeated with either an arterial or venous sample on the glucometer or sent to the main labortory for testing. Comment 09/17/2023 11:50 AM EDT [facility] Engine Research Engineer ID Qian Hutton 09/17/2023 11:50 AM EDT [facility] Device ID [id number] 09/17/2023 11:50 AM EDT [facility] Specimen Type POC Capillary 09/17/2023 11:50 AM EDT [facility] Blood Capillary blood specimen / Unknown 09/17/2023 11:48 AM EDT 09/17/2023 11:50 AM EDT us Lionel Boss MD LAB POINT OF CARE TEST DOCKED DEVICE UNSOLICITED RESULTS Final Result [facility] [address] [place] [address] * Urinalysis Microscopic Examination (09/17/2023 11:25 AM EDT) Urine Urine specimen obtained by clean catch procedure / Unknown Non-blood Collection / Unknown 09/17/2023 11:25 AM EDT 09/17/2023 11:30 AM EDT us Lionel Boss MD LAB URINE ORDERABLES Final Result [facility] [address] [place] [address] * (ABNORMAL) Urinalysis with reflex microscopic (Culture NOT Included) (09/17/2023 11:25 AM EDT) Color, Urine Yellow LAB URINALYSIS - AUTOMATED METHOD 09/17/2023 11:38 AM EDT [facility] Clarity, Urine Clear LAB URINALYSIS - AUTOMATED METHOD 09/17/2023 11:38 AM EDT [facility] Spec [place], Urine 1.009 <=1.005 to >=1.030 LAB URINALYSIS - AUTOMATED METHOD 09/17/2023 11:38 AM EDT [facility] pH, Urine 7.5 4.5 to 8 LAB URINALYSIS - AUTOMATED METHOD 09/17/2023 11:[address] [facility] Protein, Urine Negative Negative mg/dL LAB URINALYSIS - AUTOMATED METHOD 09/17/2023 11:38 AM [facility] Glucose, Urine Negative Negative mg/dL LAB URINALYSIS - AUTOMATED METHOD 09/17/2023 11:38 AM [facility] Ketones, Urine Negative Negative mg/dL LAB URINALYSIS - AUTOMATED METHOD 09/17/2023 11:38 AM [facility] Blood, Urine Negative Negative LAB URINALYSIS - AUTOMATED METHOD 09/17/2023 11:38 AM [facility] Bilirubin, Urine Negative Negative LAB URINALYSIS - AUTOMATED METHOD 09/17/2023 11:38 AM [facility] Urobilinogen, Urine 0.2 0.2 to 1.0 mg/dL LAB URINALYSIS - AUTOMATED METHOD 09/17/2023 11:38 AM [facility] Leukocytes, Urine Small(A) Negative LAB URINALYSIS - AUTOMATED METHOD 09/17/2023 11:38 AM [facility] Nitrite, Urine Negative Negative LAB URINALYSIS - AUTOMATED METHOD 09/17/2023 11:38 AM [facility] RBC, Urine <1 0 to 3 /HPF LAB URINALYSIS - AUTOMATED METHOD 09/17/2023 11:38 AM [facility] WBC, Urine 6 - 10(A) 0 to 5 /HPF LAB URINALYSIS - AUTOMATED METHOD 09/17/2023 11:38 AM [facility] Squamous Epithelial Cells 3 - 5 0 to 5 /HPF LAB URINALYSIS - AUTOMATED METHOD 09/17/2023 11:38 AM [facility] Hyaline Casts 0 - 2 0 to 5 /LPF LAB URINALYSIS - AUTOMATED METHOD 09/17/2023 11:38 AM [facility] Bacteria, Urine Negative Negative LAB URINALYSIS - AUTOMATED METHOD 09/17/2023 11:38 AM [facility] Urine Urine specimen obtained by clean catch procedure / Unknown Non-blood Collection / Unknown 09/17/2023 11:25 AM EDT 09/17/2023 11:30 AM EDT us Lionel Boss MD LAB URINE ORDERABLES Final Result [facility] [address] [place] [address] * ECG Adult (09/17/2023 11:12 AM EDT) EKG DIAGNOSIS CLASS Abnormal MUSE ECG Ventricular Rate 90 BPM MUSE ECG Atrial Rate 90 BPM MUSE ECG CO Interval 162 ms MUSE ECG QRSD Interval 84 ms MUSE ECG QT Interval 360 ms MUSE ECG QTC Interval 440 ms MUSE ECG P [place] 38 degrees MUSE ECG R [place] 34 degrees MUSE ECG T Wave [place] 6 degrees MUSE ECG Diagnosis Normal sinus rhythm MUSE ECG Diagnosis Cannot rule out MUSE ECG Diagnosis Anterior infarct MUSE ECG Diagnosis , age undetermined MUSE ECG Diagnosis Abnormal ECG MUSE ECG Diagnosis Confirmed by Jadon Jones ([id number]) on 09/18/2023 12:52:45 PM MUSE ECG 09/17/2023 11:1 2 AM EDT 09/18/2023 12:52 PM EDT Lionel Boss MD ECG ORDERABLES Final Resu lt MUSE ECG * Lipase (09/17/2023 11:06 AM EDT) Lipase, Plasma 39 19 - 63 U/L 09/17/2023 11:39 AM EDT [facility] Blood Venous blood specimen / Unknown Venipuncture / Unknown 09/17/2023 11:06 AM EDT 09/17/2023 11:12 AM EDT Lionel Boss MD LAB BLOOD ORDERABLES Final Result [facility] [address] [place] [address] * (ABNORMAL) Amylase (09/17/2023 11:06 AM EDT) Amylase 25(L) 27 - 114 U/L 09/17/2023 11:39 AM EDT [facility] Blood Venous blood specimen / Unknown Venipuncture / Unknown 09/17/2023 11:06 AM EDT 09/17/2023 11:12 AM EDT Lionel Boss MD LAB BLOOD ORDERABLES Final Result [facility] [address] [place] [address] * (ABNORMAL) POCT glucose meter (09/17/2023 7:26 AM EDT) POCT Glucose 105(H) 74 - 99 mg/dL 09/17/2023 7:28 AM EDT [facility] Comment:Accuracy of a glucos e result obtained from a capillary whole blood specimen relies upon adequate, non-compromised capillary blood flow. If the capillary glucose result is not consistent with the patient's clinical signs and symptoms, glucose testing should be repeated with either an arterial or venous sample on the glucometer or sent to the main labortory for testing. Comment 09/17/2023 7:28 AM EDT [facility] Engine Research Engineer ID Qian Hutton 09/17/2023 7:28 AM EDT [facility] Device ID [id number] 09/17/2023 7:28 AM EDT [facility] Specimen Type POC Capillary 09/17/2023 7:28 AM EDT [facility] Blood Capillary blood specimen / Unknown 09/17/2023 7:26 AM EDT 09/17/2023 7:28 AM EDT Lionel Boss MD LAB POINT OF CARE TEST DOCKED DEVICE UNSOLICITED RESULTS Final Result [facility] [address] [place] [address] * (ABNORMAL) Hemoglobin A1c (09/17/2023 4:59 AM EDT) Hemoglobin A1c 6.3(H) <5.7 % 09/17/2023 5:53 AM EDT [facility] Blood Venous blood [...] Adults <6.0% Children and Adolescents <7.5% Source: ??[place] [employer]. Standards of medical care in diabetes,2017. Diabetes Care.2017:40 (suppl 1):S1-S135. HbA1c assay performed by an ion-exchange chromatography method that is certified traceable to the DCCT. us Lionel Boss MD LAB BLOOD ORDERABLES Final Result Performing Organization Address City/[facility] Co de Phone Number [facility] [address] [place] [address] * Phosphorus (09/17/2023 4:59 AM EDT) Phosphorus, Plasma 3.6 2.5 - 4.5 mg/dL 09/17/2023 6:33 AM EDT [facility] Blood Venous blood specimen / Unknown Venipuncture / Unknown 09/17/2023 4:59 AM EDT 09/17/2023 5:41 AM EDT us Lionel Boss MD LAB BLOOD ORDERABLES Final Result Performing Organization Address City/[facility] Co de Phone Number [facility] [address] [place] [address] * Magnesium (09/17/2023 4:59 AM EDT) Magnesium, Plasma 2.1 1.9 - 2.4 mg/dL 09/17/2023 6:33 AM EDT [facility] Blood Venous blood specimen / Unknown Venipuncture / Unknown 09/17/2023 4:59 AM EDT 09/17/2023 5:41 AM EDT us Lionel Boss MD LAB BLOOD ORDERABLES Final Result Performing Organization Address City/[facility] Co de Phone Number [facility] [address] [place] [address] * (ABNORMAL) Basic metabolic panel (09/17/2023 4:59 AM EDT) Glucose, Plasma 117(H) 74 - 99 mg/dL 09/17/2023 6:33 AM EDT [facility] BUN, Plasma 9 7 - 21 mg/dL 09/17/2023 6:33 AM EDT [facility] Creatinine, Plasma 0.60 0.60 - 1.10 mg/dL 09/17/2023 6:33 AM EDT [facility] BUN/Creatinine Ratio 15 09/17/2023 6:33 AM EDT [facility] Sodium, Plasma 138 136 - 145 mmol/L 09/17/2023 6:33 AM EDT [facility] Potassium, Plasma 4.2 3.7 - 4.8 mmol/L 09/17/2023 6:33 AM EDT [facility] Chloride, Plasma 105 97 - 107 mmol/L 09/17/2023 6:33 AM EDT [facility] CO2, Plasma 20(L) 22 - 29 mmol/L 09/17/2023 6:33 AM EDT [facility] Anion Gap 13 6 - 16 mmol/L 09/17/2023 6:33 AM EDT [facility] Total Calcium, Plasma 8.5(L) 8.9 - 10.2 mg/dL 09/17/2023 6:33 AM EDT [facility] eGFRcr 121.0 mL/min/1.7 3m*2 09/17/2023 6:33 AM EDT [facility] Comment:Reported eGFRcr in m L/min/1.73m2 is based the CKD-EPI 2020 equation that does not use a race coefficient. Blood Venous blood specimen / Unknown Venipuncture / Unknown 09/17/2023 4:59 AM EDT 09/17/2023 5:41 AM EDT us Lionel Boss MD LAB BLOOD ORDERABLES Final Result [facility] [address] [place] [address] * CBC W/O Differential (09/17/2023 4:59 AM EDT) WBC Count 5.00 3.70 - 10.30 10*3/uL LAB HEMATOLOGY METHOD 09/17/2023 5:53 AM EDT [facility] RBC Count 4.20 3.90 - 5.20 10*6/uL LAB HEMATOLOGY METHOD 09/17/2023 5:53 AM EDT [facility] HGB 12.3 11.2 - 15.7 g/dL LAB HEMATOLOGY METHOD 09/17/2023 5:53 AM EDT [facility] HCT 36.1 34.0 - 45.0 % LAB HEMATOLOGY METHOD 09/17/2023 5:53 AM EDT [facility] Platelet Count 291 155 - 369 10*3/uL LAB HEMATOLOGY METHOD 09/17/2023 5:53 AM EDT [facility] MCV 86 79 - 98 fL LAB HEMATOLOGY METHOD 09/17/2023 5:53 AM EDT [facility] MCH 29.3 26.0 - 32.0 pg LAB HEMATOLOGY METHOD 09/17/2023 5:53 AM EDT [facility] MCHC 34.1 30.7 - 35.5 g/dL LAB HEMATOLOGY METHOD 09/17/2023 5:53 AM EDT [facility] RDW 11.8 11.5 - 14.5 % LAB HEMATOLOGY METHOD 09/17/2023 5:53 AM EDT [facility] MPV 10.6 8.8 - 12.5 fL LAB HEMATOLOGY METHOD 09/17/2023 5:53 AM EDT [facility] nRBC 0.0 <=0.0 per 100 WBCs LAB HEMATOLOGY METHOD 09/17/2023 5:53 AM EDT [facility] Blood Venous blood specimen / Unknown Venipuncture / Unknown 09/17/2023 4:59 AM EDT 09/17/2023 5:43 AM EDT Lionel Boss MD LAB BLOOD ORDERABLES Final Result [facility] [address] [place] [address] * (ABNORMAL) POCT glucose meter (09/16/2023 7:46 PM EDT) [facility] POCT Glucose 116(H) 74 - 99 mg/dL 09/16/2023 8:07 PM EDT [facility] Comment:Accuracy of a glucos e result obtained from a capillary whole blood specimen relies upon adequate, non-compromised capillary blood flow. If the capillary glucose result is not consistent with the patient's clinical signs and symptoms, glucose testing should be repeated with either an arterial or venous sample on the glucometer or sent to the main labortory for testing. Comment 09/16/2023 8:07 PM EDT [facility] Engine Research Engineer ID Kerry Kemp 8:07 PM EDT [facility] Device ID [id number] 09/16/2023 8:07 PM EDT [facility] Specimen Type POC Capillary 09/16/2023 8:07 PM EDT [facility] Blood Capillary blood specimen / Unknown 09/16/2023 7:46 PM EDT 09/16/2023 8:07 PM EDT us Lionel Boss MD LAB POINT OF CARE TEST DOCKED DEVICE UNSOLICITED RESULTS Final Result Performing Organization Address City/State/[facility] Co de Phone Number [facility] [address] [place] [address] * (ABNORMAL) POCT glucose meter (09/16/2023 4:35 PM EDT) [facility] POCT Glucose 113(H) 74 - 99 mg/dL 09/16/2023 4:36 PM EDT [facility] Comment:Accuracy of a glucos e result obtained from a capillary whole blood specimen relies upon adequate, non-compromised capillary blood flow. If the capillary glucose result is not consistent with the patient's clinical signs and symptoms, glucose testing should be repeated with either an arterial or venous sample on the glucometer or sent to the main labortory for testing. Comment 09/16/2023 4:36 PM EDT [facility] Engine Research Engineer ID Gianna Vidal 09/16/2023 4:36 PM EDT [facility] Device ID [id number] 09/16/2023 4:36 PM EDT [facility] Specimen Type POC Capillary 09/16/2023 4:36 PM EDT [facility] Blood Capillary blood specimen / Unknown 09/16/2023 4:35 PM EDT 09/16/2023 4:36 PM EDT us Lionel Boss MD LAB POINT OF CARE TEST DOCKED DEVICE UNSOLICITED RESULTS Final Result Performing Organization Address [facility] Co de Phone Number [facility] [address] [place] [address] * (ABNORMAL) POCT glucose meter (09/16/2023 11:54 AM EDT) Pathologist [facility] [place] POCT Glucose 123(H) 74 - 99 mg/dL 09/16/2023 11:56 AM EDT [facility] Comment:Accuracy of a glucos e result obtained from a capillary whole blood specimen relies upon adequate, non-compromised capillary blood flow. If the capillary glucose result is not consistent with the patient's clinical signs and symptoms, glucose testing should be repeated with either an arterial or venous sample on the glucometer or sent to the main labortory for testing. Comment 09/16/2023 11:56 AM EDT [facility] Engine Research Engineer ID Efraín Morales 09/16/19 11:56 AM EDT [facility] Device ID [id number] 09/16/2023 11:56 AM EDT [facility] Specimen Type POC Capillary 09/16/2023 11:56 AM EDT [facility] Blood Capillary blood specimen / Unknown 09/16/2023 11:54 AM EDT 09/16/2023 11:56 AM EDT Result [facility] Boss MD LAB POINT OF CARE TEST DOCKED DEVICE UNSOLICITED RESULTS Final Result Performing Organization Address [facility] Co de Phone Number [facility] [address] [place] [address] * (ABNORMAL) POCT glucose meter (09/16/2023 5:57 AM EDT) Pathologist [facility] POCT Glucose 113(H) 74 - 99 mg/dL 09/16/2023 5:59 AM EDT [facility] Comment:Accuracy of a glucos e result obtained from a capillary whole blood specimen relies upon adequate, non-compromised capillary blood flow. If the capillary glucose result is not consistent with the patient's clinical signs and symptoms, glucose testing should be repeated with either an arterial or venous sample on the glucometer or sent to the main labortory for testing. Comment 09/16/2023 5:59 AM EDT [facility] Engine Research Engineer ID Meliton Cid 09/16/2023 5:59 AM EDT [facility] Device ID [id number] 09/16/2023 5:59 AM EDT [facility] Specimen Type POC Capillary 09/16/2023 5:59 AM EDT [facility] Blood Capillary blood specimen / Unknown 09/16/2023 5:57 AM EDT 09/16/2023 5:59 AM EDT us Lionel Boss MD LAB POINT OF CARE TEST DOCKED DEVICE UNSOLICITED RESULTS Final Result [facility] [address] [place] [address] * Phosphorus, Plasma (09/16/2023 3:51 AM EDT) Phosphorus, Plasma 4.5 2.5 - 4.5 mg/dL 09/16/2023 4:47 AM EDT [facility] Blood Venous blood specimen / Unknown Venipuncture / Unknown 09/16/2023 3:51 AM EDT 09/16/2023 4:16 AM EDT us Lionel Boss MD LAB BLOOD ORDERABLES Final Result Performing Organization Address City/[facility]/ZIP Co de Phone Number [facility] [address] [place] [address] * Magnesium, Plasma (09/16/2023 3:51 AM EDT) Magnesium, Plasma 1.9 1.9 - 2.4 mg/dL 09/16/2023 4:47 AM EDT [facility] Blood Venous blood specimen / Unknown Venipuncture / Unknown 09/16/2023 3:51 AM EDT 09/16/2023 4:16 AM EDT us Lionel Boss MD LAB BLOOD ORDERABLES Final Result Performing Organization Address City/[facility]/ZIP Co de Phone Number [facility] [address] [place] [address] * (ABNORMAL) Comprehensive metabolic panel (09/16/2023 3:51 AM EDT) [facility] Glucose, Plasma 128(H) 74 - 99 mg/dL 09/16/2023 4:47 AM EDT [facility] BUN, Plasma 13 7 - 21 mg/dL 09/16/2023 4:47 AM EDT [facility] Creatinine, Plasma 0.81 0.60 - 1.10 mg/dL 09/16/2023 4:47 AM EDT [facility] BUN/Creatinine Ratio 16 09/16/2023 4:47 AM EDT [facility] Sodium, Plasma 135(L) 136 - 145 mmol/L 09/16/2023 4:47 AM EDT [facility] Potassium, Plasma 4.2 3.7 - 4.8 mmol/L 09/16/2023 4:47 AM EDT [facility] Chloride, Plasma 101 97 - 107 mmol/L 09/16/2023 4:47 AM EDT [facility] CO2, Plasma 21(L) 22 - 29 mmol/L 09/16/2023 4:47 AM EDT [facility] [facility] Anion Gap 13 6 - 16 mmol/L 09/16/2023 4:47 AM EDT [facility] Total Calcium, Plasma 8.9 8.9 - 10.2 mg/dL 09/16/2023 4:47 AM EDT [facility] Total Protein 6.9 6.3 - 7.9 g/dL 09/16/2023 4:47 AM EDT [facility] Albumin, Plasma 4.0 3.5 - 5.2 g/dL 09/16/2023 4:47 AM EDT [facility] AST, Plasma 20 10 - 35 U/L 09/16/2023 4:47 AM EDT [facility] Comment:Hemolyzed, result ma y be falsely increased. ALT, Plasma 21 10 - 35 U/L 09/16/2023 4:47 AM EDT [facility] Alkaline Phosphatase, Plasma 67 35 - 104 U/L 09/16/2023 4:47 AM EDT [facility] Total Bilirubin, Plasma 0.3 0.2 - 1.1 mg/dL 09/16/2023 4:47 AM EDT [facility] eGFRcr 97.8 mL/min/1.7 3m*2 09/16/2023 4:47 AM EDT [facility] Comment:Reported eGFRcr in m L/min/1.73m2 is based the CKD-EPI 2020 equation that does not use a race coefficient. Blood Venous blood specimen / Unknown Venipuncture / Unknown 09/16/2023 3:51 AM EDT 09/16/2023 4:16 AM EDT Lionel Boss MD LAB BLOOD ORDERABLES Final Result [facility] [address] [place] [address] * CBC W/O Differential (09/16/2023 3:51 AM EDT) WBC Count 7.70 3.70 - 10.30 10*3/uL LAB HEMATOLOGY METHOD 09/16/2023 4:10 AM EDT [facility] RBC Count 4.32 3.90 - 5.20 10*6/uL LAB HEMATOLOGY METHOD 09/16/2023 4:10 AM EDT [facility] HGB 12.7 11.2 - 15.7 g/dL LAB HEMATOLOGY METHOD 09/16/2023 4:10 AM EDT [facility] HCT 36.4 34.0 - 45.0 % LAB HEMATOLOGY METHOD 09/16/2023 4:10 AM EDT [facility] Platelet Count 258 155 - 369 10*3/uL LAB HEMATOLOGY METHOD 09/16/2023 4:10 AM EDT [facility] MCV 84 79 - 98 fL LAB HEMATOLOGY METHOD 09/16/2023 4:10 AM EDT [facility] MCH 29.4 26.0 - 32.0 pg LAB HEMATOLOGY METHOD 09/16/2023 4:10 AM EDT [facility] MCHC 34.9 30.7 - 35.5 g/dL LAB HEMATOLOGY METHOD 09/16/2023 4:10 AM EDT [facility] RDW 11.9 11.5 - 14.5 % LAB HEMATOLOGY METHOD 09/16/2023 4:10 AM EDT [facility] MPV 10.5 8.8 - 12.5 fL LAB HEMATOLOGY METHOD 09/16/2023 4:10 AM EDT [facility] nRBC 0.0 <=0.0 per 100 WBCs LAB HEMATOLOGY METHOD 09/16/2023 4:10 AM EDT [facility] Blood Venous blood specimen / Unknown Venipuncture / Unknown 09/16/2023 3:51 AM EDT 09/16/2023 4:08 AM EDT Lionel Boss MD LAB BLOOD ORDERABLES Final Result [facility] [address] [place] [id number] * US Breast Limited Right (09/15/2023 10:12 PM EDT) Anatomical Region Laterality Modality Breast Right Ultrasound Impressions 09/15/2023 10:47 PM EDT Complex collection within the right breast as described above, compatible with phlegmon/abscess. CRITICAL RESULT: ?? No. COMMUNICATION: Per this written report. Drafted by Rome Ayala MD on 09/15/2023 10:44 PM Final report signed by Rome Ayala MD on 09/15/2023 10:47 PM Narrative 09/15/2023 10:47 PM EDT CLINICAL INDICATION: recurrent abscess TECHNIQUE: ?? Focal multiplanar rollins scale survey sonographic imaging of the right breast was performed. COMPARISON: None. FINDINGS: Complex appearing collection containing debris with possible tract to the skin within the soft tissues of the right breast medial and superior to the nipple measuring 5.3 x 3.8 x 2.3 cm. No internal blood flow on Doppler, or significant surrounding hyperemia. Procedure Note Rome Ayala MD - 09/15/2023 CLINICAL INDICATION: recurrent abscess TECHNIQUE: Focal multiplanar rollins scale survey sonographic imaging of the rightbreast was performed. COMPARISON: None. FINDINGS: Complex appearing collection containing debris with possible tract to theskin within the soft tissues of the right breast medial and superior tothe nipple measuring 5.3 x 3.8 x 2.3 cm. No internal blood flow onDoppler, or significant surrounding hyperemia. IMPRESSION: Complex collection within the right breast as described above, compatiblewith phlegmon/abscess. CRITICAL RESULT: No. COMMUNICATION: Per this written report. Drafted by Rome Ayala MD on 09/15/2023 10:44 PM Final report signed by Rome Ayala MD on 09/15/2023 10:47 PM Tomi Aguirre MD IMG BI PROCEDURES Final Resul t * Sed rate, automated (09/15/2023 9:42 PM EDT) [facility] Sedimentation Rate 8 <20 mm/hr 2023 12:15 AM EDT [facility] Blood Venous blood specimen / Unknown Venipuncture / Unknown 09/15/2023 9:42 PM EDT 09/15/2023 9:48 PM EDT Aki Mondragon MD LAB BLOOD ORDERABLES Final Result Performing Organization Address [facility] Co de Phone Number [facility] [address] [place] [address] * C-reactive protein (09/15/2023 9:42 PM EDT) [facility] CRP, Plasma 3.9 <=8.0 mg/L 09/16/2023 12:33 AM EDT [facility] Blood Venous blood specimen / Unknown Venipuncture / Unknown 09/15/2023 9:42 PM EDT 09/15/2023 9:48 PM EDT Narrative [facility] - 09/16/2023 12:33 AM EDT This CRP test is appropriate for assessment of infection, systemic inflammation and/or tissue injury. To assess cardiovascular disease risk order high sensitivity CRP (CRPH). Aki Mondragon MD LAB BLOOD ORDERABLES Final Result Performing Organization Address City/[facility]/ZIP Co de Phone Number [facility] [address] [place] [address] * ED HIV 1/2 Antibody/Antigen Screen w/Reflex to HIV 1/2 Differentiation (09/15/2023 9:42 PM EDT) [facility] HIV 1 & 2 Antibody/Antigen Screen Non Reactive Non Reactive 09/15/2023 10:48 PM EDT [facility] Comment:Screening for HIV 1 & 2 antibodies, and P24 antigen is NONREACTIVE. No confirmatory testing is required. Blood Venous blood specimen / Unknown Venipuncture / Unknown 09/15/2023 9:42 PM EDT 09/15/2023 9:55 PM EDT Tomi Aguirre MD LAB BLOOD ORDERABLES Final Re sult [facility] [address] [place] [address] * Hepatitis C Antibody - ED (09/15/2023 9:42 PM EDT) Pathologist [facility] [place] Hepatitis C Antibody Negative Negative 09/15/2023 10:48 PM EDT [facility] Blood Venous blood specimen / Unknown Venipuncture / Unknown 09/15/2023 9:42 PM EDT 09/15/2023 9:55 PM EDT Tomi Aguirre MD LAB BLOOD ORDERABLES Final Re sult Performing Organization Address [facility] Co de Phone Number [facility] [address] [place] [address] * (ABNORMAL) CBC (09/15/2023 9:42 PM EDT) [facility] WBC Count 8.83 3.70 - 10.30 10*3/uL LAB HEMATOLOGY METHOD 09/15/2023 9:51 PM EDT [facility] RBC Count 4.61 3.90 - 5.20 10*6/uL LAB HEMATOLOGY METHOD 09/15/2023 9:51 PM EDT [facility] HGB 13.8 11.2 - 15.7 g/dL LAB HEMATOLOGY METHOD 09/15/2023 9:51 PM EDT [facility] HCT 38.3 34.0 - 45.0 % LAB HEMATOLOGY METHOD 09/15/2023 9:51 PM EDT [facility] Platelet Count 317 155 - 369 10*3/uL LAB HEMATOLOGY METHOD 09/15/2023 9:51 PM EDT [facility] MCV 83 79 - 98 fL LAB HEMATOLOGY METHOD 09/15/2023 9:51 PM EDT [facility] MCH 29.9 26.0 - 32.0 pg LAB HEMATOLOGY METHOD 09/15/2023 9:51 PM EDT [facility] MCHC 36.0(H) 30.7 - 35.5 g/dL LAB HEMATOLOGY METHOD 09/15/2023 9:51 PM EDT [facility] RDW 11.8 11.5 - 14.5 % LAB HEMATOLOGY METHOD 09/15/2023 9:51 PM EDT [facility] MPV 10.4 8.8 - 12.5 fL LAB HEMATOLOGY METHOD 09/15/2023 9:51 PM EDT [facility] nRBC 0.0 <=0.0 per 100 WBCs LAB HEMATOLOGY METHOD 09/15/2023 9:51 PM EDT [facility] Blood Venous blood specimen / Unknown Venipuncture / Unknown 09/15/2023 9:42 PM EDT 09/15/2023 9:48 PM EDT us Tomi Aguirre MD LAB BLOOD ORDERABLES Final Re sult [facility] [address] [place] [address] * (ABNORMAL) BMP (09/15/2023 9:42 PM EDT) Glucose, Plasma 130(H) 74 - 99 mg/dL 09/15/2023 10:10 PM EDT [facility] BUN, Plasma 9 7 - 21 mg/dL 09/15/2023 10:10 PM EDT [facility] Creatinine, Plasma 0.96 0.60 - 1.10 mg/dL 09/15/2023 10:10 PM EDT [facility] BUN/Creatinine Ratio 9 09/15/2023 10:10 PM EDT [facility] Sodium, Plasma 136 136 - 145 mmol/L 09/15/2023 10:10 PM EDT [facility] Potassium, Plasma 4.1 3.7 - 4.8 mmol/L 09/15/2023 10:10 PM EDT [facility] Chloride, Plasma 100 97 - 107 mmol/L 09/15/2023 10:10 PM EDT [facility] CO2, Plasma 24 22 - 29 mmol/L 09/15/2023 10:10 PM EDT [facility] Anion Gap 12 6 - 16 mmol/L 09/15/2023 10:10 PM EDT [facility] Total Calcium, Plasma 9.5 8.9 - 10.2 mg/dL 09/15/2023 10:10 PM EDT [facility] eGFRcr 79.8 mL/min/1.7 3m*2 09/15/2023 10:10 PM EDT [facility] Comment:Reported eGFRcr in m L/min/1.73m2 is based the CKD-EPI 2020 equation that does not use a race coefficient. Blood Venous blood specimen / Unknown Venipuncture / Unknown 09/15/2023 9:42 PM EDT 09/15/2023 9:48 PM EDT us Tomi Aguirre MD LAB BLOOD ORDERABLES Final Re sult [facility] [address] [place] [address] documented in this encounter Visit Diagnoses Diagnosis Breast abscess- Primary Inflammatory disease of breast Breast abscess Inflammatory disease of breast Class III obesity with body mass index (BMI) of 40.0 or higher (CMS/[facility]) documented in this encounter Admitting Diagnoses Diagnosis Breast abscess Inflammatory disease of breast documented in this encounter Administered Medications Inactive Administered Medications - up to 3 most recent administrations Medication Order MAR Action Action Date Dose Rate Site acetaminophen (Tylenol) tablet 1,000 mg 1,000 mg, Oral, Every 6 hours scheduled, First dose on 09/16/23 at 0600, Until Discontinued, Routine Given 09/18/2023 5:24 PM EDT 1,000 mg Given 09/18/2023 12:04 PM EDT 1,000 mg Given 09/18/2023 6:11 AM EDT 1,000 mg cariprazine (Vraylar) capsule 3 mg 3 mg, Oral, Nightly, First dose on 09/16/23 at 2100, Until Discontinued, Routine Given 09/18/2023 9:18 PM EDT 3 mg Given 09/17/2023 9:40 PM EDT 3 mg Given 09/16/2023 9:34 PM EDT 3 mg dextrose 10 % (D10W) bolus 125 mL 125 mL (12.5 g), Intravenous, Every 15 min PRN, Starting on 09/16/23 at 0311, Until 09/19/23 at 1213, Administer over 15 Minutes, Routine, POC BG 71 to 89 mg/dL dextrose 10 % (D10W) bolus 125 mL 125 mL (12.5 g), Intravenous, Every 15 min PRN, Starting on 09/16/23 at 0311, Until 09/19/23 at 1213, Administer over 15 Minutes, Routine, POC BG 51 to 70 mg/dL dextrose 10 % (D10W) bolus 250 mL 250 mL (25 g), Intravenous, Every 15 min PRN, Starting on 09/16/23 at 0311, Until 09/19/23 at 1213, Administer over 15 Minutes, Routine, POC BG is less than or equal to 50 mg/dL dextrose 5 % and lactated Ringer's infusion 42 mL/hr, Intravenous, Continuous, Starting on 09/16/23 at 0315, Until [place] 09/17/23 at 0553, Routine Rate/Dose Change 09/16/2023 10:03 AM EDT 42 mL/hr 42 mL/hr New Bag 09/16/2023 4:38 AM EDT 100 mL/hr 100 mL/hr dextrose 5 % and lactated Ringer's infusion 50 mL/hr, Intravenous, Continuous, Starting on [place] 09/17/23 at 1100, Until Mon09/18/23 at 0733, Routine New Bag 09/17/2023 11:06 AM EDT 50 mL/hr 50 mL/hr enoxaparin (Lovenox) syringe 40 mg 40 mg, Subcutaneous, Daily, First dose on 09/16/23 at 0900, Until Discontinued, Routine Given 09/19/2023 7:56 AM EDT 40 mg Left Lower Abdomen Given 09/18/2023 8:10 AM EDT 40 mg Le ft Lower Abdomen Given 09/17/2023 8:34 AM EDT 40 mg Ri ght Lower Abdomen glucagon (human recombinant) injection 1 mg 1 mg, Intramuscular, Every 15 min PRN, Starting on 09/16/23 at 0311, Until 09/19/23 at 1213, Routine, If patient NPO, lacks IV access, May Give IM and POC BG less than or equal to 70 mg/dL, glucose (Glutose) 40 % oral gel 15 grams of glucose 15 grams of glucose, Sublingual, Every 15 min PRN, Starting on 09/16/23 at 0311, Until 09/19/23 at 1213, Routine, low blood sugar, POC BG 71 to 89 mg/dL glucose (Glutose) 40 % oral gel 15 grams of glucose 15 grams of glucose, Sublingual, Every 15 min PRN, Starting on Mon09/16/23 at 0311, Until Mon09/19/23 at 1213, Routine, low blood sugar, BG 51?to 70 mg/dL glucose (Glutose) 40 % oral gel 30 grams of glucose 30 grams of glucose, Sublingual, Every 15 min PRN, Starting on Mon09/16/23 at 0311, Until Mon09/19/23 at 1213, Routine, low blood sugar, POC BG is less than or equal to 50 mg/dL ibuprofen tablet 400 mg 400 mg, Oral, Every 6 hours PRN, Starting on Mon09/16/23 at 0900, Until Mon09/16/23 at 1849, Routine, mild pain, moderate pain Given 09/16/2023 10:11 AM EDT 400 mg ibuprofen tablet 600 mg 600 mg, Oral, Every 6 hours, First dose on Mon09/16/23 at 1900, Until Discontinued, Routine Given 09/18/2023 8:09 AM EDT 600 mg Given 09/18/2023 2:31 AM EDT 600 mg Given 09/17/2023 8:59 PM EDT 600 mg ibuprofen tablet 800 mg 800 mg, Oral, Every 8 hours scheduled, First dose (after last modification) on Mon09/18/23 at 1400, Until Discontinued, Routine Given 09/18/2023 9:15 PM EDT 800 mg Given 09/18/2023 2:22 PM EDT 800 mg insulin lispro (Admelog) 100 units/mL injection - Correction - Standard Dose 0-5 Units, Subcutaneous, 3 times daily with meals, First dose on Mon09/19/23 at 0830, Until Discontinued, Routine insulin lispro (Admelog) injection - Correction - Nighttime Dose 0-3 Units, Subcutaneous, 2 times nightly (2100 & 0300), First dose on Mon09/19/23 at 2100, Until Discontinued, Routine iohexol (OMNIPaque) 300 MG/ML injection 100 mL 100 mL, Intravenous, Once in imaging, 1 dose, Starting on 09/17/23 at 1412, Until Mon09/17/23 at 1413, Routine, Imaging Protocol Orders Given 09/17/2023 2:13 PM EDT 100 mL ketorolac (Toradol) injection 15 mg 15 mg, Intravenous, Once, 1 dose, On Mon09/15/23 at 2320, STAT Given 09/15/2023 11:27 PM EDT 15 mg ketorolac (Toradol) injection 15 mg 15 mg, Intravenous, Once, 1 dose, On Mon09/16/23 at 0240, STAT Given 09/16/2023 2:51 AM EDT 15 mg lamoTRIgine (LaMICtal) tablet 100 mg 100 mg, Oral, Daily, First dose on 09/16/23 at 0900, Until Discontinued, Routine Given 09/16/2023 10:0 3 AM EDT 100 mg lamoTRIgine (LaMICtal) tablet 200 mg 200 mg, Oral, Daily, First dose (after last modification) on 09/17/23 at 0900, Until Discontinued, Routine Given 09/19/2023 7:55 AM EDT 200 mg Given 09/18/2023 8:09 AM EDT 200 mg Given 09/17/2023 8:33 AM EDT 200 mg lidocaine (Lidoderm) 5 % patch 1 patch 1 patch, Apply externally, Every 24 hours, First dose on [place] 09/17/23 at 2030, Until Discontinued, Administer over 12 Hours, Routine Medication Applied 09/18/2023 9:19 PM EDT 1 patch Chest Medication Applied 09/17/2023 9:01 PM EDT 1 patch Chest lidocaine (Xylocaine) 1 % injection 10 mL 10 mL, Infiltration, Once, 1 dose, On Mon09/18/23 at 0800, Routine Given 09/18/2023 8:10 AM EDT 10 mL metoclopramide (Reglan) injection 10 mg 10 mg, Intravenous, Every 6 hours PRN, Starting on Mon09/18/23 at 0901, Until Mon09/19/23 at 1213, Routine, nausea, vomiting Given 09/19/2023 7:55 AM EDT 1 0 mg Given 09/18/2023 4:41 PM EDT 10 mg Given 09/18/2023 9:24 AM EDT 10 mg metoclopramide (Reglan) tablet 10 mg 10 mg, Oral, Every 6 hours PRN, Starting on Mon09/18/23 at 0901, Until Mon09/19/23 at 1213, Routine, nausea, vomiting morphine PF 4 mg 4 mg, Intravenous, Once, 1 dose, On Mon09/15/23 at 2135, STAT Given 09/15/2023 9:45 PM EDT 4 mg morphine PF 4 mg 4 mg, Intravenous, Once, 1 dose, On 09/16/23 at 0040, STAT Given 09/16/2023 12:42 AM EDT 4 mg ondansetron (Zofran) injection 4 mg 4 mg, Intravenous, Once, 1 dose, On Mon09/15/23 at 2320, STAT Given 09/15/2023 11:27 PM EDT 4 mg ondansetron (Zofran) injection 4 mg 4 mg, Intravenous, Every 6 hours PRN, Starting on Mon09/16/23 at 0313, Until Mon09/16/23 at 1713, Routine, vomiting, nausea Given 09/16/2023 11:50 AM EDT 4 mg oxyCODONE (Roxicodone) immediate release tablet 5 mg 5 mg, Oral, Once, 1 dose, On Mon09/16/23 at 0240, STAT Given 09/16/2023 2:51 AM EDT 5 mg oxyCODONE (Roxicodone) immediate release tablet 5 mg 5 mg, Oral, Every 6 hours PRN, Starting on Mon09/16/23 at 0900, Until Mon09/18/23 at 1039, Routine, moderate pain, severe pain Given 09/18/2023 9:24 AM EDT 5 mg Given 09/17/2023 2:41 PM EDT 5 mg Given 09/17/2023 8:40 AM EDT 5 mg pantoprazole (Protonix) EC tablet 40 mg 40 mg, Oral, Daily, First dose on Mon09/17/23 at 0900, Until Discontinued, Routine Given 09/19/2023 7:55 AM EDT 40 mg Given 09/18/2023 8:09 AM EDT 40 mg Given 09/17/2023 8:33 AM EDT 40 mg polyethylene glycol (Miralax) packet 17 g 17 g, Oral, Daily, First dose on 09/18/23 at 1700, Until Discontinued, Routine Given 09/19/2023 7:56 AM EDT 17 g Given 09/18/2023 5:24 PM EDT 17 g prochlorperazine (Compazine) injection 10 mg 10 mg, Intravenous, Once, 1 dose, On Mon09/16/23 at 0240, STAT Given 09/16/2023 2:51 AM EDT 10 mg prochlorperazine (Compazine) tablet 5 mg 5 mg, Oral, Every 6 hours PRN, Starting on Mon09/16/23 at 1712, Until Mon09/19/23 at 1213, Routine, nausea, vomiting Given 09/18/2023 12:04 PM EDT 5 mg Given 09/18/2023 6:11 AM EDT 5 mg Given 09/17/2023 9:01 PM EDT 5 mg propranolol (Inderal) tablet 20 mg 20 mg, Oral, 2 times daily, First dose on Mon09/16/23 at 1255, Until Discontinued, Routine Given 09/19/2023 7:56 AM EDT 20 mg Given 09/18/2023 9:18 PM EDT 20 mg Given 09/18/2023 8:10 AM EDT 20 mg senna-docusate (Loretta-Colace) 8.6-50 MG per tablet 1 tablet 1 tablet, Oral, 2 times daily, First dose on Mon09/18/23 at 2100, Until Discontinued, Routine Given 09/19/2023 7:55 AM EDT 1 tablet Given 09/18/2023 9:18 PM EDT 1 tablet sulfamethoxazole-trimethoprim (Bactrim DS) 800-160 MG per tablet 2 tablet 2 tablet, Oral, 2 times daily, 20 doses, First dose on Mon09/19/23 at 0900, Last dose on Mon09/28/23 at 2100, Routine Given 09/19/2023 7:55 AM EDT 2 tablets Vancomycin HCl in NaCl (Vancocin) IVPB 1,000 mg 1,000 mg, Intravenous, Every 8 hours, First dose (after last modification) on Mon09/18/23 at 1200, Until Discontinued, at 250 mL/hr, Routine Given 09/19/2023 4:07 AM EDT 1,000 mg 250 mL/hr Given 09/18/2023 9:18 PM EDT 1,000 mg 250 mL/hr Given 09/18/2023 12:04 PM EDT 1,000 mg 250 mL/hr vancomycin in NS (Vancocin) IVPB 1,500 mg 1,500 mg, Intravenous, Every 12 hours, First dose on 09/16/23 at 1600, Until Discontinued, at 166.7 mL/hr, Routine New Bag 09/17/2023 3:00 AM EDT 1,500 mg 166.7 mL/hr New Bag 09/16/2023 4:29 PM EDT 1,500 mg 166.7 mL/hr vancomycin in NS (Vancocin) IVPB 1,500 mg 1,500 mg, Intravenous, Every 12 hours, First dose on 09/17/23 at 1500, Until Discontinued, at 166.7 mL/hr, Routine New Bag 09/18/2023 3:32 AM EDT 1,500 mg 166.7 mL/hr New Bag 09/17/2023 3:44 PM EDT 1,500 mg 166.7 mL/hr vancomycin IVPB 2500 mg in 500 mL NS 2,500 mg, Intravenous, Once, 1 dose, On 09/16/23 at 0345, at 230 mL/hr, STAT Given 09/16/2023 4:38 AM EDT 2,500 mg 230 mL/hr documented in this encounter Active and Recently Administered Medications Times are shown in EDT. Scheduled Medication Order 09/17/2023 09/18/2023 09/19/2023 acetaminophen (Tylenol) tablet 1,000 mg 1,000 mg, Oral, Every 6 hours scheduled, First dose on 09/16/23 at 0600, Until Discontinued, Routine 0603 (Not Given - Provider: Kaylie Rivera - Reason: Patient/family refused)1200 (Given - Provider: Clara Murrell RN)1817 (Given - Provider: Clara Murrell RN)2343 (Given - Provider: Gin Pink RN) 0611 (Given - Provider: Gin Pink RN)1204 (Given - Provider: Latanya Olivier, RADHA)1724 (Given - Provider: Latanya Olivier RN) 0000 (Not Given - Provider: Pam Reddy RN - Reason: Patient/family refused)0610 (Not Given - Provider: Pam Reddy RN - Reason: Patient/family refused)1200 (Canceled Entry - Provider: Automatic Discharge Provider - Comment: Automatically canceled at discontinue of medication order) cariprazine (Vraylar) capsule 3 mg 3 mg, Oral, Nightly, First dose on Mon09/16/23 at 2100, Until Discontinued, Routine 2140 (Given - Provider: Gin Pink RN) 2118 (Given - Provider: Pam Reddy RN) enoxaparin (Lovenox) syringe 40 mg 40 mg, Subcutaneous, Daily, First dose on Mon09/16/23 at 0900, Until Discontinued, Routine 0834 (Given - Provider: Clara Murrell RN) 0810 (Given - Provider: Latanya Olivier, RADHA) 0756 (Given - Provider: Latanya Olivier, RADHA) ibuprofen tablet 600 mg (CANCELED) 600 mg, Oral, Every 6 hours, First dose on Mon09/16/23 at 1900, Until Discontinued, Routine 0046 (Given - Provider: Kaylie Rivera)0603 (Not Given - Provider: Kaylie Rivera - Reason: Patient/family refused)1438 (Given - Provider: Clara Murrell RN)2059 (Given - Provider: Gin Pink RN) 0231 (Given - Provider: Gin Pink RN)0809 (Given - Provider: Latanya Olivier RN) ibuprofen tablet 800 mg 800 mg, Oral, Every 8 hours scheduled, First dose (after last modification) on Mon09/18/23 at 1400, Until Discontinued, Routine 1422 (Given - Provider: Latanya Olivier RN)2115 (Given - Provider: Pam Reddy RN) 0618 (Not Given - Provider: Pam Reddy RN - Reason: Patient/family refused) insulin lispro (Admelog) 100 units/mL injection - Correction - Standard Dose 0-5 Units, Subcutaneous, 3 times daily with meals, First dose on Mon09/19/23 at 0830, Until Discontinued, Routine 0807 (Not Given - Provider: Latanya Olivier RN - Reason: Order parameters not met) insulin lispro (Admelog) injection - Correction - Nighttime Dose 0-3 Units, Subcutaneous, 2 times nightly (2100 & 0300), First dose on Mon09/19/23 at 2100, Until Discontinued, Routine iohexol (OMNIPaque) 300 MG/ML injection 100 mL (COMPLETED) 100 mL, Intravenous, Once in imaging, 1 dose, Starting on Mon09/17/23 at 1412, Until Mon09/17/23 at 1413, Routine, Imaging Protocol Orders 1413 (Given - Provider: Jay Dexter) lamoTRIgine (LaMICtal) tablet 200 mg 200 mg, Oral, Daily, First dose (after last modification) on Mon09/17/23 at 0900, Until Discontinued, Routine 0833 (Given - Provider: Clara Murrell RN) 0809 (Given - Provider: Latanya Olivier RN) 0755 (Given - Provider: Latanya Olivier, RN) lidocaine (Lidoderm) 5 % patch 1 patch 1 patch, Apply externally, Every 24 hours, First dose on Mon09/17/23 at 2030, Until Discontinued, Administer over 12 Hours, Routine 2100 (Medication Applied - Provider: Gin Pink RN) 08 (Medication Removed - Provider: Latanya Olivier, RN)2118 (Medication Applied - Provider: Pam Reddy RN) 08 (Medication Removed - Provider: Latanya Olivier RN) lidocaine (Xylocaine) 1 % injection 10 mL (COMPLETED) 10 mL, Infiltration, Once, 1 dose, On Mon09/18/23 at 0800, Routine 0810 (Given - Provider: Latanya Olivier RN) oxyCODONE (Roxicodone) immediate release tablet 5 mg 5 mg, Oral, Once, 1 dose, On Mon09/18/23 at 2245, Routine 2245 (Canceled Entry - Provider: Automatic Discharge Provider - Comment: Automatically canceled at discontinue of medication order) pantoprazole (Protonix) EC tablet 40 mg 40 mg, Oral, Daily, First dose on Mon09/17/23 at 0900, Until Discontinued, Routine 0833 (Given - Provider: Clara Murrell RN) 08 (Given - Provider: Latanya Olivier RN) 0755 (Given - Provider: Latanya Olivier, RADHA) polyethylene glycol (Miralax) packet 17 g 17 g, Oral, Daily, First dose on Mon09/18/23 at 1700, Until Discontinued, Routine 1724 (Given - Provider: Latanya Olivier, RADHA) 0756 (Given - Provider: Latanya Olivier RN) propranolol (Inderal) tablet 20 mg 20 mg, Oral, 2 times daily, First dose on Mon09/16/23 at 1255, Until Discontinued, Routine 0833 (Given - Provider: Clara Murrell RN)214 (Given - Provider: Gin Pink RN) 08 (Given - Provider: Latanya Olivier RN)2117 (Given - Provider: Pam Reddy RN) 075 (Given - Provider: Latanya Olivier RN) senna-docusate (Loretta-Colace) 8.6-50 MG per tablet 1 tablet 1 tablet, Oral, 2 times daily, First dose on Mon09/18/23 at 2100, Until Discontinued, Routine 2117 (Given - Provider: Pam Reddy RN) 075 (Given - Provider: Latanya Olivier RN) sulfamethoxazole-tri methoprim (Bactrim DS) 800-160 MG per tablet 2 tablet 2 tablet, Oral, 2 times daily, 20 doses, First dose on Mon09/19/23 at 0900, Last dose on Mon09/28/23 at 2100, Routine 0755 (Given - Provider: Latanya Olivier RN) Vancomycin HCl in NaCl (Vancocin) IVPB 1,000 mg (CANCELED) 1,000 mg, Intravenous, Every 8 hours, First dose (after last modification) on Mon09/18/23 at 1200, Until Discontinued, at 250 mL/hr, Routine 1204 (Given - Provider: Latanya Olivier RN)211 (Given - Provider: Pam Reddy RN) 0407 (Given - Provider: Pam Reddy RN) vancomycin in NS (Vancocin) IVPB 1,500 mg (CANCELED) 1,500 mg, Intravenous, Every 12 hours, First dose on Mon09/16/23 at 1600, Until Discontinued, at 166.7 mL/hr, Routine 0300 (New Bag - Provider: Kaylie Rivera) vancomycin in NS (Vancocin) IVPB 1,500 mg (CANCELED) 1,500 mg, Intravenous, Every 12 hours, First dose on Mon09/17/23 at 1500, Until Discontinued, at 166.7 mL/hr, Routine 1544 (New Bag - Provider: Clara D Handy, RN) 0332 (New Bag - Provider: Gin Pink RN) Continuous Medication Order 09/17/2023 09/18/2023 09/19/2023 dextrose 5 % and lactated Ringer's infusion (CANCELED) 50 mL/hr, Intravenous, Continuous, Starting on 09/17/23 at 1100, Until 09/18/23 at 0733, Routine 1106 (New Bag - Provider: Clara Murrell RN) 0800 (Stopped - Provider: Latanya Olivier RN) PRN Medication Order 09/17/2023 09/18/2023 09/19/2023 dextrose 10 % (D10W) bolus 125 mL(Linked Group 1) 125 mL (12.5 g), Intravenous, Every 15 min PRN, Starting on 09/16/23 at 0311, Until 09/19/23 at 1213, Administer over 15 Minutes, Routine, POC BG 71 to 89 mg/dL dextrose 10 % (D10W) bolus 125 mL(Linked Group 2) 125 mL (12.5 g), Intravenous, Every 15 min PRN, Starting on 09/16/23 at 0311, Until 09/19/23 at 1213, Administer over 15 Minutes, Routine, POC BG 51 to 70 mg/dL dextrose 10 % (D10W) bolus 250 mL(Linked Group 3) 250 mL (25 g), Intravenous, Every 15 min PRN, Starting on 09/16/23 at 0311, Until 09/19/23 at 1213, Administer over 15 Minutes, Routine, POC BG is less than or equal to 50 mg/dL glucagon (human recombinant) injection 1 mg 1 mg, Intramuscular, Every 15 min PRN, Starting on 09/16/23 at 0311, Until 09/19/23 at 1213, Routine, If patient NPO, lacks IV access, May Give IM and POC BG less than or equal to 70 mg/dL, glucose (Glutose) 40 % oral gel 15 grams of glucose(Linked Group 1) 15 grams of glucose, Sublingual, Every 15 min PRN, Starting on 09/16/23 at 0311, Until 09/19/23 at 1213, Routine, low blood sugar, POC BG 71 to 89 mg/dL glucose (Glutose) 40 % oral gel 15 grams of glucose(Linked Group 2) 15 grams of glucose, Sublingual, Every 15 min PRN, Starting on Mon09/16/23 at 0311, Until Mon09/19/23 at 1213, Routine, low blood sugar, BG 51?to 70 mg/dL glucose (Glutose) 40 % oral gel 30 grams of glucose(Linked Group 3) 30 grams of glucose, Sublingual, Every 15 min PRN, Starting on Mon09/16/23 at 0311, Until Mon09/19/23 at 1213, Routine, low blood sugar, POC BG is less than or equal to 50 mg/dL metoclopramide (Reglan) injection 10 mg(Linked Group 4) 10 mg, Intravenous, Every 6 hours PRN, Starting on Mon09/18/23 at 0901, Until Mon09/19/23 at 1213, Routine, nausea, vomiting 0924 (Given - Provider: Latanya Olivier RN)1641 (Given - Provider: Latanya Olivier RN) 0755 (Given - Provider: Latanya Olivier RN) metoclopramide (Reglan) tablet 10 mg(Linked Group 4) 10 mg, Oral, Every 6 hours PRN, Starting on Mon09/18/23 at 0901, Until Mon09/19/23 at 1213, Routine, nausea, vomiting 0924 (See Alternative - Provider: Latanya Olivier RN)1641 (See Alternative - Provider: Latanya Olivier RN) 0755 (See Alternative - Provider: Latanya Olivier RN) oxyCODONE (Roxicodone) immediate release tablet 5 mg (CANCELED) 5 mg, Oral, Every 6 hours PRN, Starting on Mon09/16/23 at 0900, Until Mon09/18/23 at 1039, Routine, moderate pain, severe pain 0840 (Given - Provider: Clara Murrell RN)1441 (Given - Provider: Clara Murrell RN) 0924 (Given - Provider: Latanya Olivier RN) prochlorperazine (Compazine) tablet 5 mg 5 mg, Oral, Every 6 hours PRN, Starting on Mon09/16/23 at 1712, Until Mon09/19/23 at 1213, Routine, nausea, vomiting 0050 (Given - Provider: Kaylie Rivera)0840 (Given - Provider: Clara Murrell, RN)1554 (Given - Provider: Clara Murrell, RN)2101 (Given - Provider: Gin Pink, RN) 0611 (Given - Provider: Gin Pink, RN)1204 (Given - Provider: Latanya Olivier RN) Linked Groups Order Group 1: glucose (Glutose) 40 % oral gel 15 grams of glucoseJump to med 15 grams of glucose, Sublingual, Every 15 min PRN, Starting on 09/16/23 at 0311, Until Tu09/19/23 at 1213, Routine, low blood sugar, POC BG 71 to 89 mg/dL Or dextrose 10 % (D10W) bolus 125 mLJump to med 125 mL (12.5 g), Intravenous, Every 15 min PRN, Starting on 09/16/23 at 0311, Until 09/19/23 at 1213, Administer over 15 Minutes, Routine, POC BG 71 to 89 mg/dL Group 2: glucose (Glutose) 40 % oral gel 15 grams of glucoseJump to med 15 grams of glucose, Sublingual, Every 15 min PRN, Starting on 09/16/23 at 0311, Until Tu09/19/23 at 1213, Routine, low blood sugar, BG 51?to 70 mg/dL Or dextrose 10 % (D10W) bolus 125 mLJump to med 125 mL (12.5 g), Intravenous, Every 15 min PRN, Starting on 09/16/23 at 0311, Until Tu09/19/23 at 1213, Administer over 15 Minutes, Routine, POC BG 51 to 70 mg/dL Group 3: dextrose 10 % (D10W) bolus 250 mLJump to med 250 mL (25 g), Intravenous, Every 15 min PRN, Starting on 09/16/23 at 0311, Until Tu09/19/23 at 1213, Administer over 15 Minutes, Routine, POC BG is less than or equal to 50 mg/dL Or glucose (Glutose) 40 % oral gel 30 grams of glucoseJump to med 30 grams of glucose, Sublingual, Every 15 min PRN, Starting on 09/16/23 at 0311, Until Mon09/19/23 at 1213, Routine, low blood sugar, POC BG is less than or equal to 50 mg/dL Group 4: metoclopramide (Reglan) tablet 10 mgJump to med 10 mg, Oral, Every 6 hours PRN, Starting on Mon09/18/23 at 0901, Until Mon09/19/23 at 1213, Routine, nausea, vomiting Or metoclopramide (Reglan) injection 10 mgJump to med 10 mg, Intravenous, Every 6 hours PRN, Starting on Mon09/18/23 at 0901, Until Mon09/19/23 at 1213, Routine, nausea, vomiting documented in this encounter Additional Health Concerns Assessment Noted Time A fall risk assessment has been complete d for the patient 09/11/2023 1:44 PM EDT A Body Mass Index follow-up plan has been documented for the patient 09/19/2023 9:28 AM EDT documented as of this encounter Care Teams Alarm Security Or Surveillance Monitor Relationship Specialty Start Date End Date Joyce Shaw, TERESA [address] [place] [address] PCP - General 09/11/23 documented as of this encounter
--- OUTSIDE RECORDS SUMMARY | 2024-01-11 19:07 | XMS_ITS | Encounter Summary ---
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 [employer] Ultra Test test strip 4 Ozempic, 0.25 [...] Description 01/12/2024 9:30 AM EST Office Visit [facility] [address], [address] [place] [address] Sean Rod MD [address] [place] [address] 01/16/2024 9:30 AM EST Office Visit [facility] [address] [facility], 2nd [place] [address] Giana Mays MD [address] [facility] Joaquina Guzman [address] [address] 03/05/2024 8:00 AM EST Appointment [facility] Breast [facility] [address] Joaquina Guzman [facility] 800 [place] [address] 03/05/2024 9:00 AM EST Appointment [facility] [address] [facility] 800 [place] [address] 03/05/2024 10:00 AM EST Office Visit [facility] [address] [facility], [address]nd [place] [address] Giana Mays MD [address] [facility] Joaquina Guzman [address] [address] documented as of this encounter Procedures Procedure Name Priority Date/Time Associated Diagnosis Comments MAMMOGRAPHY BREAST DIAGNOSTIC TOMOSYNTHESIS BILATERAL Routine 10/10/2023 11:35 AM EDT 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
--- OUTSIDE RECORDS SUMMARY | 2024-01-11 19:07 | XMS_ITS | Encounter Summary ---
Author Organization Healthcare Address [address] [place] [address] Care Team Providers Care Attendant Arcade Name Role Phone Joyce Shaw TERESA Primary Care Provider [phone] Encounter Details Date Type Department Care Team (Latest Contact Info) Description 09/15/2023 Travel Social History Tobacco Use Types Packs/Day Years Used Date Smoking Tobacco: Some Days Cigarettes 2 0.2 Started: 05/2023 Smokeless Tobacco: Never Alcohol Use Standard Drinks/Week Comments Not Currently 0 (1 standard drink = 0.6 oz pur e alcohol) PHQ-2 Answer Date Recorded Patient Health Questionnaire-2 Score 2 09/11/2023 CAGE ASSESSMENT Answer Date Recorded Cage unable [...] drink first t maurilio in the morning (EYE-TAXONOMIST) to steady your nerves or to get rid of a hangover? 0 09/16/2023 CAGE Questionnaire Score 0 024 Comments No Sex and Gender Information Value Date Recorded Sex Assigned at Not on file Legal Sex Female 7:54 PM EDT Gender Identity Not on file Sexual Orientation Not on file documented as of this encounter Plan of Treatment Upcoming Encounters Date Type Department Care Team (Late st Contact Info) Description 01/12/2024 9:30 AM EST Office Visit [facility] [address] [place] [address] Sean Rod MD [address] [place] [address] 01/16/2024 9:30 AM EST Office Visit [facility] [place] [address] [facility], 2nd [place] [phone] Giana Mays MD 800 [facility] [address] [place] [address] 03/05/2024 8:00 AM EST Appointment [facility] [address] [facility] 800 [place] [address] 03/05/2024 9:00 AM EST Appointment [facility] [address] [facility] 800 [place] [address] 03/05/2024 10:00 AM EST Office Visit [facility] [address] [facility], [address]nd [place] [address] Giana Mays MD [address] [address] documented as of this encounter Visit Diagnoses Not on filedocumented in this encounter Additional Health Concerns Assessment Noted Time A fall risk assessment has been complete d for the patient 09/11/2023 1:44 PM EDT A Body Mass Index follow-up plan has been documented for the patient 09/19/2023 9:28 AM EDT documented as of this encounter Care Teams Attendant Arcade Relationship Specialty Start Date End Date Joyce Shaw APRN [address] [place] [address] PCP - General 09/11/23 documented as of this encounter
--- OUTSIDE RECORDS SUMMARY | 2024-01-11 19:08 | XMS_ITS | Encounter Summary ---
Author Organization Healthcare Address [address] [id number] Care Team Providers Care Safety Net Maker Name Role Phone Hermila Orlando APRN Primary Care Provider [phone] Encounter Details Date Type Department Care Team (Latest Contact Info) Description 11/29/2022 - 11/29/2022 11:59 PM EDT Hospital Encounter [facility] [address] [address] Encounter for other specified special examinations Discharge [...] Visit [facility] [address] [place] [address] Sean Rod MD [address] [place] [address] 01/16/2024 9:30 AM EST Office Visit [facility] Breast [facility] [address] [facility], [address] [place] [address] Giana Mays MD 800 [facility] Joaquina Guzman [address] [phone] 03/05/2024 8:00 AM EST Appointment [facility] Breast [facility] [address] Guzman [facility] 800 [place] [address] 03/05/2024 9:00 AM EST Appointment [facility] [address] [facility] [address] [place] [address] 03/05/2024 10:00 AM EST [facility] [address] [facility], [address] [place] [address] Giana Mays MD 800 [facility] Joaquina Guzman [address] [address] documented as of this encounter Procedures Procedure Name Priority Date/Time Associated Diagnosis Comments US BREAST OUTSIDE IMAGES UPLOAD Routine 11/29/2022 12:00 AM EDT Encounter for other specified special examinations documented in this encounter Results * US Breast Imaging Outside Images Upload (11/29/2022 12:00 AM EDT) Narrative IMAGING - 09/11/2023 [...] examinations documented in this encounter Care Teams Safety Net Maker Relationship Specialty Start Date End Date Hermila Orlando APRN [address] [phone] PCP - General 09/03/20 09/10/23 documented as of this encounter
--- OUTSIDE RECORDS SUMMARY | 2024-01-11 19:08 | XMS_ITS | Encounter Summary ---
Author Organization Healthcare Address [address] [id number] Care Team Providers Care Costume Draper Name Role Phone Hermila Orlando APRN Primary Care Provider [phone] Encounter Details Date Type Department Care Team (Latest Contact Info) Description 09/03/2020 Travel Social History Tobacco Use Types Packs/Day [...] on file Sexual Orientation Not on file COVID-19 Exposure Response Date Recorded In the last month, have you been in contact with someone who was confirmed or suspected to have Coronavirus / COVID-19? No / Unsure 09/03/2020 10:53 AM EDT documented as of this encounter Plan of Treatment Upcoming Encounters Date Type Department Care Team (Late st Contact Info) Description 01/12/2024 9:30 AM EST Office Visit [facility] [address] [place] [address] Sean Rod MD [address] [place] [address] 01/16/2024 9:30 AM EST Office Visit [facility] Breast Care Center [address] [facility], 2nd [place] [address] Giana Mays MD 800 [facility] [address] [place] [address] 03/05/2024 8:00 AM EST Appointment [facility] [address] [facility] 800 [place] [address] 03/05/2024 9:00 AM EST Appointment [facility] [address] [facility] 800 [place] [address] 03/05/2024 10:00 AM EST Office Visit [facility] [address] [facility], 2nd [place] [address] Giana Mays MD 800 [facility] 134 [place] [address] documented as of this encounter Visit Diagnoses Not on filedocumented in this encounter Care Teams Costume Draper Relationship Specialty Start Date End Date Hermila Orlando, DIP PAINTER [address] [place] [address] PCP - General 09/03/20 09/10/23 documented as of this encounter
--- OUTSIDE RECORDS SUMMARY | 2024-01-11 19:08 | XMS_ITS | Encounter Summary ---
Author Organization [facility] Address [address] [place] [address] Care Team Providers Care Black Top Paver Operator Name Role Phone Hermila Orlando APRN Primary Care Provider [phone] Reason for Visit * Reason Onset Date Comments Appointment 12/18/2020 Encounter Details Date Type Department Care Team (Late st Contact Info) Description 12/18/2020 Telephone [facility] [address] [place] [phone] Carolina Delgado [facility] [address] [place] [address] Appointment Social History Tobacco Use Types Packs/Day [...] encounter Miscellaneous Notes * Telephone Encounter - Carolina Delgado MA - 12/18/2020 1:38 PM EDT yenni fountain ti was calling [facility] at [address] Anderson. Cb# [id number] documented in this encounter Plan of Treatment Upcoming Encounters Date Type Department Care Team (Late st Contact Info) Description 01/12/2024 9:30 AM EST Office Visit [facility] [address], [address] [place] [address] Sean Rod MD [address] [place] [address] 01/16/2024 9:30 AM EST Office Visit [facility] [address] [facility], 2nd [place] [address] Giana Mays MD 800 [facility] Megan [facility] [address] [place] [address] 03/05/2024 8:00 AM EST Appointment [facility] 234 [facility] 800 [place] [address] 03/05/2024 9:00 AM EST Appointment [facility] [address] [facility] 800 [place] [address] 03/05/2024 10:00 AM EST Office Visit [facility] [address] [facility], [address] [place] [address] Giana Mays MD 800 [facility] Megan [address] [address] documented as of this encounter Visit Diagnoses Not on filedocumented in this encounter Care Teams Black Top Paver Operator Relationship Specialty Start Date End Date Hermila Orlando, TERESA [address] [facility] 36 [place] [address] PCP - General 09/03/20 09/10/23 documented as of this encounter
--- OUTSIDE RECORDS SUMMARY | 2024-01-11 19:08 | XMS_ITS | Encounter Summary ---
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 15 mg, Intravenous, Once, 1 dose, On Coty 09/03/20 at 1110, STAT Given 09/03/2020 11:27 AM EDT 15 mg lactated Ringer's infusion 1,000 mL 1,000 mL, Intravenous, Once, 1 dose, On Coty 09/03/20 at 1110, STAT New Bag 09/03/2020 11:28 AM EDT 1,000 mL prochlorperazine (Compazine) injection 10 mg 10 mg, Intravenous, Once, 1 dose, On Coty 09/03/20 at 1110, STAT Given 09/03/2020 11:30 AM EDT 10 mg documented in this encounter Active and Recently Administered Medications Times are shown in EDT. Scheduled Medication Order 09/01/2020 09/02/2020 09/03/2020 diphenhydrAMINE (BENADryl) injection 25 mg (COMPLETED) 25 mg, Intravenous, Once, 1 dose, On Coty 09/03/20 at 1110, STAT 1129 (Given - Provid er: Pina Shah RN) ketorolac (Toradol) injection 15 mg (COMPLETED) 15 mg, Intravenous, Once, 1 dose, On Coty 09/03/20 at 1110, STAT 1127 (Given - Provid er: Pina Shah RN) lactated Ringer's infusion 1,000 mL (COMPLETED) 1,000 mL, Intravenous, Once, 1 dose, On Coty 09/03/20 at 1110, STAT 1128 (New Bag - Prov ider: Pina Shah RN)1200 (Stopped - Provider: Pina Shah RN) prochlorperazine (Compazine) injection 10 mg (COMPLETED) 10 mg, Intravenous, Once, 1 dose, On Coty 09/03/20 at 1110, STAT 1130 (Given - Provid er: Pina Shah RN) documented in this encounter Care Teams Shook Splicer Relationship Specialty Start Date End Date Hermila Orlando APRN [address] [place] [address] PCP - General 09/03/20 09/10/23 documented as of this encounter
--- OUTSIDE RECORDS SUMMARY | 2024-01-11 19:08 | XMS_ITS | Encounter Summary ---
Author Organization Healthcare Address [address] [id number] Care Team Providers Care Banquet Stewardess Name Role Phone Hermila Orlando AIRCRAFT TOOL MAKER Primary Care Provider [phone] Encounter Details Date Type Department Care Team (Latest Contact Info) Description 03/21/2022 12:05 AM EST - 03/21/2022 12:09 AM [facility] Hospital Encounter [facility] Breast [facility] [address] [phone] Encounter for other specified special examinations Discharge [...] Description 01/12/2024 9:30 AM EST Office Visit [facility] [address] [place] [address] Sean Rod MD [address] [place] [address] 01/16/2024 9:30 AM EST Office Visit [facility] [address] [facility] [place] [address] Giana Mays MD [address] [facility] Jo[address] Guzman [address] [address] 03/05/2024 8:00 AM EST Appointment P[facility] Breast [facility] [address] [facility] [address] [place] [address] 03/05/2024 9:00 AM EST Appointment PAV [facility] [address] [facility] [address] [place] [address] 03/05/2024 10:00 AM EST Office Visit [facility] [address] [facility] [place] [address] Giana Mays MD [address] [facility] [address] Guzman [address] [address] documented as of this encounter Procedures Procedure Name Priority Date/Time Associated Diagnosis Comments US BREAST OUTSIDE IMAGES UPLOAD Routine 03/21/2022 12:05 AM EST Encounter for other specified special examinations documented in this encounter Results * US Breast Imaging Outside Images Upload (03/21/2022 12:05 AM EST) Narrative IMAGING - 09/11/2023 2:45 PM EDT [...] examinations documented in this encounter Care Teams Banquet Stewardess Relationship Specialty Start Date End Date Hermila Orlando APRN [address] [facility] [address] [phone] PCP - General 09/03/20 09/10/23 documented as of this encounter
--- OUTSIDE RECORDS SUMMARY | 2024-01-11 19:08 | XMS_ITS | Encounter Summary ---
Author Organization Healthcare Address [address] [id number] Care Team Providers Care Registration Rep Name Role Phone Hermila Orlando QUALITY REP Primary Care Provider [phone] Encounter Details Date Type Department Care Team (Latest Contact Info) Description 03/21/2022 12:10 AM EST - 03/21/2022 11:59 PM [facility] Hospital Encounter [facility] Breast Care Center [facility] Center [address] [address] Encounter for other specified special examinations Discharge [...] Description 01/12/2024 9:30 AM EST Office Visit [place] [facility] [address] [place] [address] Sean Rod MD [address] [place] [address] 01/16/2024 9:30 AM EST Office Visit [facility] Breast [facility] [address] [address] [place] [address] Giana Mays MD [address] [facility] [address]man [address] [address] 03/05/2024 8:00 AM EST Appointment P[facility] Breast [facility] [address] [facility] [address] [place] [address] 03/05/2024 9:00 AM EST Appointment PAV [address] Megan [facility] [address] [place] [address] 03/05/2024 10:00 AM EST Office Visit [facility] [address] [place] [address] Giana Mays MD [address] [facility] [address]zman [address] [address] documented as of this encounter Procedures Procedure Name Priority Date/Time Associated Diagnosis Comments MAMMOGRAPHY OUTSIDE IMAGES UPLOAD Routine 03/21/2022 12:10 AM EST Encounter for other specified special examinations documented in this encounter Results * Mammography Outside Images Upload (03/21/2022 12:10 AM EST) Narrative IMAGING - 09/11/2023 2:45 [...] examinations documented in this encounter Care Teams Registration Rep Relationship Specialty Start Date End Date Hermila Orlando APRN [address] [id number] PCP - General 09/03/20 09/10/23 documented as of this encounter
--- OUTSIDE RECORDS SUMMARY | 2024-01-11 19:08 | XMS_ITS | Encounter Summary ---
Author Organization Healthcare Address [address] [id number] Care Team Providers Care Proof Plate Maker Name Role Phone Hermila Orlando APRN Primary Care Provider [phone] Encounter Details Date Type Department Care Team (Latest Contact Info) Description 03/21/2022 - 03/21/2022 12:04 AM EST Hospital Encounter [facility] Breast Care Center [facility] Center [address] [address] Encounter for other specified special [...] Description 01/12/2024 9:30 AM EST Office Visit [place] [facility] [address] [place] [address] Sean Rod MD [address] [place] [address] 01/16/2024 9:30 AM EST Office Visit PAV Breast [facility] [address] [facility], [address] [place] [address] Giana Mays MD [address] [facility] [address] Guzman [facility] [address] [place] [address] 03/05/2024 8:00 AM EST Appointment [facility] Breast [facility] [address] [facility] [address] [place] [address] 03/05/2024 9:00 AM EST Appointment PAV [facility] [address] [facility] [address] [place] [address] 03/05/2024 10:00 AM EST Office Visit [facility] [address] [facility] [place] [address] Giana Mays MD [address] [facility] [place] Guzman [address] [address] documented as of this encounter Procedures Procedure Name Priority Date/Time Associated Diagnosis Comments US BREAST OUTSIDE IMAGES UPLOAD Routine 03/21/2022 12:00 AM EST Encounter for other specified special examinations documented in this encounter Results * US Breast Imaging Outside Images Upload (03/21/2022 12:00 AM EST) Narrative IMAGING - 09/11/2023 2:45 [...] examinations documented in this encounter Care Teams Proof Plate Maker Relationship Specialty Start Date End Date Hermila Orlando APRN [address] [facility] [address] [place] [address] PCP - General 09/03/20 09/10/23 documented as of this encounter
--- OUTSIDE RECORDS SUMMARY | 2024-01-11 19:08 | XMS_ITS | Encounter Summary ---
Author Organization Healthcare Address [address] [id number] Care Team Providers Care French Tutor Name Role Phone Hermila Orlando APRN Primary Care Provider [phone] Encounter Details Date Type Department Care Team (Latest Contact Info) Description 11/18/2022 - 11/18/2022 11:59 PM EDT Hospital Encounter [facility] Breast Care Center [facility] Breast Care Center [address] [address] Encounter for other specified special [...] Description 01/12/2024 9:30 AM EST Office Visit [place] [facility] [address] [place] [address] Sean Rod MD [address] [place] [address] 01/16/2024 9:30 AM EST Office Visit [facility] Breast [facility] [address] [facility], [address] [place] [address] Giana Mays MD [address] [facility] Joaquina Guzman [address] [phone] 03/05/2024 8:00 AM EST Appointment PAV [facility] Breast [facility] [address] [facility] [address] [place] [address] 03/05/2024 9:00 AM EST Appointment P[facility] [address] [facility] [address] [place] [address] 03/05/2024 10:00 AM EST Office Visit [facility] [address] [facility] [place] [address] Giana Mays MD [address] [facility] [address] Guzman [address] [address] documented as of this encounter Procedures Procedure Name Priority Date/Time Associated Diagnosis Comments US BREAST OUTSIDE IMAGES UPLOAD Routine 11/18/2022 12:00 AM EDT Encounter for other specified special examinations documented in this encounter Results * US Breast Imaging Outside Images Upload (11/18/2022 12:00 AM EDT) Narrative IMAGING - 09/11/2023 [...] examinations documented in this encounter Care Teams French Tutor Relationship Specialty Start Date End Date Hermila Orlando APRN [address] [phone] PCP - General 09/03/20 09/10/23 documented as of this encounter
--- NOTE | 2024-01-11 19:20 | PC.NURSE ---
rounded on patient, no needs at this time.
[2024-01-11 19:30] VITALS: BP 151/98; PULSE 131; O2SAT 93
[2024-01-11 19:31] LABS: Adenovirus,PCR Not Detected (NotDetected); Bordetella Pertussis Not Detected (NotDetected); Chlamydophila Pneumoniae, PCR Not Detected (NotDetected); Coronavirus 19, PCR Not Detected (NotDetected); Coronavirus 229E Not Detected (NotDetected); Coronavirus NL63 Not Detected (NotDetected); Coronavirus OC43 Not Detected (NotDetected); Coronovirus HKU1,PCR Not Detected (NotDetected); Human Metapneumovirus Not Detected (NotDetected); Influenza A, PCR Not Detected (NotDetected); Influenza AH1, 2009 Not Detected (NotDetected); Influenza AH1, PCR Not Detected (NotDetected); Influenza AH3,PCR Not Detected (NotDetected); Influenza B, PCR Not Detected (NotDetected); Mycoplasma Pneumoniae, PCR Not Detected (NotDetected); Parainfluenza 1, PCR Not Detected (NotDetected); Parainfluenza 2, PCR Not Detected (NotDetected); Parainfluenza 3, PCR Not Detected (NotDetected); Parainfluenza 4, PCR Not Detected (NotDetected); Respiratory Syncytial Virus Not Detected (NotDetected)
[2024-01-11] MEDS: IPRATROPIUM/ALBUTEROL 3 ML NEB IH (19:55)
[2024-01-11] MEDS: ONDANSETRON 4MG ODT 4 MG SL (20:03)
[2024-01-11 20:30] VITALS: PULSE 120; O2SAT 93
[2024-01-11 20:50] LABS: Albumin Level 4.7 g/dl (3.5-5.0); Basophils # 0.2 K/mm3 (0-0.2); Basophils % 1.3 % (0.1-2.0); Chloride 102 mmol/L (98-107); Eosinophils # 1.1 K/mm3 (0.0-0.4); Eosinophils % 9.1 % (0.1-12.0); Hematocrit 39.7 % (37.0-47.0); Hemoglobin 14.3 g/dL (12.2-16.2); Lymphocytes # 2.8 K/mm3 (0.7-4.5); Lymphocytes % 22.1 % (10-50); Mean Corpuscular HGB Conc 35.9 g/dL (31.8-35.4); Mean Corpuscular Hemoglobin 30.4 pg (27.0-31.2); Mean Corpuscular Volume 84.7 fl (81-99); Mean Platelet Volume 7.9 fl (7.4-10.4); Monocytes # 0.7 K/mm3 (0.1-1.0); Monocytes % 5.4 % (1.7-9.3); Neutrophils # 7.7 K/mm3 (1.8-7.8); Neutrophils % 62.1 % (37.0-80.0); Platelet Count 303 K/mm3 (142-424); Potassium 3.7 mmoL/L (3.5-5.1); Red Blood Count 4.69 M/mm3 (4.20-5.40); Red Cell Distribution Width 13.7 % (11.5-17.5); Sodium 136 mmol/L (136-145); White Blood Count 12.4 K/mm3 (4.8-10.8)
[2024-01-11 20:52] LABS: Blood Urea Nitrogen 9 mg/dl (7-17); Creatinine Clearance Estimated 141 mL/min (50-200); Estimated Glomerular Filt Rate 140 ml/min (>60); GFR (African American) 170 ML/MIN (>60)
[2024-01-11 20:53] LABS: Alanine Aminotransferase 36 U/L (12-78); Albumin/Globulin Ratio 1.4 (1.1-1.8); Alkaline Phosphatase 61 U/L (38-126); Anion Gap 14.7 mEq/L (5-15); Aspartate Amino Transferase 28 U/L (14-36); Bilirubin,Total 0.5 mg/dl (0.2-1.3); Calcium 9.5 mg/dl (8.4-10.2); Carbon Dioxide 23 mmol/L (22.0-30.0); Globulin 3.4 g/dL (1.3-3.2); Glucose 176 mg/dl (74-100); Total Protein,Serum 8.1 g/dl (6.3-8.2)
--- NOTE | 2024-01-11 20:57 | PC.NURSE ---
Spoke to Linsey in lab to get update on lab results
[2024-01-11 21:17] LABS: Rhinovirus/Enterovirus Detected (NotDetected)
[2024-01-11] MEDS: OXYCODONE 5MG IMMEDIATE RELEASE TABLET 5 MG PO (21:27)
[2024-01-11 21:38] VITALS: BP 140/69; PULSE 114; RESP 20; TEMP 36.6; O2SAT 93
[2024-01-11 22:05] LABS: HIV (1&2) Antibody Rapid NONREACTIVE (NONREACTIVE)
[2024-01-13 07:14] LABS: HCV Ab Non Reactive (Non Reactive)
== END 2024-01-11 21:42 | disposition home or self-care (01) ==
PROVIDERS: Physician Assistant; Emergency Provider Emergency Medicine; PCP Nurse Practitioner Family
DX: J06.9 Acute upper respiratory infection, unspecified (principal); R07.89 Other chest pain; R05.9 Cough, unspecified; R09.81 Nasal congestion; R51.9 Headache, unspecified; R11.2 Nausea with vomiting, unspecified; R19.7 Diarrhea, unspecified
CPT/HCPCS: 71046; 80053; 85025; 86803; 87389; 87633; 99283; J7620; Q0162

== ENCOUNTER 2024-03-14 18:20 | Emergency (ER) | payer MEDICAID, SELFPAY ==
[2024-03-14 19:15] VITALS: BP 138/78; PULSE 108; RESP 19; TEMP 36.8; O2SAT 98; BMI 49.2
--- NOTE | 2024-03-14 19:28 | ED_ITS ---
Discharge Plan Disposition Patient Disposition: Home, Self-Care Condition: Good Prescriptions Prescriptions: New azithromycin [Zithromax] 250 mg tablet 250 mg PO UD DOSE PK Qty: 6 0RF Rx Instructions: Take two (2) tablets today, then one (1) tablet days #2 thru #5 oseltamivir [Tamiflu] 75 mg capsule 75 mg PO BID 5 Days Qty: 10 0RF iqltomfhuybfthu-aljwvjuhz-HT [Bromfed DM] 2-30-10 mg/5 mL Syrup 5 ml PO Q6H PRN (Reason: Cough) Qty: 240 0RF ondansetron 4 mg Tablet,Disintegrating 4 mg PO Q8H PRN (Reason: Nausea) Qty: 12 0RF No Action ketorolac 10 mg tablet 10 mg PO Q8H Qty: 90 0RF Rx Instructions: maximum total duration of 5 days from all oral, intranasal, or parenteral formulations ketorolac 10 mg tablet 10 mg PO Q6H PRN (Reason: pain) Qty: 14 0RF metformin 1,000 mg tablet 1,000 mg PO BID lisinopril 20 mg tablet 20 mg PO DAILY Patient Comments: TAKE 1 TABLET BY MOUTH ONCE DAILY propranolol 20 mg tablet 20 mg PO BID Patient Comments: TAKE 1 TABLET BY MOUTH TWICE DAILY prazosin 2 mg Capsule 2 mg PO HS hydrochlorothiazide 12.5 mg Tablet 12.5 mg PO DAILY ondansetron HCl 4 mg tablet 4 mg PO Q8H PRN (Reason: nausea and vomiting) 5 Days Qty: 30 0RF ondansetron 4 mg tablet,disintegrating 4 mg PO Q8H PRN (Reason: nausea and vomiting) 4 Days Qty: 12 0RF paunjboapldqsdc-yknrvshxk-ZI [Bromfed DM] 2-30-10 mg/5 mL syrup 5 ml PO Q4H PRN (Reason: sinus symptoms) Qty: 118 0RF hydrocodone-acetaminophen 5-325 mg tablet 1 tab PO Q8H PRN (Reason: pain) Qty: 3 0RF pantoprazole [Protonix] 40 mg tablet,delayed release (DR/EC) 40 mg PO DAILY lamotrigine [Lamictal] 200 mg tablet 200 mg PO DAILY Patient Comments: TAKE ONE TABLET BY MOUTH EVERY DAY Vraylar 3 mg capsule 3 mg PO DAILY Patient Comments: TAKE ONE CAPSULE BY MOUTH EVERY DAY mupirocin [Centany] 2 % ointment 1 applic topical TID oxycodone-acetaminophen [Percocet] 5-325 mg tablet 1 tab PO Q6H PRN (Reason: post-op pain) Qty: 17 0RF Rx Instructions: Noted allergy of hydrocodone; however, patient has taken hydrocodone on multiple occasions without adverse event. Altered to Percocet for current prescription. Patient/family aware and understands she will require close monitoring. Referrals Follow up/Referrals: Joyce Shaw [Primary Care Provider] - See instructions Activity Restrictions/Add. Instructions Additional Instructions/Restrictions: Drink plenty of fluids. Take tylenol or ibuprofen for pain or fever. Take the medications as directed. Follow up with your regular doctor. GO TO THE ER FOR ANY WORSENING SYMPTOMS Clinical Impressions Clinical Impression: Influenza A, Pharyngitis, Exposure to strep throat Stand Alone Forms Stand Alone Forms: Work/School Release Instructions Patient Instructions: DI for Strep Throat, DI for Influenza -- Adult, Amoxicillin, Oseltamivir Print Language Print Language: Burundian Discharge ED Provider: Aristides Hutton [facility] General Stated complaint: exp to flu-tala, MILLS body aches Mode of Arrival: Ambulatory Source of Information: Patient Limitations: No Limitations Time Seen by Provider: 03/14/24 19:28 Description of Symptoms (Recalled from Triage Doc. by RN): PATIENT C/O BODY ACHES, CHILLS AND COUGH X 3 DAYS. PATIENT RECENTLY EXPOSED TO FLU HEENT Symptoms (Recalled from RN notes): No Resp Symptoms (Recalled from RN notes): Yes Skin Symptoms (Recalled from RN notes): No MS Symptoms (Recalled from RN notes): No Functional Status (Recalled from RN notes): WNL History of Present Illness Provider Complaint: She states that she has felt bad for the past 2 days. She has had fever, chills, malaise, body aches and sore throat. She has been exposed to strep throat and influenza. She has chest congestion and a cough, but she denies shortness of breath. Related Data Home Medications ?Medication ?Instructions ?Recorded ?Confirmed metformin 1,000 mg tablet 1,000 mg PO BID Diabetes 04/26/22 09/06/23 lisinopril 20 mg tablet 20 mg PO DAILY Blood pressure 07/19/22 09/06/23 prazosin 2 mg capsule 2 mg PO HS Nightmares 07/19/22 09/06/23 propranolol 20 mg tablet 20 mg PO BID Blood pressure 07/19/22 09/06/23 hydrochlorothiazide 12.5 mg tablet 12.5 mg PO DAILY Diuretic 09/01/22 09/06/23 cariprazine 3 mg capsule (Vraylar) 3 mg PO DAILY mood 09/20/22 09/06/23 lamotrigine 200 mg tablet 200 mg PO DAILY mood 09/20/22 09/06/23 (Lamictal) pantoprazole 40 mg tablet,delayed 40 mg PO DAILY Acid Reflux 09/20/22 09/06/23 release (Protonix) mupirocin 2 % topical ointment 1 applic topical TID 08/08/23 09/06/23 (Centany) Previous Rx's ?Medication ?Instructions ?Recorded ketorolac 10 mg tablet 10 mg PO Q6H PRN pain #14 tabs 11/16/22 ondansetron HCl 4 mg tablet 4 mg PO Q8H PRN nausea and 07/18/23 vomiting 5 days #30 tabs oxycodone-acetaminophen 5 mg-325 1 tab PO Q6H PRN post-op pain #17 08/10/23 mg tablet (Percocet) tabs ketorolac 10 mg tablet 10 mg PO Q8H #90 tabs 09/06/23 iiibmmahqkpbidk-nukylhjdetqibmj-HW 5 ml PO Q4H PRN sinus symptoms 01/11/24 2 mg-30 mg-10 mg/5 mL oral syrup #118 mL (Bromfed DM) hydrocodone 5 mg-acetaminophen 325 1 tab PO Q8H PRN pain #3 tabs 01/11/24 mg tablet ondansetron 4 mg disintegrating 4 mg PO Q8H PRN nausea and 01/11/24 tablet vomiting 4 days #12 tabs azithromycin 250 mg tablet 250 mg PO UD DOSE PK #6 tabs 03/14/24 (Zithromax) arhgiotzcnbuopd-ymcxrbbbzvdbhdn-[place] 5 ml PO Q6H PRN Cough #240 mL 03/14/24 2 mg-30 mg-10 mg/5 mL oral syrup (Bromfed DM) ondansetron 4 mg disintegrating 4 mg PO Q8H PRN Nausea #12 tabs 03/14/24 tablet oseltamivir 75 mg capsule (Tamiflu) 75 mg PO BID 5 days #10 caps 03/14/24 Allergies Allergy/AdvReac Type Severity Reaction Status Date / Time hydrocodone Allergy Mild Rash Verified 09/06/23 10:19 amoxicillin Allergy Verified 09/06/23 10:19 silver (From Tegaderm AG Allergy Rash Verified 09/06/23 10:19 Mesh) venom-honey bee Allergy Unknown Verified 09/06/23 10:19 allergy reaction venom-wasp protein Allergy Unknown Verified 09/06/23 10:19 allergy reaction Worker's Comp Is this a Worker's Comp case?: No [facility] Disclaimer: The information contained in this section may have been updated after the patient was seen, as this information can be updated by other users. Medical History Sepsis Food impaction of esophagus Esophageal cancer Bilateral nipple discharge Palpitations DM2 (diabetes mellitus, type 2) HTN (hypertension) Sinus tachycardia Abnormal electrocardiogram [ECG] [EKG] Dizziness Edema of both lower extremities Dyspnea Chest pain Suicide attempt by drug ingestion Surgical History History of breast surgery Hx of dilation and curettage x2 Hx of umbilical hernia repair History of hysterectomy History of tonsillectomy History of appendectomy History of laparoscopic cholecystectomy History of colonoscopy History of section x 2 Family History Other Family history of cancer Family history of hypertension Social History (Updated 01/11/24 @ 21:13 by NAM Lozano) Smoking Status: Never smoker second hand exposure: No alcohol intake: never substance use type: denies use, former substance user and crack/cocaine current occupational status: employed Travel in the last 8 weeks: None household members: children housing: house lives independently: Yes marital status: number of children: 2 education level: high school service: No current occupation: [employer] current occupational exposures/hazards: No caffeine: Yes special sofia needs: No agree to transfusion: No do you feel safe at home: Yes victim of physical abuse: No victim of emotional abuse: No victim of sexual abuse: No would you like helpful sources: No Have you lived/traveled outside US in past 30 days?: No Contact w/someone who lives/traveled outside US past 30 days?: No Exposure to someone with infectious disease in past 14 days?: Yes Do you have a fever (greater than 100.4 F or 38 C)?: No Have you tested positive for COVID-19: No Exposed to someone with COVID-19 in past 14 days?: No Do you have a sore throat?: No Do you have a cough?: Yes Do you have any weakness?: Yes Do you have any diarrhea?: No Are you experiencing any unusual bleeding?: No Do you have any muscle aches/pain?: No Do you have any abdominal pain?: No Are you experiencing loss of taste or smell?: No ROS Obtained: Yes All systems reviewed & no additional complaints except as documented Constitutional Constitutional: Reports chills and Reports fever(s) Eyes Eyes: Denies eye discharge ENT Ears, Nose, Mouth, and Throat: Reports as per HPI Cardiovascular Cardiovascular: Denies chest pain Respiratory Respiratory: Denies chest congestion and Reports cough Gastrointestinal Gastrointestingal: Reports nausea; Denies abdominal pain, constipation, cramping, diarrhea or vomiting Musculoskeletal Musculoskeletal: Denies arthralgias Integumentary/Breasts Skin/Breast: Denies rash Neurologic Neurologic: Denies paresthesias Physical Exam General General appearance: alert and in no apparent distress Head Head exam: atraumatic, normocephalic and normal inspection Eye Eye exam: Present normal appearance, PERRL and EOMI ENT ENT exam: Present mucous membranes moist and normal external ear exam Expanded ENT Exam TM/Canal exam: Bilateral TM: erythema and bulging Nose exam: Absent sinus tenderness Mouth exam: Present normal external inspection; Absent drooling Teeth exam: Present normal inspection Throat exam: Present tonsillar erythema, tonsillomegaly and tonsillar exudate Neck Neck exam: Present normal inspection, full ROM and trachea midline; Absent tenderness, meningismus or lymphadenopathy Chest Chest inspection: Present normal inspection and symmetric chest wall rise; Absent tenderness Respiratory Respiratory exam: Present normal lung sounds bilaterally; Absent respiratory distress, wheezes, stridor or accessory muscle use Cardiovascular Cardiovascular exam: Present regular rate and normal rhythm; Absent systolic murmur or diastolic murmur Abdominal Exam Abdominal exam: Present soft and normal bowel sounds; Absent distention, tenderness, guarding, rebound or rigidity Extremities Exam Extremities exam: Present normal inspection and normal capillary refill; Absent calf tenderness Back Exam Back exam: Present normal inspection and full ROM; Absent tenderness, CVA tenderness (R) or CVA tenderness (L) Neurological Exam Neurological exam: Present alert, oriented X3 and CN II-XII intact Psychiatric Psychiatric exam: Present normal affect and normal mood Skin Skin exam: Present warm, dry, intact and normal color Medical Decision Making Medical Records Medical records reviewed: No I reviewed the patient's medical records. Screening: Per USPSTF and CDC recommendations, given the prevalence of disease in our region, it is our hospital?s policy to screen for HIV and viral Hepatitis for all patients aged 18 and over and those with ongoing risk factors. Stepan Inquiry Pt receiving controlled substance: No Vital Signs: 03/14/24 19:15 Temperature 98.2 F Temperature Source Oral Pulse Rate [Left Brachial] 108 H Respiratory Rate 19 Blood Pressure [Left Arm] 138/78 Blood Pressure Mean [Left Arm] 98 Blood Pressure Source [Left Arm] Automatic Cuff Blood Pressure Position [Left Arm] Sitting 02 Sat by Pulse Oximetry 98 Oxygen Delivery Method Room Air Lab Data Lab results reviewed: Yes I reviewed the patient's lab results.
[2024-03-14 19:31] LABS: UTC Influenza A Antigen Positive (Negative); UTC Influenza B Antigen Negative (Negative)
[2024-03-14 20:02] VITALS: BP 138/78; PULSE 108; RESP 19; TEMP 36.8; O2SAT 98
[2024-03-14] MEDS: ONDANSETRON 4MG ODT 4 MG SL (20:05)
== END 2024-03-14 20:06 | disposition home or self-care (01) ==
PROVIDERS: Emergency Provider Nurse Practitioner Family; PCP Nurse Practitioner Family
DX: J10.1 Influenza due to other identified influenza virus with other respiratory manifestations (principal)
CPT/HCPCS: 87804; 99213; G0381; Q0162

== ENCOUNTER 2024-03-17 10:50 | Emergency (ER) | payer MEDICAID, SELFPAY ==
[2024-03-17 12:02] VITALS: BP 125/86; PULSE 94; RESP 20; TEMP 36.5; O2SAT 98; BMI 46.1
[2024-03-17 12:10] LABS: Apearance,Urine Clear (Clear); Color,Urine Dark Yellow (Yellow)
[2024-03-17 12:11] LABS: Bilirubin,Urine Negative (Negative); Blood, Urine Negative (Negative); Glucose,Urine (UA) Negative (Negative); Ketones,Urine Negative (Negative); Protein,Urine Negative (Negative); UTC Leukocyte Esterase,Urine Negative (Negative); UTC Nitrate,Urine Negative (Negative); Urobilinogen,Urine 0.2 EU/dl (0.2)
[2024-03-17 12:13] LABS: UTC Strep Screen (Rapid) Negative (Negative)
--- NOTE | 2024-03-17 12:49 | EXP.UTC ---
Discharge Plan Disposition Patient Disposition: Home, Self-Care Condition: Good Prescriptions Prescriptions: New promethazine 25 mg tablet 25 mg PO TID PRN (Reason: nausea and vomiting) Qty: 10 0RF No Action ketorolac 10 mg tablet 10 mg PO Q8H Qty: 90 0RF Rx Instructions: maximum total duration of 5 days from all oral, intranasal, or parenteral formulations ketorolac 10 mg tablet 10 mg PO Q6H PRN (Reason: pain) Qty: 14 0RF metformin 1,000 mg tablet 1,000 mg PO BID lisinopril 20 mg tablet 20 mg PO DAILY Patient Comments: TAKE 1 TABLET BY MOUTH ONCE DAILY propranolol 20 mg tablet 20 mg PO BID Patient Comments: TAKE 1 TABLET BY MOUTH TWICE DAILY prazosin 2 mg Capsule 2 mg PO HS hydrochlorothiazide 12.5 mg Tablet 12.5 mg PO DAILY ondansetron HCl 4 mg tablet 4 mg PO Q8H PRN (Reason: nausea and vomiting) 5 Days Qty: 30 0RF ondansetron 4 mg tablet,disintegrating 4 mg PO Q8H PRN (Reason: nausea and vomiting) 4 Days Qty: 12 0RF oqupzvsdovgrtws-ddbgypifm-SF [Bromfed DM] 2-30-10 mg/5 mL syrup 5 ml PO Q4H PRN (Reason: sinus symptoms) Qty: 118 0RF hydrocodone-acetaminophen 5-325 mg tablet 1 tab PO Q8H PRN (Reason: pain) Qty: 3 0RF pantoprazole [Protonix] 40 mg tablet,delayed release (DR/EC) 40 mg PO DAILY lamotrigine [Lamictal] 200 mg tablet 200 mg PO DAILY Patient Comments: TAKE ONE TABLET BY MOUTH EVERY DAY Vraylar 3 mg capsule 3 mg PO DAILY Patient Comments: TAKE ONE CAPSULE BY MOUTH EVERY DAY mupirocin [Centany] 2 % ointment 1 applic topical TID oxycodone-acetaminophen [Percocet] 5-325 mg tablet 1 tab PO Q6H PRN (Reason: post-op pain) Qty: 17 0RF Rx Instructions: Noted allergy of hydrocodone; however, patient has taken hydrocodone on multiple occasions without adverse event. Altered to Percocet for current prescription. Patient/family aware and understands she will require close monitoring. azithromycin [Zithromax] 250 mg tablet 250 mg PO UD DOSE PK Qty: 6 0RF Rx Instructions: Take two (2) tablets today, then one (1) tablet days #2 thru #5 oseltamivir [Tamiflu] 75 mg capsule 75 mg PO BID 5 Days Qty: 10 0RF vpmlpoblnngfooe-achtqbrmf-YL [Bromfed DM] 2-30-10 mg/5 mL Syrup 5 ml PO Q6H PRN (Reason: Cough) Qty: 240 0RF ondansetron 4 mg Tablet,Disintegrating 4 mg PO Q8H PRN (Reason: Nausea) Qty: 12 0RF Referrals Follow up/Referrals: Joyce Shaw [Primary Care Provider] - See instructions Activity Restrictions/Add. Instructions Additional Instructions/Restrictions: Stop Zofran. Use OTC vaginal cream as needed for yeast. Take medication as prescribed. Increase fluids and rest. Follow up with PCP if symptoms persist or worsen. Clinical Impressions Clinical Impression: Acute viral syndrome, Nausea Stand Alone Forms Stand Alone Forms: Work/School Release Instructions Patient Instructions: DI for Influenza -- Adult, DI for Nausea -- Adult Print Language Print Language: Marshallese Discharge ED Provider: Kiesha Black [facility] HPI General Stated complaint: flu+, vomiting, poss yeast inf Mode of Arrival: Ambulatory Source of Information: Patient Time Seen by Provider: 03/17/24 12:48 Description of Symptoms (Recalled from Triage Doc. by RN): + FLU ON MONDAY (TX WITH TAMIFLU, ZOFRAN), STILL C/O NAUSEA, EAR PAIN, BA AND YEAST INFECTION?, SON HAS FLU A AND STREP HEENT Symptoms (Recalled from RN notes): Yes Resp Symptoms (Recalled from RN notes): Yes Skin Symptoms (Recalled from RN notes): No MS Symptoms (Recalled from RN notes): No Functional Status (Recalled from RN notes): WNL History of Present Illness Provider Complaint: Pt relates that she came in to the [facility] on and was diagnosed with influenza. She states that she has continued to feel bad and have a lot of nausea even with the Zofran. She states that she is concerned that she may have gotten strep from her son. She is also concerned that she may have a UTI/yeast infection as she has had some burning with urination. She is currently taking Azithromycin and Tamiflu. Related Data Home Medications ?Medication ?Instructions ?Recorded ?Confirmed metformin 1,000 mg tablet 1,000 mg PO BID Diabetes 04/26/22 09/06/23 lisinopril 20 mg tablet 20 mg PO DAILY Blood pressure 07/19/22 09/06/23 prazosin 2 mg capsule 2 mg PO HS Nightmares 07/19/22 09/06/23 propranolol 20 mg tablet 20 mg PO BID Blood pressure 07/19/22 09/06/23 hydrochlorothiazide 12.5 mg tablet 12.5 mg PO DAILY Diuretic 09/01/22 09/06/23 cariprazine 3 mg capsule (Vraylar) 3 mg PO DAILY mood 09/20/22 09/06/23 lamotrigine 200 mg tablet 200 mg PO DAILY mood 09/20/22 09/06/23 (Lamictal) pantoprazole 40 mg tablet,delayed 40 mg PO DAILY Acid Reflux 09/20/22 09/06/23 release (Protonix) mupirocin 2 % topical ointment 1 applic topical TID 08/08/23 09/06/23 (Centany) Previous Rx's ?Medication ?Instructions ?Recorded ketorolac 10 mg tablet 10 mg PO Q6H PRN pain #14 tabs 11/16/22 ondansetron HCl 4 mg tablet 4 mg PO Q8H PRN nausea and 07/18/23 vomiting 5 days #30 tabs oxycodone-acetaminophen 5 mg-325 1 tab PO Q6H PRN post-op pain #17 08/10/23 mg tablet (Percocet) tabs ketorolac 10 mg tablet 10 mg PO Q8H #90 tabs 09/06/23 odmqizqpjgrhwyb-xmgvhydvfratxjf-GL 5 ml PO Q4H PRN sinus symptoms 01/11/24 2 mg-30 mg-10 mg/5 mL oral syrup #118 mL (Bromfed DM) hydrocodone 5 mg-acetaminophen 325 1 tab PO Q8H PRN pain #3 tabs 01/11/24 mg tablet ondansetron 4 mg disintegrating 4 mg PO Q8H PRN nausea and 01/11/24 tablet vomiting 4 days #12 tabs azithromycin 250 mg tablet 250 mg PO UD DOSE PK #6 tabs 03/14/24 (Zithromax) rsktkbgnnkftkpk-cvidmdpveeuczzg-NU 5 ml PO Q6H PRN Cough #240 mL 03/14/24 2 mg-30 mg-10 mg/5 mL oral syrup (Bromfed DM) ondansetron 4 mg disintegrating 4 mg PO Q8H PRN Nausea #12 tabs 03/14/24 tablet oseltamivir 75 mg capsule (Tamiflu) 75 mg PO BID 5 days #10 caps 03/14/24 promethazine 25 mg tablet 25 mg PO TID PRN nausea and 03/17/24 vomiting #10 tabs Allergies Allergy/AdvReac Type Severity Reaction Status Date / Time hydrocodone Allergy Mild Rash Verified 09/06/23 10:19 amoxicillin Allergy Verified 09/06/23 10:19 silver (From Tegaderm AG Allergy Rash Verified 09/06/23 10:19 Mesh) venom-honey bee Allergy Unknown Verified 09/06/23 10:19 allergy reaction venom-wasp protein Allergy Unknown Verified 09/06/23 10:19 allergy reaction Worker's Comp Is this a Worker's Comp case?: No [facility] Disclaimer: The information contained in this section may have been updated after the patient was seen, as this information can be updated by other users. Medical History Sepsis Food impaction of esophagus Esophageal cancer Bilateral nipple discharge Palpitations DM2 (diabetes mellitus, type 2) HTN (hypertension) Sinus tachycardia Abnormal electrocardiogram [ECG] [EKG] Dizziness Edema of both lower extremities Dyspnea Chest pain Suicide attempt by drug ingestion Surgical History History of breast surgery Hx of dilation and curettage x2 Hx of umbilical hernia repair History of hysterectomy History of tonsillectomy History of appendectomy History of laparoscopic cholecystectomy History of colonoscopy History of section x 2 Family History Other Family history of cancer Family history of hypertension Social History (Updated 01/11/24 @ 21:13 by NAM Lozano) Smoking Status: Never smoker second hand exposure: No alcohol intake: never substance use type: denies use, former substance user and crack/cocaine current occupational status: employed Travel in the last 8 weeks: None household members: children housing: house lives independently: Yes marital status: number of children: 2 education level: high school service: No current occupation: [employer] current occupational exposures/hazards: No caffeine: Yes special sofia needs: No agree to transfusion: No do you feel safe at home: Yes victim of physical abuse: No victim of emotional abuse: No victim of sexual abuse: No would you like helpful sources: No Have you lived/traveled outside US in past 30 days?: No Contact w/someone who lives/traveled outside US past 30 days?: No Exposure to someone with infectious disease in past 14 days?: Yes Do you have a fever (greater than 100.4 F or 38 C)?: No Have you tested positive for COVID-19: No Exposed to someone with COVID-19 in past 14 days?: No Do you have a sore throat?: No Do you have a cough?: No Do you have any weakness?: No Do you have any diarrhea?: No Are you experiencing any unusual bleeding?: No Do you have any muscle aches/pain?: No Do you have any abdominal pain?: No Are you experiencing loss of taste or smell?: No ROS Obtained: Yes All systems reviewed & no additional complaints except as documented Constitutional Constitutional: Reports system reviewed and no additional complaints, except as documented, Reports body ache and Reports malaise Eyes Eyes: Reports system reviewed and no additional complaints, except as documented ENT Ears, Nose, Mouth, and Throat: Reports system reviewed and no additional complaints, except as documented, Reports nasal discharge and Reports sore throat Cardiovascular Cardiovascular: Reports system reviewed and no additional complaints, except as documented Respiratory Respiratory: Reports system reviewed and no additional complaints, except as documented and Reports cough Gastrointestinal Gastrointestingal: Reports system reviewed and no additional complaints, except as documented, nausea and vomiting Genitourinary Female Genitourinary: Reports system reviewed and no additional complaints, except as documented and Reports dysuria Musculoskeletal Musculoskeletal: Reports system reviewed and no additional complaints, except as documented Integumentary/Breasts Skin/Breast: Reports system reviewed and no additional complaints, except as documented Neurologic Neurologic: Reports system reviewed and no additional complaints, except as documented Endocrine Endocrine: Reports system reviewed and no additional complaints, except as documented Hematologic/Lymphatic Henatologic/Lymphatic: Reports system reviewed and no additional complaints, except as documented Allergic/Immunologic Allergic/Immunologic: Reports system reviewed and no additional complaints, except as documented Physical Exam General General appearance: alert Comment: ill appearing Head Head exam: atraumatic and normocephalic Eye Eye exam: Present normal appearance Expanded ENT Exam External ear exam: Present normal external inspection Nasal speculum exam: Bilateral: normal Mouth exam: Present normal external inspection Teeth exam: Present normal inspection Comment: post nasal drainage Neck Neck exam: Present normal inspection Chest Chest inspection: Present normal inspection and symmetric chest wall rise Respiratory Respiratory exam: Present other (course sounds throughout) Cardiovascular Cardiovascular exam: Present regular rate and normal rhythm Abdominal Exam Abdominal exam: Present soft and normal bowel sounds; Absent tenderness Extremities Exam Extremities exam: Present normal inspection Back Exam Back exam: Present normal inspection Neurological Exam Neurological exam: Present alert and oriented X3 Psychiatric Psychiatric exam: Present normal affect and normal mood Skin Skin exam: Present warm, dry and intact Lymphatic Lymphatic Findings: no adenopathy Medical Decision Making Medical Records Screening: Per USPSTF and CDC recommendations, given the prevalence of disease in our region, it is our hospital?s policy to screen for HIV and viral Hepatitis for all patients aged 18 and over and those with ongoing risk factors. Stepan Inquiry Pt receiving controlled substance: No Stepan was queried for this patient: No Vital Signs: 03/17/24 12:02 Temperature 97.7 F Temperature Source Oral Pulse Rate [Left Radial] 94 H Respiratory Rate 20 Blood Pressure [Left Arm] 125/86 Blood Pressure Mean [Left Arm] 99 02 Sat by Pulse Oximetry 98 Lab Data Lab results reviewed: Yes I reviewed the patient's lab results. Lab Results 03/17/24 12:06: Urine Color Dark yellow, Urine Appearance Clear, Urine pH 5.0, Ur Specific [place] 1.030, Urine Protein Negative, Urine Glucose (UA) Negative, Urine Ketones Negative, Urine Blood Negative, Urine Nitrate Negative, Urine Bilirubin Negative, Urine Urobilinogen 0.2, Ur Leukocyte Esterase Negative, Strep Scn Rapid Clinic Negative Orders (Tests/Meds): ORDERS Category Date Time Status Strep Screen Confirmation Stat Micro 03/17/24 12:06 Received
[2024-03-17 13:07] VITALS: BP 125/86; PULSE 94; RESP 20; TEMP 36.5
== END 2024-03-17 13:11 | disposition home or self-care (01) ==
PROVIDERS: Emergency Provider Nurse Practitioner Family; PCP Nurse Practitioner Family
DX: J11.1 Influenza due to unidentified influenza virus with other respiratory manifestations (principal)
CPT/HCPCS: 81003; 87880; 99212; G0381